=== PATIENT | female | born 1945 | race Caucasian/White ===

== ENCOUNTER 2016-08-31 15:49 | Observation (INO) | payer MEDICARE, SELFPAY ==
[2016-08-31] MEDS ORDERED: BABY ASPIRIN 81 MG CHEW PO ONE (16:11)
[2016-08-31] MEDS ORDERED: Sodium Chloride 0.9% 1000 ML 1,000 ML IV SCH (16:15)
[2016-08-31] MEDS ORDERED: BABY ASPIRIN 81 MG CHEW ONE (16:16)
[2016-08-31] MEDS ORDERED: Sodium Chloride 0.9% 1000 ML 1,000 ML ONE ×2 (16:16→19:06)
--- NOTE | 2016-08-31 16:19 | ERPHSYRPT ---
- History of Present Illness Time Seen by Provider: 08/31/16 16:05 Historian: patient, EMS Exam Limitations: no limitations Patient Subjective Stated Complaint: PT REPORTS CHEST PRESSURE BEGINNING CLAY 4 DAYS AGO-STATES THAT PRESSURE INCREASED TODAY-DENIES DIAPHOERSIS-DENIES N/V/D Triage Nursing Assessment: PT PINK WARM ET DRY-ALERT ET ANSWERING QUESTIONS- LUNGS CLEAR AFTER NEB TX-RESP NONLABORED Physician History: This is a 70-year-old white female she arrives with complaint of 4 days of chest tightness, shortness of breath, She states that today she felt as if she was passing out she states that she began having ear pain earlier today and felt like she had passed out. She denies any cough she is short of breath she has no nausea no vomiting no fevers. Past medical history includes cataracts, diabetes, COPD, GERD, myocardial infarction, arthritis, depression, chronic back pain, bilateral knee pain. Past surgical history includes appendectomy, hysterectomy, rectal surgery, heart catheter., Back surgery Timing/Duration: day(s) (chest pain for 4 days, patient feels like she had a syncopal episode earlier today) Activities at Onset: none Quality: other (heaviness) Chest Pain Radiation: no radiation Severity of Pain-Max: moderate Severity of Pain-Current: mild Modifying Factors: Improves With: nothing Associated Symptoms: shortness of breath, syncope, No nausea, No vomiting, No palpitations, No heartburn, No abdominal pain, No cough, No hurts to breathe, No diaphoresis, No chills, No fever, No fatigue, No weakness, No swelling/lump in chest, No rash, No headache, No dizziness, No edema, No back pain Prior Chest Pain/Cardiac Workup: heart attack Nitro Today/Relief: no nitro taken today Aspirin Treatment Today: 81 mg x 1 (patient takes aspirin 81 mg orally daily), 81 mg x 2 (Will give patient 162 mg orally in the emergency room) Allergies/Adverse Reactions: codeine [Codeine] Allergy (Severe, Verified 08/31/16 15:59) Iodinated Contrast Media - Oral and [IV Dye, Iodine Containing Contrast ] Allergy (Severe, Verified 08/31/16 15:59) levofloxacin [From Levaquin] Allergy (Severe, Verified 08/31/16 15:59) oxytetracycline [From Terramycin] Allergy (Severe, Verified 08/31/16 15:59) oxytetracycline HCl [From Terramycin] Allergy (Severe, Verified 08/31/16 15:59) Penicillins Allergy (Severe, Verified 08/31/16 15:59) Sulfa (Sulfonamide Antibiotics) [Sulfa(Sulfonamide Antibiotics)] Allergy (Severe , Verified 08/31/16 15:59) iodine Allergy (Unknown, Verified 08/31/16 15:59) Home Medications: Albuterol Sulfate 0.63 mg IH TID PRN 07/18/12 [History] Ascorbic Acid 500 mg [Vitamin C 500 MG] 500 mg PO DAILY 07/18/12 [History] Aspirin [Aspir 81] 81 mg PO DAILY 07/18/12 [History] Carvedilol 6.25 mg [Coreg 6.25 MG] 6.25 mg PO DAILY 07/18/12 [History] Clopidogrel Bisulfate 75 mg [PLAVIX 75 MG Tablet] 75 mg PO DAILY 07/18/12 [History] Cyanocobalamin (Vitamin B-12) [Vitamin B-12] 100 mcg PO DAILY 07/18/12 [History] Fluticasone/Salmeterol Disc [Advair 250-50 Diskus 14 Dose] 1 each IH BID 07/18/12 [History] Hydrocodon/Ibupr 7.5mg/200mg [Vicoprofen 7.5mg/200mg Tablet] 1 tab PO QID PRN 07/18/12 [History] Insulin Glargine,Hum.rec.anlog [Lantus] 35 unit SQ HS 07/18/12 [History] Quinapril HCl 10 mg [Accupril 10MG Tablet] 10 mg PO BID 07/18/12 [History] Theophylline Anhydrous 200 mg* [Arik-Dur 200 mg] 200 mg PO TID 07/18/12 [ History] Tiotropium [place] [Spiriva] 18 mcg IH DAILY 07/18/12 [History] Vitamin E Acid Succinate [Vitamin E] 200 unit PO DAILY 07/18/12 [History] Acetaminophen 500 mg [Tylenol Extra Strength 500 mg] 2 tab PO Q6H PRN 06/20 [History] Omeprazole 40 mg PO DAILY 07/19/12 [History] Insulin Lispro [Humalog] 23 units SQ ACHS 01/18/16 [History] Hx Tetanus, Diphtheria Vaccination/Date Given: Yes Hx Influenza Vaccination/Date Given: No Hx Pneumococcal Vaccination/Date Given: Yes Immunizations Up to Date: Yes - Review of Systems Constitutional: No Fever, No Chills Eyes: No Symptoms Ears, Nose, & Throat: No Symptoms, No Ear Pain, No Ear Discharge, No Hearing Changes, No Tinnitus, No Nose Pain, No Nose Congestion, No Nose Discharge, No Sinus Drainage, No Epistaxis, No Mouth Pain, No Mouth Swelling, No Loose Teeth, No Throat Pain, No Throat Swelling, No Hoarse, No Painful Swallowing, No Snoring Respiratory: Dyspnea, No No Symptoms, No Cough, No Cyanosis, No Dyspnea on Exertion (CRANDALL), No Wheezing Cardiac: Chest Pain Abdominal/Gastrointestinal: No Abdominal Pain, No Nausea, No Vomiting, No Diarrhea Genitourinary Symptoms: No Dysuria Musculoskeletal: No Back Pain, No Neck Pain Skin: No Rash Neurological: Other (syncopal episode today), No Focal Weakness, No Gait Changes , No Headache, No Irritability, No Lethargy, No Paralysis, No Parasthesia, No Seizure, No Sensory Changes, No Speech Changes, No Tics, No Tremors, No Vertigo Psychological: No Alcohol Abuse, No Drug Abuse Endocrine: No Symptoms All Other Systems: Reviewed and Negative - Past Medical History Pertinent Past Medical History: Yes Neurological History: No Pertinent History ENT History: Cataracts Cardiac History: Hypertension, Myocardial Infarction (MT) Respiratory History: COPD Endocrine Medical History: Diabetes Type II Musculoskeletal History: Arthritis GI Medical History: GERD History: No Pertinent History Psycho-Social History: Depression Female Reproductive Disorders: No Pertinent History Other Medical History: CHRONIC BACK PAIN, VENITA KNEE PAIN - Past Surgical History Past Surgical History: Yes Neuro Surgical History: No Pertinent History Cardiac: No Pertinent History Respiratory: No Pertinent History Gastrointestinal: Appendectomy Genitourinary: No Pertinent History Musculoskeletal: Other Female Surgical History: Hysterectomy Other Surgical History: rectal surgery,back surgery,heart cath - Social History Smoking Status: Never smoker Exposure to second hand smoke: No Drug Use: none Patient Lives Alone: No - Nursing Vital Signs Temperature: 98.3 F Temperature Source: Oral Pulse Rate: 142 Respiratory Rate: 22 Pain Intensity: 2 - Physical Exam General Appearance: mild distress, other (well-developed obese white female mild distress, alert oriented 3) Eye Exam: PERRL/EOMI, eyes nml inspection Ears, Nose, Throat Exam: normal ENT inspection, moist mucous membranes Neck Exam: normal inspection, non-tender, supple, full range of motion Respiratory Exam: normal breath sounds, lungs clear, No respiratory distress Cardiovascular Exam: tachycardia, other (heart regular tachycardic), No murmur Gastrointestinal/Abdomen Exam: soft, No tenderness, No mass Back Exam: normal inspection, No CVA tenderness, No vertebral tenderness Extremity Exam: normal inspection, normal range of motion Neurologic Exam: alert, oriented x 3, cooperative, manager port II-XII nml as tested, normal mood/affect, sensation nml, No motor deficits Skin Exam: normal color SpO2 Interpretation: normal (92%) SpO2: 92 Oxygen Delivery: Room Air - Course Nursing assessment & vital signs reviewed: Yes EKG Interpreted by Me: RATE (141bpm), Sinus Tach, NORMAL AXIS, Other (EKG, sinus tachycardia 141 bpm normal axis no acute ST or T wave changes noted.) - Radiology Exams Chest X-ray Interpretation: Interpreted by me, Negative, No Pneumonia, No Pneumothorax , Other (chest x-ray no pneumonia, no CHF, no pneumothorax no acute disease process noted) Ordered Tests: Active Orders 24 hr Category Date Time Status Bedrest with BRP/BSC ROUTINE Activity 08/31/16 18:24 Active Accucheck ACHS Care 08/31/16 18:24 Active Accucheck STAT Care 08/31/16 16:12 Completed Admission/Status Order ROUTINE Care 08/31/16 18:24 Active Call Admit Doctor for Orders ROUTINE Care 08/31/16 18:24 Active Code Status Order ROUTINE Care 08/31/16 18:24 Active EKG-ER Only STAT Care 08/31/16 16:11 Completed IV Care Q6H Care 08/31/16 18:24 Active Implement Chest Pain Pathway ROUTINE Care 08/31/16 18:24 Active Oxygen-ED Only NASAL CANNULA 2 lpm Care 08/31/16 16:11 Completed Wilber Huerta, Apply ROUTINE Care 08/31/16 18:24 Active Telemetry ROUTINE Care 08/31/16 18:24 Active Weight,Daily 0600 Care 08/31/16 18:24 Active 1800 Calorie ADA Diet 08/31/16 Breakfast Active Cardiac Diet Diet 08/31/16 Breakfast Active CHEST 1 VIEW (PORTABLE) Stat Exams 08/31/16 16:11 Taken CBC W DIFF Stat Lab 08/31/16 16:00 Completed CMP Stat Lab 08/31/16 16:00 Completed D-DIMER QUANTITATION Stat Lab 08/31/16 16:00 Completed LIPID PROFILE AM.LAB Lab 09/01/16 04:00 Ordered Lactic Acid Urgent Lab 08/31/16 16:30 Completed Lactic Acid Urgent Lab 08/31/16 17:21 Completed Manual Differential NC Stat Lab 08/31/16 16:00 Completed NT PRO BNP Stat Lab 08/31/16 16:00 Completed THEOPHYLLINE Stat Lab 08/31/16 16:00 Completed TROPONIN Q3H Lab 08/31/16 16:00 Completed TROPONIN Q3H Lab 08/31/16 19:17 Completed TROPONIN Q3H Lab 08/31/16 22:15 Ordered TROPONIN Q3H Lab 09/01/16 01:15 Ordered TROPONIN Q3H Lab 09/01/16 04:15 Ordered VENOUS BLOOD GAS Urgent Lab 08/31/16 16:30 Completed EKG Q8HX2,QAMX3,PRN RT 08/31/16 18:24 Active Pulse Oximetry Q4H RT 08/31/16 18:24 Active Transfer Order Routine Transfer 08/31/16 17:22 Completed Medication Summary Generic Name Dose Route Start Last Admin Trade Name Freq PRN Reason Stop Dose Admin Acetaminophen 650 mg 08/31/16 18:24 Tylenol 325 Mg PO 09/30/16 18:23 Q4H PRN PRN PAIN AND/OR FEVER Al Hydrox/Mg Hydrox/Simethicone 30 ml 08/31/16 18:24 Maalox Es 30 Ml Unit Dose PO 09/30/16 18:23 Q4H PRN PRN INDIGESTION Aspirin 162 mg 09/01/16 10:00 Ecotrin 325 Mg PO 10/01/16 09:59 DAILY SONAL Sodium Chloride 1,000 mls @ 100 mls/hr 08/31/16 18:24 08/31/16 19:09 Sodium Chloride 0.9% 500 Ml IV 09/30/16 18:23 100 mls/hr .Q10H SONAL Administration Insulin Aspart 0 unit 08/31/16 18:24 Novolog Insulin SQ 09/30/16 18:23 PRN PRN HYPERGLYCEMIA Magnesium Hydroxide 30 - 60 ml 08/31/16 18:24 Milk Of Magnesia 30 Ml PO 09/30/16 18:23 QDP PRN CONSTIPATION Ondansetron HCl 4 mg 08/31/16 18:24 Zofran 4 Mg/2 Ml Vial IV 09/30/16 18:23 Q4H PRN PRN NAUSEA/VOMITING Senna/Docusate Sodium 2 udtab 08/31/16 18:24 Senokot-S Tablet PO 09/30/16 18:23 BID PRN PRN CONSTIPATION Discontinued Medications Generic Name Dose Route Start Last Admin Trade Name Freq PRN Reason Stop Dose Admin Aspirin 162 mg 08/31/16 16:11 08/31/16 16:23 Baby Aspirin 81 Mg Chew PO 08/31/16 16:12 162 mg STAT ONE Administration Aspirin Confirm 08/31/16 16:16 Baby Aspirin 81 Mg Chew Administered 08/31/16 16:17 Dose 162 mg .ROUTE .STK-MED ONE Diltiazem HCl 10 mg 08/31/16 16:25 08/31/16 16:28 Cardizem Iv 50 Mg/10 Ml IV 08/31/16 16:26 10 mg STAT ONE Administration Diltiazem HCl Confirm 08/31/16 16:27 Cardizem Iv 50 Mg/10 Ml Administered 08/31/16 16:28 Dose 50 mg IV .STK-MED ONE Sodium Chloride 1,000 mls @ 100 mls/hr 08/31/16 16:15 08/31/16 16:23 Sodium Chloride 0.9% 1000 Ml IV 09/30/16 16:14 100 mls/hr .Q10H SONAL Administration Sodium Chloride Confirm 08/31/16 16:16 Sodium Chloride 0.9% 1000 Ml Administered 08/31/16 16:17 Dose 1,000 mls @ ud .ROUTE .STK-MED ONE Sodium Chloride Confirm 08/31/16 19:06 Sodium Chloride 0.9% 1000 Ml Administered 08/31/16 19:07 Dose 1,000 mls @ ud .ROUTE .STK-MED ONE Lab/Rad Data: Laboratory Result Diagrams 08/31/16 16:00 08/31/16 16:00 Laboratory Results 08/31/16 08/31/16 08/31/16 Range/Units 17:21 16:30 16:30 WBC (4.0-10.5) K/mm3 RBC (4.1-5.4) M/mm3 Hgb (12.0-16.0) gm/dl Hct (35-47) % MCV (78-100) fl MCH (26-32) pg MCHC (32-36) g/dl RDW (11.5-14.0) % Plt Count (150-450) K/mm3 MPV (6-9.5) fl Segmented Neutrophils (36.0-66.0) % Lymphocytes (Manual) (24-44) % Monocytes (Manual) (0.0-12.0) % Eosinophils (Manual) (0.00-3.0) % Differential Comment Platelet Estimate (NORMAL) D-Dimer (0.00-0.49) mg/L VBG pH 7.34 (7.32-7.42) VBG pCO2 at Pat Temp 63 H* (42-55) mm/Hg VBG pO2 at Pat Temp 34 (25-40) mm/Hg VBG HCO3 34.0 H* (22-28) meq/L VBG O2 Sat (Natali) 66.4 L (95-100) VBG Base Excess 5.5 H (-2.0-2.0) VBG Hemoglobin 17.3 VBG Carboxyhemoglobin 2.7 (0.0-6.9) % T HGB POC Potassium 4.2 (3.5-5.1) Sodium (136-145) mEq/L Potassium (3.5-5.1) mEq/L Chloride (98-107) mEq/L Carbon Dioxide (21-32) mEq/L Anion Gap (5-15) MEQ/L BUN (9-20) mg/dL Creatinine (0.55-1.30) mg/dl Estimated GFR ML/MIN Glucose (70-110) MG/DL Lactic Acid 1.3 2.5 H (0.4-2.0) Calcium (8.5-10.1) mg/dL Total Bilirubin (0.2-1.0) mg/dL AST (15-37) U/L ALT (12-78) U/L Alkaline Phosphatase (46-116) U/L Troponin I (0.000-0.056) ng/ml NT-Pro-B Natriuret Pep (0-125) pg/ml Serum Total Protein (6.4-8.2) gm/dL Albumin (3.4-5.0) g/dL Theophylline (10-20.0) ug/ml 08/31/16 08/31/16 08/31/16 Range/Units 16:00 16:00 16:00 WBC (4.0-10.5) K/mm3 RBC (4.1-5.4) M/mm3 Hgb (12.0-16.0) gm/dl Hct (35-47) % MCV (78-100) fl MCH (26-32) pg MCHC (32-36) g/dl RDW (11.5-14.0) % Plt Count (150-450) K/mm3 MPV (6-9.5) fl Segmented Neutrophils (36.0-66.0) % Lymphocytes (Manual) (24-44) % Monocytes (Manual) (0.0-12.0) % Eosinophils (Manual) (0.00-3.0) % Differential Comment Platelet Estimate (NORMAL) D-Dimer 0.333 (0.00-0.49) mg/L VBG pH (7.32-7.42) VBG pCO2 at Pat Temp (42-55) mm/Hg VBG pO2 at Pat Temp (25-40) mm/Hg VBG HCO3 (22-28) meq/L VBG O2 Sat (Natali) (95-100) VBG Base Excess (-2.0-2.0) VBG Hemoglobin VBG Carboxyhemoglobin (0.0-6.9) % T HGB POC Potassium (3.5-5.1) Sodium (136-145) mEq/L Potassium (3.5-5.1) mEq/L Chloride (98-107) mEq/L Carbon Dioxide (21-32) mEq/L Anion Gap (5-15) MEQ/L BUN (9-20) mg/dL Creatinine (0.55-1.30) mg/dl Estimated GFR ML/MIN Glucose (70-110) MG/DL Lactic Acid (0.4-2.0) Calcium (8.5-10.1) mg/dL Total Bilirubin (0.2-1.0) mg/dL AST (15-37) U/L ALT (12-78) U/L Alkaline Phosphatase (46-116) U/L Troponin I < 0.017 (0.000-0.056) ng/ml NT-Pro-B Natriuret Pep (0-125) pg/ml Serum Total Protein (6.4-8.2) gm/dL Albumin (3.4-5.0) g/dL Theophylline 13.9 (10-20.0) ug/ml 08/31/16 08/31/16 Range/Units 16:00 16:00 WBC 10.3 (4.0-10.5) K/mm3 RBC 5.71 H (4.1-5.4) M/mm3 Hgb 17.0 H (12.0-16.0) gm/dl Hct 49.2 H (35-47) % MCV 86.2 (78-100) fl MCH 29.7 (26-32) pg MCHC 34.6 (32-36) g/dl RDW 13.8 (11.5-14.0) % Plt Count 235 (150-450) K/mm3 MPV 10.4 H (6-9.5) fl Segmented Neutrophils 58 (36.0-66.0) % Lymphocytes (Manual) 30 (24-44) % Monocytes (Manual) 9 (0.0-12.0) % Eosinophils (Manual) 3 (0.00-3.0) % Differential Comment ABNORMAL Platelet Estimate NORMAL (NORMAL) D-Dimer (0.00-0.49) mg/L VBG pH (7.32-7.42) VBG pCO2 at Pat Temp (42-55) mm/Hg VBG pO2 at Pat Temp (25-40) mm/Hg VBG HCO3 (22-28) meq/L VBG O2 Sat (Natali) (95-100) VBG Base Excess (-2.0-2.0) VBG Hemoglobin VBG Carboxyhemoglobin (0.0-6.9) % T HGB POC Potassium (3.5-5.1) Sodium 143 (136-145) mEq/L Potassium 4.0 (3.5-5.1) mEq/L Chloride 103 (98-107) mEq/L Carbon Dioxide 32.5 H (21-32) mEq/L Anion Gap 11.6 (5-15) MEQ/L BUN 20 (9-20) mg/dL Creatinine 0.71 (0.55-1.30) mg/dl Estimated GFR > 60 ML/MIN Glucose 120 H (70-110) MG/DL Lactic Acid (0.4-2.0) Calcium 9.8 (8.5-10.1) mg/dL Total Bilirubin 0.7 (0.2-1.0) mg/dL AST 32 (15-37) U/L ALT 22 (12-78) U/L Alkaline Phosphatase 82 (46-116) U/L Troponin I (0.000-0.056) ng/ml NT-Pro-B Natriuret Pep < 5.0 (0-125) pg/ml Serum Total Protein 7.4 (6.4-8.2) gm/dL Albumin 3.9 (3.4-5.0) g/dL Theophylline (10-20.0) ug/ml - Progress Progress: improved Air Movement: fair Progress Note: 08/31/16 17:14 Patient feeling better after Cardizem and aspirin patient is receiving IV fluid bolus. Heart rate on arrival was 140 now running in the 70s. Troponin within normal limits BNP less than 5 d-dimer 0.33 chest x-ray no acute changes are noted EKG tachycardia otherwise no acute changes. Will discuss case with Dr. Cooper. 08/31/16 17:17 Case is discussed with Dr. Cooper Will place patient in observation telemetry. Diagnosis COPD with exacerbation, chest pain, tachycardia. Will continue IV fluids continue duo neb treatments continue serial cardiac enzymes. Will order lactate prior to leaving ER as per protocol - Departure Time of Disposition: 17:30 Departure Disposition: Observation Clinical Impression: COPD with exacerbation, Tachycardia Chest pain Qualifiers: Chest pain type: unspecified Qualified Code(s): R07.9 - Chest pain, unspecified Condition: Fair Critical Care Time: No
[2016-08-31] MEDS ORDERED: Cardizem IV 50 MG/10 ML IV ONE ×2 (16:25→16:27)
[2016-08-31 16:27] LABS: Mean Cell Volume 86.2 fl (78-100); Mean Platelet Volume 10.4 fl (6-9.5); Platelet Count 235 K/mm3 (150-450); Red Blood Count 5.71 M/mm3 (4.1-5.4); Red Cell Distribution Width 13.8 % (11.5-14.0); White Blood Count 10.3 K/mm3 (4.0-10.5)
[2016-08-31 16:34] LABS: Mean Corpuscular Hemoglobin 29.7 pg (26-32)
[2016-08-31 16:35] LABS: VBG BASE EXCESS 5.5 (-2.0-2.0); VBG CARBOXYHEMOGLOBIN 2.7 % T HGB (0.0-6.9); VBG HEMOGLOBIN 17.3; VBG O2 SATURATION 66.4 (95-100); VBG POTASSIUM 4.2 (3.5-5.1); VBG pH 7.34 (7.32-7.42)
[2016-08-31 16:56] LABS: ALBUMIN 3.9 g/dL (3.4-5.0); ALKALINE PHOSPHATASE 82 U/L (46-116); ANION GAP 11.6 MEQ/L (5-15); BILIRUBIN,TOTAL 0.7 mg/dL (0.2-1.0); BLOOD UREA NITROGEN 20 mg/dL (9-20); CHLORIDE 103 mEq/L (98-107); Carbon Dioxide 32.5 mEq/L (21-32); Glucose 120 MG/DL (70-110); SGOT/AST 32 U/L (15-37); SGPT/ALT 22 U/L (12-78); SODIUM 143 mEq/L (136-145); Total Protein 7.4 gm/dL (6.4-8.2)
[2016-08-31] MEDS ORDERED: MILK OF MAGNESIA 30 ML PO PRN (18:24)
[2016-08-31] MEDS ORDERED: Zofran 4 MG/2 ML VIAL IV PRN (18:24)
[2016-08-31] MEDS ORDERED: NovoLOG Insulin SQ PRN (18:24)
[2016-08-31] MEDS ORDERED: Senokot-S Tablet PO PRN (18:24)
[2016-08-31] MEDS ORDERED: MAALOX ES 30 ML UNIT DOSE PO PRN (18:24)
[2016-08-31] MEDS ORDERED: TYLENOL 325 MG PO PRN (18:24)
[2016-08-31 19:36] LABS: Eosinophil 3 % (0.00-3.0); Platelet Estimate NORMAL (NORMAL); Total Cells Counted 100
--- NOTE | 2016-08-31 20:54 | XRAY ---
Indication: Chest pain. Comparison: May 06, 2014 Portable chest remains clear. Heart and mediastinal structures within normal limits for AP portable technique. Bony thorax intact again with mild osteopenia and degenerative changes. Impression: Stable nonacute chest.
[2016-08-31] MEDS: Advair Hfa 230/21 Mcg COMMON CANISTER IH SCH (21:10)
[2016-08-31] MEDS ORDERED: PROVENTIL COMMON CANISTER IH PRN (21:17)
[2016-08-31] MEDS ORDERED: Lantus Insulin SQ SCH (22:00)
[2016-08-31] MEDS ORDERED: Nitrostat 0.4 MG Tablet SL PRN (22:32)
[2016-09-01 01:04] LABS: COMPLETE URINE MICROSCOPIC? NO; Collection Type CLEAN CATCH
[2016-09-01] MEDS ORDERED: Sodium Chloride 0.9% 1000 ML 1,000 ML ONE (04:17)
[2016-09-01] MEDS: Advair Hfa 230/21 Mcg COMMON CANISTER IH SCH (07:22)
[2016-09-01] MEDS ORDERED: NovoLOG Insulin SQ PRN (07:28)
[2016-09-01] MEDS ORDERED: INSULIN LISPRO SQ SCH (07:30)
[2016-09-01] MEDS ORDERED: Vitamin E 400 UNIT SOFTGEL PO SCH (10:00)
[2016-09-01] MEDS ORDERED: VITAMIN B-12 100 MCG PO SCH (10:00)
[2016-09-01] MEDS ORDERED: Vitamin C 500 MG PO SCH (10:00)
[2016-09-01] MEDS ORDERED: ECOTRIN 81 MG PO SCH (10:00)
[2016-09-01] MEDS ORDERED: Protonix 40MG Tablet PO SCH (10:00)
[2016-09-01] MEDS ORDERED: Ecotrin 325 MG PO SCH (10:00)
[2016-09-01] MEDS ORDERED: [UNRECOGNIZED DRUG - OTHER] PO SCH (10:00)
[2016-09-01] MEDS ORDERED: NON-FORMULARY ITEM (Omeprazole [Omeprazole] 40 MG) PO SCH (10:00)
[2016-09-01] MEDS ORDERED: PLAVIX 75 MG Tablet PO SCH (10:00)
[2016-09-01] MEDS ORDERED: Accupril 10MG Tablet PO SCH (10:00)
[2016-09-01] MEDS ORDERED: THEO-DUR 200 MG PO SCH (10:00)
[2016-09-01] MEDS ORDERED: Coreg 6.25 MG PO SCH (10:00)
[2016-09-01 11:50] VITALS: BP 151/69; PULSE 64; O2SAT 93
--- NOTE | 2016-09-01 16:28 | PCM.SSS ---
History of Present Illness - Chief Complaint Chief Complaint: chest pain, shortness of breath for 1-2 days History of Present Illness: is a 70 year old white female she arrives with complaint of 4 days of chest tightness, shortness of breath, She states that today she felt as if she was passing out she states that she began having ear pain earlier today and felt like she had passed out. She denies any cough she is short of breath she has no nausea no vomiting no fevers. Past medical history includes cataracts, diabetes, COPD, GERD, myocardial infarction, arthritis, depression, chronic back pain, bilateral knee pain. Past surgical history includes appendectomy, hysterectomy, rectal surgery, heart catheter., Back surgery Timing/Duration: day(s) (chest pain for 4 days, patient feels like she had a syncopal episode earlier today) Activities at Onset: none Quality: other (heaviness) Chest Pain Radiation: no radiation Severity of Pain-Max: moderate Severity of Pain-Current: mild Modifying Factors: Improves With: nothing Associated Symptoms: shortness of breath, syncope, No nausea, No vomiting, No palpitations, No heartburn, No abdominal pain, No cough, No hurts to breathe, No diaphoresis, No chills, No fever, No fatigue, No weakness, No swelling/lump in chest, No rash, No headache, No dizziness, No edema, No back pain Prior Chest Pain/Cardiac Workup: heart attack Nitro Today/Relief: no nitro taken today Aspirin Treatment Today: 81 mg x 1 (patient takes aspirin 81 mg orally daily), 81 mg x 2 (Will give patient 162 mg orally in the emergency room) - Review of Systems Constitutional: No Fever, No Chills Eyes: No Symptoms Ears, Nose, & Throat: No Symptoms Respiratory: Orthopnea, Short Of Breath, No Cough Cardiac: Chest Pain, No Edema, No Syncope Abdominal/Gastrointestinal: No Abdominal Pain, No Nausea, No Vomiting, No Diarrhea Genitourinary Symptoms: No Dysuria Musculoskeletal: No Back Pain, No Neck Pain Skin: No Rash Neurological: No Dizziness, No Focal Weakness, No Sensory Changes Psychological: No Symptoms Endocrine: No Symptoms Hematologic/Lymphatic: No Symptoms Immunological/Allergic: No Symptoms Medications & Allergies Home Medications: Home Medication List Albuterol Sulfate 0.63 mg IH TID PRN 07/18/12 [History Confirmed 08/31/16] Ascorbic Acid 500 mg [Vitamin C 500 MG] 500 mg PO DAILY 07/18/12 [History Confirmed 08/31/16] Aspirin [Aspir 81] 81 mg PO DAILY 07/18/12 [History Confirmed 08/31/16] Carvedilol 6.25 mg [Coreg 6.25 MG] 6.25 mg PO DAILY 07/18/12 [History Confirmed 08/31/16] Clopidogrel Bisulfate 75 mg [PLAVIX 75 MG Tablet] 75 mg PO DAILY 07/18/12 [History Confirmed 08/31/16] Cyanocobalamin (Vitamin B-12) [Vitamin B-12] 100 mcg PO DAILY 07/18/12 [History Confirmed 08/31/16] Insulin Glargine,Hum.rec.anlog [Lantus] 35 unit SQ HS 07/18/12 [History Confirmed 08/31/16] Quinapril HCl 10 mg [Accupril 10MG Tablet] 10 mg PO BID 07/18/12 [History Confirmed 08/31/16] Theophylline Anhydrous 200 mg* [Arik-Dur 200 mg] 200 mg PO TID 07/18/12 [ History Confirmed 08/31/16] Vitamin E Acid Succinate [Vitamin E] 200 unit PO DAILY 07/18/12 [History Confirmed 08/31/16] Omeprazole 40 mg PO DAILY 07/19/12 [History Confirmed 08/31/16] Insulin Lispro [Humalog] 23 units SQ ACHS 01/18/16 [History Confirmed 08/31/16] Allergies/Adverse Reactions: Allergies Allergy/AdvReac Type Severity Reaction Status Date / Time codeine [Codeine] Allergy Severe Verified 08/31/16 15:59 Iodinated Contrast Media - Allergy Severe Verified 08/31/16 15:59 Oral and [IV Dye, Iodine Containing Contrast ] levofloxacin [From Levaquin] Allergy Severe Verified 08/31/16 15:59 oxytetracycline Allergy Severe Verified 08/31/16 15:59 [From Terramycin] oxytetracycline HCl Allergy Severe Verified 08/31/16 15:59 [From Terramycin] Penicillins Allergy Severe Verified 08/31/16 15:59 Sulfa (Sulfonamide Allergy Severe Verified 08/31/16 15:59 Antibiotics) [Sulfa(Sulfonamide Antibiotics)] iodine Allergy Unknown Verified 08/31/16 15:59 - Past Medical History Past Medical History: Yes Neurological History: No Pertinent History ENT History: Cataracts Cardiac History: Hypertension, Myocardial Infarction (ME) Respiratory History: COPD Endocrine Medical History: Diabetes Type II Musculoskelatal History: Arthritis GI Medical History: GERD History: No Pertinent History Pyscho-Social History: Depression Reproductive Disorders: No Pertinent History Comment: CHRONIC BACK PAIN, VENITA KNEE PAIN - Female History Are you now?: No - Past Surgical History Past Surgical History: Yes Neuro Surgical History: No Pertinent History Cardiac History: No Pertinent History Respiratory Surgery: No Pertinent History GI Surgical History: Appendectomy Genitourinary Surgical Hx: No Pertinent History Musculskeletal Surgical Hx: Other Female Surgical History: Hysterectomy Other Surgical History: rectal surgery,back surgery,heart cath - Social History Smoking Status: Never smoker Exposure to second hand smoke: No Alcohol: None Drug Use: none - Physical Exam Vital Signs: Vital Signs - 24 hr Temp Pulse Resp BP Pulse Ox 09/01/16 11:46 98.3 F 64 17 151/69 93 L 09/01/16 08:00 98.2 F 66 18 152/68 94 L 09/01/16 07:00 52 L 18 92 L 09/01/16 04:00 97.9 F 60 18 142/72 95 09/01/16 00:01 60 09/01/16 00:00 98.0 F 60 16 119/60 94 L 08/31/16 21:10 65 15 94 L 08/31/16 20:30 98.3 F 142 H 22 92 L 08/31/16 20:00 98.3 F 65 15 132/63 94 L 08/31/16 19:53 97.5 F 65 19 132/63 94 L 08/31/16 17:15 69 16 85/38 94 L General Appearance: no apparent distress, alert Neurologic Exam: alert, oriented x 3, cooperative, normal mood/affect, nml cerebellar function, nml station & gait, sensation nml, No motor deficits Eye Exam: PERRL/EOMI, eyes nml inspection Ears, Nose, Throat Exam: normal ENT inspection, TMs normal, pharynx normal, moist mucous membranes Neck Exam: normal inspection, non-tender, supple, full range of motion Respiratory Exam: normal breath sounds, lungs clear, No respiratory distress Cardiovascular Exam: regular rate/rhythm, normal heart sounds, normal peripheral pulses Gastrointestinal/Abdomen Exam: soft, normal bowel sounds, No tenderness, No mass Back Exam: normal inspection, normal range of motion, No CVA tenderness, No vertebral tenderness Extremity Exam: normal inspection, normal range of motion, pelvis stable Skin Exam: normal color, warm, dry, No rash Lymphatic Exam: No adenopathy Results - Labs Lab/Micro Results: Accuchecks Date 09/01/16 Date 09/01/16 Date 08/31/16 Time 11:39 Time 07:08 Time 21:58 Accucheck Value: 284 Accucheck Value: 125 Accucheck Value: 210 Lab Results-Last 24 Hours 08/31/16 08/31/16 08/31/16 Range/Units 19:17 22:20 23:40 Hemoglobin A1c (4.5-6.2) Troponin I < 0.017 0.018 (0.000-0.056) ng/ml Triglycerides (30-200) mg/dL Cholesterol (100-200) mg/dL LDL Cholesterol (5-99) mg/dL HDL Cholesterol (35-60) mg/dL Heart Disease Risk Ratio Ur Collection Type CLEAN CATCH Urine Color YELLOW (YELLOW) Urine Appearance CLEAR (CLEAR) Urine pH 7.0 (5-6) Ur Specific [place] 1.015 (1.005-1.025) Urine Protein NEGATIVE (Negative) Urine Glucose (UA) NEGATIVE (NEGATIVE) mg/dL Urine Ketones NEGATIVE (NEGATIVE) Urine Nitrite NEGATIVE (NEGATIVE) Urine Bilirubin NEGATIVE (NEGATIVE) Urine Urobilinogen 1 (0-1) mg/dL Urine WBC (Auto) NEGATIVE (NEGATIVE) Urine RBC (Auto) NEGATIVE (0-5) Bubba/ul Specimen Received [id number] 09/01/16 09/01/16 09/01/16 Range/Units : 04:22 04:22 Hemoglobin A1c 6.9 H (4.5-6.2) Troponin I 0.020 < 0.017 (0.000-0.056) ng/ml Triglycerides (30-200) mg/dL Cholesterol (100-200) mg/dL LDL Cholesterol (5-99) mg/dL HDL Cholesterol (35-60) mg/dL Heart Disease Risk Ratio Ur Collection Type Urine Color (YELLOW) Urine Appearance (CLEAR) Urine pH (5-6) Ur Specific [place] (1.005-1.025) Urine Protein (Negative) Urine Glucose (UA) (NEGATIVE) mg/dL Urine Ketones (NEGATIVE) Urine Nitrite (NEGATIVE) Urine Bilirubin (NEGATIVE) Urine Urobilinogen (0-1) mg/dL Urine WBC (Auto) (NEGATIVE) Urine RBC (Auto) (0-5) Bubba/ul Specimen Received 09/01/16 Range/Units 04:22 Hemoglobin A1c (4.5-6.2) Troponin I (0.000-0.056) ng/ml Triglycerides 144 (30-200) mg/dL Cholesterol 152 (100-200) mg/dL LDL Cholesterol 84 (5-99) mg/dL HDL Cholesterol 54 (35-60) mg/dL Heart Disease Risk Ratio 2.8 Ur Collection Type Urine Color (YELLOW) Urine Appearance (CLEAR) Urine pH (5-6) Ur Specific [place] (1.005-1.025) Urine Protein (Negative) Urine Glucose (UA) (NEGATIVE) mg/dL Urine Ketones (NEGATIVE) Urine Nitrite (NEGATIVE) Urine Bilirubin (NEGATIVE) Urine Urobilinogen (0-1) mg/dL Urine WBC (Auto) (NEGATIVE) Urine RBC (Auto) (0-5) Bubba/ul Specimen Received Accuchecks Date 09/01/16 Date 09/01/16 Date 08/31/16 Time 11:39 Time 07:08 Time 21:58 Accucheck Value: 284 Accucheck Value: 125 Accucheck Value: 210 - Other Procedures and Tests Respiratory Therapy 08/31/16 19:00 Respiratory MDI Q12H 08/31/16 21:17 Respiratory MDI PRN 09/02/16 05:00 EKG DAILY 09/03/16 05:00 EKG DAILY Assessment/Plan (1) Chest pain Status: Acute Qualifiers: Chest pain type: unspecified Qualified Code(s): R07.9 - Chest pain, unspecified Code(s): R07.9 - CHEST PAIN, UNSPECIFIED (2) Tachycardia Status: Acute Code(s): R00.0 - TACHYCARDIA, UNSPECIFIED Hospital Summary - Hospital Course Hospital Course: Chief Complaint Diagnosis chest pain, shortness of breath for 1-2 days Allergies Allergy/AdvReac Type Severity Reaction Status Date / Time codeine [Codeine] Allergy Severe Verified 08/31/16 15:59 Iodinated Contrast Media - Allergy Severe Verified 08/31/16 15:59 Oral and [IV Dye, Iodine Containing Contrast ] levofloxacin [From Levaquin] Allergy Severe Verified 08/31/16 15:59 oxytetracycline Allergy Severe Verified 08/31/16 15:59 [From Terramycin] oxytetracycline HCl Allergy Severe Verified 08/31/16 15:59 [From Terramycin] Penicillins Allergy Severe Verified 08/31/16 15:59 Sulfa (Sulfonamide Allergy Severe Verified 08/31/16 15:59 Antibiotics) [Sulfa(Sulfonamide Antibiotics)] iodine Allergy Unknown Verified 08/31/16 15:59 Vital Signs (Last 24 hours) Temp Pulse Resp BP Pulse Ox 09/01/16 11:46 98.3 F 64 17 151/69 93 L 09/01/16 08:00 98.2 F 66 18 152/68 94 L 09/01/16 07:00 52 L 18 92 L 09/01/16 04:00 97.9 F 60 18 142/72 95 09/01/16 00:01 60 09/01/16 00:00 98.0 F 60 16 119/60 94 L 08/31/16 21:10 65 15 94 L 08/31/16 20:30 98.3 F 142 H 22 92 L 08/31/16 20:00 98.3 F 65 15 132/63 94 L 08/31/16 19:53 97.5 F 65 19 132/63 94 L 08/31/16 17:15 69 16 85/38 94 L Current Medications Discontinued Medications Generic Name Dose Route Start Last Admin Trade Name Freq PRN Reason Stop Dose Admin Acetaminophen 650 mg 08/31/16 18:24 Tylenol 325 Mg PO 09/30/16 18:23 Q4H PRN PRN PAIN AND/OR FEVER Al Hydrox/Mg Hydrox/Simethicone 30 ml 08/31/16 18:24 Maalox Es 30 Ml Unit Dose PO 09/30/16 18:23 Q4H PRN PRN INDIGESTION Albuterol Sulfate 2 puff 08/31/16 21:17 Proventil Common Canister IH 09/30/16 21:16 Q4HPRN PRN SHORTNESS OF BREATH/WHEEZING Ascorbic Acid 500 mg 09/01/16 10:00 09/01/16 10:23 Vitamin C 500 Mg PO 10/01/16 09:59 500 mg DAILY SONAL Administration Aspirin 162 mg 08/31/16 16:11 08/31/16 16:23 Baby Aspirin 81 Mg Chew PO 08/31/16 16:12 162 mg STAT ONE Administration Aspirin Confirm 08/31/16 16:16 Baby Aspirin 81 Mg Chew Administered 08/31/16 16:17 Dose 162 mg .ROUTE .STK-MED ONE Aspirin 81 mg 09/01/16 10:00 09/01/16 10:22 Ecotrin 81 Mg PO 10/01/16 09:59 81 mg DAILY SONAL Administration Carvedilol 6.25 mg 09/01/16 10:00 09/01/16 10:22 Coreg 6.25 Mg PO 10/01/16 09:59 6.25 mg DAILY SONAL Administration Clopidogrel Bisulfate 75 mg 09/01/16 10:00 09/01/16 10:22 Plavix 75 Mg Tablet PO 10/01/16 09:59 75 mg DAILY SONAL Administration Cyanocobalamin 100 mcg 09/01/16 10:00 09/01/16 10:23 Vitamin B-12 100 Mcg PO 10/01/16 09:59 100 mcg DAILY SONAL Administration Diltiazem HCl 10 mg 08/31/16 16:25 08/31/16 16:28 Cardizem Iv 50 Mg/10 Ml IV 08/31/16 16:26 10 mg STAT ONE Administration Diltiazem HCl Confirm 08/31/16 16:27 Cardizem Iv 50 Mg/10 Ml Administered 08/31/16 16:28 Dose 50 mg IV .STK-MED ONE Sodium Chloride 1,000 mls @ 100 mls/hr 08/31/16 16:15 08/31/16 16:23 Sodium Chloride 0.9% 1000 Ml IV 09/30/16 16:14 100 mls/hr .Q10H SONAL Administration Sodium Chloride Confirm 08/31/16 16:16 Sodium Chloride 0.9% 1000 Ml Administered 08/31/16 16:17 Dose 1,000 mls @ ud .ROUTE .STK-MED ONE Sodium Chloride 1,000 mls @ 100 mls/hr 08/31/16 18:24 09/01/16 04:40 Sodium Chloride 0.9% 500 Ml IV 09/30/16 18:23 100 mls/hr .Q10H SONAL Administration Sodium Chloride Confirm 08/31/16 19:06 Sodium Chloride 0.9% 1000 Ml Administered 08/31/16 19:07 Dose 1,000 mls @ ud .ROUTE .STK-MED ONE Sodium Chloride Confirm 09/01/16 04:17 Sodium Chloride 0.9% 1000 Ml Administered 09/01/16 04:18 Dose 1,000 mls @ ud .ROUTE .STK-MED ONE Insulin Aspart 0 unit 08/31/16 18:24 08/31/16 22:08 Novolog Insulin SQ 09/30/16 18:23 2 unit PRN PRN Administration HYPERGLYCEMIA Insulin Aspart 23 unit 09/01/16 07:28 09/01/16 11:37 Novolog Insulin SQ 10/01/16 07:27 23 unit BIDAC PRN Administration Insulin Glargine 35 unit 08/31/16 22:00 08/31/16 22:09 Lantus Insulin SQ 09/30/16 21:59 25 unit HS SONAL Administration Magnesium Hydroxide 30 - 60 ml 08/31/16 18:24 Milk Of Magnesia 30 Ml PO 09/30/16 18:23 QDP PRN CONSTIPATION Nitroglycerin 0.4 mg 08/31/16 22:32 Nitrostat 0.4 Mg Tablet SL 09/30/16 22:31 .Q5MIN PRN CHEST PAIN Ondansetron HCl 4 mg 08/31/16 18:24 Zofran 4 Mg/2 Ml Vial IV 09/30/16 18:23 Q4H PRN PRN NAUSEA/VOMITING Pantoprazole Sodium 40 mg 09/01/16 10:00 09/01/16 10:22 Protonix 40mg Tablet PO 10/01/16 09:59 40 mg DAILY SONAL Administration Quinapril HCl 10 mg 09/01/16 10:00 09/01/16 10:22 Accupril 10mg Tablet PO 10/01/16 09:59 10 mg BID SONAL Administration Fluticasone/Salmeterol 2 puff 08/31/16 19:00 09/01/16 07:22 Advair Hfa 230/21 Mcg Common Canister* IH 09/30/16 18:59 2 puff BIDRT SONAL Administration Senna/Docusate Sodium 2 udtab 08/31/16 18:24 Senokot-S Tablet PO 09/30/16 18:23 BID PRN PRN CONSTIPATION Theophylline 200 mg 09/01/16 10:00 09/01/16 10:22 Arik-Dur 200 Mg PO 10/01/16 09:59 200 mg TID SONAL Administration Vitamin E 400 u 09/01/16 10:00 09/01/16 10:23 Vitamin E 400 Unit Softgel PO 10/01/16 09:59 400 u DAILY SONAL Administration Intake & Output (Last 24 hours) 08/30/16 08/31/16 09/01/16 09/02/16 11:59 11:59 11:59 11:59 Intake Total 1662 1927 Output Total 1999 1849 Balance -338 77 Weight 87.317 kg Laboratory Results (Last 24 hours) 09/01/16 09/01/16 09/01/16 04:22 04:22 04:22 WBC RBC Hgb Hct MCV MCH MCHC RDW Plt Count MPV Segmented Neutrophils Lymphocytes (Manual) Monocytes (Manual) Eosinophils (Manual) Differential Comment Platelet Estimate D-Dimer VBG pH VBG pCO2 at Pat Temp VBG pO2 at Pat Temp VBG HCO3 VBG O2 Sat (Natali) VBG Base Excess VBG Hemoglobin VBG Carboxyhemoglobin POC Potassium Sodium Potassium Chloride Carbon Dioxide Anion Gap BUN Creatinine Estimated GFR Glucose Hemoglobin A1c 6.9 H Lactic Acid Calcium Total Bilirubin AST ALT Alkaline Phosphatase Troponin I < 0.017 NT-Pro-B Natriuret Pep Serum Total Protein Albumin Triglycerides 144 Cholesterol 152 LDL Cholesterol 84 HDL Cholesterol 54 Heart Disease Risk Ratio 2.8 Ur Collection Type Urine Color Urine Appearance Urine pH Ur Specific [place] Urine Protein Urine Glucose (UA) Urine Ketones Urine Nitrite Urine Bilirubin Urine Urobilinogen Urine WBC (Auto) Urine RBC (Auto) Theophylline Specimen Received 09/01/16 08/31/16 08/31/16 01: 23:40 22:20 WBC RBC Hgb Hct MCV MCH MCHC RDW Plt Count MPV Segmented Neutrophils Lymphocytes (Manual) Monocytes (Manual) Eosinophils (Manual) Differential Comment Platelet Estimate D-Dimer VBG pH VBG pCO2 at Pat Temp VBG pO2 at Pat Temp VBG HCO3 VBG O2 Sat (Natali) VBG Base Excess VBG Hemoglobin VBG Carboxyhemoglobin POC Potassium Sodium Potassium Chloride Carbon Dioxide Anion Gap BUN Creatinine Estimated GFR Glucose Hemoglobin A1c Lactic Acid Calcium Total Bilirubin AST ALT Alkaline Phosphatase Troponin I 0.020 0.018 NT-Pro-B Natriuret Pep Serum Total Protein Albumin Triglycerides Cholesterol LDL Cholesterol HDL Cholesterol Heart Disease Risk Ratio Ur Collection Type CLEAN CATCH Urine Color YELLOW Urine Appearance CLEAR Urine pH 7.0 Ur Specific [place] 1.015 Urine Protein NEGATIVE Urine Glucose (UA) NEGATIVE Urine Ketones NEGATIVE Urine Nitrite NEGATIVE Urine Bilirubin NEGATIVE Urine Urobilinogen 1 Urine WBC (Auto) NEGATIVE Urine RBC (Auto) NEGATIVE Theophylline Specimen Received [id number] 08/31/16 08/31/16 08/31/16 19:17 17:21 16:30 WBC RBC Hgb Hct MCV MCH MCHC RDW Plt Count MPV Segmented Neutrophils Lymphocytes (Manual) Monocytes (Manual) Eosinophils (Manual) Differential Comment Platelet Estimate D-Dimer VBG pH VBG pCO2 at Pat Temp VBG pO2 at Pat Temp VBG HCO3 VBG O2 Sat (Natali) VBG Base Excess VBG Hemoglobin VBG Carboxyhemoglobin POC Potassium Sodium Potassium Chloride Carbon Dioxide Anion Gap BUN Creatinine Estimated GFR Glucose Hemoglobin A1c Lactic Acid 1.3 2.5 H Calcium Total Bilirubin AST ALT Alkaline Phosphatase Troponin I < 0.017 NT-Pro-B Natriuret Pep Serum Total Protein Albumin Triglycerides Cholesterol LDL Cholesterol HDL Cholesterol Heart Disease Risk Ratio Ur Collection Type Urine Color Urine Appearance Urine pH Ur Specific [place] Urine Protein Urine Glucose (UA) Urine Ketones Urine Nitrite Urine Bilirubin Urine Urobilinogen Urine WBC (Auto) Urine RBC (Auto) Theophylline Specimen Received 08/31/16 08/31/16 08/31/16 16:30 16:00 16:00 WBC RBC Hgb Hct MCV MCH MCHC RDW Plt Count MPV Segmented Neutrophils Lymphocytes (Manual) Monocytes (Manual) Eosinophils (Manual) Differential Comment Platelet Estimate D-Dimer VBG pH 7.34 VBG pCO2 at Pat Temp 63 H* VBG pO2 at Pat Temp 34 VBG HCO3 34.0 H* VBG O2 Sat (Natali) 66.4 L VBG Base Excess 5.5 H VBG Hemoglobin 17.3 VBG Carboxyhemoglobin 2.7 POC Potassium 4.2 Sodium Potassium Chloride Carbon Dioxide Anion Gap BUN Creatinine Estimated GFR Glucose Hemoglobin A1c Lactic Acid Calcium Total Bilirubin AST ALT Alkaline Phosphatase Troponin I < 0.017 NT-Pro-B Natriuret Pep Serum Total Protein Albumin Triglycerides Cholesterol LDL Cholesterol HDL Cholesterol Heart Disease Risk Ratio Ur Collection Type Urine Color Urine Appearance Urine pH Ur Specific [place] Urine Protein Urine Glucose (UA) Urine Ketones Urine Nitrite Urine Bilirubin Urine Urobilinogen Urine WBC (Auto) Urine RBC (Auto) Theophylline 13.9 Specimen Received 08/31/16 08/31/16 08/31/16 16:00 16:00 16:00 WBC 10.3 RBC 5.71 H Hgb 17.0 H Hct 49.2 H MCV 86.2 MCH 29.7 MCHC 34.6 RDW 13.8 Plt Count 235 MPV 10.4 H Segmented Neutrophils 58 Lymphocytes (Manual) 30 Monocytes (Manual) 9 Eosinophils (Manual) 3 Differential Comment ABNORMAL Platelet Estimate NORMAL D-Dimer 0.333 VBG pH VBG pCO2 at Pat Temp VBG pO2 at Pat Temp VBG HCO3 VBG O2 Sat (Natali) VBG Base Excess VBG Hemoglobin VBG Carboxyhemoglobin POC Potassium Sodium 143 Potassium 4.0 Chloride 103 Carbon Dioxide 32.5 H Anion Gap 11.6 BUN 20 Creatinine 0.71 Estimated GFR > 60 Glucose 120 H Hemoglobin A1c Lactic Acid Calcium 9.8 Total Bilirubin 0.7 AST 32 ALT 22 Alkaline Phosphatase 82 Troponin I NT-Pro-B Natriuret Pep < 5.0 Serum Total Protein 7.4 Albumin 3.9 Triglycerides Cholesterol LDL Cholesterol HDL Cholesterol Heart Disease Risk Ratio Ur Collection Type Urine Color Urine Appearance Urine pH Ur Specific [place] Urine Protein Urine Glucose (UA) Urine Ketones Urine Nitrite Urine Bilirubin Urine Urobilinogen Urine WBC (Auto) Urine RBC (Auto) Theophylline Specimen Received Orders (Last 24 hours) Category Date Time Status Bedrest with BRP/BSC ROUTINE Activity 08/31/16 18:24 Active Accucheck ACHS Care 08/31/16 18:24 Active Accucheck STAT Care 08/31/16 16:12 Completed Admission/Status Order ROUTINE Care 08/31/16 18:24 Active Call Admit Doctor for Orders ROUTINE Care 08/31/16 18:24 Active Code Status Order ROUTINE Care 08/31/16 18:24 Active EKG-ER Only STAT Care 08/31/16 16:11 Completed IV Care Q6H Care 08/31/16 18:24 Active Implement Chest Pain Pathway ROUTINE Care 08/31/16 18:24 Active Implement Chest Pain Pathway ROUTINE Care 08/31/16 22:36 Active Oxygen-ED Only NASAL CANNULA 2 lpm Care 08/31/16 16:11 Completed [place] ROUTINE Care 08/31/16 18:24 Active Telemetry Q4H Care 08/31/16 18:24 Active Weight,Daily 0600 Care 08/31/16 18:24 Active Cardio-Pulmonary Rehab .as ordered Cons 08/31/16 19:30 Active Consult Cardiology ROUTINE Cons 09/01/16 13:20 Active Nutritional Admission Screen Diet 08/31/16 20:39 Active Discharge Routine Discharge 09/01/16 14:33 Ordered Discharge/Telephone Order Routine Discharge 09/01/16 14:33 Active CHEST 1 VIEW (PORTABLE) Stat Exams 08/31/16 16:11 Completed CBC W DIFF Stat Lab 08/31/16 16:00 Completed CMP Stat Lab 08/31/16 16:00 Completed D-DIMER QUANTITATION Stat Lab 08/31/16 16:00 Completed HEMOGLOBIN A1C Routine Lab 09/01/16 04:22 Completed LIPID PROFILE AM.LAB Lab 09/01/16 04:22 Completed Lactic Acid Urgent Lab 08/31/16 16:30 Completed Lactic Acid Urgent Lab 08/31/16 17:21 Completed Manual Differential NC Stat Lab 08/31/16 16:00 Completed NT PRO BNP Stat Lab 08/31/16 16:00 Completed THEOPHYLLINE Stat Lab 08/31/16 16:00 Completed TROPONIN Q3H Lab 08/31/16 16:00 Completed TROPONIN Q3H Lab 08/31/16 19:17 Completed TROPONIN Q3H Lab 08/31/16 22:20 Completed TROPONIN Q3H Lab 09/01/16 01:17 Completed TROPONIN Q3H Lab 09/01/16 04:22 Completed UA Routine Lab 08/31/16 23:40 Completed VENOUS BLOOD GAS Urgent Lab 08/31/16 16:30 Completed Acetaminophen 325 mg [Tylenol 325 mg] Med 08/31/16 18:24 Discontinued 650 mg PO Q4H PRN PRN Albuterol Common Canister [Proventil Common Canister Med 08/31/16 21:17 Discontinued ] 2 puff IH Q4HPRN PRN Ascorbic Acid 500 mg [Vitamin C 500 MG] Med 09/01/16 10:00 Discontinued 500 mg PO DAILY Aspirin 81 gm Chew [Baby Aspirin 81 mg Chew] Med 08/31/16 16:16 Discontinued 162 mg .ROUTE .STK-MED ONE Aspirin 81 gm Chew [Baby Aspirin 81 mg Chew] Med 08/31/16 16:11 Discontinued 162 mg PO STAT ONE Aspirin EC 81 mg [Ecotrin 81 mg] Med 09/01/16 10:00 Discontinued 81 mg PO DAILY Carvedilol 6.25 mg [Coreg 6.25 MG] Med 09/01/16 10:00 Discontinued 6.25 mg PO DAILY Clopidogrel Bisulfate 75 mg [PLAVIX 75 MG Tablet] Med 09/01/16 10:00 Discontinued 75 mg PO DAILY Cyanocobalamin 100 Mcg [Vitamin B-12 100 Mcg] Med 09/01/16 10:00 Discontinued 100 mcg PO DAILY Diltiazem HCl 50 mg/10 ml [Cardizem IV 50 MG/10 ML Med 08/31/16 16:25 Discontinued *] 10 mg IV STAT ONE Diltiazem HCl 50 mg/10 ml [Cardizem IV 50 MG/10 ML Med 08/31/16 16:27 Discontinued *] 50 mg IV .STK-MED ONE Fluticasone/Salmeterol 230/21 [Advair Hfa 230/21 Mcg Med 08/31/16 19:00 Discontinued COMMON CANISTER*] 2 puff IH BIDRT Insulin Aspart [NovoLOG Insulin] Med 09/01/16 07:28 Discontinued 23 unit SQ BIDAC PRN Insulin Aspart [NovoLOG Insulin] Med 08/31/16 18:24 Discontinued See Dose Instructions SQ PRN PRN Insulin Glargine [Lantus Insulin] Med 08/31/16 22:00 Discontinued 35 unit SQ HS Mag Hydrox/Al Hydrox/Simeth [Maalox Es 30 ml Unit Med 08/31/16 18:24 Discontinued Dose] 30 ml PO Q4H PRN PRN Magnesium Hydroxide 30 ml [Milk of Magnesia 30 ml Med 08/31/16 18:24 Discontinued ] 30 - 60 ml PO QDP PRN NaCl 0.9% 1000 ml [Sodium Chloride 0.9% 1000 ML] 1,000 Med 08/31/16 16:16 Discontinued ml .ROUTE UD NaCl 0.9% 1000 ml [Sodium Chloride 0.9% 1000 ML] 1,000 Med 08/31/16 19:06 Discontinued ml .ROUTE UD NaCl 0.9% 1000 ml [Sodium Chloride 0.9% 1000 ML] 1,000 Med 09/01/16 04:17 Discontinued ml .ROUTE UD NaCl 0.9% 1000 ml [Sodium Chloride 0.9% 1000 ML] 1,000 Med 08/31/16 16:15 Discontinued ml IV 100 mls/hr NaCl 0.9% 500 ml [Sodium Chloride 0.9% 500 ML] 1,000 ml Med 08/31/16 18:24 Discontinued IV 100 mls/hr Nitroglycerin 0.4 mg Tablet [Nitrostat 0.4 MG Tablet Med 08/31/16 22:32 Discontinued ] 0.4 mg SL .Q5MIN PRN Ondansetron HCl 4 mg/2 ml [Zofran 4 MG/2 ML VIAL] Med 08/31/16 18:24 Discontinued 4 mg IV Q4H PRN PRN PANTOPRAZOLE 40 mg Tablet [Protonix 40MG Tablet] Med 09/01/16 10:00 Discontinued 40 mg PO DAILY Quinapril HCl 10 mg [Accupril 10MG Tablet] Med 09/01/16 10:00 Discontinued 10 mg PO BID Senna/Docusate Sodium Tab [Senokot-S Tablet] Med 08/31/16 18:24 Discontinued 2 udtab PO BID PRN PRN Theophylline Anhydrous 200 mg* [Arik-Dur 200 mg] Med 09/01/16 10:00 Discontinued 200 mg PO TID Vitamin E 400 Units [Vitamin E 400 UNIT SOFTGEL] Med 09/01/16 10:00 Discontinued 400 u PO DAILY EKG DAILY RT 09/01/16 05:00 Completed EKG DAILY RT 09/02/16 05:00 Active EKG DAILY RT 09/03/16 05:00 Active EKG Q8HX2,QAMX3,PRN RT 08/31/16 18:24 Completed EKG ROUTINE RT 08/31/16 23:54 Completed Pulse Oximetry Q4H RT 08/31/16 18:24 Active Respiratory MDI PRN RT 08/31/16 21:17 Active Respiratory MDI Q12H RT 08/31/16 19:00 Active Respiratory Therapy Consult ROUTINE RT 08/31/16 21:19 Completed Transfer Order Routine Transfer 08/31/16 17:22 Completed Patient Care Notes (Last 24 hours) 09/01/16 14:20 Nursing Note by Jovana Cooley called [facility] for consult. stated will ask Dr Dash who is covering for Dr Blum if he would still do the cardiology since a stethoscope isn't available. Stated to fax all paperwork and will call back. Paper work faxed. Dr Dash's office return call and stated that he was too busy to do the consult today. Dr Epstein notified of unable to do consult today with Dr Dash. Stated to dc patient home and schedule as an outpatient appointment. Pt states she has an appointment scheduled with DR Epstein on with her . Initialized on 09/01/16 14:20 - END OF NOTE 09/01/16 11:39 Nursing Note by Jovana Cooley blood sugar 284, pt states wanted the 23 units of insulin like she takes at home. sliding scale call for 4 units. states that won't be enough and I would rather take the 23 units since i"m getting ready to eat. Initialized on 09/01/16 11:39 - END OF NOTE - Vitals & Intake/Output Vital Signs: Vital Signs Temperature 98.3 F 09/01/16 11:46 Pulse Rate 64 09/01/16 11:46 Respiratory Rate 17 09/01/16 11:46 Blood Pressure 151/69 09/01/16 11:46 O2 Sat by Pulse Oximetry 93 L 09/01/16 11:46 Oxygen-Last Documented O2 Percentage 2 Liters = 28% Intake & Output: Intake & Output 08/30/16 08/31/16 09/01/16 09/02/16 11:59 11:59 11:59 11:59 Intake Total 4622 1927 Output Total 1999 1849 Balance -338 77 Weight 87.317 kg - Lab Result Diagrams: 08/31/16 16:00 08/31/16 16:00 Lab Results-Last 24 Hrs: Accuchecks Date 09/01/16 Date 09/01/16 Date 08/31/16 Time 11:39 Time 07:08 Time 21:58 Accucheck Value: 284 Accucheck Value: 125 Accucheck Value: 210 Lab Results-Last 24 Hours 08/31/16 08/31/16 08/31/16 Range/Units 19:17 22:20 23:40 Hemoglobin A1c (4.5-6.2) Troponin I < 0.017 0.018 (0.000-0.056) ng/ml Triglycerides (30-200) mg/dL Cholesterol (100-200) mg/dL LDL Cholesterol (5-99) mg/dL HDL Cholesterol (35-60) mg/dL Heart Disease Risk Ratio Ur Collection Type CLEAN CATCH Urine Color YELLOW (YELLOW) Urine Appearance CLEAR (CLEAR) Urine pH 7.0 (5-6) Ur Specific [place] 1.015 (1.005-1.025) Urine Protein NEGATIVE (Negative) Urine Glucose (UA) NEGATIVE (NEGATIVE) mg/dL Urine Ketones NEGATIVE (NEGATIVE) Urine Nitrite NEGATIVE (NEGATIVE) Urine Bilirubin NEGATIVE (NEGATIVE) Urine Urobilinogen 1 (0-1) mg/dL Urine WBC (Auto) NEGATIVE (NEGATIVE) Urine RBC (Auto) NEGATIVE (0-5) Bubba/ul Specimen Received [id number] 09/01/16 09/01/16 09/01/16 Range/Units : 04:22 04:22 Hemoglobin A1c 6.9 H (4.5-6.2) Troponin I 0.020 < 0.017 (0.000-0.056) ng/ml Triglycerides (30-200) mg/dL Cholesterol (100-200) mg/dL LDL Cholesterol (5-99) mg/dL HDL Cholesterol (35-60) mg/dL Heart Disease Risk Ratio Ur Collection Type Urine Color (YELLOW) Urine Appearance (CLEAR) Urine pH (5-6) Ur Specific [place] (1.005-1.025) Urine Protein (Negative) Urine Glucose (UA) (NEGATIVE) mg/dL Urine Ketones (NEGATIVE) Urine Nitrite (NEGATIVE) Urine Bilirubin (NEGATIVE) Urine Urobilinogen (0-1) mg/dL Urine WBC (Auto) (NEGATIVE) Urine RBC (Auto) (0-5) Bubba/ul Specimen Received 09/01/16 Range/Units 04:22 Hemoglobin A1c (4.5-6.2) Troponin I (0.000-0.056) ng/ml Triglycerides 144 (30-200) mg/dL Cholesterol 152 (100-200) mg/dL LDL Cholesterol 84 (5-99) mg/dL HDL Cholesterol 54 (35-60) mg/dL Heart Disease Risk Ratio 2.8 Ur Collection Type Urine Color (YELLOW) Urine Appearance (CLEAR) Urine pH (5-6) Ur Specific [place] (1.005-1.025) Urine Protein (Negative) Urine Glucose (UA) (NEGATIVE) mg/dL Urine Ketones (NEGATIVE) Urine Nitrite (NEGATIVE) Urine Bilirubin (NEGATIVE) Urine Urobilinogen (0-1) mg/dL Urine WBC (Auto) (NEGATIVE) Urine RBC (Auto) (0-5) Bubba/ul Specimen Received Micro Results-Entire Visit: Accuchecks Date 09/01/16 Date 09/01/16 Date 08/31/16 Time 11:39 Time 07:08 Time 21:58 Accucheck Value: 284 Accucheck Value: 125 Accucheck Value: 210 - Procedures and Test Procedures and Tests throughout Hospitalization: Therapy Orders & Screens 08/31/16 19:00 Respiratory MDI Q12H Comment: ADVAIR 230/21 2 PUFFS BID Diagnosis: COPD, Tachycardia, Chest pain 08/31/16 21:17 Respiratory MDI PRN Comment: ALBUTEROL 2 PUFFS Q4HPRN FOR SOB/WHEEZING Diagnosis: COPD, Tachycardia, Chest pain 08/31/16 21:19 Respiratory Therapy Consult ROUTINE Comment: Reason For Exam: Diagnosis: COPD, Tachycardia, Chest pain 08/31/16 23:54 EKG ROUTINE Comment: Diagnosis: COPD, Tachycardia, Chest pain 09/01/16 05:00 EKG DAILY Comment: Diagnosis: COPD, Tachycardia, Chest pain 09/02/16 05:00 EKG DAILY Comment: Diagnosis: COPD, Tachycardia, Chest pain 09/03/16 05:00 EKG DAILY Comment: Diagnosis: COPD, Tachycardia, Chest pain - Discharge Discharge Date: 09/01/16 Disposition: Home, Self-Care Condition: Fair Prescriptions: Continue Vitamin E Acid Succinate [Vitamin E] 200 unit PO DAILY Ascorbic Acid 500 mg [Vitamin C 500 MG] 500 mg PO DAILY Cyanocobalamin (Vitamin B-12) [Vitamin B-12] 100 mcg PO DAILY Clopidogrel Bisulfate 75 mg [PLAVIX 75 MG Tablet] 75 mg PO DAILY Albuterol Sulfate 0.63 mg IH TID PRN PRN Reason: Cough Insulin Glargine,Hum.rec.anlog [Lantus] 35 unit SQ HS Carvedilol 6.25 mg [Coreg 6.25 MG] 6.25 mg PO DAILY Theophylline Anhydrous 200 mg* [Arik-Dur 200 mg] 200 mg PO TID Quinapril HCl 10 mg [Accupril 10MG Tablet] 10 mg PO BID Aspirin [Aspir 81] 81 mg PO DAILY Omeprazole 40 mg PO DAILY Insulin Lispro [Humalog] 23 units SQ ACHS Instructions: Chronic Obstructive Pulmonary Disease, Atypical Chest Pain Follow up with: JERMAIN BLUM MD [NON-STAFF PHY W/O PRIVILEGES] - 09/07/16 9:30 am RENETTA EPSTEIN MD [Primary Care Provider] - 09/03/16 (continue with follow up appointment already scheduled with DR Epstein.) Forms: Discharge Instructions, Discharge Skin Assessment
== END 2016-09-01 15:10 | disposition home or self-care (01) ==
LOC: ED 15:49 → ICU 17:58
PROVIDERS: ADMIT General Practice; ATTEND General Practice
DX: R07.89 Other chest pain (principal); R00.0 Tachycardia, unspecified; E11.9 Type 2 diabetes mellitus without complications; J44.9 Chronic obstructive pulmonary disease, unspecified; K21.9 Gastro-esophageal reflux disease without esophagitis; F32.9 Major depressive disorder, single episode, unspecified; M19.90 Unspecified osteoarthritis, unspecified site; I10 Essential (primary) hypertension; I25.2 Old myocardial infarction; M54.9 Dorsalgia, unspecified; G89.29 Other chronic pain; M25.562 Pain in left knee; M25.561 Pain in right knee; Z79.4 Long term (current) use of insulin; Z79.899 Other long term (current) drug therapy
CPT/HCPCS: 36000; 36415; 71010; 80053; 80061; 80198; 81002; 82805; 82962; 83036; 83605; 83721; 83880; 84484; 85025; 85379; 93005; 93041; 93268; 94640; 94760; 96360; 96361; 99284; G0378; Q3014

== ENCOUNTER 2016-10-27 21:37 | Observation (INO) | payer MEDICARE, SELFPAY ==
--- NOTE | 2016-10-27 22:09 | ERPHSYRPT ---
- History of Present Illness Time Seen by Provider: 10/27/16 22:09 Source: patient Exam Limitations: no limitations Patient Subjective Stated Complaint: STATES THAT SHE HAS HAD CHILLS AND COUGH SINCE YESTERDAY - STATES THAT WHEN SHE WAS SHOPPING AT [employer] TODAY AT 1800, SHE BEGAN TO HAVE CHEST PAIN - WHEN SHE WENT HOME AND LAYED DOWN TO SLEEP TONIGHT, SHE BEGAN TO HAVE SHORTNESS OF BREATH AND NUMBNESS IN THE FACE Triage Nursing Assessment: WC TO TREATMENT AREA - WADDLING GAIT TO CART - MOVES ALL EXTREMITIES WITH EQUAL STRENGTH. ALERT/ORIENTED - PUPILS PERRL: 5MM. SKIN FLUSHED/HOT/DRY - NO RASH/INJURY. RESPS LABORED PER EXERTION ET HACKING, LOOSE COUGH Physician History: The patient is a 70-year-old female complaining of a rapid heart rate, chest pain, and cough that began about 4 hours ago. She is slightly short of breath as well. She has a past medical history of COPD, hypertension, diabetes, and congestive heart failure. Timing/Duration: hour(s) (4) Activities at Onset: none Severity of Dyspnea-Max: mild Severity of Dyspnea-Current: mild Possible Cause: occasional episodes Modifying Factors: Improves With: coughing, exertion Associated Symptoms: cough, wheezing, heart racing Allergies/Adverse Reactions: codeine [Codeine] Allergy (Severe, Verified 10/27/16 21:48) Iodinated Contrast Media - Oral and [IV Dye, Iodine Containing Contrast ] Allergy (Severe, Verified 10/27/16 21:48) levofloxacin [From Levaquin] Allergy (Severe, Verified 10/27/16 21:48) oxytetracycline [From Terramycin] Allergy (Severe, Verified 10/27/16 21:48) oxytetracycline HCl [From Terramycin] Allergy (Severe, Verified 10/27/16 21:48) Penicillins Allergy (Severe, Verified 10/27/16 21:48) Sulfa (Sulfonamide Antibiotics) [Sulfa(Sulfonamide Antibiotics)] Allergy (Severe , Verified 10/27/16 21:48) iodine Allergy (Unknown, Verified 10/27/16 21:48) Home Medications: Albuterol Sulfate 0.63 mg IH TID PRN 07/18/12 [History] Ascorbic Acid 500 mg [Vitamin C 500 MG] 500 mg PO DAILY 07/18/12 [History] Aspirin [Aspir 81] 81 mg PO DAILY 07/18/12 [History] Carvedilol 6.25 mg [Coreg 6.25 MG] 6.25 mg PO DAILY 07/18/12 [History] Clopidogrel Bisulfate 75 mg [PLAVIX 75 MG Tablet] 75 mg PO DAILY 07/18/12 [History] Cyanocobalamin (Vitamin B-12) [Vitamin B-12] 100 mcg PO DAILY 07/18/12 [History] Insulin Glargine,Hum.rec.anlog [Lantus] 35 unit SQ HS 07/18/12 [History] Quinapril HCl 10 mg [Accupril 10MG Tablet] 10 mg PO BID 07/18/12 [History] Theophylline Anhydrous 200 mg* [Arik-Dur 200 mg] 200 mg PO TID 07/18/12 [ History] Vitamin E Acid Succinate [Vitamin E] 200 unit PO DAILY 07/18/12 [History] Omeprazole 40 mg PO DAILY 07/19/12 [History] Insulin Lispro [Humalog] 23 units SQ ACHS 01/18/16 [History] Hx Tetanus, Diphtheria Vaccination/Date Given: Yes Hx Influenza Vaccination/Date Given: No Hx Pneumococcal Vaccination/Date Given: No Immunizations Up to Date: Yes - Review of Systems Constitutional: No Fever, No Chills Eyes: No Symptoms Ears, Nose, & Throat: No Symptoms Respiratory: Cough, Dyspnea, Wheezing Cardiac: Chest Pain Abdominal/Gastrointestinal: No Abdominal Pain, No Nausea, No Vomiting, No Diarrhea Genitourinary Symptoms: No Dysuria Musculoskeletal: No Back Pain, No Neck Pain Skin: No Symptoms Neurological: No Dizziness, No Focal Weakness, No Sensory Changes Psychological: No Symptoms Endocrine: No Symptoms Hematologic/Lymphatic: No Symptoms Immunological/Allergic: No Symptoms All Other Systems: Reviewed and Negative - Past Medical History Pertinent Past Medical History: Yes Neurological History: No Pertinent History ENT History: Cataracts Cardiac History: Hypertension, Myocardial Infarction (MD) Respiratory History: COPD Endocrine Medical History: Diabetes Type II Musculoskeletal History: Arthritis GI Medical History: Cirrhosis, GERD History: No Pertinent History Psycho-Social History: Depression Female Reproductive Disorders: No Pertinent History Other Medical History: CHRONIC BACK PAIN, VENITA KNEE PAIN - Past Surgical History Past Surgical History: Yes Neuro Surgical History: No Pertinent History Cardiac: Cardiac Catheterization Respiratory: No Pertinent History Gastrointestinal: Appendectomy, Cholecystectomy Genitourinary: No Pertinent History Musculoskeletal: Other Female Surgical History: Hysterectomy Other Surgical History: rectal surgery, back surgery - Social History Smoking Status: Former smoker Exposure to second hand smoke: No Drug Use: none Patient Lives Alone: No - Female History Hx Last Menstrual Period: HYST - Nursing Vital Signs Nursing Vital Signs: Initial Vital Signs Temperature 98.8 F Temperature Source Rectal Pulse Rate [] 142 Pulse Rate 70 Respiratory Rate 16 Blood Pressure [] 109/60 Pain Intensity 3 - Physical Exam General Appearance: mild distress Eye Exam: PERRL/EOMI Neck Exam: normal inspection, supple Respiratory Exam: diminished breath sounds, wheezing Cardiovascular/Chest Exam: tachycardia Abdominal/Gastrointestinal Exam: soft, No tenderness, No distention, No mass Rectal Exam: not done Extremity Exam: non-tender, normal range of motion, normal inspection, no calf tenderness, no pedal edema Neurologic Exam: alert, oriented x 3, cooperative, fur dressing supervisor II-XII nml as tested, sensation nml, No motor deficits Skin Exam: normal color, warm, No dry SpO2 Interpretation: normal SpO2: 96 Oxygen Delivery: Room Air - Course EKG Interpreted by Me: A-fib (HR is in 140s and p waves are not apparent. Rate is tachycardic and appears to be A-fib in RVR.), NORMAL AXIS, Ischemic ST-T changes - Radiology Exams Chest X-ray Interpretation: Interpreted by me, Negative (comparison CXR 05/06/14) Ordered Tests: Active Orders 24 hr Category Date Time Status Human Resource Assistant STAT Care 10/27/16 22:10 Active EKG-ER Only STAT Care 10/27/16 22:10 Active IV Insertion STAT Care 10/27/16 22:10 Active IV Insertion-2nd Peripheral STAT Care 10/27/16 22:19 Active Oxygen-ED Only NASAL CANNULA 2 lpm Care 10/27/16 22:10 Active CHEST 2 VIEWS (PA AND LAT) Stat Exams 10/27/16 22:11 Taken CBC W DIFF Stat Lab 10/27/16 22:20 Completed CMP Stat Lab 10/27/16 22:20 Completed Manual Differential NC Stat Lab 10/27/16 22:20 Completed NT PRO BNP Stat Lab 10/27/16 22:20 Completed TROPONIN Q3H Lab 10/27/16 22:20 Completed TROPONIN Q3H Lab 10/28/16 01:15 Ordered TROPONIN Q3H Lab 10/28/16 04:15 Ordered TROPONIN Q3H Lab 10/28/16 07:15 Ordered TROPONIN Q3H Lab 10/28/16 10:15 Ordered Respiratory Nebulizer STAT RT 10/27/16 22:13 Completed Medication Summary Generic Name Dose Route Start Last Admin Trade Name Freq PRN Reason Stop Dose Admin Sodium Chloride 1,000 mls @ 30 mls/hr 10/27/16 22:46 10/27/16 22:49 Sodium Chloride 0.9% 1000 Ml IV 10/28/16 22:45 30 mls/hr .Q24H STA Administration Discontinued Medications Generic Name Dose Route Start Last Admin Trade Name Freq PRN Reason Stop Dose Admin Albuterol/Ipratropium 3 ml 10/27/16 22:12 10/27/16 22:32 Duoneb 0.5-3 Mg/3 Ml Neb IH 10/27/16 22:13 3 ml STAT ONE Administration Albuterol/Ipratropium Confirm 10/27/16 22:24 Duoneb 0.5-3 Mg/3 Ml Neb Administered 10/27/16 22:25 Dose 3 ml IH .STK-MED ONE Diltiazem HCl Confirm 10/27/16 22:11 Cardizem Iv 50 Mg/10 Ml Administered 10/27/16 22:12 Dose 50 mg IV .STK-MED ONE Diltiazem HCl 20 mg 10/27/16 22:13 10/27/16 22:21 Cardizem Iv 50 Mg/10 Ml IV 10/27/16 22:14 20 mg STAT ONE Administration Sodium Chloride Confirm 10/27/16 22:10 Sodium Chloride 0.9% 1000 Ml Administered 10/27/16 22:11 Dose 1,000 mls @ ud .ROUTE .STK-MED ONE Methylprednisolone Sodium Succinate Confirm 10/27/16 22:10 Solu-Medrol 125 Mg Administered 10/27/16 22:11 Dose 125 mg .ROUTE .STK-MED ONE Methylprednisolone Sodium Succinate 125 mg 10/27/16 22:12 10/27/16 22:21 Solu-Medrol 125 Mg IV 10/27/16 22:13 125 mg STAT ONE Administration Lab/Rad Data: Laboratory Result Diagrams 10/27/16 22:20 10/27/16 22:20 Laboratory Results 10/27/16 10/27/16 10/27/16 Range/Units 22:20 22:20 22:20 WBC 12.7 H (4.0-10.5) K/mm3 RBC 5.13 (4.1-5.4) M/mm3 Hgb 15.2 (12.0-16.0) gm/dl Hct 44.9 (35-47) % MCV 87.5 (78-100) fl MCH 29.6 (26-32) pg MCHC 33.9 (32-36) g/dl RDW 14.3 H (11.5-14.0) % Plt Count 211 (150-450) K/mm3 MPV 10.2 H (6-9.5) fl Segmented Neutrophils 56 (36.0-66.0) % Lymphocytes (Manual) 32 (24-44) % Monocytes (Manual) 9 (0.0-12.0) % Eosinophils (Manual) 3 (0.00-3.0) % Differential Comment NORMAL Platelet Estimate NORMAL (NORMAL) Sodium 140 (136-145) mEq/L Potassium 4.1 (3.5-5.1) mEq/L Chloride 104 (98-107) mEq/L Carbon Dioxide 26.8 (21-32) mEq/L Anion Gap 13.6 (5-15) MEQ/L BUN 21 H (9-20) mg/dL Creatinine 1.37 H (0.55-1.30) mg/dl Estimated GFR 40 ML/MIN Glucose 232 H (70-110) MG/DL Calcium 9.0 (8.5-10.1) mg/dL Total Bilirubin 1.0 (0.2-1.0) mg/dL AST 30 (15-37) U/L ALT 22 (12-78) U/L Alkaline Phosphatase 79 (46-116) U/L Troponin I < 0.017 (0.000-0.056) ng/ml NT-Pro-B Natriuret Pep 100 (0-125) pg/ml Serum Total Protein 6.5 (6.4-8.2) gm/dL Albumin 3.7 (3.4-5.0) g/dL - Progress Progress: improved Air Movement: good Progress Note: 10/27/16 22:20 Pt given diltiazem 20 mg IV with rapid conversion to RRR. 10/27/16 23:[address] Cooper and pt will be admitted. Blood Culture(s) Obtained: No Antibiotics given: No Discussed with .: Kenneth Will see patient in: hospital (observation) Counseled pt/family regarding: lab results, diagnosis, rad results - Departure Time of Disposition: 23:30 Departure Disposition: Observation (per Dr Cooper) Clinical Impression: Atrial fibrillation with RVR Condition: Stable Critical Care Time: No
[2016-10-27] MEDS ORDERED: Sodium Chloride 0.9% 1000 ML 1,000 ML ONE (22:10)
[2016-10-27] MEDS ORDERED: solu-MEDROL 125 MG ONE (22:10)
[2016-10-27] MEDS ORDERED: Cardizem IV 50 MG/10 ML IV ONE ×2 (22:11→22:13)
[2016-10-27] MEDS ORDERED: solu-MEDROL 125 MG IV ONE (22:12)
[2016-10-27] MEDS ORDERED: DUONEB 0.5-3 MG/3 ml Neb IH ONE ×2 (22:12→22:24)
[2016-10-27 22:28] LABS: Mean Cell Volume 87.5 fl (78-100); Mean Corpuscular Hemoglobin 29.6 pg (26-32); Mean Platelet Volume 10.2 fl (6-9.5); Platelet Count 211 K/mm3 (150-450); Red Blood Count 5.13 M/mm3 (4.1-5.4); Red Cell Distribution Width 14.3 % (11.5-14.0); White Blood Count 12.7 K/mm3 (4.0-10.5)
[2016-10-27] MEDS ORDERED: Sodium Chloride 0.9% 1000 ML 1,000 ML IV STA (22:46)
[2016-10-27 22:56] LABS: ALBUMIN 3.7 g/dL (3.4-5.0); ANION GAP 13.6 MEQ/L (5-15); Carbon Dioxide 26.8 mEq/L (21-32); Potassium 4.1 mEq/L (3.5-5.1); Total Protein 6.5 gm/dL (6.4-8.2)
[2016-10-27 23:11] LABS: Eosinophil 3 % (0.00-3.0); Platelet Estimate NORMAL (NORMAL); Total Cells Counted 100
[2016-10-28] MEDS ORDERED: PROVENTIL 2.5 MG/3 ML NEB IH PRN (01:11)
[2016-10-28] MEDS ORDERED: PROVENTIL 2.5 MG/3 ML NEB IH ONE (06:46)
[2016-10-28] MEDS: PROVENTIL 2.5 MG/3 ML NEB IH SCH (06:48)
[2016-10-28 07:40] LABS: BASOPHIL % 0.2 % (0.0-0.4); Eosinophil % 0.2 % (0.00-5.0); Granulocytes % 86.2 % (36.0-66.0); Lymphocytes % 12.5 % (24.0-44.0); Mean Cell Volume 88.1 fl (78-100); Mean Corpuscular Hemoglobin 29.8 pg (26-32); Mean Platelet Volume 10.2 fl (6-9.5); Monocytes % 0.9 % (0.0-12.0); Platelet Count 168 K/mm3 (150-450); Red Blood Count 4.87 M/mm3 (4.1-5.4); Red Cell Distribution Width 14.1 % (11.5-14.0); White Blood Count 6.6 K/mm3 (4.0-10.5)
--- NOTE | 2016-10-28 08:39 | XRAY ---
Indication: Short of breath. Atrial fibrillation. Comparison: August 31, 2016. PA/lateral chest remains clear. Heart is not enlarged. Vascularity normal. Bony thorax intact again with mild osteopenia and degenerative changes. Impression: Stable nonacute chest.
[2016-10-28] MEDS: THEO-DUR 200 MG PO SCH ×3 (08:43→22:15)
[2016-10-28] MEDS: NovoLOG Insulin SQ SCH ×3 (08:43→17:16)
[2016-10-28] MEDS: Ranexa 500 MG PO SCH (08:43)
[2016-10-28] MEDS: PLAVIX 75 MG Tablet PO SCH (08:44)
[2016-10-28] MEDS: Accupril 10MG Tablet PO SCH (08:44)
[2016-10-28] MEDS: ceLEXa 20 MG PO SCH (08:44)
[2016-10-28] MEDS: ECOTRIN 81 MG PO SCH (08:44)
[2016-10-28] MEDS: Protonix 40MG Tablet PO SCH (08:44)
[2016-10-28] MEDS: Vitamin E 400 UNIT SOFTGEL PO SCH (08:44)
[2016-10-28] MEDS: Coreg 6.25 MG PO SCH (08:44)
[2016-10-28] MEDS: VITAMIN B-12 100 MCG PO SCH (08:44)
[2016-10-28] MEDS: Vitamin C 500 MG PO SCH (08:44)
[2016-10-28] MEDS: NovoLOG Insulin SQ PRN ×4 (08:45→22:15)
[2016-10-28 09:46] LABS: ALBUMIN 3.5 g/dL (3.4-5.0); ANION GAP 11.8 MEQ/L (5-15); BILIRUBIN,TOTAL 0.7 mg/dL (0.2-1.0); Carbon Dioxide 26.6 mEq/L (21-32); Potassium 4.1 mEq/L (3.5-5.1); Total Protein 6.3 gm/dL (6.4-8.2)
[2016-10-28] MEDS ORDERED: NON-FORMULARY ITEM (Citalopram Hydrobromide [Citalopram Hbr] 40 MG) PO SCH (10:00)
[2016-10-28] MEDS ORDERED: [UNRECOGNIZED DRUG - OTHER] PO SCH (10:00)
[2016-10-28] MEDS ORDERED: NON-FORMULARY ITEM (Omeprazole [Omeprazole] 40 MG) PO SCH (10:00)
[2016-10-28] MEDS ORDERED: INSULIN LISPRO SQ SCH (11:30)
[2016-10-28] MEDS: Nitrostat 0.4 MG Tablet SL PRN ×3 (13:55→14:09)
[2016-10-28] MEDS: TYLENOL 325 MG PO PRN (14:45)
--- NOTE | 2016-10-28 19:51 | PCM.HP ---
History of Present Illness - Chief Complaint Chief Complaint: Shortness of Breath and chest pain for 1-2 days History of Present Illness: is a 70 year old female.complaining of a rapid heart rate, chest pain , and cough that began about 4 hours ago. She is slightly short of breath as well. She has a past medical history of COPD, hypertension, diabetes, and congestive heart failure. Timing/Duration: hour(s) (4) Activities at Onset: none Severity of Dyspnea-Max: mild Severity of Dyspnea-Current: mild Possible Cause: occasional episodes Modifying Factors: Improves With: coughing, exertion Associated Symptoms: cough, wheezing, heart racing, c/o substernal chest heaviness - Review of Systems Constitutional: No Fever, No Chills Eyes: No Symptoms Ears, Nose, & Throat: No Symptoms, No Painful Swallowing Respiratory: Orthopnea, Short Of Breath, No Cough Cardiac: Chest Pain, Palpitations, Orthopnea, No Edema, No Syncope Abdominal/Gastrointestinal: No Abdominal Pain, No Nausea, No Vomiting, No Diarrhea Genitourinary Symptoms: No Dysuria Musculoskeletal: No Back Pain, No Neck Pain Skin: No Rash Neurological: No Dizziness, No Focal Weakness, No Sensory Changes Psychological: No Symptoms Endocrine: No Symptoms Hematologic/Lymphatic: No Symptoms Immunological/Allergic: No Symptoms Medications & Allergies Home Medications: Home Medication List Albuterol Sulfate 0.63 mg IH TID PRN 07/18/12 [History Confirmed 10/28/16] Ascorbic Acid 500 mg [Vitamin C 500 MG] 500 mg PO DAILY 07/18/12 [History Confirmed 10/28/16] Aspirin [Aspir 81] 81 mg PO DAILY 07/18/12 [History Confirmed 10/28/16] Carvedilol 6.25 mg [Coreg 6.25 MG] 6.25 mg PO DAILY 07/18/12 [History Confirmed 10/28/16] Clopidogrel Bisulfate 75 mg [PLAVIX 75 MG Tablet] 75 mg PO DAILY 07/18/12 [History Confirmed 10/28/16] Cyanocobalamin (Vitamin B-12) [Vitamin B-12] 100 mcg PO DAILY 07/18/12 [History Confirmed 10/28/16] Insulin Glargine,Hum.rec.anlog [Lantus] 20 unit SQ HS 07/18/12 [History Confirmed 10/28/16] Quinapril HCl 10 mg [Accupril 10MG Tablet] 20 mg PO DAILY 07/18/12 [History Confirmed 10/28/16] Theophylline Anhydrous 200 mg* [Arik-Dur 200 mg] 200 mg PO TID 07/18/12 [ History Confirmed 10/28/16] Vitamin E Acid Succinate [Vitamin E] 200 unit PO DAILY 07/18/12 [History Confirmed 10/28/16] Omeprazole 40 mg PO DAILY 07/19/12 [History Confirmed 10/28/16] Insulin Lispro [Humalog] 23 units SQ AC 01/18/16 [History Confirmed 10/28/16] Citalopram Hydrobromide [Citalopram HBr] 40 mg PO DAILY 10/28/16 [History Confirmed 10/28/16] Ranolazine 500 MG [Ranexa 500 MG] 1 tab PO DAILY 10/28/16 [History Confirmed 10/28/16] Simvastatin 40 mg [Zocor 40 mg] 80 mg PO HS 10/28/16 [History Confirmed 10/28/16 ] Allergies/Adverse Reactions: Allergies Allergy/AdvReac Type Severity Reaction Status Date / Time codeine [Codeine] Allergy Severe Verified 10/27/16 21:48 Iodinated Contrast Media - Allergy Severe Verified 10/27/16 21:48 Oral and [IV Dye, Iodine Containing Contrast ] levofloxacin [From Levaquin] Allergy Severe Verified 10/27/16 21:48 oxytetracycline Allergy Severe Verified 10/27/16 21:48 [From Terramycin] oxytetracycline HCl Allergy Severe Verified 10/27/16 21:48 [From Terramycin] Penicillins Allergy Severe Verified 10/27/16 21:48 Sulfa (Sulfonamide Allergy Severe Verified 10/27/16 21:48 Antibiotics) [Sulfa(Sulfonamide Antibiotics)] iodine Allergy Unknown Verified 10/27/16 21:48 - Past Medical History Past Medical History: Yes Neurological History: No Pertinent History ENT History: Cataracts Cardiac History: Hypertension, Myocardial Infarction ([place]) Respiratory History: COPD Endocrine Medical History: Diabetes Type II Musculoskelatal History: Arthritis GI Medical History: Cirrhosis, GERD History: No Pertinent History Pyscho-Social History: Depression Reproductive Disorders: No Pertinent History Comment: CHRONIC BACK PAIN, VENITA KNEE PAIN - Female History Hx Last Menstrual Period: HYST Are you now?: No - Past Surgical History Past Surgical History: Yes Neuro Surgical History: No Pertinent History Cardiac History: Cardiac Catheterization Respiratory Surgery: No Pertinent History GI Surgical History: Appendectomy, Cholecystectomy Genitourinary Surgical Hx: No Pertinent History Musculskeletal Surgical Hx: Other Female Surgical History: Hysterectomy Other Surgical History: rectal surgery, back surgery - Social History Smoking Status: Former smoker Exposure to second hand smoke: No Alcohol: None Drug Use: none - Physical Exam Vital Signs: Vital Signs - 24 hr Temp Pulse Resp BP BP Pulse Ox 10/28/16 16:00 98.1 F 73 20 116/57 96 10/28/16 14:09 78 108/59 10/28/16 14:02 76 109/58 10/28/16 13:55 76 123/57 10/28/16 12:00 98.8 F 68 20 113/55 97 10/28/16 08:00 97.6 F 74 20 134/68 96 10/28/16 06:49 67 20 95 10/28/16 04:00 98.1 F 74 22 130/62 95 10/28/16 01:05 70 20 94 L 10/28/16 00:43 98.7 F 70 20 118/54 96 Oxygen-Last 24 hours O2 Percentage 2 Liters = 28% O2 Percentage 2 Liters = 28% O2 Percentage 2 Liters = 28% O2 Percentage 2 Liters = 28% O2 Percentage 2 Liters = 28% General Appearance: no apparent distress, alert Neurologic Exam: alert, oriented x 3, cooperative, normal mood/affect, nml cerebellar function, nml station & gait, sensation nml, No motor deficits Eye Exam: PERRL/EOMI, eyes nml inspection Ears, Nose, Throat Exam: normal ENT inspection, TMs normal, pharynx normal, moist mucous membranes Neck Exam: normal inspection, non-tender, supple, full range of motion Respiratory Exam: normal breath sounds, lungs clear, No respiratory distress Cardiovascular Exam: regular rate/rhythm, normal heart sounds, normal peripheral pulses Gastrointestinal/Abdomen Exam: soft, normal bowel sounds, No tenderness, No mass Back Exam: normal inspection, normal range of motion, No CVA tenderness, No vertebral tenderness Extremity Exam: normal inspection, normal range of motion, pelvis stable Skin Exam: normal color, warm, dry, No rash Lymphatic Exam: No adenopathy Results - Labs Lab/Micro Results: Accuchecks Date 10/28/16 Date 10/28/16 Date 10/28/16 Time 16:30 Time 11:30 Time 07:30 Accucheck Value: 257 Accucheck Value: 381 Accucheck Value: 304 Lab Results-Last 24 Hours 10/28/16 10/28/16 10/28/16 Range/Units 01:30 04:15 07:23 WBC (4.0-10.5) K/mm3 RBC (4.1-5.4) M/mm3 Hgb (12.0-16.0) gm/dl Hct (35-47) % MCV (78-100) fl MCH (26-32) pg MCHC (32-36) g/dl RDW (11.5-14.0) % Plt Count (150-450) K/mm3 MPV (6-9.5) fl Gran % (36.0-66.0) % Lymphocytes % (24.0-44.0) % Monocytes % (0.0-12.0) % Eosinophils % (0.00-5.0) % Basophils % (0.0-0.4) % Basophils # (0-0.4) D-Dimer (0.00-0.49) mg/L Sodium (136-145) mEq/L Potassium (3.5-5.1) mEq/L Chloride (98-107) mEq/L Carbon Dioxide (21-32) mEq/L Anion Gap (5-15) MEQ/L BUN (9-20) mg/dL Creatinine (0.55-1.30) mg/dl Estimated GFR ML/MIN Glucose (70-110) MG/DL Calcium (8.5-10.1) mg/dL Total Bilirubin (0.2-1.0) mg/dL AST (15-37) U/L ALT (12-78) U/L Alkaline Phosphatase (46-116) U/L Troponin I < 0.017 0.021 0.020 (0.000-0.056) ng/ml Serum Total Protein (6.4-8.2) gm/dL Albumin (3.4-5.0) g/dL 03/10/28/16 10/28/16 Range/Units 07:23 07:23 10:15 WBC 6.6 (4.0-10.5) K/mm3 RBC 4.87 (4.1-5.4) M/mm3 Hgb 14.5 (12.0-16.0) gm/dl Hct 42.9 (35-47) % MCV 88.1 (78-100) fl MCH 29.8 (26-32) pg MCHC 33.8 (32-36) g/dl RDW 14.1 H (11.5-14.0) % Plt Count 168 (150-450) K/mm3 MPV 10.2 H (6-9.5) fl Gran % 86.2 H (36.0-66.0) % Lymphocytes % 12.5 L (24.0-44.0) % Monocytes % 0.9 (0.0-12.0) % Eosinophils % 0.2 (0.00-5.0) % Basophils % 0.2 (0.0-0.4) % Basophils # 0.01 (0-0.4) D-Dimer (0.00-0.49) mg/L Sodium 137 (136-145) mEq/L Potassium 4.1 (3.5-5.1) mEq/L Chloride 103 (98-107) mEq/L Carbon Dioxide 26.6 (21-32) mEq/L Anion Gap 11.8 (5-15) MEQ/L BUN 17 (9-20) mg/dL Creatinine 1.12 (0.55-1.30) mg/dl Estimated GFR 51 ML/MIN Glucose 308 H (70-110) MG/DL Calcium 8.8 (8.5-10.1) mg/dL Total Bilirubin 0.7 (0.2-1.0) mg/dL AST 22 (15-37) U/L ALT 21 (12-78) U/L Alkaline Phosphatase 68 (46-116) U/L Troponin I 0.018 (0.000-0.056) ng/ml Serum Total Protein 6.3 L (6.4-8.2) gm/dL Albumin 3.5 (3.4-5.0) g/dL 10/28/16 10/28/16 Range/Units 14:00 14:00 WBC (4.0-10.5) K/mm3 RBC (4.1-5.4) M/mm3 Hgb (12.0-16.0) gm/dl Hct (35-47) % MCV (78-100) fl MCH (26-32) pg MCHC (32-36) g/dl RDW (11.5-14.0) % Plt Count (150-450) K/mm3 MPV (6-9.5) fl Gran % (36.0-66.0) % Lymphocytes % (24.0-44.0) % Monocytes % (0.0-12.0) % Eosinophils % (0.00-5.0) % Basophils % (0.0-0.4) % Basophils # (0-0.4) D-Dimer 0.287 (0.00-0.49) mg/L Sodium (136-145) mEq/L Potassium (3.5-5.1) mEq/L Chloride (98-107) mEq/L Carbon Dioxide (21-32) mEq/L Anion Gap (5-15) MEQ/L BUN (9-20) mg/dL Creatinine (0.55-1.30) mg/dl Estimated GFR ML/MIN Glucose (70-110) MG/DL Calcium (8.5-10.1) mg/dL Total Bilirubin (0.2-1.0) mg/dL AST (15-37) U/L ALT (12-78) U/L Alkaline Phosphatase (46-116) U/L Troponin I < 0.017 (0.000-0.056) ng/ml Serum Total Protein (6.4-8.2) gm/dL Albumin (3.4-5.0) g/dL Accuchecks Date 10/28/16 Date 10/28/16 Date 10/28/16 Time 16:30 Time 11:30 Time 07:30 Accucheck Value: 257 Accucheck Value: 381 Accucheck Value: 304 - Radiology Impressions Radiology Exams & Impressions: Radiology Procedures Category Date Time Status ECHO W/2D AND DOPPLER [US] Routine Exams 10/28/16 12:54 Taken - Other Procedures and Tests Respiratory Therapy 10/28/16 01:11 Respiratory Nebulizer PRN 10/28/16 10:00 Respiratory Nebulizer DAILY Assessment/Plan (1) Atrial fibrillation with RVR Current Visit: Yes Status: Acute Assessment & Plan: will admit patient. will follow chest pain protocol. Code(s): I48.91 - UNSPECIFIED ATRIAL FIBRILLATION (2) Chest pain Current Visit: Yes Status: Acute Qualifiers: Chest pain type: other chest pain Qualified Code(s): R07.89 - Other chest pain; R07.8 - Other chest pain Code(s): R07.9 - CHEST PAIN, UNSPECIFIED
[2016-10-28] MEDS ORDERED: INSULIN GLARGINE HUM REC ANLOG 20 UNIT SQ SCH (22:00)
[2016-10-28] MEDS ORDERED: NON-FORMULARY ITEM (Simvastatin 40 Mg [Zocor 40 Mg] 80 MG) PO SCH (22:00)
[2016-10-28] MEDS: Lantus Insulin SQ SCH (22:14)
[2016-10-28] MEDS: ZOCOR 20MG PO SCH (22:15)
[2016-10-29] MEDS: Accupril 10MG Tablet PO SCH (08:07)
[2016-10-29] MEDS: Ranexa 500 MG PO SCH (08:07)
[2016-10-29] MEDS: Protonix 40MG Tablet PO SCH (08:08)
[2016-10-29] MEDS: VITAMIN B-12 100 MCG PO SCH (08:08)
[2016-10-29] MEDS: ceLEXa 20 MG PO SCH (08:08)
[2016-10-29] MEDS: ECOTRIN 81 MG PO SCH (08:08)
[2016-10-29] MEDS: THEO-DUR 200 MG PO SCH ×3 (08:08→20:22)
[2016-10-29] MEDS: Coreg 6.25 MG PO SCH (08:08)
[2016-10-29] MEDS: PLAVIX 75 MG Tablet PO SCH (08:08)
[2016-10-29] MEDS: NovoLOG Insulin SQ SCH ×3 (08:09→17:50)
[2016-10-29] MEDS: Vitamin E 400 UNIT SOFTGEL PO SCH (08:09)
[2016-10-29] MEDS: Vitamin C 500 MG PO SCH (08:09)
--- NOTE | 2016-10-29 12:20 | PCM.NOTE ---
Date and Time: 10/29/16 1216 Subjective Assessment: c/o epigastric pain, fever and chills - Review of Systems Constitutional: Fever, Chills, Fatigue Eyes: No Symptoms Ears, Nose, & Throat: No Symptoms Respiratory: No Cough, No Short Of Breath Cardiac: Chest Pain, No Edema, No Syncope Abdominal/Gastrointestinal: No Abdominal Pain, No Nausea, No Vomiting, No Diarrhea Genitourinary Symptoms: No Dysuria Musculoskeletal: No Back Pain, No Neck Pain Skin: No Rash Neurological: No Dizziness, No Focal Weakness, No Sensory Changes Psychological: No Symptoms Endocrine: No Symptoms Hematologic/Lymphatic: No Symptoms Immunological/Allergic: No Symptoms Objective Exam General Appearance: no apparent distress, alert Neurologic Exam: alert, oriented x 3, cooperative, normal mood/affect, nml cerebellar function, sensation nml, No motor deficits Skin Exam: normal color, warm, dry Eye Exam: PERRL, EOMI, eyes nml inspection Ears, Nose, Throat Exam: normal ENT inspection, pharynx normal, moist mucous membranes Neck Exam: normal inspection, non-tender, supple, full range of motion Respiratory Exam: normal breath sounds, lungs clear, No respiratory distress Cardiovascular Exam: regular rate/rhythm, normal heart sounds Gastrointestinal/Abdomen Exam: soft, No tenderness, No mass Extremity Exam: normal inspection, normal range of motion Back Exam: normal inspection, normal range of motion, No CVA tenderness, No vertebral tenderness Pelvic Exam: deferred Rectal Exam: deferred OBJECTIVE DATA Vital Signs: Vital Signs - 24 hr Temp Pulse Resp BP BP Pulse Ox 10/29/16 11:45 98.2 F 60 18 130/62 95 10/29/16 07:28 97.9 F 64 19 157/73 93 L 10/29/16 06:39 66 18 94 L 10/29/16 04:00 97.9 F 67 18 152/70 96 10/29/16 00:45 98.1 F 66 20 170/79 95 10/29/16 00:00 98.5 F 62 12 96 10/28/16 21:30 98.5 F 62 12 134/62 96 10/28/16 19:51 72 20 97 10/28/16 16:00 98.1 F 73 20 116/57 96 10/28/16 14:09 78 108/59 10/28/16 14:02 76 109/58 10/28/16 13:55 76 123/57 Oxygen-Last 24 hours O2 Percentage 2 Liters = 28% Pain Assessment - Last Documented Pain Intensity 3 Pain Scale Used 0-10 Pain Scale Intake and Output: Intake & Output 10/27/16 10/28/16 10/29/16 10/30/16 11:59 11:59 11:59 11:59 Intake Total 887 2423 Output Total 1550 0170 Balance -663 -1127 Weight 82.372 kg Lab Results: Accuchecks Date 10/28/16 Date 10/28/16 Time 22:00 Time 16:30 Accucheck Value: 114 Accucheck Value: 214 Accucheck Value: 257 Lab Results-Last 24 Hours 10/28/16 10/28/16 Range/Units 14:00 14:00 D-Dimer 0.287 (0.00-0.49) mg/L Troponin I < 0.017 (0.000-0.056) ng/ml Radiology Exams: Radiology Procedures Category Date Time Status ECHO W/2D AND DOPPLER [US] Routine Exams 10/28/16 12:54 Taken Assessment/Plan (1) Atrial fibrillation with RVR Current Visit: Yes Status: Resolved Code(s): I48.91 - UNSPECIFIED ATRIAL FIBRILLATION (2) Chest pain Current Visit: Yes Status: Resolved Qualifiers: Chest pain type: other chest pain Qualified Code(s): R07.89 - Other chest pain; R07.8 - Other chest pain Code(s): R07.9 - CHEST PAIN, UNSPECIFIED (3) Chills (without fever) Current Visit: Yes Status: Acute (4) Type 2 diabetes mellitus Current Visit: Yes Status: Acute Qualifiers: Diabetes mellitus complication status: with hyperglycemia 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
[2016-10-29] MEDS ORDERED: Zofran 4 MG/2 ML VIAL IV PRN (12:22)
[2016-10-29] MEDS: Sodium Chloride 0.9% 1000 ML 1,000 ML IV SCH (14:35)
--- NOTE | 2016-10-29 14:47 | ECHO ---
DATE OF PROCEDURE: 10/28/2016 CLINICAL INFORMATION: Atrial fibrillation with rapid ventricular response. The M-mode 2D, and Doppler echocardiogram including color flow Doppler shows normal contractility of the left ventricle with an ejection fraction calculated at 62%. There is no thrombus noted. The septal wall is thickened at 1.8 cm. The left ventricular posterior wall is 1.1 cm. The right ventricle appears to be normal in size and function. The left atrium is normal with a dimension of 3.2 cm. The right atrium is normal. The interatrial septum is intact. The mitral valve appears to be normal. The aortic valve opens well. There is mild tricuspid regurgitation with a right ventricular systolic pressure being calculated at 29 mm of Mercury. The pulmonic valve is not well visualized. The aortic root is normal with a dimension of 3.2 cm. There is no pericardial effusion present. IMPRESSION: 1) MILD TRICUSPID REGURGITATION WITH A NORMAL RIGHT VENTRICULAR SYSTOLIC PRESSURE. 2) NORMAL CONTRACTILITY OF THE LEFT VENTRICLE WITH EVIDENCE OF IMPAIRED LEFT VENTRICULAR RELAXATION. 3) THERE IS MODERATE ASYMMETRIC LEFT VENTRICULAR HYPERTROPHY. 4) THERE IS EVIDENCE OF IMPAIRED LEFT VENTRICLE RELAXATION. 5) THE MITRAL VALVE E TO A RATIO IS 0.8.
[2016-10-29] MEDS: TYLENOL 325 MG PO PRN (15:52)
[2016-10-29] MEDS: PROVENTIL 2.5 MG/3 ML NEB IH SCH (20:01)
[2016-10-29] MEDS: Lantus Insulin SQ SCH (20:22)
[2016-10-29] MEDS: ZOCOR 20MG PO SCH (20:22)
[2016-10-29] MEDS: NovoLOG Insulin SQ PRN (22:14)
[2016-10-30] MEDS: Sodium Chloride 0.9% 1000 ML 1,000 ML IV SCH (04:20)
[2016-10-30 05:35] LABS: Mean Cell Volume 88.3 fl (78-100); Mean Corpuscular Hemoglobin 29.7 pg (26-32); Platelet Count 184 K/mm3 (150-450); Red Blood Count 4.78 M/mm3 (4.1-5.4); Red Cell Distribution Width 14.3 % (11.5-14.0); White Blood Count 10.1 K/mm3 (4.0-10.5)
[2016-10-30] MEDS: PROVENTIL 2.5 MG/3 ML NEB IH SCH (05:38)
[2016-10-30 06:33] LABS: Eosinophil 9 % (0.00-3.0); Platelet Estimate NORMAL (NORMAL); Total Cells Counted 100
[2016-10-30] MEDS: NovoLOG Insulin SQ SCH (07:33)
[2016-10-30 09:06] LABS: ALBUMIN 3.4 g/dL (3.4-5.0); ALKALINE PHOSPHATASE 51 U/L (46-116); ANION GAP 14.9 MEQ/L (5-15); BILIRUBIN,TOTAL 0.6 mg/dL (0.2-1.0); BLOOD UREA NITROGEN 11 mg/dL (9-20); CHLORIDE 107 mEq/L (98-107); Carbon Dioxide 29.2 mEq/L (21-32); Glucose 107 MG/DL (70-110); Potassium 3.9 mEq/L (3.5-5.1); SGOT/AST 20 U/L (15-37); SGPT/ALT 18 U/L (12-78); SODIUM 147 mEq/L (136-145); Total Protein 6.2 gm/dL (6.4-8.2)
[2016-10-30] MEDS: Ranexa 500 MG PO SCH (09:58)
[2016-10-30] MEDS: Coreg 6.25 MG PO SCH (09:58)
[2016-10-30] MEDS: Accupril 10MG Tablet PO SCH (09:58)
[2016-10-30] MEDS: THEO-DUR 200 MG PO SCH (09:59)
[2016-10-30] MEDS: ceLEXa 20 MG PO SCH (09:59)
[2016-10-30] MEDS: ECOTRIN 81 MG PO SCH (09:59)
[2016-10-30] MEDS: Protonix 40MG Tablet PO SCH (09:59)
[2016-10-30] MEDS: PLAVIX 75 MG Tablet PO SCH (10:00)
[2016-10-30] MEDS: Vitamin E 400 UNIT SOFTGEL PO SCH (10:00)
[2016-10-30] MEDS: VITAMIN B-12 100 MCG PO SCH (10:00)
[2016-10-30] MEDS: Vitamin C 500 MG PO SCH (10:00)
[2016-10-30] MEDS: TYLENOL 325 MG PO PRN (10:04)
[2016-10-30 11:33] VITALS: BP 129/76; PULSE 68; O2SAT 93
--- NOTE | 2016-10-30 17:26 | PCM.DS ---
Discharge Summary Date of Admission: 10/28/16 00:05 Admitting Physician: RENETTA EPSTEIN Primary Care Provider: RENETTA EPSTEIN Allergies Allergies codeine [Codeine] Allergy (Severe, Verified 10/27/16 21:48) Iodinated Contrast Media - Oral and [IV Dye, Iodine Containing Contrast ] Allergy (Severe, Verified 10/27/16 21:48) levofloxacin [From Levaquin] Allergy (Severe, Verified 10/27/16 21:48) oxytetracycline [From Terramycin] Allergy (Severe, Verified 10/27/16 21:48) oxytetracycline HCl [From Terramycin] Allergy (Severe, Verified 10/27/16 21:48) Penicillins Allergy (Severe, Verified 10/27/16 21:48) Sulfa (Sulfonamide Antibiotics) [Sulfa(Sulfonamide Antibiotics)] Allergy (Severe , Verified 10/27/16 21:48) iodine Allergy (Unknown, Verified 10/27/16 21:48) Hospital Summary - Hospital Course Hospital Course: Last Vital Signs Temp 98.7 F 10/30/16 11:32 Pulse 68 10/30/16 11:32 Resp 16 10/30/16 11:32 BP 129/76 10/30/16 11:32 Pulse Ox 93 L 10/30/16 11:32 Allergies codeine [Codeine] Allergy (Severe, Verified 10/27/16 21:48) Iodinated Contrast Media - Oral and [IV Dye, Iodine Containing Contrast ] Allergy (Severe, Verified 10/27/16 21:48) levofloxacin [From Levaquin] Allergy (Severe, Verified 10/27/16 21:48) oxytetracycline [From Terramycin] Allergy (Severe, Verified 10/27/16 21:48) oxytetracycline HCl [From Terramycin] Allergy (Severe, Verified 10/27/16 21:48) Penicillins Allergy (Severe, Verified 10/27/16 21:48) Sulfa (Sulfonamide Antibiotics) [Sulfa(Sulfonamide Antibiotics)] Allergy (Severe , Verified 10/27/16 21:48) iodine Allergy (Unknown, Verified 10/27/16 21:48) Intake & Output 10/30/16 10/31/16 11:59 11:59 Intake Total 2775 660 Output Total 6100 Balance -8646 660 Orders 10/30/16 11:51 Discharge Routine Discharge/Telephone Order Routine Lab Tests 10/30/16 10/30/16 05:10 05:10 WBC 10.1 RBC 4.78 Hgb 14.2 Hct 42.2 MCV 88.3 MCH 29.7 MCHC 33.6 RDW 14.3 H Plt Count 184 MPV 10.0 H Segmented Neutrophils 41 Lymphocytes (Manual) 45 H Monocytes (Manual) 5 Eosinophils (Manual) 9 H Differential Comment NORMAL Platelet Estimate NORMAL Sodium 147 H Potassium 3.9 Chloride 107 Carbon Dioxide 29.2 Anion Gap 14.9 BUN 11 Creatinine 0.87 Estimated GFR > 60 Glucose 107 Calcium 8.9 Total Bilirubin 0.6 AST 20 ALT 18 Alkaline Phosphatase 51 Serum Total Protein 6.2 L Albumin 3.4 - Vitals & Intake/Output Vital Signs: Vital Signs Temperature 98.7 F 10/30/16 11:32 Pulse Rate 68 10/30/16 11:32 Respiratory Rate 16 10/30/16 11:32 Blood Pressure 129/76 10/30/16 11:32 O2 Sat by Pulse Oximetry 93 L 10/30/16 11:32 Oxygen-Last Documented O2 Percentage 2 Liters = 28% Intake & Output: Intake & Output 10/28/16 10/29/16 10/30/16 10/31/16 11:59 11:59 11:59 11:59 Intake Total 887 5773 2775 660 Output Total 1550 6520 0791 [facility] -1127 -3325 660 Weight 82.372 kg - Lab Result Diagrams: 10/30/16 05:10 10/30/16 05:10 Lab Results-Last 24 Hrs: Accuchecks Date 10/30/16 Date 10/30/16 Date 10/29/16 Time 11:30 Time 07:30 Time 22:00 Accucheck Value: 174 Accucheck Value: 112 Accucheck Value: 239 Lab Results-Last 24 Hours 10/30/16 10/30/16 Range/Units 05:10 05:10 WBC 10.1 (4.0-10.5) K/mm3 RBC 4.78 (4.1-5.4) M/mm3 Hgb 14.2 (12.0-16.0) gm/dl Hct 42.2 (35-47) % MCV 88.3 (78-100) fl MCH 29.7 (26-32) pg MCHC 33.6 (32-36) g/dl RDW 14.3 H (11.5-14.0) % Plt Count 184 (150-450) K/mm3 MPV 10.0 H (6-9.5) fl Segmented Neutrophils 41 (36.0-66.0) % Lymphocytes (Manual) 45 H (24-44) % Monocytes (Manual) 5 (0.0-12.0) % Eosinophils (Manual) 9 H (0.00-3.0) % Differential Comment NORMAL Platelet Estimate NORMAL (NORMAL) Sodium 147 H (136-145) mEq/L Potassium 3.9 (3.5-5.1) mEq/L Chloride 107 (98-107) mEq/L Carbon Dioxide 29.2 (21-32) mEq/L Anion Gap 14.9 (5-15) MEQ/L BUN 11 (9-20) mg/dL Creatinine 0.87 (0.55-1.30) mg/dl Estimated GFR > 60 ML/MIN Glucose 107 (70-110) MG/DL Calcium 8.9 (8.5-10.1) mg/dL Total Bilirubin 0.6 (0.2-1.0) mg/dL AST 20 (15-37) U/L ALT 18 (12-78) U/L Alkaline Phosphatase 51 (46-116) U/L Serum Total Protein 6.2 L (6.4-8.2) gm/dL Albumin 3.4 (3.4-5.0) g/dL Micro Results-Entire Visit: Accuchecks Date 10/30/16 Date 10/30/16 Date 10/29/16 Time 11:30 Time 07:30 Time 22:00 Accucheck Value: 174 Accucheck Value: 112 Accucheck Value: 239 - Radiology Exams Ordered Rad Exams-Entire Visit: Impressions Echocardiogram Ultrasound 10/28/16 12:54 IMPRESSION: 1) MILD TRICUSPID REGURGITATION WITH A NORMAL RIGHT VENTRICULAR SYSTOLIC PRESSURE. 2) NORMAL CONTRACTILITY OF THE LEFT VENTRICLE WITH EVIDENCE OF IMPAIRED LEFT VENTRICULAR RELAXATION. 3) THERE IS MODERATE ASYMMETRIC LEFT VENTRICULAR HYPERTROPHY. 4) THERE IS EVIDENCE OF IMPAIRED LEFT VENTRICLE RELAXATION. 5) THE MITRAL VALVE E TO A RATIO IS 0.8. - Procedures and Test Procedures and Tests throughout Hospitalization: Therapy Orders & Screens 10/28/16 01:11 Respiratory Nebulizer PRN Comment: ALBUTEROL Q4PRN FOR SOB/WHEEZING Diagnosis: Shortness of Breath 10/28/16 01:12 Respiratory Therapy Consult ROUTINE Comment: Reason For Exam: Diagnosis: Shortness of Breath 10/28/16 10:00 Respiratory Nebulizer DAILY Comment: ALBUTEROL DAILY IN A.M. Diagnosis: Shortness of Breath 10/28/16 13:47 EKG STAT Comment: Diagnosis: Shortness of Breath Discharge Exam General Appearance: no apparent distress, alert Neurologic Exam: alert, oriented x 3, cooperative, normal mood/affect, nml cerebellar function, sensation nml, No motor deficits Skin Exam: normal color, warm, dry Eye Exam: PERRL, EOMI, eyes nml inspection Ears, Nose, Throat Exam: normal ENT inspection, pharynx normal, moist mucous membranes Neck Exam: normal inspection, non-tender, supple, full range of motion Respiratory Exam: normal breath sounds, lungs clear, No respiratory distress Cardiovascular Exam: regular rate/rhythm, normal heart sounds Gastrointestinal/Abdomen Exam: soft, No tenderness, No mass Extremity Exam: normal inspection, normal range of motion Back Exam: normal inspection, normal range of motion, No CVA tenderness, No vertebral tenderness Pelvic Exam: deferred Rectal Exam: deferred Final Diagnosis/Problem List - Final Discharge Diagnosis/Problem (1) Chills (without fever) Status: Resolved (2) Atrial fibrillation with RVR Status: Chronic Assessment & Plan: Chief Complaint Diagnosis Shortness of Breath and chest pain for 1-2 days Allergies Allergy/AdvReac Type Severity Reaction Status Date / Time codeine [Codeine] Allergy Severe Verified 10/27/16 21:48 Iodinated Contrast Media - Allergy Severe Verified 10/27/16 21:48 Oral and [IV Dye, Iodine Containing Contrast ] levofloxacin [From Levaquin] Allergy Severe Verified 10/27/16 21:48 oxytetracycline Allergy Severe Verified 10/27/16 21:48 [From Terramycin] oxytetracycline HCl Allergy Severe Verified 10/27/16 21:48 [From Terramycin] Penicillins Allergy Severe Verified 10/27/16 21:48 Sulfa (Sulfonamide Allergy Severe Verified 10/27/16 21:48 Antibiotics) [Sulfa(Sulfonamide Antibiotics)] iodine Allergy Unknown Verified 10/27/16 21:48 Vital Signs (Last 24 hours) Temp Pulse Resp BP Pulse Ox 10/30/16 11:32 98.7 F 68 16 129/76 93 L 10/30/16 07:34 97.7 F 74 20 145/73 94 L 10/30/16 05:39 59 L 20 94 L 10/30/16 04:00 98.0 F 71 20 145/70 94 L 10/29/16 23:40 98.0 F 67 20 159/75 94 L 10/29/16 20:00 98.4 F 60 18 129/60 94 L Home Medications Medication Instructions Recorded Confirmed Last Taken Type Citalopram Hydrobromide 40 mg PO DAILY 10/28/16 10/28/16 10/27/16 History [Citalopram HBr] Ranolazine 500 MG [Ranexa 500 1 tab PO DAILY 10/28/16 10/28/16 10/27/16 History MG] Simvastatin 40 mg [Zocor 40 mg] 80 mg PO HS 10/28/16 10/28/16 10/27/16 History Current Medications Discontinued Medications Generic Name Dose Route Start Last Admin Trade Name Freq PRN Reason Stop Dose Admin Acetaminophen 650 mg 10/28/16 14:29 10/30/16 10:04 Tylenol 325 Mg PO 11/27/16 14:28 650 mg Q4H PRN PRN Administration PAIN AND/OR FEVER Albuterol Sulfate 2.5 mg 10/28/16 10:00 10/30/16 05:38 Proventil 2.5 Mg/3 Ml Neb IH 11/27/16 09:59 2.5 mg DAILY SONAL Administration Albuterol Sulfate 2.5 mg 10/28/16 01:11 10/29/16 06:37 Proventil 2.5 Mg/3 Ml Neb IH 11/27/16 01:10 2.5 mg Q4H PRN PRN Administration SHORTNESS OF BREATH/WHEEZING Albuterol Sulfate Confirm 10/28/16 06:46 Proventil 2.5 Mg/3 Ml Neb Administered 10/28/16 06:47 Dose 2.5 mg IH .STK-MED ONE Albuterol/Ipratropium 3 ml 10/27/16 22:12 10/27/16 22:32 Duoneb 0.5-3 Mg/3 Ml Neb IH 10/27/16 22:13 3 ml STAT ONE Administration Albuterol/Ipratropium Confirm 10/27/16 22:24 Duoneb 0.5-3 Mg/3 Ml Neb Administered 10/27/16 22:25 Dose 3 ml IH .STK-MED ONE Ascorbic Acid 500 mg 10/28/16 10:00 10/30/16 10:00 Vitamin C 500 Mg PO 11/27/16 09:59 500 mg DAILY SONAL Administration Aspirin 81 mg 10/28/16 10:00 10/30/16 09:59 Ecotrin 81 Mg PO 11/27/16 09:59 81 mg DAILY SONAL Administration Carvedilol 6.25 mg 10/28/16 10:00 10/30/16 09:58 Coreg 6.25 Mg PO 11/27/16 09:59 6.25 mg DAILY SONAL Administration Citalopram Hydrobromide 40 mg 10/28/16 10:00 10/30/16 09:59 Celexa 20 Mg PO 11/27/16 09:59 40 mg DAILY SONAL Administration Clopidogrel Bisulfate 75 mg 10/28/16 10:00 10/30/16 10:00 Plavix 75 Mg Tablet PO 11/27/16 09:59 75 mg DAILY SONAL Administration Cyanocobalamin 100 mcg 10/28/16 10:00 10/30/16 10:00 Vitamin B-12 100 Mcg PO 11/27/16 09:59 100 mcg DAILY SONAL Administration Diltiazem HCl Confirm 10/27/16 22:11 Cardizem Iv 50 Mg/10 Ml Administered 10/27/16 22:12 Dose 50 mg IV .STK-MED ONE Diltiazem HCl 20 mg 10/27/16 22:13 10/27/16 22:21 Cardizem Iv 50 Mg/10 Ml IV 10/27/16 22:14 20 mg STAT ONE Administration Sodium Chloride Confirm 10/27/16 22:10 Sodium Chloride 0.9% 1000 Ml Administered 10/27/16 22:11 Dose 1,000 mls @ ud .ROUTE .STK-MED ONE Sodium Chloride 1,000 mls @ 30 mls/hr 10/27/16 22:46 10/27/16 22:49 Sodium Chloride 0.9% 1000 Ml IV 10/28/16 22:45 30 mls/hr .Q24H STA Administration Sodium Chloride 1,000 mls @ 70 mls/hr 10/29/16 12:30 10/30/16 04:20 Sodium Chloride 0.9% 1000 Ml IV 11/28/16 12:29 70 mls/hr .[id number] SONAL Administration Insulin Aspart 0 unit 10/28/16 07:46 10/29/16 22:14 Novolog Insulin SQ 11/27/16 07:45 2 unit UD PRN Administration HYPERGLYCEMIA Insulin Aspart 23 unit 10/28/16 08:00 10/30/16 07:33 Novolog Insulin SQ 11/27/16 07:59 23 unit AC SONAL Administration Insulin Glargine 20 unit 10/28/16 22:00 10/29/16 20:22 Lantus Insulin SQ 11/27/16 21:59 20 unit HS SONAL Administration Methylprednisolone Sodium Succinate Confirm 10/27/16 22:10 Solu-Medrol 125 Mg Administered 10/27/16 22:11 Dose 125 mg .ROUTE .STK-MED ONE Methylprednisolone Sodium Succinate 125 mg 10/27/16 22:12 10/27/16 22:21 Solu-Medrol 125 Mg IV 10/27/16 22:13 125 mg STAT ONE Administration Nitroglycerin 0.4 mg 10/28/16 13:49 10/28/16 14:09 Nitrostat 0.4 Mg Tablet SL 11/27/16 13:48 0.4 mg Q5MIN PRN MR X 3 PRN Administration CHEST PAIN Ondansetron HCl 4 mg 10/29/16 12:22 Zofran 4 Mg/2 Ml Vial IV 11/28/16 12:21 Q6H PRN PRN NAUSEA/VOMITING Pantoprazole Sodium 40 mg 10/28/16 10:00 10/30/16 09:59 Protonix 40mg Tablet PO 11/27/16 09:59 40 mg DAILY SONAL Administration Quinapril HCl 20 mg 10/28/16 10:00 10/30/16 09:58 Accupril 10mg Tablet PO 11/27/16 09:59 20 mg DAILY SONAL Administration Ranolazine 500 mg 10/28/16 10:00 10/30/16 09:58 Ranexa 500 Mg PO 11/27/16 09:59 500 mg DAILY SONAL Administration Simvastatin 80 mg 10/28/16 22:00 10/29/16 20:22 Zocor 20mg PO 11/27/16 21:59 80 mg HS SONAL Administration Theophylline 200 mg 10/28/16 10:00 10/30/16 09:59 Arik-Dur 200 Mg PO 11/27/16 09:59 200 mg TID SONAL Administration Vitamin E 400 u 10/28/16 10:00 10/30/16 10:00 Vitamin E 400 Unit Softgel PO 11/27/16 09:59 400 u DAILY SONAL Administration Intake & Output (Last 24 hours) 10/28/16 10/29/16 10/30/16 10/31/16 11:59 11:59 11:59 11:59 Intake Total 887 2423 2775 660 Output Total 1550 4060 3646 [facility] -6248 -3401 660 Weight 82.372 kg Laboratory Results (Last 24 hours) 10/30/16 10/30/16 05:10 05:10 WBC 10.1 RBC 4.78 Hgb 14.2 Hct 42.2 MCV 88.3 MCH 29.7 MCHC 33.6 RDW 14.3 H Plt Count 184 MPV 10.0 H Segmented Neutrophils 41 Lymphocytes (Manual) 45 H Monocytes (Manual) 5 Eosinophils (Manual) 9 H Differential Comment NORMAL Platelet Estimate NORMAL Sodium 147 H Potassium 3.9 Chloride 107 Carbon Dioxide 29.2 Anion Gap 14.9 BUN 11 Creatinine 0.87 Estimated GFR > 60 Glucose 107 Calcium 8.9 Total Bilirubin 0.6 AST 20 ALT 18 Alkaline Phosphatase 51 Serum Total Protein 6.2 L Albumin 3.4 Orders (Last 24 hours) Category Date Time Status Discharge Routine Discharge 10/30/16 11:51 Ordered Discharge/Telephone Order Routine Discharge 10/30/16 11:51 Active CBC W DIFF AM.LAB Lab 10/30/16 05:10 Completed CMP AM.LAB Lab 10/30/16 05:10 Completed Manual Differential NC Routine Lab 10/30/16 05:10 Completed Patient Care Notes (Last 24 hours) 10/30/16 10:00 (created 10/30/16 13:58) Case Management Note by Nydia Valdovinos DISCHARGE PLAN REVIEWED WITH PT. CONTINUES TO DECLINE NEEDS FOR DISCHARGE. INDEPENDENT WITH ALL ADL'S. DISCUSSED WITH PT THAT DR. EPSTEIN WOULD LIKE FOR HER TO BRING IN MEDICATION BOTTLES FOR VERIFICATION OF HOME MEDS AND TO MAKE SURE THAT NO RENEWAL RX'S WOULD BE NEEDED. PT VERBALIZED UNDERSTANDING. STATES,"I HAVE ALL MY MEDICATIONS AT HOME, AND MY CAN NOT BRING THEM IN. " PT REPORTS THAT HE WOULD NOT EVEN KNOW WHERE TO LOOK TO COLLECT ALL HER MEDS TO BRING IN. REPORTS THAT SHE TAKES CARE OF HER MEDICATIONS INDEPENDENTLY. CONTINUES TO DECLINE NEEDS ON DISCHARGE. WILL CONTINUE TO FOLLOW AND ASSESS FOR ALL DC NEEDS. Initialized on 10/30/16 13:58 - END OF NOTE (3) Chest pain Status: Resolved (4) Type 2 diabetes mellitus Status: Chronic - Discharge Discharge Date: 10/30/16 Disposition: Home, Self-Care Condition: Stable Prescriptions: Continue Vitamin E Acid Succinate [Vitamin E] 200 unit PO DAILY Ascorbic Acid 500 mg [Vitamin C 500 MG] 500 mg PO DAILY Cyanocobalamin (Vitamin B-12) [Vitamin B-12] 100 mcg PO DAILY Clopidogrel Bisulfate 75 mg [PLAVIX 75 MG Tablet] 75 mg PO DAILY Albuterol Sulfate 0.63 mg IH TID PRN PRN Reason: Cough Insulin Glargine,Hum.rec.anlog [Lantus] 20 unit SQ HS Carvedilol 6.25 mg [Coreg 6.25 MG] 6.25 mg PO DAILY Theophylline Anhydrous 200 mg* [Arik-Dur 200 mg] 200 mg PO TID Quinapril HCl 10 mg [Accupril 10MG Tablet] 20 mg PO DAILY Aspirin [Aspir 81] 81 mg PO DAILY Omeprazole 40 mg PO DAILY Insulin Lispro [Humalog] 23 units SQ AC Ranolazine 500 MG [Ranexa 500 MG] 1 tab PO DAILY Simvastatin 40 mg [Zocor 40 mg] 80 mg PO HS Citalopram Hydrobromide [Citalopram HBr] 40 mg PO DAILY Instructions: Heart-Healthy Diet, Carbohydrate-Counting Diet, Dehydration -- Adult, Atrial Fibrillation Follow up with: RENETTA EPSTEIN MD [Primary Care Provider] - 11/06/16 3:00 pm ([facility]) Forms: Discharge Instructions
== END 2016-10-30 13:30 | disposition home or self-care (01) ==
LOC: ED 21:37 → MED SURG 10-28 00:05
PROVIDERS: ADMIT General Practice; ATTEND General Practice
DX: I48.91 Unspecified atrial fibrillation (principal); R07.9 Chest pain, unspecified; E11.9 Type 2 diabetes mellitus without complications; Z79.4 Long term (current) use of insulin; I10 Essential (primary) hypertension; K21.9 Gastro-esophageal reflux disease without esophagitis; F32.9 Major depressive disorder, single episode, unspecified; J44.9 Chronic obstructive pulmonary disease, unspecified; Z79.899 Other long term (current) drug therapy; I25.2 Old myocardial infarction
CPT/HCPCS: 36000; 36415; 71020; 80053; 82962; 83880; 84484; 85025; 85379; 87631; 93005; 93041; 93268; 93306; 94640; 94760; 96360; 96361; 96374; 96375; 99285; G0378; J2930; A9270-GY

== ENCOUNTER 2016-11-05 21:48 | Emergency (ER) | payer MEDICARE, SELFPAY ==
[2016-11-05] MEDS ORDERED: Nitrostat 0.4 MG (ED) SL ONE ×2 (21:51→22:05)
[2016-11-05] MEDS ORDERED: BABY ASPIRIN 81 MG CHEW PO ONE (21:51)
--- NOTE | 2016-11-05 21:58 | ERPHSYRPT ---
- History of Present Illness Time Seen by Provider: 11/05/16 21:48 Historian: patient Exam Limitations: no limitations Physician History: ABOUT 45 MINUTES AGO PT WAS AT HOME AND FELT HER HEART RACE, TOOK HER PULSE AND IT WAS 136. PT ALSO C/O CHEST HEAVINESS, COUGH PRODUCTIVE OF CLEAR PHLEGM AND DIAPHORESIS FOR THE PAST 45 MINUTES; DENIES VOMITING, ABDOMINAL PAIN, RASH. Aspirin Treatment Today: 81 mg x 4, provided by ED Allergies/Adverse Reactions: codeine [Codeine] Allergy (Severe, Verified 11/05/16 21:50) Iodinated Contrast Media - Oral and [IV Dye, Iodine Containing Contrast ] Allergy (Severe, Verified 11/05/16 21:50) levofloxacin [From Levaquin] Allergy (Severe, Verified 11/05/16 21:50) oxytetracycline [From Terramycin] Allergy (Severe, Verified 11/05/16 21:50) oxytetracycline HCl [From Terramycin] Allergy (Severe, Verified 11/05/16 21:50) Penicillins Allergy (Severe, Verified 11/05/16 21:50) Sulfa (Sulfonamide Antibiotics) [Sulfa(Sulfonamide Antibiotics)] Allergy (Severe , Verified 11/05/16 21:50) iodine Allergy (Unknown, Verified 11/05/16 21:50) Home Medications: Albuterol Sulfate 0.63 mg IH TID PRN 07/18/12 [History] Ascorbic Acid 500 mg [Vitamin C 500 MG] 500 mg PO DAILY 07/18/12 [History] Aspirin [Aspir 81] 81 mg PO DAILY 07/18/12 [History] Carvedilol 6.25 mg [Coreg 6.25 MG] 6.25 mg PO DAILY 07/18/12 [History] Clopidogrel Bisulfate 75 mg [PLAVIX 75 MG Tablet] 75 mg PO DAILY 07/18/12 [History] Cyanocobalamin (Vitamin B-12) [Vitamin B-12] 100 mcg PO DAILY 07/18/12 [History] Insulin Glargine,Hum.rec.anlog [Lantus] 20 unit SQ HS 07/18/12 [History] Quinapril HCl 10 mg [Accupril 10MG Tablet] 20 mg PO DAILY 07/18/12 [History] Theophylline Anhydrous 200 mg* [Arik-Dur 200 mg] 200 mg PO TID 07/18/12 [ History] Vitamin E Acid Succinate [Vitamin E] 200 unit PO DAILY 07/18/12 [History] Omeprazole 40 mg PO DAILY 07/19/12 [History] Insulin Lispro [Humalog] 23 units SQ AC 01/18/16 [History] Citalopram Hydrobromide [Citalopram HBr] 40 mg PO DAILY 10/28/16 [History] Ranolazine 500 MG [Ranexa 500 MG] 1 tab PO DAILY 10/28/16 [History] Simvastatin 40 mg [Zocor 40 mg] 80 mg PO HS 10/28/16 [History] Hx Tetanus, Diphtheria Vaccination/Date Given: Yes Hx Influenza Vaccination/Date Given: No Hx Pneumococcal Vaccination/Date Given: No - Review of Systems Respiratory: Cough Cardiac: Other (CHEST HEAVINESS; FAST HEART RATE.) Abdominal/Gastrointestinal: No Abdominal Pain, No Vomiting Skin: No Rash Endocrine: Excessive Sweating All Other Systems: Reviewed and Negative - Past Medical History Pertinent Past Medical History: Yes Neurological History: No Pertinent History ENT History: Cataracts Cardiac History: Hypertension, Myocardial Infarction ([place]) Respiratory History: COPD Endocrine Medical History: Diabetes Type II Musculoskeletal History: Arthritis GI Medical History: Cirrhosis, GERD History: No Pertinent History Psycho-Social History: Depression Female Reproductive Disorders: No Pertinent History Other Medical History: CHRONIC BACK PAIN, VENITA KNEE PAIN - Past Surgical History Past Surgical History: Yes Neuro Surgical History: No Pertinent History Cardiac: Cardiac Catheterization Respiratory: No Pertinent History Gastrointestinal: Appendectomy, Cholecystectomy Genitourinary: No Pertinent History Musculoskeletal: Other Female Surgical History: Hysterectomy Other Surgical History: rectal surgery, back surgery - Social History Smoking Status: Former smoker Exposure to second hand smoke: No Drug Use: none Patient Lives Alone: No - Physical Exam General Appearance: alert, anxiety Eye Exam: PERRL/EOMI Ears, Nose, Throat Exam: TMs normal, pharynx normal, moist mucous membranes Neck Exam: normal inspection Respiratory Exam: lungs clear, airway intact Cardiovascular Exam: normal heart sounds Gastrointestinal/Abdomen Exam: soft, normal bowel sounds Back Exam: normal range of motion Extremity Exam: normal inspection, No pedal edema Neurologic Exam: alert, cooperative Skin Exam: warm, dry - Course Nursing assessment & vital signs reviewed: Yes EKG Interpreted by Me: RATE (81), Sinus Rhythm, NORMAL AXIS, NORMAL INTERVALS - Radiology Exams Chest X-ray Interpretation: Interpreted by me, No Pneumonia Ordered Tests: Active Orders 24 hr Category Date Time Status Network Operations Project Manager STAT Care 11/05/16 21:51 Active EKG-ER Only STAT Care 11/05/16 21:51 Active EKG-ER Only STAT Care 11/06/16 00:04 Active IV Insertion STAT Care 11/05/16 21:51 Active Oxygen-ED Only NASAL CANNULA 2 lpm Care 11/05/16 21:51 Active Pulse Oximetry (ED) STAT Care 11/05/16 21:51 Active CHEST 1 VIEW (PORTABLE) Stat Exams 11/05/16 21:52 Taken AMYLASE Stat Lab 11/05/16 22:10 Completed CBC W DIFF Stat Lab 11/05/16 22:10 Completed CMP Stat Lab 11/05/16 22:10 Completed LIPASE Stat Lab 11/05/16 22:10 Completed MAGNESIUM Stat Lab 11/05/16 22:10 Completed MAGNESIUM Stat Lab 11/06/16 00:25 Completed Manual Differential NC Stat Lab 11/05/16 22:10 Completed NT PRO BNP Stat Lab 11/05/16 22:10 Completed PROTIME WITH INR Stat Lab 11/05/16 22:10 Completed PTT Stat Lab 11/05/16 22:10 Completed TROPONIN Q3H Lab 11/05/16 22:10 Completed TROPONIN Q3H Lab 11/06/16 01:00 Ordered TROPONIN Q3H Lab 11/06/16 04:00 Ordered TROPONIN Q3H Lab 11/06/16 07:00 Ordered TROPONIN Q3H Lab 11/06/16 10:00 Ordered TROPONIN Stat Lab 11/06/16 00:25 Completed UA Stat Lab 11/05/16 23:50 Completed Medication Summary Generic Name Dose Route Start Last Admin Trade Name Freq PRN Reason Stop Dose Admin Sodium Chloride 1,000 mls @ 100 mls/hr 11/05/16 22:00 11/05/16 22:08 Sodium Chloride 0.9% 1000 Ml IV 12/05/16 21:59 100 mls/hr .Q10H SONAL Administration Discontinued Medications Generic Name Dose Route Start Last Admin Trade Name Freq PRN Reason Stop Dose Admin Aspirin 324 mg 11/05/16 21:51 11/05/16 22:11 Baby Aspirin 81 Mg Chew PO 11/05/16 21:52 324 mg STAT ONE Administration Aspirin Confirm 11/05/16 22:05 Baby Aspirin 81 Mg Chew Administered 11/05/16 22:06 Dose 324 mg .ROUTE .STK-MED ONE Diazepam 5 mg 11/05/16 22:02 11/05/16 22:10 Valium 5 Mg PO 11/05/16 22:03 5 mg STAT ONE Administration Diazepam Confirm 11/05/16 22:05 Valium 5 Mg Administered 11/05/16 22:06 Dose 5 mg .ROUTE .STK-MED ONE Magnesium Sulfate/Dextrose 100 mls @ 200 mls/hr 11/05/16 23:05 11/05/16 23:30 Magnesium 1 Gm / 100 Ml D5w IV 11/05/16 23:34 200 mls/hr STAT ONE Administration Magnesium Sulfate/Dextrose Confirm 11/05/16 23:28 Magnesium 1 Gm / 100 Ml D5w Administered 11/05/16 23:29 Dose 100 mls @ ud IV .STK-MED ONE Nitroglycerin 0.4 mg 11/05/16 21:51 11/05/16 22:11 Nitrostat 0.4 Mg (Ed) SL 11/05/16 21:52 0.4 mg STAT ONE Administration Nitroglycerin Confirm 11/05/16 22:05 Nitrostat 0.4 Mg (Ed) Administered 11/05/16 22:06 Dose 0.4 mg SL .STK-MED ONE Lab/Rad Data: Laboratory Result Diagrams 11/05/16 22:10 11/05/16 22:10 Laboratory Results 11/06/16 11/05/16 11/05/16 Range/Units 00:25 23:50 22:10 WBC (4.0-10.5) K/mm3 RBC (4.1-5.4) M/mm3 Hgb (12.0-16.0) gm/dl Hct (35-47) % MCV (78-100) fl MCH (26-32) pg MCHC (32-36) g/dl RDW (11.5-14.0) % Plt Count (150-450) K/mm3 MPV (6-9.5) fl Segmented Neutrophils (36.0-66.0) % Lymphocytes (Manual) (24-44) % Monocytes (Manual) (0.0-12.0) % Eosinophils (Manual) (0.00-3.0) % Differential Comment Platelet Estimate (NORMAL) INR (0.8-3.0) PTT (25.3-37.0) SECONDS Sodium (136-145) mEq/L Potassium (3.5-5.1) mEq/L Chloride (98-107) mEq/L Carbon Dioxide (21-32) mEq/L Anion Gap (5-15) MEQ/L BUN (9-20) mg/dL Creatinine (0.55-1.30) mg/dl Estimated GFR ML/MIN Glucose (70-110) MG/DL Calcium (8.5-10.1) mg/dL Magnesium 2.0 (1.8-2.4) mg/dL Total Bilirubin (0.2-1.0) mg/dL AST (15-37) U/L ALT (12-78) U/L Alkaline Phosphatase (46-116) U/L Troponin I < 0.017 < 0.017 (0.000-0.056) ng/ml NT-Pro-B Natriuret Pep (0-125) pg/ml Serum Total Protein (6.4-8.2) gm/dL Albumin (3.4-5.0) g/dL Amylase (25-115) U/L Lipase (73-393) U/L Ur Collection Type CLEAN CATCH Urine Color YELLOW (YELLOW) Urine Appearance CLEAR (CLEAR) Urine pH 6.0 (5-6) Ur Specific Franklin <=1.005 (1.005-1.025) Urine Protein NEGATIVE (Negative) Urine Glucose (UA) NEGATIVE (NEGATIVE) mg/dL Urine Ketones NEGATIVE (NEGATIVE) Urine Nitrite NEGATIVE (NEGATIVE) Urine Bilirubin NEGATIVE (NEGATIVE) Urine Urobilinogen 0.2 (0-1) mg/dL Urine WBC (Auto) NEGATIVE (NEGATIVE) Urine RBC (Auto) NEGATIVE (0-5) Bubba/ul Specimen Received 11/05/16:2330 11/05/16 11/05/16 11/05/16 Range/Units 22:10 22:10 22:10 WBC 11.4 H (4.0-10.5) K/mm3 RBC 5.29 (4.1-5.4) M/mm3 Hgb 15.3 (12.0-16.0) gm/dl Hct 46.4 (35-47) % MCV 87.7 (78-100) fl MCH 28.9 (26-32) pg MCHC 33.0 (32-36) g/dl RDW 14.2 H (11.5-14.0) % Plt Count 205 (150-450) K/mm3 MPV 10.1 H (6-9.5) fl Segmented Neutrophils 56 (36.0-66.0) % Lymphocytes (Manual) 32 (24-44) % Monocytes (Manual) 9 (0.0-12.0) % Eosinophils (Manual) 3 (0.00-3.0) % Differential Comment NORMAL Platelet Estimate NORMAL (NORMAL) INR 0.99 (0.8-3.0) PTT 34.5 (25.3-37.0) SECONDS Sodium 141 (136-145) mEq/L Potassium 4.0 (3.5-5.1) mEq/L Chloride 103 (98-107) mEq/L Carbon Dioxide 28.4 (21-32) mEq/L Anion Gap 13.8 (5-15) MEQ/L BUN 18 (9-20) mg/dL Creatinine 0.94 (0.55-1.30) mg/dl Estimated GFR > 60 ML/MIN Glucose 122 H (70-110) MG/DL Calcium 9.3 (8.5-10.1) mg/dL Magnesium 1.5 L (1.8-2.4) mg/dL Total Bilirubin 0.8 (0.2-1.0) mg/dL AST 24 (15-37) U/L ALT 24 (12-78) U/L Alkaline Phosphatase 68 (46-116) U/L Troponin I (0.000-0.056) ng/ml NT-Pro-B Natriuret Pep 49 (0-125) pg/ml Serum Total Protein 6.9 (6.4-8.2) gm/dL Albumin 3.9 (3.4-5.0) g/dL Amylase 33 (25-115) U/L Lipase 130 (73-393) U/L Ur Collection Type Urine Color (YELLOW) Urine Appearance (CLEAR) Urine pH (5-6) Ur Specific Franklin (1.005-1.025) Urine Protein (Negative) Urine Glucose (UA) (NEGATIVE) mg/dL Urine Ketones (NEGATIVE) Urine Nitrite (NEGATIVE) Urine Bilirubin (NEGATIVE) Urine Urobilinogen (0-1) mg/dL Urine WBC (Auto) (NEGATIVE) Urine RBC (Auto) (0-5) Bubba/ul Specimen Received - Departure Time of Disposition: 01:16 Departure Disposition: Home Clinical Impression: CHEST HEAVINESS, HYPOMAGNESEMIA - CORRECTED IN ER, ANXIETY, HTN, COPD, ARTHRITIS, CIRRHOSIS, DM, GERD, DEPRESSION Condition: Fair Critical Care Time: No Referrals: RENETTA EPSTEIN MD [Primary Care Provider] - Instructions: Chest Pain Additional Instructions: FOLLOW UP WITH PRIVATE DOCTOR LATER TODAY.
[2016-11-05] MEDS ORDERED: Sodium Chloride 0.9% 1000 ML 1,000 ML IV SCH (22:00)
[2016-11-05] MEDS ORDERED: Valium 5 MG PO ONE (22:02)
[2016-11-05] MEDS ORDERED: Valium 5 MG ONE (22:05)
[2016-11-05] MEDS ORDERED: BABY ASPIRIN 81 MG CHEW ONE (22:05)
[2016-11-05] MEDS ORDERED: Sodium Chloride 0.9% 1000 ML 1,000 ML ONE (22:06)
[2016-11-05 22:13] LABS: Mean Cell Volume 87.7 fl (78-100); Mean Corpuscular Hemoglobin 28.9 pg (26-32); Mean Platelet Volume 10.1 fl (6-9.5); Platelet Count 205 K/mm3 (150-450); Red Blood Count 5.29 M/mm3 (4.1-5.4); Red Cell Distribution Width 14.2 % (11.5-14.0); White Blood Count 11.4 K/mm3 (4.0-10.5)
[2016-11-05 22:25] LABS: INR 0.99 (0.8-3.0); PROTIME 11.1 SECONDS (9.95-12.35)
[2016-11-05 22:27] LABS: PTT 34.5 SECONDS (25.3-37.0)
[2016-11-05 22:35] LABS: Eosinophil 3 % (0.00-3.0); Platelet Estimate NORMAL (NORMAL); Total Cells Counted 100
[2016-11-05 22:40] LABS: ALBUMIN 3.9 g/dL (3.4-5.0); ALKALINE PHOSPHATASE 68 U/L (46-116); ANION GAP 13.8 MEQ/L (5-15); BILIRUBIN,TOTAL 0.8 mg/dL (0.2-1.0); BLOOD UREA NITROGEN 18 mg/dL (9-20); CHLORIDE 103 mEq/L (98-107); Carbon Dioxide 28.4 mEq/L (21-32); Glucose 122 MG/DL (70-110); LIPASE 130 U/L (73-393); MAGNESIUM 1.5 mg/dL (1.8-2.4); SGOT/AST 24 U/L (15-37); SGPT/ALT 24 U/L (12-78); SODIUM 141 mEq/L (136-145); Total Protein 6.9 gm/dL (6.4-8.2)
[2016-11-05] MEDS ORDERED: Magnesium 1 Gm / 100 Ml D5W*** 100 ML IV ONE ×2 (23:05→23:28)
[2016-11-06 00:08] LABS: COMPLETE URINE MICROSCOPIC? NO; Collection Type CLEAN CATCH
[2016-11-06 00:51] LABS: TROPONIN < 0.017 ng/ml (0.000-0.056)
[2016-11-06 01:00] VITALS: BP 119/81; PULSE 76; O2SAT 93
--- NOTE | 2016-11-06 09:41 | XRAY ---
Indication: Tachycardia and chest heaviness. Comparison: October 27, 2016. Portable chest again demonstrates normal heart and lungs with a few calcified granulomas. Bony thorax intact again with mild osteopenia. Impression: Stable nonacute chest with chronic features.
== END 2016-11-06 01:35 | disposition home or self-care (01) ==
LOC: ED 21:48
DX: R07.89 Other chest pain (principal); E83.42 Hypomagnesemia; F41.9 Anxiety disorder, unspecified; I10 Essential (primary) hypertension; J44.9 Chronic obstructive pulmonary disease, unspecified; M19.90 Unspecified osteoarthritis, unspecified site; K74.60 Unspecified cirrhosis of liver; E11.9 Type 2 diabetes mellitus without complications; K21.9 Gastro-esophageal reflux disease without esophagitis; F32.9 Major depressive disorder, single episode, unspecified; R05 Cough; Z79.899 Other long term (current) drug therapy; Z79.84 Long term (current) use of oral hypoglycemic drugs; Z79.4 Long term (current) use of insulin
CPT/HCPCS: 36000; 36415; 71010; 80053; 81002; 82150; 83690; 83735; 83880; 84484; 85025; 85610; 85730; 93005; 93041; 96360; 96361; 96365; 99284; J3475; A9270-GY

== ENCOUNTER 2017-02-10 04:05 | Observation (INO) | payer MEDICARE, SELFPAY ==
--- NOTE | 2017-02-10 04:20 | ERPHSYRPT ---
- History of Present Illness Time Seen by Provider: 02/10/17 04:18 Source: patient Exam Limitations: no limitations Physician History: Patient is a 71-year-old female with a history of A. fib comes in complaining of rapid heart rate that began about 2 hours ago. A few months ago the rapid heart rate stopped after a few minutes and she didn't have to come in. This time it has not stopped. She denies any chest pain. Mild SOB. PMH of COPD, A- fib, A-fib with RVR, DM. Timing/Duration: hour(s) (2) Activities at Onset: rest Quality: other (rapid heart rate) Severity of Pain-Max: none Severity of Pain-Current: none Modifying Factors: Improves With: nothing Nitro Today/Relief: no nitro taken today Aspirin Treatment Today: no aspirin today Associated Symptoms: shortness of breath Allergies/Adverse Reactions: codeine [Codeine] Allergy (Severe, Verified 02/10/17 04:13) Iodinated Contrast- Oral and IV Dye [IV Dye, Iodine Containing Contrast ] Allergy (Severe, Verified 02/10/17 04:13) levofloxacin [From Levaquin] Allergy (Severe, Verified 02/10/17 04:13) oxytetracycline [From Terramycin] Allergy (Severe, Verified 02/10/17 04:13) oxytetracycline HCl [From Terramycin] Allergy (Severe, Verified 02/10/17 04:13) Penicillins Allergy (Severe, Verified 02/10/17 04:13) Sulfa (Sulfonamide Antibiotics) [Sulfa(Sulfonamide Antibiotics)] Allergy (Severe , Verified 02/10/17 04:13) iodine Allergy (Unknown, Verified 02/10/17 04:13) Home Medications: Albuterol Sulfate 0.63 mg IH TID PRN PRN 07/18/12 [History] Ascorbic Acid 500 mg [Vitamin C 500 MG] 500 mg PO DAILY 07/18/12 [History] Aspirin [Aspir 81] 81 mg PO DAILY 07/18/12 [History] Carvedilol 6.25 mg [Coreg 6.25 MG] 6.25 mg PO BID 07/18/12 [History] Clopidogrel Bisulfate 75 mg [PLAVIX 75 MG Tablet] 75 mg PO DAILY 07/18/12 [History] Cyanocobalamin (Vitamin B-12) [Vitamin B-12] 100 mcg PO DAILY 07/18/12 [History] Insulin Glargine,Hum.rec.anlog [Lantus] 20 unit SQ HS 07/18/12 [History] Quinapril HCl 10 mg [Accupril 10MG Tablet] 20 mg PO DAILY 07/18/12 [History] Theophylline Anhydrous 200 mg* [Arik-Dur 200 mg] 200 mg PO TID 07/18/12 [ History] Vitamin E Acid Succinate [Vitamin E] 200 unit PO DAILY 07/18/12 [History] Omeprazole 40 mg PO DAILY 07/19/12 [History] Insulin Lispro [Humalog] 23 units SQ AC 01/18/16 [History] Citalopram Hydrobromide [Citalopram HBr] 40 mg PO DAILY 10/28/16 [History] Ranolazine 500 MG [Ranexa 500 MG] 1 tab PO DAILY 10/28/16 [History] Simvastatin 40 mg [Zocor 40 mg] 80 mg PO HS 10/28/16 [History] Hx Tetanus, Diphtheria Vaccination/Date Given: Yes Hx Influenza Vaccination/Date Given: No Hx Pneumococcal Vaccination/Date Given: No - Review of Systems Constitutional: No Fever, No Chills Eyes: No Symptoms Ears, Nose, & Throat: No Symptoms Respiratory: No Cough, No Dyspnea Cardiac: Palpitations Abdominal/Gastrointestinal: No Abdominal Pain, No Nausea, No Vomiting, No Diarrhea Genitourinary Symptoms: No Dysuria Musculoskeletal: No Back Pain, No Neck Pain Skin: No Rash Neurological: No Dizziness, No Focal Weakness, No Sensory Changes Psychological: No Symptoms Endocrine: No Symptoms Hematologic/Lymphatic: No Symptoms Immunological/Allergic: No Symptoms All Other Systems: Reviewed and Negative - Past Medical History Pertinent Past Medical History: Yes Neurological History: No Pertinent History ENT History: Cataracts Cardiac History: Hypertension, Myocardial Infarction ([place]) Respiratory History: COPD Endocrine Medical History: Diabetes Type II Musculoskeletal History: Arthritis GI Medical History: Cirrhosis, GERD History: No Pertinent History Psycho-Social History: Depression Female Reproductive Disorders: No Pertinent History Other Medical History: CHRONIC BACK PAIN, VENITA KNEE PAIN - Past Surgical History Past Surgical History: Yes Neuro Surgical History: No Pertinent History Cardiac: Cardiac Catheterization Respiratory: No Pertinent History Gastrointestinal: Appendectomy, Cholecystectomy Genitourinary: No Pertinent History Musculoskeletal: Other Female Surgical History: Hysterectomy Other Surgical History: rectal surgery, back surgery - Social History Smoking Status: Former smoker Exposure to second hand smoke: No Drug Use: none Patient Lives Alone: No - Nursing Vital Signs Nursing Vital Signs: Initial Vital Signs Temperature 97.9 F Temperature Source Oral Pulse Rate [Right Radial] 140 Pulse Rate 75 Respiratory Rate 14 Blood Pressure [Right Arm] 108/50 Pain Intensity 0 - Physical Exam General Appearance: mild distress Eye Exam: PERRL/EOMI, eyes nml inspection Ears, Nose, Throat Exam: normal ENT inspection, moist mucous membranes Neck Exam: normal inspection, non-tender, supple Respiratory Exam: normal breath sounds, lungs clear, No respiratory distress Cardiovascular Exam: tachycardia Gastrointestinal/Abdomen Exam: soft, No tenderness, No mass Pelvic Exam: not done Rectal Exam: not done Back Exam: normal inspection, No CVA tenderness, No vertebral tenderness Extremity Exam: normal inspection, normal range of motion Neurologic Exam: alert, oriented x 3, cooperative, normal mood/affect, nml cerebellar function, sensation nml, No motor deficits Skin Exam: normal color, warm, dry Lymphatic Exam: No adenopathy SpO2 Interpretation: normal - Course EKG Interpreted by Me: A-fib (with RVR), NORMAL AXIS, NORMAL INTERVALS, NORMAL QRS - Radiology Exams Chest X-ray Interpretation: Interpreted by me, Negative Ordered Tests: Active Orders 24 hr Category Date Time Status EKG-ER Only STAT Care 02/10/17 04:22 Active IV Insertion STAT Care 02/10/17 04:22 Active Oxygen-ED Only NASAL CANNULA 2 lpm Care 02/10/17 04:28 Active CHEST 2 VIEWS (PA AND LAT) Stat Exams 02/10/17 04:22 Taken CBC W DIFF Stat Lab 02/10/17 04:22 Completed CMP Stat Lab 02/10/17 04:22 Completed Lactic Acid Stat Lab 02/10/17 04:40 Results MAGNESIUM Stat Lab 02/10/17 04:22 Completed TROPONIN Stat Lab 02/10/17 04:22 Completed Medication Summary Generic Name Dose Route Start Last Admin Trade Name Freq PRN Reason Stop Dose Admin Sodium Chloride 1,000 mls @ 999 mls/hr 02/10/17 04:26 02/10/17 04:31 Sodium Chloride 0.9% 1000 Ml IV 02/10/17 05:26 999 mls/hr .Q1H1M STA Administration Discontinued Medications Generic Name Dose Route Start Last Admin Trade Name Isatu PRN Reason Stop Dose Admin Diltiazem HCl 20 mg 02/10/17 04:23 02/10/17 04:31 Cardizem Iv 50 Mg/10 Ml IV 02/10/17 04:24 15 mg STAT ONE Administration Diltiazem HCl Confirm 02/10/17 04:30 Cardizem Iv 50 Mg/10 Ml Administered 02/10/17 04:31 Dose 50 mg IV .STK-MED ONE Sodium Chloride Confirm 02/10/17 04:27 Sodium Chloride 0.9% 1000 Ml Administered 02/10/17 04:28 Dose 1,000 mls @ ud .ROUTE .STK-MED ONE Lab/Rad Data: Laboratory Result Diagrams 02/10/17 04:22 02/10/17 04:22 Laboratory Results 02/10/17 02/10/17 02/10/17 Range/Units 04:40 04:22 04:22 WBC 10.2 (4.0-10.5) K/mm3 RBC 5.05 (4.1-5.4) M/mm3 Hgb 15.2 (12.0-16.0) gm/dl Hct 44.4 (35-47) % MCV 87.9 (78-100) fl MCH 30.1 (26-32) pg MCHC 34.2 (32-36) g/dl RDW 13.9 (11.5-14.0) % Plt Count 177 (150-450) K/mm3 MPV 10.1 H (6-9.5) fl Gran % 53.1 (36.0-66.0) % Lymphocytes % 27.8 (24.0-44.0) % Monocytes % 13.4 H (0.0-12.0) % Eosinophils % 5.2 H (0.00-5.0) % Basophils % 0.5 (0.0-0.4) % Basophils # 0.05 (0-0.4) Sodium 143 (136-145) mEq/L Potassium 4.3 (3.5-5.1) mEq/L Chloride 105 (98-107) mEq/L Carbon Dioxide 27.8 (21-32) mEq/L Anion Gap 14.2 (5-15) MEQ/L BUN 20 (9-20) mg/dL Creatinine 0.70 (0.55-1.30) mg/dl Estimated GFR > 60 ML/MIN Glucose 255 H (70-110) MG/DL Lactic Acid 2.1 H (0.4-2.0) Calcium 9.3 (8.5-10.1) mg/dL Magnesium 1.5 L (1.8-2.4) mg/dL Total Bilirubin 1.00 (0.2-1.0) mg/dL AST 33 (15-37) U/L ALT 20 (12-78) U/L Alkaline Phosphatase 76 (46-116) U/L Troponin I < 0.017 (0.000-0.056) ng/ml Serum Total Protein 6.1 L (6.4-8.2) gm/dL Albumin 3.5 (3.4-5.0) g/dL - Progress Progress: improved Progress Note: 02/10/17 05:17 After diltiazem 15 mg IV, pt converted to sinus. Discussed pt with Dr Gaston, who accepts for Dr Coopre at [facility] for observation. Blood Culture(s) Obtained: No Antibiotics given: No Discussed with Dr.: Other (Dr Gaston) Will see patient in: hospital (observation) Counseled pt/family regarding: lab results, diagnosis, rad results - Departure Time of Disposition: 05:19 Departure Disposition: Observation (per Dr Alek Cooper.) Clinical Impression: Atrial fibrillation with RVR Condition: Stable Critical Care Time: No Additional Instructions: You are being admitted for A. fib with RVR per Dr. Gaston for Dr. Cooper. You are given diltiazem 15 mg IV in the ER.
[2017-02-10] MEDS ORDERED: Cardizem IV 50 MG/10 ML IV ONE ×2 (04:23→04:30)
[2017-02-10] MEDS ORDERED: Sodium Chloride 0.9% 1000 ML 1,000 ML IV STA (04:26)
[2017-02-10] MEDS ORDERED: Sodium Chloride 0.9% 1000 ML 2,000 ML ONE (04:27)
[2017-02-10 04:50] LABS: Lactic Acid 2.1 (0.4-2.0)
[2017-02-10 04:53] LABS: BASOPHIL % 0.5 % (0.0-0.4); Eosinophil % 5.2 % (0.00-5.0); Granulocytes % 53.1 % (36.0-66.0); Lymphocytes % 27.8 % (24.0-44.0); Mean Cell Volume 87.9 fl (78-100); Mean Corpuscular Hemoglobin 30.1 pg (26-32); Mean Platelet Volume 10.1 fl (6-9.5); Monocytes % 13.4 % (0.0-12.0); Platelet Count 177 K/mm3 (150-450); Red Blood Count 5.05 M/mm3 (4.1-5.4); Red Cell Distribution Width 13.9 % (11.5-14.0); White Blood Count 10.2 K/mm3 (4.0-10.5)
[2017-02-10 05:04] LABS: ALBUMIN 3.5 g/dL (3.4-5.0); ALKALINE PHOSPHATASE 76 U/L (46-116); ANION GAP 14.2 MEQ/L (5-15); BLOOD UREA NITROGEN 20 mg/dL (9-20); CHLORIDE 105 mEq/L (98-107); Carbon Dioxide 27.8 mEq/L (21-32); Glucose 255 MG/DL (70-110); MAGNESIUM 1.5 mg/dL (1.8-2.4); Potassium 4.3 mEq/L (3.5-5.1); SGOT/AST 33 U/L (15-37); SGPT/ALT 20 U/L (12-78); SODIUM 143 mEq/L (136-145); TROPONIN < 0.017 ng/ml (0.000-0.056); Total Protein 6.1 gm/dL (6.4-8.2)
[2017-02-10] MEDS ORDERED: TYLENOL 325 MG PO PRN (06:04)
[2017-02-10] MEDS ORDERED: Sodium Chloride 0.9% 1000 ML 1,000 ML IV SCH (06:04)
[2017-02-10] MEDS ORDERED: PROVENTIL 2.5 MG/3 ML NEB IH PRN (06:17)
--- NOTE | 2017-02-10 09:15 | XRAY ---
Indication: Palpitations. Comparison: November 05, 2016. PA/lateral chest remains clear. Heart is not enlarged. Vascularity normal. Bony thorax intact again with mild osteopenia and degenerative changes. Impression: Stable nonacute chest.
[2017-02-10] MEDS ORDERED: Cardizem CD 120 MG PO SCH (10:00)
[2017-02-10 11:47] VITALS: BP 146/68; PULSE 67; O2SAT 98
--- NOTE | 2017-02-10 13:23 | PCM.SSS ---
History of Present Illness - Chief Complaint Chief Complaint: Tachycardia, for 1 day History of Present Illness: is a 71 year old female. with a history of A. fib comes in complaining of rapid heart rate that began about 2 hours ago. A few months ago the rapid heart rate stopped after a few minutes and she didn't have to come in. This time it has not stopped. She denies any chest pain. Mild SOB. PMH of COPD, A-fib, A-fib with RVR, DM. - Review of Systems Constitutional: No Fever, No Chills Eyes: No Symptoms Ears, Nose, & Throat: No Symptoms Respiratory: No Cough, No Short Of Breath Cardiac: Palpitations, No Chest Pain, No Edema, No Syncope Abdominal/Gastrointestinal: No Abdominal Pain, No Nausea, No Vomiting, No Diarrhea Genitourinary Symptoms: No Dysuria Musculoskeletal: No Back Pain, No Neck Pain Skin: No Rash Neurological: No Dizziness, No Focal Weakness, No Sensory Changes Psychological: No Symptoms Endocrine: No Symptoms Hematologic/Lymphatic: No Symptoms Immunological/Allergic: No Symptoms Medications & Allergies Home Medications: Home Medication List Albuterol Sulfate 1 vial NEB UD PRN 07/18/12 [History Confirmed 02/10/17] Ascorbic Acid 500 mg [Vitamin C 500 MG] 500 mg PO DAILY 07/18/12 [History Confirmed 02/10/17] Aspirin [Aspir 81] 81 mg PO DAILY 07/18/12 [History Confirmed 02/10/17] Carvedilol 6.25 mg [Coreg 6.25 MG] 6.25 mg PO BID 07/18/12 [History Confirmed 02/10/17] Clopidogrel Bisulfate 75 mg [PLAVIX 75 MG Tablet] 75 mg PO DAILY 07/18/12 [History Confirmed 02/10/17] Cyanocobalamin (Vitamin B-12) [Vitamin B-12] 100 mcg PO DAILY 07/18/12 [History Confirmed 02/10/17] Insulin Glargine,Hum.rec.anlog [Lantus] 20 unit SQ HS 07/18/12 [History Confirmed 02/10/17] Quinapril HCl 10 mg [Accupril 10MG Tablet] 20 mg PO DAILY 07/18/12 [History Confirmed 02/10/17] Theophylline Anhydrous 200 mg* [Arik-Dur 200 mg] 200 mg PO TID 07/18/12 [ History Confirmed 02/10/17] Vitamin E Acid Succinate [Vitamin E] 200 unit PO DAILY 07/18/12 [History Confirmed 02/10/17] Omeprazole 40 mg PO DAILY 07/19/12 [History Confirmed 02/10/17] Insulin Lispro [Humalog] 23 units SQ AC 01/18/16 [History Confirmed 02/10/17] Citalopram Hydrobromide [Citalopram HBr] 40 mg PO DAILY 10/28/16 [History Confirmed 02/10/17] Ranolazine 500 MG [Ranexa 500 MG] 1 tab PO DAILY 10/28/16 [History Confirmed 02/10/17] Simvastatin 40 mg [Zocor 40 mg] 80 mg PO HS 10/28/16 [History Confirmed 02/10/17 ] Cholecalciferol (Vitamin D3) [Vitamin D] 0 unit PO DAILY 02/10/17 [History Confirmed 02/10/17] Allergies/Adverse Reactions: Allergies Allergy/AdvReac Type Severity Reaction Status Date / Time codeine [Codeine] Allergy Severe Verified 02/10/17 04:13 Iodinated Contrast- Oral and Allergy Severe Verified 02/10/17 04:13 IV Dye [IV Dye, Iodine Containing Contrast ] levofloxacin [From Levaquin] Allergy Severe Verified 02/10/17 04:13 oxytetracycline Allergy Severe Verified 02/10/17 04:13 [From Terramycin] oxytetracycline HCl Allergy Severe Verified 02/10/17 04:13 [From Terramycin] Penicillins Allergy Severe Verified 02/10/17 04:13 Sulfa (Sulfonamide Allergy Severe Verified 02/10/17 04:13 Antibiotics) [Sulfa(Sulfonamide Antibiotics)] iodine Allergy Unknown Verified 02/10/17 04:13 - Past Medical History Past Medical History: Yes Neurological History: No Pertinent History ENT History: Cataracts Cardiac History: Hypertension, Myocardial Infarction ([place]) Respiratory History: COPD Endocrine Medical History: Diabetes Type II Musculoskelatal History: Arthritis GI Medical History: Cirrhosis, GERD History: No Pertinent History Pyscho-Social History: Depression Reproductive Disorders: No Pertinent History Comment: CHRONIC BACK PAIN, VENITA KNEE PAIN - Female History Are you now?: No - Past Surgical History Past Surgical History: Yes Neuro Surgical History: No Pertinent History Cardiac History: Cardiac Catheterization Respiratory Surgery: No Pertinent History GI Surgical History: Appendectomy, Cholecystectomy Genitourinary Surgical Hx: No Pertinent History Musculskeletal Surgical Hx: Other Female Surgical History: Hysterectomy Other Surgical History: rectal surgery, back surgery - Social History Smoking Status: Former smoker Exposure to second hand smoke: No Alcohol: None Drug Use: none - Physical Exam Vital Signs: Vital Signs - 24 hr Temp Pulse Pulse Resp BP Pulse Ox 02/10/17 11:47 98.0 F 67 18 146/68 98 02/10/17 07:48 97 02/10/17 07:04 98.1 F 75 163/67 96 02/10/17 06:04 96 02/10/17 05:55 75 17 96 02/10/17 05:44 98.1 F 80 18 163/67 96 02/10/17 05:03 75 14 108/50 96 02/10/17 04:43 72 15 110/65 95 02/10/17 04:40 76 18 112/59 94 L 02/10/17 04:36 123 H 18 101/61 94 L 02/10/17 04:14 97.9 F 138 H 140 H 18 101/85 91 L Oxygen-Last 24 hours O2 Percentage 2 Liters = 28% O2 Percentage 2 Liters = 28% O2 Percentage 2 Liters = 28% O2 Percentage 2 Liters = 28% O2 Percentage 2 Liters = 28% O2 Percentage 2 Liters = 28% General Appearance: no apparent distress, alert Neurologic Exam: alert, oriented x 3, cooperative, normal mood/affect, nml cerebellar function, nml station & gait, sensation nml, No motor deficits Eye Exam: PERRL/EOMI, eyes nml inspection Ears, Nose, Throat Exam: normal ENT inspection, TMs normal, pharynx normal, moist mucous membranes Neck Exam: normal inspection, non-tender, supple, full range of motion Respiratory Exam: normal breath sounds, lungs clear, No respiratory distress Cardiovascular Exam: regular rate/rhythm, normal heart sounds, normal peripheral pulses Gastrointestinal/Abdomen Exam: soft, normal bowel sounds, No tenderness, No mass Back Exam: normal inspection, normal range of motion, No CVA tenderness, No vertebral tenderness Extremity Exam: normal inspection, normal range of motion, pelvis stable Skin Exam: normal color, warm, dry, No rash Lymphatic Exam: No adenopathy Results - Labs Lab/Micro Results: Lab Results-Last 24 Hours 02/10/17 Range/Units 06:45 Lactic Acid 1.4 (0.4-2.0) - Other Procedures and Tests Respiratory Therapy 02/10/17 06:13 Respiratory Nebulizer PRN Assessment/Plan (1) Palpitations Current Visit: Yes Status: Resolved Code(s): R00.2 - PALPITATIONS (2) HTN (hypertension) Current Visit: Yes Status: Acute Qualifiers: Hypertension type: essential hypertension Qualified Code(s): I10 - Essential (primary) hypertension Code(s): I10 - ESSENTIAL (PRIMARY) HYPERTENSION (3) Type 2 diabetes mellitus Current Visit: Yes Status: Acute Qualifiers: Diabetes mellitus complication status: with hyperglycemia Diabetes mellitus group home insulin use: with computer terminal operator use Qualified Code(s): E11.65 - Type 2 diabetes mellitus with hyperglycemia; Z79.4 - penitentiary (current) use of insulin Hospital Summary - Vitals & Intake/Output Vital Signs: Vital Signs Temperature 98.0 F 02/10/17 11:47 Pulse Rate 67 02/10/17 11:47 Respiratory Rate 18 02/10/17 11:47 Blood Pressure 146/68 02/10/17 11:47 O2 Sat by Pulse Oximetry 98 02/10/17 11:47 Oxygen-Last Documented O2 Percentage 2 Liters = 28% Intake & Output: Intake & Output 02/08/17 02/09/17 02/10/17 02/11/17 11:59 11:59 11:59 11:59 Intake Total 360 480 Output Total 750 Balance -390 480 Weight 84.323 kg - Lab Result Diagrams: 02/10/17 04:22 02/10/17 04:22 Lab Results-Last 24 Hrs: Lab Results-Last 24 Hours 02/10/17 Range/Units 06:45 Lactic Acid 1.4 (0.4-2.0) - Procedures and Test Procedures and Tests throughout Hospitalization: Therapy Orders & Screens 02/10/17 06:13 Respiratory Nebulizer PRN Comment: ALBUTEROL TIDPRN FOR SOB/WHEEZING 02/10/17 06:18 Respiratory Therapy Consult ROUTINE Comment: Reason For Exam: 02/10/17 06:25 OT Screen per Nursing Assess ONCE Comment: Protocol Order Physician Instructions: Greater than 3 points order OT Admission Screening Reason For Exam: Triggered on Admission Diagnosis: Tachycardia, A-fib, dehydration Open Wound/Cellutlitis/Pressure Ulcers: Yes Acute Fx/ORIF/Change in wt bearing status: No Severe MUSCULOSKELETAL pain: No ADL Dysfunction: No Acute CVA w/Hemiparesis/Hemiplegia: No Decreased Functional Mobility/Strength: Yes Sprain/Strain: No Acute Post-op Mobility Dysfunction: No Total Points: 6 PT Screen per Nursing Assess ONCE Comment: Protocol Order Physician Instructions: Greater than 3 points order PT Admission Screenin Reason For Exam: Triggered on Admission Diagnosis: Tachycardia, A-fib, dehydration Open Wound/Cellutlitis/Pressure Ulcers: Yes Acute Fx/ORIF/Change in wt bearing status: No Severe MUSCULOSKELETAL pain: No ADL Dysfunction: No Acute CVA w/Hemiparesis/Hemiplegia: No Decreased Functional Mobility/Strength: Yes Sprain/Strain: No Acute Post-op Mobility Dysfunction: No Total Points: 6 RT Screen per Nursing Assess ONCE Comment: Protocol Order Physician Instructions: Greater than 3 points order RT Admission Screen Reason For Exam: Triggered on Admission Diagnosis: Tachycardia, A-fib, dehydration Diagnosis: Tachycardia, A-fib, dehydration Pneumonia: No Home O2: No Asthma: Yes CHF: No Home CPAP/BIPAP: No Home Nebs/MDI: Yes Total Points: 9 - Discharge Discharge Date: 02/10/17 Disposition: Home, Self-Care Condition: Stable Prescriptions: Continue Vitamin E Acid Succinate [Vitamin E] 200 unit PO DAILY Ascorbic Acid 500 mg [Vitamin C 500 MG] 500 mg PO DAILY Cyanocobalamin (Vitamin B-12) [Vitamin B-12] 100 mcg PO DAILY Clopidogrel Bisulfate 75 mg [PLAVIX 75 MG Tablet] 75 mg PO DAILY Albuterol Sulfate 1 vial NEB UD PRN PRN Reason: wheezes Insulin Glargine,Hum.rec.anlog [Lantus] 20 unit SQ HS Carvedilol 6.25 mg [Coreg 6.25 MG] 6.25 mg PO BID Theophylline Anhydrous 200 mg* [Arik-Dur 200 mg] 200 mg PO TID Quinapril HCl 10 mg [Accupril 10MG Tablet] 20 mg PO DAILY Aspirin [Aspir 81] 81 mg PO DAILY Omeprazole 40 mg PO DAILY Insulin Lispro [Humalog] 23 units SQ AC Ranolazine 500 MG [Ranexa 500 MG] 1 tab PO DAILY Simvastatin 40 mg [Zocor 40 mg] 80 mg PO HS Citalopram Hydrobromide [Citalopram HBr] 40 mg PO DAILY Cholecalciferol (Vitamin D3) [Vitamin D] 0 unit PO DAILY Additional Instructions: Follow up with: JERMAIN BLUM MD [NON-STAFF PHY W/O PRIVILEGES] - 1 Week RENETTA EPSTEIN MD [Primary Care Provider] - Forms: Patient Portal Information
[2017-02-10] MEDS ORDERED: VITAMIN D PO SCH (14:30)
[2017-02-10] MEDS ORDERED: Protonix 40MG Tablet PO SCH (14:30)
[2017-02-10] MEDS ORDERED: Vitamin C 500 MG PO SCH (14:30)
[2017-02-10] MEDS ORDERED: Coreg 6.25 MG PO SCH (14:30)
[2017-02-10] MEDS ORDERED: VITAMIN B-12 100 MCG PO SCH (14:30)
[2017-02-10] MEDS ORDERED: Vitamin E 400 UNIT SOFTGEL PO SCH (14:30)
[2017-02-10] MEDS ORDERED: ECOTRIN 81 MG PO SCH (14:30)
[2017-02-10] MEDS ORDERED: PLAVIX 75 MG Tablet PO SCH (14:30)
[2017-02-10] MEDS ORDERED: ceLEXa 20 MG PO SCH (14:30)
[2017-02-10] MEDS ORDERED: Accupril 10MG Tablet PO SCH (14:30)
[2017-02-10] MEDS ORDERED: Ranexa 500 MG PO SCH (14:30)
[2017-02-10] MEDS ORDERED: THEO-DUR 200 MG PO SCH (15:00)
[2017-02-11] MEDS ORDERED: NON-FORMULARY ITEM (Omeprazole [Omeprazole] 40 MG) PO SCH (10:00)
[2017-02-11] MEDS ORDERED: NON-FORMULARY ITEM (Citalopram Hydrobromide [Citalopram Hbr] 40 MG) PO SCH (10:00)
[2017-02-11] MEDS ORDERED: NON-FORMULARY ITEM (Cholecalciferol (Vitamin D3) [Vitamin D] 400 UNIT) PO SCH (10:00)
[2017-02-11] MEDS ORDERED: [UNRECOGNIZED DRUG - OTHER] PO SCH (10:00)
== END 2017-02-10 14:35 | disposition home or self-care (01) ==
LOC: ED 04:05 → MED SURG 05:37
PROVIDERS: ADMIT General Practice; ATTEND General Practice
DX: R00.2 Palpitations (principal); I10 Essential (primary) hypertension; E11.65 Type 2 diabetes mellitus with hyperglycemia; I48.91 Unspecified atrial fibrillation; J44.9 Chronic obstructive pulmonary disease, unspecified; K21.9 Gastro-esophageal reflux disease without esophagitis; M19.90 Unspecified osteoarthritis, unspecified site; F32.9 Major depressive disorder, single episode, unspecified
CPT/HCPCS: 36000; 36415; 71020; 80053; 83605; 83735; 84484; 85025; 93005; 93268; 94760; 96360; 99285; G0378; A9270-GY

== ENCOUNTER 2017-02-15 11:18 | Observation (INO) | payer MEDICARE, SELFPAY ==
[~2017-02-15 11:18] MED LIST: Versed 2 MG/2 ML Injection IV ONE
--- NOTE | 2017-02-15 11:31 | ERPHSYRPT ---
- History of Present Illness Time Seen by Provider: 02/15/17 14:38 Source: patient Exam Limitations: no limitations Patient Subjective Stated Complaint: pt co pain to head and left side of chest started at 1000 today while straining on toliet, pt was just in er on 02/10/17. and admitted for afib, Triage Nursing Assessment: pt alert, moaning, and anxious. resp easy, chest clear, moves all ext well, no edema noted Physician History: The patient is a 71-year-old female who I saw on February 10 for atrial fibrillation with a rapid ventricular response that was corrected to sinus rhythm with diltiazem 50 mg IV who comes in today complaining of having lightheadedness and head and chest pain that started at 10 AM when she was straining on the toilet.The patient was hospitalized February 10 overnight for the bout of A. fib with RVR and was discharged without any medicine change. She also complains of having significant amounts of diarrhea daily since February 06.Patient's past medical history is significant for A. fib with RVR, hypertension, diabetes, GERD , high cholesterol, and congestive heart failure. Timing/Duration: today, hour(s) (1) Activities at Onset: none (straining) Quality: aching Location: substernal Chest Pain Radiation: no radiation Severity of Pain-Max: mild Severity of Pain-Current: mild Modifying Factors: Improves With: palpation Nitro Today/Relief: no nitro taken today Aspirin Treatment Today: 81 mg x 1 Associated Symptoms: nausea, shortness of breath Prior Chest Pain/Cardiac Workup: recently seen/treated, recent hospitalization Allergies/Adverse Reactions: codeine [Codeine] Allergy (Severe, Verified 02/15/17 11:27) Iodinated Contrast- Oral and IV Dye [IV Dye, Iodine Containing Contrast ] Allergy (Severe, Verified 02/15/17 11:27) levofloxacin [From Levaquin] Allergy (Severe, Verified 02/15/17 11:27) oxytetracycline [From Terramycin] Allergy (Severe, Verified 02/15/17 11:27) oxytetracycline HCl [From Terramycin] Allergy (Severe, Verified 02/15/17 11:27) Penicillins Allergy (Severe, Verified 02/15/17 11:27) Sulfa (Sulfonamide Antibiotics) [Sulfa(Sulfonamide Antibiotics)] Allergy (Severe , Verified 02/15/17 11:27) iodine Allergy (Unknown, Verified 02/15/17 11:27) Home Medications: Albuterol Sulfate 1 vial NEB UD PRN 07/18/12 [History] Ascorbic Acid 500 mg [Vitamin C 500 MG] 500 mg PO DAILY 07/18/12 [History] Aspirin [Aspir 81] 81 mg PO DAILY 07/18/12 [History] Carvedilol 6.25 mg [Coreg 6.25 MG] 6.25 mg PO BID 07/18/12 [History] Clopidogrel Bisulfate 75 mg [PLAVIX 75 MG Tablet] 75 mg PO DAILY 07/18/12 [History] Cyanocobalamin (Vitamin B-12) [Vitamin B-12] 100 mcg PO DAILY 07/18/12 [History] Insulin Glargine,Hum.rec.anlog [Lantus] 20 unit SQ HS 07/18/12 [History] Quinapril HCl 10 mg [Accupril 10MG Tablet] 20 mg PO DAILY 07/18/12 [History] Theophylline Anhydrous 200 mg* [Arik-Dur 200 mg] 200 mg PO TID 07/18/12 [ History] Vitamin E Acid Succinate [Vitamin E] 200 unit PO DAILY 07/18/12 [History] Omeprazole 40 mg PO DAILY 07/19/12 [History] Insulin Lispro [Humalog] 23 units SQ AC 01/18/16 [History] Citalopram Hydrobromide [Citalopram HBr] 40 mg PO DAILY 10/28/16 [History] Ranolazine 500 MG [Ranexa 500 MG] 1 tab PO DAILY 10/28/16 [History] Simvastatin 40 mg [Zocor 40 mg] 80 mg PO HS 10/28/16 [History] Cholecalciferol (Vitamin D3) [Vitamin D] 0 unit PO DAILY 02/10/17 [History] Hx Tetanus, Diphtheria Vaccination/Date Given: Yes Hx Influenza Vaccination/Date Given: No Hx Pneumococcal Vaccination/Date Given: Yes - Review of Systems Constitutional: No Fever, No Chills Eyes: No Symptoms Ears, Nose, & Throat: No Symptoms Respiratory: Dyspnea Cardiac: Chest Pain Abdominal/Gastrointestinal: Nausea, No Vomiting Genitourinary Symptoms: No Dysuria Musculoskeletal: No Back Pain, No Neck Pain Skin: No Rash Neurological: No Dizziness, No Focal Weakness, No Sensory Changes Psychological: No Symptoms Endocrine: No Symptoms Hematologic/Lymphatic: No Symptoms Immunological/Allergic: No Symptoms All Other Systems: Reviewed and Negative - Past Medical History Pertinent Past Medical History: Yes Neurological History: No Pertinent History ENT History: Cataracts Cardiac History: Hypertension, Myocardial Infarction ([place]) Respiratory History: COPD Endocrine Medical History: Diabetes Type II Musculoskeletal History: Arthritis GI Medical History: Cirrhosis, GERD History: No Pertinent History Psycho-Social History: Depression Female Reproductive Disorders: No Pertinent History Other Medical History: CHRONIC BACK PAIN, VENITA KNEE PAIN - Past Surgical History Past Surgical History: Yes Neuro Surgical History: No Pertinent History Cardiac: Cardiac Catheterization Respiratory: No Pertinent History Gastrointestinal: Appendectomy, Cholecystectomy Genitourinary: No Pertinent History Musculoskeletal: Other Female Surgical History: Hysterectomy Other Surgical History: rectal surgery, back surgery - Social History Smoking Status: Former smoker Exposure to second hand smoke: No Drug Use: none Patient Lives Alone: No - Female History Hx Last Menstrual Period: post - Nursing Vital Signs Nursing Vital Signs: Initial Vital Signs Temperature Source Oral Pulse Rate [Bilateral Radial] 138 Pulse Rate 51 Respiratory Rate 16 Blood Pressure [Right Arm] 94/56 Pain Intensity 0 - Physical Exam General Appearance: moderate distress Eye Exam: PERRL/EOMI (who was sent to I don't want to do the x-ray unti to be bad form Jaswinder), eyes nml inspection Ears, Nose, Throat Exam: normal ENT inspection, moist mucous membranes Neck Exam: normal inspection, non-tender, supple Respiratory Exam: normal breath sounds, lungs clear, No respiratory distress Cardiovascular Exam: tachycardia Gastrointestinal/Abdomen Exam: soft, No tenderness, No mass Pelvic Exam: not done Rectal Exam: not done Back Exam: normal inspection, No CVA tenderness, No vertebral tenderness Extremity Exam: normal inspection, normal range of motion Neurologic Exam: alert, oriented x 3, cooperative, normal mood/affect, nml cerebellar function, sensation nml, No motor deficits Skin Exam: normal color, warm, dry Lymphatic Exam: No adenopathy SpO2 Interpretation: normal SpO2: 94 Oxygen Delivery: Room Air - Course EKG Interpreted by Me: RATE, A-fib (with RVR), NORMAL AXIS, NORMAL INTERVALS, NORMAL ST-T Ordered Tests: Active Orders 24 hr Category Date Time Status EKG-ER Only STAT Care 02/15/17 11:32 Active IV Insertion STAT Care 02/15/17 11:32 Active CHEST 2 VIEWS (PA AND LAT) Stat Exams 02/15/17 11:33 Ordered KUB Stat Exams 02/15/17 12:48 Ordered CBC W DIFF Stat Lab 02/15/17 11:45 Completed CMP Stat Lab 02/15/17 11:45 Completed Lactic Acid Stat Lab 02/15/17 13:55 Completed MAG [MAGNESIUM] Stat Lab 02/15/17 11:45 Completed Manual Differential NC Stat Lab 02/15/17 11:45 Completed TROPONIN Stat Lab 02/15/17 11:45 Completed Medication Summary Generic Name Dose Route Start Last Admin Trade Name Freq PRN Reason Stop Dose Admin Sodium Chloride 1,000 mls @ 100 mls/hr 02/15/17 11:45 02/15/17 12:18 Sodium Chloride 0.9% 1000 Ml IV 03/17/17 11:44 100 mls/hr .Q10H SONAL Administration Discontinued Medications Generic Name Dose Route Start Last Admin Trade Name Freq PRN Reason Stop Dose Admin Diltiazem HCl 15 mg 02/15/17 11:34 02/15/17 12:18 Cardizem Iv 50 Mg/10 Ml IV 02/15/17 11:35 15 mg STAT ONE Administration Diltiazem HCl Confirm 02/15/17 11:42 Cardizem Iv 50 Mg/10 Ml Administered 02/15/17 11:43 Dose 50 mg IV .STK-MED ONE Sodium Chloride Confirm 02/15/17 11:34 Sodium Chloride 0.9% 1000 Ml Administered 02/15/17 11:35 Dose 1,000 mls @ ud .ROUTE .STK-MED ONE Sodium Chloride 1,000 mls @ 999 mls/hr 02/15/17 12:46 02/15/17 12:47 Sodium Chloride 0.9% 1000 Ml IV 02/15/17 13:46 999 mls/hr .Q1H1M STA Administration Magnesium Sulfate 1 gm 02/15/17 14:37 Magnesium Sulfate 1 Gm/2 Ml Vial IV 02/15/17 14:38 ONCE STA Ondansetron HCl 4 mg 02/15/17 11:32 02/15/17 12:18 Zofran 4 Mg/2 Ml Vial IV 02/15/17 11:33 4 mg STAT ONE Administration Ondansetron HCl Confirm 02/15/17 11:39 Zofran 4 Mg/2 Ml Vial Administered 02/15/17 11:40 Dose 4 mg .ROUTE .STK-MED ONE Lab/Rad Data: Laboratory Result Diagrams 02/15/17 11:45 02/15/17 11:45 Laboratory Results 02/15/17 02/15/17 02/15/17 Range/Units 13:55 11:45 11:45 WBC (4.0-10.5) K/mm3 RBC (4.1-5.4) M/mm3 Hgb (12.0-16.0) gm/dl Hct (35-47) % MCV (78-100) fl MCH (26-32) pg MCHC (32-36) g/dl RDW (11.5-14.0) % Plt Count (150-450) K/mm3 MPV (6-9.5) fl Gran % (36.0-66.0) % Lymphocytes % (24.0-44.0) % Monocytes % (0.0-12.0) % Eosinophils % (0.00-5.0) % Basophils % (0.0-0.4) % Segmented Neutrophils (36.0-66.0) % Lymphocytes (Manual) (24-44) % Monocytes (Manual) (0.0-12.0) % Eosinophils (Manual) (0.00-3.0) % Basophils # (0-0.4) Differential Comment Atypical Lymphocytes % Toxic Granulation Platelet Estimate (NORMAL) Sodium 140 (136-145) mEq/L Potassium 4.1 (3.5-5.1) mEq/L Chloride 102 (98-107) mEq/L Carbon Dioxide 27.9 (21-32) mEq/L Anion Gap 14.5 (5-15) MEQ/L BUN 25 H (9-20) mg/dL Creatinine 1.00 (0.55-1.30) mg/dl Estimated GFR 58 ML/MIN Glucose 259 H (70-110) MG/DL Lactic Acid 1.3 (0.4-2.0) Calcium 9.7 (8.5-10.1) mg/dL Magnesium 1.4 L (1.8-2.4) mg/dL Total Bilirubin 1.10 H (0.2-1.0) mg/dL AST 26 (15-37) U/L ALT 25 (12-78) U/L Alkaline Phosphatase 80 (46-116) U/L Troponin I < 0.017 (0.000-0.056) ng/ml Serum Total Protein 6.7 (6.4-8.2) gm/dL Albumin 3.7 (3.4-5.0) g/dL 02/15/17 Range/Units 11:45 WBC 11.9 H (4.0-10.5) K/mm3 RBC 5.46 H (4.1-5.4) M/mm3 Hgb 16.2 H (12.0-16.0) gm/dl Hct 46.9 (35-47) % MCV 85.9 (78-100) fl MCH 29.6 (26-32) pg MCHC 34.5 (32-36) g/dl RDW 13.8 (11.5-14.0) % Plt Count 223 (150-450) K/mm3 MPV 10.4 H (6-9.5) fl Gran % 59.1 (36.0-66.0) % Lymphocytes % 24.7 (24.0-44.0) % Monocytes % 9.9 (0.0-12.0) % Eosinophils % 5.7 H (0.00-5.0) % Basophils % 0.6 (0.0-0.4) % Segmented Neutrophils 60 (36.0-66.0) % Lymphocytes (Manual) 24 (24-44) % Monocytes (Manual) 10 (0.0-12.0) % Eosinophils (Manual) 4 H (0.00-3.0) % Basophils # 0.07 (0-0.4) Differential Comment NORMAL Atypical Lymphocytes 2 % Toxic Granulation 1+ Platelet Estimate NORMAL (NORMAL) Sodium (136-145) mEq/L Potassium (3.5-5.1) mEq/L Chloride (98-107) mEq/L Carbon Dioxide (21-32) mEq/L Anion Gap (5-15) MEQ/L BUN (9-20) mg/dL Creatinine (0.55-1.30) mg/dl Estimated GFR ML/MIN Glucose (70-110) MG/DL Lactic Acid (0.4-2.0) Calcium (8.5-10.1) mg/dL Magnesium (1.8-2.4) mg/dL Total Bilirubin (0.2-1.0) mg/dL AST (15-37) U/L ALT (12-78) U/L Alkaline Phosphatase (46-116) U/L Troponin I (0.000-0.056) ng/ml Serum Total Protein (6.4-8.2) gm/dL Albumin (3.4-5.0) g/dL - Progress Progress: improved Progress Note: 02/15/17 12:27 A normal saline bolus IV was initiated and diltiazem 15 mg IV was applied to the patient with conversion of the A. fib with RVR to sinus rhythm. 02/15/17 14:25 I discussed the patient with Dr. Cooper who recommends speaking with her account executive Dr. Rodriguez. 02/15/17 14:38 Discussed pt care with Dr Barakat, account executive, who recommends hospitalize at [facility]. Blood Culture(s) Obtained: Yes Antibiotics given: No Discussed with : Kenneth Will see patient in: hospital (observation) Counseled pt/family regarding: lab results, diagnosis, rad results - Departure Time of Disposition: 14:41 Departure Disposition: Observation (per Dr Cooper) Clinical Impression: Atrial fibrillation with RVR, Atrial fibrillation with RVR, Diarrhea, Dehydration Condition: Stable Critical Care Time: No
[2017-02-15] MEDS ORDERED: Zofran 4 MG/2 ML VIAL IV ONE (11:32)
[2017-02-15] MEDS ORDERED: Sodium Chloride 0.9% 1000 ML 1,000 ML ONE (11:34)
[2017-02-15] MEDS ORDERED: Cardizem IV 50 MG/10 ML IV ONE ×2 (11:34→11:42)
[2017-02-15] MEDS ORDERED: Zofran 4 MG/2 ML VIAL ONE (11:39)
[2017-02-15] MEDS ORDERED: Sodium Chloride 0.9% 1000 ML 1,000 ML IV SCH ×2 (11:45→14:45)
[2017-02-15 11:58] LABS: BASOPHIL % 0.6 % (0.0-0.4); Eosinophil % 5.7 % (0.00-5.0); Granulocytes % 59.1 % (36.0-66.0); Lymphocytes % 24.7 % (24.0-44.0); Mean Cell Volume 85.9 fl (78-100); Mean Platelet Volume 10.4 fl (6-9.5); Monocytes % 9.9 % (0.0-12.0); Platelet Count 223 K/mm3 (150-450); Red Blood Count 5.46 M/mm3 (4.1-5.4); Red Cell Distribution Width 13.8 % (11.5-14.0); White Blood Count 11.9 K/mm3 (4.0-10.5)
[2017-02-15 12:07] LABS: Mean Corpuscular Hemoglobin 29.6 pg (26-32)
[2017-02-15 12:43] LABS: ALBUMIN 3.7 g/dL (3.4-5.0); ALKALINE PHOSPHATASE 80 U/L (46-116); ANION GAP 14.5 MEQ/L (5-15); BLOOD UREA NITROGEN 25 mg/dL (9-20); CHLORIDE 102 mEq/L (98-107); Carbon Dioxide 27.9 mEq/L (21-32); Glucose 259 MG/DL (70-110); Potassium 4.1 mEq/L (3.5-5.1); SGOT/AST 26 U/L (15-37); SGPT/ALT 25 U/L (12-78); SODIUM 140 mEq/L (136-145); Total Protein 6.7 gm/dL (6.4-8.2)
[2017-02-15] MEDS ORDERED: Sodium Chloride 0.9% 1000 ML 1,000 ML IV STA (12:46)
[2017-02-15 12:56] LABS: TROPONIN < 0.017 ng/ml (0.000-0.056)
[2017-02-15 13:10] LABS: ATYPICAL LYMPHS 2 %; Eosinophil 4 % (0.00-3.0); Platelet Estimate NORMAL (NORMAL); Total Cells Counted 100; Toxic Granulation 1+
[2017-02-15] MEDS ORDERED: Magnesium Sulfate 1 GM/2 ML VIAL IV STA (14:37)
[2017-02-15] MEDS ORDERED: Magnesium 1 Gm / 100 Ml D5W*** 100 ML IV ONE ×2 (14:43→14:44)
--- NOTE | 2017-02-15 15:27 | XRAY ---
Exam: AP upright portable chest film from 1500 hrs. on 02/15/2017. Comparison: Two-view chest from 02/10/2017. Indication: Chest pain. Findings: The transverse heart size is normal. The film was obtained in a mildly lordotic projection. The yoan and mediastinal structures appear unremarkable. Lung volumes are mildly decreased. No air space infiltrates, vascular congestion, pneumothorax, or pleural effusion is seen. The visualized bones appear grossly intact. Impression: 1. Mildly hypoinflated chest. Otherwise, no acute cardiopulmonary disease is seen.
--- NOTE | 2017-02-15 15:43 | XRAY ---
Exam: 2 portable supine films of the abdomen from 1505 hrs. on 02/15/2017. Comparison, CT of the abdomen and pelvis without IV contrast from 01/18/2016. Indication: Diarrhea Findings: Minimal air is seen within the stomach lumen. Aerated small bowel and colon loops are noted to the rectosigmoid colon. There is mild prominence of the lower abdominal/upper pelvic small bowel loops. This does not suggest bowel obstruction. Consider a mild ileus or gastroenteritis. Surgical clips consistent with prior cholecystectomy are seen within the right upper quadrant. A small calcified phlebolith is seen within the lower left pelvis. There is evidence of prior laminectomy at L4 and L5 with posterior surgical fusion of L4-S1 and bilateral bone fusion of L4-S1. Mild arthritic spurring within the upper lumbar spine is seen. Impression: 1. Nonspecific bowel gas pattern with mild prominence of lower abdominal and upper pelvic small bowel loops. Gas is seen distally within the colon. Consider a mild ileus or gastroenteritis. 2. Status post cholecystectomy and lower lumbar fusion of L4-S1.
[2017-02-15] MEDS: PROVENTIL 2.5 MG/3 ML NEB IH PRN (19:49)
[2017-02-15] MEDS ORDERED: Mobic 7.5 MG PO PRN (20:03)
[2017-02-15] MEDS: ZOCOR 20MG PO SCH (21:59)
[2017-02-15] MEDS: Coreg 6.25 MG PO SCH (21:59)
[2017-02-15] MEDS: Lantus Insulin SQ SCH (22:00)
--- NOTE | 2017-02-15 23:37 | PCM.HP ---
History of Present Illness - Chief Complaint Chief Complaint: atrial fib with RVR, diarrhea, dehydraion History of Present Illness: is a 71 year old femalecame to ER.The patient is a 71-year-old female who I saw on February 10 for atrial fibrillation with a rapid ventricular response that was corrected to sinus rhythm with diltiazem 50 mg IV who comes in today complaining of having lightheadedness and head and chest pain that started at 10 AM when she was straining on the toilet.The patient was hospitalized February 10 overnight for the bout of A. fib with RVR and was discharged without any medicine change. She also complains of having significant amounts of diarrhea daily since February 06.Patient's past medical history is significant for A. fib with RVR, hypertension, diabetes, GERD, high cholesterol, and congestive heart failure. - Review of Systems Constitutional: No Fever, No Chills Eyes: No Symptoms Ears, Nose, & Throat: No Symptoms Respiratory: No Cough, No Short Of Breath Cardiac: No Chest Pain, No Edema, No Syncope Abdominal/Gastrointestinal: No Abdominal Pain, No Nausea, No Vomiting, No Diarrhea Genitourinary Symptoms: No Dysuria Musculoskeletal: No Back Pain, No Neck Pain Skin: No Rash Neurological: No Dizziness, No Focal Weakness, No Sensory Changes Psychological: No Symptoms Endocrine: No Symptoms Hematologic/Lymphatic: No Symptoms Immunological/Allergic: No Symptoms Medications & Allergies Home Medications: Home Medication List Albuterol Sulfate 1 vial NEB UD PRN 07/18/12 [History Confirmed 02/15/17] Ascorbic Acid 500 mg [Vitamin C 500 MG] 500 mg PO DAILY 07/18/12 [History Confirmed 02/15/17] Aspirin [Aspir 81] 81 mg PO DAILY 07/18/12 [History Confirmed 02/15/17] Carvedilol 6.25 mg [Coreg 6.25 MG] 6.25 mg PO BID 07/18/12 [History Confirmed 02/15/17] Clopidogrel Bisulfate 75 mg [PLAVIX 75 MG Tablet] 75 mg PO DAILY 07/18/12 [History Confirmed 02/15/17] Cyanocobalamin (Vitamin B-12) [Vitamin B-12] 100 mcg PO DAILY 07/18/12 [History Confirmed 02/15/17] Insulin Glargine,Hum.rec.anlog [Lantus] 20 unit SQ HS 07/18/12 [History Confirmed 02/15/17] Quinapril HCl 10 mg [Accupril 10MG Tablet] 20 mg PO DAILY 07/18/12 [History Confirmed 02/15/17] Theophylline Anhydrous 200 mg* [Arik-Dur 200 mg] 200 mg PO TID 07/18/12 [ History Confirmed 02/15/17] Vitamin E Acid Succinate [Vitamin E] 200 unit PO DAILY 07/18/12 [History Confirmed 02/15/17] Omeprazole 40 mg PO DAILY 07/19/12 [History Confirmed 02/15/17] Insulin Lispro [Humalog] 23 units SQ AC 01/18/16 [History Confirmed 02/15/17] Citalopram Hydrobromide [Citalopram HBr] 40 mg PO DAILY 10/28/16 [History Confirmed 02/15/17] Ranolazine 500 MG [Ranexa 500 MG] 1 tab PO DAILY 10/28/16 [History Confirmed 02/15/17] Simvastatin 40 mg [Zocor 40 mg] 80 mg PO HS 10/28/16 [History Confirmed 02/15/17 ] Cholecalciferol (Vitamin D3) [Vitamin D] 0 unit PO DAILY 02/10/17 [History Confirmed 02/15/17] Meloxicam 15 mg [Meloxicam 15 MG] 15 mg PO BIDPRN PRN 02/15/17 [History Confirmed 02/15/17] Allergies/Adverse Reactions: Allergies Allergy/AdvReac Type Severity Reaction Status Date / Time codeine [Codeine] Allergy Severe Verified 02/15/17 11:27 Iodinated Contrast- Oral and Allergy Severe Verified 02/15/17 11:27 IV Dye [IV Dye, Iodine Containing Contrast ] levofloxacin [From Levaquin] Allergy Severe Verified 02/15/17 11:27 oxytetracycline Allergy Severe Verified 02/15/17 11:27 [From Terramycin] oxytetracycline HCl Allergy Severe Verified 02/15/17 11:27 [From Terramycin] Penicillins Allergy Severe Verified 02/15/17 11:27 Sulfa (Sulfonamide Allergy Severe Verified 02/15/17 11:27 Antibiotics) [Sulfa(Sulfonamide Antibiotics)] iodine Allergy Unknown Verified 02/15/17 11:27 - Past Medical History Past Medical History: Yes Neurological History: No Pertinent History ENT History: Cataracts Cardiac History: Hypertension, Myocardial Infarction (ID) Respiratory History: COPD Endocrine Medical History: Diabetes Type II Musculoskelatal History: Arthritis GI Medical History: Cirrhosis, GERD History: No Pertinent History Pyscho-Social History: Depression Reproductive Disorders: No Pertinent History Comment: CHRONIC BACK PAIN, VENITA KNEE PAIN - Female History Hx Last Menstrual Period: post Are you now?: No - Past Surgical History Past Surgical History: Yes Neuro Surgical History: No Pertinent History Cardiac History: Cardiac Catheterization Respiratory Surgery: No Pertinent History GI Surgical History: Appendectomy, Cholecystectomy Genitourinary Surgical Hx: No Pertinent History Musculskeletal Surgical Hx: Other Female Surgical History: Hysterectomy Other Surgical History: rectal surgery, back surgery - Social History Smoking Status: Former smoker Exposure to second hand smoke: No Alcohol: None Drug Use: none - Physical Exam Vital Signs: Vital Signs - 24 hr Temp Pulse Pulse Resp BP Pulse Ox 02/15/17 20:00 98.0 F 54 L 17 110/56 94 L 02/15/17 19:51 59 L 18 95 02/15/17 16:36 20 02/15/17 16:27 54 L 20 95 02/15/17 16:13 98.5 F 54 L 20 94/52 95 02/15/17 15:55 95 02/15/17 15:44 98.5 F 54 L 20 94/52 95 02/15/17 15:39 60 16 107/50 97 02/15/17 15:14 52 L 16 109/64 97 02/15/17 14:46 94 L 02/15/17 14:17 51 L 16 94/56 97 02/15/17 13:54 53 L 20 87/54 97 02/15/17 13:14 54 L 16 73/51 98 02/15/17 12:17 70 16 82/39 95 02/15/17 11:57 97/57 02/15/17 11:47 96 02/15/17 11:45 137 H 20 97/55 96 02/15/17 11:33 138 H 18 100/67 93 L 02/15/17 11:26 138 H 02/15/17 11:18 139 H 18 98/73 94 L Oxygen-Last 24 hours O2 Percentage 2 Liters = 28% O2 Percentage 2 Liters = 28% O2 Percentage 2 Liters = 28% O2 Percentage 2 Liters = 28% O2 Percentage 2 Liters = 28% General Appearance: no apparent distress, alert Neurologic Exam: alert, oriented x 3, cooperative, normal mood/affect, nml cerebellar function, nml station & gait, sensation nml, No motor deficits Eye Exam: PERRL/EOMI, eyes nml inspection Ears, Nose, Throat Exam: normal ENT inspection, TMs normal, pharynx normal, moist mucous membranes Neck Exam: normal inspection, non-tender, supple, full range of motion Respiratory Exam: normal breath sounds, lungs clear, No respiratory distress Cardiovascular Exam: regular rate/rhythm, normal heart sounds, normal peripheral pulses Gastrointestinal/Abdomen Exam: soft, normal bowel sounds, No tenderness, No mass Back Exam: normal inspection, normal range of motion, No CVA tenderness, No vertebral tenderness Extremity Exam: normal inspection, normal range of motion, pelvis stable Skin Exam: normal color, warm, dry, No rash Lymphatic Exam: No adenopathy Results - Labs Lab/Micro Results: Lab Results-Last 24 Hours 02/15/17 Range/Units 18:04 Magnesium 1.7 L (1.8-2.4) mg/dL - Other Procedures and Tests Respiratory Therapy 02/15/17 19:45 Respiratory Nebulizer UD Assessment/Plan (1) Dehydration Current Visit: Yes Status: Acute Code(s): E86.0 - DEHYDRATION (2) Diarrhea Current Visit: Yes Status: Acute Code(s): R19.7 - DIARRHEA, UNSPECIFIED (3) Type 2 diabetes mellitus Current Visit: No Status: Acute Qualifiers: Diabetes mellitus complication status: with hyperglycemia Diabetes mellitus penitentiary insulin use: with termite technician use Qualified Code(s): E11.65 - Type 2 diabetes mellitus with hyperglycemia; Z79.4 - ad terminal makeup operator (current) use of insulin (4) Palpitations Current Visit: No Status: Resolved Code(s): R00.2 - PALPITATIONS
[2017-02-16] MEDS: Sodium Chloride 0.9% 1000 ML 1,000 ML IV SCH ×3 (01:40→21:27)
[2017-02-16 07:21] LABS: Mean Cell Volume 89.8 fl (78-100); Mean Corpuscular Hemoglobin 29.6 pg (26-32); Mean Platelet Volume 10.2 fl (6-9.5); Platelet Count 166 K/mm3 (150-450); Red Blood Count 4.52 M/mm3 (4.1-5.4); Red Cell Distribution Width 14.1 % (11.5-14.0); White Blood Count 8.8 K/mm3 (4.0-10.5)
[2017-02-16 07:32] LABS: ANION GAP 10.9 MEQ/L (5-15); BLOOD UREA NITROGEN 15 mg/dL (9-20); CHLORIDE 111 mEq/L (98-107); Carbon Dioxide 28.7 mEq/L (21-32); Glucose 118 MG/DL (70-110); Potassium 4.4 mEq/L (3.5-5.1); SODIUM 146 mEq/L (136-145)
[2017-02-16] MEDS ORDERED: MEDICATION INTERVENTION MC PRN ×2 (07:34→08:34)
[2017-02-16 08:08] LABS: Eosinophil 3 % (0.00-3.0); Total Cells Counted 100
[2017-02-16 08:10] LABS: ANISOCYTOSIS 2+; Poikilocytosis 1+
[2017-02-16 08:11] LABS: Platelet Estimate NORMAL (NORMAL)
[2017-02-16] MEDS ORDERED: [UNRECOGNIZED DRUG - OTHER] PO SCH (10:00)
[2017-02-16] MEDS ORDERED: NON-FORMULARY ITEM (Omeprazole [Omeprazole] 40 MG) PO SCH (10:00)
[2017-02-16] MEDS ORDERED: ceLEXa 20 MG PO SCH (10:00)
[2017-02-16] MEDS ORDERED: NON-FORMULARY ITEM (Cholecalciferol (Vitamin D3) [Vitamin D] 400 UNIT) PO SCH (10:00)
[2017-02-16] MEDS ORDERED: NON-FORMULARY ITEM (Citalopram Hydrobromide [Citalopram Hbr] 40 MG) PO SCH (10:00)
[2017-02-16] MEDS ORDERED: ECOTRIN 81 MG PO SCH (10:00)
[2017-02-16] MEDS ORDERED: THEO-DUR 200 MG PO SCH (10:00)
[2017-02-16] MEDS: Accupril 10MG Tablet PO SCH (10:31)
[2017-02-16] MEDS: PLAVIX 75 MG Tablet PO SCH (10:31)
[2017-02-16] MEDS: Protonix 40MG Tablet PO SCH (10:31)
[2017-02-16] MEDS: Coreg 6.25 MG PO SCH ×2 (10:31→22:51)
[2017-02-16] MEDS: Vitamin C 500 MG PO SCH (10:32)
[2017-02-16] MEDS: ceLEXa 20 MG PO SCH (10:32)
[2017-02-16] MEDS: Ranexa 500 MG PO SCH (10:32)
[2017-02-16] MEDS: VITAMIN B-12 100 MCG PO SCH (10:33)
[2017-02-16] MEDS: Vitamin E 400 UNIT SOFTGEL PO SCH (10:33)
[2017-02-16] MEDS ORDERED: INSULIN LISPRO SQ SCH (11:30)
[2017-02-16] MEDS ORDERED: Mobic 7.5 MG PO PRN (11:32)
[2017-02-16] MEDS ORDERED: MOTRIN 400 MG PO PRN (11:53)
[2017-02-16] MEDS: NovoLOG Insulin SQ SCH ×3 (12:12→16:30)
[2017-02-16] MEDS: VITAMIN D PO SCH (12:12)
--- NOTE | 2017-02-16 21:48 | PCM.NOTE ---
Date and Time: 02/16/172147 Subjective Assessment: doing better - Review of Systems Constitutional: No Fever, No Chills Eyes: No Symptoms Ears, Nose, & Throat: No Symptoms Respiratory: No Cough, No Short Of Breath Cardiac: No Chest Pain, No Edema, No Syncope Abdominal/Gastrointestinal: Diarrhea, No Abdominal Pain, No Nausea, No Vomiting Genitourinary Symptoms: No Dysuria Musculoskeletal: No Back Pain, No Neck Pain Skin: No Rash Neurological: No Dizziness, No Focal Weakness, No Sensory Changes Psychological: No Symptoms Endocrine: No Symptoms Hematologic/Lymphatic: No Symptoms Immunological/Allergic: No Symptoms Objective Exam General Appearance: no apparent distress, alert Neurologic Exam: alert, oriented x 3, cooperative, normal mood/affect, nml cerebellar function, sensation nml, No motor deficits Skin Exam: normal color, warm, dry Eye Exam: PERRL, EOMI, eyes nml inspection Ears, Nose, Throat Exam: normal ENT inspection, pharynx normal, moist mucous membranes Neck Exam: normal inspection, non-tender, supple, full range of motion Respiratory Exam: normal breath sounds, lungs clear, No respiratory distress Cardiovascular Exam: regular rate/rhythm, normal heart sounds Gastrointestinal/Abdomen Exam: soft, No tenderness, No mass Extremity Exam: normal inspection, normal range of motion Back Exam: normal inspection, normal range of motion, No CVA tenderness, No vertebral tenderness Pelvic Exam: deferred Rectal Exam: deferred OBJECTIVE DATA Vital Signs: Vital Signs - 24 hr Temp Pulse Resp BP Pulse Ox 02/16/17 19:35 98.4 F 63 18 161/73 97 02/16/17 16:00 98.6 F 66 20 143/66 92 L 02/16/17 15:55 92 L 02/16/17 12:20 97.8 F 60 18 149/64 92 L 02/16/17 12:00 18 02/16/17 09:00 60 20 92 L 02/16/17 08:00 19 02/16/17 07:49 97.9 F 61 19 154/70 95 02/16/17 04:00 97.9 F 60 19 141/64 96 02/16/17 00:00 98.0 F 57 L 12 120/55 96 Oxygen-Last 24 hours O2 Percentage 2 Liters = 28% O2 Percentage 2 Liters = 28% O2 Percentage 2 Liters = 28% O2 Percentage 2 Liters = 28% O2 Percentage 2 Liters = 28% Pain Assessment - Last Documented Pain Intensity 4 Pain Scale Used 0-10 Pain Scale Intake and Output: Intake & Output 02/14/17 02/15/17 02/16/17 02/17/17 11:59 11:59 11:59 11:59 Intake Total 2205 2076 Output Total 300 700 Balance 1905 1376 Weight 85.411 kg Lab Results: Accuchecks Date 02/16/17 Date 02/16/17 Date 02/16/17 Time 07:30 Accucheck Value: 99 Accucheck Value: 284 Accucheck Value: 118 Accucheck Value: 232 Lab Results-Last 24 Hours 02/16/17 02/16/17 Range/Units 05:10 05:10 WBC 8.8 (4.0-10.5) K/mm3 RBC 4.52 (4.1-5.4) M/mm3 Hgb 13.4 (12.0-16.0) gm/dl Hct 40.6 (35-47) % MCV 89.8 (78-100) fl MCH 29.6 (26-32) pg MCHC 33.0 (32-36) g/dl RDW 14.1 H (11.5-14.0) % Plt Count 166 (150-450) K/mm3 MPV 10.2 H (6-9.5) fl Segmented Neutrophils 59 (36.0-66.0) % Lymphocytes (Manual) 31 (24-44) % Monocytes (Manual) 7 (0.0-12.0) % Eosinophils (Manual) 3 (0.00-3.0) % Differential Comment ABNORMAL Platelet Estimate NORMAL (NORMAL) Poikilocytosis 1+ Anisocytosis 2+ Sodium 146 H (136-145) mEq/L Potassium 4.4 (3.5-5.1) mEq/L Chloride 111 H (98-107) mEq/L Carbon Dioxide 28.7 (21-32) mEq/L Anion Gap 10.9 (5-15) MEQ/L BUN 15 (9-20) mg/dL Creatinine 0.73 (0.55-1.30) mg/dl Estimated GFR > 60 ML/MIN Glucose 118 H (70-110) MG/DL Calcium 8.6 (8.5-10.1) mg/dL Radiology Exams: Radiology Procedures Category Date Time Status ABDOMEN AND PELVIS W/0 CONTRAS [CT] Routine Exams 02/16/17 17:00 Taken Assessment/Plan (1) Dehydration Current Visit: Yes Status: Resolved Code(s): E86.0 - DEHYDRATION (2) Diarrhea Current Visit: Yes Status: Acute Code(s): R19.7 - DIARRHEA, UNSPECIFIED (3) Type 2 diabetes mellitus Current Visit: No Status: Acute Qualifiers: Diabetes mellitus complication status: with hyperglycemia Diabetes mellitus fdc insulin use: with fdc use Qualified Code(s): E11.65 - Type 2 diabetes mellitus with hyperglycemia; Z79.4 - meterman (current) use of insulin (4) Palpitations Current Visit: Yes Status: Resolved Code(s): R00.2 - PALPITATIONS
[2017-02-16] MEDS: ZOCOR 20MG PO SCH (22:50)
[2017-02-16] MEDS: Mobic 7.5 MG PO SCH (22:51)
[2017-02-16] MEDS: Lantus Insulin SQ SCH (22:53)
[2017-02-16] MEDS: PROVENTIL 2.5 MG/3 ML NEB IH PRN (23:32)
[2017-02-17] MEDS: TYLENOL 325 MG PO PRN ×2 (01:33→12:00)
[2017-02-17] MEDS: Sodium Chloride 0.9% 1000 ML 1,000 ML IV SCH ×3 (07:23→23:21)
--- NOTE | 2017-02-17 07:43 | CONS ---
CONSULT DATE: 02/16/2017 Apparently she was admitted yesterday. She was just made NPO this afternoon. Asked for surgical consult. HISTORY: A 71 year-old female had a cholecystectomy a year or so ago. She has had some loose stools up to five or six loose stools a day. She has some increased upper abdominal pain recently requiring admission to the hospital. She had some atrial fibrillation with rapid ventricular response and ended up being in the hospital. I was asked to see her for a surgical consult standpoint. Loose stools have been a little bit worse since 02/06/2017. She had some nausea, some upper abdominal aches and pains. She had loose stools. No vomiting. No bloody stools. She denies any prior upper endoscopy. She said she had lower endoscopy four or five years ago. She does not recall having any polyps then. PAST MEDICAL HISTORY: Obesity, hypertension, diabetes, reflux, hypercholesterolemia, history of congestive heart failure, atrial fibrillation in the past. She has some chronic obstructive pulmonary disease as well. History of myocardial infarction in the past and arthritis. She said she had some history of some liver problems in the past, chronic back pain, bilateral knee pain and history of depression as well. PAST SURGICAL HISTORY: Appendectomy when she was 18 or 19 years old. She had cholecystectomy last year. She had hysterectomy. She had rectal surgery for some sort of fistula back in 2001. She had back surgery in 1999, I think she said. She had a cardiac cath in the past. She had cataract surgery in the past. MEDICATIONS: Include Albuterol sulfate, ascorbic acid, aspirin, carvedilol, clopidogrel, vitamin B12, Lantus, Accupril, vitamin E, Arik-Dur, Humalog, omeprazole, citalopram, Ranexa, Zocor, vitamin D2. ALLERGIES: CODEINE, IV CONTRAST, LEVAQUIN, TERRAMYCIN, PENICILLIN, SULFA. REVIEW OF SYSTEMS: Twelve systems reviewed per admission assessment. No chest pain or palpitations other systems negative or noncontributory as above and per preadmission questionnaire. PHYSICAL EXAMINATION: She is afebrile. Vital signs stable. GENERAL: No acute distress. HEENT: Sclera nonicteric. NECK: No JVD. CHEST: Equal excursion, nonlabored breathing. CVS: Irregular, irregular. ABDOMEN: Soft, obese, mild tenderness epigastrium upper abdomen. Chronic small fatty umbilical area hernia. Old cholecystectomy incision looked fine. No gross palpable hernias. Bilateral upper quadrant aches and pain there at the site. EXTREMITIES: No significant edema. NEURO: Alert, moving extremities symmetrically. IMPRESSION: History of some loose stools, history of some upper abdominal aches unclear etiology. It could be anything from gastritis, ulcer disease, could be sphincter of Oddi dysfunction versus other issues. I feel she would benefit from CT scan of abdomen and pelvis if she has not had recently. If that is negative likely consider upper endoscopy or even lower endoscopy if upper endoscopy did not show any findings. She might require HIDA with SOD score if upper endoscopy is unremarkable. If all of this fails to elicit etiology she may need GI evaluation for endoscopic ultrasound. Either way no emergent surgery necessary as she is not NPO this afternoon. Therefore leave her NPO after midnight and do a CT of the abdomen and pelvis for further evaluation and then decide. If her CT is unremarkable consider upper endoscopy in the next day or two with myself or one of my partners.
[2017-02-17] MEDS: NovoLOG Insulin SQ SCH ×3 (08:14→17:42)
[2017-02-17] MEDS ORDERED: PROVENTIL 2.5 MG/3 ML NEB IH ONE (08:54)
[2017-02-17] MEDS: PROVENTIL 2.5 MG/3 ML NEB IH PRN ×2 (08:56→22:29)
[2017-02-17] MEDS ORDERED: DIPRIVAN 200 MG/20 ML IV ONE (09:30)
--- NOTE | 2017-02-17 11:25 | OP ---
PROCEDURE DATE/TIME: 02/17/2017 1022 PREOPERATIVE DIAGNOSIS: Abdominal pain. POSTOPERATIVE DIAGNOSES: 1) Moderate gastritis. 2) Small hiatal hernia. PROCEDURE: EGD with biopsy. PROCEDURE PERFORMED BY: Gissel Wade M.D. ESTIMATED BLOOD LOSS: Minimal. ANESTHESIA: MAC. ESTIMATED BLOOD LOSS: Minimal less than 10 cc. COMPLICATIONS: None. SPECIMENS: Antral biopsy and thickened gastric body biopsies. PROCEDURE DETAILS: This is a 71 year-old female who presents to the hospital with abdominal pain. She is having abdominal pain most significantly in her left upper quadrant. She also has had diarrhea symptoms on and off for the past year which have been occurring status post cholecystectomy. The patient rarely has right upper quadrant pain. All risks, benefits, alternatives regarding EGD have been discussed with the patient in detail. She understands. She has been on Plavix. She does understand that she has a slightly higher bleeding risk and she would like to proceed with this procedure while in the hospital. I have reviewed her CT scan results with her also. DESCRIPTION OF PROCEDURE: The patient was then brought back to the endoscopy suite. Anesthesia was induced. She was laid in the left lateral decubitus position. A complete time out was performed. The scope was then inserted into the mouth, oropharynx, down into the esophagus into the stomach and then into the duodenum. Her duodenum was normal. In her stomach she has thickened gastric mucosa most prominently throughout the body of the stomach and it is diffuse involving the entire body of the stomach and it does extend to the cardia. In the antrum, the mucosa is actually slightly less thick but she does have quite thick mucosa which is bumpy throughout. There were a couple slightly more friable areas. I did biopsy these sites. We did antral biopsies as well as multiple gastric body biopsy at the sites with the most inflammation and I sent these to pathology. These were taken with cold forceps and we did watch each site and each site was hemostatic and then we were able to withdrawal the scope. We did have a retroflex view as well and I did not see anything different than what we have already described. As we withdrew the scope back into the esophagus we did suction free the extra air and at the gastroesophageal junction there is a small hiatal hernia approximately 2 cm. There is no significant reflux disease. There is no De La Torre's disease. The scope was then completely withdrawn. The patient tolerated the procedure very well. There were no immediate complications. I have discussed all the results with the family in the postoperative area. The patient is already on Protonix and we will continue this. We will also advance her diet as tolerated to a soft diet and will hold her Plavix for the next three days since we did do biopsies to allow these to remain hemostatic and she will follow up with her surgeon, Dr. Nowak, to discuss the biopsy results as well as to possibly schedule a colonoscopy.
[2017-02-17] MEDS: Ranexa 500 MG PO SCH (11:44)
[2017-02-17] MEDS: Protonix 40MG Tablet PO SCH (11:44)
[2017-02-17] MEDS: ceLEXa 20 MG PO SCH (11:45)
[2017-02-17] MEDS: Vitamin C 500 MG PO SCH (11:45)
[2017-02-17] MEDS: Accupril 10MG Tablet PO SCH (11:45)
[2017-02-17] MEDS: Coreg 6.25 MG PO SCH ×2 (11:45→21:30)
[2017-02-17] MEDS: VITAMIN B-12 100 MCG PO SCH (11:46)
[2017-02-17] MEDS: Mobic 7.5 MG PO SCH ×2 (11:46→21:30)
[2017-02-17] MEDS: VITAMIN D PO SCH (11:47)
[2017-02-17] MEDS: Vitamin E 400 UNIT SOFTGEL PO SCH (11:47)
[2017-02-17] MEDS: Carafate 1 GM PO SCH ×3 (11:54→21:30)
[2017-02-17] MEDS: PLAVIX 75 MG Tablet PO SCH (12:02)
--- NOTE | 2017-02-17 13:10 | XRAY ---
History: CT of the abdomen and pelvis without IV contrast from 02/16/2017. Comparison: CT of the abdomen and pelvis without IV contrast from 01/18/2016. Indication: Abdominal pain, diarrhea, cirrhosis, history of GERD. Technique: Non-IV contrast axial images were obtained through the abdomen and pelvis. Reconstructed coronal and sagittal images were created and reviewed. Oral contrast was given as well. Findings: The lung bases reveal minimal bibasilar atelectatic changes, right greater than left. A focal infiltrate is not seen. The liver appears of unremarkable size. Evaluation is limited without IV contrast, but no gross liver mass or intrahepatic biliary duct distention is seen. The patient has undergone interval cholecystectomy as compared to 01/18/2016. The spleen is of normal size. There are some serpiginous vessels medial to the inferior portion of the spleen in the left upper quadrant which might represent varices. Correlate clinically. The pancreas appears mildly atrophic. The adrenal glands reveal no significant abnormality. The kidneys reveal a subtle punctate calcification within the lower pole of the right kidney on axial image #36. There is also seen on sagittal image #72. This calcification is not well seen on the prior CT study. No other renal calcifications or hydronephrosis is seen. There is a questionable tiny cortical cyst at the lateral aspect of the lower pole of the right kidney on axial image #34. Mild atherosclerotic vascular calcification is seen within the abdominal aorta and iliac arteries. No abdominal aortic aneurysm or abnormal retroperitoneal lymphadenopathy is seen. No free intraperitoneal air is noted. There is a stable fat-containing umbilical hernia along the left edge of the umbilicus measuring 3.5 cm in diameter. No other ventral hernia is seen. Abundant intraperitoneal fat is seen. The appendix is not seen within the right lower quadrant, and I am given history of prior appendectomy. A mild amount of scattered stool is seen within the colon. Incidentally, there is some soft tissue fullness at the level of the distal rectum of uncertain significance. Correlate with digital rectal exam to exclude a mass. I see no bowel obstruction or definite bowel wall thickening. No significant diverticulosis or diverticulitis is seen. The uterus is surgically absent. No enlarged pelvic lymph nodes or free intraperitoneal fluid is seen. The urinary bladder is only minimally distended. No gross abnormality is seen. The pelvic adnexa appear unremarkable. Some small postinflammatory lymph nodes are seen within each groin. The bones reveal evidence of prior L4-S1 posterior surgical fusion with intact hardware in place. There is also evidence of prior bone fusion on each side of midline from L4-S1. Moderate to marked degenerative disc disease is seen at L-1L2. The L2-L3 interspace level appears fairly unremarkable. I note mild multilevel degenerative disc disease throughout the visualized lower thoracic spine. Impression: 1. I note some mild soft tissue fullness within the distal rectum of uncertain significance. Correlate with digital rectal exam to exclude a rectal mass. 2. No other acute process is seen within the abdomen or pelvis. 3. There are some serpiginous vessels seen within the left upper quadrant just medial to the inferior portion of the spleen. These could represent varices. However, I do not see any obvious cirrhotic change of the liver. 4. Mild diffuse atrophic changes of the pancreas and a tiny punctate nonobstructing stone within the lower pole of the right kidney are seen. There is no evidence of acute obstructive uropathy. 5. Stable fat-containing umbilical hernia. 6. Status post cholecystectomy and hysterectomy. I also see evidence of prior L4-S1 posterior surgical and bone fusion. Advanced degenerative changes are seen within the visualized thoracolumbar spine, as discussed above.
--- NOTE | 2017-02-17 19:21 | PCM.NOTE ---
Date and Time: 02/17/171919 Subjective Assessment: s/p EGD, doing better - Review of Systems Constitutional: No Fever, No Chills Eyes: No Symptoms Ears, Nose, & Throat: No Symptoms Respiratory: No Cough, No Short Of Breath Cardiac: No Chest Pain, No Edema, No Syncope Abdominal/Gastrointestinal: No Abdominal Pain, No Nausea, No Vomiting, No Diarrhea Genitourinary Symptoms: No Dysuria Musculoskeletal: No Back Pain, No Neck Pain Skin: No Rash Neurological: No Dizziness, No Focal Weakness, No Sensory Changes Psychological: No Symptoms Endocrine: No Symptoms Hematologic/Lymphatic: No Symptoms Immunological/Allergic: No Symptoms Objective Exam General Appearance: no apparent distress, alert Neurologic Exam: alert, oriented x 3, cooperative, normal mood/affect, nml cerebellar function, sensation nml, No motor deficits Skin Exam: normal color, warm, dry Eye Exam: PERRL, EOMI, eyes nml inspection Ears, Nose, Throat Exam: normal ENT inspection, pharynx normal, moist mucous membranes Neck Exam: normal inspection, non-tender, supple, full range of motion Respiratory Exam: normal breath sounds, lungs clear, No respiratory distress Cardiovascular Exam: regular rate/rhythm, normal heart sounds Gastrointestinal/Abdomen Exam: soft, No tenderness, No mass Extremity Exam: normal inspection, normal range of motion Back Exam: normal inspection, normal range of motion, No CVA tenderness, No vertebral tenderness Pelvic Exam: deferred Rectal Exam: deferred OBJECTIVE DATA Vital Signs: Vital Signs - 24 hr Temp Pulse Resp BP Pulse Ox 02/17/17 16:00 98.2 F 55 L 16 150/65 97 02/17/17 12:00 98.4 F 58 L 16 147/61 94 L 02/17/17 08:56 54 L 18 96 02/17/17 08:53 98.5 F 56 L 20 139/60 96 02/17/17 08:00 18 02/17/17 07:30 98.5 F 56 L 20 139/60 96 02/17/17 04:10 98.0 F 59 L 19 133/59 98 02/16/17 23:51 98.2 F 58 L 19 170/70 96 02/16/17 23:34 57 L 18 97 02/16/17 19:35 98.4 F 63 18 161/73 97 Oxygen-Last 24 hours O2 Percentage 2 Liters = 28% O2 Percentage 2 Liters = 28% O2 Percentage 2 Liters = 28% O2 Percentage 2 Liters = 28% O2 Percentage 2 Liters = 28% O2 Percentage 2 Liters = 28% Pain Assessment - Last Documented Pain Intensity 3 Pain Scale Used 0-10 Pain Scale Intake and Output: Intake & Output 02/15/17 02/16/17 02/17/17 02/18/17 11:59 11:59 11:59 11:59 Intake Total 2205 2896 4136 Output Total 300 1950 3200 Balance 1905 946 936 Weight 85.411 kg 84.504 kg Lab Results: Accuchecks Date 02/17/17 Date 02/17/17 Date 02/17/17 Time 16:30 Time 11:30 Time 07:30 Accucheck Value: 132 Accucheck Value: 132 Accucheck Value: 117 Accucheck Value: 98 Lab Results-Last 24 Hours 02/17/17 02/17/17 Range/Units 01:30 08:13 Hemoglobin A1c 7.8 H (4.5-6.2) Stl C. diff Tox B Gene NEGATIVE (NEGATIVE) C.difficile [id number] PRESUMPTIVE NEGATIVE (NEGATIVE) Radiology Exams: Radiology Procedures Category Date Time Status ABDOMEN AND PELVIS W/0 CONTRAS [CT] Routine Exams 02/16/17 17:00 Completed Multi-Disciplinary Progress Notes: Multi-Disciplinary Progress Notes 02/17/17 11:00 (created 02/17/17 16:47) Case Management Note by Nydia Valdovinos DISCHARGE PLAN REVIEWED WITH PT AND FAMILY. PT REPORTS THAT SHE IS INDEPENDENT WITH ALL ADL'S. PLAN TO RETURN HOME TO PRE EPISODIC LEVEL OF [place]. DISCUSSED [facility] FOR [facility] SUPPORT ON DISCHARGE. PT//FAMILY REPORT THAT THEY WILL NOT BE INTERESTED. DECLINED [facility] NEEDS. WILL CONTINUE TO FOLLOW AND ASSESS FOR ALL DC NEEDS. Initialized on 02/17/17 16:47 - END OF NOTE Assessment/Plan (1) Diarrhea Current Visit: Yes Status: Acute Qualifiers: Diarrhea type: presumed infectious Qualified Code(s): A09 - Infectious gastroenteritis and colitis, unspecified Code(s): R19.7 - DIARRHEA, UNSPECIFIED (2) Dehydration Current Visit: Yes Status: Resolved Code(s): E86.0 - DEHYDRATION (3) Type 2 diabetes mellitus Current Visit: No Status: Acute Qualifiers: Diabetes mellitus complication status: with hyperglycemia Diabetes mellitus intermediate card tender insulin use: with intermediate card tender use Qualified Code(s): E11.65 - Type 2 diabetes mellitus with hyperglycemia; Z79.4 - intermediate (current) use of insulin (4) Palpitations Current Visit: Yes Status: Resolved Code(s): R00.2 - PALPITATIONS
[2017-02-17] MEDS: ZOCOR 20MG PO SCH (21:30)
[2017-02-17] MEDS: Lantus Insulin SQ SCH (21:36)
[2017-02-18] MEDS: Carafate 1 GM PO SCH ×4 (07:57→20:59)
[2017-02-18] MEDS: NovoLOG Insulin SQ SCH ×3 (07:58→16:34)
[2017-02-18] MEDS: Coreg 6.25 MG PO SCH ×2 (09:22→20:59)
[2017-02-18] MEDS: Ranexa 500 MG PO SCH (09:22)
[2017-02-18] MEDS: Accupril 10MG Tablet PO SCH (09:22)
[2017-02-18] MEDS: Protonix 40MG Tablet PO SCH (09:22)
[2017-02-18] MEDS: ceLEXa 20 MG PO SCH (09:22)
[2017-02-18] MEDS: Sodium Chloride 0.9% 1000 ML 1,000 ML IV SCH ×2 (09:23→19:25)
[2017-02-18] MEDS: VITAMIN B-12 100 MCG PO SCH (09:23)
[2017-02-18] MEDS: Vitamin C 500 MG PO SCH (09:23)
[2017-02-18] MEDS: Vitamin E 400 UNIT SOFTGEL PO SCH (09:23)
[2017-02-18] MEDS: Mobic 7.5 MG PO SCH ×2 (09:23→20:59)
[2017-02-18] MEDS: VITAMIN D PO SCH (09:23)
--- NOTE | 2017-02-18 12:07 | PCM.NOTE ---
Date and Time: 02/18/17 1206 Subjective Assessment: c/o nausea and vomiting - Review of Systems Constitutional: No Fever, No Chills Eyes: No Symptoms Ears, Nose, & Throat: No Symptoms Respiratory: No Cough, No Short Of Breath Cardiac: No Chest Pain, No Edema, No Syncope Abdominal/Gastrointestinal: Abdominal Pain, Nausea, Vomiting, No Diarrhea Genitourinary Symptoms: No Dysuria Musculoskeletal: No Back Pain, No Neck Pain Skin: No Rash Neurological: No Dizziness, No Focal Weakness, No Sensory Changes Psychological: No Symptoms Endocrine: No Symptoms Hematologic/Lymphatic: No Symptoms Immunological/Allergic: No Symptoms Objective Exam General Appearance: no apparent distress, alert Neurologic Exam: alert, oriented x 3, cooperative, normal mood/affect, nml cerebellar function, sensation nml, No motor deficits Skin Exam: normal color, warm, dry Eye Exam: PERRL, EOMI, eyes nml inspection Ears, Nose, Throat Exam: normal ENT inspection, pharynx normal, moist mucous membranes Neck Exam: normal inspection, non-tender, supple, full range of motion Respiratory Exam: normal breath sounds, lungs clear, No respiratory distress Cardiovascular Exam: regular rate/rhythm, normal heart sounds Gastrointestinal/Abdomen Exam: soft, No tenderness, No mass Extremity Exam: normal inspection, normal range of motion Back Exam: normal inspection, normal range of motion, No CVA tenderness, No vertebral tenderness Pelvic Exam: deferred Rectal Exam: deferred OBJECTIVE DATA Vital Signs: Vital Signs - 24 hr Temp Pulse Resp BP Pulse Ox 02/18/17 11:32 98.6 F 59 L 20 153/66 93 L 02/18/17 08:25 18 02/18/17 08:12 93 L 02/18/17 08:02 56 L 18 97 02/18/17 08:00 97.9 F 55 L 18 159/68 97 02/18/17 04:00 97.7 F 59 L 21 133/69 94 L 02/18/17 00:00 98.3 F 71 20 143/67 94 L 02/17/17 23:00 94 L 02/17/17 22:31 69 24 96 02/17/17 20:01 52 L 18 97 02/17/17 20:00 98.8 F 59 L 21 176/81 94 L 02/17/17 16:00 98.2 F 55 L 16 150/65 97 Oxygen-Last 24 hours O2 Percentage 2 Liters = 28% O2 Percentage 2 Liters = 28% O2 Percentage 2 Liters = 28% O2 Percentage 2 Liters = 28% O2 Percentage 2 Liters = 28% Pain Assessment - Last Documented Pain Intensity 3 Pain Scale Used 0-10 Pain Scale Intake and Output: Intake & Output 02/16/17 02/17/17 02/18/17 02/19/17 11:59 11:59 11:59 11:59 Intake Total 2205 2896 7120 Output Total 300 1950 8200 Balance 1905 946 -1080 Weight 85.411 kg 84.504 kg 85.729 kg Lab Results: Accuchecks Date 02/18/17 Date 02/17/17 Time 07:30 Time 16:30 Accucheck Value: 99 Accucheck Value: 106 Accucheck Value: 132 Lab Results-Last 24 Hours 02/17/17 Range/Units 08:13 Hemoglobin A1c 7.8 H (4.5-6.2) Radiology Exams: Radiology Procedures Category Date Time Status ABDOMEN AND PELVIS W/0 CONTRAS [CT] Routine Exams 02/16/17 17:00 Completed Multi-Disciplinary Progress Notes: Multi-Disciplinary Progress Notes 02/17/17 21:19 RT Documentation Review by Joycelyn Castaneda RT Interventions/Assessments/Treatments Oxygen NASAL CANNULA 2 lpm Start: 02/15/17 15: 55 Freq: Status: Active Document 02/17/17 08:56 (Rec: 02/17/17 09:02 [email or web address]) Respiratory Assessment-RT RT Evaluation-RT Re-Evaluation Respiratory Treatment Given-RT Yes Date-RT 02/17/17 Time-RT 08:56 Diagnosis-RT A-FIB , DEHYDRATION, DIARRHEA Pulmonary History-RT COPD, ASTHMA Home Respiratory Medications and Oxygen- ALBUTEROL NEBS PRN RT THEOPHYLLINE NO HOME OXYGEN Indications for O2 Therapy-RT Chest Pain O2 Delivery Nasal Cannula Oxygen Flow Rate-RT (L/min) 2 Fraction of Inspired Oxygen (FIO2)-RT 28 O2 Sat by Pulse Oximetry (95-100) 96 Resting Yes Pulse Rate (60-90 beats/min) 54 Respiratory Rate (12-24 breaths/min) 18 Respiratory Effort-RT Easy Bronchodilator Indications-RT MD Order Respiratory Treatment Method-RT Nebulizer Mouthpiece Nebulizer Medication Type-RT Albuterol 2.5 mg Respiratory Treatment Tolerance-RT Excellent Anterior Bilateral Throughout Phase Inspiratory & Expiratory Breath Sounds-RT Clear Diminished Cough Description-RT None Sputum Amount None Mental Status-RT Alert Last Chest X-Ray Results-RT 02/15/17: Impression: 1. Mildly hypoinflated chest. Otherwise, no acute cardiopulmonary disease is seen. Respiratory Symptoms-RT No Difficulties Continue Therapy as Ordered-RT Yes Goals-RT Keep Oxygenation > 92% Will Reassess Daily Document 02/17/17 20:01 ST (Rec: 02/17/17 20:04 ST [email or web address]) Respiratory Nebulizer Treatment-RT Start: 02/15/17 19: 45 Freq: UD Status: Active Document 02/17/17 08:56 SH (Rec: 02/17/17 09:02 SH [email or web address]) Document 02/17/17 20:01 ST (Rec: 02/17/17 20:04 ST [email or web address]) Respiratory Assessment-RT Respiratory Treatment Given-RT No Date-RT 02/17/17 Time-RT 19:55 O2 Delivery Nasal Cannula Oxygen Flow Rate-RT (L/min) 2 Fraction of Inspired Oxygen (FIO2)-RT 28 O2 Sat by Pulse Oximetry (95-100) 97 Resting Yes Pulse Rate (60-90 beats/min) 52 Respiratory Rate (12-24 breaths/min) 18 Respiratory Effort-RT Easy Comment-RT TREATMENT NOT NEEDED AT THIS TIME Mental Status-RT Alert Respiratory Symptoms-RT No Difficulties Continue Therapy as Ordered-RT Yes Goals-RT Keep Oxygenation > 92% Will Reassess Daily Respiratory Assessments/Treatments reviewed by Joycelyn Castaneda on 02/17/17 at 2119. Initialized on 02/17/17 21:19 - END OF NOTE Assessment/Plan (1) Diarrhea Current Visit: Yes Status: Acute Qualifiers: Diarrhea type: presumed infectious Qualified Code(s): A09 - Infectious gastroenteritis and colitis, unspecified Code(s): R19.7 - DIARRHEA, UNSPECIFIED (2) Dehydration Current Visit: Yes Status: Resolved Code(s): E86.0 - DEHYDRATION (3) Type 2 diabetes mellitus Current Visit: No Status: Acute Qualifiers: Diabetes mellitus complication status: with hyperglycemia Diabetes mellitus mcc insulin use: with manager terminal use Qualified Code(s): E11.65 - Type 2 diabetes mellitus with hyperglycemia; Z79.4 - skilled nursing (current) use of insulin (4) Palpitations Current Visit: Yes Status: Resolved Code(s): R00.2 - PALPITATIONS
[2017-02-18] MEDS: TYLENOL 325 MG PO PRN (13:09)
[2017-02-18] MEDS ORDERED: PROTONIX 40 MG IV IV SCH (14:00)
[2017-02-18] MEDS: PROVENTIL 2.5 MG/3 ML NEB IH PRN (19:31)
[2017-02-18] MEDS: ZOCOR 20MG PO SCH (20:59)
[2017-02-18] MEDS: Pepcid 20 MG VIAL IV SCH (21:06)
[2017-02-18] MEDS: Lantus Insulin SQ SCH (22:51)
[2017-02-19] MEDS: Sodium Chloride 0.9% 1000 ML 1,000 ML IV SCH (05:01)
[2017-02-19 05:06] VITALS: PULSE 61
[2017-02-19] MEDS: NovoLOG Insulin SQ SCH (08:22)
[2017-02-19] MEDS: Carafate 1 GM PO SCH (08:22)
[2017-02-19 08:26] VITALS: BP 190/90; O2SAT 92
--- NOTE | 2017-02-19 08:49 | PCM.DS ---
Discharge Summary Date of Admission: 02/15/17 15:43 Admitting Physician: RENETTA EPSTEIN Consults: Consults on Case 02/16/17 13:15 Consult Surgery Primary Care Provider: RENETTA EPSTEIN Allergies Allergies codeine [Codeine] Allergy (Severe, Verified 02/15/17 11:27) Iodinated Contrast- Oral and IV Dye [IV Dye, Iodine Containing Contrast ] Allergy (Severe, Verified 02/15/17 11:27) levofloxacin [From Levaquin] Allergy (Severe, Verified 02/15/17 11:27) oxytetracycline [From Terramycin] Allergy (Severe, Verified 02/15/17 11:27) oxytetracycline HCl [From Terramycin] Allergy (Severe, Verified 02/15/17 11:27) Penicillins Allergy (Severe, Verified 02/15/17 11:27) Sulfa (Sulfonamide Antibiotics) [Sulfa(Sulfonamide Antibiotics)] Allergy (Severe , Verified 02/15/17 11:27) iodine Allergy (Unknown, Verified 02/15/17 11:27) Hospital Summary - Hospital Course Hospital Course: Chief Complaint Diagnosis atrial fib with RVR, diarrhea, dehydraion Allergies Allergy/AdvReac Type Severity Reaction Status Date / Time codeine [Codeine] Allergy Severe Verified 02/15/17 11:27 Iodinated Contrast- Oral and Allergy Severe Verified 02/15/17 11:27 IV Dye [IV Dye, Iodine Containing Contrast ] levofloxacin [From Levaquin] Allergy Severe Verified 02/15/17 11:27 oxytetracycline Allergy Severe Verified 02/15/17 11:27 [From Terramycin] oxytetracycline HCl Allergy Severe Verified 02/15/17 11:27 [From Terramycin] Penicillins Allergy Severe Verified 02/15/17 11:27 Sulfa (Sulfonamide Allergy Severe Verified 02/15/17 11:27 Antibiotics) [Sulfa(Sulfonamide Antibiotics)] iodine Allergy Unknown Verified 02/15/17 11:27 Vital Signs (Last 24 hours) Temp Pulse Resp BP Pulse Ox 02/19/17 08:00 98.4 F 61 19 190/90 92 L 02/19/17 07:09 93 L 02/19/17 04:00 98.3 F 61 20 166/74 93 L 02/19/17 00:04 98.3 F 56 L 20 172/83 94 L 02/18/17 23:00 94 L 02/18/17 20:00 98.5 F 61 20 178/77 91 L 02/18/17 19:35 58 L 20 91 L 02/18/17 16:00 98.6 F 02/18/17 12:00 20 02/18/17 11:32 98.6 F 59 L 20 153/66 93 L Home Medications Medication Instructions Recorded Confirmed Last Taken Type Meloxicam 7.5 mg [Mobic 7.5 7.5 mg PO BID 02/16/17 02/16/17 Unknown History MG] Current Medications Generic Name Dose Route Start Last Admin Trade Name Freq PRN Reason Stop Dose Admin Acetaminophen 650 mg 02/17/17 01:29 02/18/17 13:09 Tylenol 325 Mg PO 03/19/17 01:28 650 mg Q6H PRN PRN Administration PAIN AND/OR FEVER Albuterol Sulfate 2.5 mg 02/15/17 19:45 02/18/17 19:31 Proventil 2.5 Mg/3 Ml Neb IH 03/17/17 19:44 2.5 mg Q4H PRN PRN Administration SHORTNESS OF BREATH/WHEEZING Ascorbic Acid 500 mg 02/16/17 10:00 02/18/17 09:23 Vitamin C 500 Mg PO 03/18/17 09:59 500 mg DAILY SONAL Administration Carvedilol 6.25 mg 02/15/17 22:00 02/18/17 20:59 Coreg 6.25 Mg PO 03/17/17 21:59 6.25 mg BID SONAL Administration Cholecalciferol 400 unit 02/16/17 10:00 02/18/17 09:23 Vitamin D PO 03/18/17 09:59 400 unit DAILY SONAL Administration Citalopram Hydrobromide 40 mg 02/16/17 10:30 02/18/17 09:22 Celexa 20 Mg PO 03/18/17 09:59 40 mg QAM SONAL Administration Cyanocobalamin 100 mcg 02/16/17 10:00 02/18/17 09:23 Vitamin B-12 100 Mcg PO 03/18/17 09:59 100 mcg DAILY SONAL Administration Famotidine 20 mg 02/18/17 22:00 07/13/17 21:06 Pepcid 20 Mg Vial IV 03/20/17 21:59 Not Given Q12HT SONAL Sodium Chloride 1,000 mls @ 100 mls/hr 02/15/17 15:55 02/19/17 05:01 Sodium Chloride 0.9% 1000 Ml IV 03/17/17 15:54 100 mls/hr .Q10H SONAL Administration Insulin Aspart 23 unit 02/16/17 11:30 02/19/17 08:22 Novolog Insulin SQ 03/18/17 11:29 Not Given TIDAC SONAL Insulin Glargine 20 unit 02/15/17 22:00 02/18/17 22:51 Lantus Insulin SQ 03/17/17 21:59 20 unit HS SONAL Administration Meloxicam 7.5 mg 02/16/17 22:00 02/18/17 20:59 Mobic 7.5 Mg PO 03/18/17 11:31 7.5 mg BID SONAL Administration Pantoprazole Sodium 40 mg 02/18/17 14:00 02/18/17 14:29 Protonix 40 Mg Iv IV 03/20/17 13:59 40 mg Q24H SONAL Administration Quinapril HCl 20 mg 02/16/17 10:00 02/18/17 09:22 Accupril 10mg Tablet PO 03/18/17 09:59 20 mg DAILY SONAL Administration Ranolazine 500 mg 02/16/17 10:00 02/18/17 09:22 Ranexa 500 Mg PO 03/18/17 09:59 500 mg DAILY SONAL Administration Simvastatin 80 mg 02/15/17 22:00 02/18/17 20:59 Zocor 20mg PO 03/17/17 21:59 80 mg HS SONAL Administration Sucralfate 1 g 02/17/17 11:45 02/19/17 08:22 Carafate 1 Gm PO 03/19/17 11:44 1 g ACHS SONAL Administration Vitamin E 400 u 02/16/17 10:00 02/18/17 09:23 Vitamin E 400 Unit Softgel PO 03/18/17 09:59 400 u DAILY SONAL Administration Discontinued Medications Generic Name Dose Route Start Last Admin Trade Name Freq PRN Reason Stop Dose Admin Albuterol Sulfate Confirm 02/17/17 08:54 Proventil 2.5 Mg/3 Ml Neb Administered 02/17/17 08:55 Dose 2.5 mg IH .STK-MED ONE Aspirin 81 mg 02/16/17 10:00 02/16/17 10:31 Ecotrin 81 Mg PO 03/18/17 09:59 81 mg DAILY SONAL Administration Citalopram Hydrobromide 50 mg 02/16/17 10:00 Celexa 20 Mg PO 03/18/17 09:59 QAM SONAL Clopidogrel Bisulfate 75 mg 02/16/17 10:00 02/17/17 12:02 Plavix 75 Mg Tablet PO 03/18/17 09:59 Not Given DAILY SONAL Diltiazem HCl 15 mg 02/15/17 11:34 02/15/17 12:18 Cardizem Iv 50 Mg/10 Ml IV 02/15/17 11:35 15 mg STAT ONE Administration Diltiazem HCl Confirm 02/15/17 11:42 Cardizem Iv 50 Mg/10 Ml Administered 02/15/17 11:43 Dose 50 mg IV .STK-MED ONE Sodium Chloride Confirm 02/15/17 11:34 Sodium Chloride 0.9% 1000 Ml Administered 02/15/17 11:35 Dose 1,000 mls @ ud .ROUTE .STK-MED ONE Sodium Chloride 1,000 mls @ 100 mls/hr 02/15/17 11:45 02/15/17 12:18 Sodium Chloride 0.9% 1000 Ml IV 03/17/17 11:44 100 mls/hr .Q10H SONAL Administration Sodium Chloride 1,000 mls @ 999 mls/hr 02/15/17 12:46 02/15/17 12:47 Sodium Chloride 0.9% 1000 Ml IV 02/15/17 13:46 999 mls/hr .Q1H1M STA Administration Sodium Chloride 1,000 mls @ 100 mls/hr 02/15/17 14:45 02/15/17 14:50 Sodium Chloride 0.9% 1000 Ml IV 03/17/17 14:44 100 mls/hr .Q10H SONAL Administration Magnesium Sulfate/Dextrose Confirm 02/15/17 14:43 Magnesium 1 Gm / 100 Ml D5w Administered 02/15/17 14:44 Dose 100 mls @ ud IV .STK-MED ONE Magnesium Sulfate/Dextrose 100 mls @ 200 mls/hr 02/15/17 14:44 02/15/17 14:49 Magnesium 1 Gm / 100 Ml D5w IV 02/15/17 15:13 200 mls/hr STAT ONE Administration Ibuprofen 400 mg 02/16/17 11:53 Motrin 400 Mg PO 03/18/17 11:52 TIDP PRN PAIN Magnesium Sulfate 1 gm 02/15/17 14:37 02/15/17 15:13 Magnesium Sulfate 1 Gm/2 Ml Vial IV 02/15/17 14:38 Not Given ONCE STA Meloxicam 7.5 mg 02/16/17 11:32 02/16/17 11:39 Mobic 7.5 Mg PO 03/18/17 11:31 7.5 mg BID PRN PRN Administration Midazolam HCl 2 mg 02/15/17 09:00 Versed 2 Mg/2 Ml Injection IV 02/15/17 09:01 .STK-MED ONE Ondansetron HCl 4 mg 02/15/17 11:32 02/15/17 12:18 Zofran 4 Mg/2 Ml Vial IV 02/15/17 11:33 4 mg STAT ONE Administration Ondansetron HCl Confirm 02/15/17 11:39 Zofran 4 Mg/2 Ml Vial Administered 02/15/17 11:40 Dose 4 mg .ROUTE .STK-MED ONE Pantoprazole Sodium 80 mg 02/16/17 10:00 02/18/17 09:22 Protonix 40mg Tablet PO 03/18/17 09:59 80 mg DAILY SONAL Administration Propofol 200 mg 02/17/17 09:30 Diprivan 200 Mg/20 Ml IV 02/17/17 09:31 .STK-MED ONE Intake & Output (Last 24 hours) 02/16/17 02/17/17 02/18/17 02/19/17 11:59 11:59 11:59 11:59 Intake Total 4205 2896 7120 4726 Output Total 1800 1950 8200 6200 Balance 2404 759 -8707 -6628 Weight 85.411 kg 84.504 kg 85.729 kg Microbiology Results (Last 24 hours) 02/17/17 01:30 Stool Stool Culture - Preliminary Orders (Last 24 hours) Category Date Time Status Soft Diet Diet 02/18/17 Dinner Active Famotidine 20 mg Vial [Pepcid 20 MG VIAL] Med 02/18/17 22:00 Active 20 mg IV Q12HT Pantoprazole 40 mg [Protonix 40 mg IV] Med 02/18/17 14:00 Active 40 mg IV Q24H - Vitals & Intake/Output Vital Signs: Vital Signs Temperature 98.4 F 02/19/17 08:00 Pulse Rate 61 02/19/17 08:00 Respiratory Rate 19 02/19/17 08:00 Blood Pressure 190/90 02/19/17 08:00 O2 Sat by Pulse Oximetry 92 L 02/19/17 08:00 Oxygen-Last Documented O2 Percentage 2 Liters = 28% Intake & Output: Intake & Output 02/16/17 02/17/17 02/18/17 02/19/17 11:59 11:59 11:59 11:59 Intake Total 2205 2896 7120 4726 Output Total 300 1950 8200 6200 Balance 1905 091 -2616 -6919 Weight 85.411 kg 84.504 kg 85.729 kg - Lab Result Diagrams: 02/16/17 05:10 02/16/17 05:10 Lab Results-Last 24 Hrs: Accuchecks Date 02/18/1702/18/17 Time 16:30 Time 11:30 Accucheck Value: 256 Accucheck Value: 64 Accucheck Value: 325 Micro Results-Entire Visit: Microbiology 02/17/17 01:30 Stool Culture - Preliminary Stool Accuchecks Date 02/18/1702/18/17 Time 16:30 Time 11:30 Accucheck Value: 256 Accucheck Value: 64 Accucheck Value: 325 - Procedures and Test Procedures and Tests throughout Hospitalization: Therapy Orders & Screens 02/15/17 16:36 OT Screen per Nursing Assess Comment: Protocol Order Physician Instructions: Greater than 3 points order OT Admission Screening Reason For Exam: Triggered on Admission Diagnosis: atrial fib with RVR, diarrhea, dehydraion Open Wound/Cellutlitis/Pressure Ulcers: Yes Acute Fx/ORIF/Change in wt bearing status: No Severe MUSCULOSKELETAL pain: No ADL Dysfunction: No Acute CVA w/Hemiparesis/Hemiplegia: No Decreased Functional Mobility/Strength: No Sprain/Strain: No Acute Post-op Mobility Dysfunction: No Total Points: 5 PT Screen per Nursing Assess Comment: Protocol Order Physician Instructions: Greater than 3 points order PT Admission Screenin Reason For Exam: Triggered on Admission Diagnosis: atrial fib with RVR, diarrhea, dehydraion Open Wound/Cellutlitis/Pressure Ulcers: Yes Acute Fx/ORIF/Change in wt bearing status: No Severe MUSCULOSKELETAL pain: No ADL Dysfunction: No Acute CVA w/Hemiparesis/Hemiplegia: No Decreased Functional Mobility/Strength: No Sprain/Strain: No Acute Post-op Mobility Dysfunction: No Total Points: 5 02/15/17 19:45 Respiratory Nebulizer UD Comment: albuterol q4prn Diagnosis: atrial fib with RVR, diarrhea, dehydraion Discharge Exam General Appearance: no apparent distress, alert Neurologic Exam: alert, oriented x 3, cooperative, normal mood/affect, nml cerebellar function, sensation nml, No motor deficits Skin Exam: normal color, warm, dry Eye Exam: PERRL, EOMI, eyes nml inspection Ears, Nose, Throat Exam: normal ENT inspection, pharynx normal, moist mucous membranes Neck Exam: normal inspection, non-tender, supple, full range of motion Respiratory Exam: normal breath sounds, lungs clear, No respiratory distress Cardiovascular Exam: regular rate/rhythm, normal heart sounds Gastrointestinal/Abdomen Exam: soft, No tenderness, No mass Extremity Exam: normal inspection, normal range of motion Back Exam: normal inspection, normal range of motion, No CVA tenderness, No vertebral tenderness Pelvic Exam: deferred Rectal Exam: deferred Final Diagnosis/Problem List - Final Discharge Diagnosis/Problem (1) Diarrhea Current Visit: Yes Status: Resolved (2) Dehydration Current Visit: Yes Status: Resolved (3) Type 2 diabetes mellitus Current Visit: No Status: Acute (4) Palpitations Current Visit: Yes Status: Resolved (5) Gastritis Current Visit: Yes Status: Acute - Discharge Discharge Date: 02/19/17 Disposition: Home, Self-Care Condition: Stable Prescriptions: No Action Vitamin E Acid Succinate [Vitamin E] 200 unit PO DAILY Ascorbic Acid 500 mg [Vitamin C 500 MG] 500 mg PO DAILY Cyanocobalamin (Vitamin B-12) [Vitamin B-12] 100 mcg PO DAILY Clopidogrel Bisulfate 75 mg [PLAVIX 75 MG Tablet] 75 mg PO DAILY Albuterol Sulfate 1 vial NEB UD PRN PRN Reason: wheezes Insulin Glargine,Hum.rec.anlog [Lantus] 20 unit SQ HS Carvedilol 6.25 mg [Coreg 6.25 MG] 6.25 mg PO BID Theophylline Anhydrous 200 mg* [Arik-Dur 200 mg] 200 mg PO TID Quinapril HCl 10 mg [Accupril 10MG Tablet] 20 mg PO DAILY Aspirin [Aspir 81] 81 mg PO DAILY Omeprazole 40 mg PO DAILY Insulin Lispro [Humalog] 23 units SQ AC Ranolazine 500 MG [Ranexa 500 MG] 1 tab PO DAILY Simvastatin 40 mg [Zocor 40 mg] 80 mg PO HS Citalopram Hydrobromide [Citalopram HBr] 40 mg PO DAILY Cholecalciferol (Vitamin D3) [Vitamin D] 0 unit PO DAILY Meloxicam 7.5 mg [Mobic 7.5 MG] 7.5 mg PO BID Follow up with: JERMAIN BLUM MD [NON-STAFF PHY W/O PRIVILEGES] - 1 Week RENETTA EPSTEIN MD [Primary Care Provider] -
[2017-02-19] MEDS: Vitamin E 400 UNIT SOFTGEL PO SCH (08:57)
[2017-02-19] MEDS: VITAMIN B-12 100 MCG PO SCH (08:57)
[2017-02-19] MEDS: Ranexa 500 MG PO SCH (08:57)
[2017-02-19] MEDS: VITAMIN D PO SCH (08:58)
[2017-02-19] MEDS: Mobic 7.5 MG PO SCH (08:58)
[2017-02-19] MEDS: Coreg 6.25 MG PO SCH (08:58)
[2017-02-19] MEDS: Vitamin C 500 MG PO SCH (08:58)
[2017-02-19] MEDS: Accupril 10MG Tablet PO SCH (08:58)
[2017-02-19] MEDS: ceLEXa 20 MG PO SCH (08:58)
[2017-02-19] MEDS: TYLENOL 325 MG PO PRN (08:58)
[2017-02-19] MEDS: Pepcid 20 MG VIAL IV SCH (09:01)
[2017-02-19] MEDS ORDERED: Accupril 10MG Tablet PO SCH (09:15)
== END 2017-02-19 11:23 | disposition home or self-care (01) ==
LOC: ED 11:18 → MED SURG 15:43
PROVIDERS: ADMIT General Practice; ATTEND General Practice
PROC: 0DB68ZX Excision of Stomach, Via Natural or Artificial Opening Endoscopic, Diagnostic (ICD-10-PCS; principal; 2017-02-17)
PROC: 0DB78ZX Excision of Stomach, Pylorus, Via Natural or Artificial Opening Endoscopic, Diagnostic (ICD-10-PCS; 2017-02-17)
DX: R19.7 Diarrhea, unspecified (principal); E86.0 Dehydration; E11.65 Type 2 diabetes mellitus with hyperglycemia; Z79.4 Long term (current) use of insulin; R00.2 Palpitations; K29.70 Gastritis, unspecified, without bleeding; I48.91 Unspecified atrial fibrillation; I10 Essential (primary) hypertension; I50.9 Heart failure, unspecified; R10.12 Left upper quadrant pain; J44.9 Chronic obstructive pulmonary disease, unspecified; M19.90 Unspecified osteoarthritis, unspecified site; K44.9 Diaphragmatic hernia without obstruction or gangrene; I25.2 Old myocardial infarction; F32.9 Major depressive disorder, single episode, unspecified
CPT/HCPCS: 00740; 36000; 36415; 71010; 74000; 74176; 80048; 80053; 82962; 83036; 83605; 83735; 84484; 85025; 87040; 87045; 87046; 87335; 87493; 88305; 93005; 93041; 93268; 94640; 94760; 96360; 96361; 96365; 96374; 96375; 99100; 99285; G0378; J2250; J2405; J2704; J3475; A9270-GY

== ENCOUNTER 2017-04-03 13:25 | Emergency (ER) | payer MEDICARE, SELFPAY ==
[2017-04-03] MEDS ORDERED: Sodium Chloride 0.9% 1000 ML 0 ML ONE (13:44)
[2017-04-03] MEDS ORDERED: Adenocard IV 6 MG/2 ML IV ONE ×2 (13:45→13:50)
[2017-04-03] MEDS ORDERED: Sodium Chloride 0.9% 1000 ML 1,000 ML IV SCH (13:45)
[2017-04-03] MEDS ORDERED: Sodium Chloride 0.9% 1000 ML 1,000 ML IV STA (13:45)
[2017-04-03] MEDS ORDERED: Sodium Chloride 0.9% 1000 ML 1,000 ML ONE (13:50)
[2017-04-03 13:54] LABS: Mean Cell Volume 86.6 fl (78-100); Mean Platelet Volume 9.7 fl (6-9.5); Platelet Count 249 K/mm3 (150-450); Red Blood Count 5.54 M/mm3 (4.1-5.4); Red Cell Distribution Width 14.4 % (11.5-14.0)
[2017-04-03 13:55] LABS: Mean Corpuscular Hemoglobin 29.7 pg (26-32)
[2017-04-03] MEDS ORDERED: Cardizem IV 50 MG/10 ML IV ONE (14:01)
[2017-04-03 14:11] LABS: INR 1.01 (0.8-3.0); PROTIME 11.4 SECONDS (9.95-12.35)
[2017-04-03] MEDS ORDERED: Magnesium 1 Gm / 100 Ml D5W*** 100 ML IV ONE ×2 (14:11→14:21)
[2017-04-03 14:13] LABS: PTT 36.4 SECONDS (25.3-37.0)
[2017-04-03] MEDS: Magnesium 1 Gm / 100 Ml D5W*** 100 ML IV SCH ×2 (14:19→15:34)
[2017-04-03 14:20] LABS: Eosinophil 5 % (0.00-3.0); Platelet Estimate NORMAL (NORMAL); Total Cells Counted 100
[2017-04-03 14:23] LABS: ALBUMIN 3.7 g/dL (3.4-5.0); ALKALINE PHOSPHATASE 79 U/L (46-116); ANION GAP 13.1 MEQ/L (5-15); BLOOD UREA NITROGEN 22 mg/dL (9-20); CHLORIDE 104 mEq/L (98-107); Glucose 281 MG/DL (70-110); MAGNESIUM 1.4 mg/dL (1.8-2.4); Potassium 4.2 mEq/L (3.5-5.1); SGOT/AST 25 U/L (15-37); SGPT/ALT 23 U/L (12-78); SODIUM 142 mEq/L (136-145); THEOPHYLLINE 17.4 ug/ml (10-20.0); TROPONIN < 0.017 ng/ml (0.000-0.056); Total Protein 6.8 gm/dL (6.4-8.2)
--- NOTE | 2017-04-03 14:50 | ERPHSYRPT ---
- History of Present Illness Time Seen by Provider: 04/03/17 13:36 Source: patient Patient Subjective Stated Complaint: SOB AND HEART PALPITATIONS SINCE NOON Triage Nursing Assessment: STATES LAYING IN BED AT NOON HAD LT SIDE PINPOINT CP AND 'HEART RACING AND MY A FIB ACTING UP' C/O SOB AND GENERALIZED WEAKNESS. ON ARRIVAL, 4-5 WORD SENTENCES. SKIN WARM AND DRY. C/O LT PINPOINT CP. PT STATES SHE THINKS SHE HAS HAD BRONCHITIS--HAS APPT WITH [facility] ON WEDNESDAY Physician History: CC: palpitations Hx: 71 y/o patient of Dr Cooper/Lucia. She has hx of palpitations in the past. She was in bed at 11AM today and awoke with palpitations, heart racing, chest heaviness, nausea. She drank some water this AM but has not eaten as yet. No fever or chills. She takes medication but uncertain as to the names. She is on arik. Nonsmoker. Aspirin Treatment Today: 81 mg x 1 (this aM), provided at home Allergies/Adverse Reactions: codeine [Codeine] Allergy (Severe, Verified 04/03/17 13:39) Iodinated Contrast- Oral and IV Dye [IV Dye, Iodine Containing Contrast ] Allergy (Severe, Verified 04/03/17 13:39) levofloxacin [From Levaquin] Allergy (Severe, Verified 04/03/17 13:39) oxytetracycline [From Terramycin] Allergy (Severe, Verified 04/03/17 13:39) oxytetracycline HCl [From Terramycin] Allergy (Severe, Verified 04/03/17 13:39) Penicillins Allergy (Severe, Verified 04/03/17 13:39) Sulfa (Sulfonamide Antibiotics) [Sulfa(Sulfonamide Antibiotics)] Allergy (Severe , Verified 04/03/17 13:39) iodine Allergy (Unknown, Verified 04/03/17 13:39) Home Medications: Albuterol Sulfate 1 vial NEB UD PRN 07/18/12 [History] Ascorbic Acid 500 mg [Vitamin C 500 MG] 500 mg PO DAILY 07/18/12 [History] Aspirin [Aspir 81] 81 mg PO DAILY 07/18/12 [History] Carvedilol 6.25 mg [Coreg 6.25 MG] 6.25 mg PO BID 07/18/12 [History] Clopidogrel Bisulfate 75 mg [PLAVIX 75 MG Tablet] 75 mg PO DAILY 07/18/12 [History] Cyanocobalamin (Vitamin B-12) [Vitamin B-12] 100 mcg PO DAILY 07/18/12 [History] Insulin Glargine,Hum.rec.anlog [Lantus] 20 unit SQ HS 07/18/12 [History] Quinapril HCl 10 mg [Accupril 10MG Tablet] 20 mg PO DAILY 07/18/12 [History] Theophylline Anhydrous 200 mg* [Arik-Dur 200 mg] 200 mg PO TID 07/18/12 [ History] Vitamin E Acid Succinate [Vitamin E] 200 unit PO DAILY 07/18/12 [History] Omeprazole 40 mg PO DAILY 07/19/12 [History] Insulin Lispro [Humalog] 23 units SQ AC 01/18/16 [History] Citalopram Hydrobromide [Citalopram HBr] 40 mg PO DAILY 10/28/16 [History] Ranolazine 500 MG [Ranexa 500 MG] 1 tab PO DAILY 10/28/16 [History] Simvastatin 40 mg [Zocor 40 mg] 80 mg PO HS 10/28/16 [History] Cholecalciferol (Vitamin D3) [Vitamin D] 0 unit PO DAILY 02/10/17 [History] Meloxicam 7.5 mg [Mobic 7.5 MG] 7.5 mg PO BID 02/16/17 [History] Hx Tetanus, Diphtheria Vaccination/Date Given: Yes Hx Influenza Vaccination/Date Given: No Hx Pneumococcal Vaccination/Date Given: Yes Immunizations Up to Date: Yes - Review of Systems Constitutional: Weakness (general), No Fever, No Chills Eyes: No Symptoms Ears, Nose, & Throat: No Symptoms Respiratory: No Cough, No Dyspnea Cardiac: Chest Pain (heaviness), Palpitations Abdominal/Gastrointestinal: Nausea, No Vomiting Skin: No Rash Neurological: No Focal Weakness, No Headache, No Parasthesia All Other Systems: Reviewed and Negative - Past Medical History Pertinent Past Medical History: Yes Neurological History: No Pertinent History ENT History: Cataracts Cardiac History: Hypertension, Myocardial Infarction ([place]) Respiratory History: COPD Endocrine Medical History: Diabetes Type II Musculoskeletal History: Arthritis GI Medical History: Cirrhosis, GERD History: No Pertinent History Psycho-Social History: Depression Female Reproductive Disorders: No Pertinent History Other Medical History: CHRONIC BACK PAIN, VENITA KNEE PAIN - Past Surgical History Past Surgical History: Yes Neuro Surgical History: No Pertinent History Cardiac: Cardiac Catheterization Respiratory: No Pertinent History Gastrointestinal: Appendectomy, Cholecystectomy Genitourinary: No Pertinent History Musculoskeletal: Other Female Surgical History: Hysterectomy Other Surgical History: rectal surgery, back surgery - Social History Smoking Status: Never smoker Exposure to second hand smoke: No Drug Use: none Patient Lives Alone: No - Nursing Vital Signs Nursing Vital Signs: Initial Vital Signs Temperature 97.5 F 04/03/17 13:33 Pulse Rate 134 H 04/03/17 13:33 Respiratory Rate 24 04/03/17 13:33 O2 Sat by Pulse Oximetry 90 L 04/03/17 13:33 Pain Scale Pain Intensity 6 - Physical Exam General Appearance: alert Eye Exam: PERRL/EOMI Ears, Nose, Throat Exam: normal ENT inspection, moist mucous membranes Neck Exam: normal inspection, non-tender, supple Respiratory Exam: normal breath sounds Cardiovascular Exam: regular rate/rhythm, tachycardia Gastrointestinal/Abdomen Exam: soft, No tenderness, No distention Back Exam: normal inspection, normal range of motion Extremity Exam: normal inspection, normal range of motion Neurologic Exam: alert, oriented x 3, cooperative, sensation nml, No motor deficits Skin Exam: warm, dry, No rash SpO2 Interpretation: borderline oxygenation SpO2: 92 Oxygen Delivery: Nasal Cannula - Course Nursing assessment & vital signs reviewed: Yes EKG Interpreted by Me: RATE (132), SVT, NORMAL INTERVALS, Non-specific ST Changes (ST depressions) - Radiology Exams cxr X-ray Interpretation: Reviewed by me (mild congestion, aging chest) Ordered Tests: Active Orders 24 hr Category Date Time Status Speech Professor STAT Care 04/03/17 13:37 Active EKG-ER Only STAT Care 04/03/17 13:36 Active IV Insertion STAT Care 04/03/17 13:36 Active IV Insertion-2nd Peripheral STAT Care 04/03/17 14:12 Active Oxygen-ED Only NASAL CANNULA 2 lpm Care 04/03/17 13:36 Active Pulse Oximetry (ED) STAT Care 04/03/17 13:36 Active CHEST 1 VIEW (PORTABLE) Stat Exams 04/03/17 13:36 Ordered CBC W DIFF Stat Lab 04/03/17 13:36 Completed CMP Routine Lab 04/03/17 13:50 Completed MAGNESIUM Routine Lab 04/03/17 13:50 Completed Manual Differential NC Stat Lab 04/03/17 13:36 Completed PROTIME WITH INR Stat Lab 04/03/17 13:50 Completed PTT Stat Lab 04/03/17 13:50 Completed THEOPHYLLINE Routine Lab 04/03/17 13:50 Completed TROPONIN Q3H Lab 04/03/17 13:50 Completed TROPONIN Q3H Lab 04/03/17 16:45 Ordered TROPONIN Q3H Lab 04/03/17 19:45 Ordered TROPONIN Q3H Lab 04/03/17 22:45 Ordered TROPONIN Q3H Lab 04/04/17 01:45 Ordered Medication Summary Generic Name Dose Route Start Last Admin Trade Name Freq PRN Reason Stop Dose Admin Sodium Chloride 1,000 mls @ 100 mls/hr 04/03/17 13:45 04/03/17 14:09 Sodium Chloride 0.9% 1000 Ml IV 05/03/17 13:44 Not Given .Q10H SONAL Magnesium Sulfate/Dextrose 100 mls @ 100 mls/hr 04/03/17 13:45 04/03/17 14:19 Magnesium 1 Gm / 100 Ml D5w IV 04/03/17 15:44 100 mls/hr Q1H SONAL Administration Discontinued Medications Generic Name Dose Route Start Last Admin Trade Name Freq PRN Reason Stop Dose Admin Adenosine 6 mg 04/03/17 13:45 04/03/17 13:54 Adenocard Iv 6 Mg/2 Ml IV 04/03/17 13:46 6 mg STAT ONE Administration Adenosine Confirm 04/03/17 13:50 Adenocard Iv 6 Mg/2 Ml Administered 04/03/17 13:51 Dose 18 mg IV .STK-MED ONE Diltiazem HCl 10 mg 04/03/17 14:01 04/03/17 14:09 Cardizem Iv 50 Mg/10 Ml IV 04/03/17 14:02 Not Given STAT ONE Sodium Chloride 1,000 mls @ 999 mls/hr 04/03/17 13:45 04/03/17 13:55 Sodium Chloride 0.9% 1000 Ml IV 04/03/17 14:45 999 mls/hr .Q1H1M STA Administration Potassium Bicarbonate 25 meq 04/03/17 15:15 04/03/17 15:21 K-Lyte 25 Meq PO 04/03/17 15:16 25 meq STAT ONE Administration Potassium Bicarbonate Confirm 04/03/17 15:21 K-Lyte 25 Meq Administered 04/03/17 15:22 Dose 25 meq .ROUTE .STK-MED ONE Lab/Rad Data: Laboratory Result Diagrams 04/03/17 13:36 04/03/17 13:50 Laboratory Results 04/03/17 04/03/17 04/03/17 Range/Units 13:50 13:50 13:36 WBC 10.0 (4.0-10.5) K/mm3 RBC 5.54 H (4.1-5.4) M/mm3 Hgb 16.5 H (12.0-16.0) gm/dl Hct 48.0 H (35-47) % MCV 86.6 (78-100) fl MCH 29.7 (26-32) pg MCHC 34.4 (32-36) g/dl RDW 14.4 H (11.5-14.0) % Plt Count 249 (150-450) K/mm3 MPV 9.7 H (6-9.5) fl Segmented Neutrophils 59 (36.0-66.0) % Lymphocytes (Manual) 26 (24-44) % Monocytes (Manual) 10 (0.0-12.0) % Eosinophils (Manual) 5 H (0.00-3.0) % Differential Comment NORMAL Platelet Estimate NORMAL (NORMAL) INR 1.01 (0.8-3.0) APTT 36.4 (25.3-37.0) SECONDS Sodium 142 (136-145) mEq/L Potassium 4.2 (3.5-5.1) mEq/L Chloride 104 (98-107) mEq/L Carbon Dioxide 29.0 (21-32) mEq/L Anion Gap 13.1 (5-15) MEQ/L BUN 22 H (9-20) mg/dL Creatinine 0.95 (0.55-1.30) mg/dl Estimated GFR > 60 ML/MIN Glucose 281 H (70-110) MG/DL Calcium 9.5 (8.5-10.1) mg/dL Magnesium 1.4 L (1.8-2.4) mg/dL Total Bilirubin 0.90 (0.2-1.0) mg/dL AST 25 (15-37) U/L ALT 23 (12-78) U/L Alkaline Phosphatase 79 (46-116) U/L Troponin I < 0.017 (0.000-0.056) ng/ml Serum Total Protein 6.8 (6.4-8.2) gm/dL Albumin 3.7 (3.4-5.0) g/dL Theophylline 17.4 (10-20.0) ug/ml - Progress Progress Note: 04/03/17 14:51 IV started. IVF given. IV adenosine given. She had no change in rhythm but briefly had some dyspnea. While preparing cardizem she sponetaneously converted to NSR. BP improved. Spoke to Dr Cooper who advised consult Dr Blum and send to [facility]. 04/03/17 15:31 Unable to obtain med list as she does not have it and she mailorders. She feels fine now. Up to commode. NSR. BP ok. Called Dr Blum who agreed with K and mag supplementation. Will release home to see Dr Blum Wednesday in office. Counseled pt/family regarding: lab results, diagnosis, need for follow-up, rad results - Departure Time of Disposition: 15:32 Departure Disposition: Home Clinical Impression: Paroxysmal SVT (supraventricular tachycardia), Hypomagnesemia Condition: Stable Critical Care Time: No Referrals: JERMAIN BLUM MD [NON-STAFF PHY W/O PRIVILEGES] - Instructions: Paroxysmal Supraventricular Tachycardia Additional Instructions: Rest over weekend. Take your normal medications. Call to see Dr Blum Wednesday- take EKGs and your medication bottles with you. Return for problems or concerns.
[2017-04-03] MEDS ORDERED: K-LYTE 25 MEQ PO ONE (15:15)
[2017-04-03] MEDS ORDERED: K-LYTE 25 MEQ ONE (15:21)
[2017-04-03 15:44] VITALS: O2SAT 95
[2017-04-03 16:08] VITALS: BP 113/66; PULSE 67
--- NOTE | 2017-04-03 19:20 | XRAY ---
Indication: Cough for 2-3 weeks. History of atrial fibrillation and COPD. Comparison: February 15, 2017. Portable chest remains clear. Heart is not enlarged. Vascularity normal. Bony thorax intact again with mild osteopenia and degenerative changes. Impression: Stable nonacute chest with chronic features.
== END 2017-04-03 16:00 | disposition home or self-care (01) ==
LOC: ED 13:25
DX: I47.2 Ventricular tachycardia (principal); E83.42 Hypomagnesemia; R11.0 Nausea; Z79.899 Other long term (current) drug therapy; Z79.4 Long term (current) use of insulin
CPT/HCPCS: 36000; 36415; 71010; 80053; 80198; 83735; 84484; 85025; 85610; 85730; 93005; 93041; 96374; 99284; 99285; J0153; J3475; A9270-GY

== ENCOUNTER 2017-06-23 10:51 | Day surgery (SDC) | payer MEDICARE, SELFPAY ==
[~2017-06-23 10:51] MED LIST changes: +Lactated Ringers 1,000 ML IV SCH; +Sodium Chloride 0.9% 1000 ML 1,000 ML ONE; -Versed 2 MG/2 ML Injection IV ONE
[2017-06-23] MEDS ORDERED: DIPRIVAN 200 MG/20 ML IV ONE (10:52)
[2017-06-23] MEDS ORDERED: Ketamine HCl 50 MG/ML IV ONE (10:52)
[2017-06-23 11:44] VITALS: O2SAT 94
[2017-06-23] MEDS ORDERED: Lactated Ringers 1,000 ML IV ONE ×2 (11:55→13:57)
[2017-06-23 17:12] VITALS: BP 157/76; PULSE 61
--- NOTE | 2017-06-24 08:49 | OP ---
PROCEDURE DATE/TIME: 06/23/2017 1445 PREOPERATIVE DIAGNOSIS: Abdominal pain. POSTOPERATIVE DIAGNOSES: 1) Minor gastric body peptic ulcer. 2) Mild gastritis. 3) Mild gastroesophageal reflux disease. 4) Colonic polyp large and sessile. 5) Hemorrhoids. 6) Mild diverticulosis. PROCEDURES: 1) Colonoscopy with hot forceps polyp biopsy and colonic tattoo. 2) EGD with biopsy. PROCEDURE PERFORMED BY: Gissel Wade M.D. ANESTHESIA: MAC. ESTIMATED BLOOD LOSS: Minimal. COMPLICATIONS: None. SPECIMENS: 1) Antral biopsy. 2) Biopsy of ascending colon mass/sessile polyp. HISTORY: This is a 71 year-old female who presents with abdominal pain both left and right side. All risks, benefits, alternatives regarding EGD and colonoscopy have been discussed with the patient. She understands, agrees and would like to proceed. She was seen preoperatively and her history and physical reviewed, consent confirmed. DESCRIPTION OF PROCEDURE: We then placed her in the left lateral decubitus position. A complete time out done. MAC anesthesia introduced. The scope inserted into the mouth, oropharynx and gently into the esophagus, stomach and then duodenum. The duodenum is normal. In the stomach there was some mild gastritis. She had one tiny punctate healing gastric ulcer in the body this was very minor. There was no sign of active bleeding. Antral biopsy was taken to rule out any Helicobacter pylori disease and then the scope was carefully withdrawn after insuring hemostasis. The patient had some mild reflux changes. No other significant findings. The patient was then repositioned for colonoscopy. First a rectal exam was done. The patient has a moderate amount of external hemorrhoids. The scope was then entered and carefully navigated to the cecum. She had a moderate prep. There was scattered liquid stool and there was actually a small amount of solid stool scattered throughout the colon as well this slightly limited our view. She does also have a tortuous colon. In the sigmoid there were mild diverticula. Outside of this I did not see any other findings in the sigmoid, descending or transverse colon. The rectum was normal. In the ascending colon there is a sessile moderate sized polyp that appears to be benign however it is quite flat and sessile and it is very close to the cecum about 7 cm outside the cecum. We were able to gain access to the cecum somewhat difficult due to the patient's tortuous colon but with mild abdominal pressure we were able to gain access here. I could visualize the appendiceal orifice which is normal. You can see just the edge of the ileocecal valve. You cannot visualize the entire valve well due to the tortuosity. The polyp is right outside the cecum. I did take biopsies here and sent this to pathology as well as instill a tattoo immediately distal to this polyp site for further surveillance. After insuring hemostasis the scope was carefully withdrawn. At this time we will await what these biopsy findings show. If this shows just tubular adenoma we will plan for resection of this polyp and I discuss this with the family as well as that there is higher risk for perforation or bleeding because of the sessile nature and size of this polyp. The patient will follow up with me as an outpatient to determine our further planning once we have our results back. She will continue her stomach medication including the Pepcid and Carafate and we will plan to do another colonoscopy and EGD in about two to three months once we have the results back and have discussed our final plan.
== END 2017-06-23 17:26 | disposition home or self-care (01) ==
LOC: SDC 10:51
PROVIDERS: ATTEND Surgery
PROC: 0DBK8ZX Excision of Ascending Colon, Via Natural or Artificial Opening Endoscopic, Diagnostic (ICD-10-PCS; principal; 2017-06-23)
PROC: 3E0H8GC Introduction of Other Therapeutic Substance into Lower GI, Via Natural or Artificial Opening Endoscopic (ICD-10-PCS; 2017-06-23)
PROC: 0DB78ZX Excision of Stomach, Pylorus, Via Natural or Artificial Opening Endoscopic, Diagnostic (ICD-10-PCS; 2017-06-23)
DX: K27.9 Peptic ulcer, site unspecified, unspecified as acute or chronic, without hemorrhage or perforation (principal); K29.70 Gastritis, unspecified, without bleeding; K21.9 Gastro-esophageal reflux disease without esophagitis; K63.5 Polyp of colon; K64.4 Residual hemorrhoidal skin tags; K57.90 Diverticulosis of intestine, part unspecified, without perforation or abscess without bleeding
CPT/HCPCS: 00740; 00810; 99100; J2704

== ENCOUNTER 2017-10-05 13:35 | Observation (INO) | payer MEDICARE ==
[2017-10-05] MEDS ORDERED: BACIGUENT PACKET TP ONE (14:04)
[2017-10-05] MEDS ORDERED: DUONEB 0.5-3 MG/3 ml Neb IH ONE ×2 (14:04→14:22)
[2017-10-05] MEDS ORDERED: SUBLIMAZE 100 MCG/2 ML IV ONE (14:05)
[2017-10-05 14:37] LABS: BASOPHIL % 0.3 % (0.0-0.4); Basophil (Absolute #) 0.04 (0-0.4); Eosinophil % 1.7 % (0.00-5.0); Eosinophil (Absolute #) 0.22 (0-0.5); Granulocyte Absolute (ANC) 9.56 (1.4-6.9); Granulocytes % 75.5 % (36.0-66.0); Hematocrit 40.6 % (35-47); Lymphocyte (Absolute #) 1.66 (1.0-4.6); Lymphocytes % 13.1 % (24.0-44.0); Mean Cell Volume 85.8 fl (78-100); Mean Corpuscular Hemoglobin 29.6 pg (26-32); Mean Corpuscular Hgb Concent. 34.5 g/dl (32-36); Mean Platelet Volume 10.3 fl (6-9.5); Monocyte (Absolute #) 1.19 (0.0-1.3); Monocytes % 9.4 % (0.0-12.0); Platelet Count 149 K/mm3 (150-450); Red Blood Count 4.73 M/mm3 (4.1-5.4); Red Cell Distribution Width 14.2 % (11.5-14.0); White Blood Count 12.7 K/mm3 (4.0-10.5)
[2017-10-05] MEDS ORDERED: SUBLIMAZE 100 MCG/2 ML ONE (14:49)
--- NOTE | 2017-10-05 14:50 | ERPHSYRPT ---
- History of Present Illness Time Seen by Provider: 10/05/17 13:55 Source: patient, family (daughter) Patient Subjective Stated Complaint: fell this am while going into bathroom at home. pain to right hip, knee, elbow, and thumb. Triage Nursing Assessment: to room per w/c. skin w/d, pale. resp nonlabored. assisted to cot per two people. unable to bear weight on right knee and right hip. abrasions to right knee, right thumb, right elbow. Physician History: CC: fall Hx: 71 y/o patient fell at home. She has pain in the right knee and upper leg area. Hurts to attempt weight bearing. 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 Tetanus up to date 4 years ago. No neck or back pain. No syncope. No head injury. She has hx of COPD but stopped taking meds and uses essential dotera oils. She is not on home oxygen. Occurred: just prior to arrival Loss of Consciousness: no loss of consciousness Severity of Pain-Max: moderate Severity of Pain-Current: moderate Allergies/Adverse Reactions: Sulfa (Sulfonamide Antibiotics) [Sulfa(Sulfonamide Antibiotics)] Allergy (Severe , Verified 10/05/17 13:54) Tightness of Throat Iodinated Contrast- Oral and IV Dye [IV Dye, Iodine Containing Contrast ] Allergy (Intermediate, Verified 10/05/17 13:54) Rash iodine Allergy (Intermediate, Verified 10/05/17 13:54) Rash levofloxacin [From Levaquin] Allergy (Intermediate, Verified 10/05/17 13:54) Rash Penicillins Allergy (Intermediate, Verified 10/05/17 13:54) Swelling codeine [Codeine] Allergy (Unknown, Verified 10/05/17 13:54) unknown, states "just told not to take it oxytetracycline [From Terramycin] Allergy (Unknown, Verified 10/05/17 13:54) oxytetracycline HCl [From Terramycin] Allergy (Unknown, Verified 10/05/17 13:54) Home Medications: Carvedilol 6.25 mg [Coreg 6.25 MG] 3.125 mg PO BID 07/18/12 [History] Vitamin E Acid Succinate [Vitamin E] 400 unit PO DAILY 07/18/12 [History] Atorvastatin Calcium 80 mg PO DAILY 06/22/17 [History] Amiodarone HCl 10/05/17 [History] Amlodipine Besylate [Norvasc] 10/05/17 [History] Digoxin 10/05/17 [History] Levothyroxine Sodium 10/05/17 [History] Quetiapine Fumarate [Seroquel] 10/05/17 [History] Rosuvastatin Calcium [Crestor] 10/05/17 [History] Hx Tetanus, Diphtheria Vaccination/Date Given: Yes Hx Influenza Vaccination/Date Given: No Hx Pneumococcal Vaccination/Date Given: Yes Immunizations Up to Date: No - Review of Systems Constitutional: No Fever, No Chills Eyes: No Symptoms Ears, Nose, & Throat: No Symptoms Respiratory: No Cough, No Dyspnea Cardiac: No Chest Pain, No Syncope Abdominal/Gastrointestinal: No Abdominal Pain, No Nausea, No Vomiting Musculoskeletal: Fall, Injury, Joint Pain, No Back Pain, No Neck Pain Skin: No Rash Neurological: No Headache All Other Systems: Reviewed and Negative - Past Medical History Pertinent Past Medical History: Yes Neurological History: No Pertinent History ENT History: Cataracts Cardiac History: Hypertension, Myocardial Infarction ([place]) Respiratory History: COPD Endocrine Medical History: Diabetes Type II Musculoskeletal History: Arthritis GI Medical History: Cirrhosis, GERD History: No Pertinent History Psycho-Social History: Depression Female Reproductive Disorders: No Pertinent History Other Medical History: CHRONIC BACK PAIN, VENITA KNEE PAIN - Past Surgical History Past Surgical History: Yes Neuro Surgical History: No Pertinent History Cardiac: Cardiac Catheterization Respiratory: No Pertinent History Gastrointestinal: Appendectomy, Cholecystectomy Genitourinary: No Pertinent History Musculoskeletal: Other Female Surgical History: Hysterectomy Other Surgical History: rectal surgery, back surgery - Social History Smoking Status: Never smoker Exposure to second hand smoke: Yes Drug Use: none Patient Lives Alone: No - Nursing Vital Signs Nursing Vital Signs: Initial Vital Signs Temperature 98 F 10/05/17 13:39 Pulse Rate 69 10/05/17 13:39 Respiratory Rate 16 10/05/17 13:39 Blood Pressure 125/79 10/05/17 13:39 O2 Sat by Pulse Oximetry 89 L 10/05/17 13:39 Pain Scale Pain Intensity 0 - [place] Coma Score Best Eye Response ([place]): (4) open spontaneously Best Verbal Response ([place]): (5) oriented Best Motor Response ([place]): (6) obeys commands [place] Total: 15 - Physical Exam General Appearance: alert Head Injury: no evidence of injury Eye Exam: PERRL/EOMI ENT Exam: airway nml Neck Exam: supple, No mid-line tenderness Respiratory/Chest Exam: normal breath sounds, No chest tenderness Cardiovascular Exam: regular rate/rhythm Gastrointestinal Exam: soft, No tenderness, No distention Extremity Exam: normal inspection, tenderness (right hip and knee) Neurologic Exam: alert, oriented x 3, cooperative, sales floor manager II-XII nml as tested, sensation nml, No motor deficits Skin Exam: warm, dry, No rash SpO2 Interpretation: hypoxic, O2 applied SpO2: 89 Oxygen Delivery: Nasal Cannula - Course Nursing assessment & vital signs reviewed: Yes - Radiology Exams cxr X-ray Interpretation: Reviewed by me, Negative right knee, femur, pelvis X-ray Interpretation: Reviewed by me, No Fracture Ordered Tests: Active Orders 24 hr Category Date Time Status Claudio Bandage Application -[facility] STAT Care 10/05/17 16:13 Active IV Insertion STAT Care 10/05/17 14:03 Active Oxygen-ED Only NASAL CANNULA 1 lpm Care 10/05/17 14:04 Active Oxygen-ED Only NASAL CANNULA 2 lpm Care 10/05/17 16:19 Active Pulse Oximetry (ED) STAT Care 10/05/17 14:04 Active Wound Care STAT Care 10/05/17 14:03 Active CHEST 1 VIEW (PORTABLE) Stat Exams 10/05/17 14:03 Completed FEMUR Stat Exams 10/05/17 14:04 Completed KNEE (3 VIEWS) Stat Exams 10/05/17 14:04 Completed PELVIS (1 OR 2 VIEWS) Stat Exams 10/05/17 14:03 Completed ARTERIAL BLOOD GASES Stat Lab 10/05/17 16:19 Completed CBC W DIFF Stat Lab 10/05/17 14:37 Completed CMP Stat Lab 10/05/17 14:37 Completed Respiratory Nebulizer STAT RT 10/05/17 14:04 Completed Medication Summary Discontinued Medications Generic Name Dose Route Start Last Admin Trade Name Freq PRN Reason Stop Dose Admin Albuterol/Ipratropium 3 ml 10/05/17 14:04 10/05/17 14:30 Duoneb 0.5-3 Mg/3 Ml Neb IH 10/05/17 14:05 3 ml STAT ONE Administration Albuterol/Ipratropium Confirm 10/05/17 14:22 Duoneb 0.5-3 Mg/3 Ml Neb Administered 10/05/17 14:23 Dose 3 ml IH .STK-MED ONE Bacitracin 0.9 gm 10/05/17 14:04 10/05/17 15:09 Baciguent Packet TP 10/05/17 14:05 0.9 gm STAT ONE Administration Fentanyl Citrate 50 mcg 10/05/17 14:05 10/05/17 15:06 Sublimaze 100 Mcg/2 Ml IV 10/05/17 14:06 50 mcg STAT ONE Administration Fentanyl Citrate Confirm 10/05/17 14:49 Sublimaze 100 Mcg/2 Ml Administered 10/05/17 14:50 Dose 100 mcg .ROUTE .STK-MED ONE Lab/Rad Data: Laboratory Result Diagrams 10/05/17 14:37 10/05/17 14:37 Laboratory Results 10/05/17 10/05/17 10/05/17 Range/Units 16:19 14:37 14:37 WBC 12.7 H (4.0-10.5) K/mm3 RBC 4.73 (4.1-5.4) M/mm3 Hgb 14.0 (12.0-16.0) gm/dl Hct 40.6 (35-47) % MCV 85.8 (78-100) fl MCH 29.6 (26-32) pg MCHC 34.5 (32-36) g/dl RDW 14.2 H (11.5-14.0) % Plt Count 149 L (150-450) K/mm3 MPV 10.3 H (6-9.5) fl Gran % 75.5 H (36.0-66.0) % Lymphocytes % 13.1 L (24.0-44.0) % Monocytes % 9.4 (0.0-12.0) % Eosinophils % 1.7 (0.00-5.0) % Basophils % 0.3 (0.0-0.4) % Basophils # 0.04 (0-0.4) Puncture Site LEFT RADIAL pCO2 47 H (35-45) mmHg pO2 47 L* (75-100) mmHg Base Excess 10.0 H (-2.0-2.0) O2 Saturation 86.9 L (94-100) g/dF ABG pH 7.48 H (7.35-7.45) ABG HCO3 35.0 H* (22-28) ABG O2 Sat (Measured) 89.8 L (95-100) % Kirk Test YES A-a Gradient 44 a/A Ratio 0.52 Hemoglobin 14.2 Carboxyhemoglobin 2.2 (0.0-6.9) % THgb Methemoglobin 1.0 L (1.4-1.5) % Temperature 37.0 C POC O2 Flow Rate 21 % Sodium 146 H (136-145) mEq/L Potassium 3.3 L 3.5 (3.5-5.1) mEq/L Chloride 105 (98-107) mEq/L Carbon Dioxide 30.9 (21-32) mEq/L Anion Gap 13.1 (5-15) MEQ/L BUN 17 (9-20) mg/dL Creatinine 0.62 (0.55-1.30) mg/dl Estimated GFR > 60 ML/MIN Glucose 222 H (70-110) MG/DL Calcium 9.0 (8.5-10.1) mg/dL Total Bilirubin 1.20 H (0.2-1.0) mg/dL AST 24 (15-37) U/L ALT 30 (12-78) U/L Alkaline Phosphatase 76 (46-116) U/L Serum Total Protein 6.1 L (6.4-8.2) gm/dL Albumin 3.4 (3.4-5.0) g/dL - Progress Progress Note: 10/05/17 14:50 She has injury from fall. Also some hypoxemia that appears asymptomatic. Likely related to her COPD. 10/05/17 17:49 No fx. Pain some better with claudio wrap. Sh eis hypoxic, likely chronic. ABG done. Unable to walk without oxygen. Called Dr Epstein for obs. Likely COPD. Does not appear acute. Counseled pt/family regarding: lab results, diagnosis, need for follow-up, rad results - Departure Time of Disposition: 17:50 Departure Disposition: Observation Clinical Impression: Hypoxemia, COPD (chronic obstructive pulmonary disease), Fall, Contusion of right leg Condition: Fair Critical Care Time: No Referrals: RENETTA EPSTEIN MD [Primary Care Provider] - Instructions: Chronic Obstructive Pulmonary Disease
[2017-10-05 15:05] LABS: ALBUMIN 3.4 g/dL (3.4-5.0); ALKALINE PHOSPHATASE 76 U/L (46-116); ANION GAP 13.1 MEQ/L (5-15); BLOOD UREA NITROGEN 17 mg/dL (9-20); CHLORIDE 105 mEq/L (98-107); Carbon Dioxide 30.9 mEq/L (21-32); Creatinine 1 0.62 mg/dl (0.55-1.30); Glucose 222 MG/DL (70-110); Potassium 3.5 mEq/L (3.5-5.1); SGOT/AST 24 U/L (15-37); SGPT/ALT 30 U/L (12-78); SODIUM 146 mEq/L (136-145); Total Protein 6.1 gm/dL (6.4-8.2)
--- NOTE | 2017-10-05 15:54 | XRAY ---
Indication: Pain following fall. Comparison: None 2 views of the right femur demonstrate mild/moderate knee degenerative changes. Partially visualized lower lumbar hardware. No other bony, articular, or soft tissue abnormalities.
--- NOTE | 2017-10-05 15:54 | XRAY ---
Indication: Hypoxia. COPD. Status post fall. Comparison: April 03, 2017. Portable chest again demonstrates normal heart and lungs. Bony thorax intact again with mild osteopenia and degenerative changes. Partially visualized lumbar spinal hardware.
--- NOTE | 2017-10-05 15:55 | XRAY ---
Indication: Pain following fall. Comparison: September 15, 2015. 3 views of the right knee again demonstrates mild/moderate tricompartmental degenerative changes again greatest involving the medial compartment. Stable fabella. No other bony, articular, or soft tissue abnormalities.
--- NOTE | 2017-10-05 15:55 | XRAY ---
Indication: Pain following fall. Comparison: None Single AP pelvis demonstrates partially visualized lower lumbar spinal hardware. No other bony, articular, or soft tissue abnormalities.
[2017-10-05 16:33] LABS: A-aADO2 44; ABG HEMOGLOBIN 14.2; ABG POTASSIUM 3.3 (3.5-5.1); ABG SITE LEFT RADIAL; ARTERIAL BLD GAS O2 SATURATION 89.8 % (95-100); ARTERIAL BLOOD GAS FIO2 21 %; ARTERIAL BLOOD GAS PCO2 47 mmHg (35-45); ARTERIAL BLOOD GAS PO2 47 mmHg (75-100); ARTERIAL BLOOD GAS pH 7.48 (7.35-7.45); CARBOXYHEMOGLOBIN 2.2 % THgb (0.0-6.9); HGB O2 SAT 86.9 g/dF (94-100); paO2 pAO1 0.52
[2017-10-05 16:34] LABS: ALLEN TEST OK? YES
[2017-10-05 17:56] LABS: INR 1.12 (0.8-3.0)
[2017-10-05] MEDS: NORCO 5/325 MG PO PRN (19:03)
[2017-10-05] MEDS ORDERED: Coreg 3.125 MG PO SCH (22:00)
[2017-10-05] MEDS: DUONEB 0.5-3 MG/3 ml Neb IH SCH (23:20)
[2017-10-05] MEDS: Coreg 6.25 MG PO SCH (23:21)
[2017-10-05] MEDS: Accupril 10MG Tablet PO SCH (23:21)
[2017-10-05] MEDS: Mobic 7.5 MG PO SCH (23:22)
[2017-10-05] MEDS: ZOCOR 20MG PO SCH (23:22)
[2017-10-05] MEDS: Pepcid 20 MG PO SCH (23:22)
[2017-10-06] MEDS: DUONEB 0.5-3 MG/3 ml Neb IH SCH ×6 (03:56→22:08)
[2017-10-06] MEDS: NORCO 5/325 MG PO PRN ×3 (04:18→23:24)
[2017-10-06] MEDS: NovoLOG Insulin SQ PRN ×4 (08:16→22:34)
[2017-10-06] MEDS ORDERED: VITAMIN E ACID SUCCINATE 400 UNIT PO SCH (10:00)
[2017-10-06] MEDS: Accupril 10MG Tablet PO SCH ×2 (10:53→22:21)
[2017-10-06] MEDS: Coreg 6.25 MG PO SCH ×2 (10:54→22:22)
[2017-10-06] MEDS: Pepcid 20 MG PO SCH ×3 (10:54→22:22)
[2017-10-06] MEDS: ECOTRIN 81 MG PO SCH (10:54)
[2017-10-06] MEDS: Mobic 7.5 MG PO SCH ×2 (10:54→22:22)
[2017-10-06] MEDS: Protonix 40MG Tablet PO SCH (10:54)
[2017-10-06] MEDS: PLAVIX 75 MG Tablet PO SCH (10:54)
[2017-10-06] MEDS: ceLEXa 20 MG PO SCH (10:54)
[2017-10-06] MEDS: Vitamin E 400 UNIT SOFTGEL PO SCH (10:55)
--- NOTE | 2017-10-06 12:50 | PCM.HP ---
History of Present Illness - Chief Complaint Chief Complaint: fall, laceration rt leg, shortness of breath History of Present Illness: is a 71 year old female.fell at home. She has pain in the right knee and upper leg area. Hurts to attempt weight bearing. 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 Tetanus up to date 4 years ago. No neck or back pain. No syncope. No head injury. She has hx of COPD but stopped taking meds and uses essential dotera oils. She is not on home oxygen. Occurred: just prior to arrival Loss of Consciousness: no loss of consciousness Severity of Pain-Max: moderate Severity of Pain-Current: moderate - Review of Systems Constitutional: No Fever, No Chills Eyes: No Symptoms Ears, Nose, & Throat: No Symptoms Respiratory: Orthopnea, Short Of Breath, No Cough Cardiac: No Chest Pain, No Edema, No Syncope Abdominal/Gastrointestinal: No Abdominal Pain, No Nausea, No Vomiting, No Diarrhea Genitourinary Symptoms: No Dysuria Musculoskeletal: No Back Pain, No Neck Pain Skin: Cellulitis, No Rash Neurological: No Dizziness, No Focal Weakness, No Sensory Changes Psychological: No Symptoms Endocrine: No Symptoms Hematologic/Lymphatic: No Symptoms Immunological/Allergic: No Symptoms Medications & Allergies Home Medications: Home Medication List Carvedilol 6.25 mg [Coreg 6.25 MG] 6.25 mg PO BID 07/18/12 [History Confirmed 10/05/17] Vitamin E Acid Succinate [Vitamin E] 400 unit PO DAILY 07/18/12 [History Confirmed 10/05/17] Atorvastatin Calcium 80 mg PO HS 06/22/17 [History Confirmed 10/05/17] Aspirin [Aspirin EC] 81 mg PO DAILY 10/05/17 [History Confirmed 10/05/17] Citalopram Hydrobromide [Citalopram HBr] 40 mg PO DAILY 10/05/17 [History Confirmed 10/05/17] Clopidogrel Bisulfate [Clopidogrel] 75 mg PO DAILY 10/05/17 [History Confirmed 10/05/17] Famotidine 20 mg [Pepcid 20 MG] 20 mg PO BID 10/05/17 [History Confirmed 10/05/17] Insulin Aspart [Novolog Flexpen] 23 unit SQ AC 10/05/17 [History Confirmed 10/05] Meloxicam [Meloxicam] 7.5 mg PO BID 10/05/17 [History Confirmed 10/05/17] PANTOPRAZOLE 40 mg Tablet [Protonix 40MG Tablet] 40 mg PO DAILY 10/05/17 [ History Confirmed 10/05/17] Quinapril HCl 10 mg [Accupril 10MG Tablet] 10 mg PO BID 10/05/17 [History Confirmed 10/05/17] Allergies/Adverse Reactions: Allergies Allergy/AdvReac Type Severity Reaction Status Date / Time Sulfa (Sulfonamide Allergy Severe Tightness Verified 10/05/17 13:54 Antibiotics) of Throat [Sulfa(Sulfonamide Antibiotics)] Iodinated Contrast- Oral and Allergy Intermediate Rash Verified 10/05/17 13:54 IV Dye [IV Dye, Iodine Containing Contrast ] iodine Allergy Intermediate Rash Verified 10/05/17 13:54 levofloxacin [From Levaquin] Allergy Intermediate Rash Verified 10/05/17 13:54 Penicillins Allergy Intermediate Swelling Verified 10/05/17 13:54 codeine [Codeine] Allergy Unknown Verified 10/05/17 13:54 oxytetracycline Allergy Unknown Verified 10/05/17 13:54 [From Terramycin] oxytetracycline HCl Allergy Unknown Verified 10/05/17 13:54 [From Terramycin] - Past Medical History Past Medical History: Yes Neurological History: No Pertinent History ENT History: Cataracts Cardiac History: Arrhythmia, Hypertension, Myocardial Infarction ([place]) Respiratory History: COPD Endocrine Medical History: Diabetes Type II Musculoskelatal History: Arthritis GI Medical History: Cirrhosis, GERD History: No Pertinent History Pyscho-Social History: Depression Reproductive Disorders: No Pertinent History Comment: CHRONIC BACK PAIN, VENITA KNEE PAIN, - Female History Are you now?: No - Past Surgical History Past Surgical History: Yes Neuro Surgical History: No Pertinent History Cardiac History: Cardiac Catheterization Respiratory Surgery: No Pertinent History GI Surgical History: Appendectomy, Cholecystectomy Genitourinary Surgical Hx: No Pertinent History Musculskeletal Surgical Hx: Other Female Surgical History: Hysterectomy Other Surgical History: rectal surgery (AP repair?), back surgery, not sure if gallbladder was removed - Social History Smoking Status: Never smoker Exposure to second hand smoke: No Alcohol: None Drug Use: none - Physical Exam Vital Signs: Vital Signs - 24 hr Temp Pulse Resp BP Pulse Ox 10/06/17 11:43 98.0 F 58 L 16 137/63 96 10/06/17 11:00 56 L 18 94 L 10/06/17 08:00 18 10/06/17 07:37 98.0 F 56 L 16 133/68 93 L 10/06/17 06:48 58 L 16 94 L 10/06/17 04:00 98.3 F 55 L 16 157/69 94 L 10/06/17 03:57 55 L 16 94 L 10/06/17 00:00 97.7 F 56 L 18 159/71 94 L 10/05/17 23:21 56 L 18 94 L 10/05/17 21:43 59 L 22 97 10/05/17 20:00 98.1 F 60 18 166/72 96 10/05/17 18:52 98 F 57 L 22 170/71 95 10/05/17 17:50 89 L 10/05/17 17:24 59 L 16 131/81 97 10/05/17 16:20 98 F 62 14 130/71 86 L 10/05/17 15:13 62 12 97 10/05/17 15:11 62 16 143/68 91 L 10/05/17 14:43 89 L 10/05/17 13:39 98 F 69 16 125/79 89 L Oxygen-Last 24 hours O2 Percentage 2 Liters = 28% O2 Percentage 2 Liters = 28% O2 Percentage 2 Liters = 28% O2 Percentage 1 Liter = 24% O2 Percentage 1 Liter = 24% Oxygen Flowrate (L/min)-RT 2 Oxygen Flowrate (L/min)-RT 2 Oxygen Flowrate (L/min)-RT 2 Oxygen Flowrate (L/min)-RT 2 General Appearance: no apparent distress, alert Neurologic Exam: alert, oriented x 3, cooperative, normal mood/affect, nml cerebellar function, nml station & gait, sensation nml, No motor deficits Eye Exam: PERRL/EOMI, eyes nml inspection Ears, Nose, Throat Exam: normal ENT inspection, TMs normal, pharynx normal, moist mucous membranes Neck Exam: normal inspection, non-tender, supple, full range of motion Respiratory Exam: normal breath sounds, lungs clear, No respiratory distress Cardiovascular Exam: regular rate/rhythm, normal heart sounds, normal peripheral pulses Gastrointestinal/Abdomen Exam: soft, normal bowel sounds, No tenderness, No mass Back Exam: normal inspection, normal range of motion, No CVA tenderness, No vertebral tenderness Extremity Exam: normal inspection, normal range of motion, pelvis stable Skin Exam: normal color, warm, dry, No rash Lymphatic Exam: No adenopathy Results - Labs Lab/Micro Results: Accuchecks Date 10/06/17 Time 07:30 Accucheck Value: 168 Accucheck Value: 161 Lab Results-Last 24 Hours 10/05/17 Range/Units Unknown Hemoglobin A1c 7.1 H (4.5-6.2) Accuchecks Date 10/06/17 Time 07:30 Accucheck Value: 168 Accucheck Value: 161 - Other Procedures and Tests Respiratory Therapy 10/05/17 23:00 neb [Respiratory Nebulizer] Q4H Assessment/Plan (1) Hypoxemia Current Visit: Yes Status: Acute Code(s): R09.02 - HYPOXEMIA (2) Contusion of right leg Current Visit: Yes Status: Acute Code(s): S80.11XA - CONTUSION OF RIGHT LOWER LEG, INITIAL ENCOUNTER (3) Fall Current Visit: Yes Status: Acute Code(s): W19.XXXA - UNSPECIFIED FALL, INITIAL ENCOUNTER (4) COPD (chronic obstructive pulmonary disease) Current Visit: Yes Status: Chronic (5) Type 2 diabetes mellitus Current Visit: No Status: Chronic Qualifiers:
[2017-10-06] MEDS: ZOCOR 20MG PO SCH (22:22)
[2017-10-07] MEDS: DUONEB 0.5-3 MG/3 ml Neb IH SCH ×4 (02:07→14:04)
[2017-10-07] MEDS: NovoLOG Insulin SQ PRN ×2 (09:18→12:16)
[2017-10-07] MEDS: Pepcid 20 MG PO SCH (11:31)
[2017-10-07] MEDS: ceLEXa 20 MG PO SCH (11:31)
[2017-10-07] MEDS: NORCO 5/325 MG PO PRN (11:31)
[2017-10-07] MEDS: Protonix 40MG Tablet PO SCH (11:31)
[2017-10-07] MEDS: Coreg 6.25 MG PO SCH (11:31)
[2017-10-07] MEDS: ECOTRIN 81 MG PO SCH (11:31)
[2017-10-07] MEDS: Accupril 10MG Tablet PO SCH (11:32)
[2017-10-07] MEDS: Mobic 7.5 MG PO SCH (11:32)
[2017-10-07] MEDS: PLAVIX 75 MG Tablet PO SCH (11:32)
[2017-10-07] MEDS: Vitamin E 400 UNIT SOFTGEL PO SCH (11:33)
--- NOTE | 2017-10-07 12:07 | PCM.DS ---
Discharge Summary Date of Admission: 10/05/17 18:26 Admitting Physician: RENETTA EPSTEIN Primary Care Provider: RENETTA EPSTEIN Allergies Allergies Sulfa (Sulfonamide Antibiotics) [Sulfa(Sulfonamide Antibiotics)] Allergy (Severe , Verified 10/05/17 13:54) Tightness of Throat Iodinated Contrast- Oral and IV Dye [IV Dye, Iodine Containing Contrast ] Allergy (Intermediate, Verified 10/05/17 13:54) Rash iodine Allergy (Intermediate, Verified 10/05/17 13:54) Rash levofloxacin [From Levaquin] Allergy (Intermediate, Verified 10/05/17 13:54) Rash Penicillins Allergy (Intermediate, Verified 10/05/17 13:54) Swelling codeine [Codeine] Allergy (Unknown, Verified 10/05/17 13:54) unknown, states "just told not to take it oxytetracycline [From Terramycin] Allergy (Unknown, Verified 10/05/17 13:54) oxytetracycline HCl [From Terramycin] Allergy (Unknown, Verified 10/05/17 13:54) Hospital Summary - Hospital Course Hospital Course: Chief Complaint Diagnosis fall, laceration rt leg, shortness of breath Allergies Allergy/AdvReac Type Severity Reaction Status Date / Time Sulfa (Sulfonamide Allergy Severe Tightness Verified 10/05/17 13:54 Antibiotics) of Throat [Sulfa(Sulfonamide Antibiotics)] Iodinated Contrast- Oral and Allergy Intermediate Rash Verified 10/05/17 13:54 IV Dye [IV Dye, Iodine Containing Contrast ] iodine Allergy Intermediate Rash Verified 10/05/17 13:54 levofloxacin [From Levaquin] Allergy Intermediate Rash Verified 10/05/17 13:54 Penicillins Allergy Intermediate Swelling Verified 10/05/17 13:54 codeine [Codeine] Allergy Unknown Verified 10/05/17 13:54 oxytetracycline Allergy Unknown Verified 10/05/17 13:54 [From Terramycin] oxytetracycline HCl Allergy Unknown Verified 10/05/17 13:54 [From Terramycin] Vital Signs (Last 24 hours) Temp Pulse Resp BP Pulse Ox 10/07/17 11:06 94 L 10/07/17 10:07 64 16 87 L 10/07/17 08:00 98.6 F 55 L 16 151/67 98 10/07/17 06:38 57 L 18 95 10/07/17 04:00 98.5 F 65 20 135/63 94 L 10/07/17 03:42 20 10/07/17 02:07 61 20 93 L 10/07/17 00:00 98.5 F 70 20 154/84 92 L 10/06/17 22:08 62 20 94 L 10/06/17 20:00 98.2 F 65 19 125/65 93 L 10/06/17 17:38 60 18 93 L 10/06/17 16:00 98.0 F 56 L 16 128/63 95 10/06/17 15:52 96 10/06/17 15:45 86 L 10/06/17 15:18 57 L 18 93 L Home Medications Medication Instructions Recorded Confirmed Last Taken Type Aspirin [Aspirin EC] 81 mg PO DAILY 10/05/17 10/05/17 10/05/17 History Citalopram Hydrobromide 40 mg PO DAILY 10/05/17 10/05/17 10/05/17 History [Citalopram HBr] Clopidogrel Bisulfate [Clopidogrel] 75 mg PO DAILY 10/05/17 10/05/17 10/05/17 History Famotidine 20 mg [Pepcid 20 20 mg PO BID 10/05/17 10/05/17 10/05/17 History MG] Insulin Aspart [Novolog Flexpen] 23 unit SQ AC 10/05/17 10/05/17 10/05/17 History Meloxicam [Meloxicam] 7.5 mg PO BID 10/05/17 10/05/17 10/05/17 History PANTOPRAZOLE 40 mg Tablet 40 mg PO DAILY 10/05/17 10/05/17 Unknown History [Protonix 40MG Tablet] Quinapril HCl 10 mg [Accupril 10 mg PO BID 10/05/17 10/05/17 10/05/17 History 10MG Tablet] Current Medications Generic Name Dose Route Start Last Admin Trade Name Freq PRN Reason Stop Dose Admin Hydrocodone Bitart/Acetaminophen 1 tab 10/05/17 18:35 10/07/17 11:31 [place] 5/325 Mg PO 10/10/17 18:34 1 tab QID PRN PRN Administration PAIN Albuterol/Ipratropium 3 ml 10/05/17 19:00 10/07/17 10:05 Duoneb 0.5-3 Mg/3 Ml Neb IH 11/04/17 18:59 3 ml Q4HRT SONAL Administration Aspirin 81 mg 10/06/17 10:00 10/07/17 11:31 Ecotrin 81 Mg PO 11/05/17 09:59 81 mg DAILY SONAL Administration Carvedilol 6.25 mg 10/05/17 22:00 10/07/17 11:31 Coreg 6.25 Mg PO 11/04/17 21:59 6.25 mg BID SONAL Administration Citalopram Hydrobromide 40 mg 10/06/17 10:00 10/07/17 11:31 Celexa 20 Mg PO 11/05/17 09:59 40 mg QAM SONAL Administration Clopidogrel Bisulfate 75 mg 10/06/17 10:00 10/07/17 11:32 Plavix 75 Mg Tablet PO 11/05/17 09:59 75 mg DAILY SONAL Administration Famotidine 20 mg 10/06/17 10:00 10/07/17 11:31 Pepcid 20 Mg PO 11/05/17 09:59 20 mg BID SONAL Administration Insulin Aspart 0 unit 10/05/17 18:35 10/07/17 09:18 Novolog Insulin SQ 11/04/17 18:34 3 unit UD PRN Administration HYPERGLYCEMIA Meloxicam 7.5 mg 10/05/17 22:00 10/07/17 11:32 Mobic 7.5 Mg PO 11/04/17 21:59 7.5 mg BID SONAL Administration Pantoprazole Sodium 40 mg 10/06/17 10:00 10/07/17 11:31 Protonix 40mg Tablet PO 11/05/17 09:59 40 mg DAILY SONAL Administration Quinapril HCl 10 mg 10/05/17 22:00 10/07/17 11:32 Accupril 10mg Tablet PO 11/04/17 21:59 10 mg BID SONAL Administration Simvastatin 80 mg 10/05/17 22:00 10/06/17 22:22 Zocor 20mg PO 11/04/17 21:59 80 mg HS SONAL Administration Vitamin E 400 u 10/06/17 10:00 10/07/17 11:33 Vitamin E 400 Unit Softgel PO 11/05/17 09:59 400 u QAM SONAL Administration Discontinued Medications Generic Name Dose Route Start Last Admin Trade Name Isatu PRN Reason Stop Dose Admin Albuterol/Ipratropium 3 ml 10/05/17 14:04 10/05/17 14:30 Duoneb 0.5-3 Mg/3 Ml Neb IH 10/05/17 14:05 3 ml STAT ONE Administration Albuterol/Ipratropium Confirm 10/05/17 14:22 Duoneb 0.5-3 Mg/3 Ml Neb Administered 10/05/17 14:23 Dose 3 ml IH .STK-MED ONE Bacitracin 0.9 gm 10/05/17 14:04 10/05/17 15:09 Baciguent Packet TP 10/05/17 14:05 0.9 gm STAT ONE Administration Carvedilol 3.125 mg 10/05/17 22:00 Coreg 3.125 Mg PO 11/04/17 21:59 BID SONAL Famotidine 20 mg 10/05/17 22:00 10/06/17 10:54 Pepcid 20 Mg PO 11/04/17 21:59 20 mg BID SONAL Administration Fentanyl Citrate 50 mcg 10/05/17 14:05 10/05/17 15:06 Sublimaze 100 Mcg/2 Ml IV 10/05/17 14:06 50 mcg STAT ONE Administration Fentanyl Citrate Confirm 10/05/17 14:49 Sublimaze 100 Mcg/2 Ml Administered 10/05/17 14:50 Dose 100 mcg .ROUTE .STK-MED ONE Intake & Output (Last 24 hours) 10/05/17 10/06/17 10/07/17 10/08/17 11:59 11:59 11:59 11:59 Intake Total 150 1760 Output Total 200 2700 Balance -50 -940 Weight 73.8 kg 73.9 kg Orders (Last 24 hours) Category Date Time Status Qualify for Home Oxygen TODAY RT 10/07/17 11:00 Active Patient Care Notes (Last 24 hours) 10/07/17 11:06 Respiratory Note by Jessica Kumar PT'S OXYGEN SAT ON ROOM AIR WHILE AT REST WAS 87%. PT WAS THEN PLACED BACK ON 1LPM NASAL CANNULA. OXYGEN SAT INCREASED TO 94%. NURSE AWARE. Initialized on 10/07/17 11:06 - END OF NOTE 10/07/17 09:20 [facility], O2 removed per nursing measure, pt in agreement with this. Initialized on 10/07/17 09:20 - END OF NOTE - Vitals & Intake/Output Vital Signs: Vital Signs Temperature 98.6 F 10/07/17 08:00 Pulse Rate 64 10/07/17 10:07 Respiratory Rate 16 10/07/17 10:07 Blood Pressure 151/67 10/07/17 08:00 O2 Sat by Pulse Oximetry 94 L 10/07/17 11:06 Oxygen-Last Documented O2 Percentage 2 Liters = 28% Intake & Output: Intake & Output 10/05/17 10/06/17 10/07/17 10/08/17 11:59 11:59 11:59 11:59 Intake Total 150 1760 Output Total 200 2700 Balance -50 -940 Weight 73.8 kg 73.9 kg - Lab Result Diagrams: 10/05/17 14:37 10/05/17 14:37 Lab Results-Last 24 Hrs: Accuchecks Date 10/06/17 Time 16:30 Accucheck Value: 343 Accucheck Value: 288 Micro Results-Entire Visit: Accuchecks Date 10/06/17 Time 16:30 Accucheck Value: 343 Accucheck Value: 288 - Procedures and Test Procedures and Tests throughout Hospitalization: Therapy Orders & Screens 10/05/17 23:00 neb [Respiratory Nebulizer] Q4H Comment: DUO Q4 Diagnosis: hypoxemia, COPD, fall, laceration rt leg 10/07/17 11:00 Qualify for Home Oxygen TODAY Comment: Diagnosis: fall, laceration rt leg, shortness of breath Discharge Exam General Appearance: no apparent distress, alert Neurologic Exam: alert, oriented x 3, cooperative, normal mood/affect, nml cerebellar function, sensation nml, No motor deficits Skin Exam: normal color, warm, dry Eye Exam: PERRL, EOMI, eyes nml inspection Ears, Nose, Throat Exam: normal ENT inspection, pharynx normal, moist mucous membranes Neck Exam: normal inspection, non-tender, supple, full range of motion Respiratory Exam: normal breath sounds, lungs clear, No respiratory distress Cardiovascular Exam: regular rate/rhythm, normal heart sounds Gastrointestinal/Abdomen Exam: soft, No tenderness, No mass Extremity Exam: normal inspection, normal range of motion Back Exam: normal inspection, normal range of motion, No CVA tenderness, No vertebral tenderness Pelvic Exam: deferred Rectal Exam: deferred Final Diagnosis/Problem List - Final Discharge Diagnosis/Problem (1) Hypoxemia Current Visit: Yes Status: Acute Assessment & Plan: patient will require 1 L O2 24 hrs at home, home health to follow (2) Contusion of right leg Current Visit: Yes Status: Resolved (3) Fall Current Visit: Yes Status: Acute (4) COPD (chronic obstructive pulmonary disease) Current Visit: Yes Status: Chronic (5) Type 2 diabetes mellitus Current Visit: No Status: Chronic - Discharge Discharge Date: 10/07/17 Disposition: HOME HEALTH SERVICE Condition: Stable Prescriptions: No Action Vitamin E Acid Succinate [Vitamin E] 400 unit PO DAILY Carvedilol 6.25 mg [Coreg 6.25 MG] 6.25 mg PO BID Atorvastatin Calcium 80 mg PO HS Quinapril HCl 10 mg [Accupril 10MG Tablet] 10 mg PO BID Meloxicam [Meloxicam] 7.5 mg PO BID Insulin Aspart [Novolog Flexpen] 23 unit SQ AC Famotidine 20 mg [Pepcid 20 MG] 20 mg PO BID Clopidogrel Bisulfate [Clopidogrel] 75 mg PO DAILY Citalopram Hydrobromide [Citalopram HBr] 40 mg PO DAILY Aspirin [Aspirin EC] 81 mg PO DAILY PANTOPRAZOLE 40 mg Tablet [Protonix 40MG Tablet] 40 mg PO DAILY Follow up with: RENETTA EPSTEIN MD [Primary Care Provider] - 1 Week
[2017-10-07 13:22] VITALS: BP 145/64; O2SAT 93
[2017-10-07 14:07] VITALS: PULSE 66
== END 2017-10-07 14:45 | disposition home health service (06) ==
LOC: ED 13:35 → MED SURG 18:26
PROVIDERS: ADMIT General Practice; ATTEND General Practice
DX: R09.02 Hypoxemia (principal); S80.11XA Contusion of right lower leg, initial encounter; W19.XXXA Unspecified fall, initial encounter; J44.9 Chronic obstructive pulmonary disease, unspecified; E11.9 Type 2 diabetes mellitus without complications; I10 Essential (primary) hypertension; I25.2 Old myocardial infarction; F32.9 Major depressive disorder, single episode, unspecified
CPT/HCPCS: 36000; 36415; 36600; 71045; 72170; 73552; 73562; 80053; 80162; 82375; 82803; 82962; 83036; 85025; 85610; 94150; 94640; 94760; 96374; 99285; G0378; J3010; A9270-GY

== ENCOUNTER 2019-03-29 11:33 | Emergency (ER) | payer MEDICARE, SELFPAY | END 2019-03-29 15:16 | disposition home or self-care (01) | LOC: ED 11:33 ==

== ENCOUNTER 2019-08-31 13:18 | Emergency (ER) | payer MEDICARE ==
[2019-08-31] MEDS ORDERED: TYLENOL 325 MG PO ONE (14:03)
[2019-08-31] MEDS ORDERED: Sodium Chloride 0.9% 1000 ML 1,000 ML IV STA (14:03)
[2019-08-31 14:10] VITALS: BP 103/65
--- NOTE | 2019-08-31 14:30 | ERPHSYRPT ---
- History of Present Illness Time Seen by Provider: 08/31/19 13:56 Source: patient Exam Limitations: no limitations Patient Subjective Stated Complaint: Diarhea Triage Nursing Assessment: Patient brought back to ED via w/c and transferred to bed with assist of 1. Patient A+O X3. Patient's skin pink, warm and dry. Patient complains of diarrhea the past two days. Patient also complains of fever , cough and congestion for 3 weeks. Patient's lungs noted to have wheezes throughout. Physician History: Location: generalized malaise Quality: cough, cold, congestion, diarrhea Radiation: none Severity: moderate Duration: 3 weeks Timing: gradual Modifying factors/associated signs and symptoms: has not seen PCP, h/o COPD, on O2 Allergies/Adverse Reactions: Sulfa (Sulfonamide Antibiotics) [Sulfa(Sulfonamide Antibiotics)] Allergy (Severe , Verified 08/31/19 14:02) Tightness of Throat Iodinated Contrast Media [IV Dye, Iodine Containing Contrast ] Allergy ( Intermediate, Verified 08/31/19 14:02) Rash iodine Allergy (Intermediate, Verified 08/31/19 14:02) Rash levofloxacin [From Levaquin] Allergy (Intermediate, Verified 08/31/19 14:02) Rash Penicillins Allergy (Intermediate, Verified 08/31/19 14:02) Swelling codeine [Codeine] Allergy (Unknown, Verified 08/31/19 14:02) unknown, states "just told not to take it oxytetracycline [From Terramycin] Allergy (Unknown, Verified 08/31/19 14:02) oxytetracycline HCl [From Terramycin] Allergy (Unknown, Verified 08/31/19 14:02) Home Medications: Carvedilol 6.25 mg [Coreg 6.25 MG] 6.25 mg PO BID 07/18/12 [History] Vitamin E Acid Succinate [Vitamin E] 400 unit PO DAILY 07/18/12 [History] Atorvastatin Calcium 80 mg PO HS 06/22/17 [History] Aspirin [Aspirin EC] 81 mg PO DAILY 10/05/17 [History] Citalopram Hydrobromide [Citalopram HBr] 40 mg PO DAILY 10/05/17 [History] Clopidogrel Bisulfate [Clopidogrel] 75 mg PO DAILY 10/05/17 [History] Famotidine 20 mg [Pepcid 20 MG] 20 mg PO BID 10/05/17 [History] Insulin Aspart [Novolog Flexpen] 23 unit SQ AC 10/05/17 [History] Meloxicam 7.5 mg PO BID 10/05/17 [History] PANTOPRAZOLE 40 mg Tablet [Protonix 40MG Tablet] 40 mg PO DAILY 10/05/17 [ History] Quinapril HCl 10 mg [Accupril 10MG Tablet] 10 mg PO BID 10/05/17 [History] Citalopram Hydrobromide [Citalopram HBr] 1 tab PO DAILY 03/29/19 [History] Cyanocobalamin 500 Mcg [Vitamin B-12 500 MCG] 500 mcg PO DAILY 03/29/19 [ History] Gabapentin 300 mg PO TID 03/29/19 [History] Hx Tetanus, Diphtheria Vaccination/Date Given: Yes Hx Influenza Vaccination/Date Given: Yes Hx Pneumococcal Vaccination/Date Given: Yes Immunizations Up to Date: Yes - Review of Systems Constitutional: Fever, No Chills Eyes: No Symptoms Ears, Nose, & Throat: No Symptoms Respiratory: Cough, Dyspnea, Wheezing Cardiac: No Chest Pain, No Edema, No Syncope Abdominal/Gastrointestinal: No Abdominal Pain, No Nausea, No Vomiting, No Diarrhea Genitourinary Symptoms: No Dysuria Musculoskeletal: No Back Pain, No Neck Pain Skin: No Rash Neurological: No Dizziness, No Focal Weakness, No Sensory Changes Psychological: No Symptoms Endocrine: No Symptoms All Other Systems: Reviewed and Negative - Past Medical History Pertinent Past Medical History: Yes Neurological History: No Pertinent History ENT History: Cataracts Cardiac History: Arrhythmia, Hypertension, Myocardial Infarction ([place]) Respiratory History: COPD Endocrine Medical History: Diabetes Type II Musculoskeletal History: Arthritis GI Medical History: Cirrhosis, GERD History: No Pertinent History Psycho-Social History: Depression Female Reproductive Disorders: No Pertinent History Other Medical History: CHRONIC BACK PAIN, VENITA KNEE PAIN, - Past Surgical History Past Surgical History: Yes Neuro Surgical History: No Pertinent History Cardiac: Cardiac Catheterization Respiratory: No Pertinent History Gastrointestinal: Appendectomy, Cholecystectomy Genitourinary: No Pertinent History Musculoskeletal: Other Female Surgical History: Hysterectomy Other Surgical History: rectal surgery (AP repair?), back surgery - Social History Smoking Status: Never smoker Exposure to second hand smoke: No Drug Use: none Patient Lives Alone: No - Nursing Vital Signs Nursing Vital Signs: Initial Vital Signs Temperature 98.4 F 08/31/19 14:02 Pulse Rate 88 08/31/19 14:02 Respiratory Rate 18 08/31/19 14:02 Blood Pressure 103/65 08/31/19 14:02 O2 Sat by Pulse Oximetry 94 L 08/31/19 14:02 Pain Scale Pain Intensity 7 - Physical Exam General Appearance: no apparent distress, alert Eye Exam: PERRL/EOMI, eyes nml inspection Ears, Nose, Throat Exam: normal ENT inspection, TMs normal, pharynx normal, moist mucous membranes Neck Exam: normal inspection, non-tender, supple, full range of motion Respiratory Exam: normal breath sounds, wheezing, No lungs clear, No respiratory distress Cardiovascular Exam: regular rate/rhythm, normal heart sounds Gastrointestinal/Abdomen Exam: soft, No tenderness Back Exam: normal inspection, No CVA tenderness, No vertebral tenderness Extremity Exam: normal inspection, normal range of motion Neurologic Exam: alert, oriented x 3, cooperative, normal mood/affect, sensation nml, No motor deficits Skin Exam: normal color, warm, dry, No rash Lymphatic Exam: No adenopathy SpO2: 94 Ordered Tests: Active Orders 24 hr Category Date Time Status [employer] Representative STAT Care 08/31/19 14:04 Active EKG-ER Only STAT Care 08/31/19 14:03 Active IV Insertion STAT Care 08/31/19 14:03 Active CHEST 2 VIEWS (PA AND LAT) Stat Exams 08/31/19 14:03 Completed CBC W DIFF Stat Lab 08/31/19 14:52 Completed CMP Stat Lab 08/31/19 14:52 Completed LIPASE Stat Lab 08/31/19 14:52 Completed Manual Differential NC Stat Lab 08/31/19 14:52 Completed TROPONIN Q3H Lab 08/31/19 14:52 Completed TROPONIN Q3H Lab 08/31/19 17:15 Ordered TROPONIN Q3H Lab 08/31/19 20:15 Ordered TROPONIN Q3H Lab 08/31/19 23:15 Ordered TROPONIN Q3H Lab 09/01/19 02:15 Ordered UA W/RFX UR CULTURE Stat Lab 08/31/19 14:52 Completed Peak Expiratory Flow Rate ONCE RT 08/31/19 15:45 Active Respiratory Therapy Assessment DAILY RT 08/31/19 15:45 Active Medication Summary Discontinued Medications Generic Name Dose Route Start Last Admin Trade Name Freq PRN Reason Stop Dose Admin Acetaminophen 975 mg 08/31/19 14:03 08/31/19 15:19 Tylenol 325 Mg PO 08/31/19 14:04 975 mg STAT ONE Administration Acetaminophen Confirm 08/31/19 15:17 Tylenol 325 Mg Administered 08/31/19 15:18 Dose 975 mg .ROUTE .STK-MED ONE Albuterol/Ipratropium 3 ml 08/31/19 15:39 08/31/19 15:42 Duoneb 0.5-3 Mg/3 Ml Neb IH 08/31/19 15:40 3 ml STAT ONE Administration Albuterol/Ipratropium Confirm 08/31/19 15:39 Duoneb 0.5-3 Mg/3 Ml Neb Administered 08/31/19 15:40 Dose 3 ml IH .STK-MED ONE Aspirin Confirm 08/31/19 15:05 Baby Aspirin 81 Mg Chew Administered 08/31/19 15:06 Dose 324 mg .ROUTE .STK-MED ONE Dexamethasone Sodium Phosphate 10 mg 08/31/19 14:32 08/31/19 15:18 Decadron 10mg Inj. IV 08/31/19 14:33 10 mg STAT ONE Administration Dexamethasone Sodium Phosphate Confirm 08/31/19 15:17 Decadron 10mg Inj. Administered 08/31/19 15:18 Dose 10 mg .ROUTE .STK-MED ONE Sodium Chloride 1,000 mls @ 999 mls/hr 08/31/19 14:03 08/31/19 15:20 Sodium Chloride 0.9% 1000 Ml IV 08/31/19 15:03 999 mls/hr .Q1H1M STA Administration Sodium Chloride Confirm 08/31/19 15:05 Sodium Chloride 0.9% 1000 Ml Administered 08/31/19 15:06 Dose 1,000 mls @ ud .ROUTE .STK-MED ONE Sodium Chloride Confirm 08/31/19 15:17 Sodium Chloride 0.9% 1000 Ml Administered 08/31/19 15:18 Dose 1,000 mls @ ud .ROUTE .STK-MED ONE Lab/Rad Data: Laboratory Result Diagrams 08/31/19 14:52 08/31/19 14:52 Laboratory Results 08/31/19 08/31/19 08/31/19 Range/Units 14:52 14:52 14:52 WBC (4.0-10.5) K/mm3 RBC (4.1-5.4) M/mm3 Hgb (12.0-16.0) gm/dl Hct (35-47) % MCV (78-100) fl MCH (26-32) pg MCHC (32-36) g/dl RDW (11.5-14.0) % Plt Count (150-450) K/mm3 MPV (7.5-11.0) fl Segmented Neutrophils (36.0-66.0) % Band Neutrophils (0.0-2.0) % Lymphocytes (Manual) (24-44) % Monocytes (Manual) (0.0-12.0) % Atypical Lymphocytes % Toxic Granulation Platelet Estimate (NORMAL) RBC Morphology Sodium 136 L (137-145) mmol/L Potassium 3.0 L (3.5-5.1) mmol/L Chloride 89 L (98-107) mmol/L Carbon Dioxide 35 H (22-30) mmol/L Anion Gap 15.0 (5-15) MEQ/L BUN 28 H (7-17) mg/dL Creatinine 0.82 (0.52-1.04) mg/dL Estimated GFR > 60.0 ML/MIN Glucose 231 H (74-106) mg/dL Calcium 10.3 H (8.4-10.2) mg/dL Total Bilirubin 1.90 H (0.2-1.3) mg/dL AST 34 (14-36) U/L ALT 17 (0-35) U/L Alkaline Phosphatase 77 (38-126) U/L Troponin I < 0.012 (0.000-0.034) ng/mL Serum Total Protein 7.2 (6.3-8.2) g/dL Albumin 4.3 (3.5-5.0) g/dL Lipase 93 (23-300) U/L Urine Color YELLOW (YELLOW) Urine Appearance SLIGHTLY CLOUDY (CLEAR) Urine pH 6.0 (5-6) Ur Specific Renner 1.015 (1.005-1.025) Urine Protein NEGATIVE (Negative) Urine Ketones SMALL (NEGATIVE) Urine Blood NEGATIVE (0-5) Bubba/ul Urine Nitrite NEGATIVE (NEGATIVE) Urine Bilirubin NEGATIVE (NEGATIVE) Urine Urobilinogen 2 (0-1) mg/dL Ur Leukocyte Esterase NEGATIVE (NEGATIVE) Urine WBC (Auto) 3-5 (0-5) /HPF Urine RBC (Auto) 0-2 (0-2) /HPF U Hyaline Cast (Auto) 6-10 (0-2) /LPF U Epithel Cells (Auto) RARE (FEW) /HPF Urine Bacteria (Auto) RARE (NEGATIVE) /HPF Urine Mucus (Auto) SLIGHT (NEGATIVE) /HPF Urine Culture Reflexed NO (NO) Urine Glucose NEGATIVE (NEGATIVE) mg/dL Influenza Type A Ag (NEGATIVE) Influenza Type B Ag (NEGATIVE) RSV (PCR) (Negative) 08/31/19 08/31/19 Range/Units 14:52 14:15 WBC 15.1 H (4.0-10.5) K/mm3 RBC 5.43 H (4.1-5.4) M/mm3 Hgb 16.2 H (12.0-16.0) gm/dl Hct 46.5 (35-47) % MCV 85.6 (78-100) fl MCH 29.8 (26-32) pg MCHC 34.8 (32-36) g/dl RDW 13.8 (11.5-14.0) % Plt Count 277 (150-450) K/mm3 MPV 10.4 (7.5-11.0) fl Segmented Neutrophils 76 H (36.0-66.0) % Band Neutrophils 2 (0.0-2.0) % Lymphocytes (Manual) 12 L (24-44) % Monocytes (Manual) 8 (0.0-12.0) % Atypical Lymphocytes 2 % Toxic Granulation 2+ Platelet Estimate NORMAL (NORMAL) RBC Morphology NORMAL Sodium (137-145) mmol/L Potassium (3.5-5.1) mmol/L Chloride (98-107) mmol/L Carbon Dioxide (22-30) mmol/L Anion Gap (5-15) MEQ/L BUN (7-17) mg/dL Creatinine (0.52-1.04) mg/dL Estimated GFR ML/MIN Glucose (74-106) mg/dL Calcium (8.4-10.2) mg/dL Total Bilirubin (0.2-1.3) mg/dL AST (14-36) U/L ALT (0-35) U/L Alkaline Phosphatase (38-126) U/L Troponin I (0.000-0.034) ng/mL Serum Total Protein (6.3-8.2) g/dL Albumin (3.5-5.0) g/dL Lipase (23-300) U/L Urine Color (YELLOW) Urine Appearance (CLEAR) Urine pH (5-6) Ur Specific Renner (1.005-1.025) Urine Protein (Negative) Urine Ketones (NEGATIVE) Urine Blood (0-5) Bubba/ul Urine Nitrite (NEGATIVE) Urine Bilirubin (NEGATIVE) Urine Urobilinogen (0-1) mg/dL Ur Leukocyte Esterase (NEGATIVE) Urine WBC (Auto) (0-5) /HPF Urine RBC (Auto) (0-2) /HPF U Hyaline Cast (Auto) (0-2) /LPF U Epithel Cells (Auto) (FEW) /HPF Urine Bacteria (Auto) (NEGATIVE) /HPF Urine Mucus (Auto) (NEGATIVE) /HPF Urine Culture Reflexed (NO) Urine Glucose (NEGATIVE) mg/dL Influenza Type A Ag NEGATIVE (NEGATIVE) Influenza Type B Ag NEGATIVE (NEGATIVE) RSV (PCR) POSITIVE (Negative) - Progress Progress: improved Air Movement: good Progress Note: 08/31/19 14:31 - We'll obtain basic labs, fluids, EKG, troponin, chest x-ray - I feel comfortable with one time negative troponin given symptoms have improved and started greater then 6 hours ago. - EKG shows no ST changes - my read. See full read below. - O2 saturations consistently greater than 95%. - CXR shows no pneumonia, pneumothorax - my read - no other obvious lab abnormalities - breathing tx, steroids 08/31/19 16:09 Work-up largely unremarkable. Patient feels improved with medication and fluids here. Patient is RSV positive. This is most likely causing her symptoms today. Her wheezing has resolved with medication. We will discharge home on steroids and have patient follow up with PCP for reexam in 24-48 hours. She will return here sooner for new or changing symptoms. She states here understanding and will follow. Blood Culture(s) Obtained: No Antibiotics given: No Counseled pt/family regarding: lab results, diagnosis, need for follow-up, rad results - Departure Departure Disposition: Home Clinical Impression: RSV (respiratory syncytial virus infection), COPD exacerbation Condition: Stable Critical Care Time: No Referrals: LUCIAN,RENETTA, MD [Primary Care Provider] - Instructions: Chronic Obstructive Pulmonary Disease
[2019-08-31] MEDS ORDERED: DECADRON 10MG INJ. IV ONE (14:32)
[2019-08-31 14:54] LABS: Hematocrit 46.5 % (35-47); Hemoglobin 16.2 gm/dl (12.0-16.0); Mean Cell Volume 85.6 fl (78-100); Mean Corpuscular Hemoglobin 29.8 pg (26-32); Mean Corpuscular Hgb Concent. 34.8 g/dl (32-36); Mean Platelet Volume 10.4 fl (7.5-11.0); Platelet Count 277 K/mm3 (150-450); Red Blood Count 5.43 M/mm3 (4.1-5.4); Red Cell Distribution Width 13.8 % (11.5-14.0); White Blood Count 15.1 K/mm3 (4.0-10.5)
--- NOTE | 2019-08-31 14:56 | XRAY ---
Indication: Flu symptoms. Pneumonia. Comparison: October 05, 2017. PA/lateral chest again demonstrates normal heart and lungs. Bony thorax intact again with mild osteopenia, degenerative changes, and partially visualized lumbar spinal hardware. No new/acute findings.
[2019-08-31 14:58] LABS: Appearance SLIGHTLY CLOUDY (CLEAR); Bacteria RARE /HPF (NEGATIVE); Bilirubin NEGATIVE (NEGATIVE); Blood NEGATIVE Ery/ul (0-5); Epithelial Cells RARE /HPF (FEW); Glucose NEGATIVE (NEGATIVE); Ketones SMALL (NEGATIVE); Leukocyte Esterase NEGATIVE (NEGATIVE); Mucus SLIGHT /HPF (NEGATIVE); Nitrite NEGATIVE (NEGATIVE); Protein,Urine Dip NEGATIVE (Negative); RBC 0-2 /HPF (0-2); Specific Gravity 1.015 (1.005-1.025); Urobilinogen 2 mg/dL (0-1)
[2019-08-31 15:03] LABS: INFLUENZA A NEGATIVE (NEGATIVE); INFLUENZA B NEGATIVE (NEGATIVE)
[2019-08-31 15:04] LABS: RESPIRATORY SYNCTIAL VIRUS POSITIVE (Negative)
[2019-08-31] MEDS ORDERED: Sodium Chloride 0.9% 1000 ML 1,000 ML ONE ×2 (15:05→15:17)
[2019-08-31] MEDS ORDERED: BABY ASPIRIN 81 MG CHEW ONE (15:05)
[2019-08-31 15:08] LABS: ALBUMIN 4.3 g/dL (3.5-5.0); ALKALINE PHOSPHATASE 77 U/L (38-126); BLOOD UREA NITROGEN 28 mg/dL (7-17); CHLORIDE 89 mmol/L (98-107); Calcium 10.3 mg/dL (8.4-10.2); Carbon Dioxide 35 mmol/L (22-30); Creatinine 1 0.82 mg/dL (0.52-1.04); Glucose 231 mg/dL (74-106); LIPASE 93 U/L (23-300); SGOT/AST 34 U/L (14-36); SGPT/ALT 17 U/L (0-35); SODIUM 136 mmol/L (137-145); Total Protein 7.2 g/dL (6.3-8.2)
[2019-08-31] MEDS ORDERED: DECADRON 10MG INJ. ONE (15:17)
[2019-08-31] MEDS ORDERED: TYLENOL 325 MG ONE (15:17)
[2019-08-31] MEDS ORDERED: DUONEB 0.5-3 MG/3 ml Neb IH ONE ×2 (15:39)
[2019-08-31 15:48] VITALS: PULSE 85
[2019-08-31 15:48] LABS: ATYPICAL LYMPHS 2 %; BAND 2 % (0.0-2.0); Lymphocytes 12 % (24-44); Monocyte 8 % (0.0-12.0); Neutrophils 76 % (36.0-66.0); Platelet Estimate NORMAL (NORMAL); Total Cells Counted 100; Toxic Granulation 2+
[2019-08-31 16:14] VITALS: O2SAT 94
== END 2019-08-31 17:04 | disposition home or self-care (01) ==
LOC: ED 13:18
DX: B97.4 Respiratory syncytial virus as the cause of diseases classified elsewhere (principal); J44.1 Chronic obstructive pulmonary disease with (acute) exacerbation; I10 Essential (primary) hypertension; E11.9 Type 2 diabetes mellitus without complications; I25.2 Old myocardial infarction; M19.90 Unspecified osteoarthritis, unspecified site; K21.9 Gastro-esophageal reflux disease without esophagitis; F32.9 Major depressive disorder, single episode, unspecified; Z79.899 Other long term (current) drug therapy
CPT/HCPCS: 36000; 36415; 71046; 80053; 81001; 83690; 84484; 85025; 87631; 93005; 93041; 94150; 94640; 96360; 96374; 99284; J1100; A9270-GY

== ENCOUNTER 2022-03-11 09:40 | Emergency (ER) | payer BC, MEDICARE ==
--- NOTE | 2022-03-11 09:53 | ERPHSYRPT ---
- History of Present Illness Time Seen by Provider: 03/11/22 09:53 Source: patient Exam Limitations: no limitations Physician History: This is an obese 76-year-old white female patient of Dr. Epstein who has a history of atrial fibrillation, insulin-dependent diabetes, gastroesophageal reflux disease, hypertension and elevated cholesterol who fell approximately 1 week ago. She has had tenderness in the area of her right Achilles tendon and right heel. She has been ambulating on it but it hurts to do so. She is concerned of an Achilles tendon injury. Method of Injury: fell Occurred: last week Quality: aching Severity of Pain-Max: mild Severity of Pain-Current: mild Lower Extremities Pain: ankle: right, heel: right Modifying Factors: Improves With: movement Associated Symptoms: other (Hurts to bear weight but can do so) Allergies/Adverse Reactions: Sulfa (Sulfonamide Antibiotics) [Sulfa(Sulfonamide Antibiotics)] Allergy (Severe, Verified 03/11/22 10:02) Tightness of Throat Iodinated Contrast Media [IV Dye, Iodine Containing Contrast ] Allergy (Intermediate, Verified 03/11/22 10:02) Rash iodine Allergy (Intermediate, Verified 03/11/22 10:02) Rash levofloxacin [From Levaquin] Allergy (Intermediate, Verified 03/11/22 10:02) Rash Penicillins Allergy (Intermediate, Verified 03/11/22 10:02) Swelling codeine [Codeine] Allergy (Unknown, Verified 03/11/22 10:02) unknown, states "just told not to take it oxytetracycline [From Terramycin] Allergy (Unknown, Verified 03/11/22 10:02) oxytetracycline HCl [From Terramycin] Allergy (Unknown, Verified 03/11/22 10:02) Home Medications: Carvedilol [Coreg ] 6.25 mg PO DAILY 07/18/12 [History] Vitamin E Acid Succinate [Vitamin E] 400 unit PO DAILY 07/18/12 [History] Atorvastatin Calcium 80 mg PO HS 06/22/17 [History] Aspirin [Aspirin EC] 81 mg PO DAILY 10/05/17 [History] Citalopram Hydrobromide [Citalopram HBr] 40 mg PO DAILY 10/05/17 [History] Clopidogrel Bisulfate [Clopidogrel] 75 mg PO DAILY 10/05/17 [History] Insulin Aspart [Novolog Flexpen] 23 unit SQ AC 10/05/17 [History] Meloxicam 7.5 mg PO BID 10/05/17 [History] PANTOPRAZOLE 40 mg Tablet [Protonix 40MG Tablet] 40 mg PO DAILY 10/05/17 [History] Quinapril HCl 10 mg [Accupril 10MG Tablet] 10 mg PO BID 10/05/17 [History] Cyanocobalamin 500 Mcg [Vitamin B-12 500 MCG] 500 mcg PO DAILY 03/29/19 [History] Gabapentin 300 mg PO TID 03/29/19 [History] Hx Tetanus, Diphtheria Vaccination/Date Given: Yes Hx Influenza Vaccination/Date Given: Yes Hx Pneumococcal Vaccination/Date Given: Yes Travel Risk - International Travel Have you traveled outside of the country in past 3 weeks: No - Coronavirus Screening Are you exhibiting any of the following symptoms?: No Close contact with a COVID-19 positive Pt in past 14-21 Days: No - Review of Systems Constitutional: No Symptoms Eyes: No Symptoms Ears, Nose, & Throat: No Symptoms Respiratory: No Symptoms Cardiac: No Symptoms Abdominal/Gastrointestinal: No Symptoms Genitourinary Symptoms: No Symptoms Musculoskeletal: Fall, Injury (Right heel and ankle) Skin: No Symptoms Neurological: No Symptoms Psychological: No Symptoms Endocrine: No Symptoms Hematologic/Lymphatic: No Symptoms Immunological/Allergic: No Symptoms All Other Systems: Reviewed and Negative - Past Medical History Pertinent Past Medical History: Yes Neurological History: Other ENT History: Cataracts Cardiac History: Arrhythmia, Other Respiratory History: Asthma, COPD Endocrine Medical History: Diabetes Type II, Other Musculoskeletal History: Osteoarthritis GI Medical History: Cirrhosis, GERD History: No Pertinent History Psycho-Social History: Depression Female Reproductive Disorders: No Pertinent History Other Medical History: 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 2L O2 ALL THE TIME. 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 HEART SURGERY. - Past Surgical History Past Surgical History: Yes Neuro Surgical History: No Pertinent History Cardiac: Cardiac Catheterization Respiratory: No Pertinent History Gastrointestinal: Appendectomy, Cholecystectomy Genitourinary: No Pertinent History Musculoskeletal: Other Female Surgical History: Hysterectomy Other Surgical History: rectal surgery (AP repair?), back surgery - Social History Smoking Status: Never smoker Exposure to second hand smoke: No Drug Use: none Patient Lives Alone: No - Nursing Vital Signs Nursing Vital Signs: Initial Vital Signs Temperature 98.0 F 03/11/22 09:53 Pulse Rate 75 03/11/22 09:53 Respiratory Rate 20 03/11/22 09:53 Blood Pressure 143/70 03/11/22 09:53 O2 Sat by Pulse Oximetry 97 03/11/22 09:53 Pain Scale Pain Intensity 8 - Physical Exam General Appearance: no apparent distress, alert, anxiety, obese Eyes, Ears, Nose, Throat Exam: normal ENT inspection, moist mucous membranes Neck Exam: normal inspection, non-tender, supple, full range of motion Cardiovascular/Respiratory Exam: chest non-tender, no respiratory distress Gastrointestinal/Abdominal Exam: non-tender Back Exam: normal inspection, normal range of motion, No CVA tenderness, No vertebral tenderness Hips Exam: bilateral: non-tender, normal inspection, normal range of motion, no evidence of injury Legs Exam: bilateral leg: non-tender, normal inspection, normal range of motion, no evidence of injury Knees Exam: bilateral knee: non-tender, normal inspection, normal range of motion, no evidence of injury Ankle Exam: right ankle: soft tissue tenderness (In the area of the Achilles tendon), left ankle: non-tender, bilateral ankle: normal inspection, normal range of motion, no evidence of injury Foot Exam: left foot: non-tender, soft tissue tenderness (In the area of the heel), bilateral foot: normal inspection, normal range of motion, no evidence of injury Neuro/Tendon Exam: normal sensation, normal motor functions, normal tendon functions, responds to pain, no evidence tendon injury Mental Status Exam: alert, oriented x 3, cooperative Skin Exam: normal color, warm, dry SpO2 Interpretation: normal O2 Delivery: Room Air - Course Nursing assessment & vital signs reviewed: Yes Ordered Tests: Active Orders 24 hr Category Date Time Status ANKLE (3 VIEWS) Stat Exams 03/11/22 09:57 Completed FOOT (MINIMUM 3 VIEWS) Stat Exams 03/11/22 09:57 Completed - Progress Progress: unchanged, pain not gone completely, re-examined Progress Note: 03/11/22 10:43 X-ray right foot shows no acute fracture or dislocation. There are degenerative changes noted. X-ray right ankle shows no acute fracture or dislocation. There are tiny heel spurs present. Counseled pt/family regarding: diagnosis, need for follow-up, rad results - Departure Departure Disposition: Home Clinical Impression: Heel spur, Strain of ankle and foot Condition: Stable Critical Care Time: No Referrals: RENETTA EPSTEIN MD [Primary Care Provider] - Follow up/PCP as directed Additional Instructions: Ice pack/bath 3 times a day for the next 48 hours. Follow-up with Dr. Luu, our terry cloth cutter hand for further evaluation and management. May also follow-up with your primary care provider for further evaluation and management. Take your medications as prescribed.
--- NOTE | 2022-03-11 10:39 | XRAY ---
Indication: Pain following fall. Comparison: None 3 view right ankle demonstrates osteopenia, tiny heel spurs, mild lateral soft tissue swelling and posterior vascular calcifications. No other bony, articular, or soft tissue abnormalities.
--- NOTE | 2022-03-11 10:41 | XRAY ---
Indication: Pain following fall. Comparison: None 3 nonweightbearing views right foot demonstrates osteopenia, mild 1st MTP degenerative changes, tiny heel spurs, and posterior ankle vascular calcifications. No other bony, articular, or soft tissue abnormalities.
[2022-03-11 11:36] VITALS: BP 154/70; PULSE 68; O2SAT 2
== END 2022-03-11 11:35 | disposition home or self-care (01) ==
LOC: ED 09:40
DX: S96.911A Strain of unspecified muscle and tendon at ankle and foot level, right foot, initial encounter (principal); W19.XXXA Unspecified fall, initial encounter; M77.31 Calcaneal spur, right foot; M79.671 Pain in right foot; I10 Essential (primary) hypertension; E78.5 Hyperlipidemia, unspecified; E11.9 Type 2 diabetes mellitus without complications; J44.9 Chronic obstructive pulmonary disease, unspecified; Z79.02 Long term (current) use of antithrombotics/antiplatelets; Z79.4 Long term (current) use of insulin; Z79.899 Other long term (current) drug therapy; Z99.81 Dependence on supplemental oxygen
CPT/HCPCS: 73610; 73630; 99282

== ENCOUNTER 2022-06-01 14:04 | Emergency (ER) | payer MEDICARE ==
--- NOTE | 2022-06-01 14:16 | ERPHSYRPT ---
- History of Present Illness Time Seen by Provider: 06/01/22 14:16 Source: patient Exam Limitations: no limitations Patient Subjective Stated Complaint: PT HERE LEFT HIP PAIN FOR OVER A WEEK NOW, SHE STATES SHE FELL LAST WEEK AND WENT TO [facility] AND HAD A X RAY, AND IT WAS NEGATIVE, SHE STATES SHE IS UNABLE TO WALK AND HAS BEEN IN BED SINCE, Triage Nursing Assessment: PT ALERT, ARRIVED PER WC, RESP EASY, SKIN W/D/P,. HAS BROWN PURPLE BRUISING TO LEFT HIP, NO EDEMA NOTED Physician History: This is a 76-year-old white female who presented to the emergency department with left hip pain. Patient fell over a week ago and was seen at [facility] where x-rays were performed and were read as negative per her and her family report. However, the patient has not been able to stand up or ambulate because of pain in the left hip. Patient is living in a "shack" on a property and presents with bedbugs. Patient feels that she should have been more on demand and is concerned there may be in fact a fracture present. Method of Injury: fell Occurred: other Quality: constant, aching (Over a week ago) Severity of Pain-Max: moderate (When ambulating) Severity of Pain-Current: moderate (When ambulating when ambulating) Lower Extremities Pain: hip: left Modifying Factors: Improves With: movement Associated Symptoms: unable to bear weight Allergies/Adverse Reactions: Sulfa (Sulfonamide Antibiotics) [Sulfa(Sulfonamide Antibiotics)] Allergy (Severe, Verified 06/01/22 14:15) Tightness of Throat Iodinated Contrast Media [IV Dye, Iodine Containing Contrast ] Allergy (Intermediate, Verified 06/01/22 14:15) Rash iodine Allergy (Intermediate, Verified 06/01/22 14:15) Rash levofloxacin [From Levaquin] Allergy (Intermediate, Verified 06/01/22 14:15) Rash Penicillins Allergy (Intermediate, Verified 06/01/22 14:15) Swelling codeine [Codeine] Allergy (Unknown, Verified 06/01/22 14:15) unknown, states "just told not to take it oxytetracycline [From Terramycin] Allergy (Unknown, Verified 06/01/22 14:15) oxytetracycline HCl [From Terramycin] Allergy (Unknown, Verified 06/01/22 14:15) Home Medications: Carvedilol [Coreg ] 6.25 mg PO DAILY 07/18/12 [History] Vitamin E Acid Succinate [Vitamin E] 400 unit PO DAILY 07/18/12 [History] Atorvastatin Calcium 80 mg PO HS 06/22/17 [History] Aspirin [Aspirin EC] 81 mg PO DAILY 10/05/17 [History] Citalopram Hydrobromide [Citalopram HBr] 40 mg PO DAILY 10/05/17 [History] Clopidogrel Bisulfate [Clopidogrel] 75 mg PO DAILY 10/05/17 [History] Insulin Aspart [Novolog Flexpen] 23 unit SQ AC 10/05/17 [History] Meloxicam 7.5 mg PO BID 10/05/17 [History] PANTOPRAZOLE 40 mg Tablet [Protonix 40MG Tablet] 40 mg PO DAILY 10/05/17 [History] Quinapril HCl 10 mg [Accupril 10MG Tablet] 10 mg PO BID 10/05/17 [History] Cyanocobalamin 500 Mcg [Vitamin B-12 500 MCG] 500 mcg PO DAILY 03/29/19 [History] Gabapentin 300 mg PO TID 03/29/19 [History] Hx Tetanus, Diphtheria Vaccination/Date Given: Yes Hx Influenza Vaccination/Date Given: Yes Hx Pneumococcal Vaccination/Date Given: Yes Immunizations Up to Date: No Travel Risk - International Travel Have you traveled outside of the country in past 3 weeks: No - Coronavirus Screening Are you exhibiting any of the following symptoms?: No - Vaccine Status Have you recieved a Covid-19 vaccination: No - Review of Systems Constitutional: No Symptoms Eyes: No Symptoms Ears, Nose, & Throat: No Symptoms Respiratory: No Symptoms Cardiac: No Symptoms Abdominal/Gastrointestinal: Constipation Genitourinary Symptoms: No Symptoms Musculoskeletal: Fall (Over 1 week ago onto left hip), Injury (Left hip over 1 week ago) Skin: No Symptoms Neurological: No Symptoms Psychological: No Symptoms Endocrine: No Symptoms Hematologic/Lymphatic: No Symptoms Immunological/Allergic: No Symptoms All Other Systems: Reviewed and Negative - Past Medical History Pertinent Past Medical History: Yes Neurological History: Other ENT History: Cataracts Cardiac History: Arrhythmia, Other Respiratory History: Asthma, COPD Endocrine Medical History: Diabetes Type II, Other Musculoskeletal History: Osteoarthritis GI Medical History: Cirrhosis, GERD History: No Pertinent History Psycho-Social History: Depression Female Reproductive Disorders: No Pertinent History Other Medical History: 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 2L O2 ALL THE TIME. 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 HEART SURGERY. - Past Surgical History Past Surgical History: Yes Neuro Surgical History: No Pertinent History Cardiac: Cardiac Catheterization Respiratory: No Pertinent History Gastrointestinal: Appendectomy, Cholecystectomy Genitourinary: No Pertinent History Musculoskeletal: Other Female Surgical History: Hysterectomy Other Surgical History: rectal surgery (AP repair?), back surgery - Social History Smoking Status: Never smoker Exposure to second hand smoke: No Drug Use: none Patient Lives Alone: No - Nursing Vital Signs Nursing Vital Signs: Initial Vital Signs Temperature 97.4 F 06/01/22 14:06 Pulse Rate 64 06/01/22 14:06 Respiratory Rate 18 06/01/22 14:06 Blood Pressure 101/55 06/01/22 14:06 O2 Sat by Pulse Oximetry 96 06/01/22 14:06 Pain Scale Pain Intensity 0 - Physical Exam General Appearance: no apparent distress, alert, anxiety Eyes, Ears, Nose, Throat Exam: normal ENT inspection, TM abnormal (L) Neck Exam: normal inspection, non-tender, supple, full range of motion Cardiovascular/Respiratory Exam: chest non-tender, no respiratory distress Gastrointestinal/Abdominal Exam: non-tender Back Exam: normal inspection, normal range of motion, No CVA tenderness, No vertebral tenderness Hips Exam: right: non-tender, normal inspection, normal range of motion, no evidence of injury, left: bone tenderness, ecchymosis, limited range of motion, soft tissue tenderness Legs Exam: bilateral leg: non-tender, normal inspection, normal range of motion, no evidence of injury Knees Exam: bilateral knee: non-tender, normal inspection, normal range of motion, no evidence of injury Ankle Exam: bilateral ankle: non-tender, normal inspection, normal range of motion, no evidence of injury Foot Exam: bilateral foot: non-tender, normal inspection, normal range of motion, no evidence of injury Neuro/Tendon Exam: normal sensation, normal motor functions, normal tendon functions, no evidence tendon injury Mental Status Exam: alert, oriented x 3, cooperative Skin Exam: warm, ecchymosis (Skin overlying left hip) SpO2 Interpretation: normal SpO2: 96 O2 Delivery: Room Air - Course Nursing assessment & vital signs reviewed: Yes Ordered Tests: Active Orders 24 hr Category Date Time Status Catheter-Kingston Perez STAT Care 06/01/22 17:22 Active IV Insertion STAT Care 06/01/22 17:21 Active PELVIS WITHOUT CONTRAST [CT] Stat Exams 06/01/22 14:29 Completed CBC W DIFF Stat Lab 06/01/22 18:15 Completed CMP Stat Lab 06/01/22 18:15 Received UA W/RFX CULTURE Stat Lab 06/01/22 18:58 Ordered Medication Summary Discontinued Medications Generic Name Dose Route Start Last Admin Trade Name Isatu PRN Reason Stop Dose Admin Morphine Sulfate 4 mg 06/01/22 17:21 06/01/22 18:39 Morphine Sulfate 4 Mg/Ml Injection IV 06/01/22 17:22 4 mg STAT ONE Administration Morphine Sulfate Confirm 06/01/22 18:25 Morphine Sulfate 4 Mg/Ml Injection Administered 06/01/22 18:26 Dose 4 mg .ROUTE .STK-MED ONE Ondansetron HCl 4 mg 06/01/22 17:21 06/01/22 18:26 Ondansetron Hcl 4 Mg/2 Ml Vial IV 06/01/22 17:22 4 mg STAT ONE Administration Ondansetron HCl Confirm 06/01/22 18:25 Ondansetron Hcl 4 Mg/2 Ml Vial Administered 06/01/22 18:26 Dose 4 mg .ROUTE .STK-MED ONE Lab/Rad Data: Laboratory Result Diagrams 06/01/22 18:15 Laboratory Results 06/01/22 Range/Units 18:15 WBC 8.0 (4.0-10.5) x10^3/uL RBC 3.99 L (4.1-5.4) x10^6/uL Hgb 11.4 L (12.0-16.0) g/dL Hct 36.1 (35-47) % MCV 90.5 (78-100) fL MCH 28.6 (26-32) pg MCHC 31.6 L (32-36) g/dL RDW 13.5 (11.5-14.0) % Plt Count 207 (150-450) x10^3/uL MPV 9.5 (7.5-11.0) fL Gran % 64.1 (36.0-66.0) % Immature Gran % (Auto) 0.4 (0.00-0.4) % Nucleat RBC Rel Count 0.0 (0.00-0.1) % Eos # (Auto) 0.37 (0-0.5) x10^3/uL Immature Gran # (Auto) 0.03 (0.00-0.03) x10^3u/L Absolute Lymphs (auto) 1.53 (1.0-4.6) x10^3/uL Absolute Monos (auto) 0.90 (0.0-1.3) x10^3/uL Absolute Nucleated RBC 0.00 (0.00-0.01) x10^3u/L Lymphocytes % 19.0 L (24.0-44.0) % Monocytes % 11.2 (0.0-12.0) % Eosinophils % 4.6 (0.00-5.0) % Basophils % 0.7 (0.0-0.4) % Absolute Granulocytes 5.15 (1.4-6.9) x10^3/uL Basophils # 0.06 (0-0.4) x10^3/uL - Progress Progress: improved, pain not gone completely Progress Note: 06/01/22 17:18 CAT scan of the pelvis shows a new nondisplaced, acute fracture of the left greater trochanter. There is also an old partially united right greater trochanter fracture 06/01/22 19:05 Medical decision making: I spoke with the doctor in the emergency department at [facility], Dr. Latham and then we had a conference call with Dr. Corona who is the orthopedic surgeon. Dr. Webb reviewed the films and stated to go ahead and send the patient to [facility]. I am waiting for callback from [facility] to transfer this patient. Counseled pt/family regarding: lab results, diagnosis, need for follow-up, rad results - Departure Departure Disposition: Home Clinical Impression: Fracture of greater trochanter of left femur Condition: Stable Critical Care Time: No Referrals: RENETTA EPSTEIN MD [Primary Care Provider] - Follow up/PCP as directed
--- NOTE | 2022-06-01 17:14 | XRAY ---
Indication: Left hip pain following fall 8 days ago. Multiple contiguous axial images obtained through the pelvis with special attention to the osseous structures. Sagittal and coronal reformatted images obtained. Comparison: February 16, 2017 Osseous structures remain demineralized again with partially visualized bilateral lower lumbar fusion hardware with laminectomy. New nondisplaced acute comminuted fracture involving the left greater trochanter. Right hip demonstrates new finding for old partially united greater trochanter fracture. Elsewhere progressive worsening/moderate degenerative changes of both hips, right greater than left. Visualized noncontrasted soft tissues again demonstrates moderate size fatty umbilical hernia and mild scattered vascular calcifications. Impression: 1. New nondisplaced acute fracture left greater trochanter as detailed. Also new finding old partially united right greater trochanter fracture. 2. Progressive worsening degenerative changes of both hips. 3. Again osteopenia, lower lumbar fusion surgery/laminectomy, and fatty umbilical hernia.
[2022-06-01] MEDS ORDERED: Zofran 4 MG/2 ML VIAL IV ONE (17:21)
[2022-06-01] MEDS ORDERED: MORPHINE SULFATE 4 MG INJ IV ONE (17:21)
[2022-06-01] MEDS ORDERED: Zofran 4 MG/2 ML VIAL ONE (18:25)
[2022-06-01] MEDS ORDERED: MORPHINE SULFATE 4 MG INJ ONE (18:25)
[2022-06-01 18:49] LABS: Absolute Neutrophil Ct (ANC) 5.15 x10^3/uL (1.4-6.9); Basophil (Absolute #) 0.06 x10^3/uL (0-0.4); Eosinophil % 4.6 % (0.00-5.0); Eosinophil (Absolute #) 0.37 x10^3/uL (0-0.5); Hematocrit 36.1 % (35-47); Hemoglobin 11.4 g/dL (12.0-16.0); Lymphocyte (Absolute #) 1.53 x10^3/uL (1.0-4.6); Mean Cell Volume 90.5 fL (78-100); Mean Corpuscular Hemoglobin 28.6 pg (26-32); Mean Corpuscular Hgb Concent. 31.6 g/dL (32-36); Mean Platelet Volume 9.5 fL (7.5-11.0); Monocytes % 11.2 % (0.0-12.0); Neutrophil % 64.1 % (36.0-66.0); Platelet Count 207 x10^3/uL (150-450); Red Blood Count 3.99 x10^6/uL (4.1-5.4); Red Cell Distribution Width 13.5 % (11.5-14.0)
[2022-06-01 19:00] VITALS: BP 115/74; PULSE 54
[2022-06-01 19:02] LABS: ALBUMIN 3.4 g/dL (3.5-5.0); ALKALINE PHOSPHATASE 72 U/L (38-126); ANION GAP 4.4 MEQ/L (5-15); BLOOD UREA NITROGEN 19 mg/dL (7-17); CHLORIDE 98 mmol/L (98-107); Calcium 9.3 mg/dL (8.4-10.2); Carbon Dioxide 39 mmol/L (22-30); Creatinine 1 0.46 mg/dL (0.52-1.04); EST GLOMERULAR FILTRATION RATE > 60.0 ML/MIN; Glucose 105 mg/dL (74-106); Potassium 4.1 mmol/L (3.5-5.1); SGOT/AST 30 U/L (14-36); SGPT/ALT 13 U/L (0-35); SODIUM 138 mmol/L (137-145); Total Protein 6.4 g/dL (6.3-8.2)
[2022-06-01 19:06] VITALS: O2SAT 96
[2022-06-01 19:51] LABS: Bacteria MANY /HPF (NEGATIVE); Epithelial Cells RARE /HPF (FEW); Mucus MANY /HPF (NEGATIVE); RBC 51-100 /HPF (0-2); WBC >100 /HPF (0-5)
[2022-06-01 19:55] LABS: Appearance CLOUDY (CLEAR); Bilirubin NEGATIVE (NEGATIVE); Dipstick done @ ? MAIN LAB; Glucose NEGATIVE (NEGATIVE); Ketones NEGATIVE (NEGATIVE); Nitrite POSITIVE (NEGATIVE); Protein,Urine Dip NEGATIVE (Negative); RBC MODERATE Ery/ul (0-5); Urobilinogen 2 mg/dL (0-1)
[2022-06-01 20:04] LABS: Urine Cultured Indicated? YES
== END 2022-06-01 19:53 | disposition short-term general hospital (02) ==
LOC: ED 14:04
DX: S72.115A Nondisplaced fracture of greater trochanter of left femur, initial encounter for closed fracture (principal); W19.XXXA Unspecified fall, initial encounter; M25.552 Pain in left hip; J44.9 Chronic obstructive pulmonary disease, unspecified; E11.9 Type 2 diabetes mellitus without complications; Z79.4 Long term (current) use of insulin; Z79.899 Other long term (current) drug therapy; Z28.310 Unvaccinated for COVID-19
CPT/HCPCS: 36000; 36415; 51702; 72192; 80053; 81015; 85025; 87077; 87086; 87186; 96374; 96375; 99285; J2270; J2405

== ENCOUNTER 2022-10-12 11:30 | Observation (INO) | payer MEDICARE ==
[2012-07-19 10:09] VITALS: BP 146/85
--- NOTE | 2022-10-12 11:36 | ERPHSYRPT ---
- History of Present Illness Time Seen by Provider: 10/12/22 11:36 Source: patient, EMS, old records Exam Limitations: no limitations Physician History: This is a 76-year-old white female patient who lives at home and is a patient of Dr. Epstein. She was brought into the emergency room by paramedics because of increasing vertigo, falling and weakness. Additional history was obtained from the paramedics and family member. Patient states in the last 2 to 3 weeks she has fallen twice hitting her head and she complains of a headache and some neck pain. Patient was seen by her primary doctor who prescribed her medicine to help with the dizziness which did not help. He was also going to order bilateral carotid Dopplers which have not been ordered yet. Because of her increasing weakness, unsteadiness on her feet and falling as well as her vertigo and occasional headaches and nausea patient called an ambulance to bring her to the emergency department. She denies chest pain. She denies headache at this time. She denies visual changes. She denies abdominal pain. She has had no vomiting or diarrhea. Patient has a history of hyperlipidemia, hypertension, diabetes and gastroesophageal reflux disease and atrial fibrillation. Timing/Duration: week(s), worse Severity: mild (To moderate) Associated Symptoms: nausea, headaches, weakness, No vomiting, No abdominal pain, No shortness of breath, No chest pain, No fever Allergies/Adverse Reactions: Sulfa (Sulfonamide Antibiotics) [Sulfa(Sulfonamide Antibiotics)] Allergy (Severe, Verified 10/12/22 12:35) Tightness of Throat Iodinated Contrast Media [IV Dye, Iodine Containing Contrast ] Allergy (Inter mediate, Verified 10/12/22 12:35) Rash iodine Allergy (Intermediate, Verified 10/12/22 12:35) Rash levofloxacin [From Levaquin] Allergy (Intermediate, Verified 10/12/22 12:35) Rash Penicillins Allergy (Intermediate, Verified 10/12/22 12:35) Swelling codeine [Codeine] Allergy (Unknown, Verified 10/12/22 12:35) unknown, states "just told not to take it oxytetracycline [From Terramycin] Allergy (Unknown, Verified 10/12/22 12:35) oxytetracycline HCl [From Terramycin] Allergy (Unknown, Verified 10/12/22 12:35) Home Medications: Carvedilol [Coreg ] 6.25 mg PO DAILY 07/18/12 [History] Vitamin E Acid Succinate [Vitamin E] 400 unit PO DAILY 07/18/12 [History] Atorvastatin Calcium 80 mg PO HS 06/22/17 [History] Aspirin [Aspirin EC] 81 mg PO DAILY 10/05/17 [History] Citalopram Hydrobromide [Citalopram HBr] 40 mg PO DAILY 10/05/17 [History] Clopidogrel Bisulfate [Clopidogrel] 75 mg PO DAILY 10/05/17 [History] Insulin Aspart [Novolog Flexpen] 23 unit SQ AC 10/05/17 [History] Meloxicam 7.5 mg PO BID 10/05/17 [History] PANTOPRAZOLE 40 mg Tablet [Protonix 40MG Tablet] 40 mg PO DAILY 10/05/17 [History] Quinapril HCl 10 mg [Accupril 10MG Tablet] 10 mg PO BID 10/05/17 [History] Cyanocobalamin 500 Mcg [Vitamin B-12 500 MCG] 500 mcg PO DAILY 03/29/19 [History] Gabapentin 300 mg PO TID 03/29/19 [History] Travel Risk - International Travel Have you traveled outside of the country in past 3 weeks: No - Coronavirus Screening Are you exhibiting any of the following symptoms?: No Close contact with a COVID-19 positive Pt in past 14-21 Days: No - Review of Systems Constitutional: Weakness Eyes: No Symptoms Ears, Nose, & Throat: No Symptoms Respiratory: No Symptoms Cardiac: No Symptoms Abdominal/Gastrointestinal: Nausea, No Abdominal Pain, No Vomiting, No Diarrhea, No Constipation Genitourinary Symptoms: No Symptoms Musculoskeletal: No Symptoms Skin: No Symptoms Neurological: No Symptoms, Headache Psychological: No Symptoms Endocrine: No Symptoms Hematologic/Lymphatic: No Symptoms Immunological/Allergic: No Symptoms All Other Systems: Reviewed and Negative - Past Medical History Pertinent Past Medical History: Yes - Past Surgical History Past Surgical History: Yes - Nursing Vital Signs Nursing Vital Signs: Initial Vital Signs Temperature 97.8 F 10/12/22 11:41 Pulse Rate 66 10/12/22 11:41 Respiratory Rate 18 10/12/22 11:41 O2 Sat by Pulse Oximetry 99 10/12/22 11:41 Pain Scale Pain Intensity 0 - Physical Exam General Appearance: no apparent distress, alert, anxiety Eye Exam: PERRL/EOMI, eyes nml inspection Ears, Nose, Throat Exam: normal ENT inspection, dry mucous membranes Neck Exam: normal inspection, non-tender, supple, full range of motion Respiratory Exam: normal breath sounds, lungs clear, airway intact, No chest tenderness, No respiratory distress Cardiovascular Exam: regular rate/rhythm, normal heart sounds, normal peripheral pulses Gastrointestinal/Abdomen Exam: soft, normal bowel sounds, No tenderness Pelvic Exam: not done Rectal Exam: not done Back Exam: normal inspection, normal range of motion, No CVA tenderness, No vertebral tenderness Extremity Exam: normal inspection, normal range of motion, pelvis stable Neurologic Exam: alert, oriented x 3, cooperative, streaming media specialist II-XII nml as tested, normal mood/affect Skin Exam: normal color, warm, dry Lymphatic Exam: No adenopathy SpO2 Interpretation: normal O2 Delivery: Room Air - Course Nursing assessment & vital signs reviewed: Yes Ordered Tests: Active Orders 24 hr Category Date Time Status Recessing Machine Operator STAT Care 10/12/22 12:13 Active EKG-ER Only STAT Care 10/12/22 12:12 Active IV Insertion STAT Care 10/12/22 12:12 Active Pulse Oximetry (ED) STAT Care 10/12/22 12:12 Active CAROTID BILATERAL [US] Routine Exams 10/12/22 12:36 Completed CERVICAL SPINE WO CONTRAST [CT] Routine Exams 10/12/22 12:41 Completed CHEST 1 VIEW (PORTABLE) Routine Exams 10/12/22 12:43 Completed HEAD WITHOUT CONTRAST [CT] Routine Exams 10/12/22 12:41 Completed CBC W DIFF Stat Lab 10/12/22 12:15 Completed CMP Stat Lab 10/12/22 12:15 Completed CULTURE,URINE Stat Lab 10/12/22 12:16 Received PROTIME WITH INR Stat Lab 10/12/22 12:15 Completed TROPONIN Q4H Lab 10/12/22 12:15 Received TROPONIN Q4H Lab 10/12/22 16:15 Ordered TROPONIN Q4H Lab 10/12/22 20:15 Ordered UA W/RFX UR CULTURE Stat Lab 10/12/22 12:16 Completed Transfer Order Routine Transfer 10/12/22 Ordered Medication Summary Generic Name Dose Route Start Last Admin Trade Name Freq PRN Reason Stop Dose Admin Sodium Chloride 1,000 mls @ 100 mls/hr 10/12/22 12:15 10/12/22 12:42 Sodium Chloride 0.9% 1000 Ml IV 11/11/22 12:14 100 mls/hr .Q10H SONAL Administration Discontinued Medications Generic Name Dose Route Start Last Admin Trade Name Isatu PRN Reason Stop Dose Admin Ceftriaxone Sodium/Dextrose 1 g in 50 mls @ 100 mls/hr 10/12/22 15:14 10/12/22 15:54 Rocephin 1 Gm-D5w 50 Ml Bag IV 10/12/22 15:43 Infused STAT STA Infusion Ceftriaxone Sodium/Dextrose Confirm 10/12/22 15:19 Rocephin 1 Gm-D5w 50 Ml Bag Administered 10/12/22 15:20 Dose 1 g in 50 mls @ ud IV .[facility] Lab/Rad Data: Laboratory Result Diagrams 10/12/22 12:15 10/12/22 12:15 Laboratory Results 10/12/22 10/12/22 10/12/22 Range/Units 12:40 12:16 12:15 WBC (4.0-10.5) x10^3/uL RBC (4.1-5.4) x10^6/uL Hgb (12.0-16.0) g/dL Hct (35-47) % MCV (78-100) fL MCH (26-32) pg MCHC (32-36) g/dL RDW (11.5-14.0) % Plt Count (150-450) x10^3/uL MPV (7.5-11.0) fL Gran % (36.0-66.0) % Immature Gran % (Auto) (0.00-0.4) % Nucleat RBC Rel Count (0.00-0.1) % Eos # (Auto) (0-0.5) x10^3/uL Immature Gran # (Auto) (0.00-0.03) x10^3u/L Absolute Lymphs (auto) (1.0-4.6) x10^3/uL Absolute Monos (auto) (0.0-1.3) x10^3/uL Absolute Nucleated RBC (0.00-0.01) x10^3u/L Lymphocytes % (24.0-44.0) % Monocytes % (0.0-12.0) % Eosinophils % (0.00-5.0) % Basophils % (0.0-0.4) % Absolute Granulocytes (1.4-6.9) x10^3/uL Basophils # (0-0.4) x10^3/uL PT 11.1 (9.4-12.5) SECONDS INR 1.02 (0.8-3.0) Sodium (137-145) mmol/L Potassium (3.5-5.1) mmol/L Chloride (98-107) mmol/L Carbon Dioxide (22-30) mmol/L Anion Gap (5-15) MEQ/L BUN (7-17) mg/dL Creatinine (0.52-1.04) mg/dL Estimated GFR ML/MIN Glucose (74-106) mg/dL Calcium (8.4-10.2) mg/dL Total Bilirubin (0.2-1.3) mg/dL AST (14-36) U/L ALT (0-35) U/L Alkaline Phosphatase (38-126) U/L Serum Total Protein (6.3-8.2) g/dL Albumin (3.5-5.0) g/dL Urine Color Dark Yellow A (Yellow) Urine Appearance Turbid A (Clear) Urine pH 5.5 (4.6-8.0) Ur Specific [place] 1.015 (1.005-1.030) Urine Protein 30 (Negative) Urine Glucose (UA) Negative (Negative) mg/dL Urine Ketones 40 A (Negative) Urine Blood Large A (Negative) Urine Nitrite Negative (Negative) Urine Bilirubin Negative (Negative) Urine Urobilinogen 2.0 A (0.2) mg/dL Ur Leukocyte Esterase Moderate A (Negative) U Hyaline Cast (Auto) 3-5 A (0-2) /LPF Urine Microscopic RBC >100 A (0-5) /HPF Urine Microscopic WBC 51-100 A (0-5) /HPF Ur Epithelial Cells None Seen (None Seen) /HPF Urine Bacteria Many A (None Seen) /HPF Urine Culture Reflexed YES (NO) Influenza Type A Ag NEGATIVE (NEGATIVE) Influenza Type B Ag NEGATIVE (NEGATIVE) RSV (PCR) NEGATIVE (Negative) SARS-CoV-2 (PCR) NEGATIVE (NEGATIVE) 03/06/23 03/06/23 Range/Units 12:15 12:15 WBC 13.8 H (4.0-10.5) x10^3/uL RBC 4.13 (4.1-5.4) x10^6/uL Hgb 11.8 L (12.0-16.0) g/dL Hct 36.5 (35-47) % MCV 88.4 (78-100) fL MCH 28.6 (26-32) pg MCHC 32.3 (32-36) g/dL RDW 14.2 H (11.5-14.0) % Plt Count 257 (150-450) x10^3/uL MPV 10.5 (7.5-11.0) fL Gran % 82.9 H (36.0-66.0) % Immature Gran % (Auto) 0.7 H (0.00-0.4) % Nucleat RBC Rel Count 0.0 (0.00-0.1) % Eos # (Auto) 0.02 (0-0.5) x10^3/uL Immature Gran # (Auto) 0.09 H (0.00-0.03) x10^3u/L Absolute Lymphs (auto) 0.89 L (1.0-4.6) x10^3/uL Absolute Monos (auto) 1.29 (0.0-1.3) x10^3/uL Absolute Nucleated RBC 0.00 (0.00-0.01) x10^3u/L Lymphocytes % 6.5 L (24.0-44.0) % Monocytes % 9.4 (0.0-12.0) % Eosinophils % 0.1 (0.00-5.0) % Basophils % 0.4 (0.0-0.4) % Absolute Granulocytes 11.41 H (1.4-6.9) x10^3/uL Basophils # 0.05 (0-0.4) x10^3/uL PT (9.4-12.5) SECONDS INR (0.8-3.0) Sodium 139 (137-145) mmol/L Potassium 3.3 L (3.5-5.1) mmol/L Chloride 97 L (98-107) mmol/L Carbon Dioxide 36 H (22-30) mmol/L Anion Gap 9.5 (5-15) MEQ/L BUN 17 (7-17) mg/dL Creatinine 0.59 (0.52-1.04) mg/dL Estimated GFR > 60.0 ML/MIN Glucose 145 H (74-106) mg/dL Calcium 9.0 (8.4-10.2) mg/dL Total Bilirubin 1.40 H (0.2-1.3) mg/dL AST 24 (14-36) U/L ALT 14 (0-35) U/L Alkaline Phosphatase 97 (38-126) U/L Serum Total Protein 6.4 (6.3-8.2) g/dL Albumin 3.3 L (3.5-5.0) g/dL Urine Color (Yellow) Urine Appearance (Clear) Urine pH (4.6-8.0) Ur Specific [place] (1.005-1.030) Urine Protein (Negative) Urine Glucose (UA) (Negative) mg/dL Urine Ketones (Negative) Urine Blood (Negative) Urine Nitrite (Negative) Urine Bilirubin (Negative) Urine Urobilinogen (0.2) mg/dL Ur Leukocyte Esterase (Negative) U Hyaline Cast (Auto) (0-2) /LPF Urine Microscopic RBC (0-5) /HPF Urine Microscopic WBC (0-5) /HPF Ur Epithelial Cells (None Seen) /HPF Urine Bacteria (None Seen) /HPF Urine Culture Reflexed (NO) Influenza Type A Ag (NEGATIVE) Influenza Type B Ag (NEGATIVE) RSV (PCR) (Negative) SARS-CoV-2 (PCR) (NEGATIVE) - Progress Progress: improved, re-examined Progress Note: 10/12/22 16:01 CT scan of the head without contrast shows new (when compared to 2019 CT scan of the head) but remote infarcts present. CT scan of the cervical spine shows no acute fractures or subluxation. Carotid Dopplers showed no significant evidence of plaque or stenoses. This patient has medical issues of high complexity. She has multiple medical problems. Her past medical history was reviewed, as well as her medication list and medication allergy list. The work-up also was based on the history of present illness and findings on physical examination. The work-up included CT scan of the head and neck, intravenous line placement, intravenous fluid infusion, obtaining additional medical history from the patient's family member and paramedics, CBC, urinalysis, CMP, carotid Dopplers, twelve-lead EKG. I reviewed the results of these studies and discussed them with her primary care doctor, Dr. Epstein. Together we formulated a plan of placing the patient in the hospital under full admission. Patient has a urinary tract infection and this may be the underlying cause of her weakness and dizziness. We will obtain a discharge planning consultation as well as physical therapy consultation. We will provide her with Rocephin intravenously and repeat labs. Discussed with Dr.: Lin Counseled pt/family regarding: lab results, diagnosis, rad results Medical Desision Making - Independent Historian Additional History obtained from: Family, Digital Commentator/EMT - Discussion of managment Reviewed:: Test results, Need for additional workup Agreed on:: Treatment plan, need for follow-up - Diagnostic Testing Diagnostic test were ordered, analyzed, and reviewed by me: Yes Radiological Interpretation: Reviewed by me, Teleradiologist Report - Risk of complications The pt has a high risk of morbidity or mortality based on: Decision regarding hospitilization or escalation of hosp level of care - Departure Departure Disposition: In-patient Admission Clinical Impression: Weakness, Dizziness, Frequent falls, UTI (urinary tract infection) Condition: Stable Critical Care Time: No Referrals: RENETTA EPSTEIN MD [Primary Care Provider] - Follow up/PCP as directed
[2022-10-12] MEDS ORDERED: Sodium Chloride 0.9% 1000 ML 1,000 ML IV SCH (12:15)
[2022-10-12 12:35] LABS: Absolute Neutrophil Ct (ANC) 11.41 x10^3/uL (1.4-6.9); BASOPHIL % 0.4 % (0.0-0.4); Basophil (Absolute #) 0.05 x10^3/uL (0-0.4); Eosinophil % 0.1 % (0.00-5.0); Eosinophil (Absolute #) 0.02 x10^3/uL (0-0.5); Hematocrit 36.5 % (35-47); Hemoglobin 11.8 g/dL (12.0-16.0); IMMATURE GRAN # 0.09 x10^3u/L (0.00-0.03); IMMATURE GRAN % 0.7 % (0.00-0.4); Lymphocyte (Absolute #) 0.89 x10^3/uL (1.0-4.6); Lymphocytes % 6.5 % (24.0-44.0); Mean Cell Volume 88.4 fL (78-100); Mean Corpuscular Hemoglobin 28.6 pg (26-32); Mean Corpuscular Hgb Concent. 32.3 g/dL (32-36); Mean Platelet Volume 10.5 fL (7.5-11.0); Monocyte (Absolute #) 1.29 x10^3/uL (0.0-1.3); Monocytes % 9.4 % (0.0-12.0); Neutrophil % 82.9 % (36.0-66.0); Platelet Count 257 x10^3/uL (150-450); Red Blood Count 4.13 x10^6/uL (4.1-5.4); Red Cell Distribution Width 14.2 % (11.5-14.0); White Blood Count 13.8 x10^3/uL (4.0-10.5)
[2022-10-12] MEDS ORDERED: Sodium Chloride 0.9% 1000 ML 1,000 ML ONE (12:40)
[2022-10-12 13:05] LABS: Appearance Turbid (Clear); Bacteria Many /HPF (None Seen); Bilirubin Negative (Negative); Blood Large (Negative); Epithelial Cells None Seen /HPF (None Seen); Glucose, Urine Negative (Negative); Ketones 40 (Negative); Leukocyte Esterase Moderate (Negative); Nitrite Negative (Negative); Ph 5.5 (4.6-8.0); Protein,Urine Dip 30 (Negative); RBC >100 /HPF (0-5); Specific Gravity 1.015 (1.005-1.030); WBC 51-100 /HPF (0-5)
[2022-10-12 13:06] LABS: ADD URINE CULTURE? YES (NO)
--- NOTE | 2022-10-12 13:10 | XRAY ---
Indication: Vertigo. Status post fall. Two-dimensional sonogram and color Doppler imaging of the carotid arteries of the neck performed. Comparison: None Examination the right carotid circulation demonstrates minimal heterogeneous plaquing at the level of the bulb. Remaining common carotid, internal carotid, and external carotid arteries are widely patent. PSV of the CCA is 58 cm/s. PSV of the ICA 71 cm/s. ICA/CCA ratio is 1.2. Normal antegrade vertebral artery flow. Examination of the left carotid circulation demonstrates widely patent common carotid, carotid bulb, internal carotid, and external carotid arteries. PSV of the CCA is 51 cm/s. PSV of the ICA is 66 cm/s. ICA/CCA ratio is 1.3. Normal antegrade vertebral artery flow. Impression: Minimal plaquing right carotid bulb. Widely patent left carotid circulation. Velocity measurements and ratios are negative for hemodynamically significant flow-limiting stenosis.
[2022-10-12 13:19] LABS: INFLUENZA A NEGATIVE (NEGATIVE); INFLUENZA B NEGATIVE (NEGATIVE); RESPIRATORY SYNCTIAL VIRUS NEGATIVE (Negative); SARS-CoV-2 Xpert Express NEGATIVE (NEGATIVE)
[2022-10-12 13:29] LABS: ALBUMIN 3.3 g/dL (3.5-5.0); ALKALINE PHOSPHATASE 97 U/L (38-126); ANION GAP 9.5 MEQ/L (5-15); BLOOD UREA NITROGEN 17 mg/dL (7-17); CHLORIDE 97 mmol/L (98-107); Carbon Dioxide 36 mmol/L (22-30); Creatinine 1 0.59 mg/dL (0.52-1.04); EST GLOMERULAR FILTRATION RATE > 60.0 ML/MIN; Glucose 145 mg/dL (74-106); INR 1.02 (0.8-3.0); PROTIME 11.1 SECONDS (9.4-12.5); Potassium 3.3 mmol/L (3.5-5.1); SGOT/AST 24 U/L (14-36); SGPT/ALT 14 U/L (0-35); SODIUM 139 mmol/L (137-145); Total Protein 6.4 g/dL (6.3-8.2)
--- NOTE | 2022-10-12 13:32 | XRAY ---
Indication: Vertigo. Status post fall. Multiple contiguous images obtained through the head without contrast. Comparison: March 29, 2019 Again age-appropriate global atrophy with progressive worsening mild periventricular degenerative micro-ischemia bilaterally. Right basal ganglia demonstrates new remote lacunar infarcts. No acute intracranial hemorrhage, abnormal extra-axial fluid collection, or mass effect. Fourth ventricle is midline without hydrocephalus. Bony calvarium intact again with hyperostosis frontalis interna. Visualized paranasal sinuses and mastoid air cells are clear. Impression: Continued nonacute senile brain. New remote lacunar infarcts right basal ganglia.
--- NOTE | 2022-10-12 13:36 | XRAY ---
Indication: Status post fall. Multiple contiguous axial images obtained through the cervical spine. Sagittal and coronal reformatted images obtained. Comparison: September 15, 2015 Osseous structures remain demineralized. Axial images negative for acute fracture, suspicious bony lesions, or spinal canal stenosis. Progressive worsening mild/moderate multilevel degenerative endplate spurring, moderate multilevel bilateral degenerative facet hypertrophy, and moderate atlantoaxial degenerative changes. Sagittal and coronal reformatted images again demonstrate lordotic straightening and C5-C7 disc space loss. New mild levoscoliosis. New C3-C4 disc space loss with 3 mm C3 anterolisthesis. No acute compression fracture, subluxation, or jumped facet. Normal appearing craniocervical junction. Visualized noncontrasted soft tissues demonstrates minimal bilateral carotid calcifications. Stable heterogeneous thyroid gland. Lung apices are clear. Impression: 1. Continued negative acute fracture. 2. Again osteopenia with progressive worsening multilevel degenerative changes including new minimal grade 1 C3 anterolisthesis. 3. Stable heterogeneous thyroid gland.
--- NOTE | 2022-10-12 13:48 | XRAY ---
Indication: Short of breath. Vertigo. Comparison: August 31, 2019 Portable chest less inflated with subsequent minimal bibasilar subsegmental atelectasis. Remaining heart and upper lungs unremarkable. Bony thorax intact again with osteopenia and degenerative changes.
[2022-10-12] MEDS ORDERED: ROCEPHIN 1 Gm-D5w 50 ml Bag** 1 G/50 ML IVPB IV STA (15:14)
[2022-10-12] MEDS ORDERED: ROCEPHIN 1 Gm-D5w 50 ml Bag** 1 G/50 ML IVPB IV ONE (15:19)
[2022-10-12] MEDS ORDERED: TYLENOL 325 MG PO PRN (17:39)
[2022-10-12] MEDS ORDERED: Zofran 4 MG/2 ML VIAL IV PRN (17:39)
--- NOTE | 2022-10-12 17:46 | PCM.HP ---
History of Present Illness - Chief Complaint Chief Complaint: c/o weakness and dizziness for 2-3 days History of Present Illness: is a 76 year old female.was brought into the emergency room by paramedics because of increasing vertigo, falling and weakness. Additional history was obtained from the paramedics and family member. Patient states in the last 2 to 3 weeks she has fallen twice hitting her head and she complains of a headache and some neck pain. Patient was seen by her primary doctor who prescribed her medicine to help with the dizziness which did not help. He was also going to order bilateral carotid Dopplers which have not been ordered yet. Because of her increasing weakness, unsteadiness on her feet and falling as well as her vertigo and occasional headaches and nausea patient called an ambulance to bring her to the emergency department. She denies chest pain. She denies headache at this time. She denies visual changes. She denies abdominal pain. She has had no vomiting or diarrhea. Patient has a history of hyperlipidemia, hypertension, diabetes and gastroesophageal reflux disease and atrial fibrillation. Timing/Duration: week(s), worse Severity: mild (To moderate) Associated Symptoms: nausea, headaches, weakness, No vomiting, No abdominal pain, No shortness of breath, No chest pain, No fever - Review of Systems Constitutional: Lethargy, Weakness, No Fever, No Chills Eyes: No Symptoms Ears, Nose, & Throat: No Symptoms Respiratory: No Cough, No Short Of Breath Cardiac: No Chest Pain, No Edema, No Syncope Abdominal/Gastrointestinal: No Abdominal Pain, No Nausea, No Vomiting, No Diarrhea Genitourinary Symptoms: No Dysuria Musculoskeletal: No Back Pain, No Neck Pain Skin: No Rash Neurological: No Dizziness, No Focal Weakness, No Sensory Changes Psychological: No Symptoms Endocrine: No Symptoms Hematologic/Lymphatic: No Symptoms Immunological/Allergic: No Symptoms Medications & Allergies Home Medications: Home Medication List Carvedilol [Coreg ] 6.25 mg PO DAILY 07/18/12 [History Confirmed 06/01/22] Vitamin E Acid Succinate [Vitamin E] 400 unit PO DAILY 07/18/12 [History Confirmed 06/01/22] Atorvastatin Calcium 80 mg PO HS 06/22/17 [History Confirmed 06/01/22] Aspirin [Aspirin EC] 81 mg PO DAILY 10/05/17 [History Confirmed 06/01/22] Citalopram Hydrobromide [Citalopram HBr] 40 mg PO DAILY 10/05/17 [History Confirmed 06/01/22] Clopidogrel Bisulfate [Clopidogrel] 75 mg PO DAILY 10/05/17 [History Confirmed 06/01/22] Insulin Aspart [Novolog Flexpen] 23 unit SQ AC 10/05/17 [History Confirmed 06/01/22] Meloxicam 7.5 mg PO BID 10/05/17 [History Confirmed 06/01/22] PANTOPRAZOLE 40 mg Tablet [Protonix 40MG Tablet] 40 mg PO DAILY 10/05/17 [History Confirmed 06/01/22] Quinapril HCl 10 mg [Accupril 10MG Tablet] 10 mg PO BID 10/05/17 [History Confirmed 06/01/22] Cyanocobalamin 500 Mcg [Vitamin B-12 500 MCG] 500 mcg PO DAILY 03/29/19 [History Confirmed 06/01/22] Gabapentin 300 mg PO TID 03/29/19 [History Confirmed 06/01/22] Allergies/Adverse Reactions: Allergies Allergy/AdvReac Type Severity Reaction Status Date / Time Sulfa (Sulfonamide Allergy Severe Tightness Verified 10/12/22 12:35 Antibiotics) of Throat [Sulfa(Sulfonamide Antibiotics)] Iodinated Contrast Media Allergy Intermediate Rash Verified 10/12/22 12:35 [IV Dye, Iodine Containing Contrast ] iodine Allergy Intermediate Rash Verified 10/12/22 12:35 levofloxacin [From Levaquin] Allergy Intermediate Rash Verified 10/12/22 12:35 Penicillins Allergy Intermediate Swelling Verified 10/12/22 12:35 codeine [Codeine] Allergy Unknown Verified 10/12/22 12:35 oxytetracycline Allergy Unknown Verified 10/12/22 12:35 [From Terramycin] oxytetracycline HCl Allergy Unknown Verified 10/12/22 12:35 [From Terramycin] - Past Medical History Past Medical History: Yes Neurological History: No Pertinent History ENT History: No Pertinent History Cardiac History: Arrhythmia, High Cholesterol, Hypertension Respiratory History: COPD Endocrine Medical History: No Pertinent History Musculoskelatal History: No Pertinent History GI Medical History: No Pertinent History History: No Pertinent History Pyscho-Social History: No Pertinent History Reproductive Disorders: No Pertinent History Comment: 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 2L O2 ALL THE TIME. 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 HEART SURGERY. - Past Surgical History Past Surgical History: Yes Neuro Surgical History: No Pertinent History Cardiac History: No Pertinent History Respiratory Surgery: No Pertinent History GI Surgical History: No Pertinent History Genitourinary Surgical Hx: No Pertinent History Musculskeletal Surgical Hx: Orthopedic Surgery Female Surgical History: No Pertinent History Other Surgical History: Right hip and femur surgery - Social History Smoking Status: Never smoker Exposure to second hand smoke: No Alcohol: None Drug Use: none - Physical Exam Vital Signs: Vital Signs - 24 hr Temp Pulse Resp BP Pulse Ox 10/12/22 17:23 98.7 F 69 16 134/60 100 10/12/22 17:00 86 18 97 10/12/22 16:00 70 18 153/67 100 10/12/22 15:08 67 18 148/71 100 10/12/22 14:15 65 18 130/62 100 10/12/22 12:16 100 10/12/22 11:41 97.8 F 66 18 99 General Appearance: no apparent distress, alert Neurologic Exam: alert, oriented x 3, cooperative, normal mood/affect, nml cerebellar function, nml station & gait, sensation nml, No motor deficits Eye Exam: PERRL/EOMI, eyes nml inspection Ears, Nose, Throat Exam: normal ENT inspection, TMs normal, pharynx normal, moist mucous membranes Neck Exam: normal inspection, non-tender, supple, full range of motion Respiratory Exam: normal breath sounds, lungs clear, No respiratory distress Cardiovascular Exam: regular rate/rhythm, normal heart sounds, normal peripheral pulses Gastrointestinal/Abdomen Exam: soft, normal bowel sounds, No tenderness, No mass Back Exam: normal inspection, normal range of motion, No CVA tenderness, No vertebral tenderness Extremity Exam: normal inspection, normal range of motion, pelvis stable Skin Exam: normal color, warm, dry, No rash Lymphatic Exam: No adenopathy Results - Labs Lab/Micro Results: Lab Results-Last 24 Hours 10/12/22 10/12/22 10/12/22 Range/Units 12:15 12:15 12:15 WBC 13.8 H (4.0-10.5) x10^3/uL RBC 4.13 (4.1-5.4) x10^6/uL Hgb 11.8 L (12.0-16.0) g/dL Hct 36.5 (35-47) % MCV 88.4 (78-100) fL MCH 28.6 (26-32) pg MCHC 32.3 (32-36) g/dL RDW 14.2 H (11.5-14.0) % Plt Count 257 (150-450) x10^3/uL MPV 10.5 (7.5-11.0) fL Gran % 82.9 H (36.0-66.0) % Immature Gran % (Auto) 0.7 H (0.00-0.4) % Nucleat RBC Rel Count 0.0 (0.00-0.1) % Eos # (Auto) 0.02 (0-0.5) x10^3/uL Immature Gran # (Auto) 0.09 H (0.00-0.03) x10^3u/L Absolute Lymphs (auto) 0.89 L (1.0-4.6) x10^3/uL Absolute Monos (auto) 1.29 (0.0-1.3) x10^3/uL Absolute Nucleated RBC 0.00 (0.00-0.01) x10^3u/L Lymphocytes % 6.5 L (24.0-44.0) % Monocytes % 9.4 (0.0-12.0) % Eosinophils % 0.1 (0.00-5.0) % Basophils % 0.4 (0.0-0.4) % Absolute Granulocytes 11.41 H (1.4-6.9) x10^3/uL Basophils # 0.05 (0-0.4) x10^3/uL PT 11.1 (9.4-12.5) SECONDS INR 1.02 (0.8-3.0) Sodium 139 (137-145) mmol/L Potassium 3.3 L (3.5-5.1) mmol/L Chloride 97 L (98-107) mmol/L Carbon Dioxide 36 H (22-30) mmol/L Anion Gap 9.5 (5-15) MEQ/L BUN 17 (7-17) mg/dL Creatinine 0.59 (0.52-1.04) mg/dL Estimated GFR > 60.0 ML/MIN Glucose 145 H (74-106) mg/dL Calcium 9.0 (8.4-10.2) mg/dL Total Bilirubin 1.40 H (0.2-1.3) mg/dL AST 24 (14-36) U/L ALT 14 (0-35) U/L Alkaline Phosphatase 97 (38-126) U/L Troponin I (0.000-0.034) ng/mL Serum Total Protein 6.4 (6.3-8.2) g/dL Albumin 3.3 L (3.5-5.0) g/dL Urine Color (Yellow) Urine Appearance (Clear) Urine pH (4.6-8.0) Ur Specific [place] (1.005-1.030) Urine Protein (Negative) Urine Glucose (UA) (Negative) mg/dL Urine Ketones (Negative) Urine Blood (Negative) Urine Nitrite (Negative) Urine Bilirubin (Negative) Urine Urobilinogen (0.2) mg/dL Ur Leukocyte Esterase (Negative) U Hyaline Cast (Auto) (0-2) /LPF Urine Microscopic RBC (0-5) /HPF Urine Microscopic WBC (0-5) /HPF Ur Epithelial Cells (None Seen) /HPF Urine Bacteria (None Seen) /HPF Urine Culture Reflexed (NO) Influenza Type A Ag (NEGATIVE) Influenza Type B Ag (NEGATIVE) RSV (PCR) (Negative) SARS-CoV-2 (PCR) (NEGATIVE) 10/12/22 10/12/22 10/12/22 Range/Units 12:15 12:16 12:40 WBC (4.0-10.5) x10^3/uL RBC (4.1-5.4) x10^6/uL Hgb (12.0-16.0) g/dL Hct (35-47) % MCV (78-100) fL MCH (26-32) pg MCHC (32-36) g/dL RDW (11.5-14.0) % Plt Count (150-450) x10^3/uL MPV (7.5-11.0) fL Gran % (36.0-66.0) % Immature Gran % (Auto) (0.00-0.4) % Nucleat RBC Rel Count (0.00-0.1) % Eos # (Auto) (0-0.5) x10^3/uL Immature Gran # (Auto) (0.00-0.03) x10^3u/L Absolute Lymphs (auto) (1.0-4.6) x10^3/uL Absolute Monos (auto) (0.0-1.3) x10^3/uL Absolute Nucleated RBC (0.00-0.01) x10^3u/L Lymphocytes % (24.0-44.0) % Monocytes % (0.0-12.0) % Eosinophils % (0.00-5.0) % Basophils % (0.0-0.4) % Absolute Granulocytes (1.4-6.9) x10^3/uL Basophils # (0-0.4) x10^3/uL PT (9.4-12.5) SECONDS INR (0.8-3.0) Sodium (137-145) mmol/L Potassium (3.5-5.1) mmol/L Chloride (98-107) mmol/L Carbon Dioxide (22-30) mmol/L Anion Gap (5-15) MEQ/L BUN (7-17) mg/dL Creatinine (0.52-1.04) mg/dL Estimated GFR ML/MIN Glucose (74-106) mg/dL Calcium (8.4-10.2) mg/dL Total Bilirubin (0.2-1.3) mg/dL AST (14-36) U/L ALT (0-35) U/L Alkaline Phosphatase (38-126) U/L Troponin I < 0.012 (0.000-0.034) ng/mL Serum Total Protein (6.3-8.2) g/dL Albumin (3.5-5.0) g/dL Urine Color Dark Yellow A (Yellow) Urine Appearance Turbid A (Clear) Urine pH 5.5 (4.6-8.0) Ur Specific [place] 1.015 (1.005-1.030) Urine Protein 30 (Negative) Urine Glucose (UA) Negative (Negative) mg/dL Urine Ketones 40 A (Negative) Urine Blood Large A (Negative) Urine Nitrite Negative (Negative) Urine Bilirubin Negative (Negative) Urine Urobilinogen 2.0 A (0.2) mg/dL Ur Leukocyte Esterase Moderate A (Negative) U Hyaline Cast (Auto) 3-5 A (0-2) /LPF Urine Microscopic RBC >100 A (0-5) /HPF Urine Microscopic WBC 51-100 A (0-5) /HPF Ur Epithelial Cells None Seen (None Seen) /HPF Urine Bacteria Many A (None Seen) /HPF Urine Culture Reflexed YES (NO) Influenza Type A Ag NEGATIVE (NEGATIVE) Influenza Type B Ag NEGATIVE (NEGATIVE) RSV (PCR) NEGATIVE (Negative) SARS-CoV-2 (PCR) NEGATIVE (NEGATIVE) 10/12/22 Range/Units 16:27 WBC (4.0-10.5) x10^3/uL RBC (4.1-5.4) x10^6/uL Hgb (12.0-16.0) g/dL Hct (35-47) % MCV (78-100) fL MCH (26-32) pg MCHC (32-36) g/dL RDW (11.5-14.0) % Plt Count (150-450) x10^3/uL MPV (7.5-11.0) fL Gran % (36.0-66.0) % Immature Gran % (Auto) (0.00-0.4) % Nucleat RBC Rel Count (0.00-0.1) % Eos # (Auto) (0-0.5) x10^3/uL Immature Gran # (Auto) (0.00-0.03) x10^3u/L Absolute Lymphs (auto) (1.0-4.6) x10^3/uL Absolute Monos (auto) (0.0-1.3) x10^3/uL Absolute Nucleated RBC (0.00-0.01) x10^3u/L Lymphocytes % (24.0-44.0) % Monocytes % (0.0-12.0) % Eosinophils % (0.00-5.0) % Basophils % (0.0-0.4) % Absolute Granulocytes (1.4-6.9) x10^3/uL Basophils # (0-0.4) x10^3/uL PT (9.4-12.5) SECONDS INR (0.8-3.0) Sodium (137-145) mmol/L Potassium (3.5-5.1) mmol/L Chloride (98-107) mmol/L Carbon Dioxide (22-30) mmol/L Anion Gap (5-15) MEQ/L BUN (7-17) mg/dL Creatinine (0.52-1.04) mg/dL Estimated GFR ML/MIN Glucose (74-106) mg/dL Calcium (8.4-10.2) mg/dL Total Bilirubin (0.2-1.3) mg/dL AST (14-36) U/L ALT (0-35) U/L Alkaline Phosphatase (38-126) U/L Troponin I < 0.012 (0.000-0.034) ng/mL Serum Total Protein (6.3-8.2) g/dL Albumin (3.5-5.0) g/dL Urine Color (Yellow) Urine Appearance (Clear) Urine pH (4.6-8.0) Ur Specific [place] (1.005-1.030) Urine Protein (Negative) Urine Glucose (UA) (Negative) mg/dL Urine Ketones (Negative) Urine Blood (Negative) Urine Nitrite (Negative) Urine Bilirubin (Negative) Urine Urobilinogen (0.2) mg/dL Ur Leukocyte Esterase (Negative) U Hyaline Cast (Auto) (0-2) /LPF Urine Microscopic RBC (0-5) /HPF Urine Microscopic WBC (0-5) /HPF Ur Epithelial Cells (None Seen) /HPF Urine Bacteria (None Seen) /HPF Urine Culture Reflexed (NO) Influenza Type A Ag (NEGATIVE) Influenza Type B Ag (NEGATIVE) RSV (PCR) (Negative) SARS-CoV-2 (PCR) (NEGATIVE) - Radiology Impressions Radiology Exams & Impressions: Radiology Procedures Category Date Time Status CAROTID BILATERAL [US] Routine Exams 10/12/22 12:36 Completed CERVICAL SPINE WO CONTRAST [CT] Routine Exams 10/12/22 12:41 Completed CHEST 1 VIEW (PORTABLE) Routine Exams 10/12/22 12:43 Completed HEAD WITHOUT CONTRAST [CT] Routine Exams 10/12/22 12:41 Completed Assessment/Plan (1) UTI (urinary tract infection) Current Visit: Yes Status: Acute Qualifiers: Urinary tract infection type: acute pyelonephritis Qualified Code(s): N10 - Acute pyelonephritis Assessment & Plan: Chief Complaint Diagnosis UTI Allergies Allergy/AdvReac Type Severity Reaction Status Date / Time Sulfa (Sulfonamide Allergy Severe Tightness Verified 10/12/22 12:35 Antibiotics) of Throat [Sulfa(Sulfonamide Antibiotics)] Iodinated Contrast Media Allergy Intermediate Rash Verified 10/12/22 12:35 [IV Dye, Iodine Containing Contrast ] iodine Allergy Intermediate Rash Verified 10/12/22 12:35 levofloxacin [From Levaquin] Allergy Intermediate Rash Verified 10/12/22 12:35 Penicillins Allergy Intermediate Swelling Verified 10/12/22 12:35 codeine [Codeine] Allergy Unknown Verified 10/12/22 12:35 oxytetracycline Allergy Unknown Verified 10/12/22 12:35 [From Terramycin] oxytetracycline HCl Allergy Unknown Verified 10/12/22 12:35 [From Terramycin] Vital Signs (Last 24 hours) Temp Pulse Resp BP Pulse Ox 10/12/22 17:23 98.7 F 69 16 134/60 100 10/12/22 17:00 86 18 97 10/12/22 16:00 70 18 153/67 100 10/12/22 15:08 67 18 148/71 100 10/12/22 14:15 65 18 130/62 100 10/12/22 12:16 100 10/12/22 11:41 97.8 F 66 18 99 Current Medications Generic Name Dose Route Start Last Admin Trade Name Freq PRN Reason Stop Dose Admin Acetaminophen 650 mg 10/12/22 17:39 Acetaminophen 325 Mg Tablet PO 11/11/22 17:38 Q4H PRN PRN PAIN, FEVER, HEADACHE Ceftriaxone Sodium/Dextrose 1 g in 50 mls @ 100 mls/hr 10/13/22 10:00 Rocephin 1 Gm-D5w 50 Ml Bag IV 10/16/22 09:59 Q24H10 SONAL Sodium Chloride 1,000 mls @ 50 mls/hr 10/12/22 17:39 Sodium Chloride 0.9% 1000 Ml IV 11/11/22 17:38 .Q20H SONAL Ondansetron HCl 4 mg 10/12/22 17:39 Ondansetron Hcl 4 Mg/2 Ml Vial IV 11/11/22 17:38 Q6H PRN PRN NAUSEA/VOMITING Discontinued Medications Generic Name Dose Route Start Last Admin Trade Name Freq PRN Reason Stop Dose Admin Sodium Chloride 1,000 mls @ 100 mls/hr 10/12/22 12:15 10/12/22 12:42 Sodium Chloride 0.9% 1000 Ml IV 11/11/22 12:14 100 mls/hr .Q10H SONAL Administration Ceftriaxone Sodium/Dextrose 1 g in 50 mls @ 100 mls/hr 10/12/22 15:14 10/12/22 15:54 Rocephin 1 Gm-D5w 50 Ml Bag IV 10/12/22 15:43 Infused STAT STA Infusion Ceftriaxone Sodium/Dextrose Confirm 10/12/22 15:19 Rocephin 1 Gm-D5w 50 Ml Bag Administered 10/12/22 15:20 Dose 1 g in 50 mls @ ud IV .STK-MED ONE Sodium Chloride Confirm 10/12/22 12:40 Sodium Chloride 0.9% 1000 Ml Administered 10/12/22 12:41 Dose 1,000 mls @ ud .ROUTE .STK-MED ONE Intake & Output (Last 24 hours) 10/10/22 10/11/22 10/12/22 10/13/22 11:59 11:59 11:59 11:59 Weight 65.771 kg 63.7 kg Microbiology Results (Last 24 hours) 10/12/22 12:16 Urine, Catheterized Urine Culture - Pending Laboratory Results (Last 24 hours) 10/12/22 10/12/22 10/12/22 16:27 12:40 12:16 WBC RBC Hgb Hct MCV MCH MCHC RDW Plt Count MPV Gran % Immature Gran % (Auto) Nucleat RBC Rel Count Eos # (Auto) Immature Gran # (Auto) Absolute Lymphs (auto) Absolute Monos (auto) Absolute Nucleated RBC Lymphocytes % Monocytes % Eosinophils % Basophils % Absolute Granulocytes Basophils # PT INR Sodium Potassium Chloride Carbon Dioxide Anion Gap BUN Creatinine Estimated GFR Glucose Calcium Total Bilirubin AST ALT Alkaline Phosphatase Troponin I < 0.012 Serum Total Protein Albumin Urine Color Dark Yellow A Urine Appearance Turbid A Urine pH 5.5 Ur Specific [place] 1.015 Urine Protein 30 Urine Glucose (UA) Negative Urine Ketones 40 A Urine Blood Large A Urine Nitrite Negative Urine Bilirubin Negative Urine Urobilinogen 2.0 A Ur Leukocyte Esterase Moderate A U Hyaline Cast (Auto) 3-5 A Urine Microscopic RBC >100 A Urine Microscopic WBC 51-100 A Ur Epithelial Cells None Seen Urine Bacteria Many A Urine Culture Reflexed YES Influenza Type A Ag NEGATIVE Influenza Type B Ag NEGATIVE RSV (PCR) NEGATIVE SARS-CoV-2 (PCR) NEGATIVE 10/12/22 10/12/22 10/12/22 12:15 12:15 12:15 WBC RBC Hgb Hct MCV MCH MCHC RDW Plt Count MPV Gran % Immature Gran % (Auto) Nucleat RBC Rel Count Eos # (Auto) Immature Gran # (Auto) Absolute Lymphs (auto) Absolute Monos (auto) Absolute Nucleated RBC Lymphocytes % Monocytes % Eosinophils % Basophils % Absolute Granulocytes Basophils # PT 11.1 INR 1.02 Sodium 139 Potassium 3.3 L Chloride 97 L Carbon Dioxide 36 H Anion Gap 9.5 BUN 17 Creatinine 0.59 Estimated GFR > 60.0 Glucose 145 H Calcium 9.0 Total Bilirubin 1.40 H AST 24 ALT 14 Alkaline Phosphatase 97 Troponin I < 0.012 Serum Total Protein 6.4 Albumin 3.3 L Urine Color Urine Appearance Urine pH Ur Specific [place] Urine Protein Urine Glucose (UA) Urine Ketones Urine Blood Urine Nitrite Urine Bilirubin Urine Urobilinogen Ur Leukocyte Esterase U Hyaline Cast (Auto) Urine Microscopic RBC Urine Microscopic WBC Ur Epithelial Cells Urine Bacteria Urine Culture Reflexed Influenza Type A Ag Influenza Type B Ag RSV (PCR) SARS-CoV-2 (PCR) 10/12/22 12:15 WBC 13.8 H RBC 4.13 Hgb 11.8 L Hct 36.5 MCV 88.4 MCH 28.6 MCHC 32.3 RDW 14.2 H Plt Count 257 MPV 10.5 Gran % 82.9 H Immature Gran % (Auto) 0.7 H Nucleat RBC Rel Count 0.0 Eos # (Auto) 0.02 Immature Gran # (Auto) 0.09 H Absolute Lymphs (auto) 0.89 L Absolute Monos (auto) 1.29 Absolute Nucleated RBC 0.00 Lymphocytes % 6.5 L Monocytes % 9.4 Eosinophils % 0.1 Basophils % 0.4 Absolute Granulocytes 11.41 H Basophils # 0.05 PT INR Sodium Potassium Chloride Carbon Dioxide Anion Gap BUN Creatinine Estimated GFR Glucose Calcium Total Bilirubin AST ALT Alkaline Phosphatase Troponin I Serum Total Protein Albumin Urine Color Urine Appearance Urine pH Ur Specific [place] Urine Protein Urine Glucose (UA) Urine Ketones Urine Blood Urine Nitrite Urine Bilirubin Urine Urobilinogen Ur Leukocyte Esterase U Hyaline Cast (Auto) Urine Microscopic RBC Urine Microscopic WBC Ur Epithelial Cells Urine Bacteria Urine Culture Reflexed Influenza Type A Ag Influenza Type B Ag RSV (PCR) SARS-CoV-2 (PCR) Orders (Last 24 hours) Category Date Time Status Bedrest TOLERATED Activity 10/12/22 17:39 Active Admit as Inpatient ROUTINE Care 10/12/22 17:39 Active Credit Balance Specialist STAT Care 10/12/22 12:13 Completed EKG-ER Only STAT Care 10/12/22 12:12 Completed Elevate HOB TOLERATED Care 10/12/22 17:39 Active IV Insertion STAT Care 10/12/22 12:12 Completed Pulse Oximetry (ED) STAT Care 10/12/22 12:12 Completed Weight,Daily 0600 Care 10/12/22 17:39 Active Heart-Healthy Diet Diet 10/12/22 Dinner Active Discharge Planning,Consult Routine Discharge 10/12/22 17:39 Active CAROTID BILATERAL [US] Routine Exams 10/12/22 12:36 Completed CERVICAL SPINE WO CONTRAST [CT] Routine Exams 10/12/22 12:41 Completed CHEST 1 VIEW (PORTABLE) Routine Exams 10/12/22 12:43 Completed HEAD WITHOUT CONTRAST [CT] Routine Exams 10/12/22 12:41 Completed CBC W DIFF AM.LAB Lab 10/13/22 04:00 Ordered CBC W DIFF Stat Lab 10/12/22 12:15 Completed CMP AM.LAB Lab 10/13/22 04:00 Ordered CMP Stat Lab 10/12/22 12:15 Completed COVID/FLU/RSV Panel Stat Lab 10/12/22 12:40 Completed CULTURE,URINE Stat Lab 10/12/22 12:16 Received PROTIME WITH INR Stat Lab 10/12/22 12:15 Completed TROPONIN Q4H Lab 10/12/22 12:15 Completed TROPONIN Q4H Lab 10/12/22 16:27 Completed TROPONIN Q4H Lab 10/12/22 20:15 Ordered UA W/RFX UR CULTURE Stat Lab 10/12/22 12:16 Completed Acetaminophen 325 mg [Tylenol 325 mg] Med 10/12/22 17:39 Ordered 650 mg PO Q4H PRN PRN Ceftriaxone 1 GM/50 ML PREMIX* [ROCEPHIN 1 Gm-D5w 50 ml Med 10/13/22 10:00 Ordered Bag] 1 g in 50 ml IV Q24H10 Ceftriaxone 1 GM/50 ML PREMIX* [ROCEPHIN 1 Gm-D5w 50 ml Med 10/12/22 15:14 Discontinued Bag] 1 g in 50 ml IV STAT Ceftriaxone 1 GM/50 ML PREMIX* [ROCEPHIN 1 Gm-D5w 50 ml Med 10/12/22 15:19 Discontinued Bag] 1 g in 50 ml IV UD NaCl 0.9% 1000 ml [Sodium Chloride 0.9% 1000 ML] 1,000 Med 10/12/22 12:40 Discontinued ml .ROUTE UD NaCl 0.9% 1000 ml [Sodium Chloride 0.9% 1000 ML] 1,000 Med 10/12/22 12:15 Discontinued ml IV 100 mls/hr NaCl 0.9% 1000 ml [Sodium Chloride 0.9% 1000 ML] 1,000 Med 10/12/22 17:39 Ordered ml IV 50 mls/hr Ondansetron HCl 4 mg/2 ml [Zofran 4 MG/2 ML VIAL] Med 10/12/22 17:39 Ordered 4 mg IV Q6H PRN PRN Pulse Oximetry ROUTINE RT 10/12/22 17:39 Active Transfer Order Routine Transfer 10/12/22 Completed Code(s): N39.0 - URINARY TRACT INFECTION, SITE NOT SPECIFIED (2) Dizziness Current Visit: Yes Status: Acute Code(s): R42 - DIZZINESS AND GIDDINESS (3) Weakness Current Visit: Yes Status: Acute Code(s): R53.1 - WEAKNESS
[2022-10-12] MEDS: Sodium Chloride 0.9% 1000 ML 1,000 ML IV SCH (19:00)
[2022-10-12] MEDS: NEURONTIN PO SCH (21:21)
[2022-10-12] MEDS: ULTRAM 50 MG PO PRN (21:21)
[2022-10-12] MEDS: Lantus Insulin SQ SCH (21:22)
[2022-10-12] MEDS ORDERED: THEOPHYLLINE ER 24HR PO SCH (22:00)
[2022-10-12] MEDS ORDERED: PROVENTIL 2.5 MG/3 ML NEB IH PRN (22:44)
[2022-10-13] MEDS: Sodium Chloride 0.9% 1000 ML 1,000 ML IV SCH (04:01)
[2022-10-13 04:56] LABS: Hematocrit 34.1 % (35-47); Hemoglobin 11.1 g/dL (12.0-16.0); Mean Cell Volume 87.9 fL (78-100); Mean Corpuscular Hemoglobin 28.6 pg (26-32); Mean Corpuscular Hgb Concent. 32.6 g/dL (32-36); Mean Platelet Volume 9.8 fL (7.5-11.0); Platelet Count 256 x10^3/uL (150-450); Red Blood Count 3.88 x10^6/uL (4.1-5.4); Red Cell Distribution Width 14.2 % (11.5-14.0); White Blood Count 14.1 x10^3/uL (4.0-10.5)
[2022-10-13 05:04] LABS: ALBUMIN 3.1 g/dL (3.5-5.0); ALKALINE PHOSPHATASE 88 U/L (38-126); ANION GAP 8.7 MEQ/L (5-15); BLOOD UREA NITROGEN 15 mg/dL (7-17); CHLORIDE 99 mmol/L (98-107); Calcium 8.6 mg/dL (8.4-10.2); Carbon Dioxide 33 mmol/L (22-30); Creatinine 1 0.55 mg/dL (0.52-1.04); EST GLOMERULAR FILTRATION RATE > 60.0 ML/MIN; Glucose 101 mg/dL (74-106); Potassium 3.1 mmol/L (3.5-5.1); SGOT/AST 23 U/L (14-36); SGPT/ALT 13 U/L (0-35); SODIUM 137 mmol/L (137-145)
[2022-10-13 05:42] LABS: Absolute Neutrophil Ct (ANC) 10.55 x10^3/uL (1.4-6.9); BASOPHIL % 0.5 % (0.0-0.4); Basophil (Absolute #) 0.07 x10^3/uL (0-0.4); Eosinophil % 0.6 % (0.00-5.0); Eosinophil (Absolute #) 0.09 x10^3/uL (0-0.5); IMMATURE GRAN # 0.08 x10^3u/L (0.00-0.03); IMMATURE GRAN % 0.6 % (0.00-0.4); Lymphocyte (Absolute #) 1.27 x10^3/uL (1.0-4.6); Monocyte (Absolute #) 1.99 x10^3/uL (0.0-1.3); Monocytes % 14.2 % (0.0-12.0); Neutrophil % 75.1 % (36.0-66.0)
[2022-10-13 05:43] LABS: Slide Review 1 YES
[2022-10-13] MEDS ORDERED: MILK OF MAGNESIA 30 ML PO PRN (07:09)
[2022-10-13] MEDS: Vitamin E 400 UNIT SOFTGEL PO SCH (09:57)
[2022-10-13] MEDS: Protonix 40MG Tablet PO SCH (09:58)
[2022-10-13] MEDS: NEURONTIN PO SCH ×3 (09:58→20:45)
[2022-10-13] MEDS: Coreg PO SCH (09:58)
[2022-10-13] MEDS: Accupril 10MG Tablet PO SCH (09:58)
[2022-10-13] MEDS: Vitamin B-12 500 MCG PO SCH (09:59)
[2022-10-13] MEDS: ceLEXa 20 MG PO SCH (09:59)
[2022-10-13] MEDS: ROCEPHIN 1 Gm-D5w 50 ml Bag** 1 G/50 ML IVPB IV SCH (09:59)
[2022-10-13] MEDS ORDERED: [UNRECOGNIZED DRUG - OTHER] PO SCH (10:00)
[2022-10-13] MEDS ORDERED: NON-FORMULARY ITEM (Theophylline Anhydrous [Theophylline Er] 300 MG Tab.Er.12h) PO SCH (10:00)
[2022-10-13] MEDS ORDERED: MEDICATION INTERVENTION MC SCH (10:00)
[2022-10-13] MEDS: PATIENT OWN MEDICATION PO SCH ×2 (10:12→20:45)
[2022-10-13] MEDS: Advair Hfa 230/21 Mcg COMMON CANISTER IH SCH ×2 (10:50→18:00)
[2022-10-13] MEDS ORDERED: VENTOLIN COMMON CANISTER IH PRN (11:44)
[2022-10-13] MEDS ORDERED: HUMULIN R SQ PRN (11:52)
--- NOTE | 2022-10-13 12:38 | PCM.NOTE ---
Date and Time: 10/13/22 1235 Subjective Assessment: still very wesk - Review of Systems Constitutional: Weakness, No Fever, No Chills Eyes: No Symptoms Ears, Nose, & Throat: No Symptoms Respiratory: No Cough, No Short Of Breath Cardiac: No Chest Pain, No Edema, No Syncope Abdominal/Gastrointestinal: No Abdominal Pain, No Nausea, No Vomiting, No Diarrhea Genitourinary Symptoms: No Dysuria Musculoskeletal: No Back Pain, No Neck Pain Skin: No Rash Neurological: No Dizziness, No Focal Weakness, No Sensory Changes Psychological: No Symptoms Endocrine: No Symptoms Hematologic/Lymphatic: No Symptoms Immunological/Allergic: No Symptoms Objective Exam General Appearance: no apparent distress, alert Neurologic Exam: alert, oriented x 3, cooperative, normal mood/affect, sensation nml, No motor deficits Skin Exam: normal color, warm, dry Eye Exam: PERRL, EOMI, eyes nml inspection Ears, Nose, Throat Exam: normal ENT inspection, pharynx normal, moist mucous membranes Neck Exam: normal inspection, non-tender, supple, full range of motion Respiratory Exam: normal breath sounds, lungs clear, No respiratory distress Cardiovascular Exam: regular rate/rhythm, normal heart sounds Gastrointestinal/Abdomen Exam: soft, No tenderness, No mass Extremity Exam: normal inspection, normal range of motion Back Exam: normal inspection, normal range of motion, No CVA tenderness, No vertebral tenderness Pelvic Exam: deferred Rectal Exam: deferred OBJECTIVE DATA Vital Signs: Vital Signs - 24 hr Temp Pulse Resp BP Pulse Ox 10/13/22 11:54 97.7 F 61 18 129/60 98 10/13/22 11:46 70 22 98 10/13/22 07:19 98.7 F 86 17 135/67 97 10/13/22 04:00 98.4 F 83 18 144/68 97 10/13/22 00:00 99.4 F 80 17 139/84 98 10/12/22 20:20 76 20 100 10/12/22 20:00 100.6 F 73 20 157/74 100 10/12/22 17:58 98.7 F 70 20 134/60 99 10/12/22 17:39 98 10/12/22 17:23 98.7 F 69 16 134/60 100 10/12/22 17:00 86 18 97 10/12/22 16:00 70 18 153/67 100 10/12/22 15:08 67 18 148/71 100 10/12/22 14:15 65 18 130/62 100 Pain Assessment - Last Documented Pain Intensity 3 Intake and Output: Intake & Output 10/11/22 10/12/22 10/13/22 10/14/22 11:59 11:59 11:59 11:59 Intake Total 240 Output Total 300 Balance -60 Weight 65.771 kg 63.7 kg Lab Results: Lab Results-Last 24 Hours 10/12/22 10/12/22 10/12/22 Range/Units 12:15 12:15 12:15 WBC 13.8 H (4.0-10.5) x10^3/uL RBC 4.13 (4.1-5.4) x10^6/uL Hgb 11.8 L (12.0-16.0) g/dL Hct 36.5 (35-47) % MCV 88.4 (78-100) fL MCH 28.6 (26-32) pg MCHC 32.3 (32-36) g/dL RDW 14.2 H (11.5-14.0) % Plt Count 257 (150-450) x10^3/uL MPV 10.5 (7.5-11.0) fL Gran % 82.9 H (36.0-66.0) % Immature Gran % (Auto) 0.7 H (0.00-0.4) % Nucleat RBC Rel Count 0.0 (0.00-0.1) % Eos # (Auto) 0.02 (0-0.5) x10^3/uL Immature Gran # (Auto) 0.09 H (0.00-0.03) x10^3u/L Absolute Lymphs (auto) 0.89 L (1.0-4.6) x10^3/uL Absolute Monos (auto) 1.29 (0.0-1.3) x10^3/uL Absolute Nucleated RBC 0.00 (0.00-0.01) x10^3u/L Lymphocytes % 6.5 L (24.0-44.0) % Monocytes % 9.4 (0.0-12.0) % Eosinophils % 0.1 (0.00-5.0) % Basophils % 0.4 (0.0-0.4) % Absolute Granulocytes 11.41 H (1.4-6.9) x10^3/uL Basophils # 0.05 (0-0.4) x10^3/uL PT 11.1 (9.4-12.5) SECONDS INR 1.02 (0.8-3.0) Sodium 139 (137-145) mmol/L Potassium 3.3 L (3.5-5.1) mmol/L Chloride 97 L (98-107) mmol/L Carbon Dioxide 36 H (22-30) mmol/L Anion Gap 9.5 (5-15) MEQ/L BUN 17 (7-17) mg/dL Creatinine 0.59 (0.52-1.04) mg/dL Estimated GFR > 60.0 ML/MIN Glucose 145 H (74-106) mg/dL POC Glucometer (74 to 106) mg/dL Hemoglobin A1c (4.5-6.0) % Calcium 9.0 (8.4-10.2) mg/dL Total Bilirubin 1.40 H (0.2-1.3) mg/dL AST 24 (14-36) U/L ALT 14 (0-35) U/L Alkaline Phosphatase 97 (38-126) U/L Troponin I (0.000-0.034) ng/mL Serum Total Protein 6.4 (6.3-8.2) g/dL Albumin 3.3 L (3.5-5.0) g/dL Urine Color (Yellow) Urine Appearance (Clear) Urine pH (4.6-8.0) Ur Specific [place] (1.005-1.030) Urine Protein (Negative) Urine Glucose (UA) (Negative) mg/dL Urine Ketones (Negative) Urine Blood (Negative) Urine Nitrite (Negative) Urine Bilirubin (Negative) Urine Urobilinogen (0.2) mg/dL Ur Leukocyte Esterase (Negative) U Hyaline Cast (Auto) (0-2) /LPF Urine Microscopic RBC (0-5) /HPF Urine Microscopic WBC (0-5) /HPF Ur Epithelial Cells (None Seen) /HPF Urine Bacteria (None Seen) /HPF Urine Culture Reflexed (NO) Influenza Type A Ag (NEGATIVE) Influenza Type B Ag (NEGATIVE) RSV (PCR) (Negative) SARS-CoV-2 (PCR) (NEGATIVE) Slides for Path Review 10/12/22 10/12/22 10/12/22 Range/Units 12:15 12:16 12:40 WBC (4.0-10.5) x10^3/uL RBC (4.1-5.4) x10^6/uL Hgb (12.0-16.0) g/dL Hct (35-47) % MCV (78-100) fL MCH (26-32) pg MCHC (32-36) g/dL RDW (11.5-14.0) % Plt Count (150-450) x10^3/uL MPV (7.5-11.0) fL Gran % (36.0-66.0) % Immature Gran % (Auto) (0.00-0.4) % Nucleat RBC Rel Count (0.00-0.1) % Eos # (Auto) (0-0.5) x10^3/uL Immature Gran # (Auto) (0.00-0.03) x10^3u/L Absolute Lymphs (auto) (1.0-4.6) x10^3/uL Absolute Monos (auto) (0.0-1.3) x10^3/uL Absolute Nucleated RBC (0.00-0.01) x10^3u/L Lymphocytes % (24.0-44.0) % Monocytes % (0.0-12.0) % Eosinophils % (0.00-5.0) % Basophils % (0.0-0.4) % Absolute Granulocytes (1.4-6.9) x10^3/uL Basophils # (0-0.4) x10^3/uL PT (9.4-12.5) SECONDS INR (0.8-3.0) Sodium (137-145) mmol/L Potassium (3.5-5.1) mmol/L Chloride (98-107) mmol/L Carbon Dioxide (22-30) mmol/L Anion Gap (5-15) MEQ/L BUN (7-17) mg/dL Creatinine (0.52-1.04) mg/dL Estimated GFR ML/MIN Glucose (74-106) mg/dL POC Glucometer (74 to 106) mg/dL Hemoglobin A1c (4.5-6.0) % Calcium (8.4-10.2) mg/dL Total Bilirubin (0.2-1.3) mg/dL AST (14-36) U/L ALT (0-35) U/L Alkaline Phosphatase (38-126) U/L Troponin I < 0.012 (0.000-0.034) ng/mL Serum Total Protein (6.3-8.2) g/dL Albumin (3.5-5.0) g/dL Urine Color Dark Yellow A (Yellow) Urine Appearance Turbid A (Clear) Urine pH 5.5 (4.6-8.0) Ur Specific [place] 1.015 (1.005-1.030) Urine Protein 30 (Negative) Urine Glucose (UA) Negative (Negative) mg/dL Urine Ketones 40 A (Negative) Urine Blood Large A (Negative) Urine Nitrite Negative (Negative) Urine Bilirubin Negative (Negative) Urine Urobilinogen 2.0 A (0.2) mg/dL Ur Leukocyte Esterase Moderate A (Negative) U Hyaline Cast (Auto) 3-5 A (0-2) /LPF Urine Microscopic RBC >100 A (0-5) /HPF Urine Microscopic WBC 51-100 A (0-5) /HPF Ur Epithelial Cells None Seen (None Seen) /HPF Urine Bacteria Many A (None Seen) /HPF Urine Culture Reflexed YES (NO) Influenza Type A Ag NEGATIVE (NEGATIVE) Influenza Type B Ag NEGATIVE (NEGATIVE) RSV (PCR) NEGATIVE (Negative) SARS-CoV-2 (PCR) NEGATIVE (NEGATIVE) Slides for Path Review 10/12/22 10/12/22 10/12/22 Range/Units 16:27 20:20 21:20 WBC (4.0-10.5) x10^3/uL RBC (4.1-5.4) x10^6/uL Hgb (12.0-16.0) g/dL Hct (35-47) % MCV (78-100) fL MCH (26-32) pg MCHC (32-36) g/dL RDW (11.5-14.0) % Plt Count (150-450) x10^3/uL MPV (7.5-11.0) fL Gran % (36.0-66.0) % Immature Gran % (Auto) (0.00-0.4) % Nucleat RBC Rel Count (0.00-0.1) % Eos # (Auto) (0-0.5) x10^3/uL Immature Gran # (Auto) (0.00-0.03) x10^3u/L Absolute Lymphs (auto) (1.0-4.6) x10^3/uL Absolute Monos (auto) (0.0-1.3) x10^3/uL Absolute Nucleated RBC (0.00-0.01) x10^3u/L Lymphocytes % (24.0-44.0) % Monocytes % (0.0-12.0) % Eosinophils % (0.00-5.0) % Basophils % (0.0-0.4) % Absolute Granulocytes (1.4-6.9) x10^3/uL Basophils # (0-0.4) x10^3/uL PT (9.4-12.5) SECONDS INR (0.8-3.0) Sodium (137-145) mmol/L Potassium (3.5-5.1) mmol/L Chloride (98-107) mmol/L Carbon Dioxide (22-30) mmol/L Anion Gap (5-15) MEQ/L BUN (7-17) mg/dL Creatinine (0.52-1.04) mg/dL Estimated GFR ML/MIN Glucose (74-106) mg/dL POC Glucometer 114 H (74 to 106) mg/dL Hemoglobin A1c (4.5-6.0) % Calcium (8.4-10.2) mg/dL Total Bilirubin (0.2-1.3) mg/dL AST (14-36) U/L ALT (0-35) U/L Alkaline Phosphatase (38-126) U/L Troponin I < 0.012 < 0.012 (0.000-0.034) ng/mL Serum Total Protein (6.3-8.2) g/dL Albumin (3.5-5.0) g/dL Urine Color (Yellow) Urine Appearance (Clear) Urine pH (4.6-8.0) Ur Specific [place] (1.005-1.030) Urine Protein (Negative) Urine Glucose (UA) (Negative) mg/dL Urine Ketones (Negative) Urine Blood (Negative) Urine Nitrite (Negative) Urine Bilirubin (Negative) Urine Urobilinogen (0.2) mg/dL Ur Leukocyte Esterase (Negative) U Hyaline Cast (Auto) (0-2) /LPF Urine Microscopic RBC (0-5) /HPF Urine Microscopic WBC (0-5) /HPF Ur Epithelial Cells (None Seen) /HPF Urine Bacteria (None Seen) /HPF Urine Culture Reflexed (NO) Influenza Type A Ag (NEGATIVE) Influenza Type B Ag (NEGATIVE) RSV (PCR) (Negative) SARS-CoV-2 (PCR) (NEGATIVE) Slides for Path Review 10/12/22 10/13/22 10/13/22 Range/Units Unknown 04:30 04:30 WBC 14.1 H (4.0-10.5) x10^3/uL RBC 3.88 L (4.1-5.4) x10^6/uL Hgb 11.1 L (12.0-16.0) g/dL Hct 34.1 L (35-47) % MCV 87.9 (78-100) fL MCH 28.6 (26-32) pg MCHC 32.6 (32-36) g/dL RDW 14.2 H (11.5-14.0) % Plt Count 256 (150-450) x10^3/uL MPV 9.8 (7.5-11.0) fL Gran % 75.1 H (36.0-66.0) % Immature Gran % (Auto) 0.6 H (0.00-0.4) % Nucleat RBC Rel Count 0.0 (0.00-0.1) % Eos # (Auto) 0.09 (0-0.5) x10^3/uL Immature Gran # (Auto) 0.08 H (0.00-0.03) x10^3u/L Absolute Lymphs (auto) 1.27 (1.0-4.6) x10^3/uL Absolute Monos (auto) 1.99 H (0.0-1.3) x10^3/uL Absolute Nucleated RBC 0.00 (0.00-0.01) x10^3u/L Lymphocytes % 9.0 L (24.0-44.0) % Monocytes % 14.2 H (0.0-12.0) % Eosinophils % 0.6 (0.00-5.0) % Basophils % 0.5 (0.0-0.4) % Absolute Granulocytes 10.55 H (1.4-6.9) x10^3/uL Basophils # 0.07 (0-0.4) x10^3/uL PT (9.4-12.5) SECONDS INR (0.8-3.0) Sodium 137 (137-145) mmol/L Potassium 3.1 L (3.5-5.1) mmol/L Chloride 99 (98-107) mmol/L Carbon Dioxide 33 H (22-30) mmol/L Anion Gap 8.7 (5-15) MEQ/L BUN 15 (7-17) mg/dL Creatinine 0.55 (0.52-1.04) mg/dL Estimated GFR > 60.0 ML/MIN Glucose 101 (74-106) mg/dL POC Glucometer (74 to 106) mg/dL Hemoglobin A1c 5.06 (4.5-6.0) % Calcium 8.6 (8.4-10.2) mg/dL Total Bilirubin 1.10 (0.2-1.3) mg/dL AST 23 (14-36) U/L ALT 13 (0-35) U/L Alkaline Phosphatase 88 (38-126) U/L Troponin I (0.000-0.034) ng/mL Serum Total Protein 6.0 L (6.3-8.2) g/dL Albumin 3.1 L (3.5-5.0) g/dL Urine Color (Yellow) Urine Appearance (Clear) Urine pH (4.6-8.0) Ur Specific [place] (1.005-1.030) Urine Protein (Negative) Urine Glucose (UA) (Negative) mg/dL Urine Ketones (Negative) Urine Blood (Negative) Urine Nitrite (Negative) Urine Bilirubin (Negative) Urine Urobilinogen (0.2) mg/dL Ur Leukocyte Esterase (Negative) U Hyaline Cast (Auto) (0-2) /LPF Urine Microscopic RBC (0-5) /HPF Urine Microscopic WBC (0-5) /HPF Ur Epithelial Cells (None Seen) /HPF Urine Bacteria (None Seen) /HPF Urine Culture Reflexed (NO) Influenza Type A Ag (NEGATIVE) Influenza Type B Ag (NEGATIVE) RSV (PCR) (Negative) SARS-CoV-2 (PCR) (NEGATIVE) Slides for Path Review YES 10/13/22 10/13/22 Range/Units 06:45 11:47 WBC (4.0-10.5) x10^3/uL RBC (4.1-5.4) x10^6/uL Hgb (12.0-16.0) g/dL Hct (35-47) % MCV (78-100) fL MCH (26-32) pg MCHC (32-36) g/dL RDW (11.5-14.0) % Plt Count (150-450) x10^3/uL MPV (7.5-11.0) fL Gran % (36.0-66.0) % Immature Gran % (Auto) (0.00-0.4) % Nucleat RBC Rel Count (0.00-0.1) % Eos # (Auto) (0-0.5) x10^3/uL Immature Gran # (Auto) (0.00-0.03) x10^3u/L Absolute Lymphs (auto) (1.0-4.6) x10^3/uL Absolute Monos (auto) (0.0-1.3) x10^3/uL Absolute Nucleated RBC (0.00-0.01) x10^3u/L Lymphocytes % (24.0-44.0) % Monocytes % (0.0-12.0) % Eosinophils % (0.00-5.0) % Basophils % (0.0-0.4) % Absolute Granulocytes (1.4-6.9) x10^3/uL Basophils # (0-0.4) x10^3/uL PT (9.4-12.5) SECONDS INR (0.8-3.0) Sodium (137-145) mmol/L Potassium (3.5-5.1) mmol/L Chloride (98-107) mmol/L Carbon Dioxide (22-30) mmol/L Anion Gap (5-15) MEQ/L BUN (7-17) mg/dL Creatinine (0.52-1.04) mg/dL Estimated GFR ML/MIN Glucose (74-106) mg/dL POC Glucometer 98 160 H (74 to 106) mg/dL Hemoglobin A1c (4.5-6.0) % Calcium (8.4-10.2) mg/dL Total Bilirubin (0.2-1.3) mg/dL AST (14-36) U/L ALT (0-35) U/L Alkaline Phosphatase (38-126) U/L Troponin I (0.000-0.034) ng/mL Serum Total Protein (6.3-8.2) g/dL Albumin (3.5-5.0) g/dL Urine Color (Yellow) Urine Appearance (Clear) Urine pH (4.6-8.0) Ur Specific [place] (1.005-1.030) Urine Protein (Negative) Urine Glucose (UA) (Negative) mg/dL Urine Ketones (Negative) Urine Blood (Negative) Urine Nitrite (Negative) Urine Bilirubin (Negative) Urine Urobilinogen (0.2) mg/dL Ur Leukocyte Esterase (Negative) U Hyaline Cast (Auto) (0-2) /LPF Urine Microscopic RBC (0-5) /HPF Urine Microscopic WBC (0-5) /HPF Ur Epithelial Cells (None Seen) /HPF Urine Bacteria (None Seen) /HPF Urine Culture Reflexed (NO) Influenza Type A Ag (NEGATIVE) Influenza Type B Ag (NEGATIVE) RSV (PCR) (Negative) SARS-CoV-2 (PCR) (NEGATIVE) Slides for Path Review Radiology Exams: Radiology Procedures Category Date Time Status CAROTID BILATERAL [US] Routine Exams 10/12/22 12:36 Completed CERVICAL SPINE WO CONTRAST [CT] Routine Exams 10/12/22 12:41 Completed CHEST 1 VIEW (PORTABLE) Routine Exams 10/12/22 12:43 Completed HEAD WITHOUT CONTRAST [CT] Routine Exams 10/12/22 12:41 Completed Multi-Disciplinary Progress Notes: Multi-Disciplinary Progress Notes 10/13/22 10:25 Case Management Note by Yasemin Jane PATIENT REPORTS THEY HAD BEDBUGS AT ONE POINT IN TIME. SHE REPORTS HER CHILDREN TREATED HER HOME THOROUGHLY. SHE EVEN STAYED IN A HOTEL WHILE THEY DID THIS. SHE REPORTS SHE WAS UNAWARE THERE WERE ANY CURRENT ISSUES UNTIL ONE WAS NOTED ON ADMISSION. SHE REPORTS HER CHILDREN ARE GOING TO LOOK AT HER HOME AND WILL TREAT IT AGAIN IF NECESSARY. PATIENT GIVEN [employer] HANDOUT FOR EDUCATION Initialized on 10/13/22 10:25 - END OF NOTE Assessment/Plan (1) UTI (urinary tract infection) Current Visit: Yes Status: Acute Qualifiers: Urinary tract infection type: acute pyelonephritis Qualified Code(s): N10 - Acute pyelonephritis Assessment & Plan: Chief Complaint Diagnosis c/o weakness and dizziness for 2-3 days Allergies Allergy/AdvReac Type Severity Reaction Status Date / Time Sulfa (Sulfonamide Allergy Severe Tightness Verified 10/12/22 12:35 Antibiotics) of Throat [Sulfa(Sulfonamide Antibiotics)] Iodinated Contrast Media Allergy Intermediate Rash Verified 10/12/22 12:35 [IV Dye, Iodine Containing Contrast ] iodine Allergy Intermediate Rash Verified 10/12/22 12:35 levofloxacin [From Levaquin] Allergy Intermediate Rash Verified 10/12/22 12:35 Penicillins Allergy Intermediate Swelling Verified 10/12/22 12:35 codeine [Codeine] Allergy Unknown Verified 10/12/22 12:35 oxytetracycline Allergy Unknown Verified 10/12/22 12:35 [From Terramycin] oxytetracycline HCl Allergy Unknown Verified 10/12/22 12:35 [From Terramycin] Vital Signs (Last 24 hours) Temp Pulse Resp BP Pulse Ox 10/13/22 11:54 97.7 F 61 18 129/60 98 10/13/22 11:46 70 22 98 10/13/22 07:19 98.7 F 86 17 135/67 97 10/13/22 04:00 98.4 F 83 18 144/68 97 10/13/22 00:00 99.4 F 80 17 139/84 98 10/12/22 20:20 76 20 100 10/12/22 20:00 100.6 F 73 20 157/74 100 10/12/22 17:58 98.7 F 70 20 134/60 99 10/12/22 17:39 98 10/12/22 17:23 98.7 F 69 16 134/60 100 10/12/22 17:00 86 18 97 10/12/22 16:00 70 18 153/67 100 10/12/22 15:08 67 18 148/71 100 10/12/22 14:15 65 18 130/62 100 Home Medications Medication Instructions Recorded Confirmed Last Taken Type Acetaminophen 325 mg [Tylenol 650 mg PO Q4H PRN PRN 10/12/22 10/12/22 Unknown History 325 mg] Citalopram Hydrobromide 20 mg* 20 mg PO DAILY 10/12/22 10/12/22 Unknown History [ceLEXa 20 MG] Insulin Glargine [Lantus 20 units SQ QHS 10/12/22 10/12/22 Unknown History Insulin] Magnesium Hydroxide 30 ml [Milk 30 ml PO DAILY PRN PRN 10/12/22 10/12/22 Unknown History of Magnesia 30 ml] Rosuvastatin Calcium 20 mg PO QHS 10/12/22 10/12/22 Unknown History Theophylline Anhydrous 300 mg PO BID 10/12/22 10/12/22 Unknown History [Theophylline ER] Tramadol HCl 50 mg [Ultram 50 50 mg PO Q6H PRN PRN 10/12/22 10/12/22 Unknown History mg] Current Medications Generic Name Dose Route Start Last Admin Trade Name Freq PRN Reason Stop Dose Admin Acetaminophen 650 mg 10/12/22 17:39 Acetaminophen 325 Mg Tablet PO 11/11/22 17:38 Q4H PRN PRN PAIN, FEVER, HEADACHE Albuterol Sulfate 2.5 mg 10/12/22 22:44 Albuterol Sulfate 2.5 Mg/3 Ml Neb 11/11/22 22:43 Q4H PRN PRN SHORTNESS OF BREATH/WHEEZING Albuterol Sulfate 4 puff 10/13/22 11:44 10/13/22 10:45 Albuterol Common Canister Inhaler 11/12/22 11:43 4 puff Q4H PRN PRN Administration SHORTNESS OF BREATH/WHEEZING Carvedilol 6.25 mg 10/13/22 10:00 10/13/22 09:58 Carvedilol 6.25 Mg Tablet PO 11/12/22 09:59 6.25 mg DAILY SONAL Administration Citalopram Hydrobromide 20 mg 10/13/22 10:00 10/13/22 09:59 Citalopram Hydrobromide 20 Mg Tablet PO 11/12/22 09:59 20 mg DAILY SONAL Administration Cyanocobalamin 500 mcg 10/13/22 10:00 10/13/22 09:59 Cyanocobalamin 500 Mcg Tablet PO 11/12/22 09:59 500 mcg DAILY SONAL Administration Gabapentin 300 mg 10/12/22 22:00 10/13/22 09:58 Gabapentin 300 Mg Capsule PO 11/11/22 21:59 300 mg TID SONAL Administration Ceftriaxone Sodium/Dextrose 1 g in 50 mls @ 100 mls/hr 10/13/22 10:00 10/13/22 09:59 Rocephin 1 Gm-D5w 50 Ml Bag IV 10/16/22 09:59 100 mls/hr Q24H10 SONAL Administration Sodium Chloride 1,000 mls @ 50 mls/hr 10/12/22 17:39 10/13/22 04:01 Sodium Chloride 0.9% 1000 Ml IV 11/11/22 17:38 50 mls/hr .Q20H SONAL Administration Insulin Glargine 20 unit 10/12/22 22:00 10/12/22 21:22 Insulin Glargine 1 Unit SQ 11/11/22 21:59 20 unit HS SONAL Administration Insulin Human Regular 0 unit 10/13/22 11:52 Insulin Regular, Human 1 Unit SQ 11/12/22 11:51 UD PRN high glucose Magnesium Hydroxide 30 ml 10/13/22 07:09 Magnesium Hydroxide 30 Ml Udcup PO 11/12/22 07:08 DAILY PRN PRN CONSTIPATION Ondansetron HCl 4 mg 10/12/22 17:39 Ondansetron Hcl 4 Mg/2 Ml Vial IV 11/11/22 17:38 Q6H PRN PRN NAUSEA/VOMITING Pantoprazole Sodium 40 mg 10/13/22 10:00 10/13/22 09:58 Protonix (Pantoprazole) 40 Mg Tablet PO 11/12/22 09:59 40 mg DAILY SONAL Administration Theophylline Er 1 each 10/13/22 10:00 10/13/22 10:12 300mg Tablet PO 11/12/22 09:59 1 each BID SONAL Administration Quinapril HCl 10 mg 10/13/22 10:00 10/13/22 09:58 Quinapril 10mg Tab PO 11/12/22 09:59 10 mg DAILY SONAL Administration Fluticasone/Salmeterol 2 puff 10/13/22 07:00 10/13/22 10:50 Fluticasone/Salmeterol 230/21 Common Canister IH 11/12/22 06:59 Not Given BIDRT SONAL Simvastatin 40 mg 10/13/22 22:00 Simvastatin 20 Mg Tablet PO 11/12/22 21:59 HS SONAL Tramadol HCl 50 mg 10/12/22 20:09 10/12/22 21:21 Tramadol Hcl 50 Mg Tablet PO 11/11/22 20:08 50 mg Q6H PRN PRN Administration PAIN Vitamin E 400 units 10/13/22 10:00 10/13/22 09:57 Vitamin E 400 Units 400 Units Capsule PO 11/12/22 09:59 400 units DAILY SONAL Administration Discontinued Medications Generic Name Dose Route Start Last Admin Trade Name Isatu PRN Reason Stop Dose Admin Sodium Chloride 1,000 mls @ 100 mls/hr 10/12/22 12:15 10/12/22 12:42 Sodium Chloride 0.9% 1000 Ml IV 11/11/22 12:14 100 mls/hr .Q10H SONAL Administration Ceftriaxone Sodium/Dextrose 1 g in 50 mls @ 100 mls/hr 10/12/22 15:14 10/12/22 15:54 Rocephin 1 Gm-D5w 50 Ml Bag IV 10/12/22 15:43 Infused STAT STA Infusion Ceftriaxone Sodium/Dextrose Confirm 10/12/22 15:19 Rocephin 1 Gm-D5w 50 Ml Bag Administered 10/12/22 15:20 Dose 1 g in 50 mls @ ud IV .STK-MED ONE Sodium Chloride Confirm 10/12/22 12:40 Sodium Chloride 0.9% 1000 Ml Administered 10/12/22 12:41 Dose 1,000 mls @ ud .ROUTE .STK-MED ONE Miscellaneous Information 1 each 10/13/22 10:00 Medication Intervention 1 Each Each 11/12/22 09:59 DAILY SONAL Theophylline 300 mg 10/12/22 22:00 10/12/22 21:24 Theophylline Anhydrous 400 Mg Tab.Er.24hr Tablet PO 11/11/22 21:59 300 mg BID SONAL Administration Intake & Output (Last 24 hours) 10/11/22 10/12/22 10/13/22 10/14/22 11:59 11:59 11:59 11:59 Intake Total 240 Output Total 300 Balance -60 Weight 65.771 kg 63.7 kg Microbiology Results (Last 24 hours) 10/12/22 12:16 Urine, Catheterized Urine Culture - Preliminary GRAM NEGATIVE ID AND SENSITIVITY PENDING Laboratory Results (Last 24 hours) 10/13/22 10/13/22 10/13/22 11:47 06:45 04:30 WBC RBC Hgb Hct MCV MCH MCHC RDW Plt Count MPV Gran % Immature Gran % (Auto) Nucleat RBC Rel Count Eos # (Auto) Immature Gran # (Auto) Absolute Lymphs (auto) Absolute Monos (auto) Absolute Nucleated RBC Lymphocytes % Monocytes % Eosinophils % Basophils % Absolute Granulocytes Basophils # PT INR Sodium 137 Potassium 3.1 L Chloride 99 Carbon Dioxide 33 H Anion Gap 8.7 BUN 15 Creatinine 0.55 Estimated GFR > 60.0 Glucose 101 POC Glucometer 160 H 98 Hemoglobin A1c Calcium 8.6 Total Bilirubin 1.10 AST 23 ALT 13 Alkaline Phosphatase 88 Troponin I Serum Total Protein 6.0 L Albumin 3.1 L Urine Color Urine Appearance Urine pH Ur Specific [place] Urine Protein Urine Glucose (UA) Urine Ketones Urine Blood Urine Nitrite Urine Bilirubin Urine Urobilinogen Ur Leukocyte Esterase U Hyaline Cast (Auto) Urine Microscopic RBC Urine Microscopic WBC Ur Epithelial Cells Urine Bacteria Urine Culture Reflexed Influenza Type A Ag Influenza Type B Ag RSV (PCR) SARS-CoV-2 (PCR) Slides for Path Review 10/13/22 10/12/22 10/12/22 04:30 Unknown 21:20 WBC 14.1 H RBC 3.88 L Hgb 11.1 L Hct 34.1 L MCV 87.9 MCH 28.6 MCHC 32.6 RDW 14.2 H Plt Count 256 MPV 9.8 Gran % 75.1 H Immature Gran % (Auto) 0.6 H Nucleat RBC Rel Count 0.0 Eos # (Auto) 0.09 Immature Gran # (Auto) 0.08 H Absolute Lymphs (auto) 1.27 Absolute Monos (auto) 1.99 H Absolute Nucleated RBC 0.00 Lymphocytes % 9.0 L Monocytes % 14.2 H Eosinophils % 0.6 Basophils % 0.5 Absolute Granulocytes 10.55 H Basophils # 0.07 PT INR Sodium Potassium Chloride Carbon Dioxide Anion Gap BUN Creatinine Estimated GFR Glucose POC Glucometer 114 H Hemoglobin A1c 5.06 Calcium Total Bilirubin AST ALT Alkaline Phosphatase Troponin I Serum Total Protein Albumin Urine Color Urine Appearance Urine pH Ur Specific [place] Urine Protein Urine Glucose (UA) Urine Ketones Urine Blood Urine Nitrite Urine Bilirubin Urine Urobilinogen Ur Leukocyte Esterase U Hyaline Cast (Auto) Urine Microscopic RBC Urine Microscopic WBC Ur Epithelial Cells Urine Bacteria Urine Culture Reflexed Influenza Type A Ag Influenza Type B Ag RSV (PCR) SARS-CoV-2 (PCR) Slides for Path Review YES 10/12/22 10/12/22 10/12/22 20:20 16:27 12:40 WBC RBC Hgb Hct MCV MCH MCHC RDW Plt Count MPV Gran % Immature Gran % (Auto) Nucleat RBC Rel Count Eos # (Auto) Immature Gran # (Auto) Absolute Lymphs (auto) Absolute Monos (auto) Absolute Nucleated RBC Lymphocytes % Monocytes % Eosinophils % Basophils % Absolute Granulocytes Basophils # PT INR Sodium Potassium Chloride Carbon Dioxide Anion Gap BUN Creatinine Estimated GFR Glucose POC Glucometer Hemoglobin A1c Calcium Total Bilirubin AST ALT Alkaline Phosphatase Troponin I < 0.012 < 0.012 Serum Total Protein Albumin Urine Color Urine Appearance Urine pH Ur Specific [place] Urine Protein Urine Glucose (UA) Urine Ketones Urine Blood Urine Nitrite Urine Bilirubin Urine Urobilinogen Ur Leukocyte Esterase U Hyaline Cast (Auto) Urine Microscopic RBC Urine Microscopic WBC Ur Epithelial Cells Urine Bacteria Urine Culture Reflexed Influenza Type A Ag NEGATIVE Influenza Type B Ag NEGATIVE RSV (PCR) NEGATIVE SARS-CoV-2 (PCR) NEGATIVE Slides for Path Review 10/12/22 10/12/22 10/12/22 12:16 12:15 12:15 WBC RBC Hgb Hct MCV MCH MCHC RDW Plt Count MPV Gran % Immature Gran % (Auto) Nucleat RBC Rel Count Eos # (Auto) Immature Gran # (Auto) Absolute Lymphs (auto) Absolute Monos (auto) Absolute Nucleated RBC Lymphocytes % Monocytes % Eosinophils % Basophils % Absolute Granulocytes Basophils # PT 11.1 INR 1.02 Sodium Potassium Chloride Carbon Dioxide Anion Gap BUN Creatinine Estimated GFR Glucose POC Glucometer Hemoglobin A1c Calcium Total Bilirubin AST ALT Alkaline Phosphatase Troponin I < 0.012 Serum Total Protein Albumin Urine Color Dark Yellow A Urine Appearance Turbid A Urine pH 5.5 Ur Specific [place] 1.015 Urine Protein 30 Urine Glucose (UA) Negative Urine Ketones 40 A Urine Blood Large A Urine Nitrite Negative Urine Bilirubin Negative Urine Urobilinogen 2.0 A Ur Leukocyte Esterase Moderate A U Hyaline Cast (Auto) 3-5 A Urine Microscopic RBC >100 A Urine Microscopic WBC 51-100 A Ur Epithelial Cells None Seen Urine Bacteria Many A Urine Culture Reflexed YES Influenza Type A Ag Influenza Type B Ag RSV (PCR) SARS-CoV-2 (PCR) Slides for Path Review 10/12/22 10/12/22 12:15 12:15 WBC 13.8 H RBC 4.13 Hgb 11.8 L Hct 36.5 MCV 88.4 MCH 28.6 MCHC 32.3 RDW 14.2 H Plt Count 257 MPV 10.5 Gran % 82.9 H Immature Gran % (Auto) 0.7 H Nucleat RBC Rel Count 0.0 Eos # (Auto) 0.02 Immature Gran # (Auto) 0.09 H Absolute Lymphs (auto) 0.89 L Absolute Monos (auto) 1.29 Absolute Nucleated RBC 0.00 Lymphocytes % 6.5 L Monocytes % 9.4 Eosinophils % 0.1 Basophils % 0.4 Absolute Granulocytes 11.41 H Basophils # 0.05 PT INR Sodium 139 Potassium 3.3 L Chloride 97 L Carbon Dioxide 36 H Anion Gap 9.5 BUN 17 Creatinine 0.59 Estimated GFR > 60.0 Glucose 145 H POC Glucometer Hemoglobin A1c Calcium 9.0 Total Bilirubin 1.40 H AST 24 ALT 14 Alkaline Phosphatase 97 Troponin I Serum Total Protein 6.4 Albumin 3.3 L Urine Color Urine Appearance Urine pH Ur Specific [place] Urine Protein Urine Glucose (UA) Urine Ketones Urine Blood Urine Nitrite Urine Bilirubin Urine Urobilinogen Ur Leukocyte Esterase U Hyaline Cast (Auto) Urine Microscopic RBC Urine Microscopic WBC Ur Epithelial Cells Urine Bacteria Urine Culture Reflexed Influenza Type A Ag Influenza Type B Ag RSV (PCR) SARS-CoV-2 (PCR) Slides for Path Review Orders (Last 24 hours) Category Date Time Status Bedrest TOLERATED Activity 10/12/22 17:39 Active Admit as Inpatient ROUTINE Care 10/12/22 17:39 Active Supervisor Telephone Clerks STAT Care 10/12/22 12:13 Completed EKG-ER Only STAT Care 10/12/22 12:12 Completed Elevate HOB TOLERATED Care 10/12/22 17:39 Active IV Insertion STAT Care 10/12/22 12:12 Completed Isolation, Initiate & Maintain Q12H Care 10/12/22 17:05 Active POCT Glucose Check ACHS Care 10/12/22 17:05 Active Pulse Oximetry (ED) STAT Care 10/12/22 12:12 Completed Weight,Daily 0600 Care 10/12/22 17:39 Active Telegraph Repeater Installer/Discharge Plan ROUTINE Cons 10/12/22 18:15 Active Heart-Healthy Diet Diet 10/12/22 Dinner Completed House Regular Diet Diet 10/13/22 Lunch Active Discharge Planning,Consult Routine Discharge 10/12/22 17:39 Active CAROTID BILATERAL [US] Routine Exams 10/12/22 12:36 Completed CERVICAL SPINE WO CONTRAST [CT] Routine Exams 10/12/22 12:41 Completed CHEST 1 VIEW (PORTABLE) Routine Exams 10/12/22 12:43 Completed HEAD WITHOUT CONTRAST [CT] Routine Exams 10/12/22 12:41 Completed CBC W DIFF AM.LAB Lab 10/13/22 04:30 Completed CBC W DIFF Stat Lab 10/12/22 12:15 Completed CMP AM.LAB Lab 10/13/22 04:30 Completed CMP Stat Lab 10/12/22 12:15 Completed COVID/FLU/RSV Panel Stat Lab 10/12/22 12:40 Completed CULTURE,URINE Stat Lab 10/12/22 12:16 Results Manual Differential NC Routine Lab 10/13/22 04:30 Completed POCT GLUCOSE Stat Lab 10/12/22 21:20 Completed POCT GLUCOSE Stat Lab 10/13/22 06:45 Completed POCT GLUCOSE Stat Lab 10/13/22 11:47 Completed PROTIME WITH INR Stat Lab 10/12/22 12:15 Completed TROPONIN Q4H Lab 10/12/22 12:15 Completed TROPONIN Q4H Lab 10/12/22 16:27 Completed TROPONIN Q4H Lab 10/12/22 20:20 Completed UA W/RFX UR CULTURE Stat Lab 10/12/22 12:16 Completed Acetaminophen 325 mg [Tylenol 325 mg] Med 10/12/22 17:39 Active 650 mg PO Q4H PRN PRN Albuterol 2.5 mg/3 ml Neb [Proventil 2.5 mg/3 ml Neb Med 10/12/22 22:44 Active ] 2.5 mg IH Q4H PRN PRN Albuterol Common Canister [Ventolin Common Canister* Med 10/13/22 11:44 Active ] 4 puff IH Q4H PRN PRN Carvedilol [Coreg ] Med 10/13/22 10:00 Active 6.25 mg PO DAILY Ceftriaxone 1 GM/50 ML PREMIX* [ROCEPHIN 1 Gm-D5w 50 ml Med 10/13/22 10:00 Active Bag] 1 g in 50 ml IV Q24H10 Ceftriaxone 1 GM/50 ML PREMIX* [ROCEPHIN 1 Gm-D5w 50 ml Med 10/12/22 15:14 Discontinued Bag] 1 g in 50 ml IV STAT Ceftriaxone 1 GM/50 ML PREMIX* [ROCEPHIN 1 Gm-D5w 50 ml Med 10/12/22 15:19 Discontinued Bag] 1 g in 50 ml IV UD Citalopram Hydrobromide 20 mg* [ceLEXa 20 MG] Med 10/13/22 10:00 Active 20 mg PO DAILY Cyanocobalamin 500 Mcg [Vitamin B-12 500 MCG] Med 10/13/22 10:00 Active 500 mcg PO DAILY Fluticasone/Salmeterol 230/21 [Advair Hfa 230/21 Mcg Med 10/13/22 07:00 Active COMMON CANISTER*] 2 puff IH BIDRT Gabapentin [Neurontin ] Med 10/12/22 22:00 Active 300 mg PO TID Insulin Glargine [Lantus Insulin] Med 10/12/22 22:00 Active 20 unit SQ HS Insulin Regular, Human [Humulin R] Med 10/13/22 11:52 Active See Dose Instructions SQ UD PRN Magnesium Hydroxide 30 ml [Milk of Magnesia 30 ml Med 10/13/22 07:09 Active ] 30 ml PO DAILY PRN PRN Medication Intervention Med 10/13/22 10:00 Discontinued 1 each MC DAILY NaCl 0.9% 1000 ml [Sodium Chloride 0.9% 1000 ML] 1,000 Med 10/12/22 12:40 Discontinued ml .ROUTE UD NaCl 0.9% 1000 ml [Sodium Chloride 0.9% 1000 ML] 1,000 Med 10/12/22 12:15 Discontinued ml IV 100 mls/hr NaCl 0.9% 1000 ml [Sodium Chloride 0.9% 1000 ML] 1,000 Med 10/12/22 17:39 Active ml IV 50 mls/hr Ondansetron HCl 4 mg/2 ml [Zofran 4 MG/2 ML VIAL] Med 10/12/22 17:39 Active 4 mg IV Q6H PRN PRN PANTOPRAZOLE 40 mg Tablet [Protonix 40MG Tablet] Med 10/13/22 10:00 Active 40 mg PO DAILY Patient Own Med [Patient Own Medication] Med 10/13/22 10:00 Active 1 each PO BID Quinapril HCl 10 mg [Accupril 10MG Tablet] Med 10/13/22 10:00 Active 10 mg PO DAILY Simvastatin 20Mg [Zocor 20Mg] Med 10/13/22 22:00 Active 40 mg PO HS Theophylline Anhydrous [Theophylline ER 24Hr] Med 10/12/22 22:00 Discontinued 300 mg PO BID Tramadol HCl 50 mg [Ultram 50 mg] Med 10/12/22 20:09 Active 50 mg PO Q6H PRN PRN Vitamin E 400 Units [Vitamin E 400 UNIT SOFTGEL] Med 10/13/22 10:00 Active 400 units PO DAILY PT Eval & Treat (MD Order) ONCE PT 10/13/22 09:12 Completed Oxygen NASAL CANNULA 2 lpm RT 10/12/22 18:14 Active Pulse Oximetry .spot check RT 10/12/22 17:39 Active RT Screen per Nursing Assess ONCE RT 10/12/22 18:15 Completed Respiratory Therapy Assessment DAILY RT 10/12/22 20:21 Active Patient Care Notes (Last 24 hours) 10/13/22 10:25 Case Management Note by Yasemin Jane PATIENT REPORTS THEY HAD BEDBUGS AT ONE POINT IN TIME. SHE REPORTS HER CHILDREN TREATED HER HOME THOROUGHLY. SHE EVEN STAYED IN A HOTEL WHILE THEY DID THIS. SHE REPORTS SHE WAS UNAWARE THERE WERE ANY CURRENT ISSUES UNTIL ONE WAS NOTED ON ADMISSION. SHE REPORTS HER CHILDREN ARE GOING TO LOOK AT HER HOME AND WILL TREAT IT AGAIN IF NECESSARY. PATIENT GIVEN BEDBUG HANDOUT FOR EDUCATION Initialized on 10/13/22 10:25 - END OF NOTE Code(s): N39.0 - URINARY TRACT INFECTION, SITE NOT SPECIFIED (2) Dizziness Current Visit: Yes Status: Resolved Code(s): R42 - DIZZINESS AND GIDDINESS (3) Weakness Current Visit: Yes Status: Acute Code(s): R53.1 - WEAKNESS
[2022-10-13] MEDS: Lantus Insulin SQ SCH (20:44)
[2022-10-13] MEDS: ZOCOR 20MG PO SCH (20:45)
[2022-10-13] MEDS ORDERED: NON-FORMULARY ITEM (Rosuvastatin Calcium [Rosuvastatin Calcium] 20 MG Tablet) PO SCH (22:00)
[2022-10-14] MEDS ORDERED: Spiriva 18 Mcg/Cap Inhaler IH ONE (07:10)
[2022-10-14] MEDS: Advair Hfa 230/21 Mcg COMMON CANISTER IH SCH ×2 (07:15→18:44)
[2022-10-14 08:56] LABS: Absolute Neutrophil Ct (ANC) 6.98 x10^3/uL (1.4-6.9); BASOPHIL % 0.7 % (0.0-0.4); Basophil (Absolute #) 0.07 x10^3/uL (0-0.4); Eosinophil % 2.7 % (0.00-5.0); Eosinophil (Absolute #) 0.26 x10^3/uL (0-0.5); Hematocrit 36.8 % (35-47); Hemoglobin 11.7 g/dL (12.0-16.0); IMMATURE GRAN # 0.07 x10^3u/L (0.00-0.03); IMMATURE GRAN % 0.7 % (0.00-0.4); Lymphocyte (Absolute #) 1.37 x10^3/uL (1.0-4.6); Lymphocytes % 14.2 % (24.0-44.0); Mean Cell Volume 88.2 fL (78-100); Mean Corpuscular Hemoglobin 28.1 pg (26-32); Mean Corpuscular Hgb Concent. 31.8 g/dL (32-36); Mean Platelet Volume 9.9 fL (7.5-11.0); Monocyte (Absolute #) 0.88 x10^3/uL (0.0-1.3); Monocytes % 9.1 % (0.0-12.0); Neutrophil % 72.6 % (36.0-66.0); Platelet Count 307 x10^3/uL (150-450); Red Blood Count 4.17 x10^6/uL (4.1-5.4); Red Cell Distribution Width 14.1 % (11.5-14.0); White Blood Count 9.6 x10^3/uL (4.0-10.5)
[2022-10-14 09:16] LABS: ALBUMIN 3.3 g/dL (3.5-5.0); ALKALINE PHOSPHATASE 91 U/L (38-126); ANION GAP 4.4 MEQ/L (5-15); BLOOD UREA NITROGEN 14 mg/dL (7-17); CHLORIDE 103 mmol/L (98-107); Calcium 8.7 mg/dL (8.4-10.2); Carbon Dioxide 39 mmol/L (22-30); Creatinine 1 0.45 mg/dL (0.52-1.04); EST GLOMERULAR FILTRATION RATE > 60.0 ML/MIN; Glucose 151 mg/dL (74-106); Potassium 3.2 mmol/L (3.5-5.1); SGOT/AST 24 U/L (14-36); SGPT/ALT 14 U/L (0-35); SODIUM 142 mmol/L (137-145); Total Protein 6.3 g/dL (6.3-8.2)
[2022-10-14] MEDS: Accupril 10MG Tablet PO SCH (09:42)
[2022-10-14] MEDS: ROCEPHIN 1 Gm-D5w 50 ml Bag** 1 G/50 ML IVPB IV SCH (09:42)
[2022-10-14] MEDS: Vitamin B-12 500 MCG PO SCH (09:42)
[2022-10-14] MEDS: Coreg PO SCH (09:42)
[2022-10-14] MEDS: Protonix 40MG Tablet PO SCH (09:42)
[2022-10-14] MEDS: NEURONTIN PO SCH ×3 (09:42→21:30)
[2022-10-14] MEDS: ceLEXa 20 MG PO SCH (09:42)
[2022-10-14] MEDS: PATIENT OWN MEDICATION PO SCH ×2 (09:43→21:31)
[2022-10-14] MEDS: Vitamin E 400 UNIT SOFTGEL PO SCH (09:43)
[2022-10-14] MEDS: Klor Con PO SCH ×4 (10:39→16:53)
--- NOTE | 2022-10-14 17:15 | PCM.NOTE ---
Date and Time: 10/14/221713 Subjective Assessment: doing ok - Review of Systems Constitutional: No Fever, No Chills Eyes: No Symptoms Ears, Nose, & Throat: No Symptoms Respiratory: No Cough, No Short Of Breath Cardiac: No Chest Pain, No Edema, No Syncope Abdominal/Gastrointestinal: No Abdominal Pain, No Nausea, No Vomiting, No Diarrhea Genitourinary Symptoms: No Dysuria Musculoskeletal: No Back Pain, No Neck Pain Skin: No Rash Neurological: No Dizziness, No Focal Weakness, No Sensory Changes Psychological: No Symptoms Endocrine: No Symptoms Hematologic/Lymphatic: No Symptoms Immunological/Allergic: No Symptoms Objective Exam General Appearance: no apparent distress, alert Neurologic Exam: alert, oriented x 3, cooperative, normal mood/affect, nml cerebellar function, sensation nml, No motor deficits Skin Exam: normal color, warm, dry Eye Exam: PERRL, EOMI, eyes nml inspection Ears, Nose, Throat Exam: normal ENT inspection, pharynx normal, moist mucous membranes Neck Exam: normal inspection, non-tender, supple, full range of motion Respiratory Exam: normal breath sounds, lungs clear, No respiratory distress Cardiovascular Exam: regular rate/rhythm, normal heart sounds Gastrointestinal/Abdomen Exam: soft, No tenderness, No mass Extremity Exam: normal inspection, normal range of motion Back Exam: normal inspection, normal range of motion, No CVA tenderness, No vertebral tenderness Pelvic Exam: deferred Rectal Exam: deferred OBJECTIVE DATA Vital Signs: Vital Signs - 24 hr Temp Pulse Resp BP Pulse Ox 10/14/22 16:00 98.4 F 61 18 125/59 99 10/14/22 12:00 98.4 F 66 18 138/65 100 10/14/22 07:15 70 18 99 10/14/22 07:14 97.5 F 73 17 152/72 99 10/14/22 04:00 97.3 F 74 15 125/57 100 10/13/22 23:34 97.9 F 84 17 130/74 98 10/13/22 19:43 98 F 74 16 124/67 100 10/13/22 18:04 74 16 100 Pain Assessment - Last Documented Pain Intensity 0 Intake and Output: Intake & Output 10/12/22 10/13/22 10/14/22 10/15/22 11:59 11:59 11:59 11:59 Intake Total 240 1963 240 Output Total 300 Balance -60 1963 240 Weight 65.771 kg 67.5 kg 67.5 kg 67.5 kg Lab Results: Lab Results-Last 24 Hours 10/13/22 10/14/22 10/14/22 Range/Units 19:33 07:04 08:54 WBC 9.6 (4.0-10.5) x10^3/uL RBC 4.17 (4.1-5.4) x10^6/uL Hgb 11.7 L (12.0-16.0) g/dL Hct 36.8 (35-47) % MCV 88.2 (78-100) fL MCH 28.1 (26-32) pg MCHC 31.8 L (32-36) g/dL RDW 14.1 H (11.5-14.0) % Plt Count 307 (150-450) x10^3/uL MPV 9.9 (7.5-11.0) fL Gran % 72.6 H (36.0-66.0) % Immature Gran % (Auto) 0.7 H (0.00-0.4) % Nucleat RBC Rel Count 0.0 (0.00-0.1) % Eos # (Auto) 0.26 (0-0.5) x10^3/uL Immature Gran # (Auto) 0.07 H (0.00-0.03) x10^3u/L Absolute Lymphs (auto) 1.37 (1.0-4.6) x10^3/uL Absolute Monos (auto) 0.88 (0.0-1.3) x10^3/uL Absolute Nucleated RBC 0.00 (0.00-0.01) x10^3u/L Lymphocytes % 14.2 L (24.0-44.0) % Monocytes % 9.1 (0.0-12.0) % Eosinophils % 2.7 (0.00-5.0) % Basophils % 0.7 (0.0-0.4) % Absolute Granulocytes 6.98 H (1.4-6.9) x10^3/uL Basophils # 0.07 (0-0.4) x10^3/uL Sodium (137-145) mmol/L Potassium (3.5-5.1) mmol/L Chloride (98-107) mmol/L Carbon Dioxide (22-30) mmol/L Anion Gap (5-15) MEQ/L BUN (7-17) mg/dL Creatinine (0.52-1.04) mg/dL Estimated GFR ML/MIN Glucose (74-106) mg/dL POC Glucometer 197 H 133 H (74 to 106) mg/dL Calcium (8.4-10.2) mg/dL Total Bilirubin (0.2-1.3) mg/dL AST (14-36) U/L ALT (0-35) U/L Alkaline Phosphatase (38-126) U/L Serum Total Protein (6.3-8.2) g/dL Albumin (3.5-5.0) g/dL 10/14/22 10/14/22 10/14/22 Range/Units 08:54 11:45 14:17 WBC (4.0-10.5) x10^3/uL RBC (4.1-5.4) x10^6/uL Hgb (12.0-16.0) g/dL Hct (35-47) % MCV (78-100) fL MCH (26-32) pg MCHC (32-36) g/dL RDW (11.5-14.0) % Plt Count (150-450) x10^3/uL MPV (7.5-11.0) fL Gran % (36.0-66.0) % Immature Gran % (Auto) (0.00-0.4) % Nucleat RBC Rel Count (0.00-0.1) % Eos # (Auto) (0-0.5) x10^3/uL Immature Gran # (Auto) (0.00-0.03) x10^3u/L Absolute Lymphs (auto) (1.0-4.6) x10^3/uL Absolute Monos (auto) (0.0-1.3) x10^3/uL Absolute Nucleated RBC (0.00-0.01) x10^3u/L Lymphocytes % (24.0-44.0) % Monocytes % (0.0-12.0) % Eosinophils % (0.00-5.0) % Basophils % (0.0-0.4) % Absolute Granulocytes (1.4-6.9) x10^3/uL Basophils # (0-0.4) x10^3/uL Sodium 142 (137-145) mmol/L Potassium 3.2 L (3.5-5.1) mmol/L Chloride 103 (98-107) mmol/L Carbon Dioxide 39 H (22-30) mmol/L Anion Gap 4.4 L (5-15) MEQ/L BUN 14 (7-17) mg/dL Creatinine 0.45 L (0.52-1.04) mg/dL Estimated GFR > 60.0 ML/MIN Glucose 151 H (74-106) mg/dL POC Glucometer 207 H 150 H (74 to 106) mg/dL Calcium 8.7 (8.4-10.2) mg/dL Total Bilirubin 0.70 (0.2-1.3) mg/dL AST 24 (14-36) U/L ALT 14 (0-35) U/L Alkaline Phosphatase 91 (38-126) U/L Serum Total Protein 6.3 (6.3-8.2) g/dL Albumin 3.3 L (3.5-5.0) g/dL 10/14/22 10/14/22 Range/Units 14:29 16:27 WBC (4.0-10.5) x10^3/uL RBC (4.1-5.4) x10^6/uL Hgb (12.0-16.0) g/dL Hct (35-47) % MCV (78-100) fL MCH (26-32) pg MCHC (32-36) g/dL RDW (11.5-14.0) % Plt Count (150-450) x10^3/uL MPV (7.5-11.0) fL Gran % (36.0-66.0) % Immature Gran % (Auto) (0.00-0.4) % Nucleat RBC Rel Count (0.00-0.1) % Eos # (Auto) (0-0.5) x10^3/uL Immature Gran # (Auto) (0.00-0.03) x10^3u/L Absolute Lymphs (auto) (1.0-4.6) x10^3/uL Absolute Monos (auto) (0.0-1.3) x10^3/uL Absolute Nucleated RBC (0.00-0.01) x10^3u/L Lymphocytes % (24.0-44.0) % Monocytes % (0.0-12.0) % Eosinophils % (0.00-5.0) % Basophils % (0.0-0.4) % Absolute Granulocytes (1.4-6.9) x10^3/uL Basophils # (0-0.4) x10^3/uL Sodium (137-145) mmol/L Potassium 3.5 (3.5-5.1) mmol/L Chloride (98-107) mmol/L Carbon Dioxide (22-30) mmol/L Anion Gap (5-15) MEQ/L BUN (7-17) mg/dL Creatinine (0.52-1.04) mg/dL Estimated GFR ML/MIN Glucose (74-106) mg/dL POC Glucometer 138 H (74 to 106) mg/dL Calcium (8.4-10.2) mg/dL Total Bilirubin (0.2-1.3) mg/dL AST (14-36) U/L ALT (0-35) U/L Alkaline Phosphatase (38-126) U/L Serum Total Protein (6.3-8.2) g/dL Albumin (3.5-5.0) g/dL Multi-Disciplinary Progress Notes: Multi-Disciplinary Progress Notes 10/14/22 15:03 Physical Therapy Note by Marcelino(#[id number],Crow Pt refused IP PT. Pt stated that she just got in bed. Initialized on 10/14/22 15:03 - END OF NOTE 10/14/22 10:13 Case Management Note by Yasemin Jane S/Ian PATIENT- SHE CONTINUES TO REFUSED A REHAB STAY. SHE PLANS TO RETURN HOME TO HER PLF AT TIME OF DC. SHE REPORTS HER CAN ASSIST HER AT TIME OF DC. SHE IS AGREEABLE TO [facility]. SHE WOULD LIKE [facility] SHE HAS HAD THEM IN THE PAST. REFERRAL FAXED AT THIS TIME. THEY WILL NEED NOTIFIED AT TIME OF DC AT [phone]. THEY WILL NEED FAXED THE DC INSTRUCTIONS, DC MED LIST AND DC SUMMARY (IF AVAILABLE) TO [phone] Initialized on 10/14/22 10:13 - END OF NOTE 10/14/22 09:39 Physical Therapy Note by Bob(Suma#[id number])Alicia S: PATIENT STATES SHE TOLD THE DOCTOR ABOUT THERAPY YESTERDAY AND THAT THERAPY GOT HER UP AND WALKED. STATES M.D. WASN'T HAPPY AND JUST WANTED THERAPY TO HAVE HER "MOVE AROUND". NO RESTRICTIONS WERE ON ORIGINAL ORDER. PATIENT DID NOT WANT TO WALK THIS MORNING BUT DID AGREE TO PERFORM EXERCISES WHILE SITTING IN CHAIR. O: PERFORMED THERAPEUTIC EXERCISES IN SITTING FOR LOWER EXTREMITY MOBILITY AND STRENGTHENING FOLLOWS: 10 REPS ANKLE PUMPS VENITA, KNEE EXTENSION 8 REPS GLUT SETS AND ADDUCTOR SQUEEZES 5 REPS HIP FLEXION AND HIP ABDUCTION (WITH KNEE EXTENDED). PATIENT REPORTING SOB X 1 REQUIRING BRIEF REST PERIOD. O2 SATS ON 2 L 02 PER NC WAS 98% EDUCATED PATIENT ON BENEFITS OF WALKING AND STANDING BUT PATIENT REFUSED AT THIS TIME. P: INFORMED PATIENT WILL CHECK WITH HER IN THE P.M. TO SEE IF SHE WOULD BE WILLING TO WALK OR AT LEAST PERFORM MORE EXERCISES. PATIENT ACKNOWLEDGED. Initialized on 10/14/22 09:39 - END OF NOTE Assessment/Plan (1) UTI (urinary tract infection) Current Visit: Yes Status: Acute Qualifiers: Urinary tract infection type: acute pyelonephritis Qualified Code(s): N10 - Acute pyelonephritis Assessment & Plan: Chief Complaint Diagnosis c/o weakness and dizziness for 2-3 days Allergies Allergy/AdvReac Type Severity Reaction Status Date / Time Sulfa (Sulfonamide Allergy Severe Tightness Verified 10/12/22 12:35 Antibiotics) of Throat [Sulfa(Sulfonamide Antibiotics)] Iodinated Contrast Media Allergy Intermediate Rash Verified 10/12/22 12:35 [IV Dye, Iodine Containing Contrast ] iodine Allergy Intermediate Rash Verified 10/12/22 12:35 levofloxacin [From Levaquin] Allergy Intermediate Rash Verified 10/12/22 12:35 Penicillins Allergy Intermediate Swelling Verified 10/12/22 12:35 codeine [Codeine] Allergy Unknown Verified 10/12/22 12:35 oxytetracycline Allergy Unknown Verified 10/12/22 12:35 [From Terramycin] oxytetracycline HCl Allergy Unknown Verified 10/12/22 12:35 [From Terramycin] Vital Signs (Last 24 hours) Temp Pulse Resp BP Pulse Ox 10/14/22 16:00 98.4 F 61 18 125/59 99 10/14/22 12:00 98.4 F 66 18 138/65 100 10/14/22 07:15 70 18 99 10/14/22 07:14 97.5 F 73 17 152/72 99 10/14/22 04:00 97.3 F 74 15 125/57 100 10/13/22 23:34 97.9 F 84 17 130/74 98 10/13/22 19:43 98 F 74 16 124/67 100 10/13/22 18:04 74 16 100 Home Medications Medication Instructions Recorded Confirmed Last Taken Type Acetaminophen 325 mg [Tylenol 650 mg PO Q4H PRN PRN 10/12/22 10/12/22 Unknown History 325 mg] Citalopram Hydrobromide 20 mg* 20 mg PO DAILY 10/12/22 10/12/22 Unknown History [ceLEXa 20 MG] Insulin Glargine [Lantus 20 units SQ QHS 10/12/22 10/12/22 Unknown History Insulin] Magnesium Hydroxide 30 ml [Milk 30 ml PO DAILY PRN PRN 10/12/22 10/12/22 Unknown History of Magnesia 30 ml] Rosuvastatin Calcium 20 mg PO QHS 10/12/22 10/12/22 Unknown History Theophylline Anhydrous 300 mg PO BID 10/12/22 10/12/22 Unknown History [Theophylline ER] Tramadol HCl 50 mg [Ultram 50 50 mg PO Q6H PRN PRN 10/12/22 10/12/22 Unknown History mg] Current Medications Generic Name Dose Route Start Last Admin Trade Name Freq PRN Reason Stop Dose Admin Acetaminophen 650 mg 10/12/22 17:39 Acetaminophen 325 Mg Tablet PO 11/11/22 17:38 Q4H PRN PRN PAIN, FEVER, HEADACHE Albuterol Sulfate 2.5 mg 10/12/22 22:44 Albuterol Sulfate 2.5 Mg/3 Ml Neb IH 11/11/22 22:43 Q4H PRN PRN SHORTNESS OF BREATH/WHEEZING Albuterol Sulfate 4 puff 10/13/22 11:44 10/13/22 10:45 Albuterol Common Canister Inhaler IH 11/12/22 11:43 4 puff Q4H PRN PRN Administration SHORTNESS OF BREATH/WHEEZING Carvedilol 6.25 mg 10/13/22 10:00 10/14/22 09:42 Carvedilol 6.25 Mg Tablet PO 11/12/22 09:59 6.25 mg DAILY SONAL Administration Citalopram Hydrobromide 20 mg 10/13/22 10:00 10/14/22 09:42 Citalopram Hydrobromide 20 Mg Tablet PO 11/12/22 09:59 20 mg DAILY SONAL Administration Cyanocobalamin 500 mcg 10/13/22 10:00 10/14/22 09:42 Cyanocobalamin 500 Mcg Tablet PO 11/12/22 09:59 500 mcg DAILY SONAL Administration Gabapentin 300 mg 10/12/22 22:00 10/14/22 14:58 Gabapentin 300 Mg Capsule PO 11/11/22 21:59 300 mg TID SONAL Administration Ceftriaxone Sodium/Dextrose 1 g in 50 mls @ 100 mls/hr 10/13/22 10:00 10/14/22 09:42 Rocephin 1 Gm-D5w 50 Ml Bag IV 10/16/22 09:59 100 mls/hr Q24H10 SONAL Administration Sodium Chloride 1,000 mls @ 50 mls/hr 10/12/22 17:39 10/13/22 04:01 Sodium Chloride 0.9% 1000 Ml IV 11/11/22 17:38 50 mls/hr .Q20H SONAL Administration Insulin Glargine 20 unit 10/12/22 22:00 10/13/22 20:44 Insulin Glargine 1 Unit SQ 11/11/22 21:59 20 unit HS SONAL Administration Insulin Human Regular 0 unit 10/13/22 11:52 Insulin Regular, Human 1 Unit SQ 11/12/22 11:51 UD PRN high glucose Magnesium Hydroxide 30 ml 10/13/22 07:09 Magnesium Hydroxide 30 Ml Udcup PO 11/12/22 07:08 DAILY PRN PRN CONSTIPATION Ondansetron HCl 4 mg 10/12/22 17:39 Ondansetron Hcl 4 Mg/2 Ml Vial IV 11/11/22 17:38 Q6H PRN PRN NAUSEA/VOMITING Pantoprazole Sodium 40 mg 10/13/22 10:00 10/14/22 09:42 Protonix (Pantoprazole) 40 Mg Tablet PO 11/12/22 09:59 40 mg DAILY SONAL Administration Theophylline Er 1 each 10/13/22 10:00 10/14/22 09:43 300mg Tablet PO 11/12/22 09:59 1 each BID SONAL Administration Quinapril HCl 10 mg 10/13/22 10:00 10/14/22 09:42 Quinapril 10mg Tab PO 11/12/22 09:59 10 mg DAILY SONAL Administration Fluticasone/Salmeterol 2 puff 10/13/22 07:00 10/14/22 07:15 Fluticasone/Salmeterol 230/21 Common Canister IH 11/12/22 06:59 2 puff BIDRT SONAL Administration Simvastatin 40 mg 10/13/22 22:00 10/13/22 20:45 Simvastatin 20 Mg Tablet PO 11/12/22 21:59 40 mg HS SONAL Administration Tramadol HCl 50 mg 10/12/22 20:09 10/12/22 21:21 Tramadol Hcl 50 Mg Tablet PO 11/11/22 20:08 50 mg Q6H PRN PRN Administration PAIN Vitamin E 400 units 10/13/22 10:00 10/14/22 09:43 Vitamin E 400 Units 400 Units Capsule PO 11/12/22 09:59 400 units DAILY SONAL Administration Discontinued Medications Generic Name Dose Route Start Last Admin Trade Name Freq PRN Reason Stop Dose Admin Sodium Chloride 1,000 mls @ 100 mls/hr 10/12/22 12:15 10/12/22 12:42 Sodium Chloride 0.9% 1000 Ml IV 11/11/22 12:14 100 mls/hr .Q10H SONAL Administration Ceftriaxone Sodium/Dextrose 1 g in 50 mls @ 100 mls/hr 10/12/22 15:14 10/12/22 15:54 Rocephin 1 Gm-D5w 50 Ml Bag IV 10/12/22 15:43 Infused STAT STA Infusion Ceftriaxone Sodium/Dextrose Confirm 10/12/22 15:19 Rocephin 1 Gm-D5w 50 Ml Bag Administered 10/12/22 15:20 Dose 1 g in 50 mls @ ud IV .STK-MED ONE Sodium Chloride Confirm 10/12/22 12:40 Sodium Chloride 0.9% 1000 Ml Administered 10/12/22 12:41 Dose 1,000 mls @ ud .ROUTE .STK-MED ONE Miscellaneous Information 1 each 10/13/22 10:00 Medication Intervention 1 Each Each 11/12/22 09:59 DAILY SONAL Potassium Chloride 20 meq 10/14/22 10:00 10/14/22 16:53 Potassium Chloride Tab 10 Meq Tab PO 10/14/22 16:01 20 meq Q2H SONAL Administration Theophylline 300 mg 10/12/22 22:00 10/12/22 21:24 Theophylline Anhydrous 400 Mg Tab.Er.24hr Tablet PO 11/11/22 21:59 300 mg BID SONAL Administration Tiotropium [place] Confirm 10/14/22 07:10 Tiotropium [place] 18 Mcg/Cap Inhaler Administered 10/14/22 07:11 Dose 1 ea IH .STK-MED ONE Intake & Output (Last 24 hours) 10/12/22 10/13/22 10/14/22 10/15/22 11:59 11:59 11:59 11:59 Intake Total 240 1963 240 Output Total 300 Balance -60 1963 240 Weight 65.771 kg 67.5 kg 67.5 kg 67.5 kg Microbiology Results (Last 24 hours) 10/12/22 12:16 Urine, Catheterized Urine Culture - Final Escherichia Coli Laboratory Results (Last 24 hours) 10/14/22 10/14/22 10/14/22 16:27 14:29 14:17 WBC RBC Hgb Hct MCV MCH MCHC RDW Plt Count MPV Gran % Immature Gran % (Auto) Nucleat RBC Rel Count Eos # (Auto) Immature Gran # (Auto) Absolute Lymphs (auto) Absolute Monos (auto) Absolute Nucleated RBC Lymphocytes % Monocytes % Eosinophils % Basophils % Absolute Granulocytes Basophils # Sodium Potassium 3.5 Chloride Carbon Dioxide Anion Gap BUN Creatinine Estimated GFR Glucose POC Glucometer 138 H 150 H Calcium Total Bilirubin AST ALT Alkaline Phosphatase Serum Total Protein Albumin 10/14/22 10/14/22 10/14/22 11:45 08:54 08:54 WBC 9.6 RBC 4.17 Hgb 11.7 L Hct 36.8 MCV 88.2 MCH 28.1 MCHC 31.8 L RDW 14.1 H Plt Count 307 MPV 9.9 Gran % 72.6 H Immature Gran % (Auto) 0.7 H Nucleat RBC Rel Count 0.0 Eos # (Auto) 0.26 Immature Gran # (Auto) 0.07 H Absolute Lymphs (auto) 1.37 Absolute Monos (auto) 0.88 Absolute Nucleated RBC 0.00 Lymphocytes % 14.2 L Monocytes % 9.1 Eosinophils % 2.7 Basophils % 0.7 Absolute Granulocytes 6.98 H Basophils # 0.07 Sodium 142 Potassium 3.2 L Chloride 103 Carbon Dioxide 39 H Anion Gap 4.4 L BUN 14 Creatinine 0.45 L Estimated GFR > 60.0 Glucose 151 H POC Glucometer 207 H Calcium 8.7 Total Bilirubin 0.70 AST 24 ALT 14 Alkaline Phosphatase 91 Serum Total Protein 6.3 Albumin 3.3 L 10/14/22 10/13/22 07:04 19:33 WBC RBC Hgb Hct MCV MCH MCHC RDW Plt Count MPV Gran % Immature Gran % (Auto) Nucleat RBC Rel Count Eos # (Auto) Immature Gran # (Auto) Absolute Lymphs (auto) Absolute Monos (auto) Absolute Nucleated RBC Lymphocytes % Monocytes % Eosinophils % Basophils % Absolute Granulocytes Basophils # Sodium Potassium Chloride Carbon Dioxide Anion Gap BUN Creatinine Estimated GFR Glucose POC Glucometer 133 H 197 H Calcium Total Bilirubin AST ALT Alkaline Phosphatase Serum Total Protein Albumin Orders (Last 24 hours) Category Date Time Status BMP AM.LAB Lab 10/15/22 04:00 Ordered CBC W DIFF Urgent Lab 10/14/22 08:54 Completed CMP Urgent Lab 10/14/22 08:54 Completed MAGNESIUM AM.LAB Lab 10/15/22 04:00 Ordered POCT GLUCOSE Stat Lab 10/13/22 16:29 Completed POCT GLUCOSE Stat Lab 10/13/22 19:33 Completed POCT GLUCOSE Stat Lab 10/14/22 07:04 Completed POCT GLUCOSE Stat Lab 10/14/22 11:45 Completed POCT GLUCOSE Stat Lab 10/14/22 14:17 Completed POCT GLUCOSE Stat Lab 10/14/22 16:27 Completed Potassium Q4H Lab 10/14/22 14:29 Completed Potassium Q4H Lab 10/14/22 18:00 Ordered Potassium Q4H Lab 10/14/22 22:00 Ordered Potassium Chloride Tab* [Klor Con] Med 10/14/22 10:00 Discontinued 20 meq PO Q2H Simvastatin 20Mg [Zocor 20Mg] Med 10/13/22 22:00 Active 40 mg PO HS Tiotropium [place] Inhaler [Spiriva 18 Mcg/Cap Med 10/14/22 07:10 Discontinued Inhaler] 1 ea IH .STK-MED ONE Patient Care Notes (Last 24 hours) 10/14/22 15:03 Physical Therapy Note by Marcelino(#[id number] Pt refused IP PT. Pt stated that she just got in bed. Initialized on 10/14/22 15:03 - END OF NOTE 10/14/22 12:26 Nursing Note by Vianney Mendes Rounded with Dr Cooper. No new orders. May go home tomorrow. Initialized on 10/14/22 12:26 - END OF NOTE 10/14/22 10:13 Case Management Note by Yasemin Jane S/W PATIENT- SHE CONTINUES TO REFUSED A REHAB STAY. SHE PLANS TO RETURN HOME TO HER PLF AT TIME OF DC. SHE REPORTS HER CAN ASSIST HER AT TIME OF DC. SHE IS AGREEABLE TO [facility]. SHE WOULD LIKE [facility] SHE HAS HAD THEM IN THE PAST. REFERRAL FAXED AT THIS TIME. THEY WILL NEED NOTIFIED AT TIME OF DC AT [phone]. THEY WILL NEED FAXED THE DC INSTRUCTIONS, DC MED LIST AND DC SUMMARY (IF AVAILABLE) TO [phone] Initialized on 10/14/22 10:13 - END OF NOTE 10/14/22 09:39 Physical Therapy Note by Bob(Suma#[id number])Alicia: PATIENT STATES SHE TOLD THE DOCTOR ABOUT THERAPY YESTERDAY AND THAT THERAPY GOT HER UP AND WALKED. STATES M.D. WASN'T HAPPY AND JUST WANTED THERAPY TO HAVE HER "MOVE AROUND". NO RESTRICTIONS WERE ON ORIGINAL ORDER. PATIENT DID NOT WANT TO WALK THIS MORNING BUT DID AGREE TO PERFORM EXERCISES WHILE SITTING IN CHAIR. O: PERFORMED THERAPEUTIC EXERCISES IN SITTING FOR LOWER EXTREMITY MOBILITY AND STRENGTHENING FOLLOWS: 10 REPS ANKLE PUMPS VENITA, KNEE EXTENSION 8 REPS GLUT SETS AND ADDUCTOR SQUEEZES 5 REPS HIP FLEXION AND HIP ABDUCTION (WITH KNEE EXTENDED). PATIENT REPORTING SOB X 1 REQUIRING BRIEF REST PERIOD. O2 SATS ON 2 L 02 PER NC WAS 98% EDUCATED PATIENT ON BENEFITS OF WALKING AND STANDING BUT PATIENT REFUSED AT THIS TIME. P: INFORMED PATIENT WILL CHECK WITH HER IN THE P.M. TO SEE IF SHE WOULD BE WILLING TO WALK OR AT LEAST PERFORM MORE EXERCISES. PATIENT ACKNOWLEDGED. Initialized on 10/14/22 09:39 - END OF NOTE 10/13/22 19:31 Nursing Note by Ivette Lopez Received pt lying in bed on 2l/nc. pt aao x 4, resp even, unlabored. pt denies pain, sob, dizziness at this time. toileting offered, snack offered. white board updated. call light within reach. plan of care discussed with pt. all questions and concerns addressed and answered at this time. will cont to monitor. Initialized on 10/13/22 19:31 - END OF NOTE Code(s): N39.0 - URINARY TRACT INFECTION, SITE NOT SPECIFIED (2) Dizziness Current Visit: Yes Status: Resolved Code(s): R42 - DIZZINESS AND GIDDINESS (3) Weakness Current Visit: Yes Status: Acute Code(s): R53.1 - WEAKNESS
[2022-10-14] MEDS: Sodium Chloride 0.9% 1000 ML 1,000 ML IV SCH (20:54)
[2022-10-14] MEDS: ZOCOR 20MG PO SCH (21:30)
[2022-10-14] MEDS: ULTRAM 50 MG PO PRN (21:30)
[2022-10-14] MEDS: Lantus Insulin SQ SCH (21:34)
[2022-10-15 05:46] LABS: BLOOD UREA NITROGEN 16 mg/dL (7-17); CHLORIDE 103 mmol/L (98-107); Calcium 8.7 mg/dL (8.4-10.2); Carbon Dioxide 36 mmol/L (22-30); Creatinine 1 0.47 mg/dL (0.52-1.04); EST GLOMERULAR FILTRATION RATE > 60.0 ML/MIN; Glucose 150 mg/dL (74-106); MAGNESIUM 1.6 mg/dL (1.6-2.3); SODIUM 139 mmol/L (137-145)
[2022-10-15 06:43] VITALS: BP 132/62
[2022-10-15] MEDS: Advair Hfa 230/21 Mcg COMMON CANISTER IH SCH (07:15)
[2022-10-15 07:22] VITALS: PULSE 64; O2SAT 100
--- NOTE | 2022-10-15 08:32 | PCM.NOTE ---
Date and Time: 10/15/22830 Subjective Assessment: doing better - Review of Systems Constitutional: No Fever, No Chills Eyes: No Symptoms Ears, Nose, & Throat: No Symptoms Respiratory: No Cough, No Short Of Breath Cardiac: No Chest Pain, No Edema, No Syncope Abdominal/Gastrointestinal: No Abdominal Pain, No Nausea, No Vomiting, No Diarrhea Genitourinary Symptoms: No Dysuria Musculoskeletal: No Back Pain, No Neck Pain Skin: No Rash Neurological: No Dizziness, No Focal Weakness, No Sensory Changes Psychological: No Symptoms Endocrine: No Symptoms Hematologic/Lymphatic: No Symptoms Immunological/Allergic: No Symptoms Objective Exam General Appearance: no apparent distress, alert Neurologic Exam: alert, oriented x 3, cooperative, normal mood/affect, nml cerebellar function, sensation nml, No motor deficits Skin Exam: normal color, warm, dry Eye Exam: PERRL, EOMI, eyes nml inspection Ears, Nose, Throat Exam: normal ENT inspection, pharynx normal, moist mucous membranes Neck Exam: normal inspection, non-tender, supple, full range of motion Respiratory Exam: normal breath sounds, lungs clear, No respiratory distress Cardiovascular Exam: regular rate/rhythm, normal heart sounds Gastrointestinal/Abdomen Exam: soft, No tenderness, No mass Extremity Exam: normal inspection, normal range of motion Back Exam: normal inspection, normal range of motion, No CVA tenderness, No vertebral tenderness Pelvic Exam: deferred Rectal Exam: deferred OBJECTIVE DATA Vital Signs: Vital Signs - 24 hr Temp Pulse Resp BP Pulse Ox 10/15/22 07:19 64 16 100 10/15/22 06:42 98.0 F 69 18 132/62 97 10/15/22 04:00 97.7 F 66 19 138/66 98 10/15/22 00:00 97.7 F 75 17 138/71 98 10/14/22 20:00 97.9 F 62 18 130/67 99 10/14/22 18:44 61 17 100 10/14/22 16:00 98.4 F 61 18 125/59 99 10/14/22 12:00 98.4 F 66 18 138/65 100 Pain Assessment - Last Documented Pain Intensity 0 Intake and Output: Intake & Output 10/12/22 10/13/22 10/14/22 10/15/22 11:59 11:59 11:59 11:59 Intake Total 240 1963 2213 Output Total 300 Balance -60 1963 2213 Weight 65.771 kg 67.5 kg 67.5 kg 67.5 kg Lab Results: Lab Results-Last 24 Hours 10/14/22 10/14/22 10/14/22 Range/Units 08:54 08:54 11:45 WBC 9.6 (4.0-10.5) x10^3/uL RBC 4.17 (4.1-5.4) x10^6/uL Hgb 11.7 L (12.0-16.0) g/dL Hct 36.8 (35-47) % MCV 88.2 (78-100) fL MCH 28.1 (26-32) pg MCHC 31.8 L (32-36) g/dL RDW 14.1 H (11.5-14.0) % Plt Count 307 (150-450) x10^3/uL MPV 9.9 (7.5-11.0) fL Gran % 72.6 H (36.0-66.0) % Immature Gran % (Auto) 0.7 H (0.00-0.4) % Nucleat RBC Rel Count 0.0 (0.00-0.1) % Eos # (Auto) 0.26 (0-0.5) x10^3/uL Immature Gran # (Auto) 0.07 H (0.00-0.03) x10^3u/L Absolute Lymphs (auto) 1.37 (1.0-4.6) x10^3/uL Absolute Monos (auto) 0.88 (0.0-1.3) x10^3/uL Absolute Nucleated RBC 0.00 (0.00-0.01) x10^3u/L Lymphocytes % 14.2 L (24.0-44.0) % Monocytes % 9.1 (0.0-12.0) % Eosinophils % 2.7 (0.00-5.0) % Basophils % 0.7 (0.0-0.4) % Absolute Granulocytes 6.98 H (1.4-6.9) x10^3/uL Basophils # 0.07 (0-0.4) x10^3/uL Sodium 142 (137-145) mmol/L Potassium 3.2 L (3.5-5.1) mmol/L Chloride 103 (98-107) mmol/L Carbon Dioxide 39 H (22-30) mmol/L Anion Gap 4.4 L (5-15) MEQ/L BUN 14 (7-17) mg/dL Creatinine 0.45 L (0.52-1.04) mg/dL Estimated GFR > 60.0 ML/MIN Glucose 151 H (74-106) mg/dL POC Glucometer 207 H (74 to 106) mg/dL Calcium 8.7 (8.4-10.2) mg/dL Magnesium (1.6-2.3) mg/dL Total Bilirubin 0.70 (0.2-1.3) mg/dL AST 24 (14-36) U/L ALT 14 (0-35) U/L Alkaline Phosphatase 91 (38-126) U/L Serum Total Protein 6.3 (6.3-8.2) g/dL Albumin 3.3 L (3.5-5.0) g/dL 10/14/22 10/14/22 10/14/22 Range/Units 14:17 14:29 16:27 WBC (4.0-10.5) x10^3/uL RBC (4.1-5.4) x10^6/uL Hgb (12.0-16.0) g/dL Hct (35-47) % MCV (78-100) fL MCH (26-32) pg MCHC (32-36) g/dL RDW (11.5-14.0) % Plt Count (150-450) x10^3/uL MPV (7.5-11.0) fL Gran % (36.0-66.0) % Immature Gran % (Auto) (0.00-0.4) % Nucleat RBC Rel Count (0.00-0.1) % Eos # (Auto) (0-0.5) x10^3/uL Immature Gran # (Auto) (0.00-0.03) x10^3u/L Absolute Lymphs (auto) (1.0-4.6) x10^3/uL Absolute Monos (auto) (0.0-1.3) x10^3/uL Absolute Nucleated RBC (0.00-0.01) x10^3u/L Lymphocytes % (24.0-44.0) % Monocytes % (0.0-12.0) % Eosinophils % (0.00-5.0) % Basophils % (0.0-0.4) % Absolute Granulocytes (1.4-6.9) x10^3/uL Basophils # (0-0.4) x10^3/uL Sodium (137-145) mmol/L Potassium 3.5 (3.5-5.1) mmol/L Chloride (98-107) mmol/L Carbon Dioxide (22-30) mmol/L Anion Gap (5-15) MEQ/L BUN (7-17) mg/dL Creatinine (0.52-1.04) mg/dL Estimated GFR ML/MIN Glucose (74-106) mg/dL POC Glucometer 150 H 138 H (74 to 106) mg/dL Calcium (8.4-10.2) mg/dL Magnesium (1.6-2.3) mg/dL Total Bilirubin (0.2-1.3) mg/dL AST (14-36) U/L ALT (0-35) U/L Alkaline Phosphatase (38-126) U/L Serum Total Protein (6.3-8.2) g/dL Albumin (3.5-5.0) g/dL 10/14/22 10/14/22 10/14/22 Range/Units 18:10 20:30 22:15 WBC (4.0-10.5) x10^3/uL RBC (4.1-5.4) x10^6/uL Hgb (12.0-16.0) g/dL Hct (35-47) % MCV (78-100) fL MCH (26-32) pg MCHC (32-36) g/dL RDW (11.5-14.0) % Plt Count (150-450) x10^3/uL MPV (7.5-11.0) fL Gran % (36.0-66.0) % Immature Gran % (Auto) (0.00-0.4) % Nucleat RBC Rel Count (0.00-0.1) % Eos # (Auto) (0-0.5) x10^3/uL Immature Gran # (Auto) (0.00-0.03) x10^3u/L Absolute Lymphs (auto) (1.0-4.6) x10^3/uL Absolute Monos (auto) (0.0-1.3) x10^3/uL Absolute Nucleated RBC (0.00-0.01) x10^3u/L Lymphocytes % (24.0-44.0) % Monocytes % (0.0-12.0) % Eosinophils % (0.00-5.0) % Basophils % (0.0-0.4) % Absolute Granulocytes (1.4-6.9) x10^3/uL Basophils # (0-0.4) x10^3/uL Sodium (137-145) mmol/L Potassium 3.8 3.8 (3.5-5.1) mmol/L Chloride (98-107) mmol/L Carbon Dioxide (22-30) mmol/L Anion Gap (5-15) MEQ/L BUN (7-17) mg/dL Creatinine (0.52-1.04) mg/dL Estimated GFR ML/MIN Glucose (74-106) mg/dL POC Glucometer 148 H (74 to 106) mg/dL Calcium (8.4-10.2) mg/dL Magnesium (1.6-2.3) mg/dL Total Bilirubin (0.2-1.3) mg/dL AST (14-36) U/L ALT (0-35) U/L Alkaline Phosphatase (38-126) U/L Serum Total Protein (6.3-8.2) g/dL Albumin (3.5-5.0) g/dL 10/15/22 10/15/22 Range/Units 04:51 06:29 WBC (4.0-10.5) x10^3/uL RBC (4.1-5.4) x10^6/uL Hgb (12.0-16.0) g/dL Hct (35-47) % MCV (78-100) fL MCH (26-32) pg MCHC (32-36) g/dL RDW (11.5-14.0) % Plt Count (150-450) x10^3/uL MPV (7.5-11.0) fL Gran % (36.0-66.0) % Immature Gran % (Auto) (0.00-0.4) % Nucleat RBC Rel Count (0.00-0.1) % Eos # (Auto) (0-0.5) x10^3/uL Immature Gran # (Auto) (0.00-0.03) x10^3u/L Absolute Lymphs (auto) (1.0-4.6) x10^3/uL Absolute Monos (auto) (0.0-1.3) x10^3/uL Absolute Nucleated RBC (0.00-0.01) x10^3u/L Lymphocytes % (24.0-44.0) % Monocytes % (0.0-12.0) % Eosinophils % (0.00-5.0) % Basophils % (0.0-0.4) % Absolute Granulocytes (1.4-6.9) x10^3/uL Basophils # (0-0.4) x10^3/uL Sodium 139 (137-145) mmol/L Potassium 4.0 (3.5-5.1) mmol/L Chloride 103 (98-107) mmol/L Carbon Dioxide 36 H (22-30) mmol/L Anion Gap 4.0 L (5-15) MEQ/L BUN 16 (7-17) mg/dL Creatinine 0.47 L (0.52-1.04) mg/dL Estimated GFR > 60.0 ML/MIN Glucose 150 H (74-106) mg/dL POC Glucometer 123 H (74 to 106) mg/dL Calcium 8.7 (8.4-10.2) mg/dL Magnesium 1.6 (1.6-2.3) mg/dL Total Bilirubin (0.2-1.3) mg/dL AST (14-36) U/L ALT (0-35) U/L Alkaline Phosphatase (38-126) U/L Serum Total Protein (6.3-8.2) g/dL Albumin (3.5-5.0) g/dL Multi-Disciplinary Progress Notes: Multi-Disciplinary Progress Notes 10/14/22 15:03 Physical Therapy Note by Marcelino(#[id number] Pt refused IP PT. Pt stated that she just got in bed. Initialized on 10/14/22 15:03 - END OF NOTE 10/14/22 10:13 Case Management Note by Yasemin Jane S/W PATIENT- SHE CONTINUES TO REFUSED A REHAB STAY. SHE PLANS TO RETURN HOME TO HER PLF AT TIME OF DC. SHE REPORTS HER CAN ASSIST HER AT TIME OF DC. SHE IS AGREEABLE TO [facility]. SHE WOULD LIKE [facility] SHE HAS HAD THEM IN THE PAST. REFERRAL FAXED AT THIS TIME. THEY WILL NEED NOTIFIED AT TIME OF DC AT [phone]. THEY WILL NEED FAXED THE DC INSTRUCTIONS, DC MED LIST AND DC SUMMARY (IF AVAILABLE) TO [phone] Initialized on 10/14/22 10:13 - END OF NOTE 10/14/22 09:39 Physical Therapy Note by Bob(L#[id number])Alicia S: PATIENT STATES SHE TOLD THE DOCTOR ABOUT THERAPY YESTERDAY AND THAT THERAPY GOT HER UP AND WALKED. STATES M.D. WASN'T HAPPY AND JUST WANTED THERAPY TO HAVE HER "MOVE AROUND". NO RESTRICTIONS WERE ON ORIGINAL ORDER. PATIENT DID NOT WANT TO WALK THIS MORNING BUT DID AGREE TO PERFORM EXERCISES WHILE SITTING IN CHAIR. O: PERFORMED THERAPEUTIC EXERCISES IN SITTING FOR LOWER EXTREMITY MOBILITY AND STRENGTHENING FOLLOWS: 10 REPS ANKLE PUMPS VENITA, KNEE EXTENSION 8 REPS GLUT SETS AND ADDUCTOR SQUEEZES 5 REPS HIP FLEXION AND HIP ABDUCTION (WITH KNEE EXTENDED). PATIENT REPORTING SOB X 1 REQUIRING BRIEF REST PERIOD. O2 SATS ON 2 L 02 PER NC WAS 98% EDUCATED PATIENT ON BENEFITS OF WALKING AND STANDING BUT PATIENT REFUSED AT THIS TIME. P: INFORMED PATIENT WILL CHECK WITH HER IN THE P.M. TO SEE IF SHE WOULD BE WILLING TO WALK OR AT LEAST PERFORM MORE EXERCISES. PATIENT ACKNOWLEDGED. Initialized on 10/14/22 09:39 - END OF NOTE Assessment/Plan (1) UTI (urinary tract infection) Current Visit: Yes Status: Acute Qualifiers: Urinary tract infection type: acute pyelonephritis Qualified Code(s): N10 - Acute pyelonephritis Assessment & Plan: improved. Code(s): N39.0 - URINARY TRACT INFECTION, SITE NOT SPECIFIED (2) Dizziness Current Visit: Yes Status: Resolved Code(s): R42 - DIZZINESS AND GIDDINESS (3) Weakness Current Visit: Yes Status: Acute Code(s): R53.1 - WEAKNESS
[2022-10-15] MEDS: Protonix 40MG Tablet PO SCH (08:52)
[2022-10-15] MEDS: Coreg PO SCH (08:52)
[2022-10-15] MEDS: ROCEPHIN 1 Gm-D5w 50 ml Bag** 1 G/50 ML IVPB IV SCH (08:52)
[2022-10-15] MEDS: ceLEXa 20 MG PO SCH (08:52)
[2022-10-15] MEDS: NEURONTIN PO SCH (08:52)
[2022-10-15] MEDS: Accupril 10MG Tablet PO SCH (08:52)
[2022-10-15] MEDS: Vitamin B-12 500 MCG PO SCH (08:52)
[2022-10-15] MEDS: Vitamin E 400 UNIT SOFTGEL PO SCH (08:57)
[2022-10-15] MEDS: PATIENT OWN MEDICATION PO SCH (08:57)
--- NOTE | 2022-10-15 12:53 | PCM.DS ---
Discharge Summary Date of Admission: 10/12/22 17:05 Admitting Physician: RENETTA EPSTEIN Primary Care Provider: RENETTA EPSTEIN Allergies Allergies Sulfa (Sulfonamide Antibiotics) [Sulfa(Sulfonamide Antibiotics)] Allergy (Severe, Verified 10/12/22 12:35) Tightness of Throat Iodinated Contrast Media [IV Dye, Iodine Containing Contrast ] Allergy (In termediate, Verified 10/12/22 12:35) Rash iodine Allergy (Intermediate, Verified 10/12/22 12:35) Rash levofloxacin [From Levaquin] Allergy (Intermediate, Verified 10/12/22 12:35) Rash Penicillins Allergy (Intermediate, Verified 10/12/22 12:35) Swelling codeine [Codeine] Allergy (Unknown, Verified 10/12/22 12:35) unknown, states "just told not to take it oxytetracycline [From Terramycin] Allergy (Unknown, Verified 10/12/22 12:35) oxytetracycline HCl [From Terramycin] Allergy (Unknown, Verified 10/12/22 12:35) Hospital Summary - Hospital Course Hospital Course: Chief Complaint Diagnosis DIZZINESS AND WEAKNESS Allergies Allergy/AdvReac Type Severity Reaction Status Date / Time Sulfa (Sulfonamide Allergy Severe Tightness Verified 10/12/22 12:35 Antibiotics) of Throat [Sulfa(Sulfonamide Antibiotics)] Iodinated Contrast Media Allergy Intermediate Rash Verified 10/12/22 12:35 [IV Dye, Iodine Containing Contrast ] iodine Allergy Intermediate Rash Verified 10/12/22 12:35 levofloxacin [From Levaquin] Allergy Intermediate Rash Verified 10/12/22 12:35 Penicillins Allergy Intermediate Swelling Verified 10/12/22 12:35 codeine [Codeine] Allergy Unknown Verified 10/12/22 12:35 oxytetracycline Allergy Unknown Verified 10/12/22 12:35 [From Terramycin] oxytetracycline HCl Allergy Unknown Verified 10/12/22 12:35 [From Terramycin] Vital Signs (Last 24 hours) Temp Pulse Resp BP Pulse Ox 10/15/22 07:19 64 16 100 10/15/22 06:42 98.0 F 69 18 132/62 97 10/15/22 04:00 97.7 F 66 19 138/66 98 10/15/22 00:00 97.7 F 75 17 138/71 98 10/14/22 20:00 97.9 F 62 18 130/67 99 10/14/22 18:44 61 17 100 10/14/22 16:00 98.4 F 61 18 125/59 99 Home Medications Medication Instructions Recorded Confirmed Last Taken Type Acetaminophen 325 mg [Tylenol 650 mg PO Q4H PRN PRN 10/12/22 10/12/22 Unknown History 325 mg] Citalopram Hydrobromide 20 mg* 20 mg PO DAILY 10/12/22 10/12/22 Unknown History [ceLEXa 20 MG] Insulin Glargine [Lantus 20 units SQ QHS 10/12/22 10/12/22 Unknown History Insulin] Magnesium Hydroxide 30 ml [Milk 30 ml PO DAILY PRN PRN 10/12/22 10/12/22 Unknown History of Magnesia 30 ml] Rosuvastatin Calcium 20 mg PO QHS 10/12/22 10/12/22 Unknown History Theophylline Anhydrous 300 mg PO BID 10/12/22 10/12/22 Unknown History [Theophylline ER] Tramadol HCl 50 mg [Ultram 50 50 mg PO Q6H PRN PRN 10/12/22 10/12/22 Unknown History mg] Cephalexin Mh 500 mg [Keflex 500 500 mg PO QID 7 Days #28 cap 10/15/22 Unknown Rx mg] Current Medications Generic Name Dose Route Start Last Admin Trade Name Freq PRN Reason Stop Dose Admin Acetaminophen 650 mg 10/12/22 17:39 Acetaminophen 325 Mg Tablet PO 11/11/22 17:38 Q4H PRN PRN PAIN, FEVER, HEADACHE Albuterol Sulfate 2.5 mg 10/12/22 22:44 Albuterol Sulfate 2.5 Mg/3 Ml Neb 11/11/22 22:43 Q4H PRN PRN SHORTNESS OF BREATH/WHEEZING Albuterol Sulfate 4 puff 10/13/22 11:44 10/13/22 10:45 Albuterol Common Canister Inhaler 11/12/22 11:43 4 puff Q4H PRN PRN Administration SHORTNESS OF BREATH/WHEEZING Carvedilol 6.25 mg 10/13/22 10:00 10/15/22 08:52 Carvedilol 6.25 Mg Tablet PO 11/12/22 09:59 6.25 mg DAILY SONAL Administration Citalopram Hydrobromide 20 mg 10/13/22 10:00 10/15/22 08:52 Citalopram Hydrobromide 20 Mg Tablet PO 11/12/22 09:59 20 mg DAILY SONAL Administration Cyanocobalamin 500 mcg 10/13/22 10:00 10/15/22 08:52 Cyanocobalamin 500 Mcg Tablet PO 11/12/22 09:59 500 mcg DAILY SONAL Administration Gabapentin 300 mg 10/12/22 22:00 10/15/22 08:52 Gabapentin 300 Mg Capsule PO 11/11/22 21:59 300 mg TID SONAL Administration Ceftriaxone Sodium/Dextrose 1 g in 50 mls @ 100 mls/hr 10/13/22 10:00 10/15/22 08:52 Rocephin 1 Gm-D5w 50 Ml Bag IV 10/17/22 09:59 100 mls/hr Q24H10 SONAL Administration Sodium Chloride 1,000 mls @ 50 mls/hr 10/12/22 17:39 10/14/22 20:54 Sodium Chloride 0.9% 1000 Ml IV 11/11/22 17:38 50 mls/hr .Q20H SONAL Administration Insulin Glargine 20 unit 10/12/22 22:00 10/14/22 21:34 Insulin Glargine 1 Unit SQ 11/11/22 21:59 20 unit HS SONAL Administration Insulin Human Regular 0 unit 10/13/22 11:52 Insulin Regular, Human 1 Unit SQ 11/12/22 11:51 UD PRN high glucose Magnesium Hydroxide 30 ml 10/13/22 07:09 Magnesium Hydroxide 30 Ml Udcup PO 11/12/22 07:08 DAILY PRN PRN CONSTIPATION Ondansetron HCl 4 mg 10/12/22 17:39 Ondansetron Hcl 4 Mg/2 Ml Vial IV 11/11/22 17:38 Q6H PRN PRN NAUSEA/VOMITING Pantoprazole Sodium 40 mg 10/13/22 10:00 10/15/22 08:52 Protonix (Pantoprazole) 40 Mg Tablet PO 11/12/22 09:59 40 mg DAILY SONAL Administration Theophylline Er 1 each 10/13/22 10:00 10/15/22 08:57 300mg Tablet PO 11/12/22 09:59 1 each BID SONAL Administration Quinapril HCl 10 mg 10/13/22 10:00 10/15/22 08:52 Quinapril 10mg Tab PO 11/12/22 09:59 10 mg DAILY SONAL Administration Fluticasone/Salmeterol 2 puff 10/13/22 07:00 10/15/22 07:15 Fluticasone/Salmeterol 230/21 Common Canister IH 11/12/22 06:59 2 puff BIDRT SONAL Administration Simvastatin 40 mg 10/13/22 22:00 10/14/22 21:30 Simvastatin 20 Mg Tablet PO 11/12/22 21:59 40 mg HS SONAL Administration Tramadol HCl 50 mg 10/12/22 20:09 10/14/22 21:30 Tramadol Hcl 50 Mg Tablet PO 11/11/22 20:08 50 mg Q6H PRN PRN Administration PAIN Vitamin E 400 units 10/13/22 10:00 10/15/22 08:57 Vitamin E 400 Units 400 Units Capsule PO 11/12/22 09:59 400 units DAILY SONAL Administration Discontinued Medications Generic Name Dose Route Start Last Admin Trade Name Freq PRN Reason Stop Dose Admin Sodium Chloride 1,000 mls @ 100 mls/hr 10/12/22 12:15 10/12/22 12:42 Sodium Chloride 0.9% 1000 Ml IV 11/11/22 12:14 100 mls/hr .Q10H SONAL Administration Ceftriaxone Sodium/Dextrose 1 g in 50 mls @ 100 mls/hr 10/12/22 15:14 10/12/22 15:54 Rocephin 1 Gm-D5w 50 Ml Bag IV 10/12/22 15:43 Infused STAT STA Infusion Ceftriaxone Sodium/Dextrose Confirm 10/12/22 15:19 Rocephin 1 Gm-D5w 50 Ml Bag Administered 10/12/22 15:20 Dose 1 g in 50 mls @ ud IV .STK-MED ONE Sodium Chloride Confirm 10/12/22 12:40 Sodium Chloride 0.9% 1000 Ml Administered 10/12/22 12:41 Dose 1,000 mls @ ud .ROUTE .STK-MED ONE Miscellaneous Information 1 each 10/13/22 10:00 Medication Intervention 1 Each Each 11/12/22 09:59 DAILY SONAL Potassium Chloride 20 meq 10/14/22 10:00 10/14/22 16:53 Potassium Chloride Tab 10 Meq Tab PO 10/14/22 16:01 20 meq Q2H SONAL Administration Theophylline 300 mg 10/12/22 22:00 10/12/22 21:24 Theophylline Anhydrous 400 Mg Tab.Er.24hr Tablet PO 11/11/22 21:59 300 mg BID SONAL Administration Tiotropium [place] Confirm 10/14/22 07:10 Tiotropium [place] 18 Mcg/Cap Inhaler Administered 10/14/22 07:11 Dose 1 ea IH .STK-MED ONE Intake & Output (Last 24 hours) 10/13/22 10/14/22 10/15/22 10/16/22 11:59 11:59 11:59 11:59 Intake Total 240 1962 2453 Output Total 300 Balance -60 1962 2453 Weight 67.5 kg 67.5 kg 67.5 kg Laboratory Results (Last 24 hours) 10/15/22 10/15/22 10/14/22 06:29 04:51 22:15 Sodium 139 Potassium 4.0 3.8 Chloride 103 Carbon Dioxide 36 H Anion Gap 4.0 L BUN 16 Creatinine 0.47 L Estimated GFR > 60.0 Glucose 150 H POC Glucometer 123 H Calcium 8.7 Magnesium 1.6 10/14/22 10/14/22 10/14/22 20:30 18:10 16:27 Sodium Potassium 3.8 Chloride Carbon Dioxide Anion Gap BUN Creatinine Estimated GFR Glucose POC Glucometer 148 H 138 H Calcium Magnesium 10/14/22 10/14/22 14:29 14:17 Sodium Potassium 3.5 Chloride Carbon Dioxide Anion Gap BUN Creatinine Estimated GFR Glucose POC Glucometer 150 H Calcium Magnesium Orders (Last 24 hours) Category Date Time Status Discharge Routine Discharge 10/15/22 Ordered BMP AM.LAB Lab 10/15/22 04:51 Completed MAGNESIUM AM.LAB Lab 10/15/22 04:51 Completed POCT GLUCOSE Stat Lab 10/14/22 14:17 Completed POCT GLUCOSE Stat Lab 10/14/22 16:27 Completed POCT GLUCOSE Stat Lab 10/14/22 20:30 Completed POCT GLUCOSE Stat Lab 10/15/22 06:29 Completed Potassium Q4H Lab 10/14/22 14:29 Completed Potassium Q4H Lab 10/14/22 18:10 Completed Potassium Q4H Lab 10/14/22 22:15 Completed Patient Care Notes (Last 24 hours) 10/15/22 09:50 (created 10/15/22 09:51) Nursing Note by Sveta Ruiz Faxed DC records to [facility] Initialized on 10/15/22 09:51 - END OF NOTE 10/15/22 09:44 Nursing Note by Sveta Ruiz Called [facility] to notify them that patient is dc'ing home today. Initialized on 10/15/22 09:44 - END OF NOTE 10/15/22 09:36 Nursing Note by Anca Centeno RECEIVED ORDER FROM DR. EPSTEIN TO DISCHARGE PATIENT HOME TODAY AND TO CONTINUE ALL HOME MEDICATIONS AND SEND SCRIPT FOR LEVAQUIN 250MG PO DAILY X 5 DAYS. WILL SCHEDULE FOLLOW UP APPOINTMENT FOR NEXT WEEK. Initialized on 10/15/22 09:36 - END OF NOTE 10/15/22 09:34 Case Management Note by Yasemin Jane S/W PATIENT AND DAUGHTER- BOTH AGREE WITH PLAN TO DC HOME TODAY. [facility] HAS BEEN SET UP PER PATIENT REQUEST. THEY BOTH DENY ANY OTHER NEEDS AT TIME OF DC. THEY REPORT SHE HAS ALL OF HER OXYGEN EQUIPMENT AT HOME. THEY WERE GIVEN CDC FALL/SAFETY CHECKLIST EDUCATIONAL HANDOUT. Initialized on 10/15/22 09:34 - END OF NOTE 10/15/22 08:51 Case Management Note by Yasemin Jane [facility] HAS ACCEPTED PATIENT Initialized on 10/15/22 08:51 - END OF NOTE 10/14/22 15:03 Physical Therapy Note by Marcelino(#[id number] Pt refused IP PT. Pt stated that she just got in bed. Initialized on 10/14/22 15:03 - END OF NOTE - Vitals & Intake/Output Vital Signs: Vital Signs Temperature 98.0 F 10/15/22 06:42 Pulse Rate 64 10/15/22 07:19 Respiratory Rate 16 10/15/22 07:19 Blood Pressure 132/62 10/15/22 06:42 O2 Sat by Pulse Oximetry 100 10/15/22 07:19 Intake & Output: Intake & Output 10/13/22 10/14/22 10/15/22 10/16/22 11:59 11:59 11:59 11:59 Intake Total 240 1962 2452 Output Total 300 Balance -1962 Weight 67.5 kg 67.5 kg 67.5 kg - Lab Result Diagrams: 10/14/22 08:54 10/15/22 04:51 Lab Results-Last 24 Hrs: Lab Results-Last 24 Hours 10/14/22 10/14/22 10/14/22 Range/Units 14:17 14:29 16:27 Sodium (137-145) mmol/L Potassium 3.5 (3.5-5.1) mmol/L Chloride (98-107) mmol/L Carbon Dioxide (22-30) mmol/L Anion Gap (5-15) MEQ/L BUN (7-17) mg/dL Creatinine (0.52-1.04) mg/dL Estimated GFR ML/MIN Glucose (74-106) mg/dL POC Glucometer 150 H 138 H (74 to 106) mg/dL Calcium (8.4-10.2) mg/dL Magnesium (1.6-2.3) mg/dL 10/14/22 10/14/22 10/14/22 Range/Units 18:10 20:30 22:15 Sodium (137-145) mmol/L Potassium 3.8 3.8 (3.5-5.1) mmol/L Chloride (98-107) mmol/L Carbon Dioxide (22-30) mmol/L Anion Gap (5-15) MEQ/L BUN (7-17) mg/dL Creatinine (0.52-1.04) mg/dL Estimated GFR ML/MIN Glucose (74-106) mg/dL POC Glucometer 148 H (74 to 106) mg/dL Calcium (8.4-10.2) mg/dL Magnesium (1.6-2.3) mg/dL 10/15/22 10/15/22 Range/Units 04:51 06:29 Sodium 139 (137-145) mmol/L Potassium 4.0 (3.5-5.1) mmol/L Chloride 103 (98-107) mmol/L Carbon Dioxide 36 H (22-30) mmol/L Anion Gap 4.0 L (5-15) MEQ/L BUN 16 (7-17) mg/dL Creatinine 0.47 L (0.52-1.04) mg/dL Estimated GFR > 60.0 ML/MIN Glucose 150 H (74-106) mg/dL POC Glucometer 123 H (74 to 106) mg/dL Calcium 8.7 (8.4-10.2) mg/dL Magnesium 1.6 (1.6-2.3) mg/dL Micro Results-Entire Visit: Microbiology 10/12/22 12:16 Urine Culture - Final Urine, Catheterized Escherichia Coli Accuchecks Date 10/15/22 Date 10/14/22 Date 10/14/22 Time 06:42 Time 20:45 Time 16:41 - Procedures and Test Procedures and Tests throughout Hospitalization: Therapy Orders & Screens 10/12/22 18:14 Oxygen NASAL CANNULA 2 lpm Comment: Diagnosis: c/o weakness and dizziness for 2-3 days 10/12/22 18:15 RT Screen per Nursing Assess ONCE Comment: Protocol Order Physician Instructions: Greater than 3 points order RT Admission Screen Reason For Exam: Triggered on Admission Diagnosis: c/o weakness and dizziness for 2-3 days Diagnosis: c/o weakness and dizziness for 2-3 days Pneumonia: No Home O2: Yes Asthma: No CHF: No Home CPAP/BIPAP: No Home Nebs/MDI: Yes Total Points: 10 10/12/22 20:21 Respiratory Therapy Assessment DAILY Comment: Diagnosis: c/o weakness and dizziness for 2-3 days 10/13/22 09:12 PT Eval & Treat (MD Order) ONCE Reason for Eval:: weakness and falls Diagnosis: c/o weakness and dizziness for 2-3 days 10/13/22 15:02 PT Eval & Treat (MD Order) ONCE Reason for Eval:: MULTIPLE FALLS AT HOME - UNSTEADY GAIT - WEAKNESS Diagnosis: c/o weakness and dizziness for 2-3 days Discharge Exam General Appearance: no apparent distress, alert Neurologic Exam: alert, oriented x 3, cooperative, normal mood/affect, nml cerebellar function, sensation nml, No motor deficits Eye Exam: PERRL, EOMI, eyes nml inspection Ears, Nose, Throat Exam: normal ENT inspection, pharynx normal, moist mucous membranes Neck Exam: normal inspection, non-tender, supple, full range of motion Respiratory Exam: normal breath sounds, lungs clear, No respiratory distress Cardiovascular Exam: regular rate/rhythm, normal heart sounds Gastrointestinal/Abdomen Exam: soft, No tenderness, No mass Pelvic Exam: deferred Rectal Exam: deferred Back Exam: normal inspection, normal range of motion, No CVA tenderness, No vertebral tenderness Extremity Exam: normal inspection, normal range of motion Skin Exam: normal color, warm, dry Final Diagnosis/Problem List - Final Discharge Diagnosis/Problem (1) UTI (urinary tract infection) Current Visit: Yes Status: Resolved Code(s): N39.0 - URINARY TRACT INFEC TION, SITE NOT SPECIFIED (2) Dizziness Current Visit: Yes Status: Resolved Code(s): R42 - DIZZINESS AND GIDDINESS (3) Weakness Current Visit: Yes Status: Resolved Code(s): R53.1 - WEAKNESS - Discharge Discharge Date: 10/15/22 Disposition: Home, Self-Care Condition: Stable Prescriptions: New Cephalexin Mh 500 mg [Keflex 500 mg] 500 mg PO QID 7 Days #28 cap Continue Vitamin E Acid Succinate [Vitamin E] 400 unit PO DAILY Carvedilol [Coreg ] 6.25 mg PO DAILY Quinapril HCl 10 mg [Accupril 10MG Tablet] 10 mg PO DAILY PANTOPRAZOLE 40 mg Tablet [Protonix 40MG Tablet] 40 mg PO DAILY Cyanocobalamin 500 Mcg [Vitamin B-12 500 MCG] 500 mcg PO DAILY Gabapentin 300 mg PO TID Tramadol HCl 50 mg [Ultram 50 mg] 50 mg PO Q6H PRN PRN PRN Reason: Pain Theophylline Anhydrous [Theophylline ER] 300 mg PO BID Rosuvastatin Calcium 20 mg PO QHS Magnesium Hydroxide 30 ml [Milk of Magnesia 30 ml] 30 ml PO DAILY PRN PRN PRN Reason: Constipation Insulin Glargine [Lantus Insulin] 20 units SQ QHS Citalopram Hydrobromide 20 mg* [ceLEXa 20 MG] 20 mg PO DAILY Acetaminophen 325 mg [Tylenol 325 mg] 650 mg PO Q4H PRN PRN PRN Reason: Pain Instructions: Urinary Tract Infection, Adult (DC) Additional Instructions: REFERRAL WAS SENT TO [facility]. THEY WILL CONTACT YOU TO ARRANGE A VISIT. THEIR PHONE NUMBER IS [phone] Follow up with: RENETTA EPSTEIN MD [Primary Care Provider] - 10/22/22 10:00 am ([facility]) Forms: Discharge Instructions
== END 2022-10-15 10:32 | disposition home health service (06) ==
LOC: ED 11:30 → MERGE 11:30 → INTOOBSV 17:05 → MED SURG 17:05
PROVIDERS: ADMIT General Practice; ATTEND General Practice
DX: N39.0 Urinary tract infection, site not specified (principal); R42 Dizziness and giddiness; R53.1 Weakness; W19.XXXA Unspecified fall, initial encounter; R51.9 Headache, unspecified; E11.9 Type 2 diabetes mellitus without complications; I10 Essential (primary) hypertension; E78.5 Hyperlipidemia, unspecified; I48.91 Unspecified atrial fibrillation; Z99.81 Dependence on supplemental oxygen; Z20.828 Contact with and (suspected) exposure to other viral communicable diseases; Z79.899 Other long term (current) drug therapy; Z91.81 History of falling
CPT/HCPCS: 0241U; 36000; 36415; 70450; 71045; 72125; 80048; 80053; 81001; 82947; 83036; 83735; 84132; 84484; 85025; 85610; 87077; 87086; 87186; 93005; 93041; 93880; 94640; 94760; 96365; 96374; 97110; 97161; 97530; 99284; G0378; J0696; A9270-GY

== ENCOUNTER 2023-06-08 16:47 | Observation (INO) | payer MEDICARE ==
[2023-06-08] MEDS ORDERED: Sodium Chloride 0.9% 1000 ML 1,000 ML IV STA (17:17)
[2023-06-08] MEDS ORDERED: Sodium Chloride 0.9% 1000 ML 1,000 ML ONE (17:23)
--- NOTE | 2023-06-08 17:30 | ERPHSYRPT ---
- History of Present Illness Time Seen by Provider: 06/08/23 16:55 Source: patient Exam Limitations: no limitations Patient Subjective Stated Complaint: C/O weakness, fever, "not feeling well" for a few days. Patient also reports 2 falls at home where patient states she hit the left side of her head. No pain. Triage Nursing Assessment: Patient arrived by ambulance. She is awake but has disorganized thought; easily distracted. States she is 76 years old; patient actually 77 years old. She is is alert to name and place. She is tired; falls asleep often during assessment. Patient wearing oxygen at 2L per N/C but wears this continuously at home. No cough or SOB present. Patient is pale. Physician History: Patient is a 77-year-old female presents to our ED via EMS for evaluation of fever and generalized weakness x3 days. Patient states that she has been feeling so weak that she has fallen. Patient fell yesterday and hit the left side of her head. Patient denies headache. No abdominal pain or chest pain. Symptoms are progressive. Patient has a history of COPD. She requires nasal cannula oxygen at home. Symptoms are moderate in intensity. No specific worsening improving factors. Patient voices no other complaints or concerns at this time. Portions of this note were created with voice recognition technology. There may be grammatical, spelling, punctuation or sound alike errors Timing/Duration: day(s) (3 days) Severity: moderate Modifying Factors: Improves With: nothing Associated Symptoms: weakness Allergies/Adverse Reactions: Sulfa (Sulfonamide Antibiotics) [Sulfa(Sulfonamide Antibiotics)] Allergy (Severe, Verified 06/08/23 17:15) Tightness of Throat Iodinated Contrast Media [IV Dye, Iodine Containing Contrast ] Allergy (Intermediate, Verified 06/08/23 17:15) Rash iodine Allergy (Intermediate, Verified 06/08/23 17:15) Rash levofloxacin [From Levaquin] Allergy (Intermediate, Verified 06/08/23 17:15) Rash Penicillins Allergy (Intermediate, Verified 06/08/23 17:15) Swelling codeine [Codeine] Allergy (Unknown, Verified 06/08/23 17:15) unknown, states "just told not to take it oxytetracycline [From Terramycin] Allergy (Unknown, Verified 06/08/23 17:15) oxytetracycline HCl [From Terramycin] Allergy (Unknown, Verified 06/08/23 17:15) Home Medications: Gabapentin 300 mg PO TID 03/29/19 [History] Citalopram Hydrobromide 20 mg* [ceLEXa 20 MG] 40 mg PO DAILY 10/12/22 [History] Theophylline Anhydrous [Theophylline ER] 300 mg PO TID 10/12/22 [History] Aspirin EC 81 mg [Ecotrin 81 mg] 1 tab PO DAILY 06/08/23 [History] Atorvastatin Calcium [Lipitor] 1 tab PO DAILY 06/08/23 [History] Lisinopril 10 mg [Zestril 10 MG] 1 tab PO DAILY 06/08/23 [History] Omeprazole 1 cap PO DAILY 06/08/23 [History] Hx Tetanus, Diphtheria Vaccination/Date Given: Yes Hx Influenza Vaccination/Date Given: No Hx Pneumococcal Vaccination/Date Given: Yes Immunizations Up to Date: Yes Travel Risk - International Travel Have you traveled outside of the country in past 3 weeks: No - Coronavirus Screening Are you exhibiting any of the following symptoms?: Yes Symptoms: Fever, Headaches/Body Aches/Fatigue Close contact with a COVID-19 positive Pt in past 14-21 Days: No - Vaccine Status Have you recieved a Covid-19 vaccination: No - Review of Systems Constitutional: No Symptoms, No Fever, No Chills Eyes: No Symptoms Ears, Nose, & Throat: No Symptoms Respiratory: No Symptoms, No Cough, No Dyspnea Cardiac: No Symptoms, No Chest Pain, No Edema, No Syncope Abdominal/Gastrointestinal: No Symptoms, No Abdominal Pain, No Nausea, No Vomiting, No Diarrhea Genitourinary Symptoms: No Symptoms, No Dysuria Musculoskeletal: No Symptoms, No Back Pain, No Neck Pain Skin: No Symptoms, No Rash Neurological: No Symptoms, No Dizziness, No Focal Weakness, No Sensory Changes Psychological: No Symptoms Endocrine: No Symptoms Hematologic/Lymphatic: No Symptoms Immunological/Allergic: No Symptoms All Other Systems: Reviewed and Negative - Past Medical History Pertinent Past Medical History: Yes Neurological History: Other ENT History: Cataracts Cardiac History: High Cholesterol, Hypertension Respiratory History: COPD, Asthma Endocrine Medical History: Diabetes Type II Musculoskeletal History: Arthritis GI Medical History: Cirrhosis, GERD, Gallbladder Disease History: No Pertinent History Psycho-Social History: Anxiety, Depression Female Reproductive Disorders: No Pertinent History Other Medical History: DIAGNOSED WITH GIANG (LIVER PROBLEM). 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 - Past Surgical History Past Surgical History: Yes Neuro Surgical History: No Pertinent History Cardiac: No Pertinent History, Cardiac Catheterization Respiratory: No Pertinent History Gastrointestinal: Appendectomy, Bowel Surgery, Cholecystectomy Genitourinary: No Pertinent History Musculoskeletal: Orthopedic Surgery, Other Female Surgical History: Hysterectomy Other Surgical History: Right hip and femur surgery - Social History Smoking Status: Former smoker Exposure to second hand smoke: No Drug Use: none Patient Lives Alone: No () - Nursing Vital Signs Nursing Vital Signs: Initial Vital Signs Temperature 99.7 F 06/08/23 16:48 Pulse Rate 77 06/08/23 16:48 Respiratory Rate 23 06/08/23 16:48 Blood Pressure 133/53 06/08/23 16:48 O2 Sat by Pulse Oximetry 95 06/08/23 16:48 Pain Scale Pain Intensity 0 - Physical Exam General Appearance: no apparent distress, alert Eye Exam: PERRL/EOMI, eyes nml inspection Ears, Nose, Throat Exam: normal ENT inspection, TMs normal, pharynx normal, moist mucous membranes Neck Exam: normal inspection, non-tender, supple, full range of motion Respiratory Exam: normal breath sounds, lungs clear, airway intact, No respiratory distress Cardiovascular Exam: regular rate/rhythm, normal heart sounds, normal peripheral pulses Gastrointestinal/Abdomen Exam: soft, normal bowel sounds, No tenderness, No mass Back Exam: normal inspection, normal range of motion, No CVA tenderness, No vertebral tenderness Extremity Exam: normal inspection, normal range of motion, pelvis stable Neurologic Exam: alert, oriented x 3, cooperative, normal mood/affect, sensation nml, No motor deficits Skin Exam: normal color, warm, dry, No rash Lymphatic Exam: No adenopathy SpO2 Interpretation: normal SpO2: 98 O2 Delivery: Room Air - Course Nursing assessment & vital signs reviewed: Yes EKG Interpreted by Me: RATE (76), Sinus Rhythm, NORMAL AXIS, NORMAL INTERVALS - Radiology Exams Chest X-ray Interpretation: Interpreted by me (No acute findings) - CT Exams Head CT Interpretation: Tele-radiologist Report (Nonacute senile brain) Ordered Tests: Active Orders 24 hr Category Date Time Status Section Crews Activities Clerk STAT Care 06/08/23 17:18 Active EKG-ER Only STAT Care 06/08/23 17:17 Active IV Insertion STAT Care 06/08/23 17:17 Active Pulse Oximetry (ED) STAT Care 06/08/23 17:17 Active CHEST 1 VIEW (PORTABLE) Stat Exams 06/08/23 17:18 Taken HEAD WITHOUT CONTRAST [CT] Stat Exams 06/08/23 17:18 Taken BLOOD CULTURE Stat Lab 06/08/23 17:45 Received CBC W DIFF Stat Lab 06/08/23 17:36 Completed CMP Stat Lab 06/08/23 17:36 Completed CULTURE,URINE Stat Lab 06/08/23 19:53 Received Lactic Acid Stat Lab 06/08/23 17:36 Completed UA W/RFX UR CULTURE Stat Lab 06/08/23 19:53 Completed Transfer Order Routine Transfer 06/08/23 Ordered Medication Summary Generic Name Dose Route Start Last Admin Trade Name Freq PRN Reason Stop Dose Admin Levofloxacin/Dextrose 500 mg in 100 mls @ 100 mls/hr 06/08/23 20:47 06/08/23 21:05 Levofloxacin 500mg/100ml D5w IV 06/08/23 21:46 100 mls/hr STAT STA 100 mls/hr Administration Discontinued Medications Generic Name Dose Route Start Last Admin Trade Name Freq PRN Reason Stop Dose Admin Sodium Chloride 1,000 mls @ 999 mls/hr 06/08/23 17:17 06/08/23 18:38 Sodium Chloride 0.9% 1000 Ml IV 06/08/23 18:17 Infused .Q1H1M STA Infusion Sodium Chloride Confirm 06/08/23 17:23 Sodium Chloride 0.9% 1000 Ml Administered 06/08/23 17:24 Dose 1,000 mls @ ud .ROUTE .STK-MED ONE Levofloxacin/Dextrose Confirm 06/08/23 21:03 Levofloxacin 500mg/100ml D5w Administered 06/08/23 21:04 Dose 500 mg in 100 mls @ ud IV .STK-MED ONE Lab/Rad Data: Laboratory Result Diagrams 06/08/23 17:36 06/08/23 17:36 Laboratory Results 06/08/23 06/08/23 06/08/23 Range/Units 19:53 17:45 17:36 WBC (4.0-10.5) x10^3/uL RBC (4.1-5.4) x10^6/uL Hgb (12.0-16.0) g/dL Hct (35-47) % MCV (78-100) fL MCH (26-32) pg MCHC (32-36) g/dL RDW (11.5-14.0) % Plt Count (150-450) x10^3/uL MPV (7.5-11.0) fL Gran % (36.0-66.0) % Immature Gran % (Auto) (0.00-0.4) % Nucleat RBC Rel Count (0.00-0.1) % Eos # (Auto) (0-0.5) x10^3/uL Immature Gran # (Auto) (0.00-0.03) x10^3u/L Absolute Lymphs (auto) (1.0-4.6) x10^3/uL Absolute Monos (auto) (0.0-1.3) x10^3/uL Absolute Nucleated RBC (0.00-0.01) x10^3u/L Lymphocytes % (24.0-44.0) % Monocytes % (0.0-12.0) % Eosinophils % (0.00-5.0) % Basophils % (0.0-0.4) % Absolute Granulocytes (1.4-6.9) x10^3/uL Basophils # (0-0.4) x10^3/uL Sodium 136 L (137-145) mmol/L Potassium 3.8 (3.5-5.1) mmol/L Chloride 98 (98-107) mmol/L Carbon Dioxide 34 H (22-30) mmol/L Anion Gap 7.2 (5-15) MEQ/L BUN 19 H (7-17) mg/dL Creatinine 0.55 (0.52-1.04) mg/dL Estimated GFR 93.2 ML/MIN Glucose 153 H (74-106) mg/dL Lactic Acid (0.4-2.0) Calcium 9.4 (8.4-10.2) mg/dL Total Bilirubin 1.20 (0.2-1.3) mg/dL AST 24 (14-36) U/L ALT 15 (0-35) U/L Alkaline Phosphatase 75 (38-126) U/L Serum Total Protein 6.3 (6.3-8.2) g/dL Albumin 3.5 (3.5-5.0) g/dL Urine Color Dark Yellow A (Yellow) Urine Appearance Cloudy A (Clear) Urine pH 5.5 (4.6-8.0) Ur Specific [place] 1.020 (1.005-1.030) Urine Protein 30 (Negative) Urine Glucose (UA) Negative (Negative) mg/dL Urine Ketones Trace A (Negative) Urine Blood Moderate A (Negative) Urine Nitrite Positive A (Negative) Urine Bilirubin Negative (Negative) Urine Urobilinogen 1.0 A (0.2) mg/dL Ur Leukocyte Esterase Moderate A (Negative) U Hyaline Cast (Auto) 3-5 A (0-2) /LPF Urine Microscopic RBC 6-10 A (0-5) /HPF Urine Microscopic WBC >100 A (0-5) /HPF Ur Epithelial Cells Rare (None Seen) /HPF Urine Bacteria Many A (None Seen) /HPF Urine Culture Reflexed YES (NO) Influenza Type A Ag NEGATIVE (NEGATIVE) Influenza Type B Ag NEGATIVE (NEGATIVE) RSV (PCR) NEGATIVE (NEGATIVE) SARS-CoV-2 (PCR) NEGATIVE (NEGATIVE) 06/08/23 06/08/23 Range/Units 17:36 17:36 WBC 18.4 H (4.0-10.5) x10^3/uL RBC 3.88 L (4.1-5.4) x10^6/uL Hgb 11.2 L (12.0-16.0) g/dL Hct 35.4 (35-47) % MCV 91.2 (78-100) fL MCH 28.9 (26-32) pg MCHC 31.6 L (32-36) g/dL RDW 14.1 H (11.5-14.0) % Plt Count 152 (150-450) x10^3/uL MPV 9.7 (7.5-11.0) fL Gran % 85.3 H (36.0-66.0) % Immature Gran % (Auto) 1.2 H (0.00-0.4) % Nucleat RBC Rel Count 0.0 (0.00-0.1) % Eos # (Auto) 0 (0-0.5) x10^3/uL Immature Gran # (Auto) 0.22 H (0.00-0.03) x10^3u/L Absolute Lymphs (auto) 0.87 L (1.0-4.6) x10^3/uL Absolute Monos (auto) 1.58 H (0.0-1.3) x10^3/uL Absolute Nucleated RBC 0.00 (0.00-0.01) x10^3u/L Lymphocytes % 4.7 L (24.0-44.0) % Monocytes % 8.6 (0.0-12.0) % Eosinophils % 0.0 (0.00-5.0) % Basophils % 0.2 (0.0-0.4) % Absolute Granulocytes 15.66 H (1.4-6.9) x10^3/uL Basophils # 0.03 (0-0.4) x10^3/uL Sodium (137-145) mmol/L Potassium (3.5-5.1) mmol/L Chloride (98-107) mmol/L Carbon Dioxide (22-30) mmol/L Anion Gap (5-15) MEQ/L BUN (7-17) mg/dL Creatinine (0.52-1.04) mg/dL Estimated GFR ML/MIN Glucose (74-106) mg/dL Lactic Acid 1.0 (0.4-2.0) Calcium (8.4-10.2) mg/dL Total Bilirubin (0.2-1.3) mg/dL AST (14-36) U/L ALT (0-35) U/L Alkaline Phosphatase (38-126) U/L Serum Total Protein (6.3-8.2) g/dL Albumin (3.5-5.0) g/dL Urine Color (Yellow) Urine Appearance (Clear) Urine pH (4.6-8.0) Ur Specific [place] (1.005-1.030) Urine Protein (Negative) Urine Glucose (UA) (Negative) mg/dL Urine Ketones (Negative) Urine Blood (Negative) Urine Nitrite (Negative) Urine Bilirubin (Negative) Urine Urobilinogen (0.2) mg/dL Ur Leukocyte Esterase (Negative) U Hyaline Cast (Auto) (0-2) /LPF Urine Microscopic RBC (0-5) /HPF Urine Microscopic WBC (0-5) /HPF Ur Epithelial Cells (None Seen) /HPF Urine Bacteria (None Seen) /HPF Urine Culture Reflexed (NO) Influenza Type A Ag (NEGATIVE) Influenza Type B Ag (NEGATIVE) RSV (PCR) (NEGATIVE) SARS-CoV-2 (PCR) (NEGATIVE) - Progress Progress: improved Progress Note: Patient 77-year-old female presents to our ED for evaluation of a fever and malaise. Patient triggered the sepsis screen upon arrival. Work-up/CBC reveals leukocytosis of 18.4. CMP essentially unremarkable. EKG normal sinus rhythm. CT head was ordered as patient has a history of a fall hitting her head. No acute findings observed. Blood cultures obtained. Chest x-ray essentially negative for acute pathology. IV fluids infused as well as Levaquin antibiotics administered. Patient has a urinary tract infection that is extensive. Patient diagnosed with pyelonephritis/sepsis. Patient received a dose of Levaquin in our ED. Patient will require hospitalization for further evaluation and treatment. Family updated on the findings and plan of care. Daughter/patient agrees with admission to [facility] for further evaluation and treatment. Case discussed with Dr. Palma at 9:12 PM. Patient was excepted as an admit at that time. Patient reassessed. Patient is resting comfortably. Vital stable. Portions of this note were created with voice recognition technology. There may be grammatical, spelling, punctuation or sound alike errors Complexity of problems addressed is high, severe exacerbation threatening bodily function Critical care time is 2 hours. Patient's condition required immediate action to prevent further deterioration. IV fluids immediately administered along with Levaquin IV antibiotic Complex of data reviewed and analyzed is extensive. Test ordered test reviewed. Results analyzed. Clinical correlation made between our findings and history and physical examination. Management discussed with hospitalist, Dr. Palma who excepts admission to observation. Risk of complication and or risk of morbidity/mortality of patient management is high. Patient requires hospitalization for further evaluation and treatment. Vital stable. Time spent admit patient approximately 20 minutes. Plan of care established for shared decision making. Portions of this note were created with voice recognition technology. There may be grammatical, spelling, punctuation or sound alike errors 06/08/23 21:22 Counseled pt/family regarding: lab results, diagnosis, rad results - Departure Departure Disposition: Observation Clinical Impression: Urinary tract infection, Pyelonephritis, Leukocytosis Condition: Stable Critical Care Time: Yes Critical Care Time(excluding separately billable procedures): Critical 105-134 mins Referrals: RENETTA EPSTEIN MD [Primary Care Provider] - Follow up/PCP as directed
[2023-06-08 17:52] LABS: Absolute Neutrophil Ct (ANC) 15.66 x10^3/uL (1.4-6.9); BASOPHIL % 0.2 % (0.0-0.4); Basophil (Absolute #) 0.03 x10^3/uL (0-0.4); Eosinophil (Absolute #) 0 x10^3/uL (0-0.5); Hematocrit 35.4 % (35-47); Hemoglobin 11.2 g/dL (12.0-16.0); IMMATURE GRAN # 0.22 x10^3u/L (0.00-0.03); IMMATURE GRAN % 1.2 % (0.00-0.4); Lymphocyte (Absolute #) 0.87 x10^3/uL (1.0-4.6); Lymphocytes % 4.7 % (24.0-44.0); Mean Cell Volume 91.2 fL (78-100); Mean Corpuscular Hemoglobin 28.9 pg (26-32); Mean Corpuscular Hgb Concent. 31.6 g/dL (32-36); Mean Platelet Volume 9.7 fL (7.5-11.0); Monocyte (Absolute #) 1.58 x10^3/uL (0.0-1.3); Monocytes % 8.6 % (0.0-12.0); Neutrophil % 85.3 % (36.0-66.0); Platelet Count 152 x10^3/uL (150-450); Red Blood Count 3.88 x10^6/uL (4.1-5.4); Red Cell Distribution Width 14.1 % (11.5-14.0); White Blood Count 18.4 x10^3/uL (4.0-10.5)
[2023-06-08 18:09] LABS: ALBUMIN 3.5 g/dL (3.5-5.0); ANION GAP 7.2 MEQ/L (5-15); BILIRUBIN,TOTAL 1.2 mg/dL (0.2-1.3); Calcium 9.4 mg/dL (8.4-10.2); Creatinine 1 0.55 mg/dL (0.52-1.04); EST GLOMERULAR FILTRATION RATE 93.2 ML/MIN; Potassium 3.8 mmol/L (3.5-5.1); Total Protein 6.3 g/dL (6.3-8.2)
[2023-06-08 18:28] LABS: INFLUENZA A NEGATIVE (NEGATIVE); INFLUENZA B NEGATIVE (NEGATIVE); RESPIRATORY SYNCTIAL VIRUS NEGATIVE (NEGATIVE); SARS-CoV-2 Xpert Express NEGATIVE (NEGATIVE)
[2023-06-08 20:23] LABS: Appearance Cloudy (Clear); Bacteria Many /HPF (None Seen); Bilirubin Negative (Negative); Blood Moderate (Negative); Epithelial Cells Rare /HPF (None Seen); Glucose, Urine Negative (Negative); Ketones Trace (Negative); Leukocyte Esterase Moderate (Negative); Nitrite Positive (Negative); Ph 5.5 (4.6-8.0); Protein,Urine Dip 30 (Negative); WBC >100 /HPF (0-5)
[2023-06-08 20:27] LABS: ADD URINE CULTURE? YES (NO)
[2023-06-08] MEDS ORDERED: Levofloxacin 500MG/100ML D5W 500 MG/100 ML BAG IV STA (20:47)
[2023-06-08] MEDS ORDERED: Levofloxacin 500MG/100ML D5W 500 MG/100 ML BAG IV ONE (21:03)
[2023-06-08] MEDS ORDERED: HUMALOG SQ PRN (22:17)
[2023-06-08] MEDS ORDERED: DUONEB 0.5-3 MG/3 ml Neb IH PRN (22:17)
--- NOTE | 2023-06-08 22:24 | PCM.HP ---
History of Present Illness - Chief Complaint Chief Complaint: weakness, falls, malaise Date: 06/08/23 History of Present Illness: 77 y/o F with h/o DM2, COPD on 2L O2, HTN, who presents with two days of progressive severe weakness, confusion, dysuria. She fell twice in the last two days, and has felt weak overall, with mild confusion. Family noted temperature of 100.4 and brought patient to ED. She remains on her home 2L oxygen. Notes no change in chronic dyspnea or cough. No nausea, flank pain, or diarrhea. - Review of Systems Constitutional: Fever, Fatigue, Lethargy, Malaise Eyes: No Symptoms Ears, Nose, & Throat: No Symptoms Respiratory: Other (on 2L at home), No Cough, No Short Of Breath Cardiac: No Chest Pain, No Edema Abdominal/Gastrointestinal: No Abdominal Pain, No Nausea, No Vomiting, No Diarrhea Genitourinary Symptoms: Dysuria, No Hematuria All Other Systems: Reviewed and Negative Medications & Allergies Home Medications: Home Medication List Gabapentin 300 mg PO TID 03/29/19 [History Confirmed 06/08/23] Citalopram Hydrobromide 20 mg* [ceLEXa 20 MG] 40 mg PO DAILY 10/12/22 [History Confirmed 06/08/23] Theophylline Anhydrous [Theophylline ER] 300 mg PO TID 10/12/22 [History Confirm ed 06/08/23] Aspirin EC 81 mg [Ecotrin 81 mg] 1 tab PO DAILY 06/08/23 [History Confirmed 06/08/23] Atorvastatin Calcium [Lipitor] 1 tab PO DAILY 06/08/23 [History Confirmed 06/08/23] Lisinopril 10 mg [Zestril 10 MG] 1 tab PO DAILY 06/08/23 [History Confirmed 06/08/23] Omeprazole 1 cap PO DAILY 06/08/23 [History Confirmed 06/08/23] Allergies/Adverse Reactions: Allergies Allergy/AdvReac Type Severity Reaction Status Date / Time Sulfa (Sulfonamide Allergy Severe Tightness Verified 06/08/23 17:15 Antibiotics) of Throat [Sulfa(Sulfonamide Antibiotics)] Iodinated Contrast Media Allergy Intermediate Rash Verified 06/08/23 17:15 [IV Dye, Iodine Containing Contrast ] iodine Allergy Intermediate Rash Verified 06/08/23 17:15 levofloxacin [From Levaquin] Allergy Intermediate Rash Verified 06/08/23 17:15 Penicillins Allergy Intermediate Swelling Verified 06/08/23 17:15 codeine [Codeine] Allergy Unknown Verified 06/08/23 17:15 oxytetracycline Allergy Unknown Verified 06/08/23 17:15 [From Terramycin] oxytetracycline HCl Allergy Unknown Verified 06/08/23 17:15 [From Terramycin] - Past Medical History Past Medical History: Yes Neurological History: No Pertinent History ENT History: Cataracts Cardiac History: High Cholesterol, Hypertension Respiratory History: COPD, Asthma Endocrine Medical History: Diabetes Type II Musculoskelatal History: Arthritis GI Medical History: GERD, Gallbladder Disease History: No Pertinent History Pyscho-Social History: Anxiety, Depression Reproductive Disorders: No Pertinent History Comment: DIAGNOSED WITH GIANG (LIVER PROBLEM). 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 - Past Surgical History Past Surgical History: Yes Neuro Surgical History: No Pertinent History Cardiac History: No Pertinent History, Cardiac Catheterization Respiratory Surgery: No Pertinent History GI Surgical History: Appendectomy, Bowel Surgery, Cholecystectomy Genitourinary Surgical Hx: No Pertinent History Musculskeletal Surgical Hx: Orthopedic Surgery, Other Female Surgical History: Hysterectomy Other Surgical History: Right hip and femur surgery - Social History Smoking Status: Former smoker Exposure to second hand smoke: No Alcohol: None Drug Use: none Significant Family History: no pertinent family hx - Physical Exam Vital Signs: Vital Signs - 24 hr Temp Pulse Resp BP BP Pulse Ox 06/08/23 21:30 98 06/08/23 21:02 132/58 100 06/08/23 20:30 67 20 93/48 98 06/08/23 19:30 71 18 122/75 97 06/08/23 19:28 69 20 118/33 96 06/08/23 19:00 73 20 118/45 97 06/08/23 18:31 70 20 97/56 98 06/08/23 18:30 92 H 20 100 06/08/23 18:20 73 20 100 06/08/23 18:10 86 24 99 06/08/23 18:04 97 06/08/23 17:33 95 06/08/23 17:00 72 23 134/57 98 06/08/23 16:48 99.7 F 77 23 133/53 95 General Appearance: no apparent distress Neurologic Exam: confusion (mild, but falling asleep easily), No motor deficits, No sensory deficit, No facial droop Eye Exam: eyes nml inspection Respiratory Exam: wheezing (very minimal), other (on 2L Oxygen by NC), No respiratory distress, No diminished breath sounds, No accessory muscle use, No crackles/rales Cardiovascular Exam: regular rate/rhythm, normal heart sounds, No murmur, No edema Gastrointestinal/Abdomen Exam: No tenderness, No distention Results - Labs Lab/Micro Results: Lab Results-Last 24 Hours 06/08/23 06/08/23 06/08/23 Range/Units 17:36 17:36 17:36 WBC 18.4 H (4.0-10.5) x10^3/uL RBC 3.88 L (4.1-5.4) x10^6/uL Hgb 11.2 L (12.0-16.0) g/dL Hct 35.4 (35-47) % MCV 91.2 (78-100) fL MCH 28.9 (26-32) pg MCHC 31.6 L (32-36) g/dL RDW 14.1 H (11.5-14.0) % Plt Count 152 (150-450) x10^3/uL MPV 9.7 (7.5-11.0) fL Gran % 85.3 H (36.0-66.0) % Immature Gran % (Auto) 1.2 H (0.00-0.4) % Nucleat RBC Rel Count 0.0 (0.00-0.1) % Eos # (Auto) 0 (0-0.5) x10^3/uL Immature Gran # (Auto) 0.22 H (0.00-0.03) x10^3u/L Absolute Lymphs (auto) 0.87 L (1.0-4.6) x10^3/uL Absolute Monos (auto) 1.58 H (0.0-1.3) x10^3/uL Absolute Nucleated RBC 0.00 (0.00-0.01) x10^3u/L Lymphocytes % 4.7 L (24.0-44.0) % Monocytes % 8.6 (0.0-12.0) % Eosinophils % 0.0 (0.00-5.0) % Basophils % 0.2 (0.0-0.4) % Absolute Granulocytes 15.66 H (1.4-6.9) x10^3/uL Basophils # 0.03 (0-0.4) x10^3/uL Sodium 136 L (137-145) mmol/L Potassium 3.8 (3.5-5.1) mmol/L Chloride 98 (98-107) mmol/L Carbon Dioxide 34 H (22-30) mmol/L Anion Gap 7.2 (5-15) MEQ/L BUN 19 H (7-17) mg/dL Creatinine 0.55 (0.52-1.04) mg/dL Estimated GFR 93.2 ML/MIN Glucose 153 H (74-106) mg/dL Lactic Acid 1.0 (0.4-2.0) Calcium 9.4 (8.4-10.2) mg/dL Total Bilirubin 1.20 (0.2-1.3) mg/dL AST 24 (14-36) U/L ALT 15 (0-35) U/L Alkaline Phosphatase 75 (38-126) U/L Serum Total Protein 6.3 (6.3-8.2) g/dL Albumin 3.5 (3.5-5.0) g/dL Urine Color (Yellow) Urine Appearance (Clear) Urine pH (4.6-8.0) Ur Specific [place] (1.005-1.030) Urine Protein (Negative) Urine Glucose (UA) (Negative) mg/dL Urine Ketones (Negative) Urine Blood (Negative) Urine Nitrite (Negative) Urine Bilirubin (Negative) Urine Urobilinogen (0.2) mg/dL Ur Leukocyte Esterase (Negative) U Hyaline Cast (Auto) (0-2) /LPF Urine Microscopic RBC (0-5) /HPF Urine Microscopic WBC (0-5) /HPF Ur Epithelial Cells (None Seen) /HPF Urine Bacteria (None Seen) /HPF Urine Culture Reflexed (NO) Influenza Type A Ag (NEGATIVE) Influenza Type B Ag (NEGATIVE) RSV (PCR) (NEGATIVE) SARS-CoV-2 (PCR) (NEGATIVE) 06/08/23 06/08/23 Range/Units 17:45 19:53 WBC (4.0-10.5) x10^3/uL RBC (4.1-5.4) x10^6/uL Hgb (12.0-16.0) g/dL Hct (35-47) % MCV (78-100) fL MCH (26-32) pg MCHC (32-36) g/dL RDW (11.5-14.0) % Plt Count (150-450) x10^3/uL MPV (7.5-11.0) fL Gran % (36.0-66.0) % Immature Gran % (Auto) (0.00-0.4) % Nucleat RBC Rel Count (0.00-0.1) % Eos # (Auto) (0-0.5) x10^3/uL Immature Gran # (Auto) (0.00-0.03) x10^3u/L Absolute Lymphs (auto) (1.0-4.6) x10^3/uL Absolute Monos (auto) (0.0-1.3) x10^3/uL Absolute Nucleated RBC (0.00-0.01) x10^3u/L Lymphocytes % (24.0-44.0) % Monocytes % (0.0-12.0) % Eosinophils % (0.00-5.0) % Basophils % (0.0-0.4) % Absolute Granulocytes (1.4-6.9) x10^3/uL Basophils # (0-0.4) x10^3/uL Sodium (137-145) mmol/L Potassium (3.5-5.1) mmol/L Chloride (98-107) mmol/L Carbon Dioxide (22-30) mmol/L Anion Gap (5-15) MEQ/L BUN (7-17) mg/dL Creatinine (0.52-1.04) mg/dL Estimated GFR ML/MIN Glucose (74-106) mg/dL Lactic Acid (0.4-2.0) Calcium (8.4-10.2) mg/dL Total Bilirubin (0.2-1.3) mg/dL AST (14-36) U/L ALT (0-35) U/L Alkaline Phosphatase (38-126) U/L Serum Total Protein (6.3-8.2) g/dL Albumin (3.5-5.0) g/dL Urine Color Dark Yellow A (Yellow) Urine Appearance Cloudy A (Clear) Urine pH 5.5 (4.6-8.0) Ur Specific [place] 1.020 (1.005-1.030) Urine Protein 30 (Negative) Urine Glucose (UA) Negative (Negative) mg/dL Urine Ketones Trace A (Negative) Urine Blood Moderate A (Negative) Urine Nitrite Positive A (Negative) Urine Bilirubin Negative (Negative) Urine Urobilinogen 1.0 A (0.2) mg/dL Ur Leukocyte Esterase Moderate A (Negative) U Hyaline Cast (Auto) 3-5 A (0-2) /LPF Urine Microscopic RBC 6-10 A (0-5) /HPF Urine Microscopic WBC >100 A (0-5) /HPF Ur Epithelial Cells Rare (None Seen) /HPF Urine Bacteria Many A (None Seen) /HPF Urine Culture Reflexed YES (NO) Influenza Type A Ag NEGATIVE (NEGATIVE) Influenza Type B Ag NEGATIVE (NEGATIVE) RSV (PCR) NEGATIVE (NEGATIVE) SARS-CoV-2 (PCR) NEGATIVE (NEGATIVE) - Radiology Impressions Radiology Exams & Impressions: Radiology Procedures Category Date Time Status CHEST 1 VIEW (PORTABLE) Stat Exams 06/08/23 17:18 Taken HEAD WITHOUT CONTRAST [CT] Stat Exams 06/08/23 17:18 Taken Assessment/Plan (1) Acute cystitis Current Visit: Yes Status: Acute Assessment & Plan: 77 y/o F with h/o COPD, DM2, and HTN, here with sepsis due to acute cystitis. ## sepsis - due to acute cystitis, with malaise, leukocytosis, fever, and initially tachcyardia and hypotension. Improved after IV fluid bolus in ED. Not giving further boluses as lactate is 1. Pyuria on UA and dysuria by history, c/w acute cystitis. - continue Levaquin 500 mg IV daily (severe penicillin, sulfa allergy, but tolerated levaquin previously) - follow up urine cultures ## COPD - on her home 2L O2. No signs of exacerbation. Some very mild wheezing on exam. - PRN DuoNebs q4h - keep on home 2L O2 ## hypertension - initially mildly hypotensive, now running higher after IV fluids - resume home lisinopril 10 ## DM2 - diet-controlled at home - diabetic diet - low-dose SSI Code status: DNR Diet: Diabetic Prophylaxis: heparin q8h Code(s): N30.00 - ACUTE CYSTITIS WITHOUT HEMATURIA Telemedicine Encounter - Telemedicine Encounter Telemedicine Encounter: The entirety of this encounter was performed via Telemedicine"
--- NOTE | 2023-06-09 05:17 | PCM.NOTE ---
Date and Time: 06/09/23 0515 Subjective Assessment: HPI: 77 y/o F with h/o DM2, COPD on 2L O2, HTN, who presents with two days of progressive severe weakness, confusion, dysuria. She fell twice in the last two days, and has felt weak overall, with mild confusion. Family noted temperature of 100.4 and brought patient to ED. She remains on her home 2L oxygen. Notes no change in chronic dyspnea or cough. No nausea, flank pain, or diarrhea. 06/09: Met and examined patient bedside. Endorses fever/chills overnight. Denies dysuria/hematuria, and flank pain. States she does have back pain, but this is chronic. She is at her baseline oxygenation at 2L NC. Denies cough, sob, cp, abdominal pain, JAQUEZ, dizziness, N/V/D. - Review of Systems Constitutional: Fever, Chills, Fatigue, Weakness Eyes: No Symptoms Ears, Nose, & Throat: No Symptoms Respiratory: Cough (chronic clear sputum), Short Of Breath Cardiac: No Symptoms Abdominal/Gastrointestinal: No Symptoms Genitourinary Symptoms: No Symptoms Musculoskeletal: Back Pain Skin: No Symptoms Neurological: No Symptoms Psychological: No Symptoms Endocrine: No Symptoms Hematologic/Lymphatic: No Symptoms Objective Exam General Appearance: no apparent distress Neurologic Exam: alert, oriented x 3, cooperative Skin Exam: pale Eye Exam: PERRL Ears, Nose, Throat Exam: normal ENT inspection Neck Exam: normal inspection Respiratory Exam: crackles/rales Cardiovascular Exam: regular rate/rhythm, normal heart sounds Gastrointestinal/Abdomen Exam: soft, normal bowel sounds Extremity Exam: normal inspection Back Exam: normal inspection Pelvic Exam: deferred Rectal Exam: deferred OBJECTIVE DATA Vital Signs: Vital Signs - 24 hr Temp Pulse Resp BP BP Pulse Ox 06/09/23 04:00 100.4 F 84 24 153/65 99 06/08/23 23:35 72 18 99 06/08/23 22:11 99.8 F 74 26 H 150/65 96 06/08/23 22:06 99 06/08/23 21:30 98 06/08/23 21:02 132/58 100 06/08/23 20:30 67 20 93/48 98 06/08/23 19:30 71 18 122/75 97 06/08/23 19:28 69 20 118/33 96 06/08/23 19:00 73 20 118/45 97 06/08/23 18:31 70 20 97/56 98 06/08/23 18:30 92 H 20 100 06/08/23 18:20 73 20 100 06/08/23 18:10 86 24 99 06/08/23 18:04 97 06/08/23 17:33 95 06/08/23 17:00 72 23 134/57 98 06/08/23 16:48 99.7 F 77 23 133/53 95 Pain Assessment - Last Documented Pain Intensity 0 Intake and Output: Intake & Output 06/06/23 06/07/23 06/08/23 06/09/23 11:59 11:59 11:59 11:59 Output Total 150 Balance -150 Weight 63 kg Lab Results: Lab Results-Last 24 Hours 06/08/23 06/08/23 06/08/23 Range/Units 17:36 17:36 17:36 WBC 18.4 H (4.0-10.5) x10^3/uL RBC 3.88 L (4.1-5.4) x10^6/uL Hgb 11.2 L (12.0-16.0) g/dL Hct 35.4 (35-47) % MCV 91.2 (78-100) fL MCH 28.9 (26-32) pg MCHC 31.6 L (32-36) g/dL RDW 14.1 H (11.5-14.0) % Plt Count 152 (150-450) x10^3/uL MPV 9.7 (7.5-11.0) fL Gran % 85.3 H (36.0-66.0) % Immature Gran % (Auto) 1.2 H (0.00-0.4) % Nucleat RBC Rel Count 0.0 (0.00-0.1) % Eos # (Auto) 0 (0-0.5) x10^3/uL Immature Gran # (Auto) 0.22 H (0.00-0.03) x10^3u/L Absolute Lymphs (auto) 0.87 L (1.0-4.6) x10^3/uL Absolute Monos (auto) 1.58 H (0.0-1.3) x10^3/uL Absolute Nucleated RBC 0.00 (0.00-0.01) x10^3u/L Lymphocytes % 4.7 L (24.0-44.0) % Monocytes % 8.6 (0.0-12.0) % Eosinophils % 0.0 (0.00-5.0) % Basophils % 0.2 (0.0-0.4) % Absolute Granulocytes 15.66 H (1.4-6.9) x10^3/uL Basophils # 0.03 (0-0.4) x10^3/uL Sodium 136 L (137-145) mmol/L Potassium 3.8 (3.5-5.1) mmol/L Chloride 98 (98-107) mmol/L Carbon Dioxide 34 H (22-30) mmol/L Anion Gap 7.2 (5-15) MEQ/L BUN 19 H (7-17) mg/dL Creatinine 0.55 (0.52-1.04) mg/dL Estimated GFR 93.2 ML/MIN Glucose 153 H (74-106) mg/dL Lactic Acid 1.0 (0.4-2.0) Calcium 9.4 (8.4-10.2) mg/dL Total Bilirubin 1.20 (0.2-1.3) mg/dL AST 24 (14-36) U/L ALT 15 (0-35) U/L Alkaline Phosphatase 75 (38-126) U/L Serum Total Protein 6.3 (6.3-8.2) g/dL Albumin 3.5 (3.5-5.0) g/dL Urine Color (Yellow) Urine Appearance (Clear) Urine pH (4.6-8.0) Ur Specific [place] (1.005-1.030) Urine Protein (Negative) Urine Glucose (UA) (Negative) mg/dL Urine Ketones (Negative) Urine Blood (Negative) Urine Nitrite (Negative) Urine Bilirubin (Negative) Urine Urobilinogen (0.2) mg/dL Ur Leukocyte Esterase (Negative) U Hyaline Cast (Auto) (0-2) /LPF Urine Microscopic RBC (0-5) /HPF Urine Microscopic WBC (0-5) /HPF Ur Epithelial Cells (None Seen) /HPF Urine Bacteria (None Seen) /HPF Urine Culture Reflexed (NO) Influenza Type A Ag (NEGATIVE) Influenza Type B Ag (NEGATIVE) RSV (PCR) (NEGATIVE) SARS-CoV-2 (PCR) (NEGATIVE) 06/08/23 06/08/23 Range/Units 17:45 19:53 WBC (4.0-10.5) x10^3/uL RBC (4.1-5.4) x10^6/uL Hgb (12.0-16.0) g/dL Hct (35-47) % MCV (78-100) fL MCH (26-32) pg MCHC (32-36) g/dL RDW (11.5-14.0) % Plt Count (150-450) x10^3/uL MPV (7.5-11.0) fL Gran % (36.0-66.0) % Immature Gran % (Auto) (0.00-0.4) % Nucleat RBC Rel Count (0.00-0.1) % Eos # (Auto) (0-0.5) x10^3/uL Immature Gran # (Auto) (0.00-0.03) x10^3u/L Absolute Lymphs (auto) (1.0-4.6) x10^3/uL Absolute Monos (auto) (0.0-1.3) x10^3/uL Absolute Nucleated RBC (0.00-0.01) x10^3u/L Lymphocytes % (24.0-44.0) % Monocytes % (0.0-12.0) % Eosinophils % (0.00-5.0) % Basophils % (0.0-0.4) % Absolute Granulocytes (1.4-6.9) x10^3/uL Basophils # (0-0.4) x10^3/uL Sodium (137-145) mmol/L Potassium (3.5-5.1) mmol/L Chloride (98-107) mmol/L Carbon Dioxide (22-30) mmol/L Anion Gap (5-15) MEQ/L BUN (7-17) mg/dL Creatinine (0.52-1.04) mg/dL Estimated GFR ML/MIN Glucose (74-106) mg/dL Lactic Acid (0.4-2.0) Calcium (8.4-10.2) mg/dL Total Bilirubin (0.2-1.3) mg/dL AST (14-36) U/L ALT (0-35) U/L Alkaline Phosphatase (38-126) U/L Serum Total Protein (6.3-8.2) g/dL Albumin (3.5-5.0) g/dL Urine Color Dark Yellow A (Yellow) Urine Appearance Cloudy A (Clear) Urine pH 5.5 (4.6-8.0) Ur Specific [place] 1.020 (1.005-1.030) Urine Protein 30 (Negative) Urine Glucose (UA) Negative (Negative) mg/dL Urine Ketones Trace A (Negative) Urine Blood Moderate A (Negative) Urine Nitrite Positive A (Negative) Urine Bilirubin Negative (Negative) Urine Urobilinogen 1.0 A (0.2) mg/dL Ur Leukocyte Esterase Moderate A (Negative) U Hyaline Cast (Auto) 3-5 A (0-2) /LPF Urine Microscopic RBC 6-10 A (0-5) /HPF Urine Microscopic WBC >100 A (0-5) /HPF Ur Epithelial Cells Rare (None Seen) /HPF Urine Bacteria Many A (None Seen) /HPF Urine Culture Reflexed YES (NO) Influenza Type A Ag NEGATIVE (NEGATIVE) Influenza Type B Ag NEGATIVE (NEGATIVE) RSV (PCR) NEGATIVE (NEGATIVE) SARS-CoV-2 (PCR) NEGATIVE (NEGATIVE) Radiology Exams: Radiology Procedures Category Date Time Status CHEST 1 VIEW (PORTABLE) Stat Exams 06/08/23 17:18 Taken HEAD WITHOUT CONTRAST [CT] Stat Exams 06/08/23 17:18 Taken Assessment/Plan (1) Sepsis Current Visit: Yes Status: Acute Assessment & Plan: 77 y/o F with h/o COPD, DM2, and HTN, here with sepsis due to acute cystitis. ## sepsis - due to acute cystitis, with malaise, leukocytosis, fever, and initially tachcyardia and hypotension. Improved after IV fluid bolus in ED. Not giving further boluses as lactate is 1. Pyuria on UA and dysuria by history, c/w acute cystitis. - continue Levaquin 500 mg IV daily (severe penicillin, sulfa allergy, but tolerated levaquin previously) - follow up urine cultures 06/09: -Continue levaquin, patient is tolerating, will follow culture (2) Leukocytosis Current Visit: Yes Status: Acute Assessment & Plan: -Most likely secondary to UTI, will treat underlying cause with levaquin, Bcult and ucult pending, will follow cultures Code(s): D72.829 - ELEVATED WHITE BLOOD CELL COUNT, UNSPECIFIED (3) COPD (chronic obstructive pulmonary disease) Current Visit: Yes Status: Acute Assessment & Plan: ## COPD - on her home 2L O2. No signs of exacerbation. Some very mild wheezing on exam. - PRN DuoNebs q4h - keep on home 2L O2 (4) Acute cystitis Current Visit: Yes Status: Acute Assessment & Plan: -Ucult pending, patient with multiple allergies, will continue levaquin for now, follow culture Code(s): N30.00 - ACUTE CYSTITIS WITHOUT HEMATURIA (5) Type 2 diabetes mellitus Current Visit: No Status: Chronic Qualifiers: Assessment & Plan: DM2 - diet-controlled at home - diabetic diet - low-dose SSI (6) HTN (hypertension) Current Visit: Yes Status: Acute Assessment & Plan: ## hypertension - initially mildly hypotensive, now running higher after IV fluids - resume home lisinopril 10 Code status: DNR Diet: Diabetic Prophylaxis: heparin q8h Code(s): I10 - ESSENTIAL (PRIMARY) HYPERTENSION
[2023-06-09 05:20] LABS: Hemoglobin 10.8 g/dL (12.0-16.0); Mean Cell Volume 90.7 fL (78-100); Mean Corpuscular Hgb Concent. 30.9 g/dL (32-36); Mean Platelet Volume 10.2 fL (7.5-11.0); Platelet Count 152 x10^3/uL (150-450); Red Blood Count 3.86 x10^6/uL (4.1-5.4)
[2023-06-09 05:35] LABS: ANION GAP 4.1 MEQ/L (5-15); Calcium 8.9 mg/dL (8.4-10.2); Creatinine 1 0.62 mg/dL (0.52-1.04); EST GLOMERULAR FILTRATION RATE 90.5 ML/MIN; Potassium 3.5 mmol/L (3.5-5.1)
[2023-06-09] MEDS ORDERED: MEDICATION INTERVENTION MC SCH (07:30)
--- NOTE | 2023-06-09 08:37 | XRAY ---
Indication: Weakness and fever. Status post fall with head injury. Multiple contiguous axial images obtained through the head without contrast. Comparison: October 12, 2022 Again age-appropriate global atrophy, mild periventricular degenerative micro-ischemia bilaterally, and remote lacunar infarcts right basal ganglia. No acute intracranial hemorrhage, abnormal extra-axial fluid collection, or mass effect. Fourth ventricle is midline without hydrocephalus. Bony calvarium intact again with hyperostosis frontalis interna. Visualized paranasal sinuses and mastoid air cells are clear. Impression: Continued nonacute senile brain with remote lacunar infarcts right basal ganglia.
--- NOTE | 2023-06-09 08:51 | XRAY ---
Indication: Fever, weakness, and short of breath. Comparison: November 16, 2022 Portable chest again demonstrates COPD, focal eventration right hemidiaphragm with adjacent atelectasis, and a few hilar calcified granulomas. Remaining heart and lungs unremarkable. Bony thorax intact again with osteopenia and mild degenerative changes. Impression: Continued nonacute chest with chronic features.
[2023-06-09] MEDS: ceLEXa 20 MG PO SCH (09:17)
[2023-06-09] MEDS: Protonix 40MG Tablet PO SCH (09:18)
[2023-06-09] MEDS: Zestril 10 MG PO SCH (09:18)
[2023-06-09] MEDS: NEURONTIN PO SCH ×3 (09:18→22:22)
[2023-06-09] MEDS: ZOCOR 20MG PO SCH (09:19)
[2023-06-09] MEDS: ECOTRIN 81 MG PO SCH (09:24)
[2023-06-09] MEDS ORDERED: NON-FORMULARY ITEM (Theophylline Anhydrous [Theophylline Er] 300 MG Tab.Er.12h) PO SCH (10:00)
[2023-06-09] MEDS ORDERED: NON-FORMULARY ITEM (Atorvastatin Calcium [Lipitor] 80 MG Tablet) PO SCH (10:00)
[2023-06-09] MEDS ORDERED: NON-FORMULARY ITEM (Omeprazole [Omeprazole] 20 MG Capsule.Dr) PO SCH (10:00)
[2023-06-09] MEDS: TYLENOL 325 MG PO PRN (20:23)
[2023-06-09] MEDS ORDERED: Levofloxacin 500MG/100ML D5W 500 MG/100 ML BAG IV SCH (22:00)
[2023-06-09] MEDS: Levaquin 250MG/50ML D5W 250 MG/50 ML BAG IV SCH (22:20)
[2023-06-09] MEDS: PATIENT OWN MEDICATION PO SCH (22:22)
--- NOTE | 2023-06-10 05:26 | PCM.NOTE ---
Date and Time: 06/10/23 0525 Subjective Assessment: HPI: 77 y/o F with h/o DM2, COPD on 2L O2, HTN, who presents with two days of progressive severe weakness, confusion, dysuria. She fell twice in the last two days, and has felt weak overall, with mild confusion. Family noted temperature of 100.4 and brought patient to ED. She remains on her home 2L oxygen. Notes no change in chronic dyspnea or cough. No nausea, flank pain, or diarrhea. 06/09: Met and examined patient bedside. Endorses fever/chills overnight. Denies dysuria/hematuria, and flank pain. States she does have back pain, but this is chronic. She is at her baseline oxygenation at 2L NC. Denies cough, sob, cp, abdominal pain, JAQUEZ, dizziness, N/V/D. 06/10: Patient feeling much improved this morning. More alert. Endorses continued cough with clear sputum. Denies hematura/dysuria, or flank pain. She has had several episodes of watery diarrhea this morning. This may be secondary to antibioti cs/illness. Will obtain stool studies. Denies fever,cp, abdominal pain, JAQUEZ, dizziness, N/V. - Review of Systems Constitutional: No Symptoms Eyes: No Symptoms Ears, Nose, & Throat: No Symptoms Respiratory: Cough, Short Of Breath Cardiac: No Symptoms Abdominal/Gastrointestinal: Diarrhea Genitourinary Symptoms: No Symptoms Musculoskeletal: Back Pain Skin: No Symptoms Neurological: No Symptoms Psychological: No Symptoms Endocrine: No Symptoms Hematologic/Lymphatic: No Symptoms Immunological/Allergic: No Symptoms Objective Exam General Appearance: no apparent distress Neurologic Exam: alert, oriented x 3, cooperative Skin Exam: pale Wound Assessment: Skin/Wound Assessment Wound/Incision Assessment Start: 06/09/23 10:39 Text: Status: Active Freq: Q6H Protocol: Document 06/10/23 04:00 LB (Rec: 06/10/23 04:51 LB [id number]) Wound/Incision Assessment Posterior Sacrum Wound Assessment Shift Assessment Wound Type Pressure Ulcer Drainage Amount None General Appearance Open to air,Clean/Dry,Reddened Surrounding Tissue [place] Comment barrier cream applied; PT to evaluate Wound Photo Photo Taken No Eye Exam: PERRL Ears, Nose, Throat Exam: dry mucous membranes Neck Exam: normal inspection Respiratory Exam: crackles/rales Cardiovascular Exam: regular rate/rhythm, normal heart sounds Gastrointestinal/Abdomen Exam: soft, normal bowel sounds Extremity Exam: normal inspection Back Exam: normal inspection Pelvic Exam: deferred OBJECTIVE DATA Vital Signs: Vital Signs - 24 hr Temp Pulse Resp BP Pulse Ox 06/10/23 04:51 98.8 F 73 20 150/69 99 06/10/23 00:36 97.3 F 74 20 137/60 97 06/09/23 21:27 99.9 F 06/09/23 20:00 101.8 F 77 18 148/66 97 06/09/23 19:10 81 20 98 06/09/23 16:00 97.6 F 73 21 125/59 96 06/09/23 11:32 97.8 F 77 20 136/62 98 06/09/23 07:13 97.7 F 87 16 141/63 106 H 06/09/23 06:56 85 20 94 L Pain Assessment - Last Documented Pain Intensity 0 Intake and Output: Intake & Output 06/07/23 06/08/23 06/09/23 06/10/23 11:59 11:59 11:59 11:59 Intake Total 120 760 Output Total 250 500 Balance -130 260 Weight 63 kg Lab Results: Lab Results-Last 24 Hours 06/09/23 06/09/23 06/09/23 Range/Units 04:30 07:24 11:36 Sodium 135 L (137-145) mmol/L Potassium 3.5 (3.5-5.1) mmol/L Chloride 99 (98-107) mmol/L Carbon Dioxide 35 H (22-30) mmol/L Anion Gap 4.1 L (5-15) MEQ/L BUN 19 H (7-17) mg/dL Creatinine 0.62 (0.52-1.04) mg/dL Estimated GFR 90.5 ML/MIN Glucose 109 H (74-106) mg/dL POC Glucometer 114 H 122 H (74 to 106) mg/dL Calcium 8.9 (8.4-10.2) mg/dL 06/09/23 06/09/23 Range/Units 16:13 21:41 Sodium (137-145) mmol/L Potassium (3.5-5.1) mmol/L Chloride (98-107) mmol/L Carbon Dioxide (22-30) mmol/L Anion Gap (5-15) MEQ/L BUN (7-17) mg/dL Creatinine (0.52-1.04) mg/dL Estimated GFR ML/MIN Glucose (74-106) mg/dL POC Glucometer 100 108 H (74 to 106) mg/dL Calcium (8.4-10.2) mg/dL Radiology Exams: Radiology Procedures Category Date Time Status CHEST 1 VIEW (PORTABLE) Stat Exams 06/08/23 17:18 Completed HEAD WITHOUT CONTRAST [CT] Stat Exams 06/08/23 17:18 Completed Assessment/Plan (1) Sepsis Current Visit: Yes Status: Acute Assessment & Plan: (1) Sepsis Current Visit: Yes Status: Acute Assessment & Plan: 77 y/o F with h/o COPD, DM2, and HTN, here with sepsis due to acute cystitis. ## sepsis - due to acute cystitis, with malaise, leukocytosis, fever, and initially tachcyardia and hypotension. Improved after IV fluid bolus in ED. Not giving further boluses as lactate is 1. Pyuria on UA and dysuria by history, c/w acute cystitis. - continue Levaquin 500 mg IV daily (severe penicillin, sulfa allergy, but tolerated levaquin previously) - follow up urine cultures 06/09: -Continue levaquin, patient is tolerating, will follow culture (2) Leukocytosis Current Visit: Yes Status: Acute Assessment & Plan: -Most likely secondary to UTI, will treat underlying cause with levaquin, Bcult and ucult pending, will follow cultures 06/10: -WBC trend improving 15.4<18<18.4 will continue current abx, follow cultures Code(s): D72.829 - ELEVATED WHITE BLOOD CELL COUNT, UNSPECIFIED (3) COPD (chronic obstructive pulmonary disease) Current Visit: Yes Status: Acute Assessment & Plan: ## COPD - on her home 2L O2. No signs of exacerbation. Some very mild wheezing on exam. - PRN DuoNebs q4h - keep on home 2L O2 (4) Acute cystitis Current Visit: Yes Status: Acute Assessment & Plan: -Ucult pending, patient with multiple allergies, will continue levaquin for now, follow culture 06/10: -Ucult growing gram - organism, will continue levaquin for now until sensitivity complete Code(s): N30.00 - ACUTE CYSTITIS WITHOUT HEMATURIA (5) Type 2 diabetes mellitus Current Visit: No Status: Chronic Qualifiers: Assessment & Plan: DM2 - diet-controlled at home - diabetic diet - low-dose SSI (6) HTN (hypertension) Current Visit: Yes Status: Acute Assessment & Plan: ## hypertension - initially mildly hypotensive, now running higher after IV fluids - resume home lisinopril 10 ##Hypokalemia -Potassium low at 3.0 this morning, will replenish per potassium protocol Code status: DNR Diet: Diabetic Prophylaxis: heparin q8h (2) Leukocytosis Current Visit: Yes Status: Acute Code(s): D72.829 - ELEVATED WHITE BLOOD CELL COUNT, UNSPECIFIED (3) COPD (chronic obstructive pulmonary disease) Current Visit: Yes Status: Acute (4) Acute cystitis Current Visit: Yes Status: Acute Code(s): N30.00 - ACUTE CYSTITIS WITHOUT HEMATURIA (5) Type 2 diabetes mellitus Current Visit: No Status: Chronic Qualifiers: (6) HTN (hypertension) Current Visit: Yes Status: Acute Code(s): I10 - ESSENTIAL (PRIMARY) HYPERTENSION (7) Hypokalemia Current Visit: Yes Status: Acute Code(s): E87.6 - HYPOKALEMIA
[2023-06-10 08:06] LABS: Hematocrit 33.5 % (35-47); Hemoglobin 10.5 g/dL (12.0-16.0); Mean Cell Volume 90.1 fL (78-100); Mean Corpuscular Hemoglobin 28.2 pg (26-32); Mean Corpuscular Hgb Concent. 31.3 g/dL (32-36); Mean Platelet Volume 10.4 fL (7.5-11.0); Platelet Count 168 x10^3/uL (150-450); Red Blood Count 3.72 x10^6/uL (4.1-5.4); Red Cell Distribution Width 13.6 % (11.5-14.0); White Blood Count 15.4 x10^3/uL (4.0-10.5)
[2023-06-10 08:18] LABS: ALBUMIN 2.7 g/dL (3.5-5.0); ANION GAP 9.2 MEQ/L (5-15); Calcium 8.9 mg/dL (8.4-10.2); Creatinine 1 0.71 mg/dL (0.52-1.04); EST GLOMERULAR FILTRATION RATE 86.4 ML/MIN; MAGNESIUM 1.6 mg/dL (1.6-2.3); Total Protein 5.2 g/dL (6.3-8.2)
[2023-06-10] MEDS: Klor Con PO SCH ×4 (10:20→18:17)
[2023-06-10] MEDS: ceLEXa 20 MG PO SCH (10:21)
[2023-06-10] MEDS: PATIENT OWN MEDICATION PO SCH ×3 (10:21→22:48)
[2023-06-10] MEDS: ZOCOR 20MG PO SCH (10:21)
[2023-06-10] MEDS: ECOTRIN 81 MG PO SCH (10:22)
[2023-06-10] MEDS: NEURONTIN PO SCH ×3 (10:22→22:48)
[2023-06-10] MEDS: Protonix 40MG Tablet PO SCH (10:22)
[2023-06-10] MEDS: Zestril 10 MG PO SCH (10:22)
[2023-06-10 14:55] LABS: 027 TOX PROD PRESUMPTIVE NEGATIVE (NEGATIVE); TOXIGENIC C. DIFF ORG NEGATIVE (NEGATIVE)
[2023-06-10] MEDS ORDERED: Klor Con PO ONE (18:11)
[2023-06-10] MEDS: Levaquin 250MG/50ML D5W 250 MG/50 ML BAG IV SCH (22:40)
[2023-06-11] MEDS: TYLENOL 325 MG PO PRN (00:13)
[2023-06-11 04:47] LABS: Hematocrit 33.7 % (35-47); Hemoglobin 10.7 g/dL (12.0-16.0); Mean Cell Volume 89.4 fL (78-100); Mean Corpuscular Hemoglobin 28.4 pg (26-32); Mean Corpuscular Hgb Concent. 31.8 g/dL (32-36); Mean Platelet Volume 9.6 fL (7.5-11.0); Platelet Count 185 x10^3/uL (150-450); Red Blood Count 3.77 x10^6/uL (4.1-5.4); Red Cell Distribution Width 13.5 % (11.5-14.0); White Blood Count 10.7 x10^3/uL (4.0-10.5)
[2023-06-11 05:07] LABS: ANION GAP 10.1 MEQ/L (5-15); BILIRUBIN,TOTAL 0.9 mg/dL (0.2-1.3); Creatinine 1 0.65 mg/dL (0.52-1.04); EST GLOMERULAR FILTRATION RATE 89.5 ML/MIN; MAGNESIUM 1.7 mg/dL (1.6-2.3); Total Protein 5.8 g/dL (6.3-8.2)
--- NOTE | 2023-06-11 05:37 | PCM.NOTE ---
Date and Time: 06/11/23 0536 Subjective Assessment: HPI: 77 y/o F with h/o DM2, COPD on 2L O2, HTN, who presents with two days of progressive severe weakness, confusion, dysuria. She fell twice in the last two days, and has felt weak overall, with mild confusion. Family noted temperature of 100.4 and brought patient to ED. She remains on her home 2L oxygen. Notes no change in chronic dyspnea or cough. No nausea, flank pain, or diarrhea. 06/09: Met and examined patient bedside. Endorses fever/chills overnight. Denies dysuria/hematuria, and flank pain. States she does have back pain, but this is chronic. She is at her baseline oxygenation at 2L NC. Denies cough, sob, cp, abdominal pain, JAQUEZ, dizziness, N/V/D. 06/10: Patient feeling much improved this morning. More alert. Endorses continued cough with clear sputum. Denies hematura/dysuria, or flank pain. She has had several episodes of watery diarrhea this morning. This may be secondary to antibioti cs/illness. Will obtain stool studies. Denies fever,cp, abdominal pain, JAQUEZ, dizziness, N/V. Objective Exam Wound Assessment: Skin/Wound Assessment Wound/Incision Assessment Start: 06/09/23 10:39 Text: Status: Active Freq: Q6H Protocol: Document 06/11/23 04:00 LB (Rec: 06/11/23 04:16 LB [id number]) Wound/Incision Assessment Posterior Sacrum Wound Assessment Shift Assessment Wound Type Pressure Ulcer Drainage Amount None General Appearance Open to air,Clean/Dry,Reddened Surrounding Tissue [place] Comment barrier cream applied Wound Photo Photo Taken No OBJECTIVE DATA Vital Signs: Vital Signs - 24 hr Temp Pulse Resp BP Pulse Ox 06/11/23 04:00 99.0 F 71 17 142/65 98 06/11/23 00:00 99.6 F 74 17 110/63 98 06/10/23 20:50 88 20 95 06/10/23 19:40 98.7 F 73 18 122/59 97 06/10/23 16:53 97.7 F 63 17 109/68 97 06/10/23 13:00 97.8 F 71 17 143/62 97 06/10/23 09:00 98.4 F 71 18 129/60 89 L 06/10/23 07:20 74 20 99 Pain Assessment - Last Documented Pain Intensity 0 Pain Scale [facility] Intake and Output: Intake & Output 06/08/23 06/09/23 06/10/23 06/11/23 11:59 11:59 11:59 11:59 Intake Total 120 1480 920 Output Total 250 2000 1200 Balance -130 -520 -280 Weight 63 kg Lab Results: Lab Results-Last 24 Hours 06/10/23 06/10/23 06/10/23 Range/Units 07:00 07:23 07:23 WBC 15.4 H (4.0-10.5) x10^3/uL RBC 3.72 L (4.1-5.4) x10^6/uL Hgb 10.5 L (12.0-16.0) g/dL Hct 33.5 L (35-47) % MCV 90.1 (78-100) fL MCH 28.2 (26-32) pg MCHC 31.3 L (32-36) g/dL RDW 13.6 (11.5-14.0) % Plt Count 168 (150-450) x10^3/uL MPV 10.4 (7.5-11.0) fL Sodium 138 (137-145) mmol/L Potassium 3.0 L* (3.5-5.1) mmol/L Chloride 100 (98-107) mmol/L Carbon Dioxide 32 H (22-30) mmol/L Anion Gap 9.2 (5-15) MEQ/L BUN 19 H (7-17) mg/dL Creatinine 0.71 (0.52-1.04) mg/dL Estimated GFR 86.4 ML/MIN Glucose 100 (74-106) mg/dL POC Glucometer 99 (74 to 106) mg/dL Calcium 8.9 (8.4-10.2) mg/dL Magnesium 1.6 (1.6-2.3) mg/dL Total Bilirubin 1.00 (0.2-1.3) mg/dL AST 25 (14-36) U/L ALT 16 (0-35) U/L Alkaline Phosphatase 64 (38-126) U/L Serum Total Protein 5.2 L (6.3-8.2) g/dL Albumin 2.7 L (3.5-5.0) g/dL C. difficile Screen (NEGATIVE) C.difficile 027-NAP1-B1 (NEGATIVE) 06/10/23 06/10/23 06/10/23 Range/Units 09:15 10:50 11:12 WBC (4.0-10.5) x10^3/uL RBC (4.1-5.4) x10^6/uL Hgb (12.0-16.0) g/dL Hct (35-47) % MCV (78-100) fL MCH (26-32) pg MCHC (32-36) g/dL RDW (11.5-14.0) % Plt Count (150-450) x10^3/uL MPV (7.5-11.0) fL Sodium (137-145) mmol/L Potassium 2.9 L* (3.5-5.1) mmol/L Chloride (98-107) mmol/L Carbon Dioxide (22-30) mmol/L Anion Gap (5-15) MEQ/L BUN (7-17) mg/dL Creatinine (0.52-1.04) mg/dL Estimated GFR ML/MIN Glucose (74-106) mg/dL POC Glucometer 159 H (74 to 106) mg/dL Calcium (8.4-10.2) mg/dL Magnesium (1.6-2.3) mg/dL Total Bilirubin (0.2-1.3) mg/dL AST (14-36) U/L ALT (0-35) U/L Alkaline Phosphatase (38-126) U/L Serum Total Protein (6.3-8.2) g/dL Albumin (3.5-5.0) g/dL C. difficile Screen NEGATIVE (NEGATIVE) C.difficile 027-NAP1-B1 PRESUMPTIVE NEGATIVE (NEGATIVE) 06/10/23 06/10/23 06/10/23 Range/Units 13:05 16:45 18:15 WBC (4.0-10.5) x10^3/uL RBC (4.1-5.4) x10^6/uL Hgb (12.0-16.0) g/dL Hct (35-47) % MCV (78-100) fL MCH (26-32) pg MCHC (32-36) g/dL RDW (11.5-14.0) % Plt Count (150-450) x10^3/uL MPV (7.5-11.0) fL Sodium (137-145) mmol/L Potassium 3.0 L* 3.4 L (3.5-5.1) mmol/L Chloride (98-107) mmol/L Carbon Dioxide (22-30) mmol/L Anion Gap (5-15) MEQ/L BUN (7-17) mg/dL Creatinine (0.52-1.04) mg/dL Estimated GFR ML/MIN Glucose (74-106) mg/dL POC Glucometer 95 (74 to 106) mg/dL Calcium (8.4-10.2) mg/dL Magnesium (1.6-2.3) mg/dL Total Bilirubin (0.2-1.3) mg/dL AST (14-36) U/L ALT (0-35) U/L Alkaline Phosphatase (38-126) U/L Serum Total Protein (6.3-8.2) g/dL Albumin (3.5-5.0) g/dL C. difficile Screen (NEGATIVE) C.difficile 027-NAP1-B1 (NEGATIVE) 06/10/23 06/11/23 06/11/23 Range/Units 21:14 04:42 04:42 WBC 10.7 H (4.0-10.5) x10^3/uL RBC 3.77 L (4.1-5.4) x10^6/uL Hgb 10.7 L (12.0-16.0) g/dL Hct 33.7 L (35-47) % MCV 89.4 (78-100) fL MCH 28.4 (26-32) pg MCHC 31.8 L (32-36) g/dL RDW 13.5 (11.5-14.0) % Plt Count 185 (150-450) x10^3/uL MPV 9.6 (7.5-11.0) fL Sodium 137 (137-145) mmol/L Potassium 4.0 (3.5-5.1) mmol/L Chloride 102 (98-107) mmol/L Carbon Dioxide 29 (22-30) mmol/L Anion Gap 10.1 (5-15) MEQ/L BUN 19 H (7-17) mg/dL Creatinine 0.65 (0.52-1.04) mg/dL Estimated GFR 89.5 ML/MIN Glucose 107 H (74-106) mg/dL POC Glucometer 121 H (74 to 106) mg/dL Calcium 9.0 (8.4-10.2) mg/dL Magnesium 1.7 (1.6-2.3) mg/dL Total Bilirubin 0.90 (0.2-1.3) mg/dL AST 41 H (14-36) U/L ALT 21 (0-35) U/L Alkaline Phosphatase 64 (38-126) U/L Serum Total Protein 5.8 L (6.3-8.2) g/dL Albumin 3.0 L (3.5-5.0) g/dL C. difficile Screen (NEGATIVE) C.difficile 027-NAP1-B1 (NEGATIVE) Multi-Disciplinary Progress Notes: Multi-Disciplinary Progress Notes 06/10/23 16:59 OT Plan of Care Note by Gina Cummins OT Eval OT Inpatient Eval and POC Start: 06/10/23 11:01 Freq: ONCE Status: Complete Protocol: Created 06/10/23 11:02 ED (Rec: 06/10/23 11:02 ED [id number]) Document 06/10/23 16:20 KA (Rec: 06/10/23 16:57 KA [id number]) OT Evaluation Subjective Kiana reports increased fatigue this date due to frequent watery stools. She agrees to participate in therapy session. 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 Equipment at Home Prior to Admission Walker,Shower Chair Home Setup [id number] Document 06/10/23 16:39 KA (Rec: 06/10/23 16:57 KA [id number]) OT Evaluation Date 06/10/23 Feeding WFL Grooming Impaired Comment Min assist (set up) Bathing Impaired Comment Max assist Dressing Impaired Comment UB: MIn assist LB: Mod Assist Toileting Impaired Comment Mod assist IADLS (If indicated) Homemaking,etc Impaired Bed Mobility Impaired Comment MIn assist Toilet Transfers Impaired Comment Min assist Functional Transfers Impaired Comment CGA/Min assist with use of FWW Range of Motion Impaired Coordination Not assessed this date Functional Strength MMT Right UE: 4-/5 Left UE: 4-/5 poor left firing pin gauger strength; old wrist fracture and mild flexor contracture noted Functional Endurance Poor (-); tolerates approximately 1 minute of static standing Cognition alert and oriented to name, date, and location Pain chronic back pain Objective Data/Standardized Assessment(s 6 clicks- Basic Mobility ) Inaptient Short Form: - 70% impairment Willett Index of [place] in ADLs: 0/6- highly dependent for ADLS Comment Patient is primarly limited in ADLS due to overal weakness and poor activity tolerance. She reports that her health/ energy levels had been declining over the past 2 weeks. Additionally, she reports a bed sore on her sacral region. OT Plan Of Care Date of Evaluation 06/10/23 Treatment Diagnosis weakness, falls, malaise Precaution/Orders as written eval and treat Teaching Recipient Patient Patient is Aware of Diagnosis and Yes Prognosis Patient is receptive to Plan of Care and Yes contributory towards OT goals Functional Problem List Kiana presents with generalized weakness, poor activity tolerance, and poor safety insight limiting independence with ADLS and quality of life. Therapuetic Interventions ADLS, Therapeutic activity, Therapeutic exercise, functional transfers Functional Goals of Treatment 1.) Patient will complete functional transfers with SBA and use of FWW within 1 week to improve safety insight and reduce caregiver burden. 2) Patient will participate in 15 minute ADLs with 2 rest breaks to faciliate independence and activity tolerance required for safe return home (within 1 week). 3) Patient will increase BUE strength to 4+/5 MMT within 1 week to improve independence with managing walker and ADL tasks. Frequency/Duration 5x/week Rehabilitation Potential for Goals/ Good Barriers to Progress Discharge Recommendations/Plan Patient may benefit from further skilled therapy at discharge due to sedentary lifestyle and weakness x 2 weeks prior to hospital admission with pressure sore on sacral region; recommend SNF vs home with HHT pending patient progress. Initialized on 06/10/23 16:59 - END OF NOTE 06/10/23 10:09 Case Management Note by Yasemin Jane S/W PATIENT- SHE CONTINUES TO DECLINE A REHAB STAY. SHE WOULD LIKE TO TALK WITH HER DAUGHTER ABOUT [facility] BEFORE DECIDING. WILL CHECK IN AGAIN WITH PATIENT TOMORROW Initialized on 06/10/23 10:09 - END OF NOTE Assessment/Plan (1) Sepsis Current Visit: Yes Status: Acute Assessment & Plan: 77 y/o F with h/o COPD, DM2, and HTN, here with sepsis due to acute cystitis. ## sepsis - due to acute cystitis, with malaise, leukocytosis, fever, and initially tachcyardia and hypotension. Improved after IV fluid bolus in ED. Not giving further boluses as lactate is 1. Pyuria on UA and dysuria by history, c/w acute cystitis. - continue Levaquin 500 mg IV daily (severe penicillin, sulfa allergy, but tolerated levaquin previously) - follow up urine cultures 06/09: -Continue levaquin, patient is tolerating, will follow culture (2) Leukocytosis Current Visit: Yes Status: Acute Assessment & Plan: -Most likely secondary to UTI, will treat underlying cause with levaquin, Bcult and ucult pending, will follow cultures 06/10: -WBC trend improving 15.4<18<18.4 will continue current abx, follow cultures Code(s): D72.829 - ELEVATED WHITE BLOOD CELL COUNT, UNSPECIFIED (3) COPD (chronic obstructive pulmonary disease) Current Visit: Yes Status: Acute Assessment & Plan: ## COPD - on her home 2L O2. No signs of exacerbation. Some very mild wheezing on exam. - PRN DuoNebs q4h - keep on home 2L O2 (4) Acute cystitis Current Visit: Yes Status: Acute Assessment & Plan: -Ucult pending, patient with multiple allergies, will continue levaquin for now, follow culture 06/10: -Ucult growing gram - organism, will continue levaquin for now until sensitivity complete Code(s): N30.00 - ACUTE CYSTITIS WITHOUT HEMATURIA (5) Type 2 diabetes mellitus Current Visit: No Status: Chronic Qualifiers: Assessment & Plan: DM2 - diet-controlled at home - diabetic diet - low-dose SSI (6) HTN (hypertension) Current Visit: Yes Status: Acute Assessment & Plan: ## hypertension - initially mildly hypotensive, now running higher after IV fluids - resume home lisinopril 10 ##Hypokalemia -Potassium low at 3.0 this morning, will replenish per potassium protocol Code status: DNR Diet: Diabetic Prophylaxis: heparin q8h (2) Leukocytosis Current Visit: Yes Status: Acute Code(s): D72.829 - ELEVATED WHITE BLOOD CELL COUNT, UNSPECIFIED (3) COPD (chronic obstructive pulmonary disease) Current Visit: Yes Status: Acute (4) Acute cystitis Current Visit: Yes Status: Acute Code(s): N30.00 - ACUTE CYSTITIS WITHOUT HEMATURIA (5) Type 2 diabetes mellitus Current Visit: No Status: Chronic Qualifiers: (6) HTN (hypertension) Current Visit: Yes Status: Acute Code(s): I10 - ESSENTIAL (PRIMARY) HYPERTENSION (7) Hypokalemia Current Visit: Yes Status: Acute Code(s): E87.6 - HYPOKALEMIA
[2023-06-11 06:57] VITALS: RESP 18
[2023-06-11] MEDS: ceLEXa 20 MG PO SCH (09:57)
[2023-06-11] MEDS: Protonix 40MG Tablet PO SCH (09:57)
[2023-06-11] MEDS: ECOTRIN 81 MG PO SCH (09:58)
[2023-06-11] MEDS: NEURONTIN PO SCH ×2 (09:58→14:59)
[2023-06-11] MEDS: Zestril 10 MG PO SCH (09:58)
[2023-06-11] MEDS: ZOCOR 20MG PO SCH (09:58)
[2023-06-11] MEDS: PATIENT OWN MEDICATION PO SCH ×2 (09:59→15:00)
[2023-06-11 11:46] VITALS: BP 119/55; PULSE 80; TEMP 98.2; O2SAT 100
--- NOTE | 2023-06-11 12:11 | PCM.DS ---
Discharge Summary Date of Admission: 06/08/23 21:54 Date of Discharge: 06/11/23 Admitting Physician: SUMAN SMALLS MD Primary Care Provider: LUCIANRENETTA Allergies Allergies Sulfa (Sulfonamide Antibiotics) [Sulfa(Sulfonamide Antibiotics)] Allergy (Severe, Verified 06/08/23 17:15) Tightness of Throat Iodinated Contrast Media [IV Dye, Iodine Containing Contrast ] Allergy (Intermediate, Verified 06/08/23 17:15) Rash iodine Allergy (Intermediate, Verified 06/08/23 17:15) Rash levofloxacin [From Levaquin] Allergy (Intermediate, Verified 06/08/23 17:15) Rash Penicillins Allergy (Intermediate, Verified 06/08/23 17:15) Swelling codeine [Codeine] Allergy (Unknown, Verified 06/08/23 17:15) unknown, states "just told not to take it oxytetracycline [From Terramycin] Allergy (Unknown, Verified 06/08/23 17:15) oxytetracycline HCl [From Terramycin] Allergy (Unknown, Verified 06/08/23 17:15) Fish Containing Products Allergy (Verified 06/10/23 12:21) Hospital Summary - Hospital Course Hospital Course: 77 y/o F with h/o DM2, COPD on 2L O2, HTN, who presented 06/08/23 with two days of progressive severe weakness, confusion, dysuria. She fell twice in the last two days, and has felt weak overall, with mild confusion. Family noted temperatu re of 100.4 and brought patient to ED. She remains on her home 2L oxygen. Notes no change in chronic dyspnea or cough. During hospital course patient received IV levaquin with noted improvement. Urine culture positive for Ecoli and sensitive to Levaquin. Patient has worked with PT for which SNF for rehab had been recommended. After long discussion with family and patient, she will discharge home as requested with [facility]. New Diagnosis: UTI New Medications: Levaquin Follow Up: PCP Latest Assessment & Plan 77 y/o F with h/o COPD, DM2, and HTN, here with sepsis due to acute cystitis. ## sepsis - due to acute cystitis, with malaise, leukocytosis, fever, and initially tachcyardia and hypotension. Improved after IV fluid bolus in ED. Not giving further boluses as lactate is 1. Pyuria on UA and dysuria by history, c/w acute cystitis. - continue Levaquin 500 mg IV daily (severe penicillin, sulfa allergy, but tolerated levaquin previously) - follow up urine cultures 06/09: -Continue levaquin, patient is tolerating, will follow culture (2) Leukocytosis Current Visit: Yes Status: Acute Assessment & Plan: -Most likely secondary to UTI, will treat underlying cause with levaquin, Bcult and ucult pending, will follow cultures 06/10: -WBC trend improving 15.4<18<18.4 will continue current abx, follow cultures Code(s): D72.829 - ELEVATED WHITE BLOOD CELL COUNT, UNSPECIFIED (3) COPD (chronic obstructive pulmonary disease) Current Visit: Yes Status: Acute Assessment & Plan: ## COPD - on her home 2L O2. No signs of exacerbation. Some very mild wheezing on exam. - PRN DuoNebs q4h - keep on home 2L O2 (4) Acute cystitis Current Visit: Yes Status: Acute Assessment & Plan: -Ucult pending, patient with multiple allergies, will continue levaquin for now, follow culture 06/10: -Ucult growing gram - organism, will continue levaquin for now until sensitivity complete Code(s): N30.00 - ACUTE CYSTITIS WITHOUT HEMATURIA (5) Type 2 diabetes mellitus Current Visit: No Status: Chronic Qualifiers: Assessment & Plan: DM2 - diet-controlled at home - diabetic diet - low-dose SSI (6) HTN (hypertension) Current Visit: Yes Status: Acute Assessment & Plan: ## hypertension - initially mildly hypotensive, now running higher after IV fluids - resume home lisinopril 10 ##Hypokalemia -Potassium low at 3.0 this morning, will replenish per potassium protocol I spent 35 minutes [id number] with the patient on the day of discharge performing discharge exam, discussing hospital stay and discharge instructions with patient and caregivers, preparation of discharge records, prescriptions & referral forms and addressing any questions/concerns the patient had as documented above. - Vitals & Intake/Output Vital Signs: Vital Signs Temperature 98.2 F 06/11/23 11:45 Pulse Rate 80 06/11/23 11:45 Respiratory Rate 18 06/11/23 11:45 Blood Pressure 119/55 06/11/23 11:45 O2 Sat by Pulse Oximetry 100 11/03/23 11:45 Intake & Output: Intake & Output 06/09/23 06/10/23 06/11/23 06/12/23 11:59 11:59 11:59 11:59 Intake Total 120 1480 1160 Output Total 250 2000 1200 Balance -130 -520 -40 Weight 63 kg - Lab Result Diagrams: 06/11/23 04:42 06/11/23 04:42 Lab Results-Last 24 Hrs: Lab Results-Last 24 Hours 06/10/23 06/10/23 06/10/23 Range/Units 10:50 13:05 16:45 WBC (4.0-10.5) x10^3/uL RBC (4.1-5.4) x10^6/uL Hgb (12.0-16.0) g/dL Hct (35-47) % MCV (78-100) fL MCH (26-32) pg MCHC (32-36) g/dL RDW (11.5-14.0) % Plt Count (150-450) x10^3/uL MPV (7.5-11.0) fL Sodium (137-145) mmol/L Potassium 3.0 L* (3.5-5.1) mmol/L Chloride (98-107) mmol/L Carbon Dioxide (22-30) mmol/L Anion Gap (5-15) MEQ/L BUN (7-17) mg/dL Creatinine (0.52-1.04) mg/dL Estimated GFR ML/MIN Glucose (74-106) mg/dL POC Glucometer 95 (74 to 106) mg/dL Calcium (8.4-10.2) mg/dL Magnesium (1.6-2.3) mg/dL Total Bilirubin (0.2-1.3) mg/dL AST (14-36) U/L ALT (0-35) U/L Alkaline Phosphatase (38-126) U/L Serum Total Protein (6.3-8.2) g/dL Albumin (3.5-5.0) g/dL C. difficile Screen NEGATIVE (NEGATIVE) C.difficile 027-NAP1-B1 PRESUMPTIVE NEGATIVE (NEGATIVE) 06/10/23 06/10/23 06/11/23 Range/Units 18:15 21:14 04:42 WBC 10.7 H (4.0-10.5) x10^3/uL RBC 3.77 L (4.1-5.4) x10^6/uL Hgb 10.7 L (12.0-16.0) g/dL Hct 33.7 L (35-47) % MCV 89.4 (78-100) fL MCH 28.4 (26-32) pg MCHC 31.8 L (32-36) g/dL RDW 13.5 (11.5-14.0) % Plt Count 185 (150-450) x10^3/uL MPV 9.6 (7.5-11.0) fL Sodium (137-145) mmol/L Potassium 3.4 L (3.5-5.1) mmol/L Chloride (98-107) mmol/L Carbon Dioxide (22-30) mmol/L Anion Gap (5-15) MEQ/L BUN (7-17) mg/dL Creatinine (0.52-1.04) mg/dL Estimated GFR ML/MIN Glucose (74-106) mg/dL POC Glucometer 121 H (74 to 106) mg/dL Calcium (8.4-10.2) mg/dL Magnesium (1.6-2.3) mg/dL Total Bilirubin (0.2-1.3) mg/dL AST (14-36) U/L ALT (0-35) U/L Alkaline Phosphatase (38-126) U/L Serum Total Protein (6.3-8.2) g/dL Albumin (3.5-5.0) g/dL C. difficile Screen (NEGATIVE) C.difficile 027-NAP1-B1 (NEGATIVE) 06/11/23 06/11/23 06/11/23 Range/Units 04:42 06:27 11:29 WBC (4.0-10.5) x10^3/uL RBC (4.1-5.4) x10^6/uL Hgb (12.0-16.0) g/dL Hct (35-47) % MCV (78-100) fL MCH (26-32) pg MCHC (32-36) g/dL RDW (11.5-14.0) % Plt Count (150-450) x10^3/uL MPV (7.5-11.0) fL Sodium 137 (137-145) mmol/L Potassium 4.0 (3.5-5.1) mmol/L Chloride 102 (98-107) mmol/L Carbon Dioxide 29 (22-30) mmol/L Anion Gap 10.1 (5-15) MEQ/L BUN 19 H (7-17) mg/dL Creatinine 0.65 (0.52-1.04) mg/dL Estimated GFR 89.5 ML/MIN Glucose 107 H (74-106) mg/dL POC Glucometer 100 151 H (74 to 106) mg/dL Calcium 9.0 (8.4-10.2) mg/dL Magnesium 1.7 (1.6-2.3) mg/dL Total Bilirubin 0.90 (0.2-1.3) mg/dL AST 41 H (14-36) U/L ALT 21 (0-35) U/L Alkaline Phosphatase 64 (38-126) U/L Serum Total Protein 5.8 L (6.3-8.2) g/dL Albumin 3.0 L (3.5-5.0) g/dL C. difficile Screen (NEGATIVE) C.difficile 027-NAP1-B1 (NEGATIVE) Micro Results-Entire Visit: Microbiology 06/08/23 19:53 Urine Culture - Final Urine, Catheterized Escherichia Coli 06/08/23 17:45 Blood Culture - Preliminary Blood 06/08/23 17:36 Blood Culture - Preliminary Blood Accuchecks Date 06/11/23 Date 06/11/23 Date 06/10/23 Date 06/10/23 Time 11:45 Time 06:55 Time 16:51 - Procedures and Test Procedures and Tests throughout Hospitalization: Therapy Orders & Screens 06/08/23 22:42 OT Screen per Nursing Assess ONCE Comment: Protocol Order Physician Instructions: Greater than 3 points order OT Admission Screening Reason For Exam: Triggered on Admission Diagnosis: weakness, falls, malaise Open Wound/Cellutlitis/Pressure Ulcers: Yes Acute Fx/ORIF/Change in wt bearing status: No Severe MUSCULOSKELETAL pain: No ADL Dysfunction: No Acute CVA w/Hemiparesis/Hemiplegia: No Decreased Functional Mobility/Strength: No Sprain/Strain: No Acute Post-op Mobility Dysfunction: No Total Points: 5 PT Screen per Nursing Assess ONCE Comment: Protocol Order Physician Instructions: Greater than 3 points order PT Admission Screenin Reason For Exam: Triggered on Admission Diagnosis: weakness, falls, malaise Open Wound/Cellutlitis/Pressure Ulcers: Yes Acute Fx/ORIF/Change in wt bearing status: No Severe MUSCULOSKELETAL pain: No ADL Dysfunction: No Acute CVA w/Hemiparesis/Hemiplegia: No Decreased Functional Mobility/Strength: No Sprain/Strain: No Acute Post-op Mobility Dysfunction: No Total Points: 5 RT Screen per Nursing Assess ONCE Comment: Protocol Order Physician Instructions: Greater than 3 points order RT Admission Screen Reason For Exam: Triggered on Admission Diagnosis: weakness, falls, malaise Diagnosis: weakness, falls, malaise Pneumonia: No Home O2: Yes Asthma: No CHF: No Home CPAP/BIPAP: No Home Nebs/MDI: Yes Total Points: 10 06/08/23 23:46 Respiratory Therapy Assessment DAILY Comment: Diagnosis: weakness, falls, malaise 06/08/23 23:47 Oxygen Nasal Cannula 2 lpm Comment: Diagnosis: weakness, falls, malaise 06/10/23 11:01 PT Eval & Treat (MD Order) ONCE Reason for Eval:: weakness falls Diagnosis: weakness, falls, malaise OT Eval and Treat (MD Order) ONCE Comment: Physician Instructions: Reason For Exam: Diagnosis: weakness, falls, malaise Discharge Exam General Appearance: no apparent distress Neurologic Exam: alert, oriented x 3, cooperative Eye Exam: PERRL Ears, Nose, Throat Exam: normal ENT inspection Neck Exam: normal inspection Respiratory Exam: crackles/rales Cardiovascular Exam: regular rate/rhythm, normal heart sounds Gastrointestinal/Abdomen Exam: soft, normal bowel sounds Pelvic Exam: deferred Rectal Exam: deferred Back Exam: normal inspection Extremity Exam: normal inspection Skin Exam: pale Wound Assessment: Skin/Wound Assessment Wound/Incision Assessment Start: 06/09/23 10:39 Text: Status: Active Freq: Q6H Protocol: Document 06/11/23 10:00 KAREN (Rec: 06/11/23 11:11 KAREN [id number]) Wound/Incision Assessment Posterior Sacrum Wound Assessment Shift Assessment Wound Type Pressure Ulcer Drainage Amount None General Appearance Open to air,Clean/Dry,Reddened Surrounding Tissue Emmons Comment barrier cream applied Wound Photo Photo Taken No Final Diagnosis/Problem List - Final Discharge Diagnosis/Problem (1) Sepsis Current Visit: Yes Status: Acute (2) Leukocytosis Current Visit: Yes Status: Acute Code(s): D72.829 - ELEVATED WHITE BLOOD CELL COUNT, UNSPECIFIED (3) COPD (chronic obstructive pulmonary disease) Current Visit: Yes Status: Acute (4) Acute cystitis Current Visit: Yes Status: Acute Code(s): N30.00 - ACUTE CYSTITIS WITHOUT HEMATURIA (5) Type 2 diabetes mellitus Current Visit: No Status: Chronic (6) HTN (hypertension) Current Visit: Yes Status: Acute Code(s): I10 - ESSENTIAL (PRIMARY) HYPERTENSION (7) Hypokalemia Current Visit: Yes Status: Acute Code(s): E87.6 - HYPOKALEMIA - Discharge Disposition: Home, Self-Care Condition: Stable Prescriptions: New Levofloxacin [Levofloxacin 500 MG Tablet] 500 mg PO DAILY 3 Days #3 tablet Continue Gabapentin 300 mg PO TID Theophylline Anhydrous [Theophylline ER] 300 mg PO BID Citalopram Hydrobromide 20 mg* [ceLEXa 20 MG] 40 mg PO DAILY Omeprazole 1 cap PO DAILY Aspirin EC 81 mg [Ecotrin 81 mg] 1 tab PO DAILY Lisinopril 10 mg [Zestril 10 MG] 1 tab PO DAILY Atorvastatin Calcium [Lipitor] 1 tab PO DAILY Follow up with: RENETTA EPSTEIN MD [Primary Care Provider] - 06/18/23 2:15 pm (at [facility] )
[2023-06-11] MEDS ORDERED: PATIENT OWN MEDICATION PO SCH (22:00)
== END 2023-06-11 16:40 | disposition home health service (06) ==
LOC: ED 16:47 → MED SURG 21:54
PROVIDERS: ADMIT Internal Medicine; ATTEND Internal Medicine
DX: A41.9 Sepsis, unspecified organism (principal); D72.829 Elevated white blood cell count, unspecified; L89.159 Pressure ulcer of sacral region, unspecified stage; J44.9 Chronic obstructive pulmonary disease, unspecified; N30.00 Acute cystitis without hematuria; E11.9 Type 2 diabetes mellitus without complications; I10 Essential (primary) hypertension; E87.6 Hypokalemia; Z99.81 Dependence on supplemental oxygen; W19.XXXA Unspecified fall, initial encounter; A49.8 Other bacterial infections of unspecified site; Z79.899 Other long term (current) drug therapy; Z20.828 Contact with and (suspected) exposure to other viral communicable diseases
CPT/HCPCS: 0241U; 36000; 36415; 51702; 70450; 71045; 80048; 80053; 81001; 82947; 83605; 83735; 84132; 85025; 85027; 87040; 87045; 87046; 87077; 87086; 87177; 87186; 87209; 87328; 87329; 87427; 87493; 93005; 93041; 94640; 94760; 94762; 96360; 96365; 97110; 97162; 97165; 97530; 99285; Q3014; J1956; A9270-GY

== ENCOUNTER 2024-03-16 12:45 | Emergency (ER) | payer MEDICARE, SELFPAY ==
[2024-03-16 13:03] VITALS: RESP 18; TEMP 98.6
--- NOTE | 2024-03-16 14:26 | XRAY ---
Indication: Weakness and fever. Status post fall with head injury. Multiple contiguous axial images obtained through the head without contrast. Comparison: June 08, 2023 Again age-appropriate global atrophy, mild periventricular degenerative micro-ischemia bilaterally, and remote lacunar infarcts right basal ganglia. No acute intracranial hemorrhage, abnormal extra-axial fluid collection, or mass effect. Fourth ventricle is midline without hydrocephalus. New small right posterior scalp hematoma. Bony calvarium intact again with hyperostosis frontalis interna. Visualized paranasal sinuses and mastoid air cells are clear. Impression: New right posterior scalp hematoma. Otherwise continued nonacute senile brain with remote lacunar infarcts right basal ganglia.
--- NOTE | 2024-03-16 14:30 | XRAY ---
Indication: Status post fall. Multiple contiguous axial images obtained through the cervical spine. Sagittal and coronal reformatted images obtained. Comparison: October 12, 2022 Osseous structures remain demineralized. Axial images negative for acute fracture, suspicious bony lesions, or spinal canal stenosis. Again mild/moderate multilevel degenerative endplate spurring, moderate multilevel bilateral degenerative facet hypertrophy, and moderate atlantoaxial degenerative changes. Sagittal and coronal reformatted images again demonstrates lordotic straightening, mild levoscoliosis, C3-C4/C5-C7 disc space loss, and 3 mm C3 anterolisthesis. No acute compression fracture, subluxation, or jumped facet. Normal appearing craniocervical junction. Visualized noncontrasted soft tissues again demonstrates minimal bilateral carotid calcifications. Lung apices are clear. Impression: 1. Continued negative acute fracture. 2. Again osteopenia, multilevel degenerative spondylosis, and grade 1 C3 anterolisthesis.
--- NOTE | 2024-03-16 14:38 | XRAY ---
Indication: Status post fall. Multiple contiguous axial images obtained through the lumbar spine. Sagittal and coronal reformatted images obtained. Comparison: CT abdomen/pelvis February 16, 2017 Osseous structures remain demineralized. Again beam artifact from intact bilateral L4-S1 posterior fusion hardware. Same L4-S1 levels demonstrates laminectomy. Again mild broad-based disc osteophyte complex with degenerative vacuum disc phenomena at T11-L3 levels. Worsening remote appearing anterior inferior endplate fracture of T11 with 50-75% height loss. Otherwise negative for acute fracture, suspicious bony lesions, or spinal canal stenosis. Sagittal and coronal reformatted images again demonstrates normal alignment with T11-L3 disc space narrowing. No acute compression fracture or subluxation. Visualized noncontrasted soft tissues again demonstrates mild scattered aortoiliac calcifications. Impression: 1. Again L4-S1 laminectomy and fusion surgery with beam artifact from bilateral posterior hardware. 2. Worsening remote inferior endplate fracture T11 as detailed. 3. Negative acute fracture/subluxation. 4. Chronic findings including osteopenia, multilevel degenerative disc disease, and arteriosclerotic disease.
--- NOTE | 2024-03-16 14:41 | ERPHSYRPT ---
- History of Present Illness Time Seen by Provider: 03/16/24 12:58 Source: patient, EMS Exam Limitations: no limitations Patient Subjective Stated Complaint: pt states that she was walking out to her car and her walker got caught on something and fell Triage Nursing Assessment: pt came into the er via ambulance; pt is axo x3; c/o fall; pt states 9/10 pain to head, back, BUE; contusion to rt back of head; pupils 2 mm and PERRL; strong ian hobber; skin PDW; no respiratory distress present; vitals wnl Physician History: 78 years old female with history of chronic respiratory failure secondary to COPD on 2 L oxygen, hypertension, hyperlipidemia, chronic back pain presented to the ER via EMS after she was getting out of her PCP office to the car, her walker got tangled and she fell backward, did hit her head and low back. She has a goose egg on the occipital area with no loss of consciousness. Patient denies any focal numbness tingling or weakness. Complaining of some headache and low back pain. Denies any chest pain palpitations or shortness of breath before or after the fall. No nausea or vomiting. No injury anywhere else. Allergies/Adverse Reactions: Sulfa (Sulfonamide Antibiotics) [Sulfa(Sulfonamide Antibiotics)] Allergy (Severe, Verified 03/16/24 12:47) Tightness of Throat Iodinated Contrast Media [IV Dye, Iodine Containing Contrast ] Allergy (Intermediate, Verified 03/16/24 12:47) Rash iodine Allergy (Intermediate, Verified 03/16/24 12:47) Rash Penicillins Allergy (Intermediate, Verified 03/16/24 12:47) Swelling codeine [Codeine] Allergy (Unknown, Verified 03/16/24 12:47) unknown, states "just told not to take it oxytetracycline [From Terramycin] Allergy (Unknown, Verified 03/16/24 12:47) oxytetracycline HCl [From Terramycin] Allergy (Unknown, Verified 03/16/24 12:47) Fish Containing Products Allergy (Verified 03/16/24 12:47) Home Medications: Gabapentin 300 mg PO TID 03/29/19 [History] Citalopram Hydrobromide 20 mg* [ceLEXa 20 MG] 40 mg PO DAILY 10/12/22 [History] Theophylline Anhydrous [Theophylline ER] 300 mg PO BID 10/12/22 [History] Aspirin EC 81 mg [Ecotrin 81 mg] 1 tab PO DAILY 06/08/23 [History] Atorvastatin Calcium [Lipitor] 1 tab PO DAILY 06/08/23 [History] Lisinopril 10 mg [Zestril 10 MG] 1 tab PO DAILY 06/08/23 [History] Albuterol Sulfate Mdi [ALBUTEROL/Proair Hfa MDI] 2 puff IH Q6HPRN PRN 03/16/24 [History] Aripiprazole 10 mg [Abilify 10 MG] 5 mg PO DAILY 03/16/24 [History] Ascorbic Acid 500 mg [Vitamin C 500 MG] 500 mg PO DAILY 03/16/24 [History] Cholecalciferol (Vitamin D3) [Vitamin D3] 2,000 units PO DAILY 03/16/24 [History] Clopidogrel Bisulfate [PLAVIX Tablet] 75 mg PO DAILY 03/16/24 [History] Cyanocobalamin 500 Mcg [Vitamin B-12 500 MCG] 1,000 mcg SL DAILY 03/16/24 [History] Insulin Lispro [Humalog Kwikpen U-100] 20 unit SQ BID 03/16/24 [History] Meclizine HCl 12.5 mg PO TID 03/16/24 [History] PANTOPRAZOLE 40 mg Tablet [Protonix 40MG Tablet] 40 mg PO DAILY 03/16/24 [History] Tramadol HCl 50 mg [Ultram 50 mg] 50 mg PO Q6HPRN PRN 03/16/24 [History] clonazePAM [Clonazepam] 0.5 mg PO BID 03/16/24 [History] Hx Tetanus, Diphtheria Vaccination/Date Given: Yes Hx Influenza Vaccination/Date Given: No Hx Pneumococcal Vaccination/Date Given: Yes Travel Risk - International Travel Have you traveled outside of the country in past 3 weeks: No - Emerging Infectious Disease Are you exhibiting symptoms associated with any current EIDs: No - Review of Systems Constitutional: No Symptoms Eyes: No Symptoms Ears, Nose, & Throat: No Symptoms Respiratory: Dyspnea Cardiac: No Symptoms Abdominal/Gastrointestinal: No Symptoms Genitourinary Symptoms: No Symptoms Musculoskeletal: Arthralgias, Back Pain Skin: No Symptoms Neurological: Headache Psychological: Anxiety Endocrine: No Symptoms Hematologic/Lymphatic: No Symptoms Immunological/Allergic: No Symptoms - Past Medical History Pertinent Past Medical History: Yes Neurological History: No Pertinent History ENT History: Cataracts Cardiac History: High Cholesterol, Hypertension Respiratory History: COPD, Asthma Endocrine Medical History: Diabetes Type II Musculoskeletal History: Arthritis GI Medical History: GERD, Gallbladder Disease History: No Pertinent History Psycho-Social History: Anxiety, Depression Female Reproductive Disorders: No Pertinent History Other Medical History: DIAGNOSED WITH GIANG (LIVER PROBLEM). 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 - Past Surgical History Past Surgical History: Yes Neuro Surgical History: No Pertinent History Cardiac: No Pertinent History, Cardiac Catheterization Respiratory: No Pertinent History Gastrointestinal: Appendectomy, Bowel Surgery, Cholecystectomy Genitourinary: No Pertinent History Musculoskeletal: Orthopedic Surgery, Other Female Surgical History: Hysterectomy Other Surgical History: Right hip and femur surgery Significant Family History: no pertinent family hx - Social History Smoking Status: Former smoker Exposure to second hand smoke: No Drug Use: none Patient Lives Alone: No () - Social Determinants of Health Will the patient participate in the screening: Yes Do you worry about a steady place to live?: No Do you have any problems with any of the following?: No known problems In the past 12 months,have you had to go without utilities?: No Transportation Issues: No Has anyone in your support network made you feel unsafe?: No Have you or anyone in your house had to go without enough: No - Nursing Vital Signs Nursing Vital Signs: Initial Vital Signs Blood Pressure 105/60 03/16/24 12:47 O2 Sat by Pulse Oximetry 99 03/16/24 12:47 Pain Scale Pain Intensity 4 - [place] Coma Score Best Eye Response ([place]): (4) open spontaneously Best Verbal Response ([place]): (5) oriented Best Motor Response ([place]): (6) obeys commands [place] Total: 15 - Physical Exam General Appearance: no apparent distress, alert Head Injury: swelling, tenderness (Occipital area 3 x 2 cm swelling/hematoma, soft consistency. No step in deformity.) Eye Exam: PERRL/EOMI, eyes nml inspection ENT Exam: airway nml, No evidence of ENT injury Neck Exam: supple, trachea midline, full range of motion, normal alignment, normal inspection Respiratory/Chest Exam: normal breath sounds, respiratory distress, No chest tenderness Cardiovascular Exam: normal heart sounds, regular rate/rhythm Gastrointestinal Exam: soft, normal bowel sounds, No tenderness Back Exam: normal inspection, point tenderness (Minimal tenderness lower lumbar paraspinal area) Extremity Exam: normal inspection, normal range of motion Neurologic Exam: alert, oriented x 3, cooperative, paper twister II-XII nml as tested, normal mood/affect, nml cerebellar function, sensation nml, No motor deficits Skin Exam: normal color SpO2 Interpretation: O2 applied SpO2: 94 O2 Delivery: Nasal Cannula (2 L) Ordered Tests: Active Orders 24 hr Category Date Time Status CERVICAL SPINE WO CONTRAST [CT] Stat Exams 03/16/24 13:14 Completed HEAD WITHOUT CONTRAST [CT] Stat Exams 03/16/24 13:14 Completed LUMBAR SPINE W/O [CT] Stat Exams 03/16/24 13:14 Completed - Progress Progress: pain not gone completely, re-examined Progress Note: 03/16/24 15:12 78 years old with multiple medical problems including chronic respiratory failure on 2 L oxygen, chronic back pain, issues with balance, needs walker for ambulation was evaluated in the ER after she had a mechanical fall with some issues with the walker and had injury to the head and lower back. Patient had no loss of consciousness. She is awake alert and oriented. Complaining of some pain in the lower back and headache. Offered pain medication which she declined. She has nonfocal neuroexam. Did obtain CT head and cervical spine which are negative for any acute trauma related findings. She has a small hematoma which is improving on reevaluation. She has negative neuroexam and lower extremities. Has no fracture or subluxation of lumbar spine. Has T11 compression fracture which is chronic. Patient is not complaining of pain in this area. It was a mechanical fall, do not think patient needs any other workup. I have shared the results of workup with patient and family and recommended continue with intermittent ice application, Tylenol/Neurontin and tramadol which she has at home as needed. Discussed signs symptoms of worsening needing return to ER which he seems understanding. Stable for discharge. Counseled pt/family regarding: diagnosis, need for follow-up, rad results Medical Desision Making - Independent Historian Additional History obtained from: Child - Diagnostic Testing Diagnostic test were ordered, analyzed, and reviewed by me: Yes Radiological Interpretation: Reviewed by me - Departure Departure Disposition: Home Clinical Impression: Fall, Scalp contusion, Back strain Condition: Stable Critical Care Time: No Referrals: RENETTA EPSTEIN MD [Primary Care Provider] - Follow up with PCP 1 day Instructions: Preventing falls in adults, Contusion (DC) Additional Instructions: Continue with your current pain medications which you have at home. Use walker for ambulation all the time. Return to ER for intractable pain, numbness/weakness of extremities, intractable headache, visual disturbance, difficulty speech etc. Intermittent ice application.
[2024-03-16 14:44] VITALS: O2SAT 94
[2024-03-16 15:19] VITALS: BP 118/51; PULSE 69
== END 2024-03-16 15:35 | disposition home or self-care (01) ==
LOC: ED 12:45
DX: S00.03XA Contusion of scalp, initial encounter (principal); S39.012A Strain of muscle, fascia and tendon of lower back, initial encounter; W01.0XXA Fall on same level from slipping, tripping and stumbling without subsequent striking against object, initial encounter; Y93.01 Activity, walking, marching and hiking; Y92.481 Parking lot as the place of occurrence of the external cause; E78.5 Hyperlipidemia, unspecified; I10 Essential (primary) hypertension; E11.9 Type 2 diabetes mellitus without complications; Z79.02 Long term (current) use of antithrombotics/antiplatelets; Z79.4 Long term (current) use of insulin; Z79.891 Long term (current) use of opiate analgesic; Z79.899 Other long term (current) drug therapy
CPT/HCPCS: 70450; 72125; 72131; 99283

== ENCOUNTER 2024-06-03 12:53 | Emergency (ER) | payer MEDICARE, SELFPAY ==
[2024-06-03 12:57] VITALS: TEMP 97.2
--- NOTE | 2024-06-03 13:44 | ERPHSYRPT ---
- History of Present Illness Time Seen by Provider: 06/03/24 13:25 Historian: patient, family (daughter) Exam Limitations: no limitations Patient Subjective Stated Complaint: PT HERE FOR NOT FEELING WELL FOR A COUPLE DAYS, SHE THINKS HER DIVERTICULITITS IS ACTING UP, CO NAUSEA AND DRY HEAVES, DENIES FEVER Triage Nursing Assessment: ARRIVED PER EMS,ALERT, O2 2LNC AT PER HOME, RESP EASY, NO COUGH. SKIN W/D/P. NOT EDEMA NOTED, ABD SOFT Physician History: For the past 10 days pt has had constant generalized abdominal pain now 8/10 in severity with fever of 99.8 degrees since yesterday; LBM was 3 days ago & wnl. Pt states she has had nausea and vomited twice without blood this morning. Pt denies chest pain, shortness of air, headache. Allergies/Adverse Reactions: Sulfa (Sulfonamide Antibiotics) [Sulfa(Sulfonamide Antibiotics)] Allergy (Severe, Verified 06/03/24 12:55) Tightness of Throat Iodinated Contrast Media [IV Dye, Iodine Containing Contrast ] Allergy (Intermediate, Verified 06/03/24 12:55) Rash iodine Allergy (Intermediate, Verified 06/03/24 12:55) Rash Penicillins Allergy (Intermediate, Verified 06/03/24 12:55) Swelling codeine [Codeine] Allergy (Unknown, Verified 06/03/24 12:55) unknown, states "just told not to take it oxytetracycline [From Terramycin] Allergy (Unknown, Verified 06/03/24 12:55) oxytetracycline HCl [From Terramycin] Allergy (Unknown, Verified 06/03/24 12:55) Fish Containing Products Allergy (Verified 06/03/24 12:55) Home Medications: Gabapentin 300 mg PO TID 03/29/19 [History] Citalopram Hydrobromide 20 mg* [ceLEXa 20 MG] 40 mg PO DAILY 10/12/22 [History] Theophylline Anhydrous [Theophylline ER] 300 mg PO BID 10/12/22 [History] Aspirin EC 81 mg [Ecotrin 81 mg] 1 tab PO DAILY 06/08/23 [History] Atorvastatin Calcium [Lipitor] 1 tab PO DAILY 06/08/23 [History] Lisinopril 10 mg [Zestril 10 MG] 1 tab PO DAILY 06/08/23 [History] Albuterol Sulfate Mdi [ALBUTEROL/Proair Hfa MDI] 2 puff IH Q6HPRN PRN 03/16/24 [History] Aripiprazole 10 mg [Abilify 10 MG] 5 mg PO DAILY 03/16/24 [History] Ascorbic Acid 500 mg [Vitamin C 500 MG] 500 mg PO DAILY 03/16/24 [History] Cholecalciferol (Vitamin D3) [Vitamin D3] 2,000 units PO DAILY 03/16/24 [History] Clopidogrel Bisulfate [PLAVIX Tablet] 75 mg PO DAILY 03/16/24 [History] Cyanocobalamin 500 Mcg [Vitamin B-12 500 MCG] 1,000 mcg SL DAILY 03/16/24 [History] Insulin Lispro [Humalog Kwikpen U-100] 20 unit SQ BID 03/16/24 [History] Meclizine HCl 12.5 mg PO TID 03/16/24 [History] PANTOPRAZOLE 40 mg Tablet [Protonix 40MG Tablet] 40 mg PO DAILY 03/16/24 [History] Tramadol HCl 50 mg [Ultram 50 mg] 50 mg PO Q6HPRN PRN 03/16/24 [History] clonazePAM [Clonazepam] 0.5 mg PO BID 03/16/24 [History] Hx Tetanus, Diphtheria Vaccination/Date Given: Yes Hx Influenza Vaccination/Date Given: No Hx Pneumococcal Vaccination/Date Given: Yes Immunizations Up to Date: Yes Travel Risk - International Travel Have you traveled outside of the country in past 3 weeks: No - Emerging Infectious Disease Are you exhibiting symptoms associated with any current EIDs: No - Review of Systems Constitutional: Fever Ears, Nose, & Throat: No Ear Pain, No Throat Pain Respiratory: No Dyspnea Cardiac: No Chest Pain Abdominal/Gastrointestinal: Abdominal Pain, Nausea, Vomiting, No Diarrhea Neurological: No Headache - Past Medical History Pertinent Past Medical History: Yes Neurological History: No Pertinent History ENT History: Cataracts Cardiac History: High Cholesterol, Hypertension Respiratory History: COPD, Asthma Endocrine Medical History: Diabetes Type II Musculoskeletal History: Arthritis GI Medical History: GERD, Gallbladder Disease History: No Pertinent History Psycho-Social History: Anxiety, Depression Female Reproductive Disorders: No Pertinent History Other Medical History: DIAGNOSED WITH GIANG (LIVER PROBLEM). 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 - Past Surgical History Past Surgical History: Yes Neuro Surgical History: No Pertinent History Cardiac: No Pertinent History, Cardiac Catheterization Respiratory: No Pertinent History Gastrointestinal: Appendectomy, Bowel Surgery, Cholecystectomy Genitourinary: No Pertinent History Musculoskeletal: Orthopedic Surgery, Other Female Surgical History: Hysterectomy Other Surgical History: Right hip and femur surgery Significant Family History: no pertinent family hx - Social History Smoking Status: Former smoker Exposure to second hand smoke: No Drug Use: none Patient Lives Alone: No () - Social Determinants of Health Will the patient participate in the screening: Yes Do you worry about a steady place to live?: No Do you have any problems with any of the following?: No known problems In the past 12 months,have you had to go without utilities?: No Transportation Issues: No Has anyone in your support network made you feel unsafe?: No Have you or anyone in your house had to go without enough: No - Nursing Vital Signs Nursing Vital Signs: Initial Vital Signs Temperature 97.2 F 06/03/24 12:56 Pulse Rate 72 06/03/24 12:56 Respiratory Rate 22 06/03/24 12:56 Blood Pressure 116/71 06/03/24 12:56 O2 Sat by Pulse Oximetry 99 06/03/24 12:56 Pain Scale Pain Intensity 4 - Physical Exam General Appearance: alert Eye Exam: eyes nml inspection Ears, Nose, Throat Exam: TMs normal, pharynx normal Neck Exam: normal inspection Respiratory Exam: lungs clear Cardiovascular Exam: normal heart sounds Gastrointestinal/Abdomen Exam: normal bowel sounds Neurologic Exam: alert, cooperative SpO2 Interpretation: normal SpO2: 99 O2 Delivery: Room Air - Course Nursing assessment & vital signs reviewed: Yes - CT Exams Abdomen/Pelvis CT Interpretation: Tele-radiologist Report (Noncomplicated sigmoid diverticulosis. Right hepatic lobe segment VII tiny focal contour bulge for correlation with ultrasound study.See rest of report.) Ordered Tests: Active Orders 24 hr Category Date Time Status IV Insertion STAT Care 06/03/24 13:44 Active ABDOMEN AND PELVIS W/0 CONTRAS [CT] Stat Exams 06/03/24 13:45 Completed AMYLASE Stat Lab 06/03/24 13:00 Completed CBC W DIFF Stat Lab 06/03/24 13:00 Completed CMP Stat Lab 06/03/24 13:00 Completed LIPASE Stat Lab 06/03/24 13:00 Completed MAGNESIUM Stat Lab 06/03/24 13:00 Completed UA W/RFX UR CULTURE Stat Lab 06/03/24 15:49 Completed Medication Summary Generic Name Dose Route Start Last Admin Trade Name Isatu PRN Reason Stop Dose Admin Acetaminophen 1,000 mg 06/03/24 14:00 Acetaminophen 1,000 Mg/100 Ml Ml IV 07/03/24 13:59 [id number] SONAL Discontinued Medications Generic Name Dose Route Start Last Admin Trade Name Isatu PRN Reason Stop Dose Admin Sodium Chloride 1,000 mls @ 999 mls/hr 06/03/24 13:44 06/03/24 15:50 Sodium Chloride 0.9% 1000 Ml IV 06/03/24 14:44 Infused .Q1H1M STA Infusion Sodium Chloride Confirm 06/03/24 14:15 Sodium Chloride 0.9% 1000 Ml Administered 06/03/24 14:16 Dose 1,000 mls @ ud .ROUTE .STK-MED ONE Potassium Bicarbonate 25 meq 06/03/24 17:16 Potassium Bicarbonate 25 Meq Tab PO 06/03/24 17:17 STAT ONE Lab/Rad Data: Laboratory Result Diagrams 06/03/24 13:00 06/03/24 13:00 Laboratory Results 06/03/24 06/03/24 06/03/24 Range/Units 15:49 13:00 13:00 WBC 8.8 (3.98-10.04) x10^3/uL RBC 3.99 (3.93-5.22) x10^6/uL Hgb 11.4 (11.2-15.7) g/dL Hct 35.7 (34.1-44.9) % MCV 89.5 (79.4-94.8) fL MCH 28.6 (25.6-32.2) pg MCHC 31.9 L (32.2-35.5) g/dL RDW 13.7 (11.7-14.4) % Plt Count 329 (182-369) x10^3/uL MPV 9.7 (9.4-12.3) fL Gran % 73.6 H (34.0-71.1) % Immature Gran % (Auto) 0.3 (0.001-0.429) % Nucleat RBC Rel Count 0.0 (0.00-0.2) % Eos # (Auto) 0.15 (0.04-0.36) x10^3/uL Immature Gran # (Auto) 0.03 (0.001-0.031) x10^3u/L Absolute Lymphs (auto) 1.32 (1.18-3.74) x10^3/uL Absolute Monos (auto) 0.76 (0.24-0.86) x10^3/uL Absolute Nucleated RBC 0.00 (0.00-0.012) x10^3u/L Lymphocytes % 15.0 L (19.3-51.7) % Monocytes % 8.6 (4.7-12.5) % Eosinophils % 1.7 (0.7-5.8) % Basophils % 0.8 (0.1-1.2) % Absolute Granulocytes 6.48 H (1.56-6.13) x10^3/uL Basophils # 0.07 (0.01-0.08) x10^3/uL Sodium 139 (135-145) mmol/L Potassium 3.3 L (3.5-5.1) mmol/L Chloride 97 L (98-107) mmol/L Carbon Dioxide 36 H (22-30) mmol/L Anion Gap 9.1 (5-15) MEQ/L BUN 17 (7-17) mg/dL Creatinine 0.61 (0.52-1.04) mg/dL Estimated GFR 90.3 ML/MIN Glucose 140 H (74-106) mg/dL Calcium 9.6 (8.4-10.2) mg/dL Magnesium 2.0 (1.6-2.3) mg/dL Total Bilirubin 2.00 H (0.2-1.3) mg/dL AST 26 (14-36) U/L ALT 13 (0-35) U/L Alkaline Phosphatase 83 (38-126) U/L Serum Total Protein 6.5 (6.3-8.2) g/dL Albumin 3.6 (3.5-5.0) g/dL Amylase 58 (30-110) U/L Lipase 64 (23-300) U/L Urine Color Yellow (Yellow) Urine Appearance Cloudy A (Clear) Urine pH 7.0 (4.6-8.0) Ur Specific Salyer 1.015 (1.005-1.030) Urine Protein Negative (Negative) Urine Glucose (UA) Negative (Negative) mg/dL Urine Ketones Negative (Negative) Urine Blood Negative (Negative) Urine Nitrite Negative (Negative) Urine Bilirubin Negative (Negative) Urine Urobilinogen >=8.0 A (0.2) mg/dL Ur Leukocyte Esterase Trace A (Negative) U Hyaline Cast (Auto) NONE SEEN (0-2) /LPF Urine Microscopic RBC 0-2 (0-5) /HPF Urine Microscopic WBC NONE (0-5) /HPF Ur Epithelial Cells Few (None Seen) /HPF Urine Bacteria Few A (None Seen) /HPF Urine Culture Reflexed NO (NO) - Progress Progress: improved Counseled pt/family regarding: lab results, diagnosis, need for follow-up, rad results Medical Desision Making - Diagnostic Testing Diagnostic test were ordered, analyzed, and reviewed by me: Yes Radiological Interpretation: Teleradiologist Report - Departure Departure Disposition: Home Clinical Impression: Abdominal pain, Vomiting Condition: Stable Critical Care Time: No Referrals: RENETTA EPSTEIN MD [Primary Care Provider] - Follow up/PCP as directed Instructions: Nausea and vomiting in adults Additional Instructions: Follow up with private doctor tomorrow.
[2024-06-03 13:50] LABS: Absolute Neutrophil Ct (ANC) 6.48 x10^3/uL (1.56-6.13); BASOPHIL % 0.8 % (0.1-1.2); Basophil (Absolute #) 0.07 x10^3/uL (0.01-0.08); Eosinophil % 1.7 % (0.7-5.8); Eosinophil (Absolute #) 0.15 x10^3/uL (0.04-0.36); Hematocrit 35.7 % (34.1-44.9); Hemoglobin 11.4 g/dL (11.2-15.7); IMMATURE GRAN # 0.03 x10^3u/L (0.001-0.031); IMMATURE GRAN % 0.3 % (0.001-0.429); Lymphocyte (Absolute #) 1.32 x10^3/uL (1.18-3.74); Mean Cell Volume 89.5 fL (79.4-94.8); Mean Corpuscular Hemoglobin 28.6 pg (25.6-32.2); Mean Corpuscular Hgb Concent. 31.9 g/dL (32.2-35.5); Mean Platelet Volume 9.7 fL (9.4-12.3); Monocyte (Absolute #) 0.76 x10^3/uL (0.24-0.86); Monocytes % 8.6 % (4.7-12.5); Neutrophil % 73.6 % (34.0-71.1); Platelet Count 329 x10^3/uL (182-369); Red Blood Count 3.99 x10^6/uL (3.93-5.22); Red Cell Distribution Width 13.7 % (11.7-14.4); White Blood Count 8.8 x10^3/uL (3.98-10.04)
[2024-06-03 13:56] LABS: ALBUMIN 3.6 g/dL (3.5-5.0); ANION GAP 9.1 MEQ/L (5-15); Calcium 9.6 mg/dL (8.4-10.2); Creatinine 1 0.61 mg/dL (0.52-1.04); EST GLOMERULAR FILTRATION RATE 90.3 ML/MIN; Potassium 3.3 mmol/L (3.5-5.1); Total Protein 6.5 g/dL (6.3-8.2)
[2024-06-03] MEDS ORDERED: OFIRMEV IV SCH (14:00)
[2024-06-03] MEDS ORDERED: Sodium Chloride 0.9% 1000 ML 1,000 ML ONE (14:15)
[2024-06-03] MEDS: Sodium Chloride 0.9% 1000 ML 1,000 ML IV STA (14:18)
[2024-06-03 16:07] LABS: Appearance Cloudy (Clear); Bilirubin Negative (Negative); Blood Negative (Negative); Glucose, Urine Negative (Negative); Hyaline Casts NONE SEEN /LPF (0-2); Ketones Negative (Negative); Leukocyte Esterase Trace (Negative); Nitrite Negative (Negative); Protein,Urine Dip Negative (Negative); Specific Gravity 1.015 (1.005-1.030); Urobilinogen >=8.0 mg/dL (0.2)
[2024-06-03 16:15] LABS: Bacteria Few /HPF (None Seen); Epithelial Cells Few /HPF (None Seen); RBC 0-2 /HPF (0-5)
--- NOTE | 2024-06-03 16:25 | XRAY ---
CLINICAL HISTORY: pain COMPARISON: None. TECHNIQUE: Non-contrast CT of the abdomen and pelvis was performed, with the following protocol: axial images, and reconstructed coronal and sagittal images. No intravenous contrast was administered. One of the following dose reduction techniques was utilized for this exam: Automated exposure control, adjustment of the mA and/or kV according to patient size, and use of iterative reconstruction. FINDINGS: Abdomen: Liver: Normal in size, shape, and density. Tiny focal contour bulge is seen at the posterior aspect of the right hepatic lobe segment VII measuring about 11 mm in maximum diameter , No other focal lesions, cysts, or masses were identified. Gallbladder and Biliary System: Tsurgically removed with surgical clips at the operative bed Pancreas: Pancreatic head, body, and tail are visualized and appear atrophic. No pancreatic masses or calcifications were noted. Spleen: Normal in size, shape, and density. No splenic lesions or masses were identified apart from tiny faintly dense foci near upper pole measuring 7 & 6 mm in maximum diameters likely old healed granuloma. Kidneys and Adrenal Glands: Both kidneys are normal in size, shape, and position. Cortical thickness is within normal limits. No renal calculi or hydronephrosis. Adrenal glands are unremarkable. Appendix: no significant mural thickening or appendicolith with intraluminal air , no collections at right iliac fossa or local inflammatory changes Pelvis: Urinary Bladder: Normal in contour and wall thickness. No intraluminal lesions. Uterus: small sized Ovaries: Not well visualized but no gross abnormalities noted. Vagina: Normal in contour and wall thickness. Peritoneal and Retroperitoneal Structures: No free fluid or abnormal fluid collections were identified within the abdomen or pelvis. No lymphadenopathy was noted. Bowel: The visualized bowel loops are normal in caliber and appearance. No evidence of bowel obstruction or wall thickening. multiple tiny diverticular outpouchings within sigmoid colon with clear adjacent fat planes , no pericolic collections anterior abdominal wall small, para umbilical hernia with fat content ( defect 15 mm in maximum diameter ) Bones and Soft Tissues: spondylotic changes of the lumbar spine with evidence of internal fixation of L4. L5 & S1 vertebral bodies by interpedicular screws and two metallic rods as well as spinolomainectomies of L4 & L5 vertebrae Internal fixation of left femoral neck by dynamic hip screw and left femoral shaft by intramedullary nail( slightly protruding caudal Bilateral pelvic phleboli. Bilateral sacroiliitis Aortic calcific atheromatous changes lower chest cuts revealed right basal thin atelectatic plates IMPRESSION: 1. Right hepatic lobe segment VII tiny focal contour bulge for correlation with ultrasound study. 2. Paraumblical fat containing hernia 3. Noncomplicated sigmoid diverticulosis . Electronically Signed by: Lee Wong MD. (06/03/2024 16:21:34 EDT)
[2024-06-03] MEDS ORDERED: K-LYTE ONE (17:23)
[2024-06-03] MEDS: K-LYTE PO ONE (17:23)
[2024-06-03 17:32] VITALS: PULSE 78; RESP 18; O2SAT 98
[2024-06-03 17:41] VITALS: BP 120/73
== END 2024-06-03 17:41 | disposition home or self-care (01) ==
LOC: ED 12:53
DX: R10.84 Generalized abdominal pain (principal); R11.2 Nausea with vomiting, unspecified; R50.9 Fever, unspecified; E78.5 Hyperlipidemia, unspecified; I10 Essential (primary) hypertension; E11.9 Type 2 diabetes mellitus without complications; Z79.02 Long term (current) use of antithrombotics/antiplatelets; Z79.4 Long term (current) use of insulin; Z79.899 Other long term (current) drug therapy
CPT/HCPCS: 36000; 36415; 74176; 80053; 81001; 82150; 83690; 83735; 85025; 96360; 99284; A9270-GY

== ENCOUNTER 2024-07-11 20:54 | Emergency (ER) | payer MEDICARE, SELFPAY ==
[2024-07-11] MEDS ORDERED: TYLENOL 325 MG ONE (21:31)
[2024-07-11] MEDS: TYLENOL 325 MG PO ONE (21:32)
--- NOTE | 2024-07-11 21:44 | ERPHSYRPT ---
- History of Present Illness Time Seen by Provider: 07/11/24 21:15 Source: patient Exam Limitations: no limitations Patient Subjective Stated Complaint: pt states she lost her balance and fell backward, hitting her head. denies loc. Triage Nursing Assessment: pt alert and oriented, answers questions approp. pt arrive per ambulance and transfers to stretcher with assist of 3, skin warm and dry. laceration to back of head, approx 4cm, with no active bleeding noted at this time. Physician History: 78-year-old female presents to our ED via EMS for evaluation of a laceration to the posterior scalp. Patient was at home. Patient went to stop a box from falling off a shelf. Patient overextended herself causing her self to fall backwards. Patient hit her head on a table. Patient is on Plavix. Patient now has a posterior scalp laceration measuring 4 cm. No other injuries reported. No LOC no neck pain. Cervical spine cleared clinically. Fall was mechanical and not associated with any neuro cardiovascular symptomology. No associated chest pain or shortness of breath. No nausea vomiting or diaphoresis. Patient otherwise feels well. She voices no other complaints or concerns at this time. Portions of this note were created with voice recognition technology. There may be grammatical, spelling, punctuation or sound alike errors Timing/Duration: today Severity: moderate Modifying Factors: Improves With: nothing Associated Symptoms: denies symptoms Allergies/Adverse Reactions: Sulfa (Sulfonamide Antibiotics) [Sulfa(Sulfonamide Antibiotics)] Allergy (Severe, Verified 07/11/24 20:57) Tightness of Throat Iodinated Contrast Media [IV Dye, Iodine Containing Contrast ] Allergy (Intermediate, Verified 07/11/24 20:57) Rash iodine Allergy (Intermediate, Verified 07/11/24 20:57) Rash Penicillins Allergy (Intermediate, Verified 07/11/24 20:57) Swelling codeine [Codeine] Allergy (Unknown, Verified 07/11/24 20:57) unknown, states "just told not to take it oxytetracycline [From Terramycin] Allergy (Unknown, Verified 07/11/24 20:57) oxytetracycline HCl [From Terramycin] Allergy (Unknown, Verified 07/11/24 20:57) Fish Containing Products Allergy (Verified 07/11/24 20:57) Home Medications: Gabapentin 300 mg PO TID 03/29/19 [History] Citalopram Hydrobromide 20 mg* [ceLEXa 20 MG] 40 mg PO DAILY 10/12/22 [History] Theophylline Anhydrous [Theophylline ER] 300 mg PO BID 10/12/22 [History] Aspirin EC 81 mg [Ecotrin 81 mg] 1 tab PO DAILY 06/08/23 [History] Atorvastatin Calcium [Lipitor] 1 tab PO DAILY 06/08/23 [History] Lisinopril 10 mg [Zestril 10 MG] 1 tab PO DAILY 06/08/23 [History] Albuterol Sulfate Mdi [ALBUTEROL/Proair Hfa MDI] 2 puff IH Q6HPRN PRN 03/16/24 [History] Aripiprazole 10 mg [Abilify 10 MG] 5 mg PO DAILY 03/16/24 [History] Ascorbic Acid 500 mg [Vitamin C 500 MG] 500 mg PO DAILY 03/16/24 [History] Cholecalciferol (Vitamin D3) [Vitamin D3] 2,000 units PO DAILY 03/16/24 [His tory] Clopidogrel Bisulfate [PLAVIX Tablet] 75 mg PO DAILY 03/16/24 [History] Cyanocobalamin 500 Mcg [Vitamin B-12 500 MCG] 1,000 mcg SL DAILY 03/16/24 [History] Insulin Lispro [Humalog Kwikpen U-100] 20 unit SQ BID 03/16/24 [History] Meclizine HCl 12.5 mg PO TID 03/16/24 [History] PANTOPRAZOLE 40 mg Tablet [Protonix 40MG Tablet] 40 mg PO DAILY 03/16/24 [History] Tramadol HCl 50 mg [Ultram 50 mg] 50 mg PO Q6HPRN PRN 03/16/24 [History] clonazePAM [Clonazepam] 0.5 mg PO BID 03/16/24 [History] Hx Tetanus, Diphtheria Vaccination/Date Given: Yes Hx Influenza Vaccination/Date Given: No Hx Pneumococcal Vaccination/Date Given: Yes Immunizations Up to Date: Yes Travel Risk - International Travel Have you traveled outside of the country in past 3 weeks: No - Emerging Infectious Disease Are you exhibiting symptoms associated with any current EIDs: No - Review of Systems Constitutional: No Symptoms, No Fever, No Chills Eyes: No Symptoms Ears, Nose, & Throat: No Symptoms Respiratory: No Symptoms, No Cough, No Dyspnea Cardiac: No Symptoms, No Chest Pain, No Edema, No Syncope Abdominal/Gastrointestinal: No Symptoms, No Abdominal Pain, No Nausea, No Vomiting, No Diarrhea Genitourinary Symptoms: No Symptoms, No Dysuria Musculoskeletal: No Symptoms, No Back Pain, No Neck Pain Skin: No Symptoms, No Rash Neurological: No Symptoms, No Dizziness, No Focal Weakness, No Sensory Changes Psychological: No Symptoms Endocrine: No Symptoms Hematologic/Lymphatic: No Symptoms Immunological/Allergic: No Symptoms All Other Systems: Reviewed and Negative - Past Medical History Pertinent Past Medical History: Yes Neurological History: No Pertinent History ENT History: Cataracts Cardiac History: High Cholesterol, Hypertension Respiratory History: COPD, Asthma Endocrine Medical History: Diabetes Type II Musculoskeletal History: Arthritis GI Medical History: GERD, Gallbladder Disease History: No Pertinent History Psycho-Social History: Anxiety, Depression Female Reproductive Disorders: No Pertinent History Other Medical History: DIAGNOSED WITH GIANG (LIVER PROBLEM). 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 - Past Surgical History Past Surgical History: Yes Neuro Surgical History: No Pertinent History Cardiac: No Pertinent History, Cardiac Catheterization Respiratory: No Pertinent History Gastrointestinal: Appendectomy, Bowel Surgery, Cholecystectomy Genitourinary: No Pertinent History Musculoskeletal: Orthopedic Surgery, Other Female Surgical History: Hysterectomy Other Surgical History: Right hip and femur surgery Significant Family History: no pertinent family hx - Social History Smoking Status: Never smoker Exposure to second hand smoke: No Drug Use: none Patient Lives Alone: No () - Social Determinants of Health Will the patient participate in the screening: Declined to provide Comment: per ems, pt has bed bugs and roaches at home - Nursing Vital Signs Nursing Vital Signs: Initial Vital Signs Pulse Rate 67 07/11/24 21:00 Respiratory Rate 16 07/11/24 21:00 Blood Pressure 164/86 07/11/24 21:00 O2 Sat by Pulse Oximetry 95 07/11/24 21:00 Pain Scale Pain Intensity 3 - Physical Exam General Appearance: no apparent distress, alert, other (4 cm laceration posterior scalp just to the left of midline) Eye Exam: PERRL/EOMI, eyes nml inspection Ears, Nose, Throat Exam: normal ENT inspection, TMs normal, pharynx normal, moist mucous membranes Neck Exam: normal inspection, non-tender, supple, full range of motion Respiratory Exam: normal breath sounds, lungs clear, airway intact, No respiratory distress Cardiovascular Exam: regular rate/rhythm, normal heart sounds, normal peripheral pulses Gastrointestinal/Abdomen Exam: soft, normal bowel sounds, No tenderness, No mass Back Exam: normal inspection, normal range of motion, No CVA tenderness, No vertebral tenderness Extremity Exam: normal inspection, normal range of motion, pelvis stable Neurologic Exam: alert, oriented x 3, cooperative, normal mood/affect, nml cerebellar function, nml station & gait, sensation nml, No motor deficits Skin Exam: normal color, warm, dry, No rash Lymphatic Exam: No adenopathy SpO2 Interpretation: normal SpO2: 94 O2 Delivery: Room Air Procedures - Laceration/Wound Repair Head Time of Procedure: 21:20 Wound Location: head Wound Length (cm): 4 Wound's Depth, Shape: superficial Wound Explored: clean Irrigated: Yes Hibiclens Prep: Yes Wound Debrided: No debridement indicated Wound Repaired With: [place] Number of Sutures: 5 Layer Closure?: No Sterile Dressing Applied?: Yes Splint Applied?: No Progress: Patient elected to have anthony placed without local anesthesia. Patient received oral analgesic. Patient tolerated procedure well. No intra or postprocedural complications. 07/11/24 21:45 - Course Nursing assessment & vital signs reviewed: Yes - CT Exams Head CT Interpretation: Tele-radiologist Report (Subdural hematoma. Scalp laceration, scalp hematoma, chronic ischemic changes) Ordered Tests: Active Orders 24 hr Category Date Time Status IV Insertion STAT Care 07/12/24 00:13 Active HEAD WITHOUT CONTRAST [CT] Stat Exams 07/11/24 21:03 Completed CBC W DIFF Stat Lab 07/11/24 23:57 Completed CMP Stat Lab 07/11/24 23:57 Completed PROTIME WITH INR Stat Lab 07/11/24 23:57 Completed PTT Stat Lab 07/11/24 23:57 Completed Medication Summary Discontinued Medications Generic Name Dose Route Start Last Admin Trade Name Freq PRN Reason Stop Dose Admin Acetaminophen 975 mg 07/11/24 21:09 07/11/24 21:32 Acetaminophen 325 Mg Tablet PO 07/11/24 21:10 975 mg STAT ONE Administration Acetaminophen Confirm 12/03/24 21:31 Acetaminophen 325 Mg Tablet Administered 07/11/24 21:32 Dose 975 mg .ROUTE .STK-MED ONE Lab/Rad Data: Laboratory Result Diagrams 07/11/24 23:57 07/11/24 23:57 Laboratory Results 07/11/24 07/11/24 07/11/24 Range/Units 23:57 23:57 23:57 WBC 11.3 H (3.98-10.04) x10^3/uL RBC 4.39 (3.93-5.22) x10^6/uL Hgb 12.5 (11.2-15.7) g/dL Hct 39.7 (34.1-44.9) % MCV 90.4 (79.4-94.8) fL MCH 28.5 (25.6-32.2) pg MCHC 31.5 L (32.2-35.5) g/dL RDW 13.8 (11.7-14.4) % Plt Count 194 (182-369) x10^3/uL MPV 9.8 (9.4-12.3) fL Gran % 70.3 (34.0-71.1) % Immature Gran % (Auto) 0.7 H (0.001-0.429) % Nucleat RBC Rel Count 0.0 (0.00-0.2) % Eos # (Auto) 0.64 H (0.04-0.36) x10^3/uL Immature Gran # (Auto) 0.08 H (0.001-0.031) x10^3u/L Absolute Lymphs (auto) 1.63 (1.18-3.74) x10^3/uL Absolute Monos (auto) 0.94 H (0.24-0.86) x10^3/uL Absolute Nucleated RBC 0.00 (0.00-0.012) x10^3u/L Lymphocytes % 14.4 L (19.3-51.7) % Monocytes % 8.3 (4.7-12.5) % Eosinophils % 5.7 (0.7-5.8) % Basophils % 0.6 (0.1-1.2) % Absolute Granulocytes 7.93 H (1.56-6.13) x10^3/uL Basophils # 0.07 (0.01-0.08) x10^3/uL PT 11.4 (9.4-12.5) SECONDS INR 1.05 (0.8-3.0) APTT 29.1 (25.1-36.5) SECONDS Sodium 138 (135-145) mmol/L Potassium 4.3 (3.5-5.1) mmol/L Chloride 96 L (98-107) mmol/L Carbon Dioxide 37 H (22-30) mmol/L Anion Gap 9.3 (5-15) MEQ/L BUN 22 H (7-17) mg/dL Creatinine 0.60 (0.52-1.04) mg/dL Estimated GFR 90.7 ML/MIN Glucose 85 (74-106) mg/dL Calcium 10.0 (8.4-10.2) mg/dL Total Bilirubin 0.90 (0.2-1.3) mg/dL AST 33 (14-36) U/L ALT 14 (0-35) U/L Alkaline Phosphatase 83 (38-126) U/L Serum Total Protein 6.6 (6.3-8.2) g/dL Albumin 3.7 (3.5-5.0) g/dL - Progress Progress: improved Progress Note: 78-year-old female presents to our ED for evaluation of a mechanical fall. Patient hit her head on a table. Upon arrival patient had a 4 cm posterior parietal scalp laceration. CT head showed a subdural hematoma. Images forwarded to Dr. Lane neurosurgery. Dr. Lane reviewed the images and agreed with radiologist that a subdural was present. He excepted patient as a transfer to [facility]. Plan of care discussed with patient. She agreed to transfer to [facility] for further evaluation and treatment. Laboratory workup obtained. Platelets within normal limits. Coags within normal limits. Vital stable. Patient neurologically intact. No focal or lateralizing symptomology. Laceration was repaired using 5 anthony. Patient will be transferred to [facility] for further evaluation and treatment. Dr. Lane excepted transfer at 11 PM Portions of this note were created with voice recognition technology. There may be grammatical, spelling, punctuation or sound alike errors Complexity of problem addressed is moderate acute complicated no critical care time. Complexity of data reviewed and analyzed is extensive. Test ordered chest reviewed results analyzed and correlated clinically with history and physical exam. Risk of complication and or risk of morbidity/mortality of patient management is high. Patient requires transfer to a higher level of care. Vital stable. Time spent to transfer patient approximately 20 minutes. Plan of care established for shared decision making. No social determinants of health present to impede follow-up. Portions of this note were created with voice recognition technology. There may be grammatical, spelling, punctuation or sound alike errors 07/12/24 01:51 Counseled pt/family regarding: diagnosis, need for follow-up, rad results - Departure Departure Disposition: Transfer Clinical Impression: Fall, Scalp laceration, Subdural hematoma Condition: Stable Critical Care Time: No Referrals: RENETTA EPSTEIN MD [Primary Care Provider] - Follow up/PCP as directed
--- NOTE | 2024-07-11 22:20 | XRAY ---
CLINICAL HISTORY: trauma COMPARISON: None. TECHNIQUE: An axial non-contrast CT scan of the brain was performed from the skull base to the high parietal region. One of the following dose-reduction techniques was utilized for this exam. Automated exposure control, adjustment of the mA and/or kV according to patient size, and use of iterative reconstruction. CT scan performed according to ALARA principles. FINDINGS: A small extra calvarial soft tissue hematoma in the high vertex in the left parietal region with emphysematous changes consistent with the history of laceration without underlying fracture. Hyperdensity is identified along the falx cerebral posteriorly extending up to the right tentorium cerebelli measuring approximately 3.3 mm in thickness suspicious for a subdural hematoma. A few tiny ill-defined [id number] areas are noted bilaterally in the subcortical and deep white matter, suggestive of microvascular ischemic changes. The ventricular system, cortical sulci, and basal cisterns are prominent and consistent with senile changes. Trujillo-white matter differentiation is maintained. No midline shifts or deformity. Normal CT appearance of the posterior fossa structures namely the cerebellar hemispheres, brainstem, and cerebellar peduncles. Intracranial atherosclerosis was identified. The bony structures in the skull base are unremarkable. There are no definite calvarium fractures. The scanned paranasal sinuses are clear. Mild fluid is identified in the left mastoid air cells IMPRESSION: 1. A small extra calvarial soft tissue hematoma in the high vertex in the left parietal region without underlying fracture. 2. Hyperdensity along the falx cerebral posteriorly extending up to the right tentorium cerebelli is suspicious for a subdural hematoma. Clinical correlation and follow-up is advised. 3. Microvascular white matter ischemic changes and senile changes. [facility] was called at [phone] at 09:10 PM [employer]ATION CLERK, 07/11/2024, and Nurse Dominga was informed regarding the presence of significant medical findings in the reports. Electronically Signed by: Lee Wong MD. (07/11/2024 22:16:33 EST)
[2024-07-12 00:23] LABS: Absolute Neutrophil Ct (ANC) 7.93 x10^3/uL (1.56-6.13); BASOPHIL % 0.6 % (0.1-1.2); Basophil (Absolute #) 0.07 x10^3/uL (0.01-0.08); Eosinophil % 5.7 % (0.7-5.8); Eosinophil (Absolute #) 0.64 x10^3/uL (0.04-0.36); Hematocrit 39.7 % (34.1-44.9); Hemoglobin 12.5 g/dL (11.2-15.7); IMMATURE GRAN # 0.08 x10^3u/L (0.001-0.031); IMMATURE GRAN % 0.7 % (0.001-0.429); Lymphocyte (Absolute #) 1.63 x10^3/uL (1.18-3.74); Lymphocytes % 14.4 % (19.3-51.7); Mean Cell Volume 90.4 fL (79.4-94.8); Mean Corpuscular Hemoglobin 28.5 pg (25.6-32.2); Mean Corpuscular Hgb Concent. 31.5 g/dL (32.2-35.5); Mean Platelet Volume 9.8 fL (9.4-12.3); Monocyte (Absolute #) 0.94 x10^3/uL (0.24-0.86); Monocytes % 8.3 % (4.7-12.5); Neutrophil % 70.3 % (34.0-71.1); Platelet Count 194 x10^3/uL (182-369); Red Blood Count 4.39 x10^6/uL (3.93-5.22); Red Cell Distribution Width 13.8 % (11.7-14.4); White Blood Count 11.3 x10^3/uL (3.98-10.04)
[2024-07-12 00:35] LABS: ALBUMIN 3.7 g/dL (3.5-5.0); BILIRUBIN,TOTAL 0.9 mg/dL (0.2-1.3); Creatinine 1 0.6 mg/dL (0.52-1.04); EST GLOMERULAR FILTRATION RATE 90.7 ML/MIN; Potassium 4.3 mmol/L (3.5-5.1); Total Protein 6.6 g/dL (6.3-8.2)
[2024-07-12 00:44] LABS: ANION GAP 9.3 MEQ/L (5-15)
[2024-07-12 01:00] LABS: INR 1.05 (0.8-3.0); PROTIME 11.4 SECONDS (9.4-12.5); PTT 29.1 SECONDS (25.1-36.5)
[2024-07-12 01:45] VITALS: BP 118/64; PULSE 64; RESP 15
[2024-07-12 01:56] VITALS: O2SAT 94
== END 2024-07-12 02:03 | disposition short-term general hospital (02) ==
LOC: ED 20:54
DX: S01.91XA Laceration without foreign body of unspecified part of head, initial encounter (principal); W19.XXXA Unspecified fall, initial encounter; Z79.01 Long term (current) use of anticoagulants; S06.5X0A Traumatic subdural hemorrhage without loss of consciousness, initial encounter
CPT/HCPCS: 12002; 36415; 70450; 80053; 85025; 85610; 85730; 99284; 99285; A9270-GY

== ENCOUNTER 2024-08-11 17:09 | Emergency (ER) | payer MEDICARE, SELFPAY ==
[2024-08-11 17:28] VITALS: RESP 20; TEMP 97.5
--- NOTE | 2024-08-11 17:49 | ERPHSYRPT ---
- History of Present Illness Time Seen by Provider: 08/11/24 17:40 Source: patient, family Exam Limitations: no limitations Patient Subjective Stated Complaint: PT states "I went to the dr about 4 weeks ago for cough and they told me to do my nebulizer 4 times a day and this cough is just getting worse and now I am congested too." Triage Nursing Assessment: Pt presented alert and oriented X 3, skin pwd. PT ambulates with assist of 1. Pt has intermittant cough. PT able to speak in clear full sentences. PT resting comfortably on the bed. Physician History: This is an 78-year-old white female patient that was brought to the emergency department by private vehicle accompanied by family/friend and is a patient of Dr. Epstein with a complaint of cough and congestion. Patient was seen by her primary care provider 4 weeks ago and told to increase her nebulizer treatments to 4 times a day. Her symptoms of cough and congestion are worse. Patient denies chest pain. She has not had a fever per her report. Patient has a history of hyperlipidemia, hypertension, COPD/asthma, diabetes, gastroesophageal reflux disease, anxiety/depression and arrhythmia (on Plavix) Timing/Duration: other (Symptoms for a month) Cough Quality/Degree: mild (Moderate), productive cough (Reviewed his sputum), sputum (Greenish) Possible Cause: occasional episodes Associated Symptoms: cough, muscle aches, nasal congestion, No fever, No chest pain/soreness, No shortness of breath Allergies/Adverse Reactions: Sulfa (Sulfonamide Antibiotics) [Sulfa(Sulfonamide Antibiotics)] Allergy (Severe, Verified 07/11/24 20:57) Tightness of Throat Iodinated Contrast Media [IV Dye, Iodine Containing Contrast ] Allergy (Intermediate, Verified 07/11/24 20:57) Rash iodine Allergy (Intermediate, Verified 07/11/24 20:57) Rash Penicillins Allergy (Intermediate, Verified 07/11/24 20:57) Swelling codeine [Codeine] Allergy (Unknown, Verified 07/11/24 20:57) unknown, states "just told not to take it oxytetracycline [From Terramycin] Allergy (Unknown, Verified 07/11/24 20:57) oxytetracycline HCl [From Terramycin] Allergy (Unknown, Verified 07/11/24 20:57) Fish Containing Products Allergy (Verified 07/11/24 20:57) Home Medications: Gabapentin 300 mg PO TID 03/29/19 [History] Citalopram Hydrobromide 20 mg* [ceLEXa 20 MG] 40 mg PO DAILY 10/12/22 [History] Theophylline Anhydrous [Theophylline ER] 300 mg PO BID 10/12/22 [History] Aspirin EC 81 mg [Ecotrin 81 mg] 1 tab PO DAILY 06/08/23 [History] Atorvastatin Calcium [Lipitor] 1 tab PO DAILY 06/08/23 [History] Lisinopril 10 mg [Zestril 10 MG] 1 tab PO DAILY 06/08/23 [History] Albuterol Sulfate Mdi [ALBUTEROL/Proair Hfa MDI] 2 puff IH Q6HPRN PRN 03/16/24 [History] Aripiprazole 10 mg [Abilify 10 MG] 5 mg PO DAILY 03/16/24 [History] Ascorbic Acid 500 mg [Vitamin C 500 MG] 500 mg PO DAILY 03/16/24 [History] Cholecalciferol (Vitamin D3) [Vitamin D3] 2,000 units PO DAILY 03/16/24 [History] Clopidogrel Bisulfate [PLAVIX Tablet] 75 mg PO DAILY 03/16/24 [History] Cyanocobalamin 500 Mcg [Vitamin B-12 500 MCG] 1,000 mcg SL DAILY 03/16/24 [History] Insulin Lispro [Humalog Kwikpen U-100] 20 unit SQ BID 03/16/24 [History] Meclizine HCl 12.5 mg PO TID 03/16/24 [History] PANTOPRAZOLE 40 mg Tablet [Protonix 40MG Tablet] 40 mg PO DAILY 03/16/24 [History] Tramadol HCl 50 mg [Ultram 50 mg] 50 mg PO Q6HPRN PRN 03/16/24 [History] clonazePAM [Clonazepam] 0.5 mg PO BID 03/16/24 [History] Hx Tetanus, Diphtheria Vaccination/Date Given: Yes Hx Influenza Vaccination/Date Given: No Hx Pneumococcal Vaccination/Date Given: Yes Immunizations Up to Date: No Travel Risk - International Travel Have you traveled outside of the country in past 3 weeks: No - Emerging Infectious Disease Are you exhibiting symptoms associated with any current EIDs: Yes Symptoms: Cough: New Onset - Review of Systems Constitutional: No Symptoms Eyes: No Symptoms Ears, Nose, & Throat: Nose Congestion Respiratory: Cough Cardiac: No Symptoms Abdominal/Gastrointestinal: No Symptoms Genitourinary Symptoms: No Symptoms Musculoskeletal: No Symptoms Skin: No Symptoms Neurological: No Symptoms Psychological: No Symptoms Endocrine: No Symptoms Hematologic/Lymphatic: No Symptoms Immunological/Allergic: No Symptoms All Other Systems: Reviewed and Negative - Past Medical History Pertinent Past Medical History: Yes Neurological History: No Pertinent History ENT History: Cataracts Cardiac History: High Cholesterol, Hypertension Respiratory History: COPD, Asthma Endocrine Medical History: Diabetes Type II Musculoskeletal History: Arthritis GI Medical History: GERD, Gallbladder Disease History: No Pertinent History Psycho-Social History: Anxiety, Depression Female Reproductive Disorders: No Pertinent History Other Medical History: DIAGNOSED WITH GIANG (LIVER PROBLEM). 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 - Past Surgical History Past Surgical History: Yes Neuro Surgical History: No Pertinent History Cardiac: No Pertinent History, Cardiac Catheterization Respiratory: No Pertinent History Gastrointestinal: Appendectomy, Bowel Surgery, Cholecystectomy Genitourinary: No Pertinent History Musculoskeletal: Orthopedic Surgery, Other Female Surgical History: Hysterectomy Other Surgical History: Right hip and femur surgery Significant Family History: no pertinent family hx - Social History Smoking Status: Never smoker Exposure to second hand smoke: No Drug Use: none Patient Lives Alone: No () - Social Determinants of Health Will the patient participate in the screening: Declined to provide Comment: per ems, pt has bed bugs and roaches at home - Nursing Vital Signs Nursing Vital Signs: Initial Vital Signs Temperature 97.5 F 08/11/24 17:24 Pulse Rate 64 08/11/24 17:24 Respiratory Rate 20 08/11/24 17:24 Blood Pressure 136/50 08/11/24 17:24 O2 Sat by Pulse Oximetry 100 08/11/24 17:24 Pain Scale Pain Intensity 0 - Physical Exam General Appearance: no apparent distress, alert, anxiety Eye Exam: PERRL/EOMI, eyes nml inspection Ears, Nose, Throat Exam: normal ENT inspection, moist mucous membranes Neck Exam: normal inspection, non-tender, supple, full range of motion Respiratory Exam: normal breath sounds, lungs clear, airway intact, No chest tenderness, No respiratory distress Cardiovascular Exam: regular rate/rhythm, normal heart sounds, normal peripheral pulses Gastrointestinal/Abdomen Exam: soft, normal bowel sounds, No tenderness Pelvic Exam: not done Rectal Exam: not done Back Exam: normal inspection, normal range of motion, No CVA tenderness, No vertebral tenderness Extremity Exam: normal inspection, normal range of motion, pelvis stable Neurologic Exam: alert, oriented x 3, cooperative, bricklayer tender II-XII nml as tested, normal mood/affect, sensation nml Skin Exam: normal color, warm, dry Lymphatic Exam: No adenopathy SpO2 Interpretation: normal SpO2: 98 O2 Delivery: Room Air - Course Nursing assessment & vital signs reviewed: Yes Ordered Tests: Active Orders 24 hr Category Date Time Status Regulatory Services Consultant STAT Care 08/11/24 17:51 Active EKG-ER Only STAT Care 08/11/24 17:50 Active IV Insertion STAT Care 08/11/24 17:50 Active Pulse Oximetry (ED) STAT Care 08/11/24 17:50 Active CHEST 1 VIEW (PORTABLE) Stat Exams 08/11/24 17:51 Taken BLOOD CULTURE Stat Lab 08/11/24 18:05 Received CBC W DIFF Stat Lab 08/11/24 18:05 Completed CMP Stat Lab 08/11/24 18:05 Completed CULTURE,SPUTUM Stat Lab 08/11/24 17:45 Received Lactic Acid Stat Lab 08/11/24 18:30 Completed MAGNESIUM Stat Lab 08/11/24 18:05 Completed MONO SCREEN Stat Lab 08/11/24 18:05 Completed NT PRO BNPII Stat Lab 08/11/24 18:05 Completed TROPONIN Q4H Lab 08/11/24 18:05 Completed TROPONIN Q4H Lab 08/11/24 22:00 Ordered TROPONIN Q4H Lab 08/12/24 02:00 Ordered Medication Summary Discontinued Medications Generic Name Dose Route Start Last Admin Trade Name Freq PRN Reason Stop Dose Admin Methylprednisolone Sodium 0 mg 08/11/24 18:42 08/11/24 18:51 Succinate 125 mg/ Sterile IV 08/11/24 18:43 125 mg Water 2 ml STAT ONE Administration Furosemide 40 mg 08/11/24 19:09 Furosemide 40 Mg/4 Ml Vial IV 08/11/24 19:10 STAT ONE Levofloxacin 500 mg 08/11/24 18:41 08/11/24 18:50 Levofloxacin 500 Mg Tablet PO 08/11/24 18:42 500 mg STAT ONE Administration Levofloxacin Confirm 08/11/24 18:48 Levofloxacin 500 Mg Tablet Administered 08/11/24 18:49 Dose 500 mg .ROUTE .[employer] Methylprednisolone Sodium Succinate Confirm 08/11/24 18:48 Methylprednis Sod Succ 125 Mg/2 Ml Vial Administered 08/11/24 18:49 Dose 125 mg .ROUTE .[employer] ONE Sterile Water Confirm 08/11/24 18:48 Water For Injection,Sterile 10 Ml Vial Administered 08/11/24 18:49 Dose 10 ml IJ .[employer] ONE Lab/Rad Data: Laboratory Result Diagrams 08/11/24 18:05 08/11/24 18:05 Laboratory Results 08/11/24 08/11/24 08/11/24 Range/Units 18:30 18:10 18:05 WBC (3.98-10.04) x10^3/uL RBC (3.93-5.22) x10^6/uL Hgb (11.2-15.7) g/dL Hct (34.1-44.9) % MCV (79.4-94.8) fL MCH (25.6-32.2) pg MCHC (32.2-35.5) g/dL RDW (11.7-14.4) % Plt Count (182-369) x10^3/uL MPV (9.4-12.3) fL Gran % (34.0-71.1) % Immature Gran % (Auto) (0.001-0.429) % Nucleat RBC Rel Count (0.00-0.2) % Eos # (Auto) (0.04-0.36) x10^3/uL Immature Gran # (Auto) (0.001-0.031) x10^3u/L Absolute Lymphs (auto) (1.18-3.74) x10^3/uL Absolute Monos (auto) (0.24-0.86) x10^3/uL Absolute Nucleated RBC (0.00-0.012) x10^3u/L Lymphocytes % (19.3-51.7) % Monocytes % (4.7-12.5) % Eosinophils % (0.7-5.8) % Basophils % (0.1-1.2) % Absolute Granulocytes (1.56-6.13) x10^3/uL Basophils # (0.01-0.08) x10^3/uL Sodium (135-145) mmol/L Potassium (3.5-5.1) mmol/L Chloride (98-107) mmol/L Carbon Dioxide (22-30) mmol/L Anion Gap (5-15) MEQ/L BUN (7-17) mg/dL Creatinine (0.52-1.04) mg/dL Estimated GFR ML/MIN Glucose (74-106) mg/dL Lactic Acid 1.2 (0.4-2.0) Calcium (8.4-10.2) mg/dL Magnesium (1.6-2.3) mg/dL Total Bilirubin (0.2-1.3) mg/dL AST (14-36) U/L ALT (0-35) U/L Alkaline Phosphatase (38-126) U/L Troponin I (0.000-0.033) ng/mL NT-Pro-B Natriuret Pep (<300) pg/mL Serum Total Protein (6.3-8.2) g/dL Albumin (3.5-5.0) g/dL Monoscreen NEGATIVE (NEGATIVE) Influenza Type A Ag NEGATIVE (NEGATIVE) Influenza Type B Ag NEGATIVE (NEGATIVE) RSV (PCR) NEGATIVE (NEGATIVE) SARS-CoV-2 (PCR) NEGATIVE (NEGATIVE) 08/11/24 08/11/24 08/11/24 Range/Units 18:05 18:05 18:05 WBC 16.1 H (3.98-10.04) x10^3/uL RBC 3.60 L (3.93-5.22) x10^6/uL Hgb 10.0 L (11.2-15.7) g/dL Hct 32.6 L (34.1-44.9) % MCV 90.6 (79.4-94.8) fL MCH 27.8 (25.6-32.2) pg MCHC 30.7 L (32.2-35.5) g/dL RDW 14.5 H (11.7-14.4) % Plt Count 246 (182-369) x10^3/uL MPV 8.5 L (9.4-12.3) fL Gran % 80.1 H (34.0-71.1) % Immature Gran % (Auto) 0.6 H (0.001-0.429) % Nucleat RBC Rel Count 0.0 (0.00-0.2) % Eos # (Auto) 0.31 (0.04-0.36) x10^3/uL Immature Gran # (Auto) 0.09 H (0.001-0.031) x10^3u/L Absolute Lymphs (auto) 1.71 (1.18-3.74) x10^3/uL Absolute Monos (auto) 1.05 H (0.24-0.86) x10^3/uL Absolute Nucleated RBC 0.00 (0.00-0.012) x10^3u/L Lymphocytes % 10.7 L (19.3-51.7) % Monocytes % 6.5 (4.7-12.5) % Eosinophils % 1.9 (0.7-5.8) % Basophils % 0.2 (0.1-1.2) % Absolute Granulocytes 12.85 H (1.56-6.13) x10^3/uL Basophils # 0.04 (0.01-0.08) x10^3/uL Sodium 139 (135-145) mmol/L Potassium 4.2 (3.5-5.1) mmol/L Chloride 98 (98-107) mmol/L Carbon Dioxide 37 H (22-30) mmol/L Anion Gap 8.2 (5-15) MEQ/L BUN 20 H (7-17) mg/dL Creatinine 0.70 (0.52-1.04) mg/dL Estimated GFR 87.4 ML/MIN Glucose 124 H (74-106) mg/dL Lactic Acid (0.4-2.0) Calcium 9.1 (8.4-10.2) mg/dL Magnesium 1.6 (1.6-2.3) mg/dL Total Bilirubin 0.50 (0.2-1.3) mg/dL AST 20 (14-36) U/L ALT 11 (0-35) U/L Alkaline Phosphatase 72 (38-126) U/L Troponin I < 0.012 (0.000-0.033) ng/mL NT-Pro-B Natriuret Pep 1080 (<300) pg/mL Serum Total Protein 5.9 L (6.3-8.2) g/dL Albumin 3.1 L (3.5-5.0) g/dL Monoscreen (NEGATIVE) Influenza Type A Ag (NEGATIVE) Influenza Type B Ag (NEGATIVE) RSV (PCR) (NEGATIVE) SARS-CoV-2 (PCR) (NEGATIVE) - Progress Progress: improved, re-examined Air Movement: good Progress Note: 08/11/24 18:16 My medical decision making and the assignment of moderate complexity to this patient's medical issue today is based on review of the patient's past medical history, review the patient's medication list, reviewed patient drug allergy list, history present illness and physical findings on examination. The workup in this patient includes placement of a intravenous line, CBC, CMP, twelve-lead EKG, BNP, troponin level, chest x-ray, viral swabs, monotest. Differential diagnosis includes but is not limited to viral illness, mononucleosis, pneumonia, CHF, COPD exacerbation, myocardial infarction, arrhyth amado 08/11/24 18:23 I interpreted the patient's preliminary chest x-ray report. There is right perihilar and left basilar infiltrates 08/11/24 19:12 I interpreted the patient's laboratory data results. The laboratory data results show patient with a leukocytosis and left shift. There also is elevated BNP suggestive of mild congestive heart failure. Will provide the patient with 40 mg of intravenous furosemide. Blood Culture(s) Obtained: Yes Antibiotics given: Yes Counseled pt/family regarding: lab results, diagnosis, need for follow-up, rad results Medical Desision Making - Independent Historian Additional History obtained from: Family - Diagnostic Testing Diagnostic test were ordered, analyzed, and reviewed by me: Yes Radiological Interpretation: Interpreted by me, Teleradiologist Report - Risk of complications The pt has a mod risk of morbidity or mortality based on: Need for prescription drug management - Departure Departure Disposition: Home Clinical Impression: Bilateral pneumonia Condition: Stable Critical Care Time: No Referrals: RENETTA EPSTEIN MD [Primary Care Provider] - Follow up/PCP as directed Additional Instructions: Continue your 4 times a day nebulizer treatments. Take your antibiotics and other medications as prescribed. Prescriptions: Levofloxacin [Levaquin 500 MG Tablet] 500 mg PO DAILY #7 tablet
[2024-08-11 18:08] VITALS: PULSE 66
[2024-08-11 18:15] LABS: Absolute Neutrophil Ct (ANC) 12.85 x10^3/uL (1.56-6.13); BASOPHIL % 0.2 % (0.1-1.2); Basophil (Absolute #) 0.04 x10^3/uL (0.01-0.08); Eosinophil % 1.9 % (0.7-5.8); Eosinophil (Absolute #) 0.31 x10^3/uL (0.04-0.36); Hematocrit 32.6 % (34.1-44.9); IMMATURE GRAN # 0.09 x10^3u/L (0.001-0.031); IMMATURE GRAN % 0.6 % (0.001-0.429); Lymphocyte (Absolute #) 1.71 x10^3/uL (1.18-3.74); Lymphocytes % 10.7 % (19.3-51.7); Mean Cell Volume 90.6 fL (79.4-94.8); Mean Corpuscular Hemoglobin 27.8 pg (25.6-32.2); Mean Corpuscular Hgb Concent. 30.7 g/dL (32.2-35.5); Mean Platelet Volume 8.5 fL (9.4-12.3); Monocyte (Absolute #) 1.05 x10^3/uL (0.24-0.86); Monocytes % 6.5 % (4.7-12.5); Neutrophil % 80.1 % (34.0-71.1); Platelet Count 246 x10^3/uL (182-369); Red Cell Distribution Width 14.5 % (11.7-14.4); White Blood Count 16.1 x10^3/uL (3.98-10.04)
[2024-08-11 18:17] VITALS: O2SAT 98
[2024-08-11 18:31] LABS: ALBUMIN 3.1 g/dL (3.5-5.0); BILIRUBIN,TOTAL 0.5 mg/dL (0.2-1.3); Calcium 9.1 mg/dL (8.4-10.2); Creatinine 1 0.7 mg/dL (0.52-1.04); EST GLOMERULAR FILTRATION RATE 87.4 ML/MIN; MAGNESIUM 1.6 mg/dL (1.6-2.3); Potassium 4.2 mmol/L (3.5-5.1); Total Protein 5.9 g/dL (6.3-8.2)
[2024-08-11 18:40] LABS: ANION GAP 8.2 MEQ/L (5-15)
[2024-08-11 18:45] LABS: NT PRO BNPII 1080 pg/mL (<300); TROPONIN < 0.012 ng/mL (0.000-0.033)
[2024-08-11] MEDS ORDERED: solu-MEDROL ONE (18:48)
[2024-08-11] MEDS ORDERED: Sterile H2O 10 ml IJ ONE (18:48)
[2024-08-11] MEDS ORDERED: Levofloxacin 500 MG Tablet ONE (18:48)
[2024-08-11] MEDS: Levofloxacin 500 MG Tablet PO ONE (18:50)
[2024-08-11] MEDS: solu-MEDROL 125 MG, Sterile H2O 10 ml 2 ML IV ONE (18:51)
[2024-08-11 18:55] LABS: INFLUENZA A NEGATIVE (NEGATIVE); INFLUENZA B NEGATIVE (NEGATIVE); RESPIRATORY SYNCTIAL VIRUS NEGATIVE (NEGATIVE); SARS-CoV-2 Xpert Express NEGATIVE (NEGATIVE)
[2024-08-11] MEDS ORDERED: Lasix 40 MG/4 ML ONE (19:33)
[2024-08-11] MEDS: Lasix 40 MG/4 ML IV ONE (19:35)
[2024-08-11 20:05] VITALS: BP 127/71
--- NOTE | 2024-08-12 08:43 | XRAY ---
Indication: Productive cough. Comparison: June 08, 2023 Portable chest demonstrates new mild bilateral mid to lower lung infiltrates/atelectasis. No consolidation/large effusion. Heart not enlarged. Bony thorax intact again with osteopenia and degenerative changes.
== END 2024-08-11 20:18 | disposition home or self-care (01) ==
LOC: ED 17:09
DX: J18.9 Pneumonia, unspecified organism (principal); R05.9 Cough, unspecified; E78.5 Hyperlipidemia, unspecified; I10 Essential (primary) hypertension; E11.9 Type 2 diabetes mellitus without complications; Z79.02 Long term (current) use of antithrombotics/antiplatelets; Z79.4 Long term (current) use of insulin; Z59.19 Other inadequate housing
CPT/HCPCS: 0241U; 36415; 71045; 80053; 83605; 83735; 83880; 84484; 85025; 86308; 87040; 87070; 87077; 87186; 93005; 93041; 94760; 96374; 96375; 99285; 99284; J1940; J2919; A9270-GY

== ENCOUNTER 2024-08-15 16:08 | Observation (INO) | payer MEDICARE, SELFPAY ==
--- NOTE | 2024-08-15 16:22 | ERPHSYRPT ---
- History of Present Illness Source: patient, family Exam Limitations: no limitations Timing/Duration: today Activities at Onset: none Severity of Dyspnea-Max: mild Severity of Dyspnea-Current: mild (Moderate to moderate) Possible Cause: occasional episodes Modifying Factors: Improves With: activity Associated Symptoms: cough, chest pain/discomfort, loss of appetite, productive cough Hx Tetanus, Diphtheria Vaccination/Date Given: Yes Hx Influenza Vaccination/Date Given: No Hx Pneumococcal Vaccination/Date Given: Yes <DEBI SINGER - Last Filed: 08/15/24 18:25> <TRU GRANT - Last Filed: 08/15/24 21:03> - History of Present Illness Time Seen by Provider: 08/15/24 16:22 Physician History: This is an 78-year-old white female patient was brought to the emergency depa rtment by ambulance service and is a patient of Dr. Epstein. Patient was recently seen in our emergency department, 08/11/2024, and diagnosed with pneumonia. Patient was on doxycycline. Patient was brought to the emergency department because of cough, shortness of breath, altered mental status. She arrives incontinent of stool and belching. Patient has a history of hyperlipidemia, hypertension, COPD/asthma, diabetes, gastroesophageal reflux disease, anxiety/depression and arrhythmia (patient on Plavix). (DEBI SINGER) Allergies/Adverse Reactions: Sulfa (Sulfonamide Antibiotics) [Sulfa(Sulfonamide Antibiotics)] Allergy (Severe, Verified 08/15/24 16:11) Tightness of Throat Iodinated Contrast Media [IV Dye, Iodine Containing Contrast ] Allergy (Intermediate, Verified 08/15/24 16:11) Rash iodine Allergy (Intermediate, Verified 08/15/24 16:11) Rash Penicillins Allergy (Intermediate, Verified 08/15/24 16:11) Swelling codeine [Codeine] Allergy (Unknown, Verified 08/15/24 16:11) unknown, states "just told not to take it oxytetracycline [From Terramycin] Allergy (Unknown, Verified 08/15/24 16:11) oxytetracycline HCl [From Terramycin] Allergy (Unknown, Verified 08/15/24 16:11) Fish Containing Products Allergy (Verified 08/15/24 16:11) Home Medications: Gabapentin 300 mg PO TID 03/29/19 [History] Citalopram Hydrobromide 20 mg* [ceLEXa 20 MG] 40 mg PO DAILY 10/12/22 [History] Theophylline Anhydrous [Theophylline ER] 300 mg PO BID 10/12/22 [History] Aspirin EC 81 mg [Ecotrin 81 mg] 1 tab PO DAILY 06/08/23 [History] Atorvastatin Calcium [Lipitor] 1 tab PO DAILY 06/08/23 [History] Lisinopril 10 mg [Zestril 10 MG] 1 tab PO DAILY 06/08/23 [History] Albuterol Sulfate Mdi [ALBUTEROL/Proair Hfa MDI] 2 puff IH Q6HPRN PRN 03/16/24 [History] Aripiprazole 10 mg [Abilify 10 MG] 5 mg PO DAILY 03/16/24 [History] Ascorbic Acid 500 mg [Vitamin C 500 MG] 500 mg PO DAILY 03/16/24 [History] Cholecalciferol (Vitamin D3) [Vitamin D3] 2,000 units PO DAILY 03/16/24 [History] Clopidogrel Bisulfate [PLAVIX Tablet] 75 mg PO DAILY 03/16/24 [History] Cyanocobalamin 500 Mcg [Vitamin B-12 500 MCG] 1,000 mcg SL DAILY 03/16/24 [History] Insulin Lispro [Humalog Kwikpen U-100] 20 unit SQ BID 03/16/24 [History] Meclizine HCl 12.5 mg PO TID 03/16/24 [History] PANTOPRAZOLE 40 mg Tablet [Protonix 40MG Tablet] 40 mg PO DAILY 03/16/24 [History] Tramadol HCl 50 mg [Ultram 50 mg] 50 mg PO Q6HPRN PRN 03/16/24 [History] clonazePAM [Clonazepam] 0.5 mg PO BID 03/16/24 [History] Travel Risk - International Travel Have you traveled outside of the country in past 3 weeks: No - Emerging Infectious Disease Are you exhibiting symptoms associated with any current EIDs: Yes Symptoms: Cough: New Onset <DEBI SINGER - Last Filed: 08/15/24 18:25> - Review of Systems Constitutional: Weakness Eyes: No Symptoms Ears, Nose, & Throat: No Symptoms Respiratory: Cough, Dyspnea Cardiac: No Symptoms Abdominal/Gastrointestinal: Diarrhea, Appetite Changes Genitourinary Symptoms: No Symptoms Musculoskeletal: No Symptoms Skin: No Symptoms Neurological: No Symptoms Psychological: No Symptoms Endocrine: No Symptoms Hematologic/Lymphatic: No Symptoms Immunological/Allergic: No Symptoms All Other Systems: Reviewed and Negative <DEBI SINGER - Last Filed: 08/15/24 18:25> - Past Medical History Pertinent Past Medical History: Yes Neurological History: No Pertinent History ENT History: Cataracts Cardiac History: High Cholesterol, Hypertension Respiratory History: COPD, Asthma Endocrine Medical History: Diabetes Type II Musculoskeletal History: Arthritis GI Medical History: GERD, Gallbladder Disease History: No Pertinent History Psycho-Social History: Anxiety, Depression Female Reproductive Disorders: No Pertinent History Other Medical History: DIAGNOSED WITH GIANG (LIVER PROBLEM). 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 - Past Surgical History Past Surgical History: Yes Neuro Surgical History: No Pertinent History Cardiac: No Pertinent History, Cardiac Catheterization Respiratory: No Pertinent History Gastrointestinal: Appendectomy, Bowel Surgery, Cholecystectomy Genitourinary: No Pertinent History Musculoskeletal: Orthopedic Surgery, Other Female Surgical History: Hysterectomy Other Surgical History: Right hip and femur surgery Significant Family History: no pertinent family hx - Social History Smoking Status: Never smoker Exposure to second hand smoke: No Drug Use: none Patient Lives Alone: No () - Social Determinants of Health Will the patient participate in the screening: Declined to provide Comment: per ems, pt has bed bugs and roaches at home <DEBI SINGER - Last Filed: 08/15/24 18:25> - Physical Exam General Appearance: mild distress, lethargy Eye Exam: PERRL/EOMI, eyes nml inspection Ears, Nose, Throat Exam: hearing grossly normal, normal ENT inspection, normal p harynx Neck Exam: normal inspection, non-tender, supple, full range of motion Respiratory Exam: respiratory distress (Mild), rhonchi (Bilateral), No chest tenderness Cardiovascular/Chest Exam: normal heart sounds, normal peripheral pulses Abdominal/Gastrointestinal Exam: soft, normal bowel sounds, tenderness Rectal Exam: not done Extremity Exam: non-tender, normal range of motion, normal inspection Neurologic Exam: confusion (Mildly confused), other (Lethargic) Skin Exam: normal color, warm, dry Lymphatic Exam: adenopathy SpO2 Interpretation: normal O2 Delivery: Room Air <DEBI SINGER - Last Filed: 08/15/24 18:25> - Nursing Vital Signs Nursing Vital Signs: Initial Vital Signs Blood Pressure 150/109 08/15/24 16:12 Pain Scale Pain Intensity 4 - Course Nursing assessment & vital signs reviewed: Yes <DEBI SINGER - Last Filed: 08/15/24 18:25> - Course EKG Interpreted by Me: RATE (60), Sinus Rhythm, NORMAL AXIS, NORMAL INTERVALS, NORMAL QRS - CT Exams Head CT Interpretation: Tele-radiologist Report (Previous small subdural resolved. Nonacute senile brain) Chest CT Interpretation: Tele-radiologist Report (Nonacute chest) Abdomen/Pelvis CT Interpretation: Tele-radiologist Report (Ileus versus enteritis. Diarrhea) <TRU GRANT - Last Filed: 08/15/24 21:03> Ordered Tests: Active Orders 24 hr Category Date Time Status Catheter-Mullins Perez STAT Care 08/15/24 16:57 Active IV Insertion STAT Care 08/15/24 16:57 Active ABDOMEN AND PELVIS W/0 CONTRAS [CT] Stat Exams 08/15/24 16:57 Taken CHEST WITHOUT CONTRAST [CT] Stat Exams 08/15/24 16:58 Taken HEAD WITHOUT CONTRAST [CT] Stat Exams 08/15/24 18:23 Taken ABG [ARTERIAL BLOOD GASES] Stat Lab 08/15/24 16:22 Completed AMYLASE Stat Lab 08/15/24 18:10 Completed BLOOD CULTURE Stat Lab 08/15/24 18:18 Received CBC W DIFF Stat Lab 08/15/24 18:10 Completed CMP Stat Lab 08/15/24 18:10 Completed CULTURE,URINE Stat Lab 08/15/24 Received LIPASE Stat Lab 08/15/24 18:10 Completed Lactic Acid Stat Lab 08/15/24 17:04 Completed Manual Differential NC Stat Lab 08/15/24 18:10 Completed UA W/RFX UR CULTURE Stat Lab 08/15/24 20:05 Completed Transfer Order Routine Transfer 08/15/24 Ordered Medication Summary Generic Name Dose Route Start Last Admin Trade Name Freq PRN Reason Stop Dose Admin Sodium Chloride 1,000 mls @ 100 mls/hr 08/15/24 17:00 01/07/25 17:24 Sodium Chloride 0.9% 1000 Ml IV 09/14/24 16:59 100 mls/hr .Q10H SONAL Administration Discontinued Medications Generic Name Dose Route Start Last Admin Trade Name Isatu PRN Reason Stop Dose Admin Ondansetron HCl 4 mg 08/15/24 17:04 08/15/24 17:27 Ondansetron Hcl 4 Mg/2 Ml Vial IV 08/15/24 17:05 4 mg STAT ONE Administration Ondansetron HCl Confirm 08/15/24 17:22 Ondansetron Hcl 4 Mg/2 Ml Vial Administered 08/15/24 17:23 Dose 4 mg .ROUTE .STK-MED ONE Pantoprazole Sodium 40 mg 08/15/24 20:50 08/15/24 20:59 Pantoprazole 40 Mg Vial IV 08/15/24 20:51 40 mg STAT ONE Administration Pantoprazole Sodium Confirm 08/15/24 20:55 Pantoprazole 40 Mg Vial Administered 08/15/24 20:56 Dose 40 mg IV .STK-MED ONE Lab/Rad Data: Laboratory Result Diagrams 08/15/24 18:10 08/15/24 18:10 Laboratory Results 08/15/24 08/15/24 08/15/24 Range/Units 20:05 18:10 18:10 WBC 36.8 H* (3.98-10.04) x10^3/uL RBC 3.94 (3.93-5.22) x10^6/uL Hgb 10.9 L (11.2-15.7) g/dL Hct 36.4 (34.1-44.9) % MCV 92.4 (79.4-94.8) fL MCH 27.7 (25.6-32.2) pg MCHC 29.9 L (32.2-35.5) g/dL RDW 14.4 (11.7-14.4) % Plt Count 263 (182-369) x10^3/uL MPV 9.1 L (9.4-12.3) fL Segmented Neutrophils 89 H (34.0-71.1) % Band Neutrophils 4 H (0.0-2.0) % Lymphocytes (Manual) 1 L (19.3-51.7) % Monocytes (Manual) 6 (4.7-12.5) % Hypochromia 2+ Platelet Estimate NORMAL (NORMAL) RBC Morphology ABNORMAL Puncture Site pCO2 (35-45) mmHg pO2 (75-100) mmHg Base Excess (-2.0-2.0) O2 Saturation (94-100) g/dF ABG pH (7.35-7.45) ABG HCO3 (22-28) ABG O2 Sat (Measured) (95-100) % Kirk Test A-a Gradient a/A Ratio Hemoglobin Carboxyhemoglobin (0.0-6.9) % THgb Methemoglobin (1.4-1.5) % Potassium 4.9 (3.5-5.1) Temperature C POC O2 Flow Rate % Sodium 137 (135-145) mmol/L Chloride 94 L (98-107) mmol/L Carbon Dioxide 36 H (22-30) mmol/L Anion Gap 11.9 (5-15) MEQ/L BUN 38 H (7-17) mg/dL Creatinine 0.74 (0.52-1.04) mg/dL Estimated GFR 81.7 ML/MIN Glucose 163 H (74-106) mg/dL Lactic Acid (0.4-2.0) Calcium 9.1 (8.4-10.2) mg/dL Total Bilirubin 1.50 H (0.2-1.3) mg/dL AST 40 H (14-36) U/L ALT 19 (0-35) U/L Alkaline Phosphatase 129 H (38-126) U/L Serum Total Protein 6.5 (6.3-8.2) g/dL Albumin 3.5 (3.5-5.0) g/dL Amylase 36 (30-110) U/L Lipase 20 L (23-300) U/L Urine Color Dark Yellow A (Yellow) Urine Appearance Clear (Clear) Urine pH 6.0 (4.6-8.0) Ur Specific Sheldon 1.015 (1.005-1.030) Urine Protein Negative (Negative) Urine Glucose (UA) Negative (Negative) mg/dL Urine Ketones Negative (Negative) Urine Blood Negative (Negative) Urine Nitrite Negative (Negative) Urine Bilirubin Negative (Negative) Urine Urobilinogen 2.0 A (0.2) mg/dL Ur Leukocyte Esterase Negative (Negative) U Hyaline Cast (Auto) 0-2 (0-2) /LPF Urine Microscopic RBC 0-2 (0-5) /HPF Urine Microscopic WBC 0-2 (0-5) /HPF Ur Epithelial Cells Few (None Seen) /HPF Urine Bacteria Rare A (None Seen) /HPF Urine Yeast (Budding) Rare A (None Seen) /HPF Urine Culture Reflexed ORDERED SEPARATELY (NO) C. difficile Screen (NEGATIVE) C.difficile [id number] (NEGATIVE) 08/15/24 08/15/24 08/15/24 Range/Units 17:42 17:04 16:22 WBC (3.98-10.04) x10^3/uL RBC (3.93-5.22) x10^6/uL Hgb (11.2-15.7) g/dL Hct (34.1-44.9) % MCV (79.4-94.8) fL MCH (25.6-32.2) pg MCHC (32.2-35.5) g/dL RDW (11.7-14.4) % Plt Count (182-369) x10^3/uL MPV (9.4-12.3) fL Segmented Neutrophils (34.0-71.1) % Band Neutrophils (0.0-2.0) % Lymphocytes (Manual) (19.3-51.7) % Monocytes (Manual) (4.7-12.5) % Hypochromia Platelet Estimate (NORMAL) RBC Morphology Puncture Site RIGHT BRACHIAL pCO2 66 H* (35-45) mmHg pO2 170 H* (75-100) mmHg Base Excess 18.9 H (-2.0-2.0) O2 Saturation 96.8 (94-100) g/dF ABG pH 7.45 (7.35-7.45) ABG HCO3 45.9 H* (22-28) ABG O2 Sat (Measured) 100.0 (95-100) % Kirk Test NOT APPLICABLE A-a Gradient 461 a/A Ratio 0.27 Hemoglobin 10.7 Carboxyhemoglobin 2.1 (0.0-6.9) % THgb Methemoglobin 1.0 L (1.4-1.5) % Potassium 5.1 (3.5-5.1) Temperature 37.0 C POC O2 Flow Rate 100 % Sodium (135-145) mmol/L Chloride (98-107) mmol/L Carbon Dioxide (22-30) mmol/L Anion Gap (5-15) MEQ/L BUN (7-17) mg/dL Creatinine (0.52-1.04) mg/dL Estimated GFR ML/MIN Glucose (74-106) mg/dL Lactic Acid 1.2 (0.4-2.0) Calcium (8.4-10.2) mg/dL Total Bilirubin (0.2-1.3) mg/dL AST (14-36) U/L ALT (0-35) U/L Alkaline Phosphatase (38-126) U/L Serum Total Protein (6.3-8.2) g/dL Albumin (3.5-5.0) g/dL Amylase (30-110) U/L Lipase (23-300) U/L Urine Color (Yellow) Urine Appearance (Clear) Urine pH (4.6-8.0) Ur Specific Sheldon (1.005-1.030) Urine Protein (Negative) Urine Glucose (UA) (Negative) mg/dL Urine Ketones (Negative) Urine Blood (Negative) Urine Nitrite (Negative) Urine Bilirubin (Negative) Urine Urobilinogen (0.2) mg/dL Ur Leukocyte Esterase (Negative) U Hyaline Cast (Auto) (0-2) /LPF Urine Microscopic RBC (0-5) /HPF Urine Microscopic WBC (0-5) /HPF Ur Epithelial Cells (None Seen) /HPF Urine Bacteria (None Seen) /HPF Urine Yeast (Budding) (None Seen) /HPF Urine Culture Reflexed (NO) C. difficile Screen NEGATIVE (NEGATIVE) C.difficile [id number] PRESUMPTIVE NEGATIVE (NEGATIVE) - Progress Progress: re-examined Air Movement: fair Blood Culture(s) Obtained: Yes <DEBI SINGER - Last Filed: 08/15/24 18:25> <TRU GRANT - Last Filed: 08/15/24 21:03> - Progress Progress Note: 08/15/24 16:56 My medical decision making and the assignment of moderate to high complexity of this patient's medical issue today is based on review of the patient's past medical history, review the patient's medication list, reviewed patient drug allergy list, history present illness and physical findings on examination. The workup in this patient includes placement of a intravenous line, infusion of low rate intravenous fluid, RT evaluation and treatment, ABG, CBC, CMP, amylase, lipase, CT scan of the chest and CT scan of the abdomen pelvis both without contrast, placement of Perez catheter, urinalysis, viral swabs, blood cultures 08/15/24 18:25 I am transferring care to Dr. Tru Grant at shift change. I reviewed the patient history, presenting complaint, and workup results that he will follow-up on and make final disposition. (DEBI SINGER) Patient endorsed Dr. Grant at approximately [address] Grant advised follow-up on pending imaging studies. CT head negative for acute intracranial pathology. CT chest negative for acute pathology. CT abdomen pelvis reveals ileus versus enteritis. Patient appears to be somewhat dehydrated secondary to the diarrhea. Patient has a high white blood cell count of 36.8. In light of these findings and patient's weakness patient will be admitted for further evaluation and treatment. Case discussed with hospitalist Dr. Palma who accepts admission to observation. Plan of care discussed with patient and daughter. They agree to admission at [facility][1] for further evaluation and treatment. Patient complained of burning sensation in her abdomen. Protonix ordered. Patient appears to be well. She is conversant well-appearing and in no acute distress at this time. Portions of this note were created with voice recognition technology. There may be grammatical, spelling, punctuation or sound alike errors 08/15/24 21:01 (TRU GRANT) - Departure Departure Disposition: Observation Critical Care Time: No <DEBI SINGER - Last Filed: 08/15/24 18:25> <TRU GRANT - Last Filed: 08/15/24 21:03> - Departure Clinical Impression: Shortness of breath, Cough, Vomiting and diarrhea Condition: Stable Referrals: RENETTA EPSTEIN MD [Primary Care Provider] - Follow up/PCP as directed
[2024-08-15 16:23] LABS: A-aADO2 461; ABG HEMOGLOBIN 10.7; ABG POTASSIUM 5.1 (3.5-5.1); ARTERIAL BLOOD GAS BASE EXCESS 18.9 (-2.0-2.0); ARTERIAL BLOOD GAS FIO2 100 %; ARTERIAL BLOOD GAS PO2 170 mmHg (75-100); ARTERIAL BLOOD GAS pH 7.45 (7.35-7.45); CARBOXYHEMOGLOBIN 2.1 % THgb (0.0-6.9); HCO3- 45.9 (22-28); HGB O2 SAT 96.8 g/dF (94-100); paO2 pAO1 0.27
[2024-08-15 16:24] LABS: ABG SITE RIGHT BRACHIAL; ARTERIAL BLOOD GAS PCO2 66 mmHg (35-45)
[2024-08-15] MEDS ORDERED: Zofran 4 MG/2 ML VIAL ONE (17:22)
[2024-08-15] MEDS: Sodium Chloride 0.9% 1000 ML 1,000 ML IV SCH (17:24)
[2024-08-15] MEDS: Zofran 4 MG/2 ML VIAL IV ONE (17:27)
[2024-08-15 18:26] LABS: Hematocrit 36.4 % (34.1-44.9); Hemoglobin 10.9 g/dL (11.2-15.7); Mean Cell Volume 92.4 fL (79.4-94.8); Mean Corpuscular Hemoglobin 27.7 pg (25.6-32.2); Mean Corpuscular Hgb Concent. 29.9 g/dL (32.2-35.5); Mean Platelet Volume 9.1 fL (9.4-12.3); Platelet Count 263 x10^3/uL (182-369); Red Blood Count 3.94 x10^6/uL (3.93-5.22); Red Cell Distribution Width 14.4 % (11.7-14.4)
[2024-08-15 18:42] LABS: ALBUMIN 3.5 g/dL (3.5-5.0); BILIRUBIN,TOTAL 1.5 mg/dL (0.2-1.3); Calcium 9.1 mg/dL (8.4-10.2); Creatinine 1 0.74 mg/dL (0.52-1.04); EST GLOMERULAR FILTRATION RATE 81.7 ML/MIN; Potassium 4.9 mmol/L (3.5-5.1); Total Protein 6.5 g/dL (6.3-8.2)
[2024-08-15 18:52] LABS: ANION GAP 11.9 MEQ/L (5-15)
[2024-08-15 18:55] LABS: White Blood Count 36.8 x10^3/uL (3.98-10.04)
[2024-08-15 19:16] LABS: 027 TOX PROD PRESUMPTIVE NEGATIVE (NEGATIVE); TOXIGENIC C. DIFF ORG NEGATIVE (NEGATIVE)
[2024-08-15 19:48] LABS: BAND 4 % (0.0-2.0); Hypochromia 2+; Lymphocytes 1 % (19.3-51.7); Monocyte 6 % (4.7-12.5); Neutrophils 89 % (34.0-71.1); Total Cells Counted 100
[2024-08-15 19:49] LABS: Platelet Estimate NORMAL (NORMAL)
[2024-08-15 20:33] LABS: Appearance Clear (Clear); Bilirubin Negative (Negative); Blood Negative (Negative); Glucose, Urine Negative (Negative); Ketones Negative (Negative); Leukocyte Esterase Negative (Negative); Nitrite Negative (Negative); Protein,Urine Dip Negative (Negative); RBC 0-2 /HPF (0-5); Specific Gravity 1.015 (1.005-1.030); WBC 0-2 /HPF (0-5)
[2024-08-15 20:34] LABS: Bacteria Rare /HPF (None Seen); Budding Yeast Rare /HPF (None Seen); Epithelial Cells Few /HPF (None Seen); Hyaline Casts 0-2 /LPF (0-2)
[2024-08-15] MEDS ORDERED: PROTONIX 40 MG IV IV ONE (20:55)
[2024-08-15] MEDS: PROTONIX 40 MG IV IV ONE (20:59)
[2024-08-15] MEDS ORDERED: MORPHINE SULFATE 2 MG INJ ONE (22:19)
[2024-08-15] MEDS ORDERED: IMODIUM 2 MG PO PRN (23:19)
[2024-08-16] MEDS: Zofran 4 MG/2 ML VIAL IV PRN (00:09)
[2024-08-16] MEDS: TORAdol 30 mg Injection IV ONE ×2 (00:09→02:56)
[2024-08-16] MEDS ORDERED: NON-FORMULARY ITEM (Albuterol Sulfate Mdi*** 8.5 GM Hfa.Aer.Ad) IH PRN (02:44)
--- NOTE | 2024-08-16 03:56 | PCM.HP ---
History of Present Illness - Chief Complaint Chief Complaint: Diarrhea Date: 08/15/24 History of Present Illness: 78-year-old with a history of CAD, depression, COPD on home oxygen, hypertension, and GERD, who presents with diarrhea and abdominal pain. Patient initially presented 4 days ago with cough and dyspnea, was diagnosed with pneumonia, and discharged home on Levaquin. However, patient continues to feel poorly, with progressive weakness not relieved by antibiotics or nebulizer treatment. Daughter noticed the patient appeared to be more lethargic and confused today. She also fell on Wednesday and on Wednesday prior to admission, although no trauma, no loss of consciousness. In the ED, she continued to have diarrhea, and developed nausea and vomiting as well. Patient denies any fever or sick contacts. No dyspnea today. Cough is generally improved. - Review of Systems All Other Systems: Reviewed and Negative Medications & Allergies Home Medications: Home Medication List Gabapentin 300 mg PO TID 03/29/19 [History Confirmed 06/03/24] Citalopram Hydrobromide 20 mg* [ceLEXa 20 MG] 40 mg PO DAILY 10/12/22 [History Confirmed 06/03/24] Aspirin EC 81 mg [Ecotrin 81 mg] 1 tab PO DAILY 06/08/23 [History Confirmed 08/15/24] Atorvastatin Calcium [Lipitor] 1 tab PO DAILY 06/08/23 [History Confirmed 08/15/24] Lisinopril 10 mg [Zestril 10 MG] 1 tab PO DAILY 06/08/23 [History Confirmed 08/15/24] Albuterol Sulfate Mdi [ALBUTEROL/Proair Hfa MDI] 2 puff IH Q6HPRN PRN 03/16/24 [History Confirmed 08/15/24] Ascorbic Acid 500 mg [Vitamin C 500 MG] 500 mg PO DAILY 03/16/24 [History Confirmed 08/15/24] Meclizine HCl 12.5 mg PO TID 03/16/24 [History Confirmed 06/03/24] PANTOPRAZOLE 40 mg Tablet [Protonix 40MG Tablet] 40 mg PO DAILY 03/16/24 [History Confirmed 08/15/24] clonazePAM [Clonazepam] 0.5 mg PO BID 03/16/24 [History Confirmed 08/15/24] Levofloxacin [Levaquin 500 MG Tablet] 500 mg PO DAILY #7 tablet 08/11/24 [Rx Confirmed 08/15/24] Allergies/Adverse Reactions: Allergies Allergy/AdvReac Type Severity Reaction Status Date / Time Sulfa (Sulfonamide Allergy Severe Tightness Verified 08/15/24 16:11 Antibiotics) of Throat [Sulfa(Sulfonamide Antibiotics)] Iodinated Contrast Media Allergy Intermediate Rash Verified 08/15/24 16:11 [IV Dye, Iodine Containing Contrast ] iodine Allergy Intermediate Rash Verified 08/15/24 16:11 Penicillins Allergy Intermediate Swelling Verified 08/15/24 16:11 codeine [Codeine] Allergy Unknown Verified 08/15/24 16:11 oxytetracycline Allergy Unknown Verified 08/15/24 16:11 [From Terramycin] oxytetracycline HCl Allergy Unknown Verified 08/15/24 16:11 [From Terramycin] Fish Containing Products Allergy Verified 08/15/24 16:11 - Past Medical History Past Medical History: Yes Neurological History: No Pertinent History ENT History: Cataracts Cardiac History: High Cholesterol, Hypertension Respiratory History: COPD, Asthma Endocrine Medical History: Diabetes Type II Musculoskelatal History: Arthritis GI Medical History: GERD, Gallbladder Disease History: No Pertinent History Pyscho-Social History: Anxiety, Depression Reproductive Disorders: No Pertinent History Comment: DIAGNOSED WITH GIANG (LIVER PROBLEM). 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 - Past Surgical History Past Surgical History: Yes Neuro Surgical History: No Pertinent History Cardiac History: No Pertinent History, Cardiac Catheterization Respiratory Surgery: No Pertinent History GI Surgical History: Appendectomy, Bowel Surgery, Cholecystectomy Genitourinary Surgical Hx: No Pertinent History Musculskeletal Surgical Hx: Orthopedic Surgery, Other Female Surgical History: Hysterectomy Other Surgical History: Right hip and femur surgery Significant Family History: no pertinent family hx - Social History Smoking Status: Never smoker Exposure to second hand smoke: No Alcohol: None Drug Use: none - Social Determinants of Health Will the patient participate in the screening: Declined to provide Do you worry about a steady place to live?: No In the past 12 months,have you had to go without utilities?: No Have you or anyone in your house had to go without enough: No Transportation Issues: No Has anyone in your support network made you feel unsafe?: No Does the patient want assistance with any of the above?: No Comment: per ems, pt has bed bugs and roaches at home - Physical Exam Vital Signs: Vital Signs - 24 hr Temp Pulse Resp BP BP Pulse Ox 08/16/24 00:00 97.9 F 67 18 121/45 92 L 08/15/24 23:59 92 L 08/15/24 23:31 97.9 F 67 18 121/45 92 L 08/15/24 22:13 92 L 08/15/24 22:01 67 18 118/43 97 08/15/24 21:30 66 19 90/57 08/15/24 21:01 64 15 106/69 96 08/15/24 20:30 61 25 H 115/60 97 08/15/24 20:00 61 18 116/63 08/15/24 19:30 60 22 105/44 08/15/24 19:21 60 20 103/54 08/15/24 19:01 62 18 126/59 99 08/15/24 18:41 60 25 H 113/47 08/15/24 18:31 60 23 76/55 08/15/24 18:00 54 L 18 107/43 08/15/24 17:55 55 L 16 100/36 99 08/15/24 17:52 57 L 15 08/15/24 17:30 57 L 16 08/15/24 17:20 58 L 17 08/15/24 17:19 58 L 16 08/15/24 16:30 59 L 16 92/40 99 08/15/24 16:19 97 F 61 19 109/49 100 08/15/24 16:12 150/109 General Appearance: no apparent distress Neurologic Exam: alert, oriented x 3, slurred speech Eye Exam: eyes nml inspection, No scleral icterus Ears, Nose, Throat Exam: normal ENT inspection, dry mucous membranes Neck Exam: supple, full range of motion Respiratory Exam: normal breath sounds, other (On 2 L oxygen by nasal cannula), No respiratory distress, No accessory muscle use Cardiovascular Exam: regular rate/rhythm, normal heart sounds, No edema Gastrointestinal/Abdomen Exam: No tenderness, No distention Back Exam: normal range of motion Extremity Exam: normal range of motion, No joint swelling Skin Exam: normal color, No rash Wound Assessment: Skin/Wound Assessment Wound/Incision Assessment Start: 08/15/24 23:51 Text: Status: Active Freq: Q6H Protocol: Document 08/15/24 23:51 KX (Rec: 08/16/24 00:00 KX [id number]) Wound Photo Photo Taken No Comment: no wound Results - Labs Lab/Micro Results: Lab Results-Last 24 Hours 08/15/24 08/15/24 08/15/24 Range/Units 16:22 17:04 17:42 WBC (3.98-10.04) x10^3/uL RBC (3.93-5.22) x10^6/uL Hgb (11.2-15.7) g/dL Hct (34.1-44.9) % MCV (79.4-94.8) fL MCH (25.6-32.2) pg MCHC (32.2-35.5) g/dL RDW (11.7-14.4) % Plt Count (182-369) x10^3/uL MPV (9.4-12.3) fL Segmented Neutrophils (34.0-71.1) % Band Neutrophils (0.0-2.0) % Lymphocytes (Manual) (19.3-51.7) % Monocytes (Manual) (4.7-12.5) % Hypochromia Platelet Estimate (NORMAL) RBC Morphology Puncture Site RIGHT BRACHIAL pCO2 66 H* (35-45) mmHg pO2 170 H* (75-100) mmHg Base Excess 18.9 H (-2.0-2.0) O2 Saturation 96.8 (94-100) g/dF ABG pH 7.45 (7.35-7.45) ABG HCO3 45.9 H* (22-28) ABG O2 Sat (Measured) 100.0 (95-100) % Kirk Test NOT APPLICABLE A-a Gradient 461 a/A Ratio 0.27 Hemoglobin 10.7 Carboxyhemoglobin 2.1 (0.0-6.9) % THgb Methemoglobin 1.0 L (1.4-1.5) % Potassium 5.1 (3.5-5.1) Temperature 37.0 C POC O2 Flow Rate 100 % Sodium (135-145) mmol/L Chloride (98-107) mmol/L Carbon Dioxide (22-30) mmol/L Anion Gap (5-15) MEQ/L BUN (7-17) mg/dL Creatinine (0.52-1.04) mg/dL Estimated GFR ML/MIN Glucose (74-106) mg/dL Lactic Acid 1.2 (0.4-2.0) Calcium (8.4-10.2) mg/dL Total Bilirubin (0.2-1.3) mg/dL AST (14-36) U/L ALT (0-35) U/L Alkaline Phosphatase (38-126) U/L Serum Total Protein (6.3-8.2) g/dL Albumin (3.5-5.0) g/dL Amylase (30-110) U/L Lipase (23-300) U/L Urine Color (Yellow) Urine Appearance (Clear) Urine pH (4.6-8.0) Ur Specific [place] (1.005-1.030) Urine Protein (Negative) Urine Glucose (UA) (Negative) mg/dL Urine Ketones (Negative) Urine Blood (Negative) Urine Nitrite (Negative) Urine Bilirubin (Negative) Urine Urobilinogen (0.2) mg/dL Ur Leukocyte Esterase (Negative) U Hyaline Cast (Auto) (0-2) /LPF Urine Microscopic RBC (0-5) /HPF Urine Microscopic WBC (0-5) /HPF Ur Epithelial Cells (None Seen) /HPF Urine Bacteria (None Seen) /HPF Urine Yeast (Budding) (None Seen) /HPF Urine Culture Reflexed (NO) C. difficile Screen NEGATIVE (NEGATIVE) C.difficile 027-NAP1-B1 PRESUMPTIVE NEGATIVE (NEGATIVE) 08/15/24 08/15/24 08/15/24 Range/Units 18:10 18:10 20:05 WBC 36.8 H* (3.98-10.04) x10^3/uL RBC 3.94 (3.93-5.22) x10^6/uL Hgb 10.9 L (11.2-15.7) g/dL Hct 36.4 (34.1-44.9) % MCV 92.4 (79.4-94.8) fL MCH 27.7 (25.6-32.2) pg MCHC 29.9 L (32.2-35.5) g/dL RDW 14.4 (11.7-14.4) % Plt Count 263 (182-369) x10^3/uL MPV 9.1 L (9.4-12.3) fL Segmented Neutrophils 89 H (34.0-71.1) % Band Neutrophils 4 H (0.0-2.0) % Lymphocytes (Manual) 1 L (19.3-51.7) % Monocytes (Manual) 6 (4.7-12.5) % Hypochromia 2+ Platelet Estimate NORMAL (NORMAL) RBC Morphology ABNORMAL Puncture Site pCO2 (35-45) mmHg pO2 (75-100) mmHg Base Excess (-2.0-2.0) O2 Saturation (94-100) g/dF ABG pH (7.35-7.45) ABG HCO3 (22-28) ABG O2 Sat (Measured) (95-100) % Kirk Test A-a Gradient a/A Ratio Hemoglobin Carboxyhemoglobin (0.0-6.9) % THgb Methemoglobin (1.4-1.5) % Potassium 4.9 (3.5-5.1) Temperature C POC O2 Flow Rate % Sodium 137 (135-145) mmol/L Chloride 94 L (98-107) mmol/L Carbon Dioxide 36 H (22-30) mmol/L Anion Gap 11.9 (5-15) MEQ/L BUN 38 H (7-17) mg/dL Creatinine 0.74 (0.52-1.04) mg/dL Estimated GFR 81.7 ML/MIN Glucose 163 H (74-106) mg/dL Lactic Acid (0.4-2.0) Calcium 9.1 (8.4-10.2) mg/dL Total Bilirubin 1.50 H (0.2-1.3) mg/dL AST 40 H (14-36) U/L ALT 19 (0-35) U/L Alkaline Phosphatase 129 H (38-126) U/L Serum Total Protein 6.5 (6.3-8.2) g/dL Albumin 3.5 (3.5-5.0) g/dL Amylase 36 (30-110) U/L Lipase 20 L (23-300) U/L Urine Color Dark Yellow A (Yellow) Urine Appearance Clear (Clear) Urine pH 6.0 (4.6-8.0) Ur Specific [place] 1.015 (1.005-1.030) Urine Protein Negative (Negative) Urine Glucose (UA) Negative (Negative) mg/dL Urine Ketones Negative (Negative) Urine Blood Negative (Negative) Urine Nitrite Negative (Negative) Urine Bilirubin Negative (Negative) Urine Urobilinogen 2.0 A (0.2) mg/dL Ur Leukocyte Esterase Negative (Negative) U Hyaline Cast (Auto) 0-2 (0-2) /LPF Urine Microscopic RBC 0-2 (0-5) /HPF Urine Microscopic WBC 0-2 (0-5) /HPF Ur Epithelial Cells Few (None Seen) /HPF Urine Bacteria Rare A (None Seen) /HPF Urine Yeast (Budding) Rare A (None Seen) /HPF Urine Culture Reflexed ORDERED SEPARATELY (NO) C. difficile Screen (NEGATIVE) C.difficile 027-NAP1-B1 (NEGATIVE) - Radiology Impressions Radiology Exams & Impressions: Radiology Procedures Category Date Time Status ABDOMEN AND PELVIS W/0 CONTRAS [CT] Stat Exams 08/15/24 16:57 Taken CHEST WITHOUT CONTRAST [CT] Stat Exams 08/15/24 16:58 Taken HEAD WITHOUT CONTRAST [CT] Stat Exams 08/15/24 18:[address] chest no infiltrates, no edema, no noticeable emphysematous changes (images reviewed) CT abdomen and pelvis report unavailable, but per ER physician, showed enteritis CT head report unavailable, but per ER physician, showed no acute changes - Other Procedures and Tests Respiratory Therapy 08/15/24 23:19 Oxygen Nasal Cannula 2 lpm 08/16/24 00:00 Respiratory Therapy Assessment DAILY Assessment/Plan (1) Vomiting and diarrhea Current Visit: Yes Status: Acute Assessment & Plan: 78-year-old with history of CAD, depression, COPD on oxygen, hypertension, here with leukocytosis and diarrhea. ## Leukocytosis source is not clear, but appears to be secondary to gastroenteritis. Patient previously was diagnosed with pneumonia, but lungs appear clear today on chest CT. Review of prior chest x-ray appears to be more constant with atelectasis than pneumonia. Urine is also clear. Patient denies using steroids with a recent cough and dyspnea. C. difficile can cause marked leukocytosis, but initial assay was negative in the ED. However, patient clinically appears to be a little dry, and suspect her confusion and diffuse weakness is secondary to dehydration. continuous NS at 100 mL/h PRN Zofran and loperamide Repeat CBC in the morning ## COPD, chronic hypoxic respiratory failure on her home oxygen requirements. Note, ABG shows compensated chronic hypercarbia. Her serum bicarb is at her baseline, suggesting no acute respiratory changes. Continue home oxygen, titrate to maintain SpO2 between 91 and 94% Continue home PRN albuterol ## Hypertension BP controlled Continue home lisinopril 10 ## Depression and anxiety Continue home Celexa 40 mg daily, Klonopin BID CODE STATUS: DNR (confirmed with patient today) Prophylaxis: Lovenox Diet: Regular Dispo: Place in observation Code(s): R11.10 - VOMITING, UNSPECIFIED; R19.7 - DIARRHEA, UNSPECIFIED Telemedicine Encounter - Telemedicine Encounter Telemedicine Encounter: "The entirety of this encounter was performed via Telemedicine" This visit was performed using real-time audio and video connection between my location and thepatients locationwith the assistance of a surrogateat the patients location. Written or verbal consent was obtained from the patient/guardian to perform this [facility] technology. Any patient questions regarding the telemedicine interaction were answered.
[2024-08-16 05:14] LABS: Hematocrit 32.7 % (34.1-44.9); Mean Cell Volume 91.6 fL (79.4-94.8); Mean Corpuscular Hgb Concent. 30.6 g/dL (32.2-35.5); Mean Platelet Volume 9.3 fL (9.4-12.3); Platelet Count 276 x10^3/uL (182-369); Red Blood Count 3.57 x10^6/uL (3.93-5.22); Red Cell Distribution Width 14.6 % (11.7-14.4)
[2024-08-16 05:24] LABS: ANION GAP 8.1 MEQ/L (5-15); Calcium 8.5 mg/dL (8.4-10.2); Creatinine 1 0.72 mg/dL (0.52-1.04); EST GLOMERULAR FILTRATION RATE 84.5 ML/MIN; Potassium 4.9 mmol/L (3.5-5.1)
--- NOTE | 2024-08-16 05:25 | PCM.NOTE ---
Date and Time: 08/16/24 0520 Subjective Assessment: 78-year-old with a history of CAD, depression, COPD on home oxygen, hypertension, and GERD, who presented 08/16/23 with diarrhea and abdominal pain. Patient initially presented 4 days ago with cough and dyspnea, was diagnosed with pneumonia, and discharged home on Levaquin. However, patient continues to feel poorly, with progressive weakness not relieved by antibiotics or nebulizer treatment. Daughter noticed the patient appeared to be more lethargic and confused today. She also fell on Wednesday and on Wednesday prior to admission, although no trauma, no loss of consciousness. In the ED, she continued to have diarrhea, and developed nausea and vomiting as well. Patient denies any fever or sick contacts. No dyspnea today. Cough is generally improved. 08/16/24: Met with patient and daughter at bedside. Endorses some improvement but still remains confused. Had an episode of hematochezia. WBC count is increasing. Vomiting has resolved. Patient remains weak and short of breath - at baseline oxygen. Patient does have history of diverticulitis per daughter. CT abdomen showing gastritis. CT head and chest negative for acute findings. Patient allergic to penicillins - will start ceftriaxone and flagyl. - Review of Systems Constitutional: Weakness Eyes: No Symptoms Ears, Nose, & Throat: No Symptoms Respiratory: Short Of Breath Cardiac: No Symptoms Abdominal/Gastrointestinal: Abdominal Pain, Nausea, Diarrhea Genitourinary Symptoms: No Symptoms Musculoskeletal: No Symptoms Skin: No Symptoms Neurological: No Symptoms Psychological: No Symptoms Endocrine: No Symptoms Hematologic/Lymphatic: Anemia Immunological/Allergic: No Symptoms Objective Exam General Appearance: no apparent distress Neurologic Exam: alert, cooperative, confusion Skin Exam: normal color Wound Assessment: Skin/Wound Assessment Wound/Incision Assessment Start: 08/15/24 23:51 Text: Status: Active Freq: Q6H Protocol: Document 08/15/24 23:51 KX (Rec: 08/16/24 00:00 KX [id number]) Wound Photo Photo Taken No Comment: no wound Eye Exam: PERRL Ears, Nose, Throat Exam: normal ENT inspection Neck Exam: normal inspection Respiratory Exam: crackles/rales Cardiovascular Exam: regular rate/rhythm, normal heart sounds Gastrointestinal/Abdomen Exam: soft, normal bowel sounds, tenderness Extremity Exam: normal inspection Back Exam: normal inspection Pelvic Exam: deferred Rectal Exam: deferred Objective Data Vital Signs: Vital Signs - 24 hr Temp Pulse Resp BP BP Pulse Ox 08/16/24 03:49 98.2 F 72 16 137/56 96 08/16/24 00:00 97.9 F 67 18 121/45 92 L 08/15/24 23:59 92 L 08/15/24 23:31 97.9 F 67 18 121/45 92 L 08/15/24 22:13 92 L 08/15/24 22:01 67 18 118/43 97 08/15/24 21:30 66 19 90/57 08/15/24 21:01 64 15 106/69 96 08/15/24 20:30 61 25 H 115/60 97 08/15/24 20:00 61 18 116/63 08/15/24 19:30 60 22 105/44 08/15/24 19:21 60 20 103/54 08/15/24 19:01 62 18 126/59 99 08/15/24 18:41 60 25 H 113/47 08/15/24 18:31 60 23 76/55 08/15/24 18:00 54 L 18 107/43 08/15/24 17:55 55 L 16 100/36 99 08/15/24 17:52 57 L 15 08/15/24 17:30 57 L 16 08/15/24 17:20 58 L 17 08/15/24 17:19 58 L 16 08/15/24 16:30 59 L 16 92/40 99 08/15/24 16:19 97 F 61 19 109/49 100 08/15/24 16:12 150/109 Pain Assessment - Last Documented Pain Intensity 0 Pain Scale Used 0-10 Pain Scale Intake and Output: Intake & Output 08/13/24 08/14/24 08/15/24 08/16/24 11:59 11:59 11:59 11:59 Intake Total 345 Output Total 200 Balance 145 Weight 59.1 kg Lab Results: Lab Results-Last 24 Hours 08/15/24 08/15/24 08/15/24 Range/Units 16:22 17:04 17:42 WBC (3.98-10.04) x10^3/uL RBC (3.93-5.22) x10^6/uL Hgb (11.2-15.7) g/dL Hct (34.1-44.9) % MCV (79.4-94.8) fL MCH (25.6-32.2) pg MCHC (32.2-35.5) g/dL RDW (11.7-14.4) % Plt Count (182-369) x10^3/uL MPV (9.4-12.3) fL Segmented Neutrophils (34.0-71.1) % Band Neutrophils (0.0-2.0) % Lymphocytes (Manual) (19.3-51.7) % Monocytes (Manual) (4.7-12.5) % Hypochromia Platelet Estimate (NORMAL) RBC Morphology Puncture Site RIGHT BRACHIAL pCO2 66 H* (35-45) mmHg pO2 170 H* (75-100) mmHg Base Excess 18.9 H (-2.0-2.0) O2 Saturation 96.8 (94-100) g/dF ABG pH 7.45 (7.35-7.45) ABG HCO3 45.9 H* (22-28) ABG O2 Sat (Measured) 100.0 (95-100) % Kirk Test NOT APPLICABLE A-a Gradient 461 a/A Ratio 0.27 Hemoglobin 10.7 Carboxyhemoglobin 2.1 (0.0-6.9) % THgb Methemoglobin 1.0 L (1.4-1.5) % Potassium 5.1 (3.5-5.1) Temperature 37.0 C POC O2 Flow Rate 100 % Sodium (135-145) mmol/L Chloride (98-107) mmol/L Carbon Dioxide (22-30) mmol/L Anion Gap (5-15) MEQ/L BUN (7-17) mg/dL Creatinine (0.52-1.04) mg/dL Estimated GFR ML/MIN Glucose (74-106) mg/dL Lactic Acid 1.2 (0.4-2.0) Calcium (8.4-10.2) mg/dL Total Bilirubin (0.2-1.3) mg/dL AST (14-36) U/L ALT (0-35) U/L Alkaline Phosphatase (38-126) U/L Serum Total Protein (6.3-8.2) g/dL Albumin (3.5-5.0) g/dL Amylase (30-110) U/L Lipase (23-300) U/L Urine Color (Yellow) Urine Appearance (Clear) Urine pH (4.6-8.0) Ur Specific [place] (1.005-1.030) Urine Protein (Negative) Urine Glucose (UA) (Negative) mg/dL Urine Ketones (Negative) Urine Blood (Negative) Urine Nitrite (Negative) Urine Bilirubin (Negative) Urine Urobilinogen (0.2) mg/dL Ur Leukocyte Esterase (Negative) U Hyaline Cast (Auto) (0-2) /LPF Urine Microscopic RBC (0-5) /HPF Urine Microscopic WBC (0-5) /HPF Ur Epithelial Cells (None Seen) /HPF Urine Bacteria (None Seen) /HPF Urine Yeast (Budding) (None Seen) /HPF Urine Culture Reflexed (NO) C. difficile Screen NEGATIVE (NEGATIVE) C.difficile 027-NAP1-B1 PRESUMPTIVE NEGATIVE (NEGATIVE) 08/15/24 08/15/24 08/15/24 Range/Units 18:10 18:10 20:05 WBC 36.8 H* (3.98-10.04) x10^3/uL RBC 3.94 (3.93-5.22) x10^6/uL Hgb 10.9 L (11.2-15.7) g/dL Hct 36.4 (34.1-44.9) % MCV 92.4 (79.4-94.8) fL MCH 27.7 (25.6-32.2) pg MCHC 29.9 L (32.2-35.5) g/dL RDW 14.4 (11.7-14.4) % Plt Count 263 (182-369) x10^3/uL MPV 9.1 L (9.4-12.3) fL Segmented Neutrophils 89 H (34.0-71.1) % Band Neutrophils 4 H (0.0-2.0) % Lymphocytes (Manual) 1 L (19.3-51.7) % Monocytes (Manual) 6 (4.7-12.5) % Hypochromia 2+ Platelet Estimate NORMAL (NORMAL) RBC Morphology ABNORMAL Puncture Site pCO2 (35-45) mmHg pO2 (75-100) mmHg Base Excess (-2.0-2.0) O2 Saturation (94-100) g/dF ABG pH (7.35-7.45) ABG HCO3 (22-28) ABG O2 Sat (Measured) (95-100) % Kirk Test A-a Gradient a/A Ratio Hemoglobin Carboxyhemoglobin (0.0-6.9) % THgb Methemoglobin (1.4-1.5) % Potassium 4.9 (3.5-5.1) Temperature C POC O2 Flow Rate % Sodium 137 (135-145) mmol/L Chloride 94 L (98-107) mmol/L Carbon Dioxide 36 H (22-30) mmol/L Anion Gap 11.9 (5-15) MEQ/L BUN 38 H (7-17) mg/dL Creatinine 0.74 (0.52-1.04) mg/dL Estimated GFR 81.7 ML/MIN Glucose 163 H (74-106) mg/dL Lactic Acid (0.4-2.0) Calcium 9.1 (8.4-10.2) mg/dL Total Bilirubin 1.50 H (0.2-1.3) mg/dL AST 40 H (14-36) U/L ALT 19 (0-35) U/L Alkaline Phosphatase 129 H (38-126) U/L Serum Total Protein 6.5 (6.3-8.2) g/dL Albumin 3.5 (3.5-5.0) g/dL Amylase 36 (30-110) U/L Lipase 20 L (23-300) U/L Urine Color Dark Yellow A (Yellow) Urine Appearance Clear (Clear) Urine pH 6.0 (4.6-8.0) Ur Specific [place] 1.015 (1.005-1.030) Urine Protein Negative (Negative) Urine Glucose (UA) Negative (Negative) mg/dL Urine Ketones Negative (Negative) Urine Blood Negative (Negative) Urine Nitrite Negative (Negative) Urine Bilirubin Negative (Negative) Urine Urobilinogen 2.0 A (0.2) mg/dL Ur Leukocyte Esterase Negative (Negative) U Hyaline Cast (Auto) 0-2 (0-2) /LPF Urine Microscopic RBC 0-2 (0-5) /HPF Urine Microscopic WBC 0-2 (0-5) /HPF Ur Epithelial Cells Few (None Seen) /HPF Urine Bacteria Rare A (None Seen) /HPF Urine Yeast (Budding) Rare A (None Seen) /HPF Urine Culture Reflexed ORDERED SEPARATELY (NO) C. difficile Screen (NEGATIVE) C.difficile 027-NAP1-B1 (NEGATIVE) Radiology Exams: Radiology Procedures Category Date Time Status ABDOMEN AND PELVIS W/0 CONTRAS [CT] Stat Exams 08/15/24 16:57 Taken CHEST WITHOUT CONTRAST [CT] Stat Exams 08/15/24 16:58 Taken HEAD WITHOUT CONTRAST [CT] Stat Exams 08/15/24 18:23 Taken Multi-Disciplinary Progress Notes: Multi-Disciplinary Progress Notes 08/15/24 16:31 Respiratory Note by Jessica Kumar PT IN VIA AMBULANCE ON 15LPM NRB. O2 SATS READING IN THE 80'S WITH A POOR WAVE FORM PRESENT. ABG COMPLETED AND O2 SAT ALSO OBTAINED WITH NELLCOR BANDAID PROBE. O2 SATS 96-100%. PT PLACED ON HER HOME SETTINGS OF 2LPM VIA NASAL CANNULA. PT DENIES SOB AT THIS TIME. Initialized on 08/15/24 16:31 - END OF NOTE Assessment/Plan (1) Gastritis Current Visit: Yes Status: Acute Assessment & Plan: -CT demonstrates New fluid distended stomach and small bowel loops, ileus versus gastroenteritis. Also new diffuse colonic diarrhea -patient with bloody/watery stools - negative for cdiff - has h/o diverticulitis - will add ceftriaxone/flagyl for coverage -consult surgery -occult stools + Code(s): K29.70 - GASTRITIS, UNSPECIFIED, WITHOUT BLEEDING (2) GI bleed Current Visit: Yes Status: Acute Assessment & Plan: -ct as stated above -occult stools positive -surgery consulted -hold asa/lovenox -scd's -monitor hgb q8h -Protonix Code(s): K92.2 - GASTROINTESTINAL HEMORRHAGE, UNSPECIFIED (3) Leukocytosis Current Visit: No Status: Acute Assessment & Plan: -reactive vs infective process ? -Start ceftriaxone/flagyl ? diverticulitis - pt does have h/o - -WBC reviewed at 36.8 on admission now increased at 42.5-trend -UA negative - ucult NGTD -cdiff negative -CT abdomen/pelvis showing gastritis -CT chest negative -CT head negative -continue IVF -PRN anti-emetics -blood and urine cultures pending Code(s): D72.829 - ELEVATED WHITE BLOOD CELL COUNT, UNSPECIFIED (4) Confusion Current Visit: Yes Status: Acute Assessment & Plan: -Most likely secondary to infection - improved some -Head ct reviewed Code(s): R41.0 - DISORIENTATION, UNSPECIFIED (5) Depression Current Visit: Yes Status: Acute Assessment & Plan: -continue home celexa Code(s): F32.A - DEPRESSION, UNSPECIFIED (6) COPD (chronic obstructive pulmonary disease) Current Visit: No Status: Acute Assessment & Plan: -supplemental oxygen with spo2 goal >91% - on baseline oxygen at -DuoNebs/INH -RT eval and follow (7) HTN (hypertension) Current Visit: No Status: Acute Code(s): I10 - ESSENTIAL (PRIMARY) HYPERTENSION
[2024-08-16 05:30] LABS: White Blood Count 42.5 x10^3/uL (3.98-10.04)
[2024-08-16 05:56] LABS: BAND 11 % (0.0-2.0); Lymphocytes 2 % (19.3-51.7); Monocyte 4 % (4.7-12.5); Neutrophils 83 % (34.0-71.1); Total Cells Counted 100
[2024-08-16 05:58] LABS: ANISOCYTOSIS 1+; Platelet Estimate NORMAL (NORMAL); Poikilocytosis 1+
[2024-08-16] MEDS ORDERED: Sodium Chloride 0.9% 1000 ML 1,000 ML ONE (06:09)
[2024-08-16] MEDS ORDERED: VENTOLIN COMMON CANISTER IH PRN (07:03)
[2024-08-16] MEDS: PROVENTIL 2.5 MG/3 ML NEB IH SCH (07:13)
--- NOTE | 2024-08-16 08:39 | XRAY ---
Indication: Multiple falls. Multiple contiguous axial images obtained through the head without contrast. Comparison: July 11, 2024 Previous subdural hematoma has resolved. Again age-appropriate global atrophy, mild periventricular degenerative micro-ischemia bilaterally, and right basal ganglia remote lacunar infarcts. No new acute intracranial hemorrhage, abnormal extra-axial fluid collection, or mass effect. Fourth ventricle is midline without hydrocephalus. Bony calvarium intact again with hyperostosis frontalis interna. Visualized paranasal sinuses and mastoid air cells are clear. Impression: Nonacute senile brain.
--- NOTE | 2024-08-16 08:43 | XRAY ---
Indication: Short of breath. Cough. Hypoxia. Multiple contiguous axial images obtained through the chest without contrast. Comparison: None Lungs demonstrates scattered subsegmental atelectasis/scarring bilaterally. No suspicious mass/nodule, infiltrate, or effusion. Heart not enlarged. Aorta mildly arteriosclerotic without aneurysm. Small paratracheal calcified node. No pathologic mediastinal lymphadenopathy. Bony thorax intact with osteopenia, moderate multilevel degenerative spondylosis, and remote T12 inferior endplate fracture, and old left 4-[address] abdomen/pelvis reported separately. Impression: Chronic findings including atelectasis/scarring, arteriosclerotic disease, chronic bony findings, and old granulomatous disease. No acute findings on this noncontrast exam.
--- NOTE | 2024-08-16 08:45 | XRAY ---
Indication: Diarrhea. Multiple contiguous axial images obtained through the abdomen and pelvis without contrast. Comparison: June 03, 2024 CT chest reported separately. Noncontrasted stomach and bowel loops appear nonobstructed. There is now fluid distended stomach and small bowel loops with fluid leveling, ileus versus gastroenteritis. Also new diffuse colonic diarrhea. Stable cholecystectomy and hysterectomy. No free fluid/air. Remaining liver, pancreas, spleen, adrenal glands, kidneys, ureters, and bladder are unremarkable for noncontrast exam. There remains mild scattered aortoiliac calcifications without AAA. Osseous structures intact again with osteopenia, moderate degenerative changes throughout spine, L4-S1 fusion, and old proximal left femur fracture with intact orthopedic hardware. Stable small fatty umbilical hernia. Impression: 1. New fluid distended stomach and small bowel loops, ileus versus gastroenteritis. Also new diffuse colonic diarrhea. 2. Again chronic findings including arteriosclerotic disease, chronic bony findings, and fatty umbilical hernia.
[2024-08-16] MEDS ORDERED: NON-FORMULARY ITEM (Atorvastatin Calcium [Lipitor] 80 MG Tablet) PO SCH (10:00)
[2024-08-16] MEDS ORDERED: NON-FORMULARY ITEM (Clonazepam [Clonazepam] 0.5 MG Tab.Rapdis) PO SCH (10:00)
[2024-08-16] MEDS: ROCEPHIN 1 GM / 100 ML NaCl 1 GM/100 ML IVPB IV SCH (11:38)
[2024-08-16] MEDS: ceLEXa 20 MG PO SCH (11:40)
[2024-08-16] MEDS: ENOXAPARIN SODIUM SQ SCH (11:40)
[2024-08-16] MEDS: NEURONTIN PO SCH (11:41)
[2024-08-16] MEDS: Protonix 40MG Tablet PO SCH (11:41)
[2024-08-16] MEDS: ECOTRIN 81 MG PO SCH (11:41)
[2024-08-16] MEDS: ZOCOR 20MG PO SCH (11:41)
[2024-08-16] MEDS: Vitamin C 500 MG PO SCH (11:41)
[2024-08-16] MEDS: Zestril 10 MG PO SCH (11:42)
[2024-08-16] MEDS: DIFLUCAN PO ONE (11:42)
[2024-08-16] MEDS: clonazePAM PO SCH (11:43)
[2024-08-16 12:20] LABS: Hematocrit 31.7 % (34.1-44.9); Hemoglobin 9.8 g/dL (11.2-15.7)
[2024-08-16] MEDS: ULTRAM 50 MG PO PRN (12:21)
[2024-08-16] MEDS: FLAGYL 500 MG IVPB 500 MG/100 ML BAG IV SCH (12:22)
[2024-08-16 12:30] LABS: IFOB TEST RESULTS POSITIVE (NEGATIVE)
[2024-08-16] MEDS: TYLENOL 325 MG PO PRN (13:50)
[2024-08-16] MEDS ORDERED: PIPERACILLIN/TAZOBACTAM 3.375 GM in Sodium Chloride 100ML MINI-BAG PLUS 100 ML IV SCH (18:00)
[2024-08-16] MEDS: PROTONIX 40 MG IV IV SCH (21:40)
[2024-08-17 05:36] LABS: ALBUMIN 2.5 g/dL (3.5-5.0); ANION GAP 3.3 MEQ/L (5-15); BILIRUBIN,TOTAL 0.8 mg/dL (0.2-1.3); Calcium 7.5 mg/dL (8.4-10.2); Creatinine 1 0.74 mg/dL (0.52-1.04); EST GLOMERULAR FILTRATION RATE 81.7 ML/MIN; Potassium 3.9 mmol/L (3.5-5.1); Total Protein 5.1 g/dL (6.3-8.2)
--- NOTE | 2024-08-17 05:55 | PCM.NOTE ---
Date and Time: 08/17/24 0555 Subjective Assessment: 78-year-old with a history of CAD, depression, COPD on home oxygen, hypertension, and GERD, who presented 08/16/23 with diarrhea and abdominal pain. Patient initially presented 4 days ago with cough and dyspnea, was diagnosed with pneumonia, and discharged home on Levaquin. However, patient continues to feel poorly, with progressive weakness not relieved by antibiotics or nebulizer treatment. Daughter noticed the patient appeared to be more lethargic and confused today. She also fell on Wednesday and on Wednesday prior to admission, although no trauma, no loss of consciousness. In the ED, she continued to have diarrhea, and developed nausea and vomiting as well. Patient denies any fever or sick contacts. No dyspnea today. Cough is generally improved. 08/16/24: Met with patient and daughter at bedside. Endorses some improvement but still remains confused. Had an episode of hematochezia. WBC count is increasing. Vomiting has resolved. Patient remains weak and short of breath - at baseline oxygen. Patient does have history of diverticulitis per daughter. CT abdomen showing gastritis. CT head and chest negative for acute findings. Patient allergic to penicillins - will start ceftriaxone and flagyl. 08/17/24: No overnight events noted. Patient A&O x 4 this morning. Endorses she is feeling much better today. Has complaints of shortness of breath and cough with white sputum. She is at her baseline oxygen of 2L today. Denies N/V/D. Still has some blood in her stools. Surgery consulted and recommended colonoscopy- patient refuses- pending official consult today. She has h/o of diverticulitis. Concern that this may be what is going on although CT scan showing gastritis. Ceftriaxone and Flagyl started yesterday with noted improvement to WBC. Will continue abx. - Review of Systems Constitutional: Weakness Eyes: No Symptoms Ears, Nose, & Throat: No Symptoms Respiratory: Cough, Short Of Breath Cardiac: No Symptoms Abdominal/Gastrointestinal: Abdominal Pain Genitourinary Symptoms: No Symptoms Musculoskeletal: No Symptoms Skin: No Symptoms Neurological: No Symptoms Psychological: No Symptoms Endocrine: No Symptoms Hematologic/Lymphatic: Anemia Immunological/Allergic: No Symptoms Objective Exam General Appearance: no apparent distress Neurologic Exam: alert, oriented x 3, cooperative Skin Exam: pale Eye Exam: PERRL Ears, Nose, Throat Exam: normal ENT inspection Neck Exam: normal inspection Respiratory Exam: crackles/rales Cardiovascular Exam: regular rate/rhythm, normal heart sounds Gastrointestinal/Abdomen Exam: soft, normal bowel sounds Extremity Exam: normal inspection Back Exam: normal inspection Pelvic Exam: deferred Rectal Exam: deferred Objective Data Vital Signs: Vital Signs - 24 hr Temp Pulse Resp BP Pulse Ox 08/17/24 05:25 62 20 98 08/17/24 04:00 65 14 97/46 96 08/16/24 23:41 98.3 F 70 19 97/44 97 08/16/24 20:00 98.0 F 79 16 93 L 08/16/24 19:15 71 20 96 08/16/24 15:24 98.0 F 70 13 104/59 100 08/16/24 14:48 69 20 100 08/16/24 12:00 98.8 F 76 19 119/107 91 L 08/16/24 11:03 77 18 95 08/16/24 07:32 98.0 F 88 19 109/48 98 08/16/24 07:13 99 Pain Assessment - Last Documented Pain Intensity 0 Pain Scale Used 0-10 Pain Scale Intake and Output: Intake & Output 08/14/24 08/15/24 08/16/24 08/17/24 11:59 11:59 11:59 11:59 Intake Total 995 3602 Output Total 200 1750 Balance 795 1852 Weight 59.1 kg Lab Results: Lab Results-Last 24 Hours 08/16/24 08/16/24 08/16/24 Range/Units 04:50 04:57 12:18 WBC 42.5 H* (3.98-10.04) x10^3/uL RBC 3.57 L (3.93-5.22) x10^6/uL Hgb 10.0 L 9.8 L (11.2-15.7) g/dL Hct 32.7 L 31.7 L (34.1-44.9) % MCV 91.6 (79.4-94.8) fL MCH 28.0 (25.6-32.2) pg MCHC 30.6 L (32.2-35.5) g/dL RDW 14.6 H (11.7-14.4) % Plt Count 276 (182-369) x10^3/uL MPV 9.3 L (9.4-12.3) fL Segmented Neutrophils 83 H (34.0-71.1) % Band Neutrophils 11 H (0.0-2.0) % Lymphocytes (Manual) 2 L (19.3-51.7) % Monocytes (Manual) 4 L (4.7-12.5) % Platelet Estimate NORMAL (NORMAL) RBC Morphology ABNORMAL Poikilocytosis 1+ Anisocytosis 1+ Smear Path Review Pending Sodium (135-145) mmol/L Potassium (3.5-5.1) mmol/L Chloride (98-107) mmol/L Carbon Dioxide (22-30) mmol/L Anion Gap (5-15) MEQ/L BUN (7-17) mg/dL Creatinine (0.52-1.04) mg/dL Estimated GFR ML/MIN Glucose (74-106) mg/dL Calcium (8.4-10.2) mg/dL Total Bilirubin (0.2-1.3) mg/dL AST (14-36) U/L ALT (0-35) U/L Alkaline Phosphatase (38-126) U/L Serum Total Protein (6.3-8.2) g/dL Albumin (3.5-5.0) g/dL Procalcitonin 1.490 H (0.030-0.080) ng/mL Stl Occult Blood (IFOB) (NEGATIVE) 08/16/24 08/17/24 Range/Units 12:25 05:05 WBC (3.98-10.04) x10^3/uL RBC (3.93-5.22) x10^6/uL Hgb (11.2-15.7) g/dL Hct (34.1-44.9) % MCV (79.4-94.8) fL MCH (25.6-32.2) pg MCHC (32.2-35.5) g/dL RDW (11.7-14.4) % Plt Count (182-369) x10^3/uL MPV (9.4-12.3) fL Segmented Neutrophils (34.0-71.1) % Band Neutrophils (0.0-2.0) % Lymphocytes (Manual) (19.3-51.7) % Monocytes (Manual) (4.7-12.5) % Platelet Estimate (NORMAL) RBC Morphology Poikilocytosis Anisocytosis Smear Path Review Sodium 132 L (135-145) mmol/L Potassium 3.9 D (3.5-5.1) mmol/L Chloride 95 L (98-107) mmol/L Carbon Dioxide 37 H (22-30) mmol/L Anion Gap 3.3 L (5-15) MEQ/L BUN 31 H (7-17) mg/dL Creatinine 0.74 (0.52-1.04) mg/dL Estimated GFR 81.7 ML/MIN Glucose 121 H (74-106) mg/dL Calcium 7.5 L (8.4-10.2) mg/dL Total Bilirubin 0.80 (0.2-1.3) mg/dL AST 29 (14-36) U/L ALT 13 (0-35) U/L Alkaline Phosphatase 62 (38-126) U/L Serum Total Protein 5.1 L (6.3-8.2) g/dL Albumin 2.5 L (3.5-5.0) g/dL Procalcitonin (0.030-0.080) ng/mL Stl Occult Blood (IFOB) POSITIVE A (NEGATIVE) Radiology Exams: Radiology Procedures Category Date Time Status ABDOMEN AND PELVIS W/0 CONTRAS [CT] Stat Exams 08/15/24 16:57 Completed CHEST WITHOUT CONTRAST [CT] Stat Exams 08/15/24 16:58 Completed HEAD WITHOUT CONTRAST [CT] Stat Exams 08/15/24 18:23 Completed Assessment/Plan (1) Gastritis Current Visit: Yes Status: Acute Assessment & Plan: -CT demonstrates New fluid distended stomach and small bowel loops, ileus versus gastroenteritis. Also new diffuse colonic diarrhea -patient with bloody/watery stools - negative for cdiff - has h/o diverticulitis - will add ceftriaxone/flagyl for coverage -consult surgery -occult stools + 08/17: -No n/v/d -+blood in stool -surg consult pending -Continue flagyl/ceftriaxone Code(s): K29.70 - GASTRITIS, UNSPECIFIED, WITHOUT BLEEDING (2) GI bleed Current Visit: Yes Status: Acute Assessment & Plan: -ct as stated above -occult stools positive -surgery consulted -hold asa/lovenox -scd's -monitor hgb q8h -Protonix Code(s): K92.2 - GASTROINTESTINAL HEMORRHAGE, UNSPECIFIED (3) Leukocytosis Current Visit: No Status: Acute Assessment & Plan: -reactive vs infective process ? -Start ceftriaxone/flagyl ? diverticulitis - pt does have h/o - -WBC reviewed at 36.8 on admission now increased at 42.5-trend -UA negative - ucult NGTD -cdiff negative -CT abdomen/pelvis showing gastritis -CT chest negative -CT head negative -continue IVF -PRN anti-emetics -blood and urine cultures pending 08/17/24 -WBC reviewed and improving at 27.3<42.3 -continue ceftriaxone/flagyl -Ucult with ngtd -blood and sputum cult pending Code(s): D72.829 - ELEVATED WHITE BLOOD CELL COUNT, UNSPECIFIED (4) Confusion Current Visit: Yes Status: Acute Assessment & Plan: -Most likely secondary to infection - improved some -Head ct reviewed 08/17/24: -resolved Code(s): R41.0 - DISORIENTATION, UNSPECIFIED (5) Depression Current Visit: Yes Status: Acute Assessment & Plan: -continue home celexa Code(s): F32.A - DEPRESSION, UNSPECIFIED (6) COPD (chronic obstructive pulmonary disease) Current Visit: No Status: Acute Assessment & Plan: -supplemental oxygen with spo2 goal >91% - on baseline oxygen at -DuoNebs/INH -RT eval and follow Code(s): K29.70 - GASTRITIS, UNSPECIFIED, WITHOUT BLEEDING (2) GI bleed Current Visit: Yes Status: Acute Code(s): K92.2 - GASTROINTESTINAL HEMORRHAGE, UNSPECIFIED (3) Leukocytosis Current Visit: No Status: Acute Code(s): D72.829 - ELEVATED WHITE BLOOD CELL COUNT, UNSPECIFIED (4) Confusion Current Visit: Yes Status: Acute Code(s): R41.0 - DISORIENTATION, UNSPECIFIED (5) Depression Current Visit: Yes Status: Acute Code(s): F32.A - DEPRESSION, UNSPECIFIED (6) COPD (chronic obstructive pulmonary disease) Current Visit: No Status: Acute (7) HTN (hypertension) Current Visit: No Status: Acute Code(s): I10 - ESSENTIAL (PRIMARY) HYPERTENSION
[2024-08-17 06:44] LABS: Hematocrit 27.7 % (34.1-44.9); Hemoglobin 8.6 g/dL (11.2-15.7); Mean Cell Volume 90.2 fL (79.4-94.8); Mean Platelet Volume 9.6 fL (9.4-12.3); Platelet Count 225 x10^3/uL (182-369); Red Blood Count 3.07 x10^6/uL (3.93-5.22); Red Cell Distribution Width 14.7 % (11.7-14.4)
[2024-08-17 06:52] LABS: White Blood Count 27.3 x10^3/uL (3.98-10.04)
[2024-08-17 07:21] LABS: Lymphocytes 5 % (19.3-51.7); Monocyte 11 % (4.7-12.5); Total Cells Counted 100
[2024-08-17 07:22] LABS: Hypochromia 2+; Platelet Estimate NORMAL (NORMAL)
[2024-08-17] MEDS: ROCEPHIN 1 GM / 100 ML NaCl 1 GM/100 ML IVPB IV SCH (09:13)
--- NOTE | 2024-08-17 17:34 | PCM.CONS ---
History of Present Illness - Reason for Consult Chief Complaint: Diarrhea Requesting Provider: SUMAN SMALLS MD Consulting Provider: TREY WINCHESTER MD History of Present Illness: is a 78 year old female. hx per chart review and d/w pt and rn. pmh listed presents with abd pain, diarrhea, altered mental status. recent admit with pna, abx. admitted, rescucitated. significant improvement with that. did have bloody mucoid stools yesterday then 1 today and 1 brown nonbloody stool today. much more alert and with it today. no n/v. mild abdominal discomfort. no n/v. no complaints currently. "[employer] ([employer]) History & Physical Patient Name: MISTI STALLINGS Date of : 1945 Patient Status: Observation Attending Provider: SUMAN SMALLS Date: 08/15/24 22:10 Initialization Date: 08/16/24 03:47 History of Present Illness - Chief Complaint Chief Complaint: Diarrhea Date: 08/15/24 History of Present Illness: 78-year-old with a history of CAD, depression, COPD on home oxygen, hypertension, and GERD, who presents with diarrhea and abdominal pain. Patient initially presented 4 days ago with cough and dyspnea, was diagnosed with pneumonia, and discharged home on Levaquin. However, patient continues to feel poorly, with progressive weakness not relieved by antibiotics or nebulizer treatment. Daughter noticed the patient appeared to be more lethargic and confused today. She also fell on Wednesday and on Wednesday prior to admission, although no trauma, no loss of consciousness. In the ED, she continued to have diarrhea, and developed nausea and vomiting as well. Patient denies any fever or sick contacts. No dyspnea today. Cough is generally improved. - Review of Systems All Other Systems: Reviewed and Negative Medications & Allergies Home Medications: Home Medication List Gabapentin 300 mg PO TID 03/29/19 [History Confirmed 06/03/24] Citalopram Hydrobromide 20 mg* [ceLEXa 20 MG] 40 mg PO DAILY 10/12/22 [History Confirmed 06/03/24] Aspirin EC 81 mg [Ecotrin 81 mg] 1 tab PO DAILY 06/08/23 [History Confirmed 08/15/24] Atorvastatin Calcium [Lipitor] 1 tab PO DAILY 06/08/23 [History Confirmed 08/15/24] Lisinopril 10 mg [Zestril 10 MG] 1 tab PO DAILY 06/08/23 [History Confirmed 08/15/24] Albuterol Sulfate Mdi [ALBUTEROL/Proair Hfa MDI] 2 puff IH Q6HPRN PRN 03/16/24 [History Confirmed 08/15/24] Ascorbic Acid 500 mg [Vitamin C 500 MG] 500 mg PO DAILY 03/16/24 [History Confirmed 08/15/24] Meclizine HCl 12.5 mg PO TID 03/16/24 [History Confirmed 06/03/24] PANTOPRAZOLE 40 mg Tablet [Protonix 40MG Tablet] 40 mg PO DAILY 03/16/24 [History Confirmed 08/15/24] clonazePAM [Clonazepam] 0.5 mg PO BID 03/16/24 [History Confirmed 08/15/24] Levofloxacin [Levaquin 500 MG Tablet] 500 mg PO DAILY #7 tablet 08/11/24 [Rx Confirmed 08/15/24] Allergies/Adverse Reactions: Allergies Allergy/AdvReac Type Severity Reaction Status Date / Time Sulfa (Sulfonamide Allergy Severe Tightness Verified 08/15/24 16:11 Antibiotics) of Throat [Sulfa(Sulfonamide Antibiotics)] Iodinated Contrast Media Allergy Intermediate Rash Verified 08/15/24 16:11 [IV Dye, Iodine Containing Contrast ] iodine Allergy Intermediate Rash Verified 08/15/24 16:11 Penicillins Allergy Intermediate Swelling Verified 08/15/24 16:11 codeine [Codeine] Allergy Unknown Verified 08/15/24 16:11 oxytetracycline Allergy Unknown Verified 08/15/24 16:11 [From Terramycin] oxytetracycline HCl Allergy Unknown Verified 08/15/24 16:11 [From Terramycin] Fish Containing Products Allergy Verified 08/15/24 16:11 - Past Medical History Past Medical History: Yes Neurological History: No Pertinent History ENT History: Cataracts Cardiac History: High Cholesterol, Hypertension Respiratory History: COPD, Asthma Endocrine Medical History: Diabetes Type II Musculoskelatal History: Arthritis GI Medical History: GERD, Gallbladder Disease History: No Pertinent History Pyscho-Social History: Anxiety, Depression Reproductive Disorders: No Pertinent History Comment: DIAGNOSED WITH GIANG (LIVER PROBLEM). 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 - Past Surgical History Past Surgical History: Yes Neuro Surgical History: No Pertinent History Cardiac History: No Pertinent History, Cardiac Catheterization Respiratory Surgery: No Pertinent History GI Surgical History: Appendectomy, Bowel Surgery, Cholecystectomy Genitourinary Surgical Hx: No Pertinent History Musculskeletal Surgical Hx: Orthopedic Surgery, Other Female Surgical History: Hysterectomy Other Surgical History: Right hip and femur surgery Significant Family History: no pertinent family hx - Social History Smoking Status: Never smoker Exposure to second hand smoke: No Alcohol: None Drug Use: none - Social Determinants of Health Will the patient participate in the screening: Declined to provide Do you worry about a steady place to live?: No In the past 12 months,have you had to go without utilities?: No Have you or anyone in your house had to go without enough: No Transportation Issues: No Has anyone in your support network made you feel unsafe?: No Does the patient want assistance with any of the above?: No Comment: per ems, pt has bed bugs and roaches at home " Medications & Allergies Home Medications: Home Medication List Gabapentin 300 mg PO TID 03/29/19 [History Confirmed 08/16/24] Citalopram Hydrobromide 20 mg* [ceLEXa 20 MG] 40 mg PO DAILY 10/12/22 [History Confirmed 08/16/24] Aspirin EC 81 mg [Ecotrin 81 mg] 1 tab PO DAILY 06/08/23 [History Confirmed 08/15/24] Atorvastatin Calcium [Lipitor] 1 tab PO DAILY 06/08/23 [History Confirmed 08/15/24] Lisinopril 10 mg [Zestril 10 MG] 1 tab PO DAILY 06/08/23 [History Confirmed 08/15/24] Albuterol Sulfate Mdi [ALBUTEROL/Proair Hfa MDI] 2 puff IH Q6HPRN PRN 03/16/24 [History Confirmed 08/15/24] Ascorbic Acid 500 mg [Vitamin C 500 MG] 500 mg PO DAILY 03/16/24 [History Confirmed 08/15/24] Meclizine HCl 12.5 mg PO TID 03/16/24 [History Confirmed 08/16/24] PANTOPRAZOLE 40 mg Tablet [Protonix 40MG Tablet] 40 mg PO DAILY 03/16/24 [History Confirmed 08/15/24] clonazePAM [Clonazepam] 0.5 mg PO BID 03/16/24 [History Confirmed 08/15/24] Levofloxacin [Levaquin 500 MG Tablet] 500 mg PO DAILY #7 tablet 08/11/24 [Rx Confirmed 08/16/24] Allergies/Adverse Reactions: Allergies Allergy/AdvReac Type Severity Reaction Status Date / Time Sulfa (Sulfonamide Allergy Severe Tightness Verified 08/15/24 16:11 Antibiotics) of Throat [Sulfa(Sulfonamide Antibiotics)] Iodinated Contrast Media Allergy Intermediate Rash Verified 08/15/24 16:11 [IV Dye, Iodine Containing Contrast ] iodine Allergy Intermediate Rash Verified 08/15/24 16:11 Penicillins Allergy Intermediate Swelling Verified 08/15/24 16:11 codeine [Codeine] Allergy Unknown Verified 08/15/24 16:11 oxytetracycline Allergy Unknown Verified 08/15/24 16:11 [From Terramycin] oxytetracycline HCl Allergy Unknown Verified 08/15/24 16:11 [From Terramycin] Fish Containing Products Allergy Verified 08/15/24 16:11 - Past Medical History Past Medical History: Yes Neurological History: No Pertinent History ENT History: Cataracts Cardiac History: High Cholesterol, Hypertension Respiratory History: COPD, Asthma Endocrine Medical History: Diabetes Type II Musculoskelatal History: Arthritis GI Medical History: GERD, Gallbladder Disease History: No Pertinent History Pyscho-Social History: Anxiety, Depression Reproductive Disorders: No Pertinent History Comment: DIAGNOSED WITH GIANG (LIVER PROBLEM). 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 - Past Surgical History Past Surgical History: Yes Neuro Surgical History: No Pertinent History Cardiac History: No Pertinent History, Cardiac Catheterization Respiratory Surgery: No Pertinent History GI Surgical History: Appendectomy, Bowel Surgery, Cholecystectomy Genitourinary Surgical Hx: No Pertinent History Musculskeletal Surgical Hx: Orthopedic Surgery, Other Female Surgical History: Hysterectomy Other Surgical History: Right hip and femur surgery Significant Family History: no pertinent family hx - Social History Smoking Status: Never smoker Exposure to second hand smoke: No Alcohol: None Drug Use: none - Social Determinants of Health Will the patient participate in the screening: Declined to provide Do you worry about a steady place to live?: No In the past 12 months,have you had to go without utilities?: No Have you or anyone in your house had to go without enough: No Transportation Issues: No Has anyone in your support network made you feel unsafe?: No Does the patient want assistance with any of the above?: No Comment: per ems, pt has bed bugs and roaches at home - Physical Exam Vital Signs: Vital Signs - 24 hr Temp Pulse Resp BP Pulse Ox 08/17/24 14:28 61 18 98 08/17/24 11:43 98.7 F 60 18 101/47 98 08/17/24 10:28 58 L 16 98 08/17/24 08:00 97.3 F 63 16 104/47 98 08/17/24 05:25 62 20 98 08/17/24 04:00 65 14 97/46 96 08/16/24 23:41 98.3 F 70 19 97/44 97 08/16/24 20:00 98.0 F 79 16 93 L 08/16/24 19:15 71 20 96 Additional Findings: 08/17/24 17:32 nad no scleral icterus neck symmetric nonlabored resps reg rate nd, soft, mild ttp llq no r/g. no edema gcs 15 rectal external skin tag no blood. no hemorrhoids 08/17/24 17:34 Results - Labs Lab/Micro Results: Lab Results-Last 24 Hours 08/16/24 08/16/24 08/17/24 Range/Units 04:50 04:57 05:05 WBC (3.98-10.04) x10^3/uL RBC (3.93-5.22) x10^6/uL Hgb (11.2-15.7) g/dL Hct (34.1-44.9) % MCV (79.4-94.8) fL MCH (25.6-32.2) pg MCHC (32.2-35.5) g/dL RDW (11.7-14.4) % Plt Count (182-369) x10^3/uL MPV (9.4-12.3) fL Segmented Neutrophils Lymphocytes (Manual) (19.3-51.7) % Monocytes (Manual) (4.7-12.5) % Hypochromia Platelet Estimate (NORMAL) RBC Morphology Smear Path Review Sodium 132 L (135-145) mmol/L Potassium 3.9 D (3.5-5.1) mmol/L Chloride 95 L (98-107) mmol/L Carbon Dioxide 37 H (22-30) mmol/L Anion Gap 3.3 L (5-15) MEQ/L BUN 31 H (7-17) mg/dL Creatinine 0.74 (0.52-1.04) mg/dL Estimated GFR 81.7 ML/MIN Glucose 121 H (74-106) mg/dL Calcium 7.5 L (8.4-10.2) mg/dL Total Bilirubin 0.80 (0.2-1.3) mg/dL AST 29 (14-36) U/L ALT 13 (0-35) U/L Alkaline Phosphatase 62 (38-126) U/L C-Reactive Prot, Quant 42 H (0-10) mg/L Serum Total Protein 5.1 L (6.3-8.2) g/dL Albumin 2.5 L (3.5-5.0) g/dL 08/17/24 Range/Units 05:20 WBC 27.3 H* (3.98-10.04) x10^3/uL RBC 3.07 L (3.93-5.22) x10^6/uL Hgb 8.6 L (11.2-15.7) g/dL Hct 27.7 L (34.1-44.9) % MCV 90.2 (79.4-94.8) fL MCH 28.0 (25.6-32.2) pg MCHC 31.0 L (32.2-35.5) g/dL RDW 14.7 H (11.7-14.4) % Plt Count 225 (182-369) x10^3/uL MPV 9.6 (9.4-12.3) fL Segmented Neutrophils Pending Lymphocytes (Manual) 5 L (19.3-51.7) % Monocytes (Manual) 11 (4.7-12.5) % Hypochromia 2+ Platelet Estimate NORMAL (NORMAL) RBC Morphology ABNORMAL Smear Path Review Sodium (135-145) mmol/L Potassium (3.5-5.1) mmol/L Chloride (98-107) mmol/L Carbon Dioxide (22-30) mmol/L Anion Gap (5-15) MEQ/L BUN (7-17) mg/dL Creatinine (0.52-1.04) mg/dL Estimated GFR ML/MIN Glucose (74-106) mg/dL Calcium (8.4-10.2) mg/dL Total Bilirubin (0.2-1.3) mg/dL AST (14-36) U/L ALT (0-35) U/L Alkaline Phosphatase (38-126) U/L C-Reactive Prot, Quant (0-10) mg/L Serum Total Protein (6.3-8.2) g/dL Albumin (3.5-5.0) g/dL Microbiology 08/16/24 20:00 Gram Stain - Final Sputum - Expectorant 08/15/24 Unknown Urine Culture - Final Catherized NO GROWTH 08/15/24 18:18 Blood Culture - Preliminary Blood 08/15/24 18:10 Blood Culture - Preliminary Blood - Radiology Impressions Radiology Exams & Impressions: Radiology Procedures Category Date Time Status ABDOMEN AND PELVIS W/0 CONTRAS [CT] Stat Exams 08/15/24 16:57 Completed CHEST WITHOUT CONTRAST [CT] Stat Exams 08/15/24 16:58 Completed HEAD WITHOUT CONTRAST [CT] Stat Exams 08/15/24 18:23 Completed - Other Procedures and Tests Respiratory Therapy 08/16/24 16:46 Sputum Specimen Obtain .as ordered Assessment/Plan (1) GI bleed Current Visit: Yes Status: Acute Code(s): K92.2 - GASTROINTESTINAL HEMORRHAGE, UNSPECIFIED (2) Abdominal pain Current Visit: No Status: Acute Assessment & Plan: 78yo female admit with AMS, confusion, abd pain nausea, diarrhea, bloody mucoid stools, leukocytosis. ? ischemic colitis. ?enteritis. mild pain on exam. ct scan images personally reviewed surprisingly not really any colitis, does have some distended small bowel. dramatic clinical improvement overnight. gen surg c/s for hemoccult positive/GIB. patient and family are adamently declining endoscopy at this time given her dramatic improvement and frailty/likely failure of prep. -monitor clinical course. -stool studies pending c diff pending. -continue abx. -management medical, call for any concerns or abdominal worsening. If worsening/failure to improve would certainly consider repeat abdominal ct. Code(s): R10.9 - UNSPECIFIED ABDOMINAL PAIN
[2024-08-18] MEDS: PROVENTIL 2.5 MG/3 ML NEB IH PRN (02:40)
[2024-08-18 05:21] LABS: Hematocrit 25.6 % (34.1-44.9); Hemoglobin 7.7 g/dL (11.2-15.7); Mean Cell Volume 91.4 fL (79.4-94.8); Mean Corpuscular Hemoglobin 27.5 pg (25.6-32.2); Mean Corpuscular Hgb Concent. 30.1 g/dL (32.2-35.5); Mean Platelet Volume 9.5 fL (9.4-12.3); Platelet Count 187 x10^3/uL (182-369); Red Cell Distribution Width 14.6 % (11.7-14.4)
--- NOTE | 2024-08-18 05:22 | PCM.NOTE ---
Date and Time: 08/18/24 0520 Subjective Assessment: 78-year-old with a history of CAD, depression, COPD on home oxygen, hypertension, and GERD, who presented 08/16/23 with diarrhea and abdominal pain. Patient initially presented 4 days ago with cough and dyspnea, was diagnosed with pneumonia, and discharged home on Levaquin. However, patient continues to feel poorly, with progressive weakness not relieved by antibiotics or nebulizer treatment. Daughter noticed the patient appeared to be more lethargic and confused today. She also fell on Wednesday and on Wednesday prior to admission, although no trauma, no loss of consciousness. In the ED, she continued to have diarrhea, and developed nausea and vomiting as well. Patient denies any fever or sick contacts. No dyspnea today. Cough is generally improved. 08/16/24: Met with patient and daughter at bedside. Endorses some improvement but still remains confused. Had an episode of hematochezia. WBC count is increasing. Vomiting has resolved. Patient remains weak and short of breath - at baseline oxygen. Patient does have history of diverticulitis per daughter. CT abdomen showing gastritis. CT head and chest negative for acute findings. Patient allergic to penicillins - will start ceftriaxone and flagyl. 08/17/24: No overnight events noted. Patient A&O x 4 this morning. Endorses she is feeling much better today. Has complaints of shortness of breath and cough with white sputum. She is at her baseline oxygen of 2L today. Denies N/V/D. Still has some blood in her stools. Surgery consulted and recommended colonoscopy- patient refuses- pending official consult today. She has h/o of diverticulitis. Concern that this may be what is going on although CT scan showing gastritis. Ceftriaxone and Flagyl started yesterday with noted improvement to WBC. Will continue abx. Objective Data Vital Signs: Vital Signs - 24 hr Temp Pulse Resp BP Pulse Ox 08/18/24 04:00 98.2 F 72 20 109/52 95 08/18/24 02:40 70 20 94 L 08/18/24 00:00 98.2 F 67 19 101/52 95 08/17/24 19:57 98.8 F 65 18 100/57 97 08/17/24 19:15 63 18 97 08/17/24 16:00 98.8 F 61 20 99/49 97 08/17/24 14:28 61 18 98 08/17/24 11:43 98.7 F 60 18 101/47 98 08/17/24 10:28 58 L 16 98 08/17/24 08:00 97.3 F 63 16 104/47 98 08/17/24 05:25 62 20 98 Pain Assessment - Last Documented Pain Intensity 0 [facility] Intake and Output: Intake & Output 08/15/24 08/16/24 08/17/24 08/18/24 11:59 11:59 11:59 11:59 Intake Total 995 3722 360 Output Total 200 2325 825 Balance 795 1397 -465 Weight 59.1 kg Lab Results: Lab Results-Last 24 Hours 08/16/24 08/16/24 08/17/24 Range/Units 04:50 04:57 05:05 WBC (3.98-10.04) x10^3/uL RBC (3.93-5.22) x10^6/uL Hgb (11.2-15.7) g/dL Hct (34.1-44.9) % MCV (79.4-94.8) fL MCH (25.6-32.2) pg MCHC (32.2-35.5) g/dL RDW (11.7-14.4) % Plt Count (182-369) x10^3/uL MPV (9.4-12.3) fL Segmented Neutrophils Lymphocytes (Manual) (19.3-51.7) % Monocytes (Manual) (4.7-12.5) % Hypochromia Platelet Estimate (NORMAL) RBC Morphology Smear Path Review Sodium 132 L (135-145) mmol/L Potassium 3.9 D (3.5-5.1) mmol/L Chloride 95 L (98-107) mmol/L Carbon Dioxide 37 H (22-30) mmol/L Anion Gap 3.3 L (5-15) MEQ/L BUN 31 H (7-17) mg/dL Creatinine 0.74 (0.52-1.04) mg/dL Estimated GFR 81.7 ML/MIN Glucose 121 H (74-106) mg/dL Calcium 7.5 L (8.4-10.2) mg/dL Total Bilirubin 0.80 (0.2-1.3) mg/dL AST 29 (14-36) U/L ALT 13 (0-35) U/L Alkaline Phosphatase 62 (38-126) U/L C-Reactive Prot, Quant 42 H (0-10) mg/L Serum Total Protein 5.1 L (6.3-8.2) g/dL Albumin 2.5 L (3.5-5.0) g/dL 08/17/24 Range/Units 05:20 WBC 27.3 H* (3.98-10.04) x10^3/uL RBC 3.07 L (3.93-5.22) x10^6/uL Hgb 8.6 L (11.2-15.7) g/dL Hct 27.7 L (34.1-44.9) % MCV 90.2 (79.4-94.8) fL MCH 28.0 (25.6-32.2) pg MCHC 31.0 L (32.2-35.5) g/dL RDW 14.7 H (11.7-14.4) % Plt Count 225 (182-369) x10^3/uL MPV 9.6 (9.4-12.3) fL Segmented Neutrophils Pending Lymphocytes (Manual) 5 L (19.3-51.7) % Monocytes (Manual) 11 (4.7-12.5) % Hypochromia 2+ Platelet Estimate NORMAL (NORMAL) RBC Morphology ABNORMAL Smear Path Review Sodium (135-145) mmol/L Potassium (3.5-5.1) mmol/L Chloride (98-107) mmol/L Carbon Dioxide (22-30) mmol/L Anion Gap (5-15) MEQ/L BUN (7-17) mg/dL Creatinine (0.52-1.04) mg/dL Estimated GFR ML/MIN Glucose (74-106) mg/dL Calcium (8.4-10.2) mg/dL Total Bilirubin (0.2-1.3) mg/dL AST (14-36) U/L ALT (0-35) U/L Alkaline Phosphatase (38-126) U/L C-Reactive Prot, Quant (0-10) mg/L Serum Total Protein (6.3-8.2) g/dL Albumin (3.5-5.0) g/dL Multi-Disciplinary Progress Notes: Multi-Disciplinary Progress Notes 08/17/24 16:04 Case Management Note by Yasemin Jane PT EVAL FAXED TO [facility] Initialized on 08/17/24 16:04 - END OF NOTE 08/17/24 13:00 (created 08/17/24 15:34) Case Management Note by Yasemin Jane PATIENT MUCH MORE ALERT TODAY, UP TO CHAIR. PER STAFF PATIENT ASSIST OF 2. DAUGHTER REQUESTING A REHAB STAY. S/W PATIENT ABOUT REHAB STAY- PATIENT RESISTANT AT THIS TIME. PATIENT WAS JUST THERE IN [place]UL[place]. PATIENT HOPING TO GET HER STRENGTH BACK AND RETURN HOME WITH HER DAUGHTER AND HUSBANDS ASSISTANCE. PATIENT OPEN TO RETURNING TO [place] FOR SHORT TERM REHAB STAY IF ABSOLUTELY NEEDED. REFERRAL FAXED- WILL NEED TO SEND PT EVAL WHEN AVAILABLE PASRR DONE- NO LEVEL II REQUIRED. COPIES PLACED IN CHART AND SENT TO [facility] WITH REFERRAL Initialized on 08/17/24 15:34 - END OF NOTE Assessment/Plan (1) Gastritis Current Visit: Yes Status: Acute Assessment & Plan: -CT demonstrates New fluid distended stomach and small bowel loops, ileus versus gastroenteritis. Also new diffuse colonic diarrhea -patient with bloody/watery stools - negative for cdiff - has h/o diverticulitis - will add ceftriaxone/flagyl for coverage -consult surgery -occult stools + 08/17: -No n/v/d -+blood in stool -surg consult pending -Continue flagyl/ceftriaxone Code(s): K29.70 - GASTRITIS, UNSPECIFIED, WITHOUT BLEEDING (2) GI bleed Current Visit: Yes Status: Acute Assessment & Plan: -ct as stated above -occult stools positive -surgery consulted -hold asa/lovenox -scd's -monitor hgb q8h -Protonix Code(s): K92.2 - GASTROINTESTINAL HEMORRHAGE, UNSPECIFIED (3) Leukocytosis Current Visit: No Status: Acute Assessment & Plan: -reactive vs infective process ? -Start ceftriaxone/flagyl ? diverticulitis - pt does have h/o - -WBC reviewed at 36.8 on admission now increased at 42.5-trend -UA negative - ucult NGTD -cdiff negative -CT abdomen/pelvis showing gastritis -CT chest negative -CT head negative -continue IVF -PRN anti-emetics -blood and urine cultures pending 08/17/24 -WBC reviewed and improving at 27.3<42.3 -continue ceftriaxone/flagyl -Ucult with ngtd -blood and sputum cult pending Code(s): D72.829 - ELEVATED WHITE BLOOD CELL COUNT, UNSPECIFIED (4) Confusion Current Visit: Yes Status: Acute Assessment & Plan: -Most likely secondary to infection - improved some -Head ct reviewed 08/17/24: -resolved Code(s): R41.0 - DISORIENTATION, UNSPECIFIED (5) Depression Current Visit: Yes Status: Acute Assessment & Plan: -continue home celexa Code(s): F32.A - DEPRESSION, UNSPECIFIED (6) COPD (chronic obstructive pulmonary disease) Current Visit: No Status: Acute Assessment & Plan: -supplemental oxygen with spo2 goal >91% - on baseline oxygen at -DuoNebs/INH -RT eval and follow Code(s): K29.70 - GASTRITIS, UNSPECIFIED, WITHOUT BLEEDING (2) GI bleed Current Visit: Yes Status: Acute Code(s): K92.2 - GASTROINTESTINAL HEMORRHAGE, UNSPECIFIED (3) Leukocytosis Current Visit: No Status: Acute Code(s): D72.829 - ELEVATED WHITE BLOOD CELL COUNT, UNSPECIFIED (4) Confusion Current Visit: Yes Status: Acute Code(s): R41.0 - DISORIENTATION, UNSPECIFIED (5) Depression Current Visit: Yes Status: Acute Code(s): F32.A - DEPRESSION, UNSPECIFIED (6) COPD (chronic obstructive pulmonary disease) Current Visit: No Status: Acute (7) HTN (hypertension) Current Visit: No Status: Acute Code(s): I10 - ESSENTIAL (PRIMARY) HYPERTENSION
[2024-08-18 05:46] LABS: ALBUMIN 2.4 g/dL (3.5-5.0); ANION GAP 3.6 MEQ/L (5-15); BILIRUBIN,TOTAL 0.3 mg/dL (0.2-1.3); Calcium 7.9 mg/dL (8.4-10.2); Creatinine 1 0.73 mg/dL (0.52-1.04); EST GLOMERULAR FILTRATION RATE 83.1 ML/MIN; Potassium 4.1 mmol/L (3.5-5.1); Total Protein 4.9 g/dL (6.3-8.2)
--- NOTE | 2024-08-18 12:00 | PCM.DS ---
Discharge Summary Date of Admission: 08/15/24 22:06 Date of Discharge: 08/18/24 Admitting Physician: SUMAN SMALLS MD Consults: Consults on Case 08/16/24 13:00 Consult Surgery ROUTINE Primary Care Provider: LUCIAN,RENETTA Allergies Allergies Sulfa (Sulfonamide Antibiotics) [Sulfa(Sulfonamide Antibiotics)] Allergy (Severe, Verified 08/15/24 16:11) Tightness of Throat Iodinated Contrast Media [IV Dye, Iodine Containing Contrast ] Allergy (Intermediate, Verified 08/15/24 16:11) Rash iodine Allergy (Intermediate, Verified 08/15/24 16:11) Rash Penicillins Allergy (Intermediate, Verified 08/15/24 16:11) Swelling codeine [Codeine] Allergy (Unknown, Verified 08/15/24 16:11) unknown, states "just told not to take it oxytetracycline [From Terramycin] Allergy (Unknown, Verified 08/15/24 16:11) oxytetracycline HCl [From Terramycin] Allergy (Unknown, Verified 08/15/24 16:11) Fish Containing Products Allergy (Verified 08/15/24 16:11) Hospital Summary - Hospital Course Hospital Course: 78-year-old with a history of CAD, depression, COPD on home oxygen, hypertension, and GERD, who presented 08/16/23 with diarrhea and abdominal pain. Patient initially presented 4 days ago with cough and dyspnea, was diagnosed with pneumonia, and discharged home on Levaquin. However, patient continues to feel poorly, with progressive weakness not relieved by antibiotics or nebulizer treatment. Daughter noticed the patient appeared to be more lethargic and confused today. She also fell on Wednesday and on Wednesday prior to admission, although no trauma, no loss of consciousness. In the ED, she continued to have diarrhea, and developed nausea and vomiting as well. Patient denies any fever or sick contacts. No dyspnea today. Cough is generally improved. 08/16/24: Met with patient and daughter at bedside. Endorses some improvement but still remains confused. Had an episode of hematochezia. WBC count is increasing. Vomiting has resolved. Patient remains weak and short of breath - at baseline oxygen. Patient does have history of diverticulitis per daughter. CT abdomen showing gastritis. CT head and chest negative for acute findings. Patient allergic to penicillins - will start ceftriaxone and flagyl. 08/17/24: No overnight events noted. Patient A&O x 4 this morning. Endorses she is feeling much better today. Has complaints of shortness of breath and cough with white sputum. She is at her baseline oxygen of 2L today. Denies N/V/D. Still has some blood in her stools. Surgery consulted and recommended colonoscopy- patient refuses- pending official consult today. She has h/o of diverticulitis. Concern that this may be what is going on although CT scan showing gastritis. Ceftriaxone and Flagyl started yesterday with noted improvement to WBC. Will continue abx. 08/18: Patient feeling much better today. WBC count now wnl. No hematochezia. No abdominal pain. Nausea/vomiting resolved. No fever. At baseline oxygen. Patient refused surgical intervention colonoscopy. She is to discharge to SNF today. Will send with cipro and flagyl. She is to follow up with surgery if she decides on colonoscopy. She will need hgb closely followed at SNF. Discharge Note New Diagnosis: Gastroenteritis New Medications: Cipro/flagyl Follow Up: PCP/surgery Latest Assessment & Plan (1) Gastritis Current Visit: Yes Status: Acute Assessment & Plan: -CT demonstrates New fluid distended stomach and small bowel loops, ileus versus gastroenteritis. Also new diffuse colonic diarrhea -patient with bloody/watery stools - negative for cdiff - has h/o diverticulitis - will add ceftriaxone/flagyl for coverage -consult surgery -occult stools + 08/17: -No n/v/d -+blood in stool -surg consult pending -Continue flagyl/ceftriaxone 08/18: -DC to SNF on cipro/flagyl Code(s): K29.70 - GASTRITIS, UNSPECIFIED, WITHOUT BLEEDING (2) GI bleed Current Visit: Yes Status: Acute Assessment & Plan: -ct as stated above -occult stools positive -surgery consulted -hold asa/lovenox -scd's -monitor hgb q8h -Protonix 08/18: -declines colonoscopy - can follow up with surgery OP Code(s): K92.2 - GASTROINTESTINAL HEMORRHAGE, UNSPECIFIED (3) Leukocytosis Current Visit: No Status: Acute Assessment & Plan: -reactive vs infective process ? -Start ceftriaxone/flagyl ? diverticulitis - pt does have h/o - -WBC reviewed at 36.8 on admission now increased at 42.5-trend -UA negative - ucult NGTD -cdiff negative -CT abdomen/pelvis showing gastritis -CT chest negative -CT head negative -continue IVF -PRN anti-emetics -blood and urine cultures pending 08/17/24 -WBC reviewed and improving at 27.3<42.3 -continue ceftriaxone/flagyl -Ucult with ngtd -blood and sputum cult pending 08/18: -resolved -continue cipro/flagyl Ucult ngtd bcult and sputum ngtd Code(s): D72.829 - ELEVATED WHITE BLOOD CELL COUNT, UNSPECIFIED (4) Confusion Current Visit: Yes Status: Acute Assessment & Plan: -Most likely secondary to infection - improved some -Head ct reviewed 08/17/24: -resolved Code(s): R41.0 - DISORIENTATION, UNSPECIFIED (5) Depression Current Visit: Yes Status: Acute Assessment & Plan: -continue home celexa Code(s): F32.A - DEPRESSION, UNSPECIFIED (6) COPD (chronic obstructive pulmonary disease) Current Visit: No Status: Acute Assessment & Plan: -supplemental oxygen with spo2 goal >91% - on baseline oxygen at -DuoNebs/INH -RT eval and follow I spent 35 minutes [id number] with the patient on the day of discharge performing discharge exam, discussing hospital stay and discharge instructions with patient and caregivers, preparation of discharge records, prescriptions & referral forms and addressing any questions/concerns the patient had as documented above. - Vitals & Intake/Output Vital Signs: Vital Signs Temperature 98.7 F 08/18/24 08:00 Pulse Rate 71 08/18/24 11:33 Respiratory Rate 16 08/18/24 11:33 Blood Pressure 122/58 08/18/24 08:00 O2 Sat by Pulse Oximetry 97 08/18/24 11:33 Intake & Output: Intake & Output 08/15/24 08/16/24 08/17/24 08/18/24 11:59 11:59 11:59 11:59 Intake Total 995 3722 600 Output Total 200 2325 1125 Balance 795 1397 -525 Weight 59.1 kg - Lab Result Diagrams: 08/18/24 05:13 08/18/24 05:13 Lab Results-Last 24 Hrs: Lab Results-Last 24 Hours 08/16/24 08/18/24 08/18/24 Range/Units 04:57 05:13 05:13 WBC 10.0 (3.98-10.04) x10^3/uL RBC 2.80 L (3.93-5.22) x10^6/uL Hgb 7.7 L (11.2-15.7) g/dL Hct 25.6 L (34.1-44.9) % MCV 91.4 (79.4-94.8) fL MCH 27.5 (25.6-32.2) pg MCHC 30.1 L (32.2-35.5) g/dL RDW 14.6 H (11.7-14.4) % Plt Count 187 (182-369) x10^3/uL MPV 9.5 (9.4-12.3) fL Smear Path Review Sodium 139 D (135-145) mmol/L Potassium 4.1 (3.5-5.1) mmol/L Chloride 105 (98-107) mmol/L Carbon Dioxide 35 H (22-30) mmol/L Anion Gap 3.6 L (5-15) MEQ/L BUN 20 H (7-17) mg/dL Creatinine 0.73 (0.52-1.04) mg/dL Estimated GFR 83.1 ML/MIN Glucose 156 H (74-106) mg/dL Calcium 7.9 L (8.4-10.2) mg/dL Total Bilirubin 0.30 (0.2-1.3) mg/dL AST 24 (14-36) U/L ALT 12 (0-35) U/L Alkaline Phosphatase 71 (38-126) U/L Serum Total Protein 4.9 L (6.3-8.2) g/dL Albumin 2.4 L (3.5-5.0) g/dL Micro Results-Entire Visit: Microbiology 08/16/24 20:00 Gram Stain - Final Sputum - Expectorant 08/15/24 Unknown Urine Culture - Final Catherized NO GROWTH 08/15/24 18:18 Blood Culture - Preliminary Blood 08/15/24 18:10 Blood Culture - Preliminary Blood - Procedures and Test Procedures and Tests throughout Hospitalization: Therapy Orders & Screens 08/15/24 23:19 Oxygen Nasal Cannula 2 lpm Comment: Diagnosis: Diarrhea leukocytosis Respiratory Therapy Consult ONCE Comment: Reason For Exam: Diagnosis: Diarrhea leukocytosis 08/16/24 00:00 Respiratory Therapy Assessment DAILY Comment: Diagnosis: Diarrhea leukocytosis 08/16/24 16:46 Sputum Specimen Obtain .as ordered Comment: Diagnosis: Diarrhea 08/17/24 12:39 PT Eval & Treat (MD Order) ONCE Reason for Eval:: weakness, possible rehab stay Diagnosis: Diarrhea 08/18/24 02:54 Flutter Therapy UD Comment: Diagnosis: Diarrhea Discharge Exam General Appearance: no apparent distress Neurologic Exam: alert, oriented x 3, cooperative Eye Exam: PERRL Ears, Nose, Throat Exam: normal ENT inspection Neck Exam: normal inspection Respiratory Exam: diminished breath sounds Cardiovascular Exam: regular rate/rhythm, normal heart sounds Gastrointestinal/Abdomen Exam: soft, normal bowel sounds Pelvic Exam: deferred Rectal Exam: deferred Back Exam: normal inspection Extremity Exam: normal inspection Skin Exam: pale Final Diagnosis/Problem List - Final Discharge Diagnosis/Problem (1) Gastritis Current Visit: Yes Status: Acute Code(s): K29.70 - GASTRITIS, UNSPECIFIED, WITHOUT BLEEDING (2) GI bleed Current Visit: Yes Status: Acute Code(s): K92.2 - GASTROINTESTINAL HEMORRHAGE, UNSPECIFIED (3) Leukocytosis Current Visit: No Status: Resolved Code(s): D72.829 - ELEVATED WHITE BLOOD CELL COUNT, UNSPECIFIED (4) Confusion Current Visit: Yes Status: Resolved Code(s): R41.0 - DISORIENTATION, UNSPECIFIED (5) Depression Current Visit: Yes Status: Chronic Code(s): F32.A - DEPRESSION, UNSPECIFIED (6) COPD (chronic obstructive pulmonary disease) Current Visit: No Status: Chronic (7) HTN (hypertension) Current Visit: No Status: Chronic Code(s): I10 - ESSENTIAL (PRIMARY) HYPERTENSION - Discharge Discharge Date: 08/18/24 Disposition: DC TO ANY "OTHER" CARE HOME Condition: Stable Prescriptions: New Ciprofloxacin [Cipro 500 MG] 500 mg PO BID 10 Days #20 tablet Metronidazole 500 mg [Flagyl 500 MG] 500 mg PO BID 10 Days #20 tablet Loperamide HCl 2 mg [Imodium 2 mg] 2 mg PO PRN PRN cap PRN Reason: Diarrhea Tramadol HCl 50 mg [Ultram 50 mg] 25 mg PO Q6H PRN PRN tablet PRN Reason: Pain Continue Gabapentin 300 mg PO TID Citalopram Hydrobromide 20 mg* [ceLEXa 20 MG] 40 mg PO DAILY Lisinopril 10 mg [Zestril 10 MG] 1 tab PO DAILY Atorvastatin Calcium [Lipitor] 1 tab PO DAILY Meclizine HCl 12.5 mg PO TID clonazePAM [Clonazepam] 0.5 mg PO BID Ascorbic Acid 500 mg [Vitamin C 500 MG] 500 mg PO DAILY Albuterol Sulfate Mdi [ALBUTEROL/Proair Hfa MDI] 2 puff IH Q6HPRN PRN PRN Reason: Shortness Of Breath Changed PANTOPRAZOLE 40 mg Tablet [Protonix 40MG Tablet] 40 mg PO BID #0 Discontinued Aspirin EC 81 mg [Ecotrin 81 mg] 1 tab PO DAILY Levofloxacin [Levaquin 500 MG Tablet] 500 mg PO DAILY #7 tablet Additional Instructions: Will need CBC check daily for 7 days Hold ASA for one week Follow up with: RENETTA EPSTEIN MD [Primary Care Provider] - 08/28/24 2:30 pm
[2024-08-18 13:05] VITALS: BP 131/60; PULSE 73; RESP 20; TEMP 98; O2SAT 92
[2024-08-18 13:06] LABS: Hematocrit 30.5 % (34.1-44.9); Hemoglobin 9.2 g/dL (11.2-15.7)
[2024-08-19 19:28] LABS: Neutrophils 84 % (34.0-71.1)
== END 2024-08-18 13:43 ==
LOC: ED 16:08 → MED SURG 22:06
PROVIDERS: ADMIT Internal Medicine; ATTEND Internal Medicine
DX: K29.70 Gastritis, unspecified, without bleeding (principal); Z59.19 Other inadequate housing; D72.829 Elevated white blood cell count, unspecified; R41.0 Disorientation, unspecified; F32.A Depression, unspecified; J44.9 Chronic obstructive pulmonary disease, unspecified; I10 Essential (primary) hypertension; E11.9 Type 2 diabetes mellitus without complications; E78.5 Hyperlipidemia, unspecified; R10.9 Unspecified abdominal pain; I25.10 Atherosclerotic heart disease of native coronary artery without angina pectoris; K21.9 Gastro-esophageal reflux disease without esophagitis; R19.7 Diarrhea, unspecified; R11.2 Nausea with vomiting, unspecified; Z99.81 Dependence on supplemental oxygen; Z79.899 Other long term (current) drug therapy
CPT/HCPCS: 36415; 36600; 51702; 70450; 71250; 74176; 80048; 80053; 81001; 82150; 82375; 82803; 83605; 83690; 84145; 85014; 85018; 85025; 85027; 86140; 87040; 87070; 87086; 87493; 94640; 94667; 94762; 96374; 96375; 97161; 97530; 99285; G0328; Q3014; 82274; 93268; J0696; J1650; J1885; J2270; J2405; J7609; A9270-GY; G0378

== ENCOUNTER 2024-09-01 16:50 | Emergency (ER) | payer MEDICARE ==
[2024-09-01 16:58] VITALS: TEMP 96.8
--- NOTE | 2024-09-01 18:29 | ERPHSYRPT ---
- History of Present Illness Source: patient Exam Limitations: no limitations Patient Subjective Stated Complaint: Pt c/o of low blood pressure and just not feeling right Triage Nursing Assessment: Pt brought to the ER by EMS, vitals wnl, denies any new pain, pulses normal, skin n/w/d, no difficulty breathing, doesn't appear to be in any distress Hx Tetanus, Diphtheria Vaccination/Date Given: Yes Hx Influenza Vaccination/Date Given: No Hx Pneumococcal Vaccination/Date Given: Yes <CARLOS CORTEZ - Last Filed: 09/01/24 22:15> <GREER GARCÍA - Last Filed: 09/02/24 00:41> - History of Present Illness Time Seen by Provider: 09/01/24 18:10 Physician History: For the past 2 days pt has had a cough and today low BP. Pt denies nausea, vomiting, abdominal pain, headache, fever. (CARLOS CORTEZ) Allergies/Adverse Reactions: Sulfa (Sulfonamide Antibiotics) [Sulfa(Sulfonamide Antibiotics)] Allergy (Severe, Verified 09/01/24 16:59) Tightness of Throat Iodinated Contrast Media [IV Dye, Iodine Containing Contrast ] Allergy (Intermediate, Verified 09/01/24 16:59) Rash iodine Allergy (Intermediate, Verified 09/01/24 16:59) Rash Penicillins Allergy (Intermediate, Verified 09/01/24 16:59) Swelling codeine [Codeine] Allergy (Unknown, Verified 09/01/24 16:59) unknown, states "just told not to take it oxytetracycline [From Terramycin] Allergy (Unknown, Verified 09/01/24 16:59) oxytetracycline HCl [From Terramycin] Allergy (Unknown, Verified 09/01/24 16:59) Fish Containing Products Allergy (Verified 09/01/24 16:59) Home Medications: Gabapentin 300 mg PO TID 03/29/19 [History] Citalopram Hydrobromide 20 mg* [ceLEXa 20 MG] 40 mg PO DAILY 10/12/22 [History] Atorvastatin Calcium [Lipitor] 1 tab PO DAILY 06/08/23 [History] Lisinopril 10 mg [Zestril 10 MG] 1 tab PO DAILY 06/08/23 [History] Albuterol Sulfate Mdi [ALBUTEROL/Proair Hfa MDI] 2 puff IH Q6HPRN PRN 03/16/24 [History] Ascorbic Acid 500 mg [Vitamin C 500 MG] 500 mg PO DAILY 03/16/24 [History] Meclizine HCl 12.5 mg PO TID 03/16/24 [History] clonazePAM [Clonazepam] 0.5 mg PO BID 03/16/24 [History] Travel Risk - International Travel Have you traveled outside of the country in past 3 weeks: No - Emerging Infectious Disease Are you exhibiting symptoms associated with any current EIDs: No Symptoms: Cough: New Onset <CARLOS CORTEZ - Last Filed: 09/01/24 22:15> - Review of Systems Constitutional: No Fever Respiratory: Cough, No Dyspnea Cardiac: No Chest Pain Abdominal/Gastrointestinal: No Abdominal Pain, No Nausea, No Vomiting Neurological: No Headache <CARLOS CORTEZ - Last Filed: 09/01/24 22:15> - Past Medical History Pertinent Past Medical History: Yes Neurological History: No Pertinent History ENT History: Cataracts Cardiac History: High Cholesterol, Hypertension Respiratory History: COPD, Asthma Endocrine Medical History: Diabetes Type II Musculoskeletal History: Arthritis GI Medical History: GERD, Gallbladder Disease History: No Pertinent History Psycho-Social History: Anxiety, Depression Female Reproductive Disorders: No Pertinent History Other Medical History: DIAGNOSED WITH GIANG (LIVER PROBLEM). 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 - Past Surgical History Past Surgical History: Yes Neuro Surgical History: No Pertinent History Cardiac: No Pertinent History, Cardiac Catheterization Respiratory: No Pertinent History Gastrointestinal: Appendectomy, Bowel Surgery, Cholecystectomy Genitourinary: No Pertinent History Musculoskeletal: Orthopedic Surgery, Other Female Surgical History: Hysterectomy Other Surgical History: Right hip and femur surgery Significant Family History: no pertinent family hx - Social History Smoking Status: Never smoker Exposure to second hand smoke: No Drug Use: none Patient Lives Alone: No () - Social Determinants of Health Will the patient participate in the screening: Declined to provide Do you worry about a steady place to live?: No In the past 12 months,have you had to go without utilities?: No Transportation Issues: No Has anyone in your support network made you feel unsafe?: No Have you or anyone in your house had to go without enough: No Comment: per ems, pt has bed bugs and roaches at home <CARLOS CORTEZ - Last Filed: 09/01/24 22:15> - Physical Exam General Appearance: alert Eye Exam: eyes nml inspection Ears, Nose, Throat Exam: pharynx normal Neck Exam: normal inspection Respiratory Exam: crackles/rales (mild diffuse) Cardiovascular Exam: normal heart sounds Gastrointestinal/Abdomen Exam: normal bowel sounds Neurologic Exam: alert, cooperative Skin Exam: warm, dry SpO2 Interpretation: normal SpO2: 99 O2 Delivery: Room Air <CARLOS CORTEZ - Last Filed: 09/01/24 22:15> - Nursing Vital Signs Nursing Vital Signs: Initial Vital Signs Temperature 96.8 F 09/01/24 16:53 Pulse Rate 62 09/01/24 16:53 Blood Pressure 119/59 09/01/24 16:53 O2 Sat by Pulse Oximetry 99 09/01/24 16:53 Pain Scale Pain Intensity 0 - Course Nursing assessment & vital signs reviewed: Yes <CARLOS CORTEZ - Last Filed: 09/01/24 22:15> - Course EKG Interpreted by Me: RATE ([id number]), Sinus Rhythm, NORMAL AXIS, NORMAL INTERVALS, Non-specific ST Changes <GREER GARCÍA - Last Filed: 09/02/24 00:41> Ordered Tests: Active Orders 24 hr Category Date Time Status EKG-ER Only STAT Care 09/01/24 18:29 Active IV Insertion STAT Care 09/01/24 18:30 Active CHEST 1 VIEW (PORTABLE) Stat Exams 09/01/24 18:28 Taken AMYLASE Stat Lab 09/01/24 19:09 Completed CBC W DIFF Stat Lab 09/01/24 19:09 Completed CMP Stat Lab 09/01/24 19:09 Completed CULTURE,URINE Stat Lab 09/01/24 20:35 Received D-DIMER QUANTITATIVE Stat Lab 09/01/24 19:09 Completed LIPASE Stat Lab 09/01/24 19:09 Completed NT PRO BNPII Stat Lab 09/01/24 19:09 Completed TROPONIN Q4H Lab 09/01/24 19:09 Completed TROPONIN Q4H Lab 09/01/24 21:56 Completed TROPONIN Q4H Lab 09/02/24 02:30 Ordered UA W/RFX UR CULTURE Stat Lab 09/01/24 20:35 Completed Medication Summary Generic Name Dose Route Start Last Admin Trade Name Freq PRN Reason Stop Dose Admin Sodium Chloride 1,000 mls @ 100 mls/hr 09/01/24 18:30 09/01/24 18:57 Sodium Chloride 0.9% 1000 Ml IV 10/01/24 18:29 100 mls/hr .Q10H SONAL Administration Discontinued Medications Generic Name Dose Route Start Last Admin Trade Name Isatu PRN Reason Stop Dose Admin Sodium Chloride 1,000 mls @ 999 mls/hr 09/01/24 20:59 09/02/24 00:07 Sodium Chloride 0.9% 1000 Ml IV 09/01/24 21:59 999 mls/hr .Q1H1M STA Administration Levofloxacin/Dextrose 750 mg in 150 mls @ 100 mls/hr 09/01/24 21:43 09/01/24 23:00 Levofloxacin 750mg/150ml D5w IV 09/01/24 23:12 Not Given STAT STA Levofloxacin/Dextrose 500 mg in 100 mls @ 100 mls/hr 09/01/24 23:01 09/02/24 00:06 Levofloxacin 500mg/100ml D5w IV 09/02/24 00:00 100 mls/hr STAT STA 100 mls/hr Administration Levofloxacin/Dextrose Confirm 09/02/24 00:06 Levofloxacin 500mg/100ml D5w Administered 09/02/24 00:07 Dose 500 mg in 100 mls @ ud IV .K-MED ONE Lab/Rad Data: Laboratory Result Diagrams 09/01/24 19:09 09/01/24 19:09 Laboratory Results 09/01/24 09/01/24 09/01/24 Range/Units 21:56 20:35 19:09 WBC (3.98-10.04) x10^3/uL RBC (3.93-5.22) x10^6/uL Hgb (11.2-15.7) g/dL Hct (34.1-44.9) % MCV (79.4-94.8) fL MCH (25.6-32.2) pg MCHC (32.2-35.5) g/dL RDW (11.7-14.4) % Plt Count (182-369) x10^3/uL MPV (9.4-12.3) fL Gran % (34.0-71.1) % Immature Gran % (Auto) (0.001-0.429) % Nucleat RBC Rel Count (0.00-0.2) % Eos # (Auto) (0.04-0.36) x10^3/uL Immature Gran # (Auto) (0.001-0.031) x10^3u/L Absolute Lymphs (auto) (1.18-3.74) x10^3/uL Absolute Monos (auto) (0.24-0.86) x10^3/uL Absolute Nucleated RBC (0.00-0.012) x10^3u/L Lymphocytes % (19.3-51.7) % Monocytes % (4.7-12.5) % Eosinophils % (0.7-5.8) % Basophils % (0.1-1.2) % Absolute Granulocytes (1.56-6.13) x10^3/uL Basophils # (0.01-0.08) x10^3/uL D-Dimer 0.92 H* (0.0-0.50) mg/L Sodium (135-145) mmol/L Potassium (3.5-5.1) mmol/L Chloride (98-107) mmol/L Carbon Dioxide (22-30) mmol/L Anion Gap (5-15) MEQ/L BUN (7-17) mg/dL Creatinine (0.52-1.04) mg/dL Estimated GFR ML/MIN Glucose (74-106) mg/dL Calcium (8.4-10.2) mg/dL Total Bilirubin (0.2-1.3) mg/dL AST (14-36) U/L ALT (0-35) U/L Alkaline Phosphatase (38-126) U/L Troponin I < 0.012 (0.000-0.033) ng/mL NT-Pro-B Natriuret Pep (<300) pg/mL Serum Total Protein (6.3-8.2) g/dL Albumin (3.5-5.0) g/dL Amylase (30-110) U/L Lipase (23-300) U/L Urine Color Yellow (Yellow) Urine Appearance Clear (Clear) Urine pH 5.5 (4.6-8.0) Ur Specific [place] 1.020 (1.005-1.030) Urine Protein Negative (Negative) Urine Glucose (UA) Negative (Negative) mg/dL Urine Ketones Negative (Negative) Urine Blood Negative (Negative) Urine Nitrite Negative (Negative) Urine Bilirubin Negative (Negative) Urine Urobilinogen 0.2 (0.2) mg/dL Ur Leukocyte Esterase Negative (Negative) U Hyaline Cast (Auto) NONE SEEN (0-2) /LPF Urine Microscopic RBC 0-2 (0-5) /HPF Urine Microscopic WBC 0-2 (0-5) /HPF Ur Epithelial Cells None Seen (None Seen) /HPF Urine Bacteria None Seen (None Seen) /HPF Urine Culture Reflexed YES (NO) 09/01/24 09/01/24 09/01/24 Range/Units 19:09 19:09 19:09 WBC 6.2 (3.98-10.04) x10^3/uL RBC 3.37 L (3.93-5.22) x10^6/uL Hgb 9.2 L (11.2-15.7) g/dL Hct 31.1 L (34.1-44.9) % MCV 92.3 (79.4-94.8) fL MCH 27.3 (25.6-32.2) pg MCHC 29.6 L (32.2-35.5) g/dL RDW 14.4 (11.7-14.4) % Plt Count 213 (182-369) x10^3/uL MPV 9.1 L (9.4-12.3) fL Gran % 60.1 (34.0-71.1) % Immature Gran % (Auto) 0.2 (0.001-0.429) % Nucleat RBC Rel Count 0.0 (0.00-0.2) % Eos # (Auto) 0.40 H (0.04-0.36) x10^3/uL Immature Gran # (Auto) 0.01 (0.001-0.031) x10^3u/L Absolute Lymphs (auto) 1.32 (1.18-3.74) x10^3/uL Absolute Monos (auto) 0.67 (0.24-0.86) x10^3/uL Absolute Nucleated RBC 0.00 (0.00-0.012) x10^3u/L Lymphocytes % 21.4 (19.3-51.7) % Monocytes % 10.8 (4.7-12.5) % Eosinophils % 6.5 H (0.7-5.8) % Basophils % 1.0 (0.1-1.2) % Absolute Granulocytes 3.72 (1.56-6.13) x10^3/uL Basophils # 0.06 (0.01-0.08) x10^3/uL D-Dimer (0.0-0.50) mg/L Sodium 137 (135-145) mmol/L Potassium 5.2 H (3.5-5.1) mmol/L Chloride 99 (98-107) mmol/L Carbon Dioxide 37 H (22-30) mmol/L Anion Gap 5.5 (5-15) MEQ/L BUN 32 H (7-17) mg/dL Creatinine 0.76 (0.52-1.04) mg/dL Estimated GFR 79.2 ML/MIN Glucose 142 H (74-106) mg/dL Calcium 9.3 (8.4-10.2) mg/dL Total Bilirubin 0.50 (0.2-1.3) mg/dL AST 30 (14-36) U/L ALT 15 (0-35) U/L Alkaline Phosphatase 66 (38-126) U/L Troponin I < 0.012 (0.000-0.033) ng/mL NT-Pro-B Natriuret Pep 73.9 (<300) pg/mL Serum Total Protein 6.1 L (6.3-8.2) g/dL Albumin 3.3 L (3.5-5.0) g/dL Amylase 45 (30-110) U/L Lipase 45 (23-300) U/L Urine Color (Yellow) Urine Appearance (Clear) Urine pH (4.6-8.0) Ur Specific [place] (1.005-1.030) Urine Protein (Negative) Urine Glucose (UA) (Negative) mg/dL Urine Ketones (Negative) Urine Blood (Negative) Urine Nitrite (Negative) Urine Bilirubin (Negative) Urine Urobilinogen (0.2) mg/dL Ur Leukocyte Esterase (Negative) U Hyaline Cast (Auto) (0-2) /LPF Urine Microscopic RBC (0-5) /HPF Urine Microscopic WBC (0-5) /HPF Ur Epithelial Cells (None Seen) /HPF Urine Bacteria (None Seen) /HPF Urine Culture Reflexed (NO) - Progress Progress: improved Discussed with Dr.: Other (Dr. Kelsey) Will see patient in: hospital (observation) Counseled pt/family regarding: diagnosis, need for follow-up, rad results <GREER GARCÍA - Last Filed: 09/02/24 00:41> - Progress Progress Note: 09/02/24 00:35 Patient was checked out to me by Dr. Cortez at 2225 with pending transfer. Patient presented with hypotension and generalized weakness. She is on 2 L oxygen chronically. She is given gentle hydration and her blood pressure is currently stable in low 100s. She is not in any distress. EKG did not show any acute ST elevation and has negative troponins x 2. Normal white count, chest x-ray showed resolving pneumonia but still have some infiltrates and is given a dose of Levaquin. Patient has elevated D-dimers but she is allergic to iodine contrast and cannot have CTA done. No VQ scan can be done here over the weekend, I have called [facility] and no VQ scan services are available. [facility] is not accepting patients, called [facility] call, discussed with Dr. Kelsey at [facility], reviewed history, workup and agreed with transfer. I have discussed the results of workup, current management and plan of transfer with patient and daughter which they understand and agree. (GREER GARCÍA) Medical Desision Making - Independent Historian Additional History obtained from: Child - Discussion of managment Care discussed with:: hospitalist Reviewed:: Test results Agreed on:: Treatment plan, place in obs Will see patient: in hospital - Diagnostic Testing Diagnostic test were ordered, analyzed, and reviewed by me: Yes Radiological Interpretation: Reviewed by me - Risk of complications The pt has a mod risk of morbidity or mortality based on: Need for prescription drug management The pt has a high risk of morbidity or mortality based on: Decision regarding hospitilization or escalation of hosp level of care <GREER GARCÍA - Last Filed: 09/02/24 00:41> - Departure Departure Disposition: Transfer Critical Care Time: No <CARLOS CORTEZ - Last Filed: 09/01/24 22:15> - Departure Departure Disposition: Transfer <GREER GARCÍA - Last Filed: 09/02/24 00:41> - Departure Clinical Impression: D-dimer, elevated, Pneumonia, Hypotension Condition: Stable Referrals: RENETTA EPSTEIN MD [Primary Care Provider] - Follow up/PCP as directed
[2024-09-01] MEDS ORDERED: Sodium Chloride 0.9% 1000 ML 1,000 ML ONE (18:50)
[2024-09-01] MEDS: Sodium Chloride 0.9% 1000 ML 1,000 ML IV SCH (18:57)
[2024-09-01 19:11] LABS: Absolute Neutrophil Ct (ANC) 3.72 x10^3/uL (1.56-6.13); Basophil (Absolute #) 0.06 x10^3/uL (0.01-0.08); Eosinophil % 6.5 % (0.7-5.8); Hematocrit 31.1 % (34.1-44.9); Hemoglobin 9.2 g/dL (11.2-15.7); IMMATURE GRAN # 0.01 x10^3u/L (0.001-0.031); IMMATURE GRAN % 0.2 % (0.001-0.429); Lymphocyte (Absolute #) 1.32 x10^3/uL (1.18-3.74); Lymphocytes % 21.4 % (19.3-51.7); Mean Cell Volume 92.3 fL (79.4-94.8); Mean Corpuscular Hemoglobin 27.3 pg (25.6-32.2); Mean Corpuscular Hgb Concent. 29.6 g/dL (32.2-35.5); Mean Platelet Volume 9.1 fL (9.4-12.3); Monocyte (Absolute #) 0.67 x10^3/uL (0.24-0.86); Monocytes % 10.8 % (4.7-12.5); Neutrophil % 60.1 % (34.0-71.1); Platelet Count 213 x10^3/uL (182-369); Red Blood Count 3.37 x10^6/uL (3.93-5.22); Red Cell Distribution Width 14.4 % (11.7-14.4); White Blood Count 6.2 x10^3/uL (3.98-10.04)
[2024-09-01 19:32] LABS: ALBUMIN 3.3 g/dL (3.5-5.0); ANION GAP 5.5 MEQ/L (5-15); BILIRUBIN,TOTAL 0.5 mg/dL (0.2-1.3); Calcium 9.3 mg/dL (8.4-10.2); Creatinine 1 0.76 mg/dL (0.52-1.04); EST GLOMERULAR FILTRATION RATE 79.2 ML/MIN; NT PRO BNPII 73.9 pg/mL (<300); Potassium 5.2 mmol/L (3.5-5.1); Total Protein 6.1 g/dL (6.3-8.2)
[2024-09-01 22:18] LABS: Appearance Clear (Clear); Bacteria None Seen /HPF (None Seen); Bilirubin Negative (Negative); Blood Negative (Negative); Epithelial Cells None Seen /HPF (None Seen); Glucose, Urine Negative (Negative); Hyaline Casts NONE SEEN /LPF (0-2); Ketones Negative (Negative); Leukocyte Esterase Negative (Negative); Nitrite Negative (Negative); Ph 5.5 (4.6-8.0); Protein,Urine Dip Negative (Negative); RBC 0-2 /HPF (0-5); Urobilinogen 0.2 mg/dL (0.2); WBC 0-2 /HPF (0-5)
[2024-09-01] MEDS: LEVOFLOXACIN 750MG/150ML D5W 750 MG/150 ML BAG IV STA (23:00)
[2024-09-02] MEDS: Levofloxacin 500MG/100ML D5W 500 MG/100 ML BAG IV STA (00:06)
[2024-09-02] MEDS ORDERED: Levofloxacin 500MG/100ML D5W 500 MG/100 ML BAG IV ONE (00:06)
[2024-09-02] MEDS ORDERED: Sodium Chloride 0.9% 1000 ML 1,000 ML ONE (00:07)
[2024-09-02] MEDS: Sodium Chloride 0.9% 1000 ML 1,000 ML IV STA (00:07)
[2024-09-02 03:08] VITALS: BP 114/50; PULSE 60; RESP 12; O2SAT 97
--- NOTE | 2024-09-02 08:09 | XRAY ---
Indication: Cough. Comparison: August 13, 2024 Portable chest less inflated. Previous bibasilar infiltrates/atelectasis improved with minimal residual. Remaining heart and upper lungs unremarkable. Bony thorax intact again with osteopenia and degenerative changes. No new cardiopulmonary abnormalities.
== END 2024-09-02 02:55 | disposition short-term general hospital (02) ==
LOC: ED 16:50
DX: R79.1 Abnormal coagulation profile (principal); J18.9 Pneumonia, unspecified organism; I95.9 Hypotension, unspecified; R05.1 Acute cough; E78.5 Hyperlipidemia, unspecified; I10 Essential (primary) hypertension; E11.9 Type 2 diabetes mellitus without complications; Z79.899 Other long term (current) drug therapy; Z59.19 Other inadequate housing
CPT/HCPCS: 36415; 71045; 80053; 81001; 82150; 83690; 83880; 84484; 85025; 85379; 87086; 93005; 96360; 99285; J1956